=== PATIENT | female | born 1960 | race Caucasian/White ===

== ENCOUNTER 2024-04-01 17:05 | Inpatient (IN) | payer MEDICARE, MEDICAID, SELFPAY ==
[2024-04-01] VITALS (48 sets, daily range): BP systolic 105–161; BP diastolic 60–105; PULSE 78–145; RESP 14–55; TEMP 36.5; O2SAT 91–100
--- NOTE | ~2024-04-01 | CT_ITS ---
EXAMINATION: CTA chest PE protocol DATE: 04/01/2024 19:20 INDICATION: cp, sob, tachycardia, hypoxia TECHNIQUE: Computed tomography angiography (CTA) of the chest was performed with 100 mL Omnipaque-350 intravenous contrast timed to evaluate the pulmonary arteries. Coronal maximum intensity projection 3D-reconstructions were created by the technologist. The dose-length product (DLP) was 1119.04 mGy-cm . Automated exposure control and iterative reconstruction technique were employed. COMPARISON: None. FINDINGS: Lung parenchyma and airways: Bilateral dependent atelectasis, otherwise clear. Patent airways. Pleura: Unremarkable. Thoracic inlet, axillae and chest wall: Unremarkable. Thoracic aorta: No significant dilation. No dissection. Mild atherosclerotic calcifications. Mediastinum: Dilated central pulmonary arteries as can be seen with pulmonary arterial hypertension. Heart and pericardium: Cardiomegaly. Coronary artery calcifications: Moderate. Upper abdomen: No significant finding. Bones: Cholelithiasis, without inflammatory changes. Severe left kidney atrophy.. Pulmonary arteries: Study quality: Adequate. No pulmonary emboli detected. IMPRESSION: No CT evidence of acute pulmonary embolus. No acute process detected in the chest. Reviewed, dictated and finalized at location K. H EXPERT
--- NOTE | ~2024-04-01 | XR_ITS ---
Portable chest x-ray Comparison: 04/10/2024 Clinical History: Hypoxia Findings: Probable mild central pulmonary venous congestive change present. Questionable developing hazy opacity right lung base. Cardiomediastinal silhouette is stable. Bones and soft tissues are unr emarkable. Impression: Central congestive change and questionable focal developing hazy right basilar airspace disease. Stable cardiomegaly. Reviewed, dictated and finalized at location . R AND FIRE TECHNICIAN Impression: Central congestive change and questionable focal developing hazy right basilar airspace disease. Stable cardiomegaly.
--- NOTE | ~2024-04-01 | XR_ITS ---
CHEST RADIOGRAPH CLINICAL HISTORY: ?CHF . COMPARISON: Reference is made to a CTA of the chest dated 04/01/2024 (3 days earlier) TECHNIQUE: Single portable view of the chest. FINDINGS The cardiomediastinal silhouette is unremarkable. Increased interstitial markings are identified bilaterally, findings suggesting mild pulmonary vascul ar congestion. The lungs are otherwise clear. IMPRESSION: Mild pulmonary vascular congestion, without focal infiltrate or effusion. Reviewed, dictated and finalized at location A. PROFESSIONAL
--- NOTE | ~2024-04-01 | XR_ITS ---
EXAMINATION: XR chest 1V portable DATE: 04/10/2024 08:48 INDICATION: Congestive heart failure TECHNIQUE: frontal view of the chest was obtained. COMPARISON: Chest radiograph dated 04/09/24 FINDINGS: Cardiomegaly with diffuse increased interstitial pattern with peripheral Lucy B-lines consistent wi th mild pulmonary edema. Airspace opacities in the left lower lung zone likely related to atelectasis although differential includes pneumonia. No pleural effusion or pneumothorax. IMPRESSION: 1. Likely congestive heart failure with cardiomegaly and mild pulmonary edema. 2. Atelectasis versus less likely pneumonia in the left lower lung zone. Reviewed, dictated and finalized at location B. PRESIDENT OF MARKETING
--- NOTE | ~2024-04-01 | US_ITS ---
EXAMINATION: US venous doppler LE DATE: 04/01/2024 19:41 INDICATION: le pain, swelling . TECHNIQUE: Grayscale images without and with compression and Doppler images of the bilateral lower ex tremity veins were obtained. COMPARISON: None FINDINGS: The right common femoral vein, profunda (deep) femoral vein, femoral vein, popliteal vein, peroneal v ein, posterior tibial veins, gastrocnemius vein, and greater saphenous vein are patent. The left common femoral vein, profunda (deep) femoral vein, femoral vein, popliteal vein, peroneal v ein, posterior tibial veins, gastrocnemius vein, and greater saphenous vein are patent. IMPRESSION: Patent bilateral lower extremity veins. No evidence of deep venous thrombosis. Reviewed, dictated and finalized at location K. MING POOL ATTENDANT
--- NOTE | ~2024-04-01 | XR_ITS ---
CHEST RADIOGRAPH CLINICAL HISTORY: Hypoxia . COMPARISON: 04/06/2024 TECHNIQUE: Single portable view of the chest. FINDINGS The cardiomediastinal silhouette is enlarged, unchanged. Increased interstitial markings are identified bilaterally, findings suggesting moderate pulmonary va scular congestion. Air bronchograms are present within the right mid to lower lung field suggesting an early infiltrate. The remainder of the lungs are clear. IMPRESSION: Moderate pulmonary vascular congestion with possible early infiltrate in the right mid to lower lung field. Reviewed, dictated and finalized at location A. CE DISPATCHER IMPRESSION: Moderate pulmonary vascular congestion with possible early infiltrate in the ri ght mid to lower lung field.
--- NOTE | ~2024-04-01 | XR_ITS ---
EXAMINATION: XR chest 1V portable DATE: 04/06/2024 11:11 INDICATION: Hypoxia TECHNIQUE: frontal view of the chest was obtained. COMPARISON: Chest radiograph dated 04/04/2024 FINDINGS: Cardiomegaly. Pulmonary vascular congestion and mild increased interstitial pattern in the bilateral lower lung zones consistent with mild pulmonary edema. No pleural effusion or pneumothorax. IMPRESSION: 1. Likely congestive heart failure with cardiomegaly, pulmonary vascular congestion and mild pulmonar y edema in the lower lung zones. Reviewed, dictated and finalized at location A. NICAL PRODUCER IMPRESSION: 1. Likely congestive heart failure with cardiomegaly, pulmonary vascular conges tion and mild pulmonary edema in the lower lung zones.
--- NOTE | ~2024-04-01 | US_ITS ---
EXAMINATION: US renal BI DATE: 04/05/2024 14:55 INDICATION: Acute kidney injury on chronic kidney disease. TECHNIQUE: Multiple ultrasound grayscale images of the kidneys were obtained. COMPARISON: Chest CT 04/01/2024 FINDINGS: The right kidney measures 10.8 x 6.0 x 5.7 cm. The left kidney is severely atrophic and not well visu alized. The right kidney demonstrates normal parenchymal echogenicity. There is no hydronephrosis. Th e bladder is not well distended. IMPRESSION: 1. Normal right kidney. 2. Severe atrophy of left kidney. Reviewed, dictated and finalized at location A. GER WIND
--- NOTE | 2024-04-01 17:18 | ECG_ITS ---
Test Date: 2024-04-01 17:26:43 Measurements Intervals [place] Rate: 117 P: 0 MD: 0 QRS: -55 QRSD: 158 T: 105 QT: 393 QTc: 550 Interpretive Statements ATRIAL FIBRILLATION WITH RAPID VENTRICULAR RESPONSE LEFT AXIS DEVIATION LEFT BUNDLE BRANCH BLOCK BASELINE ARTIFACT- I, II, III, AVR, AVL, AVF, V2 ABNORMAL ECG No previous ECG available for comparison Electronically Signed On 04-01-2024 19:05:21 [employer] by Kristofer Campa D.O.
--- NOTE | 2024-04-01 17:25 | ED_ITS ---
HPI - SOB/Dyspnea General Chief Complaint: Shortness of Breath/Dyspnea <Sarita Valverde PA-C - Last Filed: 04/02/24 01:48> Stated Complaint: CP <CHRISTINE العلي Last Filed: 04/02/24 01:48> Time Seen by Provider: 04/01/24 17:11 <CHRISTINE العلي Last Filed: 04/02/24 01:48> Source: patient <CHRISTINE العلي Last Filed: 04/02/24 01:48> Mode of arrival: EMS <CHRISTINE العلي Last Filed: 04/02/24 01:48> Limitations: no limitations <CHRISTINE العلي Last Filed: 04/02/24 01:48> History of Present Illness HPI Narrative: This is a 64-year-old female that presents to the emergency department for hypoxia. She was evaluated at urgent care she has been having pain down her right leg. She is to be hypoxic after walking into the facility. Placed on 4 L nasal cannula. She does not usually wear oxygen. Patient has history of coronary artery disease, diabetes, chronic kidney disease, CHF. Also noted to be in AFib with RVR which would be new for her. Reports she was having some chest discomfort earlier today. No currnet chest pain. Reports a mild cough. Reports mild swelling in the lower extremities. Denies fevers. <Sarita Valverde PA-C - Last Filed: 04/02/24 01:48> Related Data Home Medications: Home Medications ?Medication ?Instructions ?Recorded ?Confirmed ?Last Taken ?Type albuterol sulfate 90 mcg/actuation 2 puff inhalation PRN 04/02/24 04/02/24 04/01/24 08:00 History aerosol inhaler 2 puff allopurinol 100 mg tablet See Rx Instructions PO .COMPLEX 04/02/24 04/02/24 04/01/24 08:00 History 300 mg atorvastatin 80 mg tablet 80 mg PO DAILY 04/02/24 04/02/24 04/01/24 08:00 History 80 mg buspirone 5 mg tablet 5 mg PO BID 04/02/24 04/02/24 04/01/24 08:00 History 5 mg clopidogrel 75 mg tablet 75 mg PO DAILY 04/02/24 04/02/24 04/01/24 08:00 History 75 mg empagliflozin 10 mg tablet 10 mg PO DAILY 04/02/24 04/02/24 04/01/24 08:00 History (Jardiance) 10 mg eplerenone 25 mg tablet 25 mg PO DAILY 04/02/24 04/02/24 04/01/24 08:00 History 25 mg escitalopram oxalate 20 mg tablet 20 mg PO DAILY 04/02/24 04/02/24 04/01/24 08:00 History 20 mg ezetimibe 10 mg tablet 10 mg PO DAILY 04/02/24 04/02/24 04/01/24 08:00 History 10 mg insulin lispro 100 unit/mL 1 sliding scale dose subcut ACHS 04/02/24 04/02/24 04/01/24 00:00 History subcutaneous pen (Humalog KwikPen 10 u (U-100) Insulin) isosorbide mononitrate 120 mg 120 mg PO DAILY 04/02/24 04/02/24 04/01/24 08:00 History tablet,extended release 24 hr 120 mg levothyroxine 100 mcg tablet 100 mcg PO DAILY 04/02/24 04/02/24 04/02/24 08:00 History 100 mcg metoprolol succinate 25 mg 25 mg PO DAILY 04/02/24 04/02/24 04/01/24 08:00 History tablet,extended release 24 hr 25 mg sacubitril 97 mg-valsartan 103 mg 1 tablet PO BID 04/02/24 04/02/24 04/01/24 08:00 History tablet (Entresto) 1 tablet semaglutide 0.25 mg or 0.5 mg (2 0.25 mg subcut WEEKLY 04/02/24 04/02/24 03/30/24 08:00 History mg/3 mL) subcutaneous pen injector 0.25 mg (Ozempic) torsemide 10 mg tablet See Rx Instructions PO .COMPLEX 04/02/24 04/02/24 04/01/24 08:00 History 40 <Sarita Valverde PA-C - Last Filed: 04/02/24 01:48> Allergies/Adverse Reactions: Allergies Allergy/AdvReac Type Severity Reaction Status Date / Time Penicillins Allergy Severe Hives Verified 04/01/24 17:28 <Sarita Valverde PA-C - Last Filed: 04/02/24 01:48> Review of Systems 2 Review of Systems: CONSTITUTIONAL: Denies fever CARDIOVASCULAR: Reports chest pain, and edema. RESPIRATORY: Reports cough and dyspnea. <Sarita Valverde PA-C - Last Filed: 04/02/24 01:48> All systems reviewed & are unremarkable except as noted in HPI and below < Sarita Valverde PA-C - Last Filed: 04/02/24 01:48> [facility] Past Medical History Medical History: Medical History (Updated 04/02/24 @ 15:27 by Carolyne Gage, ISABEL) History of diabetes mellitus History of chronic kidney disease History of CHF (congestive heart failure) History of coronary artery disease <Sarita Valverde PA-C - Last Filed: 04/02/24 01:48> Family History Family History: Family History (Updated 04/02/24 @ 14:47 by Sarita Henriquez RN) Mother Uterus cancer Alzheimer dementia S/P CABG x 3 Father Lung cancer Sibling Transplanted kidney Myocardial infarct Cerebrovascular accident Brittle diabetes Diabetes mellitus <Sarita Valverde PA-C - Last Filed: 04/02/24 01:48> Social History Social History: Social History (Updated 04/01/24 @ 17:31 by Sarita Valverde PA-C) Smoking status: Never smoker Alcohol intake: never Substance use: never Substance use type: does not use Do You Feel Safe in your Home?: Yes Lack of Transportation: No Lack of Food: Never True Current Housing: I Do Not Have Housing Concerned About Future Housing: No Difficulty Paying Gas/Electric Bills: No Difficulty Paying for Meds: No Currently Unemployed: No Education: Associate Degree Difficulty w/ Childcare or Family Care: No Spiritual care concerns: No <Sarita Valverde PA-C - Last Filed: 04/02/24 01:48> Exam 2 Narrative: GENERAL: Well-appearing, obese, and in no acute distress. HEAD: Normocephalic, atraumatic. EYES: EOMI. ENT: Nares clear, no rhinorrhea or epistaxis. Mucous membranes moist. Oropharynx without tonsillar hypertrophy exudate or other lesions. NECK: Supple. No adenopathy or masses. CHEST: Clear to auscultation. No respiratory distress. No wheezes rales or rhonchi HEART: Irregularly irregular. No murmur heard. Normal peripheral pulses. EXTREMITIES: Normal range of motion. Mild edema to the bilateral lower extremities SKIN: Warm, dry, no rash. NEURO: No focal deficits. Alert and oriented x3. PSYCH: Normal mood and affect <Sarita Valverde PA-C - Last Filed: 04/02/24 01:48> Course Course Emergency Course: patient updated on her workup and recommendation for admission <Sarita Valverde PA-C - Last Filed: 04/02/24 01:48> LABORATORY CHIEF/PA Physician Supervision For this patient encounter, I reviewed the LABORATORY CHIEF or PA documentation, treatment plan, and medical decision making; and I had [id number] time with this patient. <Vince Whitaker MD - Last Filed: 04/02/24 23:56> Consultations Consultation #1: spoke with hospitalist about patient and workup who accepts admission < Sarita Valverde PA-C - Last Filed: 04/02/24 01:48> Date: 04/01/24 <Sarita Valverde PA-C - Last Filed: 04/02/24 01:48> Vital Signs Vital signs: Vital Signs Temperature 97.7 F 04/01/24 17:01 Pulse Rate 126 H 04/01/24 17:01 Respiratory Rate 24 H 04/01/24 17:01 Blood Pressure 130/86 04/01/24 17:01 Pulse Oximetry 93 04/01/24 17:01 Oxygen Delivery Nasal Cannula 04/01/24 17:01 Oxygen Flow Rate 4 04/01/24 17:01 Temperature 98.3 F 04/02/24 23:45 Pulse Rate 88 04/02/24 23:45 Respiratory Rate 20 04/02/24 23:45 Blood Pressure 127/45 L 04/02/24 23:45 Pulse Oximetry 97 04/02/24 23:45 Oxygen Delivery Nasal Cannula 04/02/24 20:00 Oxygen Flow Rate 2 04/02/24 20:00 <Sarita Valverde PA-C - Last Filed: 04/02/24 01:48> Vital Signs Temperature 97.7 F 04/01/24 17:01 Pulse Rate 126 H 04/01/24 17:01 Respiratory Rate 24 H 04/01/24 17:01 Blood Pressure 130/86 04/01/24 17:01 Pulse Oximetry 93 04/01/24 17:01 Oxygen Delivery Nasal Cannula 04/01/24 17:01 Oxygen Flow Rate 4 04/01/24 17:01 Temperature 98.3 F 04/02/24 23:45 Pulse Rate 88 04/02/24 23:45 Respiratory Rate 20 04/02/24 23:45 Blood Pressure 127/45 L 04/02/24 23:45 Pulse Oximetry 97 04/02/24 23:45 Oxygen Delivery Nasal Cannula 04/02/24 20:00 Oxygen Flow Rate 2 04/02/24 20:00 <Vince Whitaker MD - Last Filed: 04/02/24 23:56> MDM - SOB/Dyspnea MDM Narrative Medical decision making narrative: Patient presents to the emergency department from urgent care for respiratory failure with hypoxia, he was a atrial fibrillation with RVR. Patient stable on 4 L nasal cannula. Rates initially in the 120s showing AFib. Given a dose of metoprolol IV. She did convert to sinus rhythm. Cbc without leukocytosis. Reporting some chest discomfort earlier in the day. No active chest pain at this time. Her baseline and 3 hour troponin are negative. Influenza, RSV and COVID screens are negative. CT of the chest obtained for further evaluation. No evidence for PE. Patient also reporting some leg discomfort. Bilateral venous Doppler without evidence of DVT. patient updated on her workup and recommendation for admission. spoke with hospitalist about patient and workup who accepts admission <Sarita Valverde PA-C - Last Filed: 04/02/24 01:48> Differential Diagnosis Differential diagnosis: Likely congestive heart failure, community acquired pneumonia, pulmonary embolism and other (afib with RVR) <Sarita Valverde PA-C - Last Filed: 04/02/24 01:48> Lab Data Attestation: I reviewed the patient's lab results. <Sarita Valverde PA-C - Last Filed: 04/02/24 01:48> Result diagrams: 04/02/24 19:36 04/02/24 05:46 <Sarita Valverde PA-C - Last Filed: 04/02/24 01:48> Labs: Lab Results 04/01/24 04/01/24 04/01/24 Range/Units 17:32 18:20 21:42 WBC 8.8 (4.5-10.0) K/mm3 RBC 3.58 L (4.2-5.4) M/mm3 Hgb 10.8 L (12.0-15.0) g/dL Hct 35.3 L (37.0-47.0) % MCV 98.6 (80-100) fl MCH 30.2 (26-34) pg MCHC 30.6 L (32-36) g/dl RDW 14.5 (11.5-14.5) % Plt Count 233 (150-375) k/mm3 MPV 9.6 (7.4-10.4) fl Immature Gran % (Auto) 0.5 (0-0.5) % Neut % (Auto) 87.1 H (45.5-73.1) % Lymph % (Auto) 5.6 L (18.3-44.2) % Blaine % (Auto) 5.3 (2.6-8.5) % Eos % (Auto) 1.0 (0-4.4) % Baso % (Auto) 0.5 (0.2-1.2) % Lymph # (Auto) 0.49 L (0.9-3.2) K/mm3 Blaine # (Auto) 0.5 (0.1-0.6) K/mm3 Eos # (Auto) 0.1 (0-0.3) K/mm3 Baso # (Auto) 0.0 (0.0-0.1) K/mm3 Abs Immat Gran (auto) 0.04 H (0.00-0.031) K/mm3 Absolute Neuts (auto) 7.7 H (1.3-6.7) K/mm3 Absolute Nucleated RBC 0.000 (0.0-0.012) K/mm3 Nucleated RBC % 0.0 (0.0-0.2) % PT 13.6 (11.1-14.7) Seconds INR 1.0 APTT 30.2 (22.3-36.8) Seconds Sodium 142 (137-145) mmol/L Potassium 4.0 (3.4-5.0) mmol/L Chloride 104 (98-107) mmol/L Carbon Dioxide 27 (22-30) mmol/L Anion Gap 11 (4-12) mmol/L BUN 46 H (7-17) mg/dL Creatinine 1.55 H (0.7-1.0) mg/dL Estim Creat Clear Calc 43 ml/min Estimated GFR 33 L (59 - ) Glucose 62 L (65-110) mg/dL POC Capillary Glucose 52 L* (65-105) mg/dl Calcium 9.6 (8.4-10.2) mg/dL Total Bilirubin 0.6 (0.2-1.3) mg/dL AST 19 (14-36) U/L ALT 13 (6-35) U/L Alkaline Phosphatase 95 (38-126) U/L Troponin I 0.022 0.032 D (0.000-0.034) ng/mL NT-Pro-B Natriuret Pep 2450 H (19.9-100) pg/mL Total Protein 7.0 (6.3-8.2) g/dL Albumin 3.6 (3.5-5.1) g/dL Influenza A (RT-PCR) Negative (Negative) Influenza B (RT-PCR) Negative (Negative) RSV (RT-PCR) Negative (Negative) SARS-CoV-2 RNA (RT-PCR) Negative (Negative) 04/01/24 04/02/24 04/02/24 Range/Units 22:06 05:46 06:09 WBC 6.2 (4.5-10.0) K/mm3 RBC 3.31 L (4.2-5.4) M/mm3 Hgb 9.8 L (12.0-15.0) g/dL Hct 32.7 L (37.0-47.0) % MCV 98.8 (80-100) fl MCH 29.6 (26-34) pg MCHC 30.0 L (32-36) g/dl RDW 14.6 H (11.5-14.5) % Plt Count 233 (150-375) k/mm3 MPV 9.8 (7.4-10.4) fl Immature Gran % (Auto) 0.3 (0-0.5) % Neut % (Auto) 74.9 H (45.5-73.1) % Lymph % (Auto) 13.9 L (18.3-44.2) % Blaine % (Auto) 7.4 (2.6-8.5) % Eos % (Auto) 2.9 (0-4.4) % Baso % (Auto) 0.6 (0.2-1.2) % Lymph # (Auto) 0.86 L (0.9-3.2) K/mm3 Blaine # (Auto) 0.5 (0.1-0.6) K/mm3 Eos # (Auto) 0.2 (0-0.3) K/mm3 Baso # (Auto) 0.0 (0.0-0.1) K/mm3 Abs Immat Gran (auto) 0.02 (0.00-0.031) K/mm3 Absolute Neuts (auto) 4.6 (1.3-6.7) K/mm3 Absolute Nucleated RBC 0.000 (0.0-0.012) K/mm3 Nucleated RBC % 0.0 (0.0-0.2) % PT 13.7 (11.1-14.7) Seconds INR 1.0 APTT 30.8 (22.3-36.8) Seconds Sodium 142 (137-145) mmol/L Potassium 4.1 (3.4-5.0) mmol/L Chloride 106 (98-107) mmol/L Carbon Dioxide 30 (22-30) mmol/L Anion Gap 6 (4-12) mmol/L BUN 45 H (7-17) mg/dL Creatinine 1.59 H (0.7-1.0) mg/dL Estim Creat Clear Calc 42 ml/min Estimated GFR 32 L (59 - ) Glucose 95 (65-110) mg/dL POC Capillary Glucose 116 H (65-105) mg/dl Calcium 9.2 (8.4-10.2) mg/dL Total Bilirubin 0.6 (0.2-1.3) mg/dL AST 20 (14-36) U/L ALT 10 (6-35) U/L Alkaline Phosphatase 86 (38-126) U/L Troponin I (0.000-0.034) ng/mL NT-Pro-B Natriuret Pep (19.9-100) pg/mL Total Protein 7.0 (6.3-8.2) g/dL Albumin 3.3 L (3.5-5.1) g/dL Influenza A (RT-PCR) (Negative) Influenza B (RT-PCR) (Negative) RSV (RT-PCR) (Negative) SARS-CoV-2 RNA (RT-PCR) (Negative) <Sarita Valverde PA-C - Last Filed: 04/02/24 01:48> Lab Results 04/01/24 04/01/24 04/01/24 Range/Units 17:32 18:20 21:42 WBC 8.8 (4.5-10.0) K/mm3 RBC 3.58 L (4.2-5.4) M/mm3 Hgb 10.8 L (12.0-15.0) g/dL Hct 35.3 L (37.0-47.0) % MCV 98.6 (80-100) fl MCH 30.2 (26-34) pg MCHC 30.6 L (32-36) g/dl RDW 14.5 (11.5-14.5) % Plt Count 233 (150-375) k/mm3 MPV 9.6 (7.4-10.4) fl Immature Gran % (Auto) 0.5 (0-0.5) % Neut % (Auto) 87.1 H (45.5-73.1) % Lymph % (Auto) 5.6 L (18.3-44.2) % Blaine % (Auto) 5.3 (2.6-8.5) % Eos % (Auto) 1.0 (0-4.4) % Baso % (Auto) 0.5 (0.2-1.2) % Lymph # (Auto) 0.49 L (0.9-3.2) K/mm3 Blaine # (Auto) 0.5 (0.1-0.6) K/mm3 Eos # (Auto) 0.1 (0-0.3) K/mm3 Baso # (Auto) 0.0 (0.0-0.1) K/mm3 Abs Immat Gran (auto) 0.04 H (0.00-0.031) K/mm3 Absolute Neuts (auto) 7.7 H (1.3-6.7) K/mm3 Absolute Nucleated RBC 0.000 (0.0-0.012) K/mm3 Nucleated RBC % 0.0 (0.0-0.2) % PT 13.6 (11.1-14.7) Seconds INR 1.0 APTT 30.2 (22.3-36.8) Seconds Sodium 142 (137-145) mmol/L Potassium 4.0 (3.4-5.0) mmol/L Chloride 104 (98-107) mmol/L Carbon Dioxide 27 (22-30) mmol/L Anion Gap 11 (4-12) mmol/L BUN 46 H (7-17) mg/dL Creatinine 1.55 H (0.7-1.0) mg/dL Estim Creat Clear Calc 43 ml/min Estimated GFR 33 L (59 - ) Glucose 62 L (65-110) mg/dL POC Capillary Glucose 52 L* (65-105) mg/dl Calcium 9.6 (8.4-10.2) mg/dL Total Bilirubin 0.6 (0.2-1.3) mg/dL AST 19 (14-36) U/L ALT 13 (6-35) U/L Alkaline Phosphatase 95 (38-126) U/L Troponin I 0.022 0.032 D (0.000-0.034) ng/mL NT-Pro-B Natriuret Pep 2450 H (19.9-100) pg/mL Total Protein 7.0 (6.3-8.2) g/dL Albumin 3.6 (3.5-5.1) g/dL Influenza A (RT-PCR) Negative (Negative) Influenza B (RT-PCR) Negative (Negative) RSV (RT-PCR) Negative (Negative) SARS-CoV-2 RNA (RT-PCR) Negative (Negative) 04/01/24 04/02/24 04/02/24 Range/Units 22:06 05:46 06:09 WBC 6.2 (4.5-10.0) K/mm3 RBC 3.31 L (4.2-5.4) M/mm3 Hgb 9.8 L (12.0-15.0) g/dL Hct 32.7 L (37.0-47.0) % MCV 98.8 (80-100) fl MCH 29.6 (26-34) pg MCHC 30.0 L (32-36) g/dl RDW 14.6 H (11.5-14.5) % Plt Count 233 (150-375) k/mm3 MPV 9.8 (7.4-10.4) fl Immature Gran % (Auto) 0.3 (0-0.5) % Neut % (Auto) 74.9 H (45.5-73.1) % Lymph % (Auto) 13.9 L (18.3-44.2) % Blaine % (Auto) 7.4 (2.6-8.5) % Eos % (Auto) 2.9 (0-4.4) % Baso % (Auto) 0.6 (0.2-1.2) % Lymph # (Auto) 0.86 L (0.9-3.2) K/mm3 Blaine # (Auto) 0.5 (0.1-0.6) K/mm3 Eos # (Auto) 0.2 (0-0.3) K/mm3 Baso # (Auto) 0.0 (0.0-0.1) K/mm3 Abs Immat Gran (auto) 0.02 (0.00-0.031) K/mm3 Absolute Neuts (auto) 4.6 (1.3-6.7) K/mm3 Absolute Nucleated RBC 0.000 (0.0-0.012) K/mm3 Nucleated RBC % 0.0 (0.0-0.2) % PT 13.7 (11.1-14.7) Seconds INR 1.0 APTT 30.8 (22.3-36.8) Seconds Sodium 142 (137-145) mmol/L Potassium 4.1 (3.4-5.0) mmol/L Chloride 106 (98-107) mmol/L Carbon Dioxide 30 (22-30) mmol/L Anion Gap 6 (4-12) mmol/L BUN 45 H (7-17) mg/dL Creatinine 1.59 H (0.7-1.0) mg/dL Estim Creat Clear Calc 42 ml/min Estimated GFR 32 L (59 - ) Glucose 95 (65-110) mg/dL POC Capillary Glucose 116 H (65-105) mg/dl Calcium 9.2 (8.4-10.2) mg/dL Total Bilirubin 0.6 (0.2-1.3) mg/dL AST 20 (14-36) U/L ALT 10 (6-35) U/L Alkaline Phosphatase 86 (38-126) U/L Troponin I (0.000-0.034) ng/mL NT-Pro-B Natriuret Pep (19.9-100) pg/mL Total Protein 7.0 (6.3-8.2) g/dL Albumin 3.3 L (3.5-5.1) g/dL Influenza A (RT-PCR) (Negative) Influenza B (RT-PCR) (Negative) RSV (RT-PCR) (Negative) SARS-CoV-2 RNA (RT-PCR) (Negative) <Vince Whitaker MD - Last Filed: 04/02/24 23:56> Imaging Data Radiologist's impression: ITS Impressions Chest CTA 04/01/24 19:46 IMPRESSION: No CT evidence of acute pulmonary embolus. No acute process detected in the chest. Venous Doppler Study 04/01/24 19:59 IMPRESSION: Patent bilateral lower extremity veins. No evidence of deep venous thrombosis. <Sarita Valverde PA-C - Last Filed: 04/02/24 01:48> ECG Data EKG #1: ECG completion date: 04/01/24 <Sarita Valverde PA-C - Last Filed: 04/02/24 01:48> EKG Interpretation: atrial fibrillation (with RVR) and LBBB <Sarita Valverde PA-C - Last Filed: 04/02/24 01:48> EKG #2: ECG completion date: 04/01/24 <Sarita Valverde PA-C - Last Filed: 04/02/24 01:48> EKG Interpretation: normal rate, sinus rhythm and LBBB <Sarita Valverde PA-C - Last Filed: 04/02/24 01:48> Critical Care Time Critical Care Time Critical Care Time: Yes <Sarita Valverde PA-C - Last Filed: 04/02/24 01:48> Total Critical Care Time: 35 <CHRISTINE العلي Last Filed: 04/02/24 01:48> Discharge Plan Discharge Clinical Impression: Acute hypoxic respiratory failure, Atrial fibrillation with RVR <Sarita Valverde PA-C - Last Filed: 04/02/24 01:48> Patient Disposition: Still a Patient <Sarita Valverde PA-C - Last Filed: 04/02/24 01:48> Condition: Improved <CHRISTINE العلي Last Filed: 04/02/24 01:48>
[2024-04-01 17:40] LABS: Basophils Percent Auto 0.5 % (0.2-1.2); Eosinophils Absolute Auto 0.1 K/mm3 (0-0.3); Hematocrit 35.3 % (37.0-47.0); Hemoglobin 10.8 g/dL (12.0-15.0); Immature Granulocyte Absolute 0.04 K/mm3 (0.00-0.031); Immature Granulocyte Percent A 0.5 % (0-0.5); Lymphocytes Absolute Auto 0.49 K/mm3 (0.9-3.2); Lymphocytes Percent Auto 5.6 % (18.3-44.2); Mean Corpuscular HGB Conc 30.6 g/dl (32-36); Mean Corpuscular Hemoglobin 30.2 pg (26-34); Mean Corpuscular Volume 98.6 fl (80-100); Mean Platelet Volume 9.6 fl (7.4-10.4); Monocytes Absolute Auto 0.5 K/mm3 (0.1-0.6); Monocytes Percent Auto 5.3 % (2.6-8.5); Neutrophils Absolute Auto 7.7 K/mm3 (1.3-6.7); Neutrophils Percent Auto 87.1 % (45.5-73.1); Platelet Count Result 233 k/mm3 (150-375); Red Blood Count 3.58 M/mm3 (4.2-5.4); Red Cell Distribution Width 14.5 % (11.5-14.5); White Blood Count 8.8 K/mm3 (4.5-10.0)
[2024-04-01 17:56] LABS: Alanine Aminotransferase 13 U/L (6-35); Albumin Level 3.6 g/dL (3.5-5.1); Alkaline Phosphatase 95 U/L (38-126); Anion Gap 11 mmol/L (4-12); Aspartate Amino Transferase 19 U/L (14-36); Bilirubin,Total 0.6 mg/dL (0.2-1.3); Blood Urea Nitrogen 46 mg/dL (7-17); Calcium 9.6 mg/dL (8.4-10.2); Carbon Dioxide 27 mmol/L (22-30); Chloride 104 mmol/L (98-107); Estimated CRCL calculation 43 ml/min; Estimated Glomerular Filt Rate 33; Glucose 62 mg/dL (65-110); Sodium 142 mmol/L (137-145)
[2024-04-01 18:05] LABS: NT Pro B Type Natriuretic Pept 2450 pg/mL (19.9-100)
[2024-04-01 18:08] LABS: Troponin I 0.022 ng/mL (0.000-0.034)
[2024-04-01 18:10] LABS: Prothrombin Time 13.6 Seconds (11.1-14.7)
[2024-04-01 18:11] LABS: Partial Thromboplastin Time 30.2 Seconds (22.3-36.8)
[2024-04-01 18:23] LABS: Influenza A QL RT-PCR Negative (Negative); Influenza B QL RT-PCR Negative (Negative); RSV RNA, RT-PCR Negative (Negative); SARS-CoV-2 RNA PCR Negative (Negative)
[2024-04-01 18:24] LABS: Glucose Point of Care 52 mg/dl (65-105)
[2024-04-01] MEDS: METOPROLOL TARTRATE INJ 5 MG/5 ML VIAL IV PUSH (18:27)
--- NOTE | 2024-04-01 18:42 | PC.NURSE ---
Pt hypoglycemic, given sandwich and juice PO. Tolerated well.
--- OUTSIDE RECORDS SUMMARY | 2024-04-01 18:45 | XMS_ITS | Clinical Summary ---
Author Organization [facility] Address [address] [place] [address] [place] [address] Care Team Providers Care Janitorial Manager Name Role Phone Himanshu Cantu MD Primary Care Provider + [phone] Source Comments [facility],non[facility] Affiliates and Associated Physician Practices is amultiple site organization consisting of ambulatory clinics and hospital sitesin [place], [place], [place] and [place]. This disclosure is being madepursuant to the Care Everywhere program and may not contain all information available regarding this patient. Last updated 17.[facility] Allergies Active Allergy Reactions Criticality Noted Date Comments Penicillins Urticaria 02/20/2008 Medications * Be aware that medications may not be up to date on this document. Alwaysverify current medications with the patient. Medication Sig Dispensed Refills Start Date End Date Status CARDIZEM CD 360 MG CP24 Take 360 mg by mouth daily. Active COREG 25 MG TABS Take 25 mg by mouth 2 times daily with breakfast and dinner. Active CRESTOR 20 MG TABS Take 20 mg by mouth daily. Active INSPRA 25 MG TABS Take 25 mg by mouth daily. Active insulin glargine (LANTUS SOLOSTAR) injectionIndication s:Diabetes mellitus type II, uncontrolled Inject 0.2 mL subcutaneously at bedtime. 5 11 02/20/2008 Active insulin lispro (HUMALOG KWIKPEN) injectionIndication s:Diabetes mellitus type II, uncontrolled Inject 0.2 mL subcutaneously 3 times daily before meals. 5 pens 11 02/20/2008 Active glucose blood (ONETOUCH ULTRA TEST STRIPS) strip Use 1 Strip once. 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 Acute gouty arthritis 02/20/2008 Hypertension, malignant 02/20/2008 Hypertensive nephropathy 02/20/2008 Gout 11/09/2006 Overview (11/06/2014): Diabetes mellitus type II, uncontrolled 12/23/19 06 CHF (congestive heart failure) 08/24/2004 Immunizations Name Administration Dates Next Due INFLUENZA VACCINE 10/30/2010 Family History Medical History Relation Name Comments Cancer Other 1 Alzheimer's Disease Other 2 Diabetes Other 3 Relation Name Status Comments Other 1 Other 2 Other 3 Social History Tobacco Use Types Packs/Day Years Used Date Smoking Tobacco: Never Alcohol Use Standard Drinks/Week Comments No 0 (1 standard drink = 0.6 oz pur e alcohol) Sex and Gender Information Value Date Recorded Sex Assigned at Not on file Gender Identity Not on file Sexual Orientation Not on file Last Filed Vital Signs Vital Sign Reading Time Taken Comments Blood Pressure 167/91 10/20/2015 11:00 AM CDT Pulse 78 10/20/2015 8:40 AM CDT Temperature 37 C (98.6 F) 11/26/2008 3:50 PM CDT Respiratory Rate - - Oxygen Saturation - - Inhaled Oxygen Concentration - - Weight 122.5 kg (270 lb) 10/20/2015 11:00 AM CDT Height 160.7 cm (5' 3.25 ) 10/20/2015 11:00 AM C DT Body Mass Index 47.45 10/20/2015 11:00 AM CDT Plan of Treatment Health Maintenance Due Date Last Done Comments BONE DENSITY TESTING 1960 COLOGUARD (AGES 45-75) - COL ON CA SCREENING 1958 COLON MONITORING 1958 COLONOSCOPY - COLON CA SCREENING 1958 CT COLONOGRAPHY - COLON CA SCREENING 1960 Colorectal Cancer Screening 1958 FIT - COLON CA SCREENING 1958 FLEX SIG - COLON CA SCREENING 1958 PAP SMEAR 1958 HIV SCREENING 1973 HEPATITIS C SCREENING 02/20/1976 DTAP/TDAP/TD VACCINES (1 - Tdap) 1977 PNEUMOCOCCAL VACCINE 50+ (1 of 1 - PCV) 02/25/2008 ZOSTER VACCINE (1 of 2) 02/25/2008 MAMMOGRAM 06/28/2013 06/29/2011 Respiratory Syncytial Virus (RSV) Vaccine Pt: or over 60 yrs (1 - Risk 60-74 years 1-dose series) 2018 COVID-19 VACCINE (1 - 2023-2 5 season) 2023 INFLUENZA VACCINE (#1) 2023 10/30/2010 DEPRESSION SCREENING 02/07/2024 HEPATITIS B VACCINE Aged Out No longe r eligible based on patient's age to complete this topic HIB VACCINE Aged Out No longer eligi ble based on patient's age to complete this topic HPV VACCINE Aged Out No longer eligi ble based on patient's age to complete this topic MENINGOCOCCAL (Group B) VACCINE Aged Out No longer eligible based on patient's age to complete this topic MENINGOCOCCAL VACCINE Aged Out No david corby eligible based on patient's age to complete this topic Procedures Procedure Name Priority Date/Time Associated Diagnosis Comments MAMMOGRAPHY ORDER Routine 06/29/2011 from Last 3 Months or Most Recently Relevant to Health Maintenance Results * MAMMOGRAPHY ORDER (06/29/2011) Anatomical Region Laterality Modality Other Josesito Mccord DO MAMMO ORDERABLES from Last 3 Months or Most Recently Relevant to Health Maintenance Care Teams Janitorial Manager Relationship Specialty Start Date End Date Himanshu Cantu MD PCP - General Family Medicine 10/20/15
--- OUTSIDE RECORDS SUMMARY | 2024-04-01 18:45 | XMS_ITS | Encounter Summary ---
Author Organization [facility] Address [address] [place] [address] Care Team Providers Care Toll Service Observer Name Role Phone Himanshu Cantu MD Primary Care Provider Brandin Mclain MD Unavailable Tyson Porras MD Unavailable [phone] Gadiel Adhikari MD Unavailable [phone] Abner Arauz NP Unavailable [phone] Yohannes Andersen MD Unavailable [phone] Suzanna Amaro MD Unavailable Maegan Castillo MD Unavailable Aline Guzman RN Unavailable [phone] Reason for Visit * Reason Onset Date Comments Scheduling Appointments 06/26/2020 joshua lizarraga dexa Encounter Details Date Type Department Care Team (Late st Contact Info) Description 06/26/2020 Telephone [facility] [address] [place] [id number] Nelli Myers RT Scheduling Appointments (confirmed dexa) Social History Tobacco Use Types Packs/Day Years Used Date Smoking Tobacco: Never Smokeless Tobacco: Never Alcohol Use Standard Drinks/Week Comments No 0 (1 standard drink = 0.6 oz pur e alcohol) PHQ-2 Answer Date Recorded PHQ-2 Total Score (If total score is 3 or more points, staff should administer the PHQ-9) 0 06/11/2020 Comments No Sex and Gender Information Value Date Recorded Sex Assigned at Not on file Legal 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 Gender Identity Not on file Sexual Orientation Not on file documented as of this encounter Plan of Treatment Not on file documented as of this encounter Visit Diagnoses Not on filedocumented in this encounter Additional Health Concerns Infection Onset Date Last Indicated Resolved Time COVID: Suspected 01/25/2024 01/25/2024 01/25/2024 4:18 PM FIRE CONTROL TECHNICIAN COVID: Suspected 02/22/2024 02/22/2024 02/22/2024 10:28 PM FIRE CONTROL TECHNICIAN documented as of this encounter Care Teams Toll Service Observer Relationship Specialty Start Date End Date Himanshu Cantu MD PCP - General 05/06/16 Brandin Mclain MD Consulting Physician Cardiology 09/07/17 Tyson Porras MD [address] [place] [address] [address] [address] Surgeon Orthopedic Surgery 09/07/17 Gadiel Adhikari MD [address] [place] [address] [address] [place] [address] Consulting Physician Endocrinology 09/07/17 11/19/23 [place] [address] [address] [address] Nurse Practitioner Internal Medicine 09/07/17 [place] [address] [address] [address] Consulting Physician Nephrology 09/07/17 Suzanna Amaro MD [address] [place] [address] Fellow Rheumatology 11/21/19 05/16/22 Maegan Castillo MD [address] [place] [address] Fellow Internal Medicine 05/17/22 Aline Guzman RN [address] [place] [address] [address] [place] [address] Acute Care Registered Nurse 02/27/24 documented as of this encounter
--- OUTSIDE RECORDS SUMMARY | 2024-04-01 18:45 | XMS_ITS | Encounter Summary ---
Author Organization [facility] Address [address] [place] [address] Care Team Providers Care Roll Threader Operator Name Role Phone Himanshu Cantu MD Primary Care Provider Brandin Mclain MD Unavailable Tyson Porras MD Unavailable Abner Arauz NP Unavailable Yohannes Andersen MD Unavailable [phone] Maegan Castillo MD Unavailable [phone] Aline Guzman RN Unavailable Reason for Visit * Auth/Cert (Routine) Specialty Diagnoses / Procedures Referred By Contac t Referred To Contact Diagnoses Personal history of colonic polyps Personal history of colonic polyps [Z86.010] Procedures AL COLONOSCOPY FLX DX W/COLLJ SPEC WHEN PFRMD COLONOSCOPY Referral ID Status Reason Start Date Expiration Date Visits Re quested Visits Authorized [id number] 1 1 Encounter Details Date Type Department Care Team (Late st Contact Info) Description 03/04/2024 Hospital Encounter [facility] [address] [place] [address] Simone Marin MD [address] [place] [address] [address] [place] [address] [id number] Social History Tobacco Use Types Packs/Day Years Used Date Smoking Tobacco: Never Smokeless Tobacco: Never Alcohol Use Standard Drinks/Week Comments No 0 (1 standard drink = 0.6 oz pur e alcohol) [facility] Utilities Answer Date Recorded In the past 12 months has th e electric, gas, oil, or water company threatened to shut off services in your home? No 02/27/2024 AUDIT-C Answer Date Recorded Q1: How often do you have a drink containing alcohol? Never 02/06/2024 Q2: How many drinks containi ng alcohol do you have on a typical day when you are drinking? Patient does not drink Q3: How often do you have si x or more drinks on one occasion? Never 02/06/2024 Overall Financial Resource Strain (CARDIA) Answe r Date Recorded How hard is it for you to pa y for the very basics like food, housing, medical care, and heating? Not very hard 02/27/2024 PHQ-2 Answer Date Recorded PHQ-2 Total Score (If total score is 3 or more points, staff should administer the PHQ-9) 0 02/22/2024 Hunger Vital Sign Answer Date Recorded Within the past 12 months, y ou worried that your food would run out before you got the money to buy more. Never true 02/26/19 25 Within the past 12 months, t he food you bought just didn't last and you didn't have money to get more. Never true 02/27/2024 PRAPARE - Transportation Answer Date Re corded In the past 12 months, has l ack of transportation kept you from medical appointments or from getting medications? No 02/07 In the past 12 months, has l ack of transportation kept you from meetings, work, or from getting things needed for daily living? No 02/27/2024 Housing Stability Vital Sign Answer Bj e Recorded In the last 12 months, was t here a time when you were not able to pay the mortgage or rent on time? No 02/27/2024 Number of Times Moved in the Last Year Not on fi le 02/27/2024 At any time in the past 12 m [facility], were you homeless or living in a fci (including now)? No 02/27/2024 Personal Safety Answer Date Recorded Have you ever been in or are you currently in a harmful physical or emotional relationship or is someone making you feel afraid or unsafe? 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 Never 02/06/2024 7:10 AM Juli Angel RN Q2: How many drinks containing alcohol do you have on a typical day when you are drinking? Patient does not drink 02/06/2024 7:10 AM Juli Angel RN Q3: How often do you have six or more drinks on one occasion? Never 02/06/2024 7:10 AM Juli Angel RN documented as of this encounter Plan of Treatment Not on file documented as of this encounter Goals Goal Patient Goal Type Associated Problems Recent Progress Patient-Stated? Author REYES General Goal - Patient schedules and keeps appointments with all recommended providers ACO Care Management On track(2024 12:49 PM INDEPENDENT CONTRACTOR) Aline Bales RN Note: Problem: Potential for medical complications and readmission if follow-up appointments are not scheduled Interventions: - Ensure all follow-up appointments are scheduled, all prescribed medications have been received. - Address any barriers for keeping scheduled appointment. - Coordinate with patient/caregiver(s) to ensure patient is able to keep scheduled appointment. - Emphasize importance of keeping scheduled appointments. - Identify and discuss questions for next provider visit. - Follow up with patient after scheduled appointment(s) to review any new orders or changes made to medication regimen. REYES General Goal - Patient is knowledgeable about condition when worsening and how to respond ACO Care Management On track(2024 12:49 PM INDEPENDENT CONTRACTOR) Aline Bales RN Note: Problem: Knowledge deficit related to signs and symptoms of worsening condition Interventions: - Assess patient's level of understanding related to their condition(s), specific medications and self-management of their chronic conditions. - Send educational materials to patient related to their chronic condition, including signs and symptoms, self-management actions, and serious symptoms that require urgent medical intervention. - Assist patient/provider in developing an action plan for symptom management. - Review with patient weekly: s/s worsening condition, self-management actions to take, when to call CM or provider. documented as of this encounter Visit Diagnoses Diagnosis Personal history of colonic polyps- Primary documented in this encounter Admitting Diagnoses Diagnosis Personal history of colonic polyps documented in this encounter Care Teams Roll Threader Operator Relationship Specialty Start Date End Date Himanshu Cantu MD PCP - General 05/06/16 Brandin Mclain MD Consulting Physician Cardiology 09/07/17 Tyson Porras MD [address] [place] [address] [address] [address] Surgeon Orthopedic Surgery 09/07/17 [place] [address] [address] [address] Nurse Practitioner Internal Medicine 09/07/17 [place] [address] [address] [address] Consulting Physician Nephrology 09/07/17 [place] [address] [address] [address] Fellow Internal Medicine 05/17/22 Aline Guzman RN [address] [place] [address] [address] [place] [address] Assistant Warehouse Manager 02/27/24 documented as of this encounter
--- OUTSIDE RECORDS SUMMARY | 2024-04-01 18:45 | XMS_ITS | Referral Summary ---
Author Organization [facility] Address [address] [place] [address] Care Team Providers Care Sfdc Solution Architect Name Role Phone Himanshu Cantu MD Primary Care Provider Gretchen Mclain MD Unavailable Tyson Porras MD Unavailable [phone] Abner Arauz NP Unavailable Yohannes Andersen MD Unavailable [phone] Maegan Castillo MD Unavailable Aline Guzman RN Unavailable Encounters Date Type Department Care Team Description 04/01/2024 4:45 PM ORACLE BUSINESS INTELLIGENCE DEVELOPER Office Visit [facility] Medical Group Convenient Care at [address] [phone] Joseluis Rose NP Hypoxia (Primary Dx); Tachycardia; Chest pain, unspecified type; Shortness of breath 03/22/2024 Orders Only [facility] Trans[facility] Heart [address] [facility] 340 Mailstop [phone] [place], [place] [phone] Luda Ko RN Chronic systolic congestive heart failure (CMS/HCC) (HCC) (Primary Dx) 03/21/2024 1:00 PM ORACLE BUSINESS INTELLIGENCE DEVELOPER Lab [address] Chronic systolic congestive heart failure (CMS/HCC) (HCC) 03/06/2024 Orders Only [facility] [address] [facility] 3401 Mailstop [phone] [place] [address] Luda Ko RN CAD in inupiat artery (Primary Dx); 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) 03/06/2024 Orders Only [facility] [address] [facility] 34[address] Mailstop [phone] [place] [address] Luda Ko RN Chronic systolic congestive heart failure (CMS/HCC) (HCC) (Primary Dx) 03/06/2024 2:30 PM ORACLE BUSINESS INTELLIGENCE DEVELOPER Office Visit [facility] Medical Group Primary Care at [address] [phone] Oneyda Viveros NP 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 (CMS/HCC) ([facility]) (Primary Dx); Type 2 diabetes mellitus with stage 4 chronic kidney disease, with long-term current use of insulin ([facility]/HCC) ([facility]); Class 3 severe obesity due to excess calories with serious comorbidity and body mass index (BMI) of 50.0 to 59.9 in adult ([facility]); Essential hypertension; Mixed hyperlipidemia; Chronic systolic congestive heart failure (CMS/HCC) (HCC); Chronic kidney disease (CKD), stage IV (severe) (CMS/HCC) ([facility]); Anxiety state; Mucopurulent chronic bronchitis (HCC) 03/05/2024 Orders Only [facility] Medical Group Primary Care at [address] [address] Oneyda Viveros NP 03/05/2024 11:00 AM ORACLE BUSINESS INTELLIGENCE DEVELOPER Lab [facility] Advanced Medicine [facility] ([facility]) [address] [place] [phone] Coronary artery disease involving inupiat coronary artery of inupiat heart without angina pectoris; Shortness of breath 03/05/2024 10:15 AM ORACLE BUSINESS INTELLIGENCE DEVELOPER Office Visit [facility] Cardiology [address] [place] [address] [place] [phone] Coronary artery disease involving inupiat coronary artery of inupiat heart without angina pectoris (Primary Dx); Shortness of breath; Ischemic cardiomyopathy; 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) 03/04/2024 Hospital Encounter [facility] [address] [place] [address] Simone Marin MD 03/01/2024 Telephone [facility] Care Organization [address] [place] [id number] Josseline Maxwell MA Unsuccessful Phone Call 1 ([facility]) 02/22/2024 6:55 PM ORACLE BUSINESS INTELLIGENCE DEVELOPER - 02/26/2024 2:13 PM ORACLE BUSINESS INTELLIGENCE DEVELOPER Hospital Encounter [address] [phone] Gretchen Mclain MD Baumann, MD Alena Woods Marc Alan, MD Acute on chronic combined systolic and diastolic heart failure (CMS/HCC) (HCC) [I50.43] (Primary Dx); 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); CAD in inupiat artery Discharge Disposition: Discharge to home or self care 02/23/2024 1:15 PM ORACLE BUSINESS INTELLIGENCE DEVELOPER - 02/23/2024 3:40 PM ORACLE BUSINESS INTELLIGENCE DEVELOPER Surgery [facility] [address] [place] [phone] Davi Carvajal MD PCI LEXIE ATHERECTOMY WITH STENT(S) - MAJOR CORONARY [id number] - [id number] 02/22/2024 Telephone [facility] [address] [facility] 3401 Mailstop [phone] [place] [address] Luda Ko RN 02/22/2024 3:00 PM ORACLE BUSINESS INTELLIGENCE DEVELOPER Office Visit [facility] Medical Group Primary Care at [address] [phone] Himanshu Cantu MD Type 2 diabetes mellitus with stage 4 chronic kidney disease, with long-term current use of insulin (CMS/HCC) (HCC) (Primary Dx); Essential hypertension; Mixed hyperlipidemia 02/20/2024 Orders Only Nephrology Yohannes Andersen MD Chronic kidney disease (CKD) stage G3b/A1, moderately decreased glomerular filtration rate (GFR) between 30-44 mL/min/1.73 square meter and albuminuria creatinine ratio less than 30 mg/g (HCC) (Primary Dx) 02/20/2024 Orders Only Nephrology Yohannes Andersen MD Chronic kidney disease (CKD) stage G3b/A1, moderately decreased glomerular filtration rate (GFR) between 30-44 mL/min/1.73 square meter and albuminuria creatinine ratio less than 30 mg/g (HCC) (Primary Dx) 02/13/2024 9:35 AM ORACLE BUSINESS INTELLIGENCE DEVELOPER [address] Chronic systolic congestive heart failure (CMS/HCC) ([facility]); 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 ([facility]/HCC) ([facility]) 02/13/2024 9:[address] Type 2 diabetes mellitus with stage 4 chronic kidney disease, with long-term current use of insulin (CMS/HCC) ([facility]); Essential hypertension; Mixed hyperlipidemia; Vitamin D deficiency 02/09/2024 Telephone [facility] [address] [address] Mail[address] [phone] [place] [address] Luda Ko RN 02/06/2024 8:30 AM [facility] - 02/06/2024 9:55 AM [facility] Surgery [facility] [address] [place] [phone] Davi Carvajal MD LEFT HEART CATHETERIZATION WITH CORONARY ANGIOGRAPHY AND WITH OR WITHOUT LEFT VENTRICULOGRAM [id number] 02/06/2024 6:47 AM ORACLE BUSINESS INTELLIGENCE DEVELOPER - 02/06/2024 12:28 PM [facility] Hospital 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) Discharge Disposition: Discharge to home or self care 02/05/2024 9:00 AM ORACLE BUSINESS INTELLIGENCE DEVELOPER Office Visit [facility] Medical [facility] ENT Specialists - [address] [place] [phone] Stephanie Valiente, DO Other infective acute otitis externa of right ear 02/02/2024 Telephone [facility] Surgery [facility] [place] [address] [place] [address] Kevin Benitez CMA 02/02/2024 Telephone [facility] Trans[facility] Heart [address] [facility] [address] Mail[address] [phone] [place] [address] Luda Ko RN 02/01/2024 12:35 PM ORACLE BUSINESS INTELLIGENCE DEVELOPER Lab [address] 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 (CMS/HCC) (HCC); Chronic systolic congestive heart failure (CMS/HCC) (HCC) 01/25/2024 4:00 PM ORACLE BUSINESS INTELLIGENCE DEVELOPER Office Visit [facility] Medical Group [facility] Care at [address] [phone] Loyda Wetzel NP Cough, unspecified type (Primary Dx); Other infective acute otitis externa of right ear 01/22/2024 Telephone [facility] [address] [facility] [address] Mail[address] [phone] [place] [address] Luda Ko RN 01/17/2024 3:16 PM ORACLE BUSINESS INTELLIGENCE DEVELOPER - 01/17/2024 11:59 PM ORACLE BUSINESS INTELLIGENCE DEVELOPER Hospital Encounter [address] [address] 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 (CMS/HCC) (HCC); Chronic systolic congestive heart failure (CMS/HCC) (HCC); Chronic systolic heart failure (CMS/HCC) (HCC) Discharge Disposition: Discharge to home or self care 01/17/2024 3:15 PM ORACLE BUSINESS INTELLIGENCE DEVELOPER Lab [facility] Medical Group Outpatient Lab at [address] [phone] Hyperlipidemia (Primary Dx); Essential hypertension 01/17/2024 3:00 PM ORACLE BUSINESS INTELLIGENCE DEVELOPER Office Visit [facility] Medical Group Convenient Care at [address] [phone] Nandini Peterson NP Acute otitis externa of right ear, unspecified type (Primary Dx) 01/10/2024 Telephone [facility] [address] [facility] [address] [phone] [place] [address] Luda Ko RN 01/09/2024 9:30 AM ORACLE BUSINESS INTELLIGENCE DEVELOPER Office Visit [facility] Cardiology [address] [place] [address] [place] [address] Chronic systolic heart failure (CMS/HCC) (HCC) (Primary Dx); Ischemic cardiomyopathy; Mixed hyperlipidemia; Chronic systolic congestive heart failure (CMS/HCC) (HCC) from Last 3 Months Allergies Active Allergy Reactions Criticality Noted Date Comments Penicillins Hives High Reaction: Hives, , Reaction: Hives, Medications aspirin 81 mg tablet take 1 tablet (81MG) by oral route every day 0 01/19/20 10 Active ergocalciferol (VITAMIN D) 50,000 unit capsuleIndicat ions:Vitamin D deficiency Take 1 capsule (50,000 Units total) by mouth once a week 8 capsule 05/18/19 22 Active blood-glucose meter,continuo us (Dexcom G6 Bottle Feeder) miscIndication s:Type 2 diabetes mellitus with complication, with long-term current use of insulin ([facility]) For daily glucose monitoring 1 each 07/07/19 22 Active blood-glucose sensor (Dexcom G6 Sensor) deviceIndicati ons:Type 2 diabetes mellitus with complication, with long-term current use of insulin ([facility]) For daily glucose monitoring 3 each 3 07/07/19 22 Active blood-glucose transmitter (Dexcom G6 Transmitter) deviceIndicati ons:Type 2 diabetes mellitus with complication, with long-term current use of insulin ([facility]) For daily glucose monitoring 1 each 07/07/19 Active insulin glargine (LANTUS) 100 unit/mL (3 mL) pen for injectionIndic ations:Type 2 diabetes mellitus with complication, with long-term current use of insulin ([facility]) Inject 40 Units under the skin nightly 100 mL 3 07/09/19 22 Active nitroglycerin (NITROSTAT) 0.4 mg SL tabletIndicati ons:Chest pressure PLACE 1 TABLET UNDER THE TOUNGE EVERY 5 MINUTES NEEDED FOR CHEST PAIN 100 tablet 3 09/18/19 22 Active atorvastatin (LIPITOR) 80 mg tablet Take 1 tablet (80 mg total) by mouth daily 90 tablet 3 07/06/19 24 Active isosorbide mononitrate ER (IMDUR) 120 mg 24 hr tablet Take 1 tablet (120 mg total) by mouth daily 90 tablet 3 08/07/19 24 Active eplerenone (INSPRA) 25 mg tablet Take 1 tablet (25 mg total) by mouth daily 90 tablet 08/21/19 24 Active ezetimibe (Zetia) 10 mg tablet Take 1 tablet (10 mg total) by mouth daily 30 tablet 08/21/19 24 2024 Active escitalopram (LEXAPRO) 20 mg tabletIndicati ons:Other mixed anxiety disorders Take 1 tablet (20 mg total) by mouth every morning 90 tablet 3 09/28/19 24 2024 Active sacubitriL-denice sartan (ENTRESTO) 97-103 mg tablet Take 1 tablet by mouth 2 (two) times a day 180 tablet 3 11/21/19 24 Active HumaLOG 100 unit/mL pen for injectionIndic ations:Type 2 diabetes mellitus with complication, with long-term current use of insulin ([facility]) INJECT UNDER THE SKIN THREE TIMES DAILY BEFORE MEALS DIRECTED WITH AN AVERAGE DAILY DOSE OF 75 UNITS DX E11.65, Z79.4 SLIDING SCALE FOR BLOOD SUGAR GREATER THAN 180 21 mL 11 12/20/19 24 Active allopurinoL (ZYLOPRIM) 100 mg tabletIndicati ons:Idiopathic chronic gout of multiple sites with tophus Take 5 tablets (500 mg total) by mouth every morning 450 tablet 3 12/25/19 24 2024 Active torsemide (DEMADEX) 20 mg tablet TAKE 2 TABLETS(40 MG) BY MOUTH TWICE DAILY 360 tablet 3 01/02/20 24 Active pen needle, diabetic 31 gauge x 5/16 needle Use to inject 1-4 times daily as directed. 300 each 4 01/05/20 24 Active levoFLOXacin (LEVAQUIN) 500 mg tabletIndicati ons:Other infective acute otitis externa of right ear Take 500 mg po once 1 tablet 01/25/20 24 Active metoprolol XL (TOPROL-XL) 25 mg extended release tablet Take 1 tablet (25 mg total) by mouth daily 90 tablet 3 02/14/19 25 Active clopidogreL (PLAVIX) 75 mg tablet Take 1 tablet (75 mg total) by mouth daily 90 tablet 3 02/25/19 25 Active levothyroxine (SYNTHROID) 100 mcg tablet Take 1 tablet (100 mcg total) by mouth patent attorney before breakfast 30 tablet 02/26/19 25 Active albuterol HFA (PROVENTIL HFA,VENTOLIN HFA,PROAIR HFA) 90 mcg/actuation inhalerIndicat ions:Bronchosp asm Prevention,Chr onic Obstructive Pulmonary Disease Inhale 2 puffs every 6 (six) hours as needed for wheezing 1 each 3 03/05/19 25 2025 Active busPIRone (BUSPAR) 5 mg tabletIndicati ons:Generalize d Anxiety Disorder Take 1 tablet (5 mg total) by mouth 2 (two) times a day 60 tablet 3 03/06/19 25 Active semaglutide (OZEMPIC) 0.25 mg or 0.5 mg (2 mg/3 mL) pen injector injectionIndic ations:type 2 diabetes mellitus Inject .25mg subcutaneous one day a week 3 mL 03/06/19 25 Active empagliflozin (Jardiance) 10 mg tablet Take 1 tablet (10 mg total) by mouth daily 30 tablet 3 04/01/19 25 Active LORazepam (ATIVAN) 0.5 mg tablet Take 1 tablet (0.5 mg total) by mouth 3 (three) times a day as needed for anxiety 10 tablet 03/14/19 23 Discontinued(R eorder) Jardiance 10 mg tablet TAKE 1 TABLET(10 MG) BY MOUTH DAILY 30 tablet 3 08/24/19 24 2024 Discontinued(R eorder) semaglutide (OZEMPIC) 0.25 mg or 0.5 mg (2 mg/3 mL) pen injector injectionIndic ations:type 2 diabetes mellitus Inject 0.38 mL (0.2533 mg total) under the skin once a week 3 mL 03/06/19 25 2024 Discontinued Active Problems Problem Noted Date Diagnosed Date CAD in inupiat artery 02/22/2024 Coronary artery disease of n ative artery of inupiat heart with stable angina pectoris 01/10/2024 Trigger thumb of right hand 10/20/2023 Digital mucous cyst of finger of right hand 08/08 Personal history of colonic polyps 06/19/2023 Peripheral vascular disease, unspecified 023 Non-seasonal allergic rhinitis due to pollen 07/2022 Encounter for Medicare annual wellness exam 11/06 Assessment & Plan (11/16/2022 3:30 PM CDT): A(n) yearly Medicare Annual Wellness Visit has been performed today. Abigail Trivedi is not up to date on screening tests. She is in need of Breast cancer screening, Colon cancer screening, and Diabetic kidney disease screening. She is not up to date on needed preventative vaccinations; She is in need of Tdap/Td, Influenza, Zoster, and Covid-19 (booster). We discussed healthy lifestyle habits, educational material has been given. Medications reviewed, changes documented as per the medical record and discussed with patient along with risks vs benefits. Return in 3 months Assessment & Plan (11/20/2021 3:22 PM CDT): A(n) yearly Medicare Annual Wellness Visit has been performed today. Abigail Trivedi is not up to date on screening tests. She is in need of Breast cancer screening and Colon cancer screening. She is not up to date on needed preventative vaccinations; She is in need of Covid-19 (booster). EKG today did not explicitly show atrial fibrillation or flutter; wearables are not medical-grade for diagnostic purposes, but are accurate enough that they could necessitate further work up Will need to check for sleep/pulm doctor, I believe there will be a couple in [place] or [place]; will have to find their names BP is controlled, has been as well Get back into nephology soon Renal function remains poor, but actually slightly better than previous Sodium is slightly elevated Anemia, vitamin D are improved Cholesterol panel shows control Vitamin D deficiency 05/19/2021 Chronic kidney disease (CKD), stage IV (severe) ([facility]) 09/18/2020 Overview (09/18/2020): continuing follow up with rn call center Assessment & Plan (03/06/2024 12:22 PM ORACLE BUSINESS INTELLIGENCE DEVELOPER): 03/05 BNP 1,014. Continue diuretics. Continue following with nephro Assessment & Plan (09/02/2021 1:20 PM CDT): Condition stable - continue follow up with nephrology. Encounter for screening colonoscopy 08/03/2020 Overview (08/03/2020): Added automatically from request for surgery [id number] Rash and nonspecific skin eruption 06/14/2020 Assessment & Plan (06/14/2020 1:50 PM CDT): Dermatitis vs folliculitis. Will start Kenelog ointment x 2 weeks. Also, will have a short course of antibiotic given likelihood of infection given the etiology Inflammatory polyarthropathy or polyarthritis ([facility]) 08/22/2019 Diabetic nephropathy associa sammie with type 2 diabetes mellitus 10/23/2018 Chronic eczematous otitis externa of both ears 0 05/14/2018 Assessment & Plan (05/12/2022 2:07 PM CDT): Start Cetirizine 10 mg daily Prescription medications sent to Pharmacy today: Lotrisone cream to outer portion of the ear canal bilaterally Avoid ear cleaning techniques Avoid water to ears Consider Bactroban ointment if no improvement at follow up Assessment & Plan (05/14/2018 1:50 PM CDT): Lotrisone to right ear twice daily for 10 days starting any time to left ear in one week Acute pansinusitis 05/04/2018 Otitis externa 04/02/2018 Assessment & Plan (02/05/2024 9:29 AM ORACLE BUSINESS INTELLIGENCE DEVELOPER): Continue Ciprodex drops 7 drops into the Right ear twice daily Start Levaquin daily after heart cath tomorrow, with a meal for 14 days Avoid ear cleaning techniques Avoid water to ears How to Use Ear Drops discussed and Handout provided Call for hearing test if hearing not improved in the next 2-3 weeks Assessment & Plan (05/14/2018 1:50 PM CDT): Finish off ear drops to left ear only Avoid water to both ears always Avoid all ear cleaning techniques Finish oral antibiotics Assessment & Plan (05/05/2018 4:43 PM CDT): Ciprofloxacin ear drop 5 drops followed by dexamethasone 5 drops into each ear, let sit for 10 minutes each time Avoid water to both ears Start Levaquin daily Assessment & Plan (05/04/2018 10:57 AM CDT): Bilateral ear pain. Left worse than the right. Ear canals are swollen shut. Patient reports that she cannot hear out of her left ear. Pain was so severe last night she wanted to go to the emergency room. This is a recurrent problem she was on azithromycin and ear drops about a month ago it only improved slightly and last night it rapidly worsened. Patient is diabetic and blood sugars have been in the 150. She has been taking indomethacin for pain but gets little relief from that. Will send her to ENT now. Assessment & Plan (04/02/2018 1:27 PM ORACLE BUSINESS INTELLIGENCE DEVELOPER): Also starting in right side. She is complaining of left sided sore throat and left sided neck pain with enlarged lymph nodes. She has a hx of inner ear infections and I cannot visualize the TM. With the swelling I think this is a external otitis media, however, will treat with z-ashleigh as well for possible OM. ciprodex drops to both ears. She has f/u scheduled next week with Dr. Cantu. Ischemic cardiomyopathy 01/03/2018 DAMI (obstructive sleep apnea) 11/16/2017 Assessment & Plan (11/07/2023 1:37 PM CDT): The patient has been successfully treated with CPAP at 15 cm water pressure in the past. Her CPAP unit malfunctioned in late August. I will order a new CPAP unit for her with all new supplies through [facility] home care services and she will follow up here in 2 months. She does understand that she may need a new diagnostic sleep study. Assessment & Plan (12/22/2017 9:25 PM ORACLE BUSINESS INTELLIGENCE DEVELOPER): Continue CPAP Assessment & Plan (11/16/2017 11:28 AM CDT): Cpap at bedside. Polyarthralgia 10/12/2017 Chronic renal insufficiency, stage III (moderate ) 05/08/2017 Assessment & Plan (03/07/2022 3:58 PM ORACLE BUSINESS INTELLIGENCE DEVELOPER): Condition stable - continue follow up with nephrology. Assessment & Plan (06/14/2020 1:49 PM CDT): Renal function has worsened some; managed by Dr. Andersen. I do of course urge adequate hydration, but we don't want to kick into fluid overload. For now, review salt intake and cut back (2500 mg per day as a limit) Essential hypertension 05/08/2017 Assessment & Plan (03/06/2024 12:07 PM ORACLE BUSINESS INTELLIGENCE DEVELOPER): BP stable. Continue inspra, metoprolol XL, nitrostat, entresto, demadex Assessment & Plan (10/20/2020 4:22 PM CDT): BP is running low Blood pressure on the low side today. Discussed carvedilol dosing. We will her check blood pressure before dosing, and hold carvedilol dose blood pressure is below 100/60. Continue Entresto. Incomplete tear of left rotator cuff 04/06/2017 Adhesive capsulitis of left shoulder associated with type 2 diabetes mellitus 03/31/2017 Chronic systolic congestive heart failure (CMS/H CC) 06/21/2016 Assessment & Plan (03/06/2024 12:12 PM ORACLE BUSINESS INTELLIGENCE DEVELOPER): -Continue aspirin, plavix (patient was asked to continue both prior to her planned procedure) with management outpatient per cardiology -resume Jardiance -GDMT: continue metop XL 25 mg daily, imdur 120 mg daily, high dose entresto BID -Diuretics: torsemide 40 BID Assessment & Plan (01/28/2019 9:43 AM ORACLE BUSINESS INTELLIGENCE DEVELOPER): TTE overall unchanged - holding torsemide with WILLIAN and euvolemic on exam - increase entresto to mid dose - continue coreg at reduced dose Weight up 2 pounds ( difficulty with fluid assessment related to morbid obesity ) Hyperlipidemia 03/11/2016 Assessment & Plan (03/06/2024 12:08 PM ORACLE BUSINESS INTELLIGENCE DEVELOPER): 02/17 LDL 129. Continue atorvastatin Cardiomyopathy, nonischemic ([facility]) 03/11/2016 Assessment & Plan (02/10/2020 3:43 PM ORACLE BUSINESS INTELLIGENCE DEVELOPER): Complicated with CKD GFR was 22 in September/2019 stable Plan: Continue follow up with cardiology and nephrology Dyspnea on exertion 02/09/2016 Overview (05/12/2016): Shortness of breath on exertion History of cardiac catheterization 12/18/2015 Overview (05/12/2016): S/P cardiac catheterization Presence of stent in coronary artery 12/18/2015 Overview (05/12/2016): History of heart artery stent Atherosclerosis of inupiat co ronary artery of inupiat heart with stable angina pectoris ([facility]) 10/21/2015 Overview (05/12/2016): Coronary atherosclerosis Assessment & Plan (03/06/2024 12:03 PM ORACLE BUSINESS INTELLIGENCE DEVELOPER): -Continue aspirin, plavix (patient was asked to continue both prior to her planned procedure) with management outpatient per cardiology -resume Jardiance -GDMT: continue metop XL 25 mg daily, imdur 120 mg daily, high dose entresto BID -Diuretics: torsemide 40 BID Assessment & Plan (11/20/2021 3:26 PM CDT): Brittanie pickett tells her she is in a-fib (twice in the past month) Assessment & Plan (01/28/2019 9:44 AM ORACLE BUSINESS INTELLIGENCE DEVELOPER): Continue aspirin 81 mg daily , carvedilol 12.5 mg bid and atorvastatin 80 mg daily Myocardial infarction 03/17/2015 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 No thoughts of self harm. Continue lexapro Assessment & Plan (10/20/2020 4:22 PM CDT): Lexapro 5 mg daily. This is the recommended starting dose for someone with renal failure. We will have to repeat EKG at follow-up. If she notes any palpitations, we will stop the medication. Gout 06/22/2013 Overview (09/08/2016): Gout Overview: Assessment & Plan (12/22/2017 8:11 PM ORACLE BUSINESS INTELLIGENCE DEVELOPER): Continue allopurinol Assessment & Plan (11/16/2017 11:29 AM CDT): Allopurinol. Type 2 diabetes mellitus wit h stage 4 chronic kidney disease, with long-term current use of insulin ([facility]) 06/22/2013 Overview (05/13/2016): DMII WO CMP NT ST UNCNTR Assessment & Plan (03/06/2024 12:10 PM ORACLE BUSINESS INTELLIGENCE DEVELOPER): Continue lispro, humalog, jardiance, lantus. Last A1c 7.6 02/2024. Assessment & Plan (12/04/2023 8:57 PM CDT): Prednisone x 5 days Maintain strict compliance with diuretic Doxy course sent as well Continue current regimen otherwise A1c today 7.7% I'd like to move the sliding scale up to total 80 units per day. Continue Lantus at 40 units Assessment & Plan (03/07/2022 3:57 PM ORACLE BUSINESS INTELLIGENCE DEVELOPER): Diagnosed 2010, and has been on insulin shortly after diagnosis. Control : in good control A1c 6.9% on 03/07/22 A1c 6.7% on 09/02/21 A1c 6.9% on 02/15/21 A1c 7.3% on 09/01/20 A1c 6.7% on 02/10/20 Kidney: CKD with GFR 20 on 05/26/21 Neuropathy : mild to mod symptoms. Plan: Continue diet plan. Continue lantus 18 Units/day Use Humalog insulin with meals between 20-22 Units based on carb intake. Monitor sugars 4 x per day use Dexcom. Patient encouraged to watch diet . Hypoglycemia symptoms and treatment reviewed with patient. Call if having low sugars. Ophthalmology exam on regular basis. Assessment & Plan (09/02/2021 1:21 PM CDT): Diagnosed 2010, and has been on insulin shortly after diagnosis. Control : in tight control, CGM data showed mild hypoglycemia early am. A1c 6.7% on 09/02/21 A1c 6.9% on 02/15/21 A1c 7.3% on 09/01/20 A1c 6.7% on 02/10/20 Kidney: CKD with GFR 20 on 05/26/21 Neuropathy : mild to mod symptoms. Plan: Continue diet plan. Decrease lantus 15 Units/day Use Humalog insulin with meals between 20-22 Units based on carb intake. Monitor sugars 4 x per day use Dexcom. Patient encouraged to watch diet . Hypoglycemia symptoms and treatment reviewed with patient. Call if having low sugars. Ophthalmology exam on regular basis. Assessment & Plan (03/04/2021 1:50 PM ORACLE BUSINESS INTELLIGENCE DEVELOPER): Diagnosed 2010, and has been on insulin shortly after diagnosis. Control : in good control- CGM data showed mild hypoglycemia early am. A1c 6.9% on 02/15/21 A1c 7.3% on 09/01/20 A1c 6.7% on 02/10/20 Kidney: CKD with GFR 23 on 02/15/21 Neuropathy : mild to mod symptoms. Plan: Continue diet plan. Decrease lantus 18 Units/day Use Humalog insulin with meals between 20-22 Units based on carb intake. Monitor sugars 4 x per day use Dexcom. Patient encouraged to watch diet . Hypoglycemia symptoms and treatment reviewed with patient. Call if having low sugars. Ophthalmology exam on regular basis. Assessment & Plan (09/01/2020 3:27 PM CDT): Diagnosed 2010, and has been on insulin shortly after diagnosis. Control : not at target- high sugars when on steroids. A1c 7.3% on 09/01/20 A1c 6.7% on 02/10/20 A1c 10.5% on 01/22/19. A1c 8.9 on 09/13/18 Kidney: CKD with GFR 26 on 06/09/20 Neuropathy : mild to mod symptoms. Plan: Continue diet plan. continue lantus 20 Units/day Use Humalog insulin with meals between 20-22 Units based on carb intake. Monitor sugars 4 x per day and bring records. Patient encouraged to watch diet . Hypoglycemia symptoms and treatment reviewed with patient. Call if having low sugars. Ophthalmology exam on regular basis. Assessment & Plan (06/14/2020 1:52 PM CDT): Continuing to follow up with Dr. Adhikari She is reminded she needs to get her yearly eye-exams Assessment & Plan (02/10/2020 3:40 PM ORACLE BUSINESS INTELLIGENCE DEVELOPER): Comments: Diagnosed 2010, and has been on insulin shortly after diagnosis. Control : improved control A1c 6.7% on 02/10/20 A1c 10.5% on 01/22/19. A1c 8.9 on 09/13/18 A1c was 8.9% on 09/07/17 A1c was 12.1% on 08/30/16. Kidney: CKD with GFR 22 on 09/30/19 Neuropathy : mild to mod symptoms. Plan: Continue diet plan. Can decrease lantus to 20 Units if she starts to have am sugars below 90. Use Humalog insulin with meals between 15-20 Units based on carb intake. Monitor sugars 3-4 x per day and bring records. Patient encouraged to watch diet . Hypoglycemia symptoms and treatment reviewed with patient. Call if having low sugars. Ophthalmology exam on regular basis. Assessment & Plan (01/28/2019 9:29 AM ORACLE BUSINESS INTELLIGENCE DEVELOPER): Last hemglobin a1 c 10.5 Currently blood sugars are controlled in hospital : [id number] Patient should follow up with PCP to follow up on elevated Hemoglobin a1c Continue 25 units of SQ lispro with meals and SSi Assessment & Plan (12/22/2017 9:22 PM ORACLE BUSINESS INTELLIGENCE DEVELOPER): fingersticks Home regimen lantus 36 U daily and lispro 45 U TID qAC, will reduce while inpatient and add sliding scale. Assessment & Plan (11/16/2017 11:27 AM CDT): Uncontrolled 2/2 non-compliance. On Lantus and SSI. A1c was last 8.6 in 09/2017. Assessment & Plan (09/08/2016 12:39 PM CDT): Diabetes is not controlled. She is going to continue lantus 10u at bedtime. She checks blood sugars twice daily and has lispro to take for readings over 200. Will refer to endocrinology. Class 3 severe obesity due t o excess calories with serious comorbidity and body mass index (BMI) of 50.0 to 59.9 in adult 06/22/2013 Overview (05/13/2016): MORBID OBESITY Assessment & Plan (03/06/2024 12:12 PM ORACLE BUSINESS INTELLIGENCE DEVELOPER): Educated about heart healthy diet, high protein low carb, and exercise Assessment & Plan (05/18/2023 3:20 PM CDT): BMI Follow-up includes: nutrition counseling, exercise counseling, and education provided. Assessment & Plan (05/21/2022 12:12 PM CDT): BMI Follow-up includes: nutrition counseling and exercise counseling. Assessment & Plan (03/01/2022 3:04 PM ORACLE BUSINESS INTELLIGENCE DEVELOPER): Healthy, low carbohydrate lifestyle and exercise for 150min/week recommended Assessment & Plan (02/22/2022 4:03 PM ORACLE BUSINESS INTELLIGENCE DEVELOPER): Healthy, low carbohydrate lifestyle and exercise for 150min/week recommended Assessment & Plan (11/20/2021 3:25 PM CDT): BMI Follow-up includes: nutrition counseling, exercise counseling and education provided. Assessment & Plan (05/19/2021 1:05 PM CDT): BMI Follow-up includes: nutrition counseling, exercise counseling and education provided. Assessment & Plan (06/14/2020 1:51 PM CDT): BMI Follow-up includes: nutrition counseling, exercise counseling and education provided. Assessment & Plan (01/28/2019 9:29 AM ORACLE BUSINESS INTELLIGENCE DEVELOPER): Weight loss advised. Assessment & Plan (11/16/2017 11:32 AM CDT): Would greatly benefit from weight loss. Abnormal mammogram 03/15/2011 Overview (05/13/2016): Abnormal finding on mammography Diastolic dysfunction 09/30/2008 Resolved Problems Problem Noted Date Diagnosed Date Resolved Date Hypotension due to drugs 03/01/202010/2020 Assessment & Plan (03/01/2020 1:37 PM ORACLE BUSINESS INTELLIGENCE DEVELOPER): BP improved some upon recheck Stay hydrated (within urologist recommendations). The urinalysis was unremarkable for dehydration, but there may be a touch of low volume going Cutting Coreg to 1/2 tab twice daily, and holding dose if BP below 100/60 Continuing diuretic and Entresto for now WILLIAN (acute kidney injury) 01/28/2019 Assessment & Plan (01/28/2019 9:30 AM ORACLE BUSINESS INTELLIGENCE DEVELOPER): Admitted with WILLIAN with creatine bumped after LHC and taking extra diuretic after elevated LVEDP Admitted with creatine 2.59 - currently have been holding diuretics Improved creatine today of 1.63 suspect will resume diuretics today and continue to monitor as outpatient Chest pain 11/16/2017 04/02/2018 Assessment & Plan (12/22/2017 9:23 PM ORACLE BUSINESS INTELLIGENCE DEVELOPER): S/p LHC today showing moderate LAD disease with ISR of prior stent, iFR performed and was 0.90. - continue aspirin, clopidogrel - continue atorvastatin - continue imdur, NTG prn - continue carvedilol - consider up-titrating imdur or carvedilol Assessment & Plan (11/16/2017 11:23 AM CDT): Need to r/o MT vs ACS. H/o stenting x3 in 2016. Troponin negative x3. EKG as noted above. Cardiology has been consulted for which we appreciate their evaluation and recommendations. Telemetry monitoring. Prn nitro. Right shoulder pain 05/25/2017 04/02/19 19 Overview (05/25/2017): gout flare Bronchitis 01/03/2017 04/02/2018 Assessment & Plan (11/16/2017 11:25 AM CDT): Per pt rapid strep negative in ER last evening. On IV Levaquin. Assessment & Plan (01/03/2017 11:05 AM ORACLE BUSINESS INTELLIGENCE DEVELOPER): Discussed with patient that this is likely viral bronchitis and may last 5-6 weeks. I do not believe that she needs any further antibiotics at this time. She has been on to use the packs a Medrol Dosepak and Levaquin. I will go ahead and try a prednisone taper today. She has a follow-up with her rope twisting machine operator schedule January 13. She also has a history of congestive heart failure with an echo showing 20-30% function in August 2016. She has had a 4 lb weight gain since December 16. I recommended that she call her medical records manager and also discussed her symptoms. Her lung sounds were clear today I do not believe that she has an acute congestive heart failure exacerbation Need for immunization against influenza 12/06/2016 04/02/2018 Edema of foot 02/09/2016 09/08/2016 Overview (05/12/2016): Pedal edema Shortness of breath 09/05/2014 09/08/19 18 Edema 09/05/2014 04/02/2018 Diabetes mellitus 09/05/2014 02/10/2020 Palpitations 03/07/2014 04/02/2018 Hypertension 06/22/2013 11/15/2022 Overview (08/10/2017): BENIGN HYPERTENSION Assessment & Plan (05/21/2022 12:13 PM CDT): Continuing Entresto, torsemide Assessment & Plan (05/19/2021 1:05 PM CDT): Labs for next visit ordered. Blood pressure is controlled, encouraged in current efforts with exercise Needs to schedule eye exam this year. Continuing follow-up with strong nitric operator, so continuing Jardiance and insulin Continues follow-up with rn call center Assessment & Plan (03/04/2021 1:51 PM ORACLE BUSINESS INTELLIGENCE DEVELOPER): Controlled with medication - follow up with nephrology and PCP Assessment & Plan (12/22/2017 9:24 PM ORACLE BUSINESS INTELLIGENCE DEVELOPER): Continue carvedilol, entreso, imdur, HCTZ Patient also thinks she may be on eplerenone but not sure of dose and not on med list, will defer for now Assessment & Plan (11/16/2017 11:29 AM CDT): Stable. Not on any anti-hypertensive's. Pure hypercholesterolemia 06/22/2013 Overview (05/13/2016): PURE HYPERCHOLESTEROLEM CHF (congestive heart failure) ([facility]) 06/22/2013 04/02/2018 Overview (09/08/2016): CHF NOS Assessment & Plan (12/22/2017 9:25 PM ORACLE BUSINESS INTELLIGENCE DEVELOPER): Continue entresto, carvedilol Continue torsemide, monitor renal function post cath Assessment & Plan (11/16/2017 11:31 AM CDT): On ASA, plavix, statin, BB and Imdur. Last echo 09/13/2017 reported LA is normal. Normal RV cavity size and function. LV cavity size is moderately dilated. Eccentric LV hypertrophy and mild LVD; EF=51% anteroapical akinesis. Normal Inferior vena cava. Normal aorta. No change from last study. Assessment & Plan (09/08/2016 12:38 PM CDT): She hasn't been on lasix for the last couple of days because of her renal function. She has a hand written order to repeat renal function panel today. She has gained about 4 pounds since discharge according to our scale. She has a scale at home and is aware to keep track of daily weights. Immunizations Immunization Administration Dates Next Due Influenza, Quadrivalent, Cassidy l Culture-based MDCK, Preservative Free, Antibiotic Free, Intramuscular 01/01/2019 Influenza, Quadrivalent, Spl it, Intramuscular 10/28/2017,11/07/2015,12/25/2014 Influenza, Quadrivalent, Spl it, Preservative Free, Intramuscular 02/07/2023,11/16/2021,11/12/2020,12/04,11/14/2015 Influenza, Split 01/18/2010 Influenza, Trivalent, High D ose, Split, Preservative Free, Intramuscular 02/23/2024 Influenza, Trivalent, Preser vative Free, Intramuscular 12/06/2016,09/28/2012,12/13/2011 Influenza, Unspecified 02/16/2023(Deferr ed: Patient Refused),02/06/2022(Deferred: Patient Refused),12/27/2019,10/28/2017, 017,10/30/2010 Franco (J&J) SARS-CoV-2 Vaccination 05/08/2020 Moderna SARS-CoV-2 Monovalen t Vaccination (12+ YRS) 01/14/2021 Pneumococcal Conjugate Pcv20 11/16/2021 Pneumococcal Polysaccharide PPV23 01/18/2010 Tdap 01/18/2006 Social History Tobacco Use Types Packs/Day Years Used Date Smoking Tobacco: Never Smokeless Tobacco: Never Tobacco Cessation:Counseling Given: Not Answered Alcohol Use Standard Drinks/Week Comments No 0 (1 standard drink = 0.6 oz pur e alcohol) [facility] Utilities Answer Date Recorded In the [...] any time in the past 12 m [facility], were you homeless or living in a residential (including now)? No 02/27/2024 Personal Safety Answer Date Recorded Have you ever been in or are you currently in a harmful physical or emotional relationship or is someone making you feel afraid or unsafe? Denies 02/22/2024 Comments No Sex and Gender Information Value Date Recorded Sex Assigned at Not on file Legal Sex Female 1:35 AM ORACLE BUSINESS INTELLIGENCE DEVELOPER Gender Identity Not on file Sexual Orientation Not on file Last Filed Vital Signs Vital Sign Reading Time Taken Comments Blood Pressure 135/69 04/01/2024 4:15 PM ORACLE BUSINESS INTELLIGENCE DEVELOPER Pulse 125 04/01/2024 4:56 PM ORACLE BUSINESS INTELLIGENCE DEVELOPER Temperature 36.4 C (97.5 F) 03/06/2024 2:18 PM ORACLE BUSINESS INTELLIGENCE DEVELOPER Respiratory Rate 26 04/01/2024 4:15 PM ORACLE BUSINESS INTELLIGENCE DEVELOPER Oxygen Saturation 96% 04/01/2024 4:5 6 PM ORACLE BUSINESS INTELLIGENCE DEVELOPER On 2 L of oxygen Inhaled Oxygen Concentration - - Weight 133.8 kg (295 lb) 04/01/2024 4:1 5 PM ORACLE BUSINESS INTELLIGENCE DEVELOPER Height 157.5 cm (5' 2 ) 04/01/2024 4:15 PM ORACLE BUSINESS INTELLIGENCE DEVELOPER Body Mass Index 53.96 04/01/2024 4:15 PM ORACLE BUSINESS INTELLIGENCE DEVELOPER Plan of Treatment Not on file Goals Goal Patient Goal Type Associated Problems Recent Progress Patient-Stated? Author REYES General Goal - Patient schedules and keeps appointments with all recommended providers [facility] Care Management On track(2024 12:49 PM ORACLE BUSINESS INTELLIGENCE DEVELOPER) Aline Bales RN Note: Problem: Potential for [...] [facility]CO Care Management On track(2024 12:49 PM ORACLE BUSINESS INTELLIGENCE DEVELOPER) Aline Bales RN Note: Problem: Knowledge deficit [...] take, when to call CM or provider. Medical Devices Implanted Type Area Medical Charge Entry Specialist Device Identifier Shelf Expiration Date Model / Serial / Lot Stent Stent Left: Arterial Medtronic PROMUS / / [employer] Stent Coronary De Rx Cocr Ors Msn 3.5x13mm [id number] - [id number] - [id number] Implanted:Qty : 1 on 02/23/2024 by Davi Carvajal MD at [facility] Stent Left: Anterior Descending Cornary Artery [employer] 07/15/2025 [id number] / [id number] / [id number] Procedures Procedure Name Priority Date/Time Associated Diagnosis Comments EGFR Routine 03/21/2024 1:02 PM ORACLE BUSINESS INTELLIGENCE DEVELOPER Chronic systolic congestive heart failure (CMS/HCC) (HCC) BASIC METABOLIC PANEL Routine 03/21/2024 1:02 PM ORACLE BUSINESS INTELLIGENCE DEVELOPER Chronic systolic congestive heart failure (CMS/HCC) (HCC) PRO B-TYPE NATRIURETIC PEPTIDE Routine 03/21/2024 1:02 PM ORACLE BUSINESS INTELLIGENCE DEVELOPER Chronic systolic congestive heart failure (CMS/HCC) (HCC) EGFR Routine 03/05/2024 11:01 AM ORACLE BUSINESS INTELLIGENCE DEVELOPER Coronary artery disease involving inupiat coronary artery of inupiat heart without angina pectoris Shortness of breath DIFFERENTIAL AUTO Routine 03/05/2024 11:01 AM ORACLE BUSINESS INTELLIGENCE DEVELOPER Coronary artery disease involving inupiat coronary artery of inupiat heart without angina pectoris Shortness of breath BASIC METABOLIC PANEL Routine 03/05/2024 11:01 AM ORACLE BUSINESS INTELLIGENCE DEVELOPER Coronary artery disease involving inupiat coronary artery of inupiat heart without angina pectoris Shortness of breath CBC WITH AUTO DIFFERENTIAL Routine 03/05/2024 11:01 AM ORACLE BUSINESS INTELLIGENCE DEVELOPER Coronary artery disease involving inupiat coronary artery of inupiat heart without angina pectoris Shortness of breath PRO B-TYPE NATRIURETIC PEPTIDE Routine 03/05/2024 11:01 AM ORACLE BUSINESS INTELLIGENCE DEVELOPER Coronary artery disease involving inupiat coronary artery of inupiat heart without angina pectoris Shortness of breath EGFR Routine 02/26/2024 11:48 AM ORACLE BUSINESS INTELLIGENCE DEVELOPER BASIC METABOLIC PANEL Routine 02/26/2024 11:48 AM ORACLE BUSINESS INTELLIGENCE DEVELOPER POCT GLUCOSE DEVICE Routine 02/26/2024 11:05 AM ORACLE BUSINESS INTELLIGENCE DEVELOPER POCT GLUCOSE DEVICE Routine 02/26/2024 7 :54 AM ORACLE BUSINESS INTELLIGENCE DEVELOPER POCT GLUCOSE DEVICE Routine 02/25/2024 8 :40 PM ORACLE BUSINESS INTELLIGENCE DEVELOPER EGFR Routine 02/25/2024 8:20 PM ORACLE BUSINESS INTELLIGENCE DEVELOPER DIFFERENTIAL AUTO Routine 02/25/2024 8:2 0 PM ORACLE BUSINESS INTELLIGENCE DEVELOPER BASIC METABOLIC PANEL Routine 02/25/2024 8:20 PM ORACLE BUSINESS INTELLIGENCE DEVELOPER CBC WITH AUTO DIFFERENTIAL Routine 02/25/2024 8:20 PM ORACLE BUSINESS INTELLIGENCE DEVELOPER POCT GLUCOSE DEVICE Routine 02/25/2024 4 :16 PM ORACLE BUSINESS INTELLIGENCE DEVELOPER POCT GLUCOSE DEVICE Routine 02/25/2024 12:00 PM ORACLE BUSINESS INTELLIGENCE DEVELOPER POCT GLUCOSE DEVICE Routine 02/25/2024 7 :44 AM ORACLE BUSINESS INTELLIGENCE DEVELOPER EGFR Routine 2024 8:57 PM ORACLE BUSINESS INTELLIGENCE DEVELOPER DIFFERENTIAL AUTO Routine 2024 8:5 7 PM ORACLE BUSINESS INTELLIGENCE DEVELOPER BASIC METABOLIC PANEL Routine 2024 8:57 PM ORACLE BUSINESS INTELLIGENCE DEVELOPER CBC WITH AUTO DIFFERENTIAL Routine 2024 8:57 PM ORACLE BUSINESS INTELLIGENCE DEVELOPER POCT GLUCOSE DEVICE Routine 2024 8 :50 PM ORACLE BUSINESS INTELLIGENCE DEVELOPER POCT GLUCOSE DEVICE Routine 2024 4 :23 PM ORACLE BUSINESS INTELLIGENCE DEVELOPER POCT GLUCOSE DEVICE Routine 2024 11:49 AM ORACLE BUSINESS INTELLIGENCE DEVELOPER POCT GLUCOSE DEVICE Routine 2024 8 :09 AM ORACLE BUSINESS INTELLIGENCE DEVELOPER EGFR Routine 02/23/2024 9:16 PM ORACLE BUSINESS INTELLIGENCE DEVELOPER BASIC METABOLIC PANEL Routine 02/23/2024 9:16 PM ORACLE BUSINESS INTELLIGENCE DEVELOPER POCT GLUCOSE DEVICE Routine 02/23/2024 8 :04 PM ORACLE BUSINESS INTELLIGENCE DEVELOPER DIFFERENTIAL AUTO Routine 02/23/2024 6:3 0 PM ORACLE BUSINESS INTELLIGENCE DEVELOPER CBC WITH AUTO DIFFERENTIAL Routine 02/23/2024 6:30 PM ORACLE BUSINESS INTELLIGENCE DEVELOPER POCT GLUCOSE DEVICE Routine 02/23/2024 4 :03 PM ORACLE BUSINESS INTELLIGENCE DEVELOPER ATHERECTOMY/LEXIE MAJOR CORONARY Routine 02/23/2024 3:20 PM ORACLE BUSINESS INTELLIGENCE DEVELOPER 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) POCT ACTIVATED CLOTTING TIME, LOW RANGE Routine 02/23/2024 3:15 PM ORACLE BUSINESS INTELLIGENCE DEVELOPER POCT ACTIVATED CLOTTING TIME, LOW RANGE Routine 02/23/2024 2:01 PM ORACLE BUSINESS INTELLIGENCE DEVELOPER POCT ACTIVATED CLOTTING TIME, LOW RANGE Routine 02/23/2024 1:43 PM ORACLE BUSINESS INTELLIGENCE DEVELOPER POCT GLUCOSE DEVICE Routine 02/23/2024 10:15 AM ORACLE BUSINESS INTELLIGENCE DEVELOPER POCT GLUCOSE DEVICE Routine 02/23/2024 8 :47 AM ORACLE BUSINESS INTELLIGENCE DEVELOPER TRANSTHORACIC ECHO (TTE) COMPLETE W DOPPLER/CF W CONTRAST Routine 02/23/2024 8:43 AM ORACLE BUSINESS INTELLIGENCE DEVELOPER TROPONIN I HIGH-SENSITIVITY STAT 02/22/2024 10:46 PM ORACLE BUSINESS INTELLIGENCE DEVELOPER XR CHEST 1 VIEW IP Routine 02/22/2024 9:35 PM ORACLE BUSINESS INTELLIGENCE DEVELOPER POCT GLUCOSE DEVICE Routine 02/22/2024 9 :11 PM ORACLE BUSINESS INTELLIGENCE DEVELOPER VITAMIN B12 STAT 02/22/2024 8:42 PM ORACLE BUSINESS INTELLIGENCE DEVELOPER EGFR STAT 02/22/2024 8:42 PM ORACLE BUSINESS INTELLIGENCE DEVELOPER T4, FREE STAT 02/22/2024 8:42 PM ORACLE BUSINESS INTELLIGENCE DEVELOPER DIFFERENTIAL AUTO STAT 02/22/2024 8:4 2 PM ORACLE BUSINESS INTELLIGENCE DEVELOPER THYROID FUNCTION CASCADE STAT 02/22/2024 8:42 PM ORACLE BUSINESS INTELLIGENCE DEVELOPER PHOSPHORUS STAT 02/22/2024 8:42 PM ORACLE BUSINESS INTELLIGENCE DEVELOPER MAGNESIUM STAT 02/22/2024 8:42 PM ORACLE BUSINESS INTELLIGENCE DEVELOPER PRO B-TYPE NATRIURETIC PEPTIDE STAT 02/22/2024 8:42 PM ORACLE BUSINESS INTELLIGENCE DEVELOPER TROPONIN I HIGH-SENSITIVITY STAT 02/22/2024 8:42 PM ORACLE BUSINESS INTELLIGENCE DEVELOPER TYPE AND SCREEN STAT 02/22/2024 8:42 PM ORACLE BUSINESS INTELLIGENCE DEVELOPER APTT STAT 02/22/2024 8:42 PM ORACLE BUSINESS INTELLIGENCE DEVELOPER PROTIME-INR STAT 02/22/2024 8:42 PM ORACLE BUSINESS INTELLIGENCE DEVELOPER COMPREHENSIVE METABOLIC PANEL STAT 02/22/2024 8:42 PM ORACLE BUSINESS INTELLIGENCE DEVELOPER CBC WITH AUTO DIFFERENTIAL STAT 02/22/2024 8:42 PM ORACLE BUSINESS INTELLIGENCE DEVELOPER RESPIRATORY PATHOGEN PANEL Routine 02/22/2024 8:42 PM ORACLE BUSINESS INTELLIGENCE DEVELOPER EGFR Routine 02/13/2024 9:23 AM ORACLE BUSINESS INTELLIGENCE DEVELOPER Type 2 diabetes mellitus with stage 4 chronic kidney disease, with long-term current use of insulin (HCC) Essential hypertension EGFR Routine 02/13/2024 9:23 AM ORACLE BUSINESS INTELLIGENCE DEVELOPER Chronic systolic congestive heart failure (CMS/HCC) (HCC) 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 (CMS/HCC) (HCC) DIFFERENTIAL AUTO Routine 02/13/2024 9:2 3 AM ORACLE BUSINESS INTELLIGENCE DEVELOPER Chronic systolic congestive heart failure (CMS/HCC) (HCC) 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 (CMS/HCC) (HCC) DIFFERENTIAL AUTO Routine 02/13/2024 9:2 3 AM ORACLE BUSINESS INTELLIGENCE DEVELOPER Type 2 diabetes mellitus with stage 4 chronic kidney disease, with long-term current use of insulin (HCC) Essential hypertension CBC WITH AUTO DIFFERENTIAL Routine 02/13/2024 9:23 AM ORACLE BUSINESS INTELLIGENCE DEVELOPER Chronic systolic congestive heart failure (CMS/HCC) (HCC) 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 (CMS/HCC) (HCC) BASIC METABOLIC PANEL Routine 02/13/2024 9:23 AM ORACLE BUSINESS INTELLIGENCE DEVELOPER Chronic systolic congestive heart failure (CMS/HCC) (HCC) 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 (CMS/HCC) (HCC) VITAMIN D 25 HYDROXY Routine 02/13/2024 9:23 AM ORACLE BUSINESS INTELLIGENCE DEVELOPER Vitamin D deficiency LIPID PANEL Routine 02/13/2024 9:23 AM ORACLE BUSINESS INTELLIGENCE DEVELOPER Type 2 diabetes mellitus with stage 4 chronic kidney disease, with long-term current use of insulin (CMS/HCC) (HCC) Mixed hyperlipidemia COMPREHENSIVE METABOLIC PANEL Routine 02/13/2024 9:23 AM ORACLE BUSINESS INTELLIGENCE DEVELOPER Type 2 diabetes mellitus with stage 4 chronic kidney disease, with long-term current use of insulin (CMS/HCC) (HCC) Essential hypertension CBC WITH AUTO DIFFERENTIAL Routine 02/13/2024 9:23 AM ORACLE BUSINESS INTELLIGENCE DEVELOPER Type 2 diabetes mellitus with stage 4 chronic kidney disease, with long-term current use of insulin (CMS/HCC) (HCC) Essential hypertension HEMOGLOBIN A1C Routine 02/13/2024 9:23 AM [employer]ACLE BUSINESS INTELLIGENCE DEVELOPER Type 2 diabetes mellitus with stage 4 chronic kidney disease, with long-term current use of insulin (CMS/HCC) (HCC) LEFT HEART CATHETERIZATION WITH CORONARY ANGIOGRAPHY AND WITH AND WITHOUT LEFT VENTRICULOGRAM Routine 02/06/2024 9:20 AM ORACLE BUSINESS INTELLIGENCE DEVELOPER 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 (CMS/HCC) (HCC) Chronic systolic congestive heart failure (CMS/HCC) (HCC) POCT ACTIVATED CLOTTING TIME, LOW RANGE Routine 02/06/2024 9:18 AM [employer]ACLE BUSINESS INTELLIGENCE DEVELOPER POCT GLUCOSE DEVICE Routine 02/06/2024 7 :40 AM [employer]ACLE BUSINESS INTELLIGENCE DEVELOPER ECG 12-LEAD Routine 02/06/2024 7:14 AM ORACLE BUSINESS INTELLIGENCE DEVELOPER EGFR STAT 02/06/2024 6:50 AM ORACLE BUSINESS INTELLIGENCE DEVELOPER BASIC METABOLIC PANEL STAT 02/06/2024 6:50 AM ORACLE BUSINESS INTELLIGENCE DEVELOPER EGFR Routine 02/01/2024 12:36 PM ORACLE BUSINESS INTELLIGENCE DEVELOPER 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 (CMS/HCC) (HCC) Chronic systolic congestive heart failure (CMS/HCC) (HCC) DIFFERENTIAL AUTO Routine 02/01/2024 12:36 PM ORACLE BUSINESS INTELLIGENCE DEVELOPER 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 (CMS/HCC) (HCC) Chronic systolic congestive heart failure (CMS/HCC) (HCC) BASIC METABOLIC PANEL Routine 02/01/2024 12:36 PM ORACLE BUSINESS INTELLIGENCE DEVELOPER 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 (CMS/HCC) (HCC) Chronic systolic congestive heart failure (CMS/HCC) (HCC) CBC WITH AUTO DIFFERENTIAL Routine 02/01/2024 12:36 PM ORACLE BUSINESS INTELLIGENCE DEVELOPER 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 (CMS/HCC) (HCC) Chronic systolic congestive heart failure (CMS/HCC) (HCC) POC INFLUENZA A/B, COVID-19 ANTIGEN Routine 01/25/2024 4:17 PM [employer]ACLE BUSINESS INTELLIGENCE DEVELOPER Cough, unspecified type EGFR Routine 01/17/2024 3:16 PM ORACLE BUSINESS INTELLIGENCE DEVELOPER 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 (CMS/HCC) (HCC) Chronic systolic congestive heart failure (CMS/HCC) (HCC) DIFFERENTIAL AUTO Routine 01/17/2024 3:1 6 PM [employer]ACLE BUSINESS INTELLIGENCE DEVELOPER 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 (CMS/HCC) (HCC) Chronic systolic congestive heart failure (CMS/HCC) (HCC) PRO B-TYPE NATRIURETIC PEPTIDE Routine 01/17/2024 3:16 PM [employer]ACLE BUSINESS INTELLIGENCE DEVELOPER Chronic systolic heart failure (CMS/HCC) (HCC) BASIC METABOLIC PANEL Routine 01/17/2024 3:16 PM ORACLE BUSINESS INTELLIGENCE DEVELOPER 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 (CMS/HCC) (HCC) Chronic systolic congestive heart failure (CMS/HCC) (HCC) CBC WITH AUTO DIFFERENTIAL Routine 01/17/2024 3:16 PM ORACLE BUSINESS INTELLIGENCE DEVELOPER 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 (CMS/HCC) (HCC) Chronic systolic congestive heart failure (CMS/HCC) (HCC) ALBUMIN CREATININE RATIO, URINE Routine 05/10/2023 11:04 AM CDT Type 2 diabetes mellitus with hyperlipidemia (HCC) HM DIABETES EYE EXAM Routine 09/15/2021 DEXA AXIAL SKELETON BONE DENSITY 1 OR MORE SITES Schedule Routine, Read Routine (OP Routine) 06/29/2020 9:15 AM CDT Screening for osteoporosis SCREENING MAMMOGRAM BILATERAL W WES Schedule Routine, Read Routine (OP Routine) 06/29/2020 9:05 AM CDT Encounter for screening mammogram for malignant neoplasm of breast PAP ONLY Routine 05/06/2020 2:54 PM CDT HEPATITIS PANEL, ACUTE Routine 12/06/2019 12:19 PM CDT Right wrist pain HM COLONOSCOPY Routine 03/03/2010 from Last 3 Months or Most Recently Relevant to Health Maintenance Results * (ABNORMAL) eGFR (03/21/2024 1:02 PM ORACLE BUSINESS INTELLIGENCE DEVELOPER) eGFR 34(L) >=60 mL/min/1. 73 m2 Comment: Interpretive Data Reference Interval Normal >/= 90 mL/min/1.73m2 Mildly decreased* 60 - 89 mL/min/1.73m2 Mildly to moderately decreased 45 - 59 mL/min/1.73m2 Moderately to severely decreased 30 - 44 mL/min/1.73m2 Severely decreased 15 - 29 mL/min/1.73m2 Kidney Failure < 15 mL/min/1.73m2 *Relative to young adult level Estimated glomerular filtration rate is determined by the 2020 CKD-EPI equation recommended by the National Kidney Foundation (A Unifying Approach to GFR Estimation: Recommendations of the NKF-ASK Task Force on Reassessing the Inclusion of Race in Diagnosing Kidney Disease, JASN 2020). The CKD-EPI equation should not be used for patients with unstable renal function and has not been validated in children and those over 70. Current interpretive data was last reviewed 2020. Blood 03/21/2024 1:02 PM ORACLE BUSINESS INTELLIGENCE DEVELOPER 03/21/2024 3:50 PM ORACLE BUSINESS INTELLIGENCE DEVELOPER us Aiyana Baldwin NP LAB BLOOD ORDERABLES Final Result [facility] [employer] [facility] Department [place] [address] * (ABNORMAL) Pro B-type natriuretic peptide (03/21/2024 1:02 PM ORACLE BUSINESS INTELLIGENCE DEVELOPER) NT-proBNP 2,244(H) <=300 pg/mL Comment: Interpretive Comments: A. Dyspnea in Acute Care Setting All Ages: < 300 pg/ml, acute heart failure unlikely. < 50 yrs: 300 - 450 pg/ml, further investigation warranted. > 450 pg/ml, acute heart failure likely. 50 - 74 yrs: 300 - 900 pg/ml, further investigation warranted. > 900 pg/ml, acute heart failure likely . > or = 75 yrs: 450 - 1800 pg/ml, further investigation warranted. > 1800 pg/ml, acute heart failure likely. B. Non-acute Setting < 75 yrs < 125 pg/ml, rules out heart failure. > or = 125 pg/ml, further investigation warranted. > or = 75 yrs < 450 pg/ml, rules out heart failure. > or = 450 pg/ml, further investigation warranted. - Knowledge of each individual patient's NT-proBNP range may be more useful than using similar cut-points for every patient. Please note that marked elevations in NT-proBNP levels may be observed in state other than Left Ventricular Congestive Failure, including: acute coronary syndromes, right heart strain/failure (including pulmonary embolism and cor pulmonale), critical illness, renal failure, as well as advanced age. - References: 1. Hailee PINO et.al. Eur Heart J. 2006:27:330-337. 2. Etelvina RW, Flaherty AM. J. AM Vinicio Cardiol: Cardiovasc Imag. 2009;2: 216- 225. Interpretive Data Last Revised Date: 2017. Blood 03/21/2024 1:02 PM ORACLE BUSINESS INTELLIGENCE DEVELOPER 03/21/2024 3:50 PM ORACLE BUSINESS INTELLIGENCE DEVELOPER Aiyana Baldwin NP LAB BLOOD ORDERABLES Final Result [facility] Department [place] [address] * (ABNORMAL) Basic metabolic panel (03/21/2024 1:02 PM ORACLE BUSINESS INTELLIGENCE DEVELOPER) Sodium 144 135 - 145 mmol/L Potassium, pl 3.8 3.3 - 4.9 mmol/L [facility] ([place]) Chloride 101 97 - 110 mmol/L [facility] ([place]) CO2 29 22 - 32 mmol/L [facility] ([place]) Anion gap 14 2 - 15 mmol/L [facility] BUN 33(H) 6 - 25 mg/dL [facility] Creatinine 1.64(H) 0.60 - 1.10 mg/dL [facility] ([place]) Glucose 131 70 - 199 mg/dL [facility] ([place]) Comment: Interpretive Data Fasting glucose >/= 126 mg/dl is diagnostic for diabetes. Fasting is defined as no caloric intake for at least 8 hours. Fasting glucose between 100 mg/dl to 125 mg/dl is diagnostic of prediabetes. In a patient with classic symptoms of hyperglycemia or hyperglycemic crisis, a random glucose >/= 200 mg/dl is diagnostic for diabetes. In the absence of unequivocal hyperglycemia, results should be confirmed by repeat testing. The classification and Diagnosis of Diabetes Diabetes Care 202; 46: S19-S40. Current interpretive data was last revised 2022. Calcium 10.2 8.5 - 10.3 mg/dL [facility] ([place]) Blood 03/21/2024 1:02 PM ORACLE BUSINESS INTELLIGENCE DEVELOPER 03/21/2024 3:50 PM ORACLE BUSINESS INTELLIGENCE DEVELOPER Aiyana Baldwin NP LAB BLOOD ORDERABLES Final Result [facility] ([place]) 1 [facility] Department [place] [address] * (ABNORMAL) eGFR (03/05/2024 11:01 AM ORACLE BUSINESS INTELLIGENCE DEVELOPER) eGFR 29(L) >=60 mL/min/1. 73 m2 Comment: Interpretive Data Reference Interval Normal >/= 90 mL/min/1.73m2 Mildly decreased* 60 - 89 mL/min/1.73m2 Mildly to moderately decreased 45 - 59 mL/min/1.73m2 Moderately to severely decreased 30 - 44 mL/min/1.73m2 Severely decreased 15 - 29 mL/min/1.73m2 Kidney Failure < 15 mL/min/1.73m2 *Relative to young adult level Estimated glomerular filtration rate is determined by the 2020 CKD-EPI equation recommended by the National Kidney Foundation (A Unifying Approach to GFR Estimation: Recommendations of the NKF-ASK Task Force on Reassessing the Inclusion of Race in Diagnosing Kidney Disease, JASN 2020). The CKD-EPI equation should not be used for patients with unstable renal function and has not been validated in children and those over 70. Current interpretive data was last reviewed 2020. Blood 03/05/2024 11:0 1 AM ORACLE BUSINESS INTELLIGENCE DEVELOPER 03/05/2024 11:52 AM ORACLE BUSINESS INTELLIGENCE DEVELOPER Aiyana Baldwin CORONER TECHNICIAN LAB BLOOD ORDERABLES Final Result [facility] Department [place] [address] * (ABNORMAL) Differential, auto (03/05/2024 11:01 AM ORACLE BUSINESS INTELLIGENCE DEVELOPER) Neutrophil abs 7.9(H) 1.5 - 6.5 K/cumm Imm gran abs 0.1 0.0 - 0.1 K/cumm [facility] Lymphocyte abs 1.1 0.8 - 3.3 K/cumm [facility] Monocyte abs 0.7 0.2 - 0.8 K/cumm [facility] Eosinophil abs 0.3 0.0 - 0.5 K/cumm [facility] Basophil abs 0.1 0.0 - 0.1 K/cumm [facility] Neutrophil pct 78.8 % [facility] Comment: Interpretive Data Percent cell count reference ranges are not reported, since discordance with absolute values may lead to misinterpretation of CBC data. Current Interpretive Data was last revised on 2017. Imm gran pct 0.5 % [facility] Comment: Interpretive Data Percent cell count reference ranges are not reported, since discordance with absolute values may lead to misinterpretation of CBC data. Current Interpretive Data was last revised on 2017. Lymphocyte pct 10.5 % [facility] Comment: Interpretive Data Percent cell count reference ranges are not reported, since discordance with absolute values may lead to misinterpretation of CBC data. Current Interpretive Data was last revised on 2017. Monocyte pct 6.5 % [facility] Comment: Interpretive Data Percent cell count reference ranges are not reported, since discordance with absolute values may lead to misinterpretation of CBC data. Current Interpretive Data was last revised on 2017. Eosinophil pct 3.2 % [facility] Comment: Interpretive Data Percent cell count reference ranges are not reported, since discordance with absolute values may lead to misinterpretation of CBC data. Current Interpretive Data was last revised on 2017. Basophil pct 0.5 % [facility] Comment: Interpretive Data Percent cell count reference ranges are not reported, since discordance with absolute values may lead to misinterpretation of CBC data. Current Interpretive Data was last revised on 2017. Blood 03/05/2024 11:0 1 AM [employer]ACLE BUSINESS INTELLIGENCE DEVELOPER 03/05/2024 11:46 AM ORACLE BUSINESS INTELLIGENCE DEVELOPER Aiyana Baldwin NP LAB BLOOD ORDERABLES Final Result [facility] Department [place] [address] * (ABNORMAL) Pro B-type natriuretic peptide (03/05/2024 11:01 AM ORACLE BUSINESS INTELLIGENCE DEVELOPER) NT-proBNP 1,014(H) <=300 pg/mL Comment: Interpretive Comments: A. Dyspnea in Acute Care Setting All Ages: < 300 pg/ml, acute heart failure unlikely. < 50 yrs: 300 - 450 pg/ml, further investigation warranted. > 450 pg/ml, acute heart failure likely. 50 - 74 yrs: 300 - 900 pg/ml, further investigation warranted. > 900 pg/ml, acute heart failure likely . > or = 75 yrs: 450 - 1800 pg/ml, further investigation warranted. > 1800 pg/ml, acute heart failure likely. B. Non-acute Setting < 75 yrs < 125 pg/ml, rules out heart failure. > or = 125 pg/ml, further investigation warranted. > or = 75 yrs < 450 pg/ml, rules out heart failure. > or = 450 pg/ml, further investigation warranted. - Knowledge of each individual patient's NT-proBNP range may be more useful than using similar cut-points for every patient. Please note that marked elevations in NT-proBNP levels may be observed in state other than Left Ventricular Congestive Failure, including: acute coronary syndromes, right heart strain/failure (including pulmonary embolism and cor pulmonale), critical illness, renal failure, as well as advanced age. - References: 1. Hailee PINO et.al. Eur Heart J. 2006:27:330-337. 2. Etelvina RW, Krystina HOLLOWAY. J. AM Vinicio Cardiol: Cardiovasc Imag. 2009;2: 216- 225. Interpretive Data Last Revised Date: 2017. Blood 03/05/2024 11:0 1 AM [employer]ACLE BUSINESS INTELLIGENCE DEVELOPER 03/05/2024 11:46 AM ORACLE BUSINESS INTELLIGENCE DEVELOPER Aiyana Baldwin NP LAB BLOOD ORDERABLES Final Result [facility] Department [place] [address] * (ABNORMAL) CBC with auto differential (03/05/2024 11:01 AM ORACLE BUSINESS INTELLIGENCE DEVELOPER) WBC 10.1(H) 3.8 - 9.9 K/cumm Hgb 11.1(L) 11.9 - 15.5 g/dL [facility] Hct 35.8 35.6 - 45.5 % [facility] Plt 272 150 - 400 K/cumm [facility] MPV 10.0 9.1 - 12.3 fL [facility] RBC 3.68(L) 3.90 - 5.20 M/cumm [facility] MCV 97.3(H) 81.3 - 96.4 fL [facility] MCH 30.2 27.1 - 33.3 pg [facility] MCHC 31.0(L) 32.3 - 35.7 g/dL [facility] RDW CV 15.1(H) 11.1 - 14.9 % [facility] RDW SD 53.5(H) 35.7 - 48.1 fL [facility] NRBC abs 0.00 0.00 - 0.01 K/cumm [facility] Blood 03/05/2024 11:0 1 AM [employer]ACLE BUSINESS INTELLIGENCE DEVELOPER 03/05/2024 11:46 AM ORACLE BUSINESS INTELLIGENCE DEVELOPER Aiyana Baldwin CORONER TECHNICIAN LAB BLOOD ORDERABLES Final Result [facility] Department [place] [address] * (ABNORMAL) Basic metabolic panel (03/05/2024 11:01 AM ORACLE BUSINESS INTELLIGENCE DEVELOPER) [facility] Sodium 145 135 - 145 mmol/L Potassium, pl 4.6 3.3 - 4.9 mmol/L [facility] Chloride 102 97 - 110 mmol/L [facility] CO2 31 22 - 32 mmol/L [facility] Anion gap 12 2 - 15 mmol/L [facility] BUN 38(H) 6 - 25 mg/dL [facility] Creatinine 1.90(H) 0.60 - 1.10 mg/dL [facility] Glucose 202(H) 70 - 199 mg/dL [facility] Comment: Interpretive Data Fasting glucose >/= 126 mg/dl is diagnostic for diabetes. Fasting is defined as no caloric intake for at least 8 hours. Fasting glucose between 100 mg/dl to 125 mg/dl is diagnostic of prediabetes. In a patient with classic symptoms of hyperglycemia or hyperglycemic crisis, a random glucose >/= 200 mg/dl is diagnostic for diabetes. In the absence of unequivocal hyperglycemia, results should be confirmed by repeat testing. The classification and Diagnosis of Diabetes Diabetes Care 2021; 46: S19-S40. Current interpretive data was last revised 2022. Calcium 8.9 8.5 - 10.3 mg/dL [facility] Blood 03/05/2024 11:0 1 AM ORACLE BUSINESS INTELLIGENCE DEVELOPER 03/05/2024 11:46 AM ORACLE BUSINESS INTELLIGENCE DEVELOPER Aiyana Baldwin CORONER TECHNICIAN LAB BLOOD ORDERABLES Final Result Performing Organization Address [facility]/ZIP Co de Phone Number [facility] Department [place] [address] * (ABNORMAL) eGFR (02/26/2024 11:48 AM ORACLE BUSINESS INTELLIGENCE DEVELOPER) [facility] eGFR 26(L) >=60 mL/min/1. 73 m2 Comment: Interpretive Data Reference Interval Normal >/= 90 mL/min/1.73m2 Mildly decreased* 60 - 89 mL/min/1.73m2 Mildly to moderately decreased 45 - 59 mL/min/1.73m2 Moderately to severely decreased 30 - 44 mL/min/1.73m2 Severely decreased 15 - 29 mL/min/1.73m2 Kidney Failure < 15 mL/min/1.73m2 *Relative to young adult level Estimated glomerular filtration rate is determined by the 2020 CKD-EPI equation recommended by the National Kidney Foundation (A Unifying Approach to GFR Estimation: Recommendations of the NKF-ASK Task Force on Reassessing the Inclusion of Race in Diagnosing Kidney Disease, JASN 2020). The CKD-EPI equation should not be used for patients with unstable renal function and has not been validated in children and those over 70. Current interpretive data was last reviewed 2020. Blood 02/26/2024 11:4 8 AM ORACLE BUSINESS INTELLIGENCE DEVELOPER 02/26/2024 12:22 PM ORACLE BUSINESS INTELLIGENCE DEVELOPER us Davi Carvajal MD LAB BLOOD ORDERABLES Final R esult [facility] Department [place] [address] * (ABNORMAL) Basic metabolic panel (02/26/2024 11:48 AM ORACLE BUSINESS INTELLIGENCE DEVELOPER) [facility] Sodium 143 135 - 145 mmol/L Potassium, pl 4.9 3.3 - 4.9 mmol/L [facility] Chloride 105 97 - 110 mmol/L [facility] CO2 31 22 - 32 mmol/L [facility] Anion gap 7 2 - 15 mmol/L [facility] BUN 55(H) 6 - 25 mg/dL [facility] Creatinine 2.07(H) 0.60 - 1.10 mg/dL [facility] Glucose 170 70 - 199 mg/dL [facility] Comment: Interpretive Data Fasting glucose >/= 126 mg/dl is diagnostic for diabetes. Fasting is defined as no caloric intake for at least 8 hours. Fasting glucose between 100 mg/dl to 125 mg/dl is diagnostic of prediabetes. In a patient with classic symptoms of hyperglycemia or hyperglycemic crisis, a random glucose >/= 200 mg/dl is diagnostic for diabetes. In the absence of unequivocal hyperglycemia, results should be confirmed by repeat testing. The classification and Diagnosis of Diabetes Diabetes Care 2021; 46: S19-S40. Current interpretive data was last revised 2022. Calcium 8.9 8.5 - 10.3 mg/dL [facility] Blood 02/26/2024 11:4 8 AM ORACLE BUSINESS INTELLIGENCE DEVELOPER 02/26/2024 12:22 PM ORACLE BUSINESS INTELLIGENCE DEVELOPER us Davi Carvajal MD LAB BLOOD ORDERABLES Final R esult Performing Organization Address City/[facility] Co de Phone Number [facility] [place] [place] [address] * POCT glucose (02/26/2024 11:05 AM ORACLE BUSINESS INTELLIGENCE DEVELOPER) Glucose, POC 185 70 - 199 mg/dL Blood 02/26/2024 11:0 5 AM ORACLE BUSINESS INTELLIGENCE DEVELOPER 02/26/2024 11:05 AM ORACLE BUSINESS INTELLIGENCE DEVELOPER us Amena William MD LAB POCT ORDERABLES - D EVICE Final Result Performing Organization Address [facility] Co de Phone Number [facility] [place] [place] [address] * POCT glucose (02/26/2024 7:54 AM ORACLE BUSINESS INTELLIGENCE DEVELOPER) Glucose, POC 180 70 - 199 mg/dL Blood 02/26/2024 7:54 AM ORACLE BUSINESS INTELLIGENCE DEVELOPER 02/26/2024 7:54 AM ORACLE BUSINESS INTELLIGENCE DEVELOPER us Amena William MD LAB POCT ORDERABLES - D EVICE Final Result Performing Organization Address [facility] Co de Phone Number [facility] Department [place] [place] [address] * POCT glucose (02/25/2024 8:40 PM ORACLE BUSINESS INTELLIGENCE DEVELOPER) Glucose, POC 175 70 - 199 mg/dL Blood 02/25/2024 8:40 PM ORACLE BUSINESS INTELLIGENCE DEVELOPER 02/25/2024 8:40 PM ORACLE BUSINESS INTELLIGENCE DEVELOPER us Amena William MD LAB POCT ORDERABLES - D EVICE Final Result Performing Organization Address City/[facility]/ZIP Co de Phone Number [facility] Department [place] [address] * (ABNORMAL) eGFR (02/25/2024 8:20 PM ORACLE BUSINESS INTELLIGENCE DEVELOPER) Pathologist [facility] eGFR 23(L) >=60 mL/min/1. 73 m2 Comment: Interpretive Data Reference Interval Normal >/= 90 mL/min/1.73m2 Mildly decreased* 60 - 89 mL/min/1.73m2 Mildly to moderately decreased 45 - 59 mL/min/1.73m2 Moderately to severely decreased 30 - 44 mL/min/1.73m2 Severely decreased 15 - 29 mL/min/1.73m2 Kidney Failure < 15 mL/min/1.73m2 *Relative to young adult level Estimated glomerular filtration rate is determined by the 2020 CKD-EPI equation recommended by the National Kidney Foundation (A Unifying Approach to GFR Estimation: Recommendations of the NKF-ASK Task Force on Reassessing the Inclusion of Race in Diagnosing Kidney Disease, JASN 2020). The CKD-EPI equation should not be used for patients with unstable renal function and has not been validated in children and those over 70. Current interpretive data was last reviewed 2020. Blood 02/25/2024 8:20 PM ORACLE BUSINESS INTELLIGENCE DEVELOPER 02/25/2024 9:01 PM ORACLE BUSINESS INTELLIGENCE DEVELOPER us Jovany Mishra MD LAB BLOOD ORDERABLES Final Result Performing Organization Address City/[facility]/ZIP Co de Phone Number [facility] Department [place] [address] * Differential, auto (02/25/2024 8:20 PM ORACLE BUSINESS INTELLIGENCE DEVELOPER) Neutrophil abs 6.5 1.5 - 6.5 K/cumm Imm gran abs 0.0 0.0 - 0.1 K/cumm [facility] Lymphocyte abs 1.0 0.8 - 3.3 K/cumm [facility] Monocyte abs 0.7 0.2 - 0.8 K/cumm [facility] Eosinophil abs 0.3 0.0 - 0.5 K/cumm [facility] Basophil abs 0.0 0.0 - 0.1 K/cumm [facility] Neutrophil pct 75.7 % [facility] Comment: Interpretive Data Percent cell count reference ranges are not reported, since discordance with absolute values may lead to misinterpretation of CBC data. Current Interpretive Data was last revised on 2017. Imm gran pct 0.4 % [facility] Comment: Interpretive Data Percent cell count reference ranges are not reported, since discordance with absolute values may lead to misinterpretation of CBC data. Current Interpretive Data was last revised on 2017. Lymphocyte pct 12.1 % [facility] Comment: Interpretive Data Percent cell count reference ranges are not reported, since discordance with absolute values may lead to misinterpretation of CBC data. Current Interpretive Data was last revised on 2017. Monocyte pct 8.0 % [facility] Comment: Interpretive Data Percent cell count reference ranges are not reported, since discordance with absolute values may lead to misinterpretation of CBC data. Current Interpretive Data was last revised on 2017. Eosinophil pct 3.4 % [facility] Comment: Interpretive Data Percent cell count reference ranges are not reported, since discordance with absolute values may lead to misinterpretation of CBC data. Current Interpretive Data was last revised on 2017. Basophil pct 0.4 % [facility] Comment: Interpretive Data Percent cell count reference ranges are not reported, since discordance with absolute values may lead to misinterpretation of CBC data. Current Interpretive Data was last revised on 2017. Blood 02/25/2024 8:20 PM [employer]ACLE BUSINESS INTELLIGENCE DEVELOPER 02/25/2024 9:00 PM [employer]ACLE BUSINESS INTELLIGENCE DEVELOPER Jovany Mishra MD LAB BLOOD ORDERABLES Final Result Performing Organization Address [facility]/ZIP Co de Phone Number [facility] [place] [address] * (ABNORMAL) CBC with auto differential (02/25/2024 8:20 PM ORACLE BUSINESS INTELLIGENCE DEVELOPER) [facility] WBC 8.5 3.8 - 9.9 K/cumm Hgb 9.7(L) 11.9 - 15.5 g/dL [facility] Hct 33.0(L) 35.6 - 45.5 % [facility] Plt 216 150 - 400 K/cumm [facility] MPV 9.8 9.1 - 12.3 fL [facility] RBC 3.25(L) 3.90 - 5.20 M/cumm [facility] MCV 101.5(H) 81.3 - 96.4 fL [facility] MCH 29.8 27.1 - 33.3 pg [facility] MCHC 29.4(L) 32.3 - 35.7 g/dL [facility] RDW CV 14.4 11.1 - 14.9 % [facility] RDW SD 54.0(H) 35.7 - 48.1 fL [facility] NRBC abs 0.00 0.00 - 0.01 K/cumm [facility] Blood 02/25/2024 8:20 PM ORACLE BUSINESS INTELLIGENCE DEVELOPER 02/25/2024 9:00 PM ORACLE BUSINESS INTELLIGENCE DEVELOPER Jovany Mishra MD LAB BLOOD ORDERABLES Final Result [facility] Department [place] [address] * (ABNORMAL) Basic metabolic panel (02/25/2024 8:20 PM ORACLE BUSINESS INTELLIGENCE DEVELOPER) [facility] Sodium 145 135 - 145 mmol/L Potassium, pl 4.4 3.3 - 4.9 mmol/L [facility] Chloride 105 97 - 110 mmol/L [facility] CO2 33(H) 22 - 32 mmol/L [facility] Anion gap 7 2 - 15 mmol/L [facility] BUN 53(H) 6 - 25 mg/dL [facility] Creatinine 2.32(H) 0.60 - 1.10 mg/dL [facility] Glucose 175 70 - 199 mg/dL [facility] Comment: Interpretive Data Fasting glucose >/= 126 mg/dl is diagnostic for diabetes. Fasting is defined as no caloric intake for at least 8 hours. Fasting glucose between 100 mg/dl to 125 mg/dl is diagnostic of prediabetes. In a patient with classic symptoms of hyperglycemia or hyperglycemic crisis, a random glucose >/= 200 mg/dl is diagnostic for diabetes. In the absence of unequivocal hyperglycemia, results should be confirmed by repeat testing. The classification and Diagnosis of Diabetes Diabetes Care 2021; 46: S19-S40. Current interpretive data was last revised 2022. Calcium 9.0 8.5 - 10.3 mg/dL [facility] Blood 02/25/2024 8:20 PM ORACLE BUSINESS INTELLIGENCE DEVELOPER 02/25/2024 9:01 PM ORACLE BUSINESS INTELLIGENCE DEVELOPER us Jovany Mishra MD LAB BLOOD ORDERABLES Final Result Performing Organization Address City/[facility]/ZIP Co de Phone Number [facility] Department [place] [place] [address] * POCT glucose (02/25/2024 4:16 PM ORACLE BUSINESS INTELLIGENCE DEVELOPER) Glucose, POC 159 70 - 199 mg/dL Blood 02/25/2024 4:16 PM ORACLE BUSINESS INTELLIGENCE DEVELOPER 02/25/2024 4:16 PM ORACLE BUSINESS INTELLIGENCE DEVELOPER us Amena William MD LAB POCT ORDERABLES - Manuela MEDINA Final Result Performing Organization Address City/[facility]/ZIP Co de Phone Number [facility] [place] [place] [address] * POCT glucose (02/25/2024 12:00 PM ORACLE BUSINESS INTELLIGENCE DEVELOPER) Glucose, POC 161 70 - 199 mg/dL Blood 02/25/2024 12:0 0 PM ORACLE BUSINESS INTELLIGENCE DEVELOPER 02/25/2024 12:00 PM ORACLE BUSINESS INTELLIGENCE DEVELOPER Amena William MD LAB POCT ORDERABLES - D EVICE Final Result Performing Organization Address [facility] Co de Phone Number [facility] [place] [address] * POCT glucose (02/25/2024 7:44 AM ORACLE BUSINESS INTELLIGENCE DEVELOPER) Glucose, POC 159 70 - 199 mg/dL Blood 02/25/2024 7:44 AM ORACLE BUSINESS INTELLIGENCE DEVELOPER 02/25/2024 7:44 AM ORACLE BUSINESS INTELLIGENCE DEVELOPER us Amena William MD LAB POCT ORDERABLES - D EVICE Final Result Performing Organization Address [facility] Phone Number [facility] Department [place] [address] * (ABNORMAL) eGFR (2024 8:57 PM ORACLE BUSINESS INTELLIGENCE DEVELOPER) eGFR 24(L) >=60 mL/min/1. 73 m2 Comment: Interpretive Data Reference Interval Normal >/= 90 mL/min/1.73m2 Mildly decreased* 60 - 89 mL/min/1.73m2 Mildly to moderately decreased 45 - 59 mL/min/1.73m2 Moderately to severely decreased 30 - 44 mL/min/1.73m2 Severely decreased 15 - 29 mL/min/1.73m2 Kidney Failure < 15 mL/min/1.73m2 *Relative to young adult level Estimated glomerular filtration rate is determined by the 2020 CKD-EPI equation recommended by the National Kidney Foundation (A Unifying Approach to GFR Estimation: Recommendations of the NKF-ASK Task Force on Reassessing the Inclusion of Race in Diagnosing Kidney Disease, JASN 2020). The CKD-EPI equation should not be used for patients with unstable renal function and has not been validated in children and those over 70. Current interpretive data was last reviewed 2020. Blood 2024 8:57 PM ORACLE BUSINESS INTELLIGENCE DEVELOPER 2024 9:32 PM ORACLE BUSINESS INTELLIGENCE DEVELOPER us Jovany Mishra MD LAB BLOOD ORDERABLES Final Result [facility] Department [place] [address] * Differential, auto (2024 8:57 PM ORACLE BUSINESS INTELLIGENCE DEVELOPER) Neutrophil abs 6.4 1.5 - 6.5 K/cumm Imm gran abs 0.0 0.0 - 0.1 K/cumm [facility] Lymphocyte abs 0.9 0.8 - 3.3 K/cumm [facility] Monocyte abs 0.6 0.2 - 0.8 K/cumm [facility] Eosinophil abs 0.2 0.0 - 0.5 K/cumm [facility] Basophil abs 0.0 0.0 - 0.1 K/cumm [facility] Neutrophil pct 78.3 % [facility] Comment: Interpretive Data Percent cell count reference ranges are not reported, since discordance with absolute values may lead to misinterpretation of CBC data. Current Interpretive Data was last revised on 2017. Imm gran pct 0.4 % [facility] Comment: Interpretive Data Percent cell count reference ranges are not reported, since discordance with absolute values may lead to misinterpretation of CBC data. Current Interpretive Data was last revised on 2017. Lymphocyte pct 11.1 % [facility] Comment: Interpretive Data Percent cell count reference ranges are not reported, since discordance with absolute values may lead to misinterpretation of CBC data. Current Interpretive Data was last revised on 2017. Monocyte pct 7.7 % [facility] Comment: Interpretive Data Percent cell count reference ranges are not reported, since discordance with absolute values may lead to misinterpretation of CBC data. Current Interpretive Data was last revised on 2017. Eosinophil pct 2.1 % [facility] Comment: Interpretive Data Percent cell count reference ranges are not reported, since discordance with absolute values may lead to misinterpretation of CBC data. Current Interpretive Data was last revised on 2017. Basophil pct 0.4 % [facility] Comment: Interpretive Data Percent cell count reference ranges are not reported, since discordance with absolute values may lead to misinterpretation of CBC data. Current Interpretive Data was last revised on 2017. Blood 2024 8:57 PM ORACLE BUSINESS INTELLIGENCE DEVELOPER 2024 9:32 PM ORACLE BUSINESS INTELLIGENCE DEVELOPER us Jovany Mishra MD LAB BLOOD ORDERABLES Final Result Performing Organization Address City/[facility]/ZIP Co de Phone Number [facility] Department [place] [address] * (ABNORMAL) CBC with auto differential (2024 8:57 PM ORACLE BUSINESS INTELLIGENCE DEVELOPER) WBC 8.1 3.8 - 9.9 K/cumm Hgb 9.7(L) 11.9 - 15.5 g/dL [facility] Hct 32.9(L) 35.6 - 45.5 % [facility] Plt 206 150 - 400 K/cumm [facility] MPV 9.8 9.1 - 12.3 fL [facility] RBC 3.20(L) 3.90 - 5.20 M/cumm [facility] MCV 102.8(H) 81.3 - 96.4 fL [facility] MCH 30.3 27.1 - 33.3 pg [facility] MCHC 29.5(L) 32.3 - 35.7 g/dL [facility] RDW CV 14.4 11.1 - 14.9 % [facility] RDW SD 54.2(H) 35.7 - 48.1 fL [facility] NRBC abs 0.00 0.00 - 0.01 K/cumm [facility] Blood 2024 8:57 PM ORACLE BUSINESS INTELLIGENCE DEVELOPER 2024 9:32 PM ORACLE BUSINESS INTELLIGENCE DEVELOPER us Jovany Mishra MD LAB BLOOD ORDERABLES Final Result [facility] Department [place] [address] * (ABNORMAL) Basic metabolic panel (2024 8:57 PM ORACLE BUSINESS INTELLIGENCE DEVELOPER) Sodium 147(H) 135 - 145 mmol/L Potassium, pl 4.2 3.3 - 4.9 mmol/L [facility] Chloride 104 97 - 110 mmol/L [facility] CO2 34(H) 22 - 32 mmol/L [facility] Anion gap 9 2 - 15 mmol/L [facility] BUN 47(H) 6 - 25 mg/dL [facility] Creatinine 2.21(H) 0.60 - 1.10 mg/dL [facility] Glucose 189 70 - 199 mg/dL [facility] Comment: Interpretive Data Fasting glucose >/= 126 mg/dl is diagnostic for diabetes. Fasting is defined as no caloric intake for at least 8 hours. Fasting glucose between 100 mg/dl to 125 mg/dl is diagnostic of prediabetes. In a patient with classic symptoms of hyperglycemia or hyperglycemic crisis, a random glucose >/= 200 mg/dl is diagnostic for diabetes. In the absence of unequivocal hyperglycemia, results should be confirmed by repeat testing. The classification and Diagnosis of Diabetes Diabetes Care 2021; 46: S19-S40. Current interpretive data was last revised 2022. Calcium 9.0 8.5 - 10.3 mg/dL [facility] Blood 2024 8:57 PM ORACLE BUSINESS INTELLIGENCE DEVELOPER 2024 9:32 PM ORACLE BUSINESS INTELLIGENCE DEVELOPER Jovany Mishra MD LAB BLOOD ORDERABLES Final Result [facility] Department [place] [address] * (ABNORMAL) POCT glucose (2024 8:50 PM ORACLE BUSINESS INTELLIGENCE DEVELOPER) Glucose, POC 240(H) 70 - 199 mg/dL Blood 2024 8:50 PM ORACLE BUSINESS INTELLIGENCE DEVELOPER 2024 8:50 PM ORACLE BUSINESS INTELLIGENCE DEVELOPER us Amena William MD LAB POCT ORDERABLES - D EVICE Final Result Performing Organization Address [facility] Co de Phone Number [facility] [place] [address] * POCT glucose (2024 4:23 PM ORACLE BUSINESS INTELLIGENCE DEVELOPER) Glucose, POC 155 70 - 199 mg/dL Blood 2024 4:23 PM ORACLE BUSINESS INTELLIGENCE DEVELOPER 2024 4:23 PM ORACLE BUSINESS INTELLIGENCE DEVELOPER us Amena William MD LAB POCT ORDERABLES - D EVICE Final Result Performing Organization Address [facility] de Phone Number [facility] Department [place] [address] * (ABNORMAL) POCT glucose (2024 11:49 AM ORACLE BUSINESS INTELLIGENCE DEVELOPER) Glucose, POC 267(H) 70 - 199 mg/dL Blood 2024 11:4 9 AM ORACLE BUSINESS INTELLIGENCE DEVELOPER 2024 11:49 AM ORACLE BUSINESS INTELLIGENCE DEVELOPER us Amena William MD LAB POCT ORDERABLES - D EVICE Final Result Performing Organization Address [facility] de Phone Number [facility] Department [place] [address] * POCT glucose (2024 8:09 AM ORACLE BUSINESS INTELLIGENCE DEVELOPER) Glucose, POC 146 70 - 199 mg/dL Blood 2024 8:09 AM ORACLE BUSINESS INTELLIGENCE DEVELOPER 2024 8:09 AM ORACLE BUSINESS INTELLIGENCE DEVELOPER us Amena William MD LAB POCT ORDERABLES - D EVICE Final Result Performing Organization Address [facility] Co de Phone Number [facility] [place] [address] * (ABNORMAL) eGFR (02/23/2024 9:16 PM ORACLE BUSINESS INTELLIGENCE DEVELOPER) Pathologist [facility] [place] eGFR 29(L) >=60 mL/min/1. 73 m2 Comment: Interpretive Data Reference Interval Normal >/= 90 mL/min/1.73m2 Mildly decreased* 60 - 89 mL/min/1.73m2 Mildly to moderately decreased 45 - 59 mL/min/1.73m2 Moderately to severely decreased 30 - 44 mL/min/1.73m2 Severely decreased 15 - 29 mL/min/1.73m2 Kidney Failure < 15 mL/min/1.73m2 *Relative to young adult level Estimated glomerular filtration rate is determined by the 2020 CKD-EPI equation recommended by the National Kidney Foundation (A Unifying Approach to GFR Estimation: Recommendations of the NKF-ASK Task Force on Reassessing the Inclusion of Race in Diagnosing Kidney Disease, JASN 2020). The CKD-EPI equation should not be used for patients with unstable renal function and has not been validated in children and those over 70. Current interpretive data was last reviewed 2020. Blood 02/23/2024 9:16 PM ORACLE BUSINESS INTELLIGENCE DEVELOPER 02/23/2024 10:01 PM ORACLE BUSINESS INTELLIGENCE DEVELOPER us Amena William MD LAB BLOOD ORDERABLES Fi nal Result [facility] Department [place] [address] * (ABNORMAL) Basic metabolic panel (02/23/2024 9:16 PM ORACLE BUSINESS INTELLIGENCE DEVELOPER) Pathologist [facility] [place] Sodium 148(H) 135 - 145 mmol/L Potassium, pl 4.3 3.3 - 4.9 mmol/L [facility] Chloride 107 97 - 110 mmol/L [facility] CO2 32 22 - 32 mmol/L [facility] Anion gap 9 2 - 15 mmol/L [facility] BUN 42(H) 6 - 25 mg/dL [facility] Creatinine 1.92(H) 0.60 - 1.10 mg/dL [facility] Glucose 265(H) 70 - 199 mg/dL [facility] Comment: Interpretive Data Fasting glucose >/= 126 mg/dl is diagnostic for diabetes. Fasting is defined as no caloric intake for at least 8 hours. Fasting glucose between 100 mg/dl to 125 mg/dl is diagnostic of prediabetes. In a patient with classic symptoms of hyperglycemia or hyperglycemic crisis, a random glucose >/= 200 mg/dl is diagnostic for diabetes. In the absence of unequivocal hyperglycemia, results should be confirmed by repeat testing. The classification and Diagnosis of Diabetes Diabetes Care 2021; 46: S19-S40. Current interpretive data was last revised 2022. Calcium 9.2 8.5 - 10.3 mg/dL [facility] Blood 02/23/2024 9:16 PM ORACLE BUSINESS INTELLIGENCE DEVELOPER 02/23/2024 10:01 PM ORACLE BUSINESS INTELLIGENCE DEVELOPER us Jovany Mishra MD LAB BLOOD ORDERABLES Final Result Performing Organization Address City/[facility]/ZIP Co de Phone Number [facility] Department [place] [address] * POCT glucose (02/23/2024 8:04 PM ORACLE BUSINESS INTELLIGENCE DEVELOPER) [facility] Glucose, POC 184 70 - 199 mg/dL Blood 02/23/2024 8:04 PM ORACLE BUSINESS INTELLIGENCE DEVELOPER 02/23/2024 8:04 PM ORACLE BUSINESS INTELLIGENCE DEVELOPER Amena William MD LAB POCT ORDERABLES - D EVICE Final Result Performing Organization Address City/[facility]/ZIP Co de Phone Number [facility] Department [place] [address] * (ABNORMAL) Differential, auto (02/23/2024 6:30 PM ORACLE BUSINESS INTELLIGENCE DEVELOPER) [facility] Neutrophil abs 7.1(H) 1.5 - 6.5 K/cumm Imm gran abs 0.0 0.0 - 0.1 K/cumm [facility] Lymphocyte abs 0.7(L) 0.8 - 3.3 K/cumm [facility] Monocyte abs 0.4 0.2 - 0.8 K/cumm [facility] Eosinophil abs 0.2 0.0 - 0.5 K/cumm [facility] Basophil abs 0.0 0.0 - 0.1 K/cumm [facility] Neutrophil pct 83.9 % [facility] Comment: Interpretive Data Percent cell count reference ranges are not reported, since discordance with absolute values may lead to misinterpretation of CBC data. Current Interpretive Data was last revised on 2017. Imm gran pct 0.5 % [facility] Comment: Interpretive Data Percent cell count reference ranges are not reported, since discordance with absolute values may lead to misinterpretation of CBC data. Current Interpretive Data was last revised on 2017. Lymphocyte pct 8.6 % [facility] Comment: Interpretive Data Percent cell count reference ranges are not reported, since discordance with absolute values may lead to misinterpretation of CBC data. Current Interpretive Data was last revised on 2017. Monocyte pct 4.7 % [facility] Comment: Interpretive Data Percent cell count reference ranges are not reported, since discordance with absolute values may lead to misinterpretation of CBC data. Current Interpretive Data was last revised on 2017. Eosinophil pct 1.8 % [facility] Comment: Interpretive Data Percent cell count reference ranges are not reported, since discordance with absolute values may lead to misinterpretation of CBC data. Current Interpretive Data was last revised on 2017. Basophil pct 0.5 % [facility] Comment: Interpretive Data Percent cell count reference ranges are not reported, since discordance with absolute values may lead to misinterpretation of CBC data. Current Interpretive Data was last revised on 2017. Blood 02/23/2024 6:30 PM ORACLE BUSINESS INTELLIGENCE DEVELOPER 02/23/2024 9:59 PM ORACLE BUSINESS INTELLIGENCE DEVELOPER us Jovany Mishra MD LAB BLOOD ORDERABLES Final Result [facility] Department [place] [address] * (ABNORMAL) CBC with auto differential (02/23/2024 6:30 PM ORACLE BUSINESS INTELLIGENCE DEVELOPER) [facility] WBC 8.5 3.8 - 9.9 K/cumm Hgb 11.3(L) 11.9 - 15.5 g/dL [facility] Hct 37.1 35.6 - 45.5 % [facility] Plt 225 150 - 400 K/cumm [facility] MPV 10.0 9.1 - 12.3 fL [facility] RBC 3.72(L) 3.90 - 5.20 M/cumm [facility] MCV 99.7(H) 81.3 - 96.4 fL [facility] MCH 30.4 27.1 - 33.3 pg [facility] MCHC 30.5(L) 32.3 - 35.7 g/dL [facility] RDW CV 14.6 11.1 - 14.9 % [facility] RDW SD 53.3(H) 35.7 - 48.1 fL [facility] NRBC abs 0.00 0.00 - 0.01 K/cumm [facility] Blood 02/23/2024 6:30 PM ORACLE BUSINESS INTELLIGENCE DEVELOPER 02/23/2024 9:59 PM ORACLE BUSINESS INTELLIGENCE DEVELOPER us Jovany Mishra MD LAB BLOOD ORDERABLES Final Result Performing Organization Address City/[facility]/ZIP Co de Phone Number [facility] Department [place] [place] [address] * POCT glucose (02/23/2024 4:03 PM ORACLE BUSINESS INTELLIGENCE DEVELOPER) [facility] Glucose, POC 160 70 - 199 mg/dL Blood 02/23/2024 4:03 PM ORACLE BUSINESS INTELLIGENCE DEVELOPER 02/23/2024 4:03 PM ORACLE BUSINESS INTELLIGENCE DEVELOPER us Amena William MD LAB POCT ORDERABLES - D ADAM Final Result Performing Organization Address 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 We would given additional Lasix bolus. She should remain in the hospital for IV diuresis and monitor renal function. I was present during the entire procedure and personally dictated or confirmed the above report. Davi Carvajal MD Narrative 02/23/2024 3:58 PM ORACLE BUSINESS INTELLIGENCE DEVELOPER Procedure: CORONARY ANGIOGRAM / PERCUTANEOUS CORONARY INTERVENTION Patient: Abigail Trivedi is a 63 y.o. female : 1960 MR number: [id number] Date of Service: 02/23/2024 Pigment Grinder: MD Danica Zhao Christian Andrew, MD Referring physician: Julissa Mclain MD INDICATION: CHF/Dyspnea NYHA Class 3 PATIENT CLINICAL PROFILE: Abigail Trivedi is a 63 y.o. female with a history of Coronary artery disease and ischemic cardiomyopathy with chronic kidney disease presents for staged PCI to her diagonal PROCEDURE: The risks, benefits and alternatives of the procedures and moderate sedation were explained to the patient and informed consent was obtained. The patient was brought to the tin can laborer and placed on the table Bilateral groins and the right radial artery were prepped and draped in the usual sterile fashion. The right radial artery site was infiltrated with 2% lidocaine. I provided direct face to face monitoring of intravenous conscious sedation which was administered using Fentanyl and Versed by an independently certified nurse for a total of 120 minutes. The vessel was accessed using Angiocath needle and a 5/6 F Terumo glidesheath was placed without difficulty into the vessel. IV vasodilators were administered and heparin was administered when the catheter was placed in the ascending aorta. Percutaneous coronary intervention performed on the Proximal LAD. This was an ACC/AHA Type C. Initial Lesion Length 12mm and final lesion Length 30mm. Initial ZION Flow 3 Final ZION Flow 3. Equipment used: 6 EBU 3.5, [place] IVUS Catheter, scion blue, fielder XT, airline pilot/first officer 200, Fielder FC, microcatheter, 0.9 mm laser atherectomy catheter, 3-0 by 20 NC emerge balloon, a 3.5 x 15 shockwave lithotripsy balloon, 3 0 x 15 agent drug coated balloon, 3 5 by 13 mm OSIRO LEXIE Left Ventricular Hemodynamics were measured using jose guadalupe catheter, no left ventriculogram was done. At the end of the procedure, arteriotomy was successfully closed and hemostasis achieved by a TR band placement. Patient was transferred to the holding area in stable condition. There were no apparent complications. RESULTS: Hemodynamics: Left ventricular end diastolic blood pressure was 40mmHG. There was no gradient on pull back across the aortic valve Percutaneous coronary intervention performed on the diagonal and proximal LAD Patient was brought to the cardiac catheterization suite and prepped and draped in a sterile fashion. Access was obtained in the right radial artery and a 5/6 Terumo glide sheath inserted without difficulty. A 6 [place] EBU 3.5 guiding catheter was taken up and sat nicely. Heparin was administered to obtain ACT of greater than 300 was maintained throughout the case. Initial angiographic views showed high-grade InStent restenosis with a proximal LAD lesion. We took a workhorse wire but were not able to cross the InStent restenosis lesion as it was hard and resistant. We then attempted a Fielder FC wire but were unsuccessful. We then took acaravel microcatheter down and using the Fielder FC wire were again unsuccessful. We then used a Fielder XT a and crossed into the diagonal branch off of the lesion. We could not rewire into the main branch. We then took a Wine Maker 200 wire and again we are able to get into the diagonal branch. Finally we made a different bend on the Fielder FC and crossed into the stented area with a true luminal course. Next we attempted to deliver our microcatheter but were unsuccessful. We then used a Trapper balloon to trap out the other microcatheter. We placed a corsair pro XS down and with torquing were able to cross and get this into the distal vessel. We then placed a wiggle wire down the distal diagonal. We then placed a 6 [place] GuideLiner coast up into the proximal LAD. At this point we took our 0.9 mm laser atherectomy catheter and performed laser atherectomy starting at 45/25 across the lesion. We then increase to 60 60 with a 50 50 mixture of dye and contrast and performed several passes. Next we took a 3 0 x 20 NC emerge balloon and performed balloon inflation into the LAD up to 18 atmospheres. We then dilated the proximal segment up to 16 atmospheres. We then took our IVUS catheter down that showed excellent stent expansion with minimal neointimal tissue in the area of restenosis. There was some significant edge restenosis with a fibrotic and calcified plaque at the proximal edge of the stent. At this point we felt it was necessary to perform shockwave lithotripsy. We then took a 3 5 shockwave and treated it with a total of a 90 pulses in this area. Repeat imaging showed an excellent luminal gain. Next we took a through Eau agent DCB and performed drug coated balloon treatment to the area of ISR distally up to 6 atmospheres for 2 minutes. We then took a 3 5 x 13 mm drug-eluting stent into the proximal portion and placed it overlapping the stent slightly. It was deployed at 14 atmospheres. We then repeated our imaging in the proximal segment which showed excellent stent apposition with no edge dissection with excellent luminal gain. The proximal portion of the LAD have some plaquing but no significant damage from the Guidezilla was shown nor was there any severe lesion. Final angiographic views showed excellent result with ZION 3 flow down all side branches no evidence of dissection or perforation. We then turned our attention the right radial artery whereby a TR band COMPLICATIONS: None DIAGNOSTIC us Davi Carvajal MD CV CARDIAC CATH PROCEDURES F inal Result * (ABNORMAL) POCT Activated clotting time, low range (02/23/2024 3:15 PM ORACLE BUSINESS INTELLIGENCE DEVELOPER) ACT 290(H) 123 - 168 sec POC Performer [id number] [facility] POC Device Number [id number] [facility] Blood 02/23/2024 3:15 PM ORACLE BUSINESS INTELLIGENCE DEVELOPER 02/23/2024 3:15 PM ORACLE BUSINESS INTELLIGENCE DEVELOPER us Amena William MD LAB POCT ORDERABLES - D EVICE Final Result [facility] [place] [address] * (ABNORMAL) POCT Activated clotting time, low range (02/23/2024 2:01 PM ORACLE BUSINESS INTELLIGENCE DEVELOPER) ACT 360(H) 123 - 168 sec POC Performer [id number] [facility] POC Device Number [id number] [facility] Blood 02/23/2024 2:01 PM ORACLE BUSINESS INTELLIGENCE DEVELOPER 02/23/2024 2:01 PM ORACLE BUSINESS INTELLIGENCE DEVELOPER us Amena William MD LAB POCT ORDERABLES - D EVICE Final Result Performing Organization Address [facility] [place] [address] * (ABNORMAL) POCT Activated clotting time, low range (02/23/2024 1:43 PM ORACLE BUSINESS INTELLIGENCE DEVELOPER) ACT 244(H) 123 - 168 sec POC Performer [id number] [facility] POC Device Number [id number] [facility] Blood 02/23/2024 1:43 PM ORACLE BUSINESS INTELLIGENCE DEVELOPER 02/23/2024 1:43 PM ORACLE BUSINESS INTELLIGENCE DEVELOPER us Amena William MD LAB POCT ORDERABLES - D EVICE Final Result Performing Organization Address [facility]/ZIP Co de Phone Number [facility] [place] [address] * POCT glucose (02/23/2024 10:15 AM ORACLE BUSINESS INTELLIGENCE DEVELOPER) Glucose, POC 138 70 - 199 mg/dL Blood 02/23/2024 10:1 5 AM ORACLE BUSINESS INTELLIGENCE DEVELOPER 02/23/2024 10:15 AM ORACLE BUSINESS INTELLIGENCE DEVELOPER us Amena William MD LAB POCT ORDERABLES - D EVICE Final Result Performing Organization Address [facility] Co de Phone Number TRACY [facility] Department [place] [address] * POCT glucose (02/23/2024 8:47 AM ORACLE BUSINESS INTELLIGENCE DEVELOPER) Glucose, POC 139 70 - 199 mg/dL Blood 02/23/2024 8:47 AM ORACLE BUSINESS INTELLIGENCE DEVELOPER 02/23/2024 8:47 AM ORACLE BUSINESS INTELLIGENCE DEVELOPER us Amena William MD LAB POCT ORDERABLES - D ADAM Final Result [facility] [place] [address] * TRANSTHORACIC ECHO (TTE) COMPLETE W DOPPLER/CF W CONTRAST (02/23/2024 8:43 AM ORACLE BUSINESS INTELLIGENCE DEVELOPER) Pathologist [facility] LV EF 35-40 % CONS SCIMAGE Anatomical Region Laterality Modality Ultrasound 02/23/2024 7:15 AM ORACLE BUSINESS INTELLIGENCE DEVELOPER Narrative 02/23/2024 1:35 PM ORACLE BUSINESS INTELLIGENCE DEVELOPER [facility] [place] [address] Transthoracic Echocardiographic Report Patient Name: ABIGAIL TRIVEDI A : 1960 (63y 11m) Gender: F Study Date: 02/23/2024 07:15:01 AM Ht(Inch): 62 Wt(Lb): 304.01 BSA: 2.46 Medical Office Assistant Instructor: Genna Saeed RDCS Location: [id number] Order Provider: GRETCHEN MCLAIN Heart Rate: 84 BMI: 55.6 BP: 162 / 67 Quality: The study images were of technically good quality. Ref Provider: GRETCHEN MCLAIN PROCEDURES: Echocardiographic Report: ([id number], [id number], [id number]) Transthoracic complete echo with strain imaging and contrast, 2D, spectral and tissue Doppler, color flow Doppler, M- mode. Contrast: 2.3 ml Optison Administered, (0.7 ml wasted). INDICATIONS: Heart Failure. MEASUREMENTS: 2D/MM Value Range Doppler Value Range LVIDd 2D 5.07 cm [ 3.80 - 5.20 ] AV Peak John 1.40 m/s [ 1.00 - 1.70 ] LVIDs 2D 3.25 cm [ 2.20 - 3.50 ] AV Peak PG 7.84 IVSd 2D 1.20 cm [ 0.60 - 0.90 ] AV Mean PG 4.65 mmHg LVPWd 2D 1.23 cm [ 0.60 - 0.90 ] AV VTI 32.96 cm LV Thickness Ratio 0.98 [ 1.50 - 3.00 ] LVOT Peak John 1.26 m/s [ 0.70 - 1.10 ] LV FS 2D 35.92 % [ 27.00 - 45.00 ] LVOT Peak PG 6.35 LV Mass 2D 247.34 g LVOT Mean PG 3.41 mmHg LV Mass Index 2D 100.54 g/m2 LVOT VTI 28.23 cm RWT 0.49 LVOT Diam 1.90 cm EDV 2D 122.12 JOSE VTI 2.43 cm2 ESV 2D 42.53 OJSE Vmax 2.55 cm2 EF Teich 2D 65 % LVOT/AV VTI 0.86 - Dimensionless index (DVI) LV EDV Index 63.00 ml/m2 MV E Peak John 96.52 cm/sec [ 0.60 - 1.30 ] EDV Mod 2C 135.00 ml [ 41.00 - 133.00 ] MV A Peak John 102.72 cm/sec [ 1.00 - 1.20 ] EDV Mod 4C 159.70 ml MV E/A 0.94 ratio [ 0.80 - 1.50 ] EDV Mod BP 154.97 ml [ 46.00 - 106.00 ] MV Decel Time 206.75 msec [ 104.00 - 258.00 ] ESV Mod 2C 69.29 ml Med E` Ojhn 4.979 cm/sec [ 1.000 - 1.500 ] ESV Mod 4C 101.99 ml Lat E` John 9.909 cm/sec [ 0.100 - 0.150 ] ESV Mod BP 85.54 ml [ 14.00 - 42.00 ] Average E/E` 12.97 EF Mod 2C 49 % RV S` 0.13 m/s EF Mod 4C 36 % PV Peak John 1.25 m/s [ 0.40 - 0.80 ] Estimated EF 35-40 % PV Peak PG 6.25 LV GLS -6.8 % PV Accel Time 97.05 msec [ 103.00 - 142.00 ] LA Dimension 2C 6.57 cm PV Accel Brooke 10.89 m/s LA Dimension 4C 6.80 cm LA Length 2C 6.57 cm LA Length 4C 6.80 cm LA Volume 2C 98.5 ml LA Volume 4C 96.3 ml LA Volume BP 102.28 ml LA Volume Index 41.58 ml/m2 RVDd 2D 3.43 cm [ 2.00 - 3.00 ] TAPSE 2.26 cm [ 1.71 - 5.00 ] RA Area 12.69 cm/m2 [ 10.00 - 18.00 ] RA Volume 32.50 ml RA Volume Index 13.21 ml/m2 AoR Diam 2D 3.12 cm [ 2.70 - 3.70 ] AoR Index 1 Asc Ao Diam 2D 3.29 cm Asc Ao Index 1.34 cm/m2 - FINDINGS: Left Ventricle: Normal left ventricular size. Mildly dilated left ventricle based on volume index. Concentric LV hypertrophy. The Ejection Fraction is estimated to be 35-40 %. Left ventricular diastolic parameters are consistent with moderate (Grade II) diastolic dysfunction. Resting Segmental Wall Motion Analysis: Total wall motion score is 1.76. There is akinesis of the apical cap. There is akinesis of the apical anterior to apical lateral to apical septal wall. There is hypokinesis of the mid anteroseptal to mid anterior to mid anterolateral to mid inferoseptal wall. There is hypokinesis of the apical inferior wall. The remaining left ventricular segments demonstrate normal wall motion. Right Ventricle: Normal right ventricular size. Normal right ventricular systolic function. Left Atrium: Mildly dilated left atrium. Right Atrium: The right atrium is normal in size. Mitral Valve: Mild mitral annular calcification. Aortic Valve: No aortic valve stenosis. The peak transaortic gradient is 7.84 mmHg. The mean transaortic gradient is 4.65 mmHg. Tricuspid Valve: There is trivial tricuspid regurgitation. Pulmonic Valve: No evidence of pulmonic regurgitation. Pericardium: No pericardial effusion. Aorta: The aortic root is normal in size. The aortic root is normal in size. The ascending aorta is normal in size. IVC: The inferior vena cava is of normal size. The IVC (inferior vena cava) was <2.1 cm and collapsibility >50%. The RA pressure is estimated to be 3 mmHg. CONCLUSIONS: 1. Normal left ventricular size. Mild concentric LV hypertrophy. The Ejection Fraction is estimated to be 35-40 %. Left ventricular diastolic parameters are consistent with moderate (Grade II) diastolic dysfunction. 2. Normal RV size and function. 3. Normal aorta, LA, RA and IVC. 4. No significant valvular abnormalities. 5. No pericardial effusion. 6. The findings are c/w stress cardiomyopathy vs. CAD; clinical correlation needed. ATTESTATION: I have reviewed and interpreted the pertinent images and measurements of this study. I attest to the conclusions in the final report that is provided above. DISCLAIMER: The study images and the final report will be retained in the patient chart by the Echo Laboratory for the legally required time period. This chart constitutes the legal record of any testing performed. Electronically Signed By: Kim Taylor MD 02/23/2024 10:15:19 AM ORACLE BUSINESS INTELLIGENCE DEVELOPER Electronically Signed By: Alonso Reardon MD 02/23/2024 1:34:00 PM ORACLE BUSINESS INTELLIGENCE DEVELOPER Wall Motion Analysis - Resting Procedure Note Alonso Reardon MD - 02/23/2024 [facility] Cardiac [place] [address] Transthoracic Echocardiographic Report Patient Name: ABIGAIL TRIVEDI A : 1960 (63y 11m) Gender: F Study Date: 02/23/2024 07:15:01 AM Ht(Inch): 62 Wt(Lb): 304.01 BSA: 2.46 Medical Office Assistant Instructor: Genna Saeed RUST Location: [id number] Order Provider:GRETCHEN MCLAIN Heart Rate: 84 BMI: 55.6 BP: 162 / 67 Quality: The study images were oftechnically good quality. Ref Provider: GRETCHEN MCLAIN PROCEDURES: Echocardiographic Report: ([id number], [id number]) Transthoracic completeecho with strain imaging and contrast, 2D, spectral and tissue Doppler, color flow Doppler,M- mode. Contrast: 2.3 ml Optison Administered, (0.7 ml wasted). INDICATIONS: Heart Failure. MEASUREMENTS: 2D/MM Value Range DopplerValue Range LVIDd 2D 5.07 cm [ 3.80 - 5.20 ] AV Peak Vel1.40 m/s [ 1.00 - 1.70 ] LVIDs 2D 3.25 cm [ 2.20 - 3.50 ] AV Peak PG7.84 IVSd 2D 1.20 cm [ 0.60 - 0.90 ] AV Mean PG4.65 mmHg LVPWd 2D 1.23 cm [ 0.60 - 0.90 ] AV VTI32.96 cm LV Thickness Ratio 0.98 [ 1.50 - 3.00 ] LVOT Peak Vel1.26 m/s [ 0.70 - 1.10 ] LV FS 2D 35.92 % [ 27.00 - 45.00 ] LVOT Peak PG6.35 LV Mass 2D 247.34 g LVOT Mean PG3.41 mmHg LV Mass Index 2D 100.54 g/m2 LVOT VTI28.23 cm RWT 0.49 LVOT Diam1.90 cm EDV 2D 122.12 JOSE VTI2.43 cm2 ESV 2D 42.53 JOSE Vmax2.55 cm2 EF Teich 2D 65 % LVOT/AV VTI0.86 - Dimensionless index (DVI) LV EDV Index 63.00 ml/m2 MV E Peak Vel96.52 cm/sec [ 0.60 - 1.30 ] EDV Mod 2C 135.00 ml [ 41.00 - 133.00 ] MV A Peak Mbs870.72 cm/sec [ 1.00 - 1.20 ] EDV Mod 4C 159.70 ml MV E/A0.94 ratio [ 0.80 - 1.50 ] EDV Mod BP 154.97 ml [ 46.00 - 106.00 ] MV Decel Osoj986.75 msec [ 104.00 - 258.00 ] ESV Mod 2C 69.29 ml Med E` Vel4.979 cm/sec [ 1.000 - 1.500 ] ESV Mod 4C 101.99 ml Lat E` Vel9.909 cm/sec [ 0.100 - 0.150 ] ESV Mod BP 85.54 ml [ 14.00 - 42.00 ] Average E/E`12.97 EF Mod 2C 49 % RV S`0.13 m/s EF Mod 4C 36 % PV Peak Vel1.25 m/s [ 0.40 - 0.80 ] Estimated EF 35-40 % PV Peak PG6.25 LV GLS -6.8 % PV Accel Time97.05 msec [ 103.00 - 142.00 ] LA Dimension 2C 6.57 cm PV Accel Slope10.89 m/s LA Dimension 4C6.80 cm LA Length 2C6.57 cm LA Length 4C6.80 cm LA Volume 2C98.5 ml LA Volume 4C96.3 ml LA Volume BP102.28 ml LA Volume Index41.58 ml/m2 RVDd 2D 3.43 cm [ 2.00 - 3.00 ] TAPSE 2.26 cm [ 1.71 - 5.00 ] RA Area 12.69 cm/m2 [ 10.00 - 18.00 ] RA Dovbpm02.50 ml RA Volume Index13.21 ml/m2 AoR Diam 2D 3.12 cm [ 2.70 - 3.70 ] AoR Index 1 Asc Ao Diam 2D3.29 cm Asc Ao Index1.34 cm/m2 - FINDINGS: Left Ventricle: Normal left ventricular size. Mildly dilated leftventricle based on volume index. Concentric LV hypertrophy. The Ejection Fraction isestimated to be 35-40 %. Left ventricular diastolic parameters are consistent with moderate(Grade II) diastolic dysfunction. Resting Segmental Wall Motion Analysis: Total wall motion score is 1.76.There is akinesis of the apical cap. There is akinesis of the apical anterior toapical lateral to apical septal wall. There is hypokinesis of the mid anteroseptal to midanterior to mid anterolateral to mid inferoseptal wall. There is hypokinesis of the apicalinferior wall. The remaining left ventricular segments demonstrate normal wall motion. Right Ventricle: Normal right ventricular size. Normal right ventricularsystolic function. Left Atrium: Mildly dilated left atrium. Right Atrium: The right atrium is normal in size. Mitral Valve: Mild mitral annular calcification. Aortic Valve: No aortic valve stenosis. The peak transaortic gradient is7.84 mmHg. The mean transaortic gradient is 4.65 mmHg. Tricuspid Valve: There is trivial tricuspid regurgitation. Pulmonic Valve: No evidence of pulmonic regurgitation. Pericardium: No pericardial effusion. Aorta: The aortic root is normal in size. The aortic root is normal insize. The ascending aorta is normal in size. IVC: The inferior vena cava is of normal size. The IVC (inferior venacava) was <2.1 cm and collapsibility >50%. The RA pressure is estimated to be 3 mmHg. CONCLUSIONS: 1. Normal left ventricular size. Mild concentric LV hypertrophy. TheEjection Fraction is estimated to be 35-40 %. Left ventricular diastolic parameters areconsistent with moderate (Grade II) diastolic dysfunction. 2. Normal RV size and function. 3. Normal aorta, LA, RA and IVC. 4. No significant valvular abnormalities. 5. No pericardial effusion. 6. The findings are c/w stress cardiomyopathy vs. CAD; clinicalcorrelation needed. ATTESTATION: I have reviewed and interpreted the pertinent images and measurements ofthis study. I attest to the conclusions in the final report that is provided above. DISCLAIMER: The study images and the final report will be retained in the patientchart by the Echo Laboratory for the legally required time period. This chart constitutesthe legal record of any testing performed. Electronically Signed By: Kim Taylor MD 02/23/2024 10:15:19 AM ORACLE BUSINESS INTELLIGENCE DEVELOPER Electronically Signed By: Alonso Reardon MD 02/23/2024 1:34:00 PM ORACLE BUSINESS INTELLIGENCE DEVELOPER Wall Motion Analysis - Resting us Gretchen Mclain MD CV ECHO PROCEDURES Final Res ult * (ABNORMAL) Troponin I high-sensitivity (02/22/2024 10:46 PM ORACLE BUSINESS INTELLIGENCE DEVELOPER) Trop I hs 25(H) <=17 ng/L Comment: Interpretive Data For further hscTnI resources including the diagnostic algorithm and an aid in interpretation, copy and paste this link: [email or web address] Current Interpretive Data last revised 2019. Blood 02/22/2024 10:4 6 PM ORACLE BUSINESS INTELLIGENCE DEVELOPER 02/22/2024 11:23 PM ORACLE BUSINESS INTELLIGENCE DEVELOPER us Amena William MD LAB BLOOD ORDERABLES Fi nal Result [facility] Department [place] [address] * X-ray chest 1 view (Portable) (02/22/2024 9:35 PM ORACLE BUSINESS INTELLIGENCE DEVELOPER) Anatomical Region Laterality Modality Body, Chest N/A Computed Radiogr aphy 02/23/2024 8:46 AM ORACLE BUSINESS INTELLIGENCE DEVELOPER Impressions 02/23/2024 9:29 AM ORACLE BUSINESS INTELLIGENCE DEVELOPER Comparison made to 11/20/2023. Clear lungs with no pulmonary edema or consolidation. No pneumothorax or pleural effusion. Unchanged cardiomegaly. Dictated by: Dany Gibson M.D. The radiology attending physician has personally reviewed this study, and had reviewed and/or edited this written report and agrees with it. Electronically signed by: Denita Jimenez M.D. Narrative 02/23/2024 9:29 AM ORACLE BUSINESS INTELLIGENCE DEVELOPER EXAMINATION: 1 view chest radiograph Procedure Note Barbara, Denita Steinbrecher, MD - 02/23/2024 EXAMINATION: 1 view chest radiograph IMPRESSION: Comparison made to 11/20/2023. Clear lungs with no pulmonary edema or consolidation. No pneumothorax or pleural effusion. Unchanged cardiomegaly. Dictated by: Dany Gibson M.D. The radiology attending physician has personally reviewed this study, and had reviewed and/or edited this written report and agrees with it. Electronically signed by: Denita Jimenez M.D. Gretchen Mclain MD IMG XR PROCEDURES Final Resu lt * POCT glucose (02/22/2024 9:11 PM ORACLE BUSINESS INTELLIGENCE DEVELOPER) Glucose, POC 144 70 - 199 mg/dL Blood 02/22/2024 9:11 PM ORACLE BUSINESS INTELLIGENCE DEVELOPER 02/22/2024 9:11 PM ORACLE BUSINESS INTELLIGENCE DEVELOPER Gretchen Mclain MD LAB POCT ORDERABLES - DEVICE Final Result Performing Organization Address [facility] Co de Phone Number [facility] [place] [address] * (ABNORMAL) Troponin I high-sensitivity (02/22/2024 8:42 PM ORACLE BUSINESS INTELLIGENCE DEVELOPER) Pathologist [facility] Trop I hs 21(H) <=17 ng/L Comment: Interpretive Data For further hscTnI resources including the diagnostic algorithm and an aid in interpretation, copy and paste this link: [email or web address] Current Interpretive Data last revised 2019. Blood 02/22/2024 8:42 PM ORACLE BUSINESS INTELLIGENCE DEVELOPER 02/22/2024 9:27 PM ORACLE BUSINESS INTELLIGENCE DEVELOPER Gretchen Mclain MD LAB BLOOD ORDERABLES Final R esult Performing Organization Address City/[facility]/ZIP Co de Phone Number TRACY [facility] Department [place] [address] * (ABNORMAL) eGFR (02/22/2024 8:42 PM ORACLE BUSINESS INTELLIGENCE DEVELOPER) Pathologist [facility] eGFR 28(L) >=60 mL/min/1. 73 m2 Comment: Interpretive Data Reference Interval Normal >/= 90 mL/min/1.73m2 Mildly decreased* 60 - 89 mL/min/1.73m2 Mildly to moderately decreased 45 - 59 mL/min/1.73m2 Moderately to severely decreased 30 - 44 mL/min/1.73m2 Severely decreased 15 - 29 mL/min/1.73m2 Kidney Failure < 15 mL/min/1.73m2 *Relative to young adult level Estimated glomerular filtration rate is determined by the 2020 CKD-EPI equation recommended by the National Kid[employer] (A Unifying Approach to GFR Estimation: Recommendations of the NKF-ASK Task Force on Reassessing the Inclusion of Race in Diagnosing Kidney Disease, JASN 2020). The CKD-EPI equation should not be used for patients with unstable renal function and has not been validated in children and those over 70. Current interpretive data was last reviewed 2020. Blood 02/22/2024 8:42 PM ORACLE BUSINESS INTELLIGENCE DEVELOPER 02/22/2024 9:23 PM ORACLE BUSINESS INTELLIGENCE DEVELOPER us Gretchen Mclain MD LAB BLOOD ORDERABLES Final R esult [facility] Department [place] [address] * Differential, auto (02/22/2024 8:42 PM ORACLE BUSINESS INTELLIGENCE DEVELOPER) Pathologist [facility] Neutrophil abs 6.5 1.5 - 6.5 K/cumm Imm gran abs 0.0 0.0 - 0.1 K/cumm [facility] Lymphocyte abs 1.2 0.8 - 3.3 K/cumm [facility] Monocyte abs 0.7 0.2 - 0.8 K/cumm [facility] Eosinophil abs 0.3 0.0 - 0.5 K/cumm [facility] Basophil abs 0.0 0.0 - 0.1 K/cumm [facility] Neutrophil pct 74.6 % [facility] Comment: Interpretive Data Percent cell count reference ranges are not reported, since discordance with absolute values may lead to misinterpretation of CBC data. Current Interpretive Data was last revised on 2017. Imm gran pct 0.5 % [facility] Comment: Interpretive Data Percent cell count reference ranges are not reported, since discordance with absolute values may lead to misinterpretation of CBC data. Current Interpretive Data was last revised on 2017. Lymphocyte pct 13.6 % [facility] Comment: Interpretive Data Percent cell count reference ranges are not reported, since discordance with absolute values may lead to misinterpretation of CBC data. Current Interpretive Data was last revised on 2017. Monocyte pct 7.6 % [facility] Comment: Interpretive Data Percent cell count reference ranges are not reported, since discordance with absolute values may lead to misinterpretation of CBC data. Current Interpretive Data was last revised on 2017. Eosinophil pct 3.2 % [facility] Comment: Interpretive Data Percent cell count reference ranges are not reported, since discordance with absolute values may lead to misinterpretation of CBC data. Current Interpretive Data was last revised on 2017. Basophil pct 0.5 % [facility] Comment: Interpretive Data Percent cell count reference ranges are not reported, since discordance with absolute values may lead to misinterpretation of CBC data. Current Interpretive Data was last revised on 2017. Blood 02/22/2024 8:42 PM ORACLE BUSINESS INTELLIGENCE DEVELOPER 02/22/2024 9:27 PM ORACLE BUSINESS INTELLIGENCE DEVELOPER us Gretchen Mclain MD LAB BLOOD ORDERABLES Final R esult [facility] Department [place] [address] * (ABNORMAL) Pro B-type natriuretic peptide (02/22/2024 8:42 PM ORACLE BUSINESS INTELLIGENCE DEVELOPER) NT-proBNP 926(H) <=300 pg/mL Comment: Interpretive Comments: A. Dyspnea in Acute Care Setting All Ages: < 300 pg/ml, acute heart failure unlikely. < 50 yrs: 300 - 450 pg/ml, further investigation warranted. > 450 pg/ml, acute heart failure likely. 50 - 74 yrs: 300 - 900 pg/ml, further investigation warranted. > 900 pg/ml, acute heart failure likely . > or = 75 yrs: 450 - 1800 pg/ml, further investigation warranted. > 1800 pg/ml, acute heart failure likely. B. Non-acute Setting < 75 yrs < 125 pg/ml, rules out heart failure. > or = 125 pg/ml, further investigation warranted. > or = 75 yrs < 450 pg/ml, rules out heart failure. > or = 450 pg/ml, further investigation warranted. - Knowledge of each individual patient's NT-proBNP range may be more useful than using similar cut-points for every patient. Please note that marked elevations in NT-proBNP levels may be observed in state other than Left Ventricular Congestive Failure, including: acute coronary syndromes, right heart strain/failure (including pulmonary embolism and cor pulmonale), critical illness, renal failure, as well as advanced age. - References: 1. Hailee PINO et.al. Eur Heart J. 2006:27:330-337. 2. Etelvina RW, Krystina HOLLOWAY. J. AM Vinicio Cardiol: Cardiovasc Imag. 2009;2: 216- 225. Interpretive Data Last Revised Date: 2017. Blood 02/22/2024 8:42 PM ORACLE BUSINESS INTELLIGENCE DEVELOPER 02/22/2024 9:23 PM ORACLE BUSINESS INTELLIGENCE DEVELOPER Gretchen Mclain MD LAB BLOOD ORDERABLES Final R esult [facility] Department [place] [address] * (ABNORMAL) Thyroid Function [place] (02/22/2024 8:42 PM ORACLE BUSINESS INTELLIGENCE DEVELOPER) TSH 7.20(H) 0.30 - 4.20 mcIUnit/mL Blood 02/22/2024 8:42 PM ORACLE BUSINESS INTELLIGENCE DEVELOPER 02/22/2024 9:23 PM ORACLE BUSINESS INTELLIGENCE DEVELOPER Gretchen Mclain MD LAB BLOOD ORDERABLES Final R esult [facility] Department [place] [address] * Respiratory pathogen panel Nasopharyngeal (02/22/2024 8:42 PM ORACLE BUSINESS INTELLIGENCE DEVELOPER) Pathologist [facility] [place] Influenza A RNA Not Detected Not Detected Influenza B RNA Not Detected Not Detected [facility] RSV RNA Not Detected Not Detected [facility] COVID-19 RNA Not Detected Not Detected [facility] Coronavirus 229E RNA Not Detected Not Detected [facility] Coronavirus HKU1 RNA Not Detected Not Detected [facility] Coronavirus NL63 RNA Not Detected Not Detected [facility] Coronavirus OC43 RNA Not Detected Not Detected [facility] Adenovirus DNA Not Detected Not Detected [facility] Metapneumovirus RNA Not Detected Not Detected [facility] Rhinovirus/Enterov irus RNA Not Detected Not Detected [facility] Parainfluenza 1 RNA Not Detected Not Detected [facility] Parainfluenza 2 RNA Not Detected Not Detected [facility] Parainfluenza 3 RNA Not Detected Not Detected [facility] Parainfluenza 4 RNA Not Detected Not Detected [facility] B. pertussis DNA Not Detected Not Detected [facility] B. parapertussis DNA Not Detected Not Detected [facility] C. pneumoniae DNA Not Detected Not Detected [facility] M. pneumoniae DNA Not Detected Not Detected [facility] Nasopharyngeal 02/22/2024 8: 42 PM ORACLE BUSINESS INTELLIGENCE DEVELOPER 02/22/2024 9:21 PM ORACLE BUSINESS INTELLIGENCE DEVELOPER Narrative [facility] - 02/22/2024 10:27 PM ORACLE BUSINESS INTELLIGENCE DEVELOPER Is the Patient experiencing symptoms consistent with COVID?->Yes Surveillance testing for transplant patient?->No Interpretive Data The [employer] FilmArray Respiratory Panel (RP2.1) assay is a multiplexed real-time PCR based nucleic acid test capable of simultaneous qualitative detection and identification of multiple respiratory viral and bacterial nucleic acids, including SARS Coronavirus 2 (the causative agent of COVID-19). The following bacteria, viruses and virus subtypes can be identified using the FilmArray RP2.1 assay: Bordetella pertussis, Bordetella parapertussis, Chlamydia pneumoniae, Mycoplasma pneumoniae, Adenovirus, SARS Coronavirus 2, seasonal coronaviruses (Coronavirus HKU1, Coronavirus NL63, Coronavirus 229E, and Coronavirus OC43), Influenza A, Influenza A subtype H1, Influenza A subtype H3, Influenza A subtype 2009 H1, Influenza B, Metapneumovirus, Parainfluenza 1, Parainfluenza 2, Parainfluenza 3, Parainfluenza 4, RSV, Rhinovirus/Enterovirus. Due to the genetic similarity between human Rhinovirus and Enterovirus, the FilmArray RP2.1 assay cannot reliably differentiate them. Coronavirus OC43 may cross-react with some isolates of Coronavirus HKU1. A dual positive result may be due to cross-reactivity or may indicate a co- infection. The detection and identification of specific viral and bacterial nucleic acids from individuals exhibiting signs and symptoms of a respiratory infection aids in the diagnosis of respiratory infection if used in conjunction with other clinical and epidemiological information. The results of this test should not be used as the sole basis for diagnosis, treatment, or other management decisions. Negative results in the setting of a respiratory illness may be due to infection with pathogens that are not detected by this test. Positive results do not rule out infection/co-infection with other organisms. The agent(s) detected by the FilmArray RP2.1 may not be the definite cause of disease. Additional testing (lab, imaging, etc.) may be necessary when evaluating a patient with possible respiratory tract infection. The FilmArray RP2.1 assay has FDA clearance for testing of CORONER TECHNICIAN swabs. The performance of additional specimen types has been assessed by the performing laboratory. The performance characteristics of this assay have been determined by [facility] Molecular Infectious Disease Laboratory. Current interpretive data was last revised on 21. us Gretchen Mclain MD LAB MICROBIOLOGY - GENERAL O RDERABLES Final Result [facility] Department [place] [address] * (ABNORMAL) CBC with auto differential (02/22/2024 8:42 PM ORACLE BUSINESS INTELLIGENCE DEVELOPER) [facility] Signature WBC 8.7 3.8 - 9.9 K/cumm Hgb 10.8(L) 11.9 - 15.5 g/dL [facility] Hct 35.5(L) 35.6 - 45.5 % [facility] Plt 224 150 - 400 K/cumm [facility] MPV 10.1 9.1 - 12.3 fL [facility] RBC 3.60(L) 3.90 - 5.20 M/cumm [facility] MCV 98.6(H) 81.3 - 96.4 fL [facility] MCH 30.0 27.1 - 33.3 pg [facility] MCHC 30.4(L) 32.3 - 35.7 g/dL [facility] RDW CV 14.7 11.1 - 14.9 % [facility] RDW SD 53.3(H) 35.7 - 48.1 fL [facility] NRBC abs 0.00 0.00 - 0.01 K/cumm [facility] Blood 02/22/2024 8:42 PM ORACLE BUSINESS INTELLIGENCE DEVELOPER 02/22/2024 9:27 PM ORACLE BUSINESS INTELLIGENCE DEVELOPER Gretchen Mclain MD LAB BLOOD ORDERABLES Final R esult [facility] [place] [address] * (ABNORMAL) aPTT (02/22/2024 8:42 PM ORACLE BUSINESS INTELLIGENCE DEVELOPER) aPTT 25(L) 28 - 38 sec Comment: Interpretive Data Heparin therapeutic range: 66.0 - 100.0 seconds. Range based on correlation with therapeutic heparin activity range of 0.3 - 0.7 Units/mL. Current interpretive data was last revised on 2022. Blood 02/22/2024 8:42 PM ORACLE BUSINESS INTELLIGENCE DEVELOPER 02/22/2024 9:23 PM ORACLE BUSINESS INTELLIGENCE DEVELOPER Gretchen Mclain MD LAB BLOOD ORDERABLES Final R esult [facility] [place] [address] * Protime-INR (02/22/2024 8:42 PM ORACLE BUSINESS INTELLIGENCE DEVELOPER) PT 10.4 9.7 - 13.0 sec INR 0.96 0.90 - 1.20 [facility] Comment: Interpretive data Oral anticoagulant therapeutic ranges: Venous thromboembolism prophylaxis or treatment: 2.0-3.0 CARDIOLOGY Standard range: 2.0-3.0 High-intensity range: 2.5-3.5 Refer to indication-specific guidelines for appropriate target ranges for prosthetic heart valve replacement. Current interpretive data was last revised on 2019. Blood 02/22/2024 8:42 PM ORACLE BUSINESS INTELLIGENCE DEVELOPER 02/22/2024 9:23 PM ORACLE BUSINESS INTELLIGENCE DEVELOPER Gretchen Mclain MD LAB BLOOD ORDERABLES Final R esult Performing Organization Address City/[facility]/ZIP Co de Phone Number [facility] [place] [address] * Type and screen (02/22/2024 8:42 PM ORACLE BUSINESS INTELLIGENCE DEVELOPER) Arpit, indirect Negative ABO Rh A Positive [facility] Blood 02/22/2024 8:42 PM ORACLE BUSINESS INTELLIGENCE DEVELOPER 02/22/2024 9:46 PM ORACLE BUSINESS INTELLIGENCE DEVELOPER Narrative [facility] - 02/22/2024 10:42 PM ORACLE BUSINESS INTELLIGENCE DEVELOPER Has the patient had Daratumumab or Isatuximab in the past 6 months?->Unknown Gretchen Mclain MD LAB BLOOD BANK TEST ORDERABL ES Final Result Performing Organization Address City/[facility]/ZIP Co de Phone Number [facility] [place] [address] * (ABNORMAL) T4, free (02/22/2024 8:42 PM ORACLE BUSINESS INTELLIGENCE DEVELOPER) Free T4 0.65(L) 0.90 - 1.70 ng/dL Blood 02/22/2024 8:42 PM ORACLE BUSINESS INTELLIGENCE DEVELOPER 02/22/2024 9:23 PM ORACLE BUSINESS INTELLIGENCE DEVELOPER Narrative [facility] - 02/22/2024 10:23 PM ORACLE BUSINESS INTELLIGENCE DEVELOPER This test was reflexed from a TSH result. us Gretchen Mclain MD LAB BLOOD ORDERABLES Edited Result - Final Performing Organization Address [facility] Co de Phone Number [facility] [place] [address] * Phosphorus (02/22/2024 8:42 PM ORACLE BUSINESS INTELLIGENCE DEVELOPER) Phosphorus, pl 4.3 2.3 - 4.5 mg/dL Blood 02/22/2024 8:42 PM ORACLE BUSINESS INTELLIGENCE DEVELOPER 02/22/2024 9:23 PM ORACLE BUSINESS INTELLIGENCE DEVELOPER us Gretchen Mclain MD LAB BLOOD ORDERABLES Final R esult Performing Organization Address [facility] Co de Phone Number [facility] Department [place] [address] * Magnesium (02/22/2024 8:42 PM ORACLE BUSINESS INTELLIGENCE DEVELOPER) Magnesium 2.2 1.4 - 2.5 mg/dL Blood 02/22/2024 8:42 PM ORACLE BUSINESS INTELLIGENCE DEVELOPER 02/22/2024 9:23 PM ORACLE BUSINESS INTELLIGENCE DEVELOPER us Gretchen Mclain MD LAB BLOOD ORDERABLES Final R esult Performing Organization Address [facility] Co de Phone Number [facility] [place] [address] * Vitamin B12 (02/22/2024 8:42 PM ORACLE BUSINESS INTELLIGENCE DEVELOPER) Vitamin B12 531 230 - 1,250 pg/mL Blood 02/22/2024 8:42 PM ORACLE BUSINESS INTELLIGENCE DEVELOPER 02/22/2024 9:23 PM ORACLE BUSINESS INTELLIGENCE DEVELOPER us Amena William MD LAB BLOOD ORDERABLES Fi nal Result [facility] [place] [address] * (ABNORMAL) Comprehensive metabolic panel (02/22/2024 8:42 PM ORACLE BUSINESS INTELLIGENCE DEVELOPER) Sodium 146(H) 135 - 145 mmol/L Potassium, pl 4.6 3.3 - 4.9 mmol/L [facility] Comment:Hemolyzed; Potassium value may be falsely elevated by as much as 0.3-0.5 mmol/L. Suggest redraw and reanalysis. Chloride 110 97 - 110 mmol/L [facility] CO2 27 22 - 32 mmol/L [facility] Anion gap 9 2 - 15 mmol/L [facility] BUN 47(H) 6 - 25 mg/dL [facility] Creatinine 1.98(H) 0.60 - 1.10 mg/dL [facility] Glucose 142 70 - 199 mg/dL [facility] Comment: Interpretive Data Fasting glucose >/= 126 mg/dl is diagnostic for diabetes. Fasting is defined as no caloric intake for at least 8 hours. Fasting glucose between 100 mg/dl to 125 mg/dl is diagnostic of prediabetes. In a patient with classic symptoms of hyperglycemia or hyperglycemic crisis, a random glucose >/= 200 mg/dl is diagnostic for diabetes. In the absence of unequivocal hyperglycemia, results should be confirmed by repeat testing. The classification and Diagnosis of Diabetes Diabetes Care 202; 46: S19-S40. Current interpretive data was last revised 2022. Calcium 9.0 8.5 - 10.3 mg/dL [facility] Bilirubin, total 0.2 0.1 - 1.2 mg/dL [facility] Protein, pl 7.0 6.5 - 8.5 g/dL [facility] Albumin 3.5 3.5 - 5.0 g/dL [facility] Alk phos 97 40 - 130 Units/L [facility] ALT 15 7 - 45 Units/L [facility] AST 24 10 - 45 Units/L [facility] Comment:Hemolyzed; result ma y be falsely elevated Blood 02/22/2024 8:42 PM ORACLE BUSINESS INTELLIGENCE DEVELOPER 02/22/2024 9:23 PM ORACLE BUSINESS INTELLIGENCE DEVELOPER us Gretchen Mclain MD LAB BLOOD ORDERABLES Final R esult [facility] Department [place] [address] * (ABNORMAL) eGFR (02/13/2024 9:23 AM ORACLE BUSINESS INTELLIGENCE DEVELOPER) eGFR 30(L) >=60 mL/min/1. 73 m2 Comment: Interpretive Data Reference Interval Normal >/= 90 mL/min/1.73m2 Mildly decreased* 60 - 89 mL/min/1.73m2 Mildly to moderately decreased 45 - 59 mL/min/1.73m2 Moderately to severely decreased 30 - 44 mL/min/1.73m2 Severely decreased 15 - 29 mL/min/1.73m2 Kidney Failure < 15 mL/min/1.73m2 *Relative to young adult level Estimated glomerular filtration rate is determined by the 2020 CKD-EPI equation recommended by the National Kidney Foundation (A Unifying Approach to GFR Estimation: Recommendations of the NKF-ASK Task Force on Reassessing the Inclusion of Race in Diagnosing Kidney Disease, JASN 2020). The CKD-EPI equation should not be used for patients with unstable renal function and has not been validated in children and those over 70. Current interpretive data was last reviewed 2020. Blood 02/13/2024 9:23 AM ORACLE BUSINESS INTELLIGENCE DEVELOPER 02/13/2024 10:32 AM ORACLE BUSINESS INTELLIGENCE DEVELOPER us Himanshu Cantu MD LAB BLOOD ORDERABLES Final Result [facility] ([place] 1 [facility] Department [place] [address] * (ABNORMAL) eGFR (02/13/2024 9:23 AM ORACLE BUSINESS INTELLIGENCE DEVELOPER) eGFR 35(L) >=60 mL/min/1. 73 m2 Comment: Interpretive Data Reference Interval Normal >/= 90 mL/min/1.73m2 Mildly decreased* 60 - 89 mL/min/1.73m2 Mildly to moderately decreased 45 - 59 mL/min/1.73m2 Moderately to severely decreased 30 - 44 mL/min/1.73m2 Severely decreased 15 - 29 mL/min/1.73m2 Kidney Failure < 15 mL/min/1.73m2 *Relative to young adult level Estimated glomerular filtration rate is determined by the 2020 CKD-EPI equation recommended by the National Kidney Foundation (A Unifying Approach to GFR Estimation: Recommendations of the NKF-ASK Task Force on Reassessing the Inclusion of Race in Diagnosing Kidney Disease, JASN 2020). The CKD-EPI equation should not be used for patients with unstable renal function and has not been validated in children and those over 70. Current interpretive data was last reviewed 2020. Blood 02/13/2024 9:23 AM ORACLE BUSINESS INTELLIGENCE DEVELOPER 02/13/2024 10:32 AM ORACLE BUSINESS INTELLIGENCE DEVELOPER Aiyana Baldwin NP LAB BLOOD ORDERABLES Final Result [facility] ([place]) 1 [facility] Department [place] [address] * Differential, auto (02/13/2024 9:23 AM ORACLE BUSINESS INTELLIGENCE DEVELOPER) Neutrophil abs 5.4 1.5 - 6.5 K/cumm Imm gran abs 0.0 0.0 - 0.1 K/cumm [facility] ([place]) Lymphocyte abs 1.3 0.8 - 3.3 K/cumm [facility] ([place]) Monocyte abs 0.5 0.2 - 0.8 K/cumm [facility] ([place]) Eosinophil abs 0.3 0.0 - 0.5 K/cumm [facility] ([place]) Basophil abs 0.0 0.0 - 0.1 K/cumm [facility] ([place]) Neutrophil pct 71.2 % [facility] ([place]) Comment: Interpretive Data Percent cell count reference ranges are not reported, since discordance with absolute values may lead to misinterpretation of CBC data. Current Interpretive Data was last revised on 2017. Imm gran pct 0.5 % [facility] ([place]) Comment: Interpretive Data Percent cell count reference ranges are not reported, since discordance with absolute values may lead to misinterpretation of CBC data. Current Interpretive Data was last revised on 2017. Lymphocyte pct 17.5 % [facility] ([place]) Comment: Interpretive Data Percent cell count reference ranges are not reported, since discordance with absolute values may lead to misinterpretation of CBC data. Current Interpretive Data was last revised on 2017. Monocyte pct 6.4 % [facility] ([place]) Comment: Interpretive Data Percent cell count reference ranges are not reported, since discordance with absolute values may lead to misinterpretation of CBC data. Current Interpretive Data was last revised on 2017. Eosinophil pct 3.9 % [facility] ([place]) Comment: Interpretive Data Percent cell count reference ranges are not reported, since discordance with absolute values may lead to misinterpretation of CBC data. Current Interpretive Data was last revised on 2017. Basophil pct 0.5 % [facility] ([place]) Comment: Interpretive Data Percent cell count reference ranges are not reported, since discordance with absolute values may lead to misinterpretation of CBC data. Current Interpretive Data was last revised on 2017. Blood 02/13/2024 9:23 AM ORACLE BUSINESS INTELLIGENCE DEVELOPER 02/13/2024 10:32 AM ORACLE BUSINESS INTELLIGENCE DEVELOPER Aiyana Baldwin NP LAB BLOOD ORDERABLES Final Result [facility] ([place]) 1 [facility] Department [place] [address] * Differential, auto (02/13/2024 9:23 AM ORACLE BUSINESS INTELLIGENCE DEVELOPER) Neutrophil abs 5.5 1.5 - 6.5 K/cumm Imm gran abs 0.0 0.0 - 0.1 K/cumm [facility] ([place]) Lymphocyte abs 1.4 0.8 - 3.3 K/cumm [facility] ([place]) Monocyte abs 0.5 0.2 - 0.8 K/cumm [facility] ([place]) Eosinophil abs 0.3 0.0 - 0.5 K/cumm [facility] ([place]) Basophil abs 0.1 0.0 - 0.1 K/cumm [facility] ([place]) Neutrophil pct 71.2 % [facility] ([place]) Comment: Interpretive Data Percent cell count reference ranges are not reported, since discordance with absolute values may lead to misinterpretation of CBC data. Current Interpretive Data was last revised on 2017. Imm gran pct 0.5 % [facility] ([place]) Comment: Interpretive Data Percent cell count reference ranges are not reported, since discordance with absolute values may lead to misinterpretation of CBC data. Current Interpretive Data was last revised on 2017. Lymphocyte pct 17.6 % [facility] ([place]) Comment: Interpretive Data Percent cell count reference ranges are not reported, since discordance with absolute values may lead to misinterpretation of CBC data. Current Interpretive Data was last revised on 2017. Monocyte pct 6.6 % [facility] ([place]) Comment: Interpretive Data Percent cell count reference ranges are not reported, since discordance with absolute values may lead to misinterpretation of CBC data. Current Interpretive Data was last revised on 2017. Eosinophil pct 3.5 % [facility] ([place]) Comment: Interpretive Data Percent cell count reference ranges are not reported, since discordance with absolute values may lead to misinterpretation of CBC data. Current Interpretive Data was last revised on 2017. Basophil pct 0.6 % [facility] ([place]) Comment: Interpretive Data Percent cell count reference ranges are not reported, since discordance with absolute values may lead to misinterpretation of CBC data. Current Interpretive Data was last revised on 2017. Blood 02/13/2024 9:23 AM ORACLE BUSINESS INTELLIGENCE DEVELOPER 02/13/2024 10:32 AM ORACLE BUSINESS INTELLIGENCE DEVELOPER us Himanshu Cantu MD LAB BLOOD ORDERABLES Final Result [facility] ([place]) 1 [facility] Department [place] [address] * (ABNORMAL) CBC with auto differential (02/13/2024 9:23 AM ORACLE BUSINESS INTELLIGENCE DEVELOPER) WBC 7.5 3.8 - 9.9 K/cumm Hgb 12.0 11.9 - 15.5 g/dL [facility] ([place]) Hct 38.8 35.6 - 45.5 % [facility] ([place]) Plt 255 150 - 400 K/cumm [facility] ([place]) MPV 10.2 9.1 - 12.3 fL [facility] ([place]) RBC 3.86(L) 3.90 - 5.20 M/cumm [facility] ([place]) MCV 100.5(H) 81.3 - 96.4 fL [facility] ([place]) MCH 31.1 27.1 - 33.3 pg [facility] ([place]) MCHC 30.9(L) 32.3 - 35.7 g/dL [facility] ([place]) RDW CV 14.6 11.1 - 14.9 % [facility] ([place]) RDW SD 54.0(H) 35.7 - 48.1 fL [facility] ([place]) NRBC abs 0.00 0.00 - 0.01 K/cumm [facility] ([place]) Blood 02/13/2024 9:23 AM ORACLE BUSINESS INTELLIGENCE DEVELOPER 02/13/2024 10:32 AM ORACLE BUSINESS INTELLIGENCE DEVELOPER Aiyana Baldwin CORONER TECHNICIAN LAB BLOOD ORDERABLES Final Result [facility] ([place]) 1 [facility] Department [place] [address] * (ABNORMAL) CBC with auto differential (02/13/2024 9:23 AM ORACLE BUSINESS INTELLIGENCE DEVELOPER) Pathologist [facility] [place] WBC 7.7 3.8 - 9.9 K/cumm Hgb 12.0 11.9 - 15.5 g/dL [facility] ([place]) Hct 39.8 35.6 - 45.5 % [facility] ([place]) Plt 253 150 - 400 K/cumm [facility] ([place]) MPV 9.9 9.1 - 12.3 fL [facility] ([place]) RBC 3.96 3.90 - 5.20 M/cumm [facility] ([place]) MCV 100.5(H) 81.3 - 96.4 fL [facility] ([place]) MCH 30.3 27.1 - 33.3 pg [facility] ([place]) MCHC 30.2(L) 32.3 - 35.7 g/dL [facility] ([place]) RDW CV 14.5 11.1 - 14.9 % [facility] ([place]) RDW SD 53.3(H) 35.7 - 48.1 fL [facility] ([place]) NRBC abs 0.00 0.00 - 0.01 K/cumm [facility] ([place]) Blood 02/13/2024 9:23 AM ORACLE BUSINESS INTELLIGENCE DEVELOPER 02/13/2024 10:32 AM ORACLE BUSINESS INTELLIGENCE DEVELOPER Himanshu Cantu MD LAB BLOOD ORDERABLES Final Result Performing Organization Address City/[facility]/ZIP Co de Phone Number [facility] ([place] 1 [facility] [place] [address] * (ABNORMAL) Vitamin D 25 hydroxy (02/13/2024 9:23 AM ORACLE BUSINESS INTELLIGENCE DEVELOPER) Vitamin D 25-OH 18(L) 30 - 80 ng/mL Blood 02/13/2024 9:23 AM ORACLE BUSINESS INTELLIGENCE DEVELOPER 02/13/2024 10:32 AM ORACLE BUSINESS INTELLIGENCE DEVELOPER Himanshu Cantu MD LAB BLOOD ORDERABLES Final Result [facility] ([place]) 1 [facility] [place] [address] * (ABNORMAL) Hemoglobin A1c (02/13/2024 9:23 AM ORACLE BUSINESS INTELLIGENCE DEVELOPER) Hgb A1C 7.6(H) 4.0 - 5.6 % Estimated Average Glucose 171 mg/dL [facility] ([place]) Comment: The ADA recommends reporting an estimated Average Glucose (eAG) with all Hemoglobin A1c results using the equation derived from a study of 507 normal and diabetic adults. Minority populations were underrepresented and children were not included. (Diabetes Care 31:4296-8038, 2008). The eAG is not equivalent to a fasting glucose. Blood 02/13/2024 9:23 AM ORACLE BUSINESS INTELLIGENCE DEVELOPER 02/13/2024 10:32 AM ORACLE BUSINESS INTELLIGENCE DEVELOPER Himanshu Cantu MD LAB BLOOD ORDERABLES Final Result [facility] ([place]) 1 [facility] Department [place] [address] * Lipid panel (02/13/2024 9:23 AM ORACLE BUSINESS INTELLIGENCE DEVELOPER) Cholesterol 141 30 - 199 mg/dL Comment: Interpretive Data Ages < or = 19 years Acceptable: <170 mg/dL Borderline high: 170-199 mg/dL High: >or= 200 mg/dL Ages > or = 20 years Desirable: <200 mg/dL Borderline high: 200-239 mg/dL High: >or= 240 mg/dL Literature References: 1. Expert Panel on Integrated Guidelines for Cardiovascular Health and Risk Reduction in Children and Adolescents. Pediatrics 2011;128:S213 2. NCEP Expert Panel. Circulation 2004;110:227 Current Interpretive Data was last revised on 2017. Triglycerides 118 <=149 mg/dL TRACY ANDERSON (JORGE) Comment: Interpretive Data Ages < or = 9 years Acceptable: <75 mg/dL Borderline high: 75-99 mg/dL High: >or= 100 mg/dL Ages 10 to 20 years Acceptable: <90 mg/dL Borderline high: 90-129 mg/dL High: >or= 130 mg/dL Ages > or = 20 years Desirable: <150 mg/dL Borderline high: 150-199 mg/dL High: 200-499 mg/dL Very high: >or= 499 mg/dL Literature References: 1. Expert Panel on Integrated Guidelines for Cardiovascular Health and Risk Reduction in Children and Adolescents. Pediatrics 2011;128:S213 2. NCEP Expert Panel. Circulation 2004;110:227 Current Interpretive Data was last revised on 2017. HDL 48 >=40 mg/dL TRACY HOLLOWAY H (JOR[place]) Comment: Interpretive Data Ages < or = 19 years Acceptable: >45 mg/dL Borderline low: 40-45 mg/dL Low: <40 mg/dL Ages > or = 20 years Desirable: >or= 60 mg/dL Low: <40 mg/dL Literature References: 1. Expert Panel on Integrated Guidelines for Cardiovascular Health and Risk Reduction in Children and Adolescents. Pediatrics 2011;128:S213 2. NCEP Expert Panel. Circulation 2004;110:227 Current Interpretive Data was last revised on 2017. LDL, calculated 72 <=129 mg/dL TRACY ANDERSON ([place]) Comment: Interpretive Data Ages < or = 19 years Acceptable: <110 mg/dL Borderline high: 110-129 mg/dL High: >or= 130 mg/dL Ages > or = 20 years Optimal: <100 mg/dL Near optimal: 100-129 mg/dL Borderline high: 130-159 mg/dL High: >160 mg/dL Calculated using the Husam LDL-C estimating equation. This equation was implemented on 2023. Prior to this date LDL-C was estimated using the Friedewald equation. Literature References: 1. Expert Panel on Integrated Guidelines for Cardiovascular Health and Risk Reduction in Children and Adolescents. Pediatrics 2011;128:S213 2. NCEP Expert Panel. Circulation 2004;110:227 3. Husam Whitmore et al. SHYAM Cardiol. 2019June 06;5(5):540-548. doi: 10.1001/[email or web address] Current Interpretive Data was last revised on 2023. Non-HDL Cholesterol 93 mg/dL TRACY ANDERSON ([place]) Comment: Interpretive Data Ages < or = 19 years Acceptable: <120 mg/dL Borderline high: 120-144 mg/dL High: >145 mg/dL Ages > or = 20 years When triglycerides are >200 mg/dL, Non-HDL cholesterol is a secondary target of therapy with treatment goals that are 30 mg/dL greater than the LDL cholesterol target. Literature References: 1. Expert Panel on Integrated Guidelines for Cardiovascular Health and Risk Reduction in Children and Adolescents. Pediatrics 2011;128:S213 2. NCEP Expert Panel. Circulation 2004;110:227 Current Interpretive Data was last revised on 2017. Chol/HDL ratio 3 KLARISSA ANDERSON ([place]GE) Blood 02/13/2024 9:23 AM ORACLE BUSINESS INTELLIGENCE DEVELOPER 02/13/2024 10:32 AM ORACLE BUSINESS INTELLIGENCE DEVELOPER us Himanshu Cantu MD LAB BLOOD ORDERABLES Final Result TRACY ANDERSON ([place]ORGE) 1 [facility] Department [place] [address] * (ABNORMAL) Comprehensive metabolic panel (02/13/2024 9:23 AM ORACLE BUSINESS INTELLIGENCE DEVELOPER) Sodium 145 135 - 145 mmol/L Potassium, pl 4.7 3.3 - 4.9 mmol/L [facility] ([facility]) Chloride 106 97 - 110 mmol/L [facility] ([place]) CO2 28 22 - 32 mmol/L [facility] ([place]) Anion gap 11 2 - 15 mmol/L [facility] ([place]) BUN 44(H) 6 - 25 mg/dL [facility] ([place]) Creatinine 1.85(H) 0.60 - 1.10 mg/dL [facility] ([place]) Glucose 140 70 - 199 mg/dL [facility] ([place]) Comment: Interpretive Data Fasting glucose >/= 126 mg/dl is diagnostic for diabetes. Fasting is defined as no caloric intake for at least 8 hours. Fasting glucose between 100 mg/dl to 125 mg/dl is diagnostic of prediabetes. In a patient with classic symptoms of hyperglycemia or hyperglycemic crisis, a random glucose >/= 200 mg/dl is diagnostic for diabetes. In the absence of unequivocal hyperglycemia, results should be confirmed by repeat testing. The classification and Diagnosis of Diabetes Diabetes Care 2021; 46: S19-S40. Current interpretive data was last revised 2022. Calcium 9.5 8.5 - 10.3 mg/dL [facility] ([place]) Bilirubin, total 0.3 0.1 - 1.2 mg/dL [facility] ([place]) Protein, pl 6.9 6.5 - 8.5 g/dL [facility] ([place]) Albumin 3.8 3.5 - 5.0 g/dL [facility] ([place]) Alk phos 104 40 - 130 Units/L [facility] ([place]) ALT 8 7 - 45 Units/L [facility] ([place]) AST 20 10 - 45 Units/L [facility] ([place]) Blood 02/13/2024 9:23 AM ORACLE BUSINESS INTELLIGENCE DEVELOPER 02/13/2024 10:32 AM ORACLE BUSINESS INTELLIGENCE DEVELOPER us Himanshu Cantu MD LAB BLOOD ORDERABLES Final Result TRACY ANDERSON ([place]) 1 [facility] Department [place] [address] * (ABNORMAL) Basic metabolic panel (02/13/2024 9:23 AM ORACLE BUSINESS INTELLIGENCE DEVELOPER) Sodium 141 135 - 145 mmol/L Potassium, pl 3.4 3.3 - 4.9 mmol/L [facility] ([place]) Chloride 101 97 - 110 mmol/L [facility] ([place]) CO2 24 22 - 32 mmol/L [facility] ([place]) Anion gap 16(H) 2 - 15 mmol/L [facility] ([place]) BUN 34(H) 6 - 25 mg/dL [facility] ([place]) Creatinine 1.62(H) 0.60 - 1.10 mg/dL [facility] ([place]) Glucose 162 70 - 199 mg/dL [facility] ([place]) Comment: Interpretive Data Fasting glucose >/= 126 mg/dl is diagnostic for diabetes. Fasting is defined as no caloric intake for at least 8 hours. Fasting glucose between 100 mg/dl to 125 mg/dl is diagnostic of prediabetes. In a patient with classic symptoms of hyperglycemia or hyperglycemic crisis, a random glucose >/= 200 mg/dl is diagnostic for diabetes. In the absence of unequivocal hyperglycemia, results should be confirmed by repeat testing. The classification and Diagnosis of Diabetes Diabetes Care 2021; 46: S19-S40. Current interpretive data was last revised 2022. Calcium 9.4 8.5 - 10.3 mg/dL [facility] ([place]) Blood 02/13/2024 9:23 AM ORACLE BUSINESS INTELLIGENCE DEVELOPER 02/13/2024 10:32 AM ORACLE BUSINESS INTELLIGENCE DEVELOPER us Aiyana Baldwin NP LAB BLOOD ORDERABLES Final Result TRACY ANDERSON ([place]OR[place]) 1 [facility] Department [place] [address] * LEFT HEART CATHETERIZATION WITH CORONARY ANGIOGRAPHY AND WITH AND WITHOUT LEFT VENTRICULOGRAM (02/06/2024 9:20 AM ORACLE BUSINESS INTELLIGENCE DEVELOPER) Anatomical Region Laterality Modality X-Ray Angiograph y Impressions 02/06/2024 10:26 AM ORACLE BUSINESS INTELLIGENCE DEVELOPER Severe InStent restenosis of a recanalized stents of the diagonal TR Band right radial artery THERAPEUTIC RECOMMENDATIONS: Continue aggressive medical therapy and risk factor modification TR band per protocol Patient has recanalized stents to her diagonal and is a very large vessel larger than the LAD. I would favor revascularization like with drug coated balloon. Given her chronic kidney disease we elected for her to return for staged PCI. I was present during the entire procedure and personally dictated or confirmed the above report. Davi Carvajal MD Narrative 02/06/2024 10:26 AM ORACLE BUSINESS INTELLIGENCE DEVELOPER Table formatting from the original result was not included. Procedure: CORONARY ANGIOGRAM / PERCUTANEOUS CORONARY INTERVENTION Patient: Abigail Trivedi is a 63 y.o. female : 1960 MR number: [id number] Date of Service: 02/06/2024 Pigment Grinder: Davi Carvajal MD Fellow: Carrol Brownlee MD Fellow: Abdon Quijano MD Referring physician: julissa Mclain MD INDICATION: Stable angina CCS class 3 PATIENT CLINICAL PROFILE: Abigail Trivedi is a 63 y.o. female with a history of Ischemic cardiomyopathy EF of 40% with prior PCI and known coronary artery disease presents for repeat heart catheterization given progressive chest pressure and tightness over the last 6 weeks along with dyspnea. PROCEDURE: The risks, benefits and alternatives of the procedures and moderate sedation were explained to the patient and informed consent was obtained. The patient was brought to the tin can laborer and placed on the table Bilateral groins and the right radial artery were prepped and draped in the usual sterile fashion. The right radial artery site was infiltrated with 2% lidocaine. I provided direct face to face monitoring of intravenous conscious sedation which was administered using Fentanyl and Versed by an independently certified nurse for a total of 30 minutes. The vessel was accessed using Angiocath needle and a 5/6 F Terumo glidesheath was placed without difficulty into the vessel. IV vasodilators were administered and heparin was administered when the catheter was placed in the ascending aorta. Left Coronary Artery Angiogram was performed using a 5 Fr xbLAD 3.0 Catheter. Right Coronary Artery Angiogram was performed using a 5 Fr Jose Guadalupe Catheter. Left Ventricular Hemodynamics were measured using jose guadalupe catheter, no left ventriculogram was done. At the end of the procedure, arteriotomy was successfully closed and hemostasis achieved by a TR band placement. Patient was transferred to the holding area in stable condition. There were no apparent complications. RESULTS: Hemodynamics: Left ventricular blood pressure was 149/30mmhg. There was no gradient on pull back across the aortic valve Coronary Arteriography: Left main coronary: Left main coronary is a large vessel supplies an LAD and circumflex. There is some mild plaquing the distal left main but no severe disease is present Left Anterior Decending: Left anterior descending artery is a large vessel. It then bifurcates into a very large diagonal that is actually a dual LAD system. The LAD itself is intra myocardial and gives off septal branches. It has diffuse disease throughout its portion. The stents that were previously 100% occluded have now recanalized and there are serial 80% lesions with normal flow into the diagonal branch. The diagonal branches quite large. Left Circumflex: Circumflex is a moderate-sized vessel that supplies several obtuse marginal vessels. There is diffuse disease throughout with small vessels but no severe stenoses are present. Right Coronary Artery: Right coronary artery is a very large dominant vessel supplies a large PLV and PDA branch. There is some mild plaquing at the PDA PLV bifurcation that is unchanged from prior. There are no other severe lesions present. COMPLICATIONS: None DIAGNOSTIC Aiyana Baldwin CORONER TECHNICIAN CV CARDIAC CATH PROCEDURES Final Result * (ABNORMAL) POCT Activated clotting time, low range (02/06/2024 9:18 AM ORACLE BUSINESS INTELLIGENCE DEVELOPER) ACT 211(H) 123 - 168 sec POC Performer [id number] [facility] POC Device Number [id number] [facility] Blood 02/06/2024 9:18 AM ORACLE BUSINESS INTELLIGENCE DEVELOPER 02/06/2024 9:18 AM ORACLE BUSINESS INTELLIGENCE DEVELOPER Davi Carvajal MD LAB POCT ORDERABLES - DEVICE Final Result [facility] Department [place] [address] * POCT glucose (02/06/2024 7:40 AM ORACLE BUSINESS INTELLIGENCE DEVELOPER) Pathologist [facility] [place] Glucose, POC 145 70 - 199 mg/dL Blood 02/06/2024 7:40 AM ORACLE BUSINESS INTELLIGENCE DEVELOPER 02/06/2024 7:40 AM ORACLE BUSINESS INTELLIGENCE DEVELOPER us Davi aCrvajal MD LAB POCT ORDERABLES - DEVICE Final Result Performing Organization Address [facility] de Phone Number [facility] Department [place] [address] * ECG 12 lead (02/06/2024 7:14 AM ORACLE BUSINESS INTELLIGENCE DEVELOPER) [facility] Ventricular Rate EKG/Min 66 BPM [facility] Atrial Rate 66 BPM [facility] DC-Interval (MSEC) 188 ms [facility] QRS-Interval (MSEC) 148 ms [facility] QT-Interval (MSEC) 470 ms [facility] QTc 492 ms [facility] P [place] 60 degrees [facility] R [place] 17 degrees [facility] T [place] 83 degrees [facility] Diagnosis Normal sinus rhythm Left bundle branch block Abnormal ECG When compared with ECG of 23-APR-2019 07:15, No significant change was found Confirmed by KANDACE GREY M.D ([id number]) on 02/13/2024 8:51:44 AM [facility] 02/06/2024 7:14 AM ORACLE BUSINESS INTELLIGENCE DEVELOPER 02/13/2024 8:51 AM ORACLE BUSINESS INTELLIGENCE DEVELOPER us Davi Carvajal MD ECG ORDERABLES Final Result Performing Organization Address [facility] Co de Phone Number [facility] * (ABNORMAL) eGFR (02/06/2024 6:50 AM ORACLE BUSINESS INTELLIGENCE DEVELOPER) Pathologist [facility] eGFR 27(L) >=60 mL/min/1. 73 m2 Comment: Interpretive Data Reference Interval Normal >/= 90 mL/min/1.73m2 Mildly decreased* 60 - 89 mL/min/1.73m2 Mildly to moderately decreased 45 - 59 mL/min/1.73m2 Moderately to severely decreased 30 - 44 mL/min/1.73m2 Severely decreased 15 - 29 mL/min/1.73m2 Kidney Failure < 15 mL/min/1.73m2 *Relative to young adult level Estimated glomerular filtration rate is determined by the 2020 CKD-EPI equation recommended by the National Kidney Foundation (A Unifying Approach to GFR Estimation: Recommendations of the NKF-ASK Task Force on Reassessing the Inclusion of Race in Diagnosing Kidney Disease, JASN 2020). The CKD-EPI equation should not be used for patients with unstable renal function and has not been validated in children and those over 70. Current interpretive data was last reviewed 2020. Blood 02/06/2024 6:50 AM ORACLE BUSINESS INTELLIGENCE DEVELOPER 02/06/2024 8:22 AM ORACLE BUSINESS INTELLIGENCE DEVELOPER Davi Carvajal MD LAB BLOOD ORDERABLES Final R esult [facility] Department [place] [address] * (ABNORMAL) Basic metabolic panel (02/06/2024 6:50 AM ORACLE BUSINESS INTELLIGENCE DEVELOPER) Sodium 148(H) 135 - 145 mmol/L Potassium, pl 4.1 3.3 - 4.9 mmol/L [facility] Chloride 106 97 - 110 mmol/L [facility] CO2 29 22 - 32 mmol/L [facility] Anion gap 13 2 - 15 mmol/L [facility] BUN 53(H) 6 - 25 mg/dL [facility] Creatinine 1.99(H) 0.60 - 1.10 mg/dL [facility] Glucose 153 70 - 199 mg/dL [facility] Comment: Interpretive Data Fasting glucose >/= 126 mg/dl is diagnostic for diabetes. Fasting is defined as no caloric intake for at least 8 hours. Fasting glucose between 100 mg/dl to 125 mg/dl is diagnostic of prediabetes. In a patient with classic symptoms of hyperglycemia or hyperglycemic crisis, a random glucose >/= 200 mg/dl is diagnostic for diabetes. In the absence of unequivocal hyperglycemia, results should be confirmed by repeat testing. The classification and Diagnosis of Diabetes Diabetes Care 202; 46: S19-S40. Current interpretive data was last revised 2022. Calcium 9.2 8.5 - 10.3 mg/dL [facility] MARCH Blood 02/06/2024 6:50 AM ORACLE BUSINESS INTELLIGENCE DEVELOPER 02/06/2024 8:13 AM ORACLE BUSINESS INTELLIGENCE DEVELOPER us Davi Carvajal MD LAB BLOOD ORDERABLES Final R esult TRACY RODRIGUEZ [facility] Department [place] [address] * (ABNORMAL) eGFR (02/01/2024 12:36 PM ORACLE BUSINESS INTELLIGENCE DEVELOPER) eGFR 25(L) >=60 mL/min/1. 73 m2 Comment: Interpretive Data Reference Interval Normal >/= 90 mL/min/1.73m2 Mildly decreased* 60 - 89 mL/min/1.73m2 Mildly to moderately decreased 45 - 59 mL/min/1.73m2 Moderately to severely decreased 30 - 44 mL/min/1.73m2 Severely decreased 15 - 29 mL/min/1.73m2 Kidney Failure < 15 mL/min/1.73m2 *Relative to young adult level Estimated glomerular filtration rate is determined by the 2020 CKD-EPI equation recommended by the National Kidney Foundation (A Unifying Approach to GFR Estimation: Recommendations of the NKF-ASK Task Force on Reassessing the Inclusion of Race in Diagnosing Kidney Disease, JASN 2020). The CKD-EPI equation should not be used for patients with unstable renal function and has not been validated in children and those over 70. Current interpretive data was last reviewed 2020. Blood 02/01/2024 12:3 6 PM ORACLE BUSINESS INTELLIGENCE DEVELOPER 02/01/2024 1:38 PM ORACLE BUSINESS INTELLIGENCE DEVELOPER us Gretchen Mclain MD LAB BLOOD ORDERABLES Final R esult [facility] ([place]) 1 [facility] Department [place] [address] * Differential, auto (02/01/2024 12:36 PM ORACLE BUSINESS INTELLIGENCE DEVELOPER) Neutrophil abs 6.3 1.5 - 6.5 K/cumm Imm gran abs 0.0 0.0 - 0.1 K/cumm [facility] ([place]) Lymphocyte abs 1.5 0.8 - 3.3 K/cumm [facility] ([place]) Monocyte abs 0.5 0.2 - 0.8 K/cumm [facility] ([place]) Eosinophil abs 0.3 0.0 - 0.5 K/cumm [facility] ([place]) Basophil abs 0.1 0.0 - 0.1 K/cumm [facility] ([place]) Neutrophil pct 72.3 % [facility] ([place]) Comment: Interpretive Data Percent cell count reference ranges are not reported, since discordance with absolute values may lead to misinterpretation of CBC data. Current Interpretive Data was last revised on 2017. Imm gran pct 0.5 % [facility] ([place]) Comment: Interpretive Data Percent cell count reference ranges are not reported, since discordance with absolute values may lead to misinterpretation of CBC data. Current Interpretive Data was last revised on 2017. Lymphocyte pct 17.2 % [facility] ([place]) Comment: Interpretive Data Percent cell count reference ranges are not reported, since discordance with absolute values may lead to misinterpretation of CBC data. Current Interpretive Data was last revised on 2017. Monocyte pct 6.2 % [facility] ([place]) Comment: Interpretive Data Percent cell count reference ranges are not reported, since discordance with absolute values may lead to misinterpretation of CBC data. Current Interpretive Data was last revised on 2017. Eosinophil pct 3.2 % [facility] ([place]) Comment: Interpretive Data Percent cell count reference ranges are not reported, since discordance with absolute values may lead to misinterpretation of CBC data. Current Interpretive Data was last revised on 2017. Basophil pct 0.6 % [facility] ([place]) Comment: Interpretive Data Percent cell count reference ranges are not reported, since discordance with absolute values may lead to misinterpretation of CBC data. Current Interpretive Data was last revised on 2017. Blood 02/01/2024 12:3 6 PM ORACLE BUSINESS INTELLIGENCE DEVELOPER 02/01/2024 1:38 PM ORACLE BUSINESS INTELLIGENCE DEVELOPER Gretchen Mclain MD LAB BLOOD ORDERABLES Final R esult [facility] ([place]) 1 [facility] [employer] [place] [address] * (ABNORMAL) CBC with auto differential (02/01/2024 12:36 PM ORACLE BUSINESS INTELLIGENCE DEVELOPER) WBC 8.8 3.8 - 9.9 K/cumm Hgb 11.5(L) 11.9 - 15.5 g/dL [facility] ([place]) Hct 38.0 35.6 - 45.5 % [facility] ([place]) Plt 231 150 - 400 K/cumm [facility] ([place]) MPV 10.0 9.1 - 12.3 fL [facility] ([place]) RBC 3.73(L) 3.90 - 5.20 M/cumm [facility] ([place]) MCV 101.9(H) 81.3 - 96.4 fL [facility] ([place]) MCH 30.8 27.1 - 33.3 pg [facility] ([place]) MCHC 30.3(L) 32.3 - 35.7 g/dL [facility] ([place]) RDW CV 14.7 11.1 - 14.9 % [facility] ([place]) RDW SD 55.5(H) 35.7 - 48.1 fL [facility] ([place]) NRBC abs 0.00 0.00 - 0.01 K/cumm [facility] ([place]) Blood 02/01/2024 12:3 6 PM ORACLE BUSINESS INTELLIGENCE DEVELOPER 02/01/2024 1:38 PM ORACLE BUSINESS INTELLIGENCE DEVELOPER Gretchen Mclain MD LAB BLOOD ORDERABLES Final R esult [facility] ([place]) [address] Department [place] [address] * (ABNORMAL) Basic metabolic panel (02/01/2024 12:36 PM ORACLE BUSINESS INTELLIGENCE DEVELOPER) Pathologist [facility] [place] Sodium 142 135 - 145 mmol/L Potassium, pl 5.2(H) 3.3 - 4.9 mmol/L [facility] ([place]) Chloride 104 97 - 110 mmol/L [facility] ([place] CO2 24 22 - 32 mmol/L [facility] ([place]) Anion gap 14 2 - 15 mmol/L [facility] ([place]) BUN 60(H) 6 - 25 mg/dL [facility] ([place]) Creatinine 2.18(H) 0.60 - 1.10 mg/dL [facility] ([place]) Glucose 143 70 - 199 mg/dL [facility] ([place]) Comment: Interpretive Data Fasting glucose >/= 126 mg/dl is diagnostic for diabetes. Fasting is defined as no caloric intake for at least 8 hours. Fasting glucose between 100 mg/dl to 125 mg/dl is diagnostic of prediabetes. In a patient with classic symptoms of hyperglycemia or hyperglycemic crisis, a random glucose >/= 200 mg/dl is diagnostic for diabetes. In the absence of unequivocal hyperglycemia, results should be confirmed by repeat testing. The classification and Diagnosis of Diabetes Diabetes Care 2021; 46: S19-S40. Current interpretive data was last revised 2022. Calcium 9.5 8.5 - 10.3 mg/dL [facility] ([place]) Blood 02/01/2024 12:3 6 PM ORACLE BUSINESS INTELLIGENCE DEVELOPER 02/01/2024 1:38 PM ORACLE BUSINESS INTELLIGENCE DEVELOPER us Gretchen Mclain MD LAB BLOOD ORDERABLES Final R esult TRACY ANDERSON ([place]) 1 [facility] Department [place] [address] * POC Influenza A/B, COVID-19 antigen (01/25/2024 4:17 PM ORACLE BUSINESS INTELLIGENCE DEVELOPER) Pathologist [facility] [place] Influenza A Ag, POC Negative Negative [facility] Influenza B Ag, POC Negative Negative [facility] COVID-19 Ag POC Presumptive Negative Presumptive Negative, Invalid [facility] Nasal 01/25/2024 4:17 PM ORACLE BUSINESS INTELLIGENCE DEVELOPER Loyda Wetzel CORONER TECHNICIAN POINT OF CARE TEST ORDERABL ES Final Result Performing Organization Address City/[facility]/ZIP Co de Phone Number [facility] ED[facility] * (ABNORMAL) eGFR (01/17/2024 3:16 PM ORACLE BUSINESS INTELLIGENCE DEVELOPER) eGFR 29(L) >=60 mL/min/1. 73 m2 Comment: Interpretive Data Reference Interval Normal >/= 90 mL/min/1.73m2 Mildly decreased* 60 - 89 mL/min/1.73m2 Mildly to moderately decreased 45 - 59 mL/min/1.73m2 Moderately to severely decreased 30 - 44 mL/min/1.73m2 Severely decreased 15 - 29 mL/min/1.73m2 Kidney Failure < 15 mL/min/1.73m2 *Relative to young adult level Estimated glomerular filtration rate is determined by the 2020 CKD-EPI equation recommended by the National Kidney Foundation (A Unifying Approach to GFR Estimation: Recommendations of the NKF-ASK Task Force on Reassessing the Inclusion of Race in Diagnosing Kidney Disease, JASN 2020). The CKD-EPI equation should not be used for patients with unstable renal function and has not been validated in children and those over 70. Current interpretive data was last reviewed 2020. Blood 01/17/2024 3:16 PM ORACLE BUSINESS INTELLIGENCE DEVELOPER 01/17/2024 9:06 PM ORACLE BUSINESS INTELLIGENCE DEVELOPER Aiyana Baldwin CORONER TECHNICIAN LAB BLOOD ORDERABLES Final Result TRACY REILLY [id number] [address] Department [place] [address] * Differential, auto (01/17/2024 3:16 PM ORACLE BUSINESS INTELLIGENCE DEVELOPER) Neutrophil abs 5.7 1.5 - 6.5 K/cumm Imm gran abs 0.0 0.0 - 0.1 K/cumm [facility] Lymphocyte abs 1.7 0.8 - 3.3 K/cumm [facility] Monocyte abs 0.7 0.2 - 0.8 K/cumm [facility] Eosinophil abs 0.3 0.0 - 0.5 K/cumm [facility] Basophil abs 0.1 0.0 - 0.1 K/cumm [facility] Neutrophil pct 67.4 % [facility] Comment: Interpretive Data Percent cell count reference ranges are not reported, since discordance with absolute values may lead to misinterpretation of CBC data. Current Interpretive Data was last revised on 2017. Imm gran pct 0.4 % [facility] Comment: Interpretive Data Percent cell count reference ranges are not reported, since discordance with absolute values may lead to misinterpretation of CBC data. Current Interpretive Data was last revised on 2017. Lymphocyte pct 20.1 % [facility] Comment: Interpretive Data Percent cell count reference ranges are not reported, since discordance with absolute values may lead to misinterpretation of CBC data. Current Interpretive Data was last revised on 2017. Monocyte pct 7.9 % [facility] Comment: Interpretive Data Percent cell count reference ranges are not reported, since discordance with absolute values may lead to misinterpretation of CBC data. Current Interpretive Data was last revised on 2017. Eosinophil pct 3.5 % [facility] Comment: Interpretive Data Percent cell count reference ranges are not reported, since discordance with absolute values may lead to misinterpretation of CBC data. Current Interpretive Data was last revised on 2017. Basophil pct 0.7 % [facility] Comment: Interpretive Data Percent cell count reference ranges are not reported, since discordance with absolute values may lead to misinterpretation of CBC data. Current Interpretive Data was last revised on 2017. Blood 01/17/2024 3:16 PM ORACLE BUSINESS INTELLIGENCE DEVELOPER 01/17/2024 8:50 PM ORACLE BUSINESS INTELLIGENCE DEVELOPER Aiyana Baldwin NP LAB BLOOD ORDERABLES Final Result [address] [address] Department [place] [address] * (ABNORMAL) Pro B-type natriuretic peptide (01/17/2024 3:16 PM ORACLE BUSINESS INTELLIGENCE DEVELOPER) NT-proBNP 811(H) <=300 pg/mL Comment: Interpretive Comments: A. Dyspnea in Acute Care Setting All Ages: < 300 pg/ml, acute heart failure unlikely. < 50 yrs: 300 - 450 pg/ml, further investigation warranted. > 450 pg/ml, acute heart failure likely. 50 - 74 yrs: 300 - 900 pg/ml, further investigation warranted. > 900 pg/ml, acute heart failure likely . > or = 75 yrs: 450 - 1800 pg/ml, further investigation warranted. > 1800 pg/ml, acute heart failure likely. B. Non-acute Setting < 75 yrs < 125 pg/ml, rules out heart failure. > or = 125 pg/ml, further investigation warranted. > or = 75 yrs < 450 pg/ml, rules out heart failure. > or = 450 pg/ml, further investigation warranted. - Knowledge of each individual patient's NT-proBNP range may be more useful than using similar cut-points for every patient. Please note that marked elevations in NT-proBNP levels may be observed in state other than Left Ventricular Congestive Failure, including: acute coronary syndromes, right heart strain/failure (including pulmonary embolism and cor pulmonale), critical illness, renal failure, as well as advanced age. - References: 1. Hailee PINO et.al. Eur Heart J. 2006:27:330-337. 2. Etelvina RW, Krystina AM. J. AM Vinicio Cardiol: Cardiovasc Imag. 2009;2: 216- 225. Interpretive Data Last Revised Date: 2017. Blood 01/17/2024 3:16 PM ORACLE BUSINESS INTELLIGENCE DEVELOPER 01/17/2024 8:50 PM ORACLE BUSINESS INTELLIGENCE DEVELOPER us Aiyana Baldwin NP LAB BLOOD ORDERABLES Final Result TRACY REILLY [id number] Department [place] [address] * (ABNORMAL) CBC with auto differential (01/17/2024 3:16 PM ORACLE BUSINESS INTELLIGENCE DEVELOPER) Pathologist [facility] WBC 8.5 3.8 - 9.9 K/cumm Hgb 12.0 11.9 - 15.5 g/dL [facility] CH Hct 40.9 35.6 - 45.5 % [facility] CH Plt 319 150 - 400 K/cumm [facility] CH MPV 9.9 9.1 - 12.3 fL [facility] RBC 4.04 3.90 - 5.20 M/cumm [facility] CH MCV 101.2(H) 81.3 - 96.4 fL [facility] MCH 29.7 27.1 - 33.3 pg [facility] MCHC 29.3(L) 32.3 - 35.7 g/dL [facility] CH RDW CV 14.8 11.1 - 14.9 % [facility] CH RDW SD 55.4(H) 35.7 - 48.1 fL [facility] NRBC abs 0.00 0.00 - 0.01 K/cumm [facility] Blood 01/17/2024 3:16 PM ORACLE BUSINESS INTELLIGENCE DEVELOPER 01/17/2024 8:50 PM ORACLE BUSINESS INTELLIGENCE DEVELOPER Aiyana Baldwin CORONER TECHNICIAN LAB BLOOD ORDERABLES Final Result [facility] [address] Department [place] [address] * (ABNORMAL) Basic metabolic panel (01/17/2024 3:16 PM ORACLE BUSINESS INTELLIGENCE DEVELOPER) Sodium 144 135 - 145 mmol/L Potassium, pl 5.1(H) 3.3 - 4.9 mmol/L [facility] Chloride 103 97 - 110 mmol/L [facility] CO2 27 22 - 32 mmol/L [facility] Anion gap 14 2 - 15 mmol/L [facility] BUN 48(H) 6 - 25 mg/dL [facility] Creatinine 1.90(H) 0.60 - 1.10 mg/dL [facility] Glucose 119 70 - 199 mg/dL [facility] Comment: Interpretive Data Fasting glucose >/= 126 mg/dl is diagnostic for diabetes. Fasting is defined as no caloric intake for at least 8 hours. Fasting glucose between 100 mg/dl to 125 mg/dl is diagnostic of prediabetes. In a patient with classic symptoms of hyperglycemia or hyperglycemic crisis, a random glucose >/= 200 mg/dl is diagnostic for diabetes. In the absence of unequivocal hyperglycemia, results should be confirmed by repeat testing. The classification and Diagnosis of Diabetes Diabetes Care 2021; 46: S19-S40. Current interpretive data was last revised 2022. Calcium 9.9 8.5 - 10.3 mg/dL [facility] Blood 01/17/2024 3:16 PM ORACLE BUSINESS INTELLIGENCE DEVELOPER 01/17/2024 8:50 PM ORACLE BUSINESS INTELLIGENCE DEVELOPER us Aiyana Baldwin NP LAB BLOOD ORDERABLES Final Result Performing Organization Address City/[facility]/ZIP Co de Phone Number [address] Department [place] [address] * (ABNORMAL) Albumin Creatinine Ratio, Urine (05/10/2023 11:04 AM CDT) Albumin Ur 43.0 mg/L Comment: Interpretive Data No reference range established. Current interpretive data was last revised 2018. Testing performed by: [address] [address] Creatinine Ur 53.3 mg/dL [facility] ANDERSON ([place]) Comment: Interpretive Data No reference range established. Current interpretive data was last revised 2018. Testing performed by: [address] [address] Albumin Creatinine Ratio, Ur 81(H) 1 - 29 mg/g [facility] ([place]) Comment:Testing performed by : [address] [address] Urine 05/10/2023 11:0 4 AM CDT 05/10/2023 6:37 PM CDT Himanshu Cantu MD LAB URINE ORDERABLES Final Result [facility] ([place]) 1 [facility] Department [place] [address] * DIABETES EYE EXAM (09/15/2021) us Historical Provider HEALTH MAINTENANCE Final Result * Dexa Axial Skeleton Bone Density 1 or 2 Site (06/29/2020 9:15 AM CDT) Anatomical Region Laterality Modality Body N/A Other 06/29/2020 9:43 AM CDT Narrative 06/29/2020 9:44 AM CDT EXAM DESCRIPTION: DEXA AXIAL SKELETON BONE DENSITY 1 OR MORE SITES REASON FOR STUDY: 60 year old postmenopausal white female with given history of screening. Medical Charge Entry Specialist/Model: [employer] (S/N [id number]) CLINICAL INFORMATION: Current height: 62 inches Maximum height: 62 inches Weight: 262 pounds Risk factors: None. Has taken vitamin-D does not perform regular weight-bearing exercise. Regularly consumes dairy products. Drinks caffeinated beverages. COMPARISON: None available. FINDINGS: AP LUMBAR SPINE L1-L4: Total BMD is 0.999 g/cm2 T-score is -0.4 LEFT HIP: Total BMD is 0.976 g/cm2 T-score is 0.3 Femoral neck BMD is 0.796 g/cm2 T-score is -0.5 IMPRESSION: Normal bone mineral density. REFERENCE: Bone mineral density: Normal (T-score above or = -1.0) Low bone mass (T-score between -1.0 and -2.5) replaces the previously used term osteopenia Osteoporosis (T-score = or below -2.5) Medical evaluation for secondary causes of low bone mineral density may be appropriate. FRAX is a World Health Organization validated fracture risk assessment tool that calculates a person's 10 year probability of a major osteoporosis related fracture and hip fracture. According to the National Osteoporosis Foundation guidelines, postmenopausal women and men age 50 or older with low bone mass and a 10 year probability of a major osteoporosis related fracture = or greater than 20% or a 10 year probability of a hip fracture = or greater than 3% should be considered for treatment. For further information, including treatment recommendations, please refer to the 2013 ISCD Official Positions (http://www.iscd.org) and the NOF's Clinician's Guide to Prevention and Treatment of Osteoporosis (http://www.nof.org/professionals/clinical-guidelines) THIS IS AN ELECTRONICALLY VERIFIED FINAL REPORT 06/29/2020 9:44 AM - Electronically signed by John Feldman M.D. RB: CRISTY Report ID: [id number] Reading Location: [id number] Procedure Note John Feldman MD - 06/29/2020 EXAM DESCRIPTION: DEXA AXIAL SKELETON BONE DENSITY 1 OR MORE SITES REASON FOR STUDY: 60 year old postmenopausal white female with given history of screening. Medical Charge Entry Specialist/Model: [employer] (S/N [id number]) CLINICAL INFORMATION: Current height: 62 inches Maximum height: 62 inches Weight: 262 pounds Risk factors: None. Has taken vitamin-D does not perform regular weight-bearing exercise. Regularly consumes dairy products. Drinks caffeinated beverages. COMPARISON: None available. FINDINGS: AP LUMBAR SPINE L1-L4: Total BMD is 0.999 g/cm2 T-score is -0.4 LEFT HIP: Total BMD is 0.976 g/cm2 T-score is 0.3 Femoral neck BMD is 0.796 g/cm2 T-score is -0.5 IMPRESSION: Normal bone mineral density. REFERENCE: Bone mineral density: Normal (T-score above or = -1.0) Low bone mass (T-score between -1.0 and -2.5) replaces thepreviously used term osteopenia Osteoporosis (T-score = or below -2.5) Medical evaluation for secondary causes of low bone mineral density may be appropriate. FRAX is a World Health Organization validated fracture risk assessmenttool that calculates a person's 10 year probability of a major osteoporosisrelated fracture and hip fracture. According to the National OsteoporosisFoundation guidelines, postmenopausal women and men age 50 or older with low bonemass and a 10 year probability of a major osteoporosis related fracture = or greater than 20% or a 10 year probability of a hip fracture = or greaterthan 3% should be considered for treatment. For further information, including treatment recommendations, please referto the 2013 ISCD Official Positions (http://www.iscd.org) and the NOF's Clinician's Guide to Prevention and Treatment of Osteoporosis (http://www.nof.org/professionals/clinical-guidelines) THIS IS AN ELECTRONICALLY VERIFIED FINAL REPORT 06/29/2020 9:44 AM - Electronically signed by John Feldman M.D. RB: CRISTY Report ID: [id number] Reading Location: [place] [address] Inga Woodard CORONER TECHNICIAN IMG DXA PROCEDURES Final Result * Screening Mammogram Bilateral W Wes (06/29/2020 9:05 AM CDT) Anatomical Region Laterality Modality Breast Bilateral Mammography 06/29/2020 11:3 2 AM CDT Impressions 06/29/2020 11:32 AM CDT There is no mammographic evidence of malignancy. A 1 year screening mammogram is recommended. BI-RADS: 1 - Negative. The patient will be entered into a reminder system with a target due date of 1 year for her next mammogram. Electronically signed by: Paige Wiley MD Narrative 06/29/2020 11:32 AM CDT EXAMINATION: SCREENING MAMMOGRAM BILATERAL W WES ORDERING HEALTHCARE PROVIDER: INGA WOODARD HISTORY: Routine screening mammography. COMPARISON: 02/04/2019 and 07/02/2015 TECHNIQUE: CC and MLO views of the bilateral breasts were obtained with digital technique using breast tomosynthesis with C view. Computer aided detection was utilized. FINDINGS: DENSITY: The tissue of the bilateral breasts is almost entirely fatty. BREASTS: There are no suspicious masses, suspicious calcifications, or other suspicious findings in either breast. There has been no suspicious interval change. Inga Woodard NP IMG MAMMO PROCEDURES Dana l Result * Pap Only (05/06/2020 2:54 PM CDT) CLINICAL INFORMATION: [facility] Comment:Information not prov ided LMP [facility] Comment:PM Previous Pap [facility] Comment:INFORMATION NOT PROV IDED Prev. Bx [facility] Comment:INFORMATION NOT PROV IDED SOURCE: [facility] Comment:Cervix, Endocervix Pap, specimen adequacy [facility] Comment: Satisfactory for evaluation. Endocervical/transformation zone component absent. HPV [facility]p [facility] Comment:Negative for intraep ithelial lesion or malignancy. Sales Agent Insurance [facility] Comment: SCOTT MCFARLANE(ASCP) CT screening location: [place] [address] [address] [address] [facility] Comment: EXPLANATORY NOTE: The Pap is a screening test for cervical cancer. It is not a diagnostic test and is subject to false negative and false positive results. It is most reliable when a satisfactory sample, regularly obtained, is submitted with relevant clinical findings and history, and when the Pap result is evaluated along with historic and current clinical information. 05/06/2020 2:54 PM CDT 05/07/2020 12:27 AM CDT Inga Woodard NP LAB CYTOLOGY ORDERABLES F inal Result Performing Organization Address [facility] de Phone Number [place] [address] [address] [place]UN[place] Naqvi [id number] * Hepatitis panel, acute (12/06/2019 12:19 PM CDT) Hep A IgM Nonreactive Nonreactive [facility] Comment: Interpretive Data: If Hep A IgM Ab is reported as Equivocal, a new sample should be drawn in two weeks for testing. Current interpretive data was last revised on 19. Hep B core IgM Nonreactive Nonreactive [facility] Comment: Interpretive Data If HepB Core IgM Ab is reported as Equivocal, a new sample should be drawn in two weeks for testing. Current interpretive data was last revised on 19. Hep C Ab Nonreactive Nonreactive [facility] Comment:Antibodies to HCV no t detected. Does NOT exclude the possibility of recent exposure to HCV. HepBsAg Nonreactive Nonreactive [facility] Blood specimen (specimen) 12/06/2019 12:19 PM CDT 12/06/2019 6:48 PM CDT Suzanna Amaro MD LAB MICROBIOLOGY - GENERAL ORDER KHUSHBOO Final Result Performing Organization Address [facility] Co de Phone Number [facility]ER [facility] Department [place] [address] * COLONOSCOPY (03/03/2010) Colonoscopy Normal us Historical Provider MD HEALTH MAINTENANCE Final Result from Last 3 Months or Most Recently Relevant to Health Maintenance Insurance MEDICARE SOLUTIONS [employer]AR MED[employer] IDPA Advance Directives For more information, please contact: [phone] Documents on File Type Date Recorded Patient Historiography Professor Expl anation ADVANCE DIRECTIVE 02/28/2017 7:55 PM ADVANCE DIRECTIVE 02/28/2017 Advance Di rective Checklist ADVANCE DIRECTIVE 01/24/2017 10:04 AM ADVANCE DIRECTIVE 10/26/2016 Advance Di rective Checklist * Full Code (Latest Code Status on File) Date Activated Date Inactivated Comments 02/22/2024 7:02 PM 02/26/2024 6:18 PM * Full Code Date Activated Date Inactivated Comments 02/06/2024 9:46 AM 02/06/2024 4:28 PM * Full Code Date Activated Date Inactivated Comments 04/23/2019 10:16 AM 04/23/2019 4:39 PM * Full Code Date Activated Date Inactivated Comments 01/25/2019 10:55 PM 01/28/2019 5:15 PM * Full Code Date Activated Date Inactivated Comments 01/14/2019 3:11 PM 01/14/2019 9:09 PM Care Teams Sfdc Solution Architect Relationship Specialty Start Date End Date Himanshu Cantu MD PCP - General 05/06/16 Gretchen Mclain MD Consulting Physician Cardiology 09/07/17 Tyson Porras MD [address] [place] [address] DR MICHELLE Lorenzo [address] [address] Surgeon Orthopedic Surgery 09/07/17 Abner Arauz, CORONER TECHNICIAN [address] [address] [place] [id number] Nurse Practitioner Internal Medicine 09/07/17 [place] [address] [address] [address] Consulting Physician Nephrology 09/07/17 [place] [address] [address] [address] Fellow Internal Medicine 05/17/22 Aline Guzman, RN [address] [place] [address] [address] [place] [address] Communications Agent 02/27/24
--- OUTSIDE RECORDS SUMMARY | 2024-04-01 18:45 | XMS_ITS | Encounter Summary ---
Author Organization [facility] Healthcare Address [address] [place] [address] Care Team Providers Care Occupational Health Specialist Name Role Phone Himanshu Cantu MD Primary Care Provider Brandin Mclain MD Unavailable Tyson Porras MD Unavailable Abner Arauz NP Unavailable [phone] Yohannes Andersen MD Unavailable [phone] Maegan Castillo MD Unavailable Aline Guzman RN Unavailable Reason for Visit * Reason Comments Leg Pain Patient here for c/o leg pain that started last , stated it radiates up to her thigh. Patient said she is having slight calf pain in right calf. States she had chest pain radiating to shoulder this morning. Encounter Details Date Type Department Care Team (Late st Contact Info) Description 04/01/2024 4:45 PM SUPERVISOR SLATE SPLITTING Office Visit [facility] at [address] [address] Joseluis Rose NP [address] [place] [id number] Hypoxia (Primary Dx); Tachycardia; Chest pain, unspecified type; Shortness of breath Social History Tobacco Use Types Packs/Day Years Used Date Smoking Tobacco: Never Smokeless Tobacco: Never Alcohol Use Standard Drinks/Week Comments No 0 (1 standard drink = 0.6 oz pur e alcohol) [facility] Utilities Answer Date Recorded In the past [...] any time in the past 12 [facility], were you homeless or living in a intermediate (including now)? No 02/27/2024 Personal Safety Answer Date Recorded Have you ever been in or are you currently in a harmful physical or emotional relationship or is someone making you feel afraid or unsafe? Denies 02/22/2024 Comments No Sex and Gender Information Value Date Recorded Sex Assigned at Not on file Legal Sex Female 1:35 AM SUPERVISOR SLATE SPLITTING Gender Identity Not on file Sexual Orientation Not on file documented as of this encounter Last Filed Vital Signs Vital Sign Reading Time Taken Comments Blood Pressure 135/69 04/01/2024 4:15 PM SUPERVISOR SLATE SPLITTING Pulse 125 04/01/2024 4:56 PM SUPERVISOR SLATE SPLITTING Temperature - - Respiratory Rate 26 04/01/2024 4:15 PM SUPERVISOR SLATE SPLITTING Oxygen Saturation 96% 04/01/2024 4:5 6 PM SUPERVISOR SLATE SPLITTING On 2 L of oxygen Inhaled Oxygen Concentration - - Weight 133.8 kg (295 lb) 04/01/2024 4:1 5 PM SUPERVISOR SLATE SPLITTING Height 157.5 cm (5' 2 ) 04/01/2024 4:15 PM SUPERVISOR SLATE SPLITTING Body Mass Index 53.96 04/01/2024 4:15 PM SUPERVISOR SLATE SPLITTING documented in this encounter Plan of Treatment Not on file documented as of this encounter Goals Goal Patient Goal Type Associated Problems Recent Progress Patient-Stated? Author REYES General Goal - Patient schedules and keeps appointments with all recommended providers ACO Care Management On track(2024 12:49 PM SUPERVISOR SLATE SPLITTING) Aline Bales RN Note: Problem: Potential for [...] ACO Care Management On track(2024 12:49 PM SUPERVISOR SLATE SPLITTING) Aline Bales RN Note: Problem: Knowledge deficit [...] as of this encounter Visit Diagnoses Diagnosis Hypoxia- Primary Hypoxemia Tachycardia Unspecified tachycardia Chest pain, unspecified type Shortness of breath documented in this encounter Care Teams Occupational Health Specialist Relationship Specialty Start Date End Date Himanshu Cantu MD PCP - General 05/06/16 Brandin Mclain MD Consulting Physician Cardiology 09/07/17 Tyson Porras MD [address] [place] [address] [address]ART[address] [address] Surgeon Orthopedic Surgery 09/07/17 [place] [address] [address] [address] Nurse Practitioner Internal Medicine 09/07/17 [place] [address] [address] [address] Consulting Physician Nephrology 09/07/17 [place] [address] [address] [address] Fellow Internal Medicine 05/17/22 Aline Guzman RN [address] [place] [address] [address] [place] [address] Manager Diversity 02/27/24 documented as of this encounter
--- OUTSIDE RECORDS SUMMARY | 2024-04-01 18:45 | XMS_ITS | Patient Health Summary ---
Author Organization [facility] Address [facility] [place] [address] Care Team Providers Care Client Experience Manager Name Role Phone Himanshu Cantu MD Primary Care Provider + [phone] Note from [facility],non-owned Affiliates and Associated Physician Practices is amultiple site organization consisting of ambulatory clinics and hospital sitesin [place], [place], [place] and [place]. This disclosure is being madepursuant to the Care Everywhere program and may not contain all information available regarding this patient. Last updated 17.[facility] Allergies * Penicillins(Urticaria) Medications * Be aware that medications may not be up to date on this document. Alwaysverify current medications with the patient. * CARDIZEM CD 360 MG CP24 Take 360 mg by mouth daily. * COREG 25 MG TABS Take 25 mg by mouth 2 times daily with breakfast and dinner. * CRESTOR 20 MG TABS Take 20 mg by mouth daily. * INSPRA 25 MG TABS Take 25 mg by mouth daily. * insulin glargine (LANTUS SOLOSTAR) injection(Started 02/20/2008) Inject 0.2 mL subcutaneously at bedtime. 11 refills left * insulin lispro (HUMALOG KWIKPEN) injection(Started 02/20/2008) Inject 0.2 mL subcutaneously 3 times daily before meals. 11 refills left * glucose blood (ONETOUCH ULTRA TEST STRIPS) strip(Started 07/24/2008) Use 1 Strip once. 12 refills left * allopurinol (ZYLOPRIM) 300 MG tablet(Started 11/26/2008) Take 1 Tab by mouth daily. 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 Acute gouty arthritis 02/20/2008 Hypertension, malignant 02/20/2008 Hypertensive nephropathy 02/20/2008 Gout 11/09/2006 Diabetes mellitus type II, uncontrolled 12/23/19 06 CHF (congestive heart failure) 08/24/2004 Immunizations * INFLUENZA VACCINE(Given 10/30/2010) Social History Tobacco Use Types Packs/Day Years [...] Mass Index 47.45 10/20/2015 11:00 AM CDT Procedures * IMAGING/RADIOLOGY/XRAY RESULTS ORDER(Performed 06/12/2014) * MAMMOGRAPHY ORDER(Performed 06/29/2011) * MICROALB/CREAT RATIO URINE RANDOM PANEL(Performed 11/26/2008) Performed for 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), DiabetesMellitus Type II, Uncontrolled, Acute Serous Otitis Media * VITAMIN D 25-HYDROXY(Performed 11/26/2008) Performed for 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), DiabetesMellitus Type II, Uncontrolled, Acute Serous Otitis Media * LIPID PROFILE W TCHOL/HDL(Performed 11/26/2008) Performed for 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), DiabetesMellitus Type II, Uncontrolled, Acute Serous Otitis Media * C-PEPTIDE(Performed 11/26/2008) Performed for 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), DiabetesMellitus Type II, Uncontrolled, Acute Serous Otitis Media * GENERAL HEALTH PANEL(Performed 11/26/2008) Performed for 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), DiabetesMellitus Type II, Uncontrolled, Acute Serous Otitis Media * HEMOGLOBIN A1C(Performed 11/26/2008) Performed for 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), DiabetesMellitus Type II, Uncontrolled, Acute Serous Otitis Media * MICROALB/CREAT RATIO URINE RANDOM PANEL(Performed 08/14/2008) Performed for Necrobiosis Lipoidica Diabeticorum Due To Secondary Diabetes Mellitus (Hcc), DiabetesMellitus Type II, Uncontrolled * LIPID PROFILE W TCHOL/HDL(Performed 08/14/2008) Performed for Necrobiosis Lipoidica Diabeticorum Due To Secondary Diabetes Mellitus (Hcc), DiabetesMellitus Type II, Uncontrolled * GENERAL HEALTH PANEL(Performed 08/14/2008) Performed for Necrobiosis Lipoidica Diabeticorum Due To Secondary Diabetes Mellitus (Hcc), DiabetesMellitus Type II, Uncontrolled * HEMOGLOBIN A1C(Performed 08/14/2008) Performed for Necrobiosis Lipoidica Diabeticorum Due To Secondary Diabetes Mellitus (Hcc), DiabetesMellitus Type II, Uncontrolled * MICROALB/CREAT RATIO URINE RANDOM PANEL(Performed 02/05/2008) * C-PEPTIDE(Performed 01/23/2008) * URIC ACID BLOOD(Performed 01/23/2008) * HEMOGLOBIN A1C(Performed 01/23/2008) * TSH(Performed 01/23/2008) * LIPID PROFILE W TCHOL/HDL(Performed 01/23/2008) * COMPREHENSIVE METABOLIC PANEL(Performed 01/23/2008) * CBC W AUTO DIFFERENTIAL(Performed 01/23/2008) Results * IMAGING/RADIOLOGY/XRAY RESULTS ORDER (06/12/2014) Anatomical Region Laterality Modality Other Josesito Mccord DO IMAGING * MAMMOGRAPHY ORDER (06/29/2011) Anatomical Region Laterality Modality Other Josesito Mccord DO MAMMO ORDERABLES * (ABNORMAL) LIPID PROFILE W TCHOL/HDL (PO REF LAB) (11/26/2008 3:58 PM CDT) Only the most recent of3 resultswithin the time period is included. Cholesterol 237(H) 100 - 199 mg/dL [facility] ACCOUNT BILL Triglycerides 222(H) 0 - 149 mg/dL [facility] ACCOUNT BILL HDL Cholesterol 45 >39 mg/dL [facility] ACCOUNT BILL Comment: According to ATP-III Guidelines, HDL-C >59 mg/dL is considered a negative risk factor for CHD. VLDL Calculated 44(H) 5 - 40 mg/dL [facility] ACCOUNT BILL LDL Calculated 148(H) 0 - 99 mg/dL [facility] ACCOUNT BILL Cholesterol/HDL Ratio 5.3(H) 0.0 - 4.4 ratio units [facility] ACCOUNT BILL BLOOD SPECIMEN / Unknown 11/26/2008 3:58 PM CDT 11/26/2008 9:11 PM CDT Narrative Resulting Agency [facility] [address] [facility] [phone] Josesito Mccord DO LAB - CHEMISTRY [facility] ACCOUNT BILL * (ABNORMAL) MICROALB/CREAT RATIO URINE RANDOM PANEL (11/26/2008 3:58 PM CDT) Only the most recent of3 resultswithin the time period is included. Creatinine 24 Hour Urine 46.6 15.0 - 278.0 mg/dL [facility] ACCOUNT BILL Microalbumin Urine 147.6(H) 0.0 - 17.0 ug/mL [facility] ACCOUNT BILL Microalbumin/Crea tinine Ratio 316.7(H) 0.0 - 30.0 mg/g creat [facility] ACCOUNT BILL URINE / Unknown 11/26/2008 3 :58 PM CDT 11/26/2008 9:11 PM CDT Narrative Resulting Agency Comment [facility] [address] [facility] [phone] Josesito Mccord DO LAB - URINE CHEMISTR Y ORDERABLES Performing Organization Address [facility]/ZIP Co de Phone Number [facility] ACCOUNT BILL * (ABNORMAL) C-PEPTIDE (11/26/2008 3:58 PM CDT) Only the most recent of2 resultswithin the time period is included. C-Peptide 13.2(H) 1.1 - 5.0 ng/mL [facility] ACCOUNT BILL BLOOD SPECIMEN / Unknown 11/26/2008 3:58 PM CDT 11/26/2008 9:11 PM CDT Narrative Resulting Agency Comment [place] [id number] [facility] [phone] Josesito Mccord DO LAB - CHEMISTRY ORDE RABJULIUS Performing Organization Address [facility] Co de Phone Number [facility] ACCOUNT BILL * (ABNORMAL) VITAMIN D 25-HYDROXY (11/26/2008 3:58 PM CDT) Vitamin D, 25 Hydroxy 17.0(L) 32.0 - 100.0 ng/mL [facility] ACCOUNT BILL Comment: Recent studies consider the lower limit of 32.0 ng/mL to be a threshold for optimal health. Sigifredo GAINES. J Nutr. 2004;135(2):317-22. BLOOD SPECIMEN / Unknown 11/26/2008 3:58 PM CDT 11/26/2008 9:11 PM CDT Narrative Resulting Agency Comment [facility] [address] [facility] [phone] Josesito Mccord DO LAB - CHEMISTRY ORDE RABJULIUS Performing Organization Address [facility]/ZIP Co de Phone Number [facility] ACCOUNT BILL * (ABNORMAL) GENERAL HEALTH PANEL (11/26/2008 3:57 PM CDT) Only the most recent of2 resultswithin the time period is included. Glucose 180(H) 65 - 99 mg/dL [facility] ACCOUNT BILL BUN 16 5 - 26 mg/dL [facility] ACCOUNT BILL Creatinine 1.10(H) 0.57 - 1.00 mg/dL [facility] ACCOUNT BILL eGFR by MDRD 53(L) >59 mL/min/1. 73 [facility] ACCOUNT BILL eGFR by MDRD >59 >59 mL/min/1. 73 [facility] ACCOUNT BILL Comment: Note: Persistent reduction for 3 months or more in an eGFR <60 mL/min/1.73 m2 defines CKD. Patients with eGFR values >/=60 mL/min/1.73 m2 may also have CKD if evidence of persistent proteinuria is present. Additional information may be found at [email or web address]. BUN/Creatinine Ratio 15 8 - 27 [facility] ACCOUNT BILL Sodium 143 135 - 145 mmol/L [facility] ACCOUNT BILL Potassium 3.8 3.5 - 5.2 mmol/L [facility] ACCOUNT BILL Chloride 100 97 - 108 mmol/L [facility] ACCOUNT BILL CO2 30 20 - 32 mmol/L [facility] ACCOUNT BILL Calcium 9.8 8.5 - 10.6 mg/dL [facility] ACCOUNT BILL Protein Total 6.9 6.0 - 8.5 g/dL [facility] ACCOUNT BILL Albumin 4.1 3.5 - 5.5 g/dL [facility] ACCOUNT BILL Globulin Total 2.8 1.5 - 4.5 g/dL [facility] ACCOUNT BILL Albumin/Globulin Ratio 1.5 1.1 - 2.5 [facility] ACCOUNT BILL Bilirubin Total 0.3 0.1 - 1.2 mg/dL [facility] ACCOUNT BILL Alkaline Phosphatase 89 25 - 150 IU/L [facility] ACCOUNT BILL AST 13 0 - 40 IU/L [facility] ACCOUNT BILL ALT 13 0 - 40 IU/L [facility] ACCOUNT BILL TSH 2.800 0.450 - 4.500 uIU/mL [facility] ACCOUNT BILL WBC 9.1 4.0 - 10.5 x10E3/uL [facility] ACCOUNT BILL RBC 4.69 3.80 - 5.10 x10E6/uL [facility] ACCOUNT BILL Hemoglobin 14.7 11.5 - 15.0 g/dL [facility] ACCOUNT BILL Hematocrit 43.8 34.0 - 44.0 % [facility] ACCOUNT BILL MCV 93 80 - 98 fL [facility] ACCOUNT BILL MCH 31.4 27.0 - 34.0 pg [facility] ACCOUNT BILL MCHC 33.6 32.0 - 36.0 g/dL [facility] ACCOUNT BILL RDW 14.3 11.7 - 15.0 % [facility] ACCOUNT BILL Platelet Count 274 140 - 415 x10E3/uL [facility] ACCOUNT BILL Granulocytes % 70 40 - 74 % [facility] ACCOUNT B[facility] Lymphocytes % 22 14 - 46 % [facility] ACCOUNT BILL Monocytes % 5 4 - 13 % [facility] ACCOUNT BILL Eosinophils % 2 0 - 7 % [facility] ACCOUNT BILL Basophils % 1 0 - 3 % [facility] ACCOUNT BILL Granulocytes Absolute 6.4 1.8 - 7.8 x10E3/uL [facility] ACCOUNT BILL Lymphocytes Absolute 2.0 0.7 - 4.5 x10E3/uL [facility] ACCOUNT BILL Monocytes Absolute 0.5 0.1 - 1.0 x10E3/uL [facility] ACCOUNT BILL Eosinophils Absolute 0.2 0.0 - 0.4 x10E3/uL [facility] ACCOUNT BILL Basophils Absolute 0.1 0.0 - 0.2 x10E3/uL [facility] ACCOUNT BILL Comment Hematology NOT AVAIL. [facility] ACCOUNT BILL BLOOD SPECIMEN / Unknown 11/26/2008 3:57 PM CDT 11/26/2008 9:03 PM CDT Narrative [facility] ACCOUNT BILL - 11/27/2008 6:11 AM CDT Additional Result Information HEMATOLOGY COMMENTS: BLOOD,URINE ([facility]): RESULT NOT AVAILABLE Resulting Agency Comment [facility] [address] [phone] Josesito Mccord DO LAB - CHEMISTRY SELENA HDEZ [facility] ACCOUNT BILL * (ABNORMAL) HEMOGLOBIN A1C (11/26/2008 3:57 PM CDT) Only the most recent of3 resultswithin the time period is included. Hemoglobin A1c 8.1(H) <7.0 % [facility] ACCOUNT BILL Comment: Diabetic Adult <7.0 Healthy Adult 4.8 - 5.9 (DCCT/NGSP) [place] [employer] Association's Summary of Glycemic Recommendations for Adults with Diabetes: Hemoglobin A1c <7.0%. More stringent glycemic goals (A1c <6.0%) may further reduce complications at the cost of increased risk of hypoglycemia. BLOOD SPECIMEN / Unknown 11/26/2008 3:57 PM CDT 11/26/2008 9:03 PM CDT Narrative Resulting Agency Comment [facility] [address] [phone] Josesito Mccord DO LAB - CHEMISTRY ORDJarret BANGJULIUS Performing Organization Address [facility] Co de Phone Number [facility] ACCOUNT BILL * URIC ACID BLOOD (01/23/2008 10:23 AM ELECTRONIC ENGINEERING TECHNICIAN) Uric Acid 6.5 2.4 - 8.2 mg/dL [facility] ACCOUNT BILL 01/23/2008 10:2 3 AM ELECTRONIC ENGINEERING TECHNICIAN 01/23/2008 5:59 PM ELECTRONIC ENGINEERING TECHNICIAN Narrative Resulting Agency Comment [facility] [address] [phone] Josesito Mccord DO LAB - CHEMISTRY ORDE LEMUEL Performing Organization Address [facility] de Phone Number [facility] ACCOUNT BILL * CBC W AUTO DIFFERENTIAL (01/23/2008 10:23 AM ELECTRONIC ENGINEERING TECHNICIAN) WBC 8.4 4.0 - 10.5 x10E3/uL [facility] ACCOUNT BILL RBC 4.58 3.80 - 5.10 x10E6/uL [facility] ACCOUNT BILL Hemoglobin 14.2 11.5 - 15.0 g/dL [facility] ACCOUNT BILL Hematocrit 41.7 34.0 - 44.0 % [facility] ACCOUNT BILL MCV 91 80 - 98 fL [facility] ACCOUNT BILL MCH 30.9 27.0 - 34.0 pg [facility] ACCOUNT BILL MCHC 33.9 32.0 - 36.0 g/dL [facility] ACCOUNT BILL RDW 13.2 11.7 - 15.0 % [facility] ACCOUNT BILL Platelet Count 294 140 - 415 x10E3/uL [facility] ACCOUNT BILL Granulocytes % 70 40 - 74 % [facility] ACCOUNT B[facility] Lymphocytes % 23 14 - 46 % [facility] ACCOUNT BILL Monocytes % 5 4 - 13 % [facility] ACCOUNT BILL Eosinophils % 2 0 - 7 % [facility] ACCOUNT BILL Basophils % 0 0 - 3 % [facility] ACCOUNT BILL Granulocytes Absolute 5.9 1.8 - 7.8 x10E3/uL [facility] ACCOUNT BILL Lymphocytes Absolute 1.9 0.7 - 4.5 x10E3/uL [facility] ACCOUNT BILL Monocytes Absolute 0.4 0.1 - 1.0 x10E3/uL [facility] ACCOUNT BILL Eosinophils Absolute 0.2 0.0 - 0.4 x10E3/uL [facility] ACCOUNT BILL Basophils Absolute 0.0 0.0 - 0.2 x10E3/uL [facility] ACCOUNT BILL Comment Hematology NOT AVAIL. [facility] ACCOUNT BILL 01/23/2008 10:2 3 AM ELECTRONIC ENGINEERING TECHNICIAN 01/23/2008 5:59 PM ELECTRONIC ENGINEERING TECHNICIAN Narrative [facility] ACCOUNT BILL - 01/24/2008 8:21 AM ELECTRONIC ENGINEERING TECHNICIAN Additional Result Information HEMATOLOGY COMMENTS: BLOOD,URINE ([facility]): RESULT NOT AVAILABLE Resulting Agency Comment [facility] [address] [phone] Josesito Mccord DO LAB - HEMATOLOGY ORD ERABLES [facility] ACCOUNT BILL * (ABNORMAL) COMPREHENSIVE METABOLIC PANEL (01/23/2008 10:23 AM ELECTRONIC ENGINEERING TECHNICIAN) Glucose 156(H) 65 - 99 mg/dL [facility] ACCOUNT BILL BUN 28(H) 5 - 26 mg/dL [facility] ACCOUNT BILL Creatinine 1.20(H) 0.57 - 1.00 mg/dL [facility] ACCOUNT BILL eGFR by MDRD 48(L) >59 mL/min/1.7 3 [facility] ACCOUNT BILL eGFR by MDRD 58(L) >59 mL/min/1.7 3 [facility] ACCOUNT BILL Comment: Note: Persistent reduction for 3 months or more in an eGFR <60 mL/min/1.73 m2 defines CKD. Patients with eGFR values >/=60 mL/min/1.73 m2 may also have CKD if evidence of persistent proteinuria is present. Additional information may be found at [email or web address]. BUN/Creatinine Ratio 23 8 - 27 [facility] ACCOUNT BILL Sodium 143 135 - 145 mmol/L [facility] ACCOUNT BILL Potassium 4.0 3.5 - 5.2 mmol/L [facility] ACCOUNT BILL Chloride 100 97 - 108 mmol/L [facility] ACCOUNT BILL CO2 29 20 - 32 mmol/L [facility] ACCOUNT BILL Calcium 9.7 8.5 - 10.6 mg/dL [facility] ACCOUNT BILL Protein Total 7.0 6.0 - 8.5 g/dL [facility] ACCOUNT BILL Albumin 3.9 3.5 - 5.5 g/dL [facility] ACCOUNT BILL Globulin Total 3.1 1.5 - 4.5 g/dL [facility] ACCOUNT BILL Albumin/Globulin Ratio 1.3 1.1 - 2.5 [facility] ACCOUNT BILL Bilirubin Total 0.4 0.1 - 1.2 mg/dL [facility] ACCOUNT BILL Alkaline Phosphatase 87 25 - 150 IU/L [facility] ACCOUNT BILL AST 17 0 - 40 IU/L [facility] ACCOUNT BILL ALT 20 0 - 40 IU/L [facility] ACCOUNT BILL 01/23/2008 10:2 3 AM ELECTRONIC ENGINEERING TECHNICIAN 01/23/2008 5:59 PM ELECTRONIC ENGINEERING TECHNICIAN Narrative Resulting Agency Comment [facility] [address] [phone] Josesito Mccord DO LAB - CHEMISTRY SELENA HDEZ Performing Organization Address [place]/[facility] de Phone Number [facility] ACCOUNT BILL * TSH (01/23/2008 10:23 AM ELECTRONIC ENGINEERING TECHNICIAN) TSH 2.779 0.450 - 4.500 uIU/mL [facility] ACCOUNT BILL 01/23/2008 10:2 3 AM ELECTRONIC ENGINEERING TECHNICIAN 01/23/2008 5:59 PM ELECTRONIC ENGINEERING TECHNICIAN Narrative Resulting Agency Comment [facility] [address] [phone] Josesito Mccord DO LAB - CHEMISTRY SELENA HDEZ [facility] ACCOUNT BILL Care Teams Client Experience Manager Relationship Specialty Start Date End Date Himanshu Cantu MD PCP - General Family Medicine 10/20/15"
--- OUTSIDE RECORDS SUMMARY | 2024-04-01 18:45 | XMS_ITS | Clinical Summary ---
Author Organization [facility] Address [address] [place] [address] Care Team Providers Care Range Ecologist Name Role Phone Himanshu Cantu MD Primary Care Provider [phone] Gretchen Mclain MD Unavailable [phone] Tyson Porras MD Unavailable Abner Arauz NP Unavailable Yohannes Andersen MD Unavailable [phone] Maegan Castillo MD Unavailable Aline Guzman RN Unavailable [phone] Allergies Active Allergy Reactions Criticality Noted Date [...] 22 Active blood-glucose meter,continuo us (Dexcom G6 Svp Chief Marketing Officer) miscIndication s:Type 2 diabetes mellitus with complication, with long-term current use of insulin ([facility]) For daily glucose monitoring 1 each 07/07/19 Active blood-glucose sensor (Dexcom G6 Sensor) deviceIndicati ons:Type 2 diabetes mellitus with complication, with long-term current use of insulin ([facility]) For daily glucose monitoring 3 each 3 07/07/19 Active blood-glucose transmitter (Dexcom G6 Transmitter) deviceIndicati ons:Type 2 diabetes mellitus with complication, with long-term current use of insulin ([facility]) For daily glucose monitoring 1 each 3 07/07/19 Active insulin glargine (LANTUS) 100 unit/mL (3 mL) pen for injectionIndic ations:Type 2 diabetes mellitus with complication, with long-term current use of insulin ([facility]) Inject 40 Units under the skin [...] total) by mouth daily 90 tablet 3 08/21/19 24 Active ezetimibe (Zetia) 10 mg tablet Take 1 tablet (10 mg total) by mouth daily 30 tablet 11 08/21/19 24 2024 Active escitalopram (LEXAPRO) 20 [...] complication, with long-term current use of insulin ([facility]) INJECT UNDER THE SKIN THREE TIMES [...] Active pen needle, diabetic 31 gauge x 516 needle Use to inject 1-4 times daily [...] 1 tablet (100 mcg total) by mouth web production assistant before breakfast 30 tablet 02/26/19 25 Active [...] Problem Noted Date Diagnosed Date CAD in [place] artery 02/22/2024 Coronary artery disease of n ative artery of [place] heart with stable angina pectoris 01/10/2024 Trigger [...] believe there will be a couple in [place] or [place]; will have to find their names BP is controlled, has been as well Get back into nephology soon Renal function remains poor, but actually slightly better than previous Sodium is slightly elevated Anemia, vitamin D are improved Cholesterol panel shows control Vitamin D deficiency 05/19/2021 Chronic kidney disease (CKD), stage IV (severe) ([facility]) 09/18/2020 Overview (09/18/2020): continuing follow up with day haul or farm charter bus driver Assessment & Plan (03/06/2024 12:22 PM ROUTING EQUIPMENT TENDER): 03/05 BNP 1,014. Continue diuretics. Continue following with nephro Assessment & Plan (09/02/2021 1:20 PM CDT): Condition stable - continue follow up with nephrology. Encounter for screening colonoscopy 08/03/2020 Overview (08/03/2020): Added automatically from request for surgery [id number] Rash and nonspecific skin eruption 06/14/2020 Assessment & Plan (06/14/2020 1:50 PM CDT): Dermatitis vs folliculitis. Will start Kenelog ointment x 2 weeks. Also, will have a short course of antibiotic given likelihood of infection given the etiology Inflammatory polyarthropathy or polyarthritis ([facility]) 08/22/2019 Diabetic nephropathy associa sammie with [...] 04/02/2018 Assessment & Plan (02/05/2024 9:29 AM ROUTING EQUIPMENT TENDER): Continue Ciprodex drops 7 drops into the [...] now. Assessment & Plan (04/02/2018 1:27 PM ROUTING EQUIPMENT TENDER): Also starting in right side. She is [...] for her with all new supplies through [facility] home care services and she will follow up here in 2 months. She does understand that she may need a new diagnostic sleep study. Assessment & Plan (12/22/2017 9:25 PM ROUTING EQUIPMENT TENDER): Continue CPAP Assessment & Plan (11/16/2017 11:28 AM CDT): Cpap at bedside. Polyarthralgia 10/12/2017 Chronic renal insufficiency, stage III (moderate ) 05/08/2017 Assessment & Plan (03/07/2022 3:58 PM ROUTING EQUIPMENT TENDER): Condition stable - continue follow up with [...] 05/08/2017 Assessment & Plan (03/06/2024 12:07 PM ROUTING EQUIPMENT TENDER): BP stable. Continue inspra, metoprolol XL, nitrostat, [...] mellitus 03/31/2017 Chronic systolic congestive heart failure ([facility]) 06/21/2016 Assessment & Plan (03/06/2024 12:12 PM ROUTING EQUIPMENT TENDER): -Continue aspirin, plavix (patient was asked to continue both prior to her planned procedure) with management outpatient per cardiology -resume Jardiance -GDMT: continue metop XL 25 mg daily, imdur 120 mg daily, high dose entresto BID -Diuretics: torsemide 40 BID Assessment & Plan (01/28/2019 9:43 AM ROUTING EQUIPMENT TENDER): TTE overall unchanged - holding torsemide with WILLIAN and euvolemic on exam - increase entresto to mid dose - continue coreg at reduced dose Weight up 2 pounds ( difficulty with fluid assessment related to morbid obesity ) Hyperlipidemia 03/11/2016 Assessment & Plan (03/06/2024 12:08 PM ROUTING EQUIPMENT TENDER): 02/17 LDL 129. Continue atorvastatin Cardiomyopathy, nonischemic ([facility]) 03/11/2016 Assessment & Plan (02/10/2020 3:43 PM ROUTING EQUIPMENT TENDER): Complicated with CKD GFR was 22 in September/2019 stable Plan: Continue follow up with cardiology and nephrology Dyspnea on exertion 02/09/2016 Overview (05/12/2016): Shortness of breath on exertion History of cardiac catheterization 12/18/2015 Overview (05/12/2016): S/P cardiac catheterization Presence of stent in coronary artery 12/18/2015 Overview (05/12/2016): History of heart artery stent Atherosclerosis of [place] co ronary artery of [place] heart with stable angina pectoris ([facility]) 10/21/2015 Overview (05/12/2016): Coronary atherosclerosis Assessment & Plan (03/06/2024 12:03 PM ROUTING EQUIPMENT TENDER): -Continue aspirin, plavix (patient was asked to [...] month) Assessment & Plan (01/28/2019 9:44 AM ROUTING EQUIPMENT TENDER): Continue aspirin 81 mg daily , carvedilol 12.5 mg bid and atorvastatin 80 mg daily Myocardial infarction 03/17/2015 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 No thoughts of self harm. Continue lexapro Assessment & Plan (10/20/2020 4:22 PM CDT): Lexapro 5 mg daily. This is the recommended starting dose for someone with renal failure. We will have to repeat EKG at follow-up. If she notes any palpitations, we will stop the medication. Gout 06/22/2013 Overview (09/08/2016): Gout Overview: Assessment & Plan (12/22/2017 8:11 PM ROUTING EQUIPMENT TENDER): Continue allopurinol Assessment & Plan (11/16/2017 11:29 AM CDT): Allopurinol. Type 2 diabetes mellitus wit h stage 4 chronic kidney disease, with long-term current use of insulin ([facility]) 06/22/2013 Overview (05/13/2016): DMII WO CMP NT ST UNCNTR Assessment & Plan (03/06/2024 12:10 PM ROUTING EQUIPMENT TENDER): Continue lispro, humalog, jardiance, lantus. Last A1c 7.6 02/2024. Assessment & Plan (12/04/2023 8:57 PM CDT): Prednisone x 5 days Maintain strict compliance with diuretic Doxy course sent as well Continue current regimen otherwise A1c today 7.7% I'd like to move the sliding scale up to total 80 units per day. Continue Lantus at 40 units Assessment & Plan (03/07/2022 3:57 PM ROUTING EQUIPMENT TENDER): Diagnosed 2010, and has been on insulin [...] basis. Assessment & Plan (03/04/2021 1:50 PM ROUTING EQUIPMENT TENDER): Diagnosed 2010, and has been on insulin [...] eye-exams Assessment & Plan (02/10/2020 3:40 PM ROUTING EQUIPMENT TENDER): Comments: Diagnosed 2010, and has been on [...] basis. Assessment & Plan (01/28/2019 9:29 AM ROUTING EQUIPMENT TENDER): Last hemglobin a1 c 10.5 Currently blood sugars are controlled in hospital : [id number]--89 Patient should follow up with PCP to follow up on elevated Hemoglobin a1c Continue 25 units of SQ lispro with meals and SSi Assessment & Plan (12/22/2017 9:22 PM ROUTING EQUIPMENT TENDER): fingersticks Home regimen lantus 36 U daily [...] OBESITY Assessment & Plan (03/06/2024 12:12 PM ROUTING EQUIPMENT TENDER): Educated about heart healthy diet, high protein low carb, and exercise Assessment & Plan (05/18/2023 3:20 PM CDT): BMI Follow-up includes: nutrition counseling, exercise counseling, and education provided. Assessment & Plan (05/21/2022 12:12 PM CDT): BMI Follow-up includes: nutrition counseling and exercise counseling. Assessment & Plan (03/01/2022 3:04 PM ROUTING EQUIPMENT TENDER): Healthy, low carbohydrate lifestyle and exercise for 150min/week recommended Assessment & Plan (02/22/2022 4:03 PM ROUTING EQUIPMENT TENDER): Healthy, low carbohydrate lifestyle and exercise for [...] provided. Assessment & Plan (01/28/2019 9:29 AM ROUTING EQUIPMENT TENDER): Weight loss advised. Assessment & Plan (11/16/2017 11:32 AM CDT): Would greatly benefit from weight loss. Abnormal mammogram 03/15/2011 Overview (05/13/2016): Abnormal finding on mammography Diastolic dysfunction 09/30/2008 Resolved Problems Problem Noted Date Diagnosed Date Resolved Date Hypotension due to drugs 03/01/202010/2020 Assessment & Plan (03/01/2020 1:37 PM ROUTING EQUIPMENT TENDER): BP improved some upon recheck Stay hydrated (within urologist recommendations). The urinalysis was unremarkable for dehydration, but there may be a touch of low volume going Cutting Coreg to 1/2 tab twice daily, and holding dose if BP below 100/60 Continuing diuretic and Entresto for now WILLIAN (acute kidney injury) 01/28/2019 Assessment & Plan (01/28/2019 9:30 AM ROUTING EQUIPMENT TENDER): Admitted with WILLIAN with creatine bumped after LHC and taking extra diuretic after elevated LVEDP Admitted with creatine 2.59 - currently have been holding diuretics Improved creatine today of 1.63 suspect will resume diuretics today and continue to monitor as outpatient Chest pain 11/16/2017 04/02/2018 Assessment & Plan (12/22/2017 9:23 PM ROUTING EQUIPMENT TENDER): S/p LHC today showing moderate LAD disease with ISR of prior stent, iFR performed and was 0.90. - continue aspirin, clopidogrel - continue atorvastatin - continue imdur, NTG prn - continue carvedilol - consider up-titrating imdur or carvedilol Assessment & Plan (11/16/2017 11:23 AM CDT): Need to r/o CT vs ACS. H/o stenting x3 in 2016. [...] Levaquin. Assessment & Plan (01/03/2017 11:05 AM ROUTING EQUIPMENT TENDER): Discussed with patient that this is likely viral bronchitis and may last 5-6 weeks. I do not believe that she needs any further antibiotics at this time. She has been on to use the packs a Medrol Dosepak and Levaquin. I will go ahead and try a prednisone taper today. She has a follow-up with her clinical team lead schedule January 13. She also has a history of congestive heart failure with an echo showing 20-30% function in August 2016. She has had a 4 lb weight gain since December 16. I recommended that she call her script artist and also discussed her symptoms. Her lung [...] eye exam this year. Continuing follow-up with venetian blind mechanic, so continuing Jardiance and insulin Continues follow-up with day haul or farm charter bus driver Assessment & Plan (03/04/2021 1:51 PM ROUTING EQUIPMENT TENDER): Controlled with medication - follow up with nephrology and PCP Assessment & Plan (12/22/2017 9:24 PM ROUTING EQUIPMENT TENDER): Continue carvedilol, entreso, imdur, HCTZ Patient also thinks she may be on eplerenone but not sure of dose and not on med list, will defer for now Assessment & Plan (11/16/2017 11:29 AM CDT): Stable. Not on any anti-hypertensive's. Pure hypercholesterolemia 06/22/2013 Overview (05/13/2016): PURE HYPERCHOLESTEROLEM CHF (congestive heart failure) ([facility]) 06/22/2013 04/02/2018 Overview (09/08/2016): CHF NOS Assessment & Plan (12/22/2017 9:25 PM ROUTING EQUIPMENT TENDER): Continue entresto, carvedilol Continue torsemide, monitor renal [...] aware to keep track of daily weights. Encounters Date Type Department Care Team Description 04/01/2024 4:45 PM ROUTING EQUIPMENT TENDER Office Visit [facility] at [address] [phone] Joseluis Rose NP Hypoxia (Primary Dx); Tachycardia; Chest pain, unspecified type; Shortness of breath 03/22/2024 Orders Only [facility] Transplant Heart [address] [phone] [place] [address] Luda Ko RN Chronic systolic congestive heart failure (CMS/HCC) (HCC) (Primary Dx) 03/21/2024 1:00 PM ROUTING EQUIPMENT TENDER [address] Chronic systolic congestive heart failure (CMS/HCC) (HCC) 03/06/2024 2:30 PM ROUTING EQUIPMENT TENDER Office Visit [facility] Primary Care at [address] [phone] Oneyda Viveros NP Atherosclerosis of [place] coronary artery of [place] heart with stable angina pectoris (CMS/HCC) (HCC) (Primary Dx); Type 2 diabetes mellitus with stage 4 chronic kidney disease, with long-term current use of insulin ([facility]) (HCC); Class 3 severe obesity due to excess calories with serious comorbidity and body mass index (BMI) of 50.0 to 59.9 in adult ([facility]); Essential hypertension; Mixed hyperlipidemia; Chronic systolic congestive heart failure (CMS/HCC) (HCC); Chronic kidney disease (CKD), stage IV (severe) ([facility]) ([facility]); Anxiety state; Mucopurulent chronic bronchitis ([facility]) 03/06/2024 Orders Only [facility] Transplant Heart [address] [place] [address] [address] [place] [address] Luda Ko RN CAD in [place] artery (Primary Dx); Coronary artery disease of [place] artery of [place] heart with stable angina pectoris (HCC) 03/06/2024 Orders Only [facility] Transplant Heart [address] [place] [address] [address] [place] [address] Luda Ko RN Chronic systolic congestive heart failure ([facility]/HCC) ([facility]) (Primary Dx) 03/05/2024 11:00 AM ROUTING EQUIPMENT TENDER Lab [facility] [place] [phone] Coronary artery disease involving [place] coronary artery of [place] heart without angina pectoris; Shortness of breath 03/05/2024 10:15 AM ROUTING EQUIPMENT TENDER Office Visit [facility] Cardiology [address] [facility] 8th [place] [address] [place] [phone] Coronary artery disease involving [place] coronary artery of [place] heart without angina pectoris (Primary Dx); Shortness of breath; Ischemic cardiomyopathy; Coronary artery disease of [place] artery of [place] heart with stable angina pectoris (HCC) 03/05/2024 Orders Only [facility] Primary Care at [address] [phone] Oneyda Viveros NP 03/04/2024 Hospital Encounter [facility] Digestive [facility] [address] [place] [address] Simone Marin MD 03/01/2024 Telephone [facility] [address] [place] [address] Josseline Maxwell MA Unsuccessful Phone Call 1 ([facility]) 02/23/2024 1:15 PM ROUTING EQUIPMENT TENDER - 02/23/2024 3:40 PM ROUTING EQUIPMENT TENDER Surgery [facility] [address] [place] [phone] Davi Carvajal MD PCI LEXIE ATHERECTOMY WITH STENT(S) - MAJOR CORONARY [id number] - [id number] 02/22/2024 6:55 PM ROUTING EQUIPMENT TENDER - 02/26/2024 2:13 PM ROUTING EQUIPMENT TENDER Hospital Encounter [address] [phone] Gretchen Mclain MD Baumann, Natalie Marie, MD Sintek, Marc Alan, MD Acute on chronic combined systolic and diastolic heart failure (CMS/HCC) (HCC) [I50.43] (Primary Dx); Coronary artery disease of [place] artery of [place] heart with stable angina pectoris (HCC); CAD in [place] artery Discharge Disposition: Discharge to home or self care 02/22/2024 3:00 PM ROUTING EQUIPMENT TENDER Office Visit [facility] Primary Care at [address] [phone] Himanshu Cantu MD Type 2 diabetes mellitus with stage 4 chronic kidney disease, with long-term current use of insulin (CMS/HCC) (HCC) (Primary Dx); Essential hypertension; Mixed hyperlipidemia 02/22/2024 Telephone [facility] Transplant Heart [address] [facility] [address] [phone] [place] [address] Luda Ko RN 02/20/2024 Orders Only Nephrology Yohannes Andersen MD [...] mg/g (HCC) (Primary Dx) 02/13/2024 9:35 AM ROUTING EQUIPMENT TENDER [address] Chronic systolic congestive heart failure (CMS/HCC) (HCC); Atherosclerosis of [place] coronary artery of [place] heart with stable angina pectoris (CMS/HCC) (HCC) 02/13/2024 9:20 AM ROUTING EQUIPMENT TENDER [address] Type 2 diabetes mellitus with stage 4 chronic kidney disease, with long-term current use of insulin (CMS/HCC) (HCC); Essential hypertension; Mixed hyperlipidemia; Vitamin D deficiency 02/09/2024 Telephone [facility] Transplant Heart [address] [facility] [address] [phone] [place] [address] Luda Ko RN 02/06/2024 8:30 AM ROUTING EQUIPMENT TENDER - 02/06/2024 9:55 AM [facility] Surgery [facility] [address] [place] [phone] Davi Carvajal MD LEFT HEART CATHETERIZATION WITH CORONARY ANGIOGRAPHY AND WITH OR WITHOUT LEFT VENTRICULOGRAM [id number] 02/06/2024 6:47 AM ROUTING EQUIPMENT TENDER - 02/06/2024 12:28 PM [facility] Hospital [facility] [address] [place] [phone] Davi Carvajal MD Cardiomyopathy, nonischemic (CMS/HCC) (HCC) [I42.8] (Primary Dx); Atherosclerosis of [place] coronary artery of [place] heart with stable angina pectoris (CMS/HCC) (HCC); Chronic systolic congestive heart failure (CMS/HCC) (HCC); Coronary artery disease of [place] artery of [place] heart with stable angina pectoris (HCC) Discharge Disposition: Discharge to home or self care 02/05/2024 9:00 AM ROUTING EQUIPMENT TENDER Office Visit [facility] [address] [facility] [address] [place] [phone] Stephanie Valiente, DO Other infective acute otitis externa of right ear 02/02/2024 Telephone [facility] Surgery [address] [facility] 6th [place] [address] [place] [address] Kevin Benitez CMA 02/02/2024 Telephone [facility] Transplant Heart [address] [facility] [address] Mail[address] [phone] [place] [address] Luda Ko RN 02/01/2024 12:35 PM ROUTING EQUIPMENT TENDER Lab [address] Atherosclerosis of [place] coronary artery of [place] heart with stable angina pectoris (CMS/HCC) (HCC); Chronic systolic congestive heart failure (CMS/HCC) (HCC) 01/25/2024 4:00 PM ROUTING EQUIPMENT TENDER Office Visit [facility] Con[facility]ient Care at [address] [phone] Loyda Wetzel NP Cough, unspecified type (Primary Dx); Other infective acute otitis externa of right ear 01/22/2024 Telephone [facility] Transplant Heart [address] [facility] [address] Mail[address] [phone] [place] [address] Luda Ko RN 01/17/2024 3:16 PM ROUTING EQUIPMENT TENDER - 01/17/2024 11:59 PM ROUTING EQUIPMENT TENDER Hospital [facility] [address] [place] [address] Atherosclerosis of [place] coronary artery of [place] heart with stable angina pectoris (CMS/HCC) (HCC); Chronic systolic congestive heart failure (CMS/HCC) (HCC); Chronic systolic heart failure (CMS/HCC) (HCC) Discharge Disposition: Discharge to home or self care 01/17/2024 3:15 PM ROUTING EQUIPMENT TENDER Lab [facility] Outpatient Lab at [address] [phone] Hyperlipidemia (Primary Dx); Essential hypertension 01/17/2024 3:00 PM ROUTING EQUIPMENT TENDER Office Visit [facility]ient Care at [address] [phone] Nandini Peterson, BHAVESH Acute otitis externa of right ear, unspecified type (Primary Dx) 01/10/2024 Telephone [facility] Transplant Heart [address] [facility] [address] Mail[address] [phone] [place] [address] Luda Ko RN 01/09/2024 9:30 AM ROUTING EQUIPMENT TENDER Office Visit [facility] Cardiology [address] [facility] 8th [place] [address] [place] [address] Chronic systolic heart failure (CMS/HCC) (HCC) (Primary Dx); Ischemic cardiomyopathy; Mixed hyperlipidemia; Chronic systolic congestive heart failure (CMS/HCC) (HCC) from Last 3 Months Immunizations Immunization Administration Dates Next Due Influenza, [...] 11/16/2021 Pneumococcal Polysaccharide PPV23 01/18/2010 Tdap 01/18/2006 Surgical History Surgery Date Site/Laterality Comments OTHER SURGICAL HISTORY 02/06/2009 - 02/05/2010 congestive heart failure: cardiac cath - negative OTHER SURGICAL HISTORY 02/06/2009 - 02/05/2010 congestive heart failure: stress echo - negative CARDIAC CATHETERIZATION CORONARY STENT PLACEMENT 3 stents IR CATHETER RIGHT HEART OR MAIN PULMONARY ARTERY 04/23/2019 Right TUBAL LIGATION 02/06/1983 - 02/06/1984 COLONOSCOPY UPPER GASTROINTESTINAL ENDOSCOPY FINGER SURGERY 09/11/2023 Right Excision RIGHT middle finger mucous cyst Medical History Medical History Date Comments Hx Other Medical contraception Type 2 diabetes mellitus (HCC) 06/22/2013 D MII WO CMP NT ST UNCNTR Gout CHF (congestive heart failure) (CMS/HCC) (HCC) Coronary artery disease Hyperlipidemia Hypertension Chronic kidney disease Sleep apnea Family History Medical History Relation Name Comments Coronary artery disease Brother 1 Kris nary artery disease, premature; Diabetes type II Brother 2 Diabetes -T ype 2; Hypertension Brother 3 Hypertension; Kidney disease Brother 4 Renal disease ; Stroke Brother 5 Stroke; Heart attack Brother 6 Family history of heart attack - 2 brothers. 1 from heart attack 05/2013 (Added by TW Conv) Lung cancer Father Coronary artery disease Mother Kris nary artery disease, premature; Diabetes type II Mother Diabetes -T ype 2; Hypertension Mother Hypertension; Lung cancer Mother Cancer -lung; Ovarian cancer Mother Cancer -ovari an; Anesthesia problems Neg Hx Relation Name Status Comments Brother 1 Brother 2 Brother 3 Brother 4 Brother 5 Brother 6 Father Mother Social History Tobacco Use Types Packs/Day Years Used Date Smoking Tobacco: Never Smokeless Tobacco: Never Tobacco Cessation:Counseling Given: Not Answered Alcohol Use Standard Drinks/Week Comments No 0 (1 standard drink = 0.6 oz pur e alcohol) [facility] Utilities Answer Date Recorded In the past 12 months has [employer], oil, or water [employer] threatened to shut off services in your [...] any time in the past 12 m [facility], were you homeless or living in a long-term (including now)? No 02/27/2024 Personal Safety Answer Date Recorded Have you ever been in or are you currently in a harmful physical or emotional relationship or is someone making you feel afraid or unsafe? Denies 02/22/2024 Comments No Sex and Gender Information Value Date Recorded Sex Assigned at Not on file Legal Sex Female 1:35 AM ROUTING EQUIPMENT TENDER Gender Identity Not on file Sexual Orientation Not on file Obstetrics History Para Term AB IAB SAB Ectopic Multiple Livin g Live Births 2 2 2 2 2 Date Outcome GA Total Labor Labor/2nd/3rd Weight Sex Type Anes PTL Vanessa A1 A5 Name Clin 1979 Term 3.374 kg (7 lb 7 oz) F Vag-S pont Living 1983 Term 4.479 kg (9 lb 14 oz) F Vag-S pont None Living Last Filed Vital Signs Vital Sign Reading Time Taken Comments Blood Pressure 135/69 04/01/2024 4:15 PM ROUTING EQUIPMENT TENDER Pulse 125 04/01/2024 4:56 PM ROUTING EQUIPMENT TENDER Temperature 36.4 C (97.5 F) 03/06/2024 2:18 PM ROUTING EQUIPMENT TENDER Respiratory Rate 26 04/01/2024 4:15 PM ROUTING EQUIPMENT TENDER Oxygen Saturation 96% 04/01/2024 4:5 6 PM ROUTING EQUIPMENT TENDER On 2 L of oxygen Inhaled Oxygen Concentration - - Weight 133.8 kg (295 lb) 04/01/2024 4:1 5 PM ROUTING EQUIPMENT TENDER Height 157.5 cm (5' 2 ) 04/01/2024 4:15 PM ROUTING EQUIPMENT TENDER Body Mass Index 53.96 04/01/2024 4:15 PM ROUTING EQUIPMENT TENDER Plan of Treatment Health Maintenance Due Date Last Done Comments DTaP/Tdap/Td Vaccine (2 - Td or Tdap) 01/19/2016 01/18/2006 Breast Cancer Screening-Mammogram 06/29/2021 06/29/2020, 02/04/2019, 07/02/2015 Osteoporosis Screening-Bone Density Scan 06/29/2022 06/29/2020 Foot Exam 03/07/2023 03/07/2022, 08/07, 03/04/2021, Additional history exists Dilated Eye Exam 09/16/2023 09/15/2021, 11/2021, 04/11/2019, Additional history exists Covid-19 Vaccine ( season) 2023 01/14/2021, 05/08/2020 Well Visit 65+ 11/17/2023 11/16/2022, 11/06, 05/06/2020 Albumin Creatinine Ratio, Urine 05/09/2024 05/10/2023, 11/18/2022, 10/23/2018, Additional history exists Zoster Vaccine (1 of 2) 05/17/2024 Post poned from 02/25/2008 (Insurance / Financial) Hemoglobin A1C 08/12/2024 02/13/2024, 11/06, 08/11/2023, Additional history exists Colon Cancer Screening-Colonoscopy 02/05/2025 03/03/2010, 03/03/2010 Postponed from 03/03/2020 (Patient declined, but will receive in the future) Lipid Panel 02/12/2025 02/13/2024, 04/0 04/2023, 11/14/2022, Additional history exists Depression Screening 02/21/2025 02/22/2024, 11/20/2023, 08/17/2023, Additional history exists Fall Risk Assessment 02/25/2025 02/26/2024, 02/22/2024, 02/16/2023, Additional history exists eGFR 03/21/2025 03/21/2024, 02/07, 02/26/2024, Additional history exists Colon Cancer Screening-CT Colonography Discontinued 03/03/2010, 03/03/2010 Colon Cancer Screening-DNA Stool Discontinued 03/03/2010, 03/03/2010 Colon Cancer Screening-FIT Discontinued 03/03/2010, Colon Cancer Screening-Sigmoidoscopy Discontinued 03/03/2010, 03/03/2010 Hepatitis C Screening Completed 12/06/2019 , 10/23/2018, 10/23/2018 Cervical Cancer Screening Discontinued 05/06/2020, Pneumococcal vaccine 65+ Completed 11/16/2021, 01/06 Hepatitis B Screening Completed 08/11/2023 Influenza Vaccine Completed 02/23/2024, , 11/16/2021, Additional history exists Goals Goal Patient Goal Type Associated Problems Recent Progress Patient-Stated? Author REYES General Goal - Patient schedules and keeps appointments with all recommended providers [facility] Care Management On track(2024 12:49 PM ROUTING EQUIPMENT TENDER) Aline Bales RN Note: Problem: Potential for [...] [facility]CO Care Management On track(2024 12:49 PM ROUTING EQUIPMENT TENDER) Aline Bales RN Note: Problem: Knowledge deficit [...] or provider. Medical Devices Implanted Type Area Faculty Member Device Identifier Shelf Expiration Date Model / Serial / Lot Stent Stent Left: Arterial Desk [employer] / / [employer] Stent Coronary De Rx Cocr Ors Msn 3.5x13mm [id number] - [id number] - [id number] Implanted:Qty : 1 on 02/23/2024 by Davi Carvajal MD at [facility] Stent Left: Anterior Descending Cornary Artery [employer] 07/15/2025 [id number] / [id number] / [id number] Procedures Procedure Name Priority Date/Time Associated Diagnosis Comments EGFR Routine 03/21/2024 1:02 PM ROUTING EQUIPMENT TENDER Chronic systolic congestive heart failure (CMS/HCC) (HCC) BASIC METABOLIC PANEL Routine 03/21/2024 1:02 PM ROUTING EQUIPMENT TENDER Chronic systolic congestive heart failure (CMS/HCC) (HCC) PRO B-TYPE NATRIURETIC PEPTIDE Routine 03/21/2024 1:02 PM ROUTING EQUIPMENT TENDER Chronic systolic congestive heart failure (CMS/HCC) (HCC) EGFR Routine 03/05/2024 11:01 AM ROUTING EQUIPMENT TENDER Coronary artery disease involving [place] coronary artery of [place] heart without angina pectoris Shortness of breath DIFFERENTIAL AUTO Routine 03/05/2024 11:01 AM ROUTING EQUIPMENT TENDER Coronary artery disease involving [place] coronary artery of [place] heart without angina pectoris Shortness of breath BASIC METABOLIC PANEL Routine 03/05/2024 11:01 AM ROUTING EQUIPMENT TENDER Coronary artery disease involving [place] coronary artery of [place] heart without angina pectoris Shortness of breath CBC WITH AUTO DIFFERENTIAL Routine 03/05/2024 11:01 AM ROUTING EQUIPMENT TENDER Coronary artery disease involving [place] coronary artery of [place] heart without angina pectoris Shortness of breath PRO B-TYPE NATRIURETIC PEPTIDE Routine 03/05/2024 11:01 AM ROUTING EQUIPMENT TENDER Coronary artery disease involving [place] coronary artery of [place] heart without angina pectoris Shortness of breath EGFR Routine 02/26/2024 11:48 AM ROUTING EQUIPMENT TENDER BASIC METABOLIC PANEL Routine 02/26/2024 11:48 AM ROUTING EQUIPMENT TENDER POCT GLUCOSE DEVICE Routine 02/26/2024 11:05 AM ROUTING EQUIPMENT TENDER POCT GLUCOSE DEVICE Routine 02/26/2024 7 :54 AM ROUTING EQUIPMENT TENDER POCT GLUCOSE DEVICE Routine 02/25/2024 8 :40 PM ROUTING EQUIPMENT TENDER EGFR Routine 02/25/2024 8:20 PM ROUTING EQUIPMENT TENDER DIFFERENTIAL AUTO Routine 02/25/2024 8:2 0 PM ROUTING EQUIPMENT TENDER BASIC METABOLIC PANEL Routine 02/25/2024 8:20 PM ROUTING EQUIPMENT TENDER CBC WITH AUTO DIFFERENTIAL Routine 02/25/2024 8:20 PM ROUTING EQUIPMENT TENDER POCT GLUCOSE DEVICE Routine 02/25/2024 4 :16 PM ROUTING EQUIPMENT TENDER POCT GLUCOSE DEVICE Routine 02/25/2024 12:00 PM ROUTING EQUIPMENT TENDER POCT GLUCOSE DEVICE Routine 02/25/2024 7 :44 AM ROUTING EQUIPMENT TENDER EGFR Routine 2024 8:57 PM ROUTING EQUIPMENT TENDER DIFFERENTIAL AUTO Routine 2024 8:5 7 PM ROUTING EQUIPMENT TENDER BASIC METABOLIC PANEL Routine 2024 8:57 PM ROUTING EQUIPMENT TENDER CBC WITH AUTO DIFFERENTIAL Routine 2024 8:57 PM ROUTING EQUIPMENT TENDER POCT GLUCOSE DEVICE Routine 2024 8 :50 PM ROUTING EQUIPMENT TENDER POCT GLUCOSE DEVICE Routine 2024 4 :23 PM ROUTING EQUIPMENT TENDER POCT GLUCOSE DEVICE Routine 2024 11:49 AM ROUTING EQUIPMENT TENDER POCT GLUCOSE DEVICE Routine 2024 8 :09 AM ROUTING EQUIPMENT TENDER EGFR Routine 02/23/2024 9:16 PM ROUTING EQUIPMENT TENDER BASIC METABOLIC PANEL Routine 02/23/2024 9:16 PM ROUTING EQUIPMENT TENDER POCT GLUCOSE DEVICE Routine 02/23/2024 8 :04 PM ROUTING EQUIPMENT TENDER DIFFERENTIAL AUTO Routine 02/23/2024 6:3 0 PM ROUTING EQUIPMENT TENDER CBC WITH AUTO DIFFERENTIAL Routine 02/23/2024 6:30 PM ROUTING EQUIPMENT TENDER POCT GLUCOSE DEVICE Routine 02/23/2024 4 :03 PM ROUTING EQUIPMENT TENDER ATHERECTOMY/LEXIE MAJOR CORONARY Routine 02/23/2024 3:20 PM ROUTING EQUIPMENT TENDER Coronary artery disease of [place] artery of [place] heart with stable angina pectoris (HCC) POCT ACTIVATED CLOTTING TIME, LOW RANGE Routine 02/23/2024 3:15 PM ROUTING EQUIPMENT TENDER POCT ACTIVATED CLOTTING TIME, LOW RANGE Routine 02/23/2024 2:01 PM ROUTING EQUIPMENT TENDER POCT ACTIVATED CLOTTING TIME, LOW RANGE Routine 02/23/2024 1:43 PM ROUTING EQUIPMENT TENDER POCT GLUCOSE DEVICE Routine 02/23/2024 10:15 AM ROUTING EQUIPMENT TENDER POCT GLUCOSE DEVICE Routine 02/23/2024 8 :47 AM ROUTING EQUIPMENT TENDER TRANSTHORACIC ECHO (TTE) COMPLETE W DOPPLER/CF W CONTRAST Routine 02/23/2024 8:43 AM ROUTING EQUIPMENT TENDER TROPONIN I HIGH-SENSITIVITY STAT 02/22/2024 10:46 PM ROUTING EQUIPMENT TENDER XR CHEST 1 VIEW IP Routine 02/22/2024 9:35 PM ROUTING EQUIPMENT TENDER POCT GLUCOSE DEVICE Routine 02/22/2024 9 :11 PM ROUTING EQUIPMENT TENDER VITAMIN B12 STAT 02/22/2024 8:42 PM ROUTING EQUIPMENT TENDER EGFR STAT 02/22/2024 8:42 PM ROUTING EQUIPMENT TENDER T4, FREE STAT 02/22/2024 8:42 PM ROUTING EQUIPMENT TENDER DIFFERENTIAL AUTO STAT 02/22/2024 8:4 2 PM ROUTING EQUIPMENT TENDER THYROID FUNCTION CASCADE STAT 02/22/2024 8:42 PM ROUTING EQUIPMENT TENDER PHOSPHORUS STAT 02/22/2024 8:42 PM ROUTING EQUIPMENT TENDER MAGNESIUM STAT 02/22/2024 8:42 PM ROUTING EQUIPMENT TENDER PRO B-TYPE NATRIURETIC PEPTIDE STAT 02/22/2024 8:42 PM ROUTING EQUIPMENT TENDER TROPONIN I HIGH-SENSITIVITY STAT 02/22/2024 8:42 PM ROUTING EQUIPMENT TENDER TYPE AND SCREEN STAT 02/22/2024 8:42 PM ROUTING EQUIPMENT TENDER APTT STAT 02/22/2024 8:42 PM ROUTING EQUIPMENT TENDER PROTIME-INR STAT 02/22/2024 8:42 PM ROUTING EQUIPMENT TENDER COMPREHENSIVE METABOLIC PANEL STAT 02/22/2024 8:42 PM ROUTING EQUIPMENT TENDER CBC WITH AUTO DIFFERENTIAL STAT 02/22/2024 8:42 PM ROUTING EQUIPMENT TENDER RESPIRATORY PATHOGEN PANEL Routine 02/22/2024 8:42 PM ROUTING EQUIPMENT TENDER EGFR Routine 02/13/2024 9:23 AM ROUTING EQUIPMENT TENDER Type 2 diabetes mellitus with stage 4 chronic kidney disease, with long-term current use of insulin (HCC) Essential hypertension EGFR Routine 02/13/2024 9:23 AM ROUTING EQUIPMENT TENDER Chronic systolic congestive heart failure (CMS/HCC) (HCC) Atherosclerosis of [place] coronary artery of [place] heart with stable angina pectoris (CMS/HCC) (HCC) DIFFERENTIAL AUTO Routine 02/13/2024 9:2 3 AM ROUTING EQUIPMENT TENDER Chronic systolic congestive heart failure (CMS/HCC) (HCC) Atherosclerosis of [place] coronary artery of [place] heart with stable angina pectoris (CMS/HCC) (HCC) DIFFERENTIAL AUTO Routine 02/13/2024 9:2 3 AM ROUTING EQUIPMENT TENDER Type 2 diabetes mellitus with stage 4 chronic kidney disease, with long-term current use of insulin (HCC) Essential hypertension CBC WITH AUTO DIFFERENTIAL Routine 02/13/2024 9:23 AM ROUTING EQUIPMENT TENDER Chronic systolic congestive heart failure (CMS/HCC) (HCC) Atherosclerosis of [place] coronary artery of [place] heart with stable angina pectoris (CMS/HCC) (HCC) BASIC METABOLIC PANEL Routine 02/13/2024 9:23 AM ROUTING EQUIPMENT TENDER Chronic systolic congestive heart failure (CMS/HCC) (HCC) Atherosclerosis of [place] coronary artery of [place] heart with stable angina pectoris (CMS/HCC) (HCC) VITAMIN D 25 HYDROXY Routine 02/13/2024 9:23 AM ROUTING EQUIPMENT TENDER Vitamin D deficiency LIPID PANEL Routine 02/13/2024 9:23 AM ROUTING EQUIPMENT TENDER Type 2 diabetes mellitus with stage 4 chronic kidney disease, with long-term current use of insulin (CMS/HCC) (HCC) Mixed hyperlipidemia COMPREHENSIVE METABOLIC PANEL Routine 02/13/2024 9:23 AM ROUTING EQUIPMENT TENDER Type 2 diabetes mellitus with stage 4 chronic kidney disease, with long-term current use of insulin (CMS/HCC) (HCC) Essential hypertension CBC WITH AUTO DIFFERENTIAL Routine 02/13/2024 9:23 AM ROUTING EQUIPMENT TENDER Type 2 diabetes mellitus with stage 4 chronic kidney disease, with long-term current use of insulin (CMS/HCC) (HCC) Essential hypertension HEMOGLOBIN A1C Routine 02/13/2024 9:23 AM ROUTING EQUIPMENT TENDER Type 2 diabetes mellitus with stage 4 chronic kidney disease, with long-term current use of insulin (CMS/HCC) (HCC) LEFT HEART CATHETERIZATION WITH CORONARY ANGIOGRAPHY AND WITH AND WITHOUT LEFT VENTRICULOGRAM Routine 02/06/2024 9:20 AM ROUTING EQUIPMENT TENDER Atherosclerosis of [place] coronary artery of [place] heart with stable angina pectoris (CMS/HCC) (HCC) Chronic systolic congestive heart failure (CMS/HCC) (HCC) POCT ACTIVATED CLOTTING TIME, LOW RANGE Routine 02/06/2024 9:18 AM ROUTING EQUIPMENT TENDER POCT GLUCOSE DEVICE Routine 02/06/2024 7 :40 AM ROUTING EQUIPMENT TENDER ECG 12-LEAD Routine 02/06/2024 7:14 AM ROUTING EQUIPMENT TENDER EGFR STAT 02/06/2024 6:50 AM ROUTING EQUIPMENT TENDER BASIC METABOLIC PANEL STAT 02/06/2024 6:50 AM ROUTING EQUIPMENT TENDER EGFR Routine 02/01/2024 12:36 PM ROUTING EQUIPMENT TENDER Atherosclerosis of [place] coronary artery of [place] heart with stable angina pectoris (CMS/HCC) (HCC) Chronic systolic congestive heart failure (CMS/HCC) (HCC) DIFFERENTIAL AUTO Routine 02/01/2024 12:36 PM ROUTING EQUIPMENT TENDER Atherosclerosis of [place] coronary artery of [place] heart with stable angina pectoris (CMS/HCC) (HCC) Chronic systolic congestive heart failure (CMS/HCC) (HCC) BASIC METABOLIC PANEL Routine 02/01/2024 12:36 PM ROUTING EQUIPMENT TENDER Atherosclerosis of [place] coronary artery of [place] heart with stable angina pectoris (CMS/HCC) (HCC) Chronic systolic congestive heart failure (CMS/HCC) (HCC) CBC WITH AUTO DIFFERENTIAL Routine 02/01/2024 12:36 PM ROUTING EQUIPMENT TENDER Atherosclerosis of [place] coronary artery of ug[place] heart with stable angina pectoris (CMS/HCC) (HCC) Chronic systolic congestive heart failure (CMS/HCC) (HCC) POC INFLUENZA A/B, COVID-19 ANTIGEN Routine 01/25/2024 4:17 PM ROUTING EQUIPMENT TENDER Cough, unspecified type EGFR Routine 01/17/2024 3:16 PM ROUTING EQUIPMENT TENDER Atherosclerosis of [place] coronary artery of [place] heart with stable angina pectoris (CMS/HCC) (HCC) Chronic systolic congestive heart failure (CMS/HCC) (HCC) DIFFERENTIAL AUTO Routine 01/17/2024 3:1 6 PM ROUTING EQUIPMENT TENDER Atherosclerosis of [place] coronary artery of [place] heart with stable angina pectoris (CMS/HCC) (HCC) Chronic systolic congestive heart failure (CMS/HCC) (HCC) PRO B-TYPE NATRIURETIC PEPTIDE Routine 01/17/2024 3:16 PM ROUTING EQUIPMENT TENDER Chronic systolic heart failure (CMS/HCC) (HCC) BASIC METABOLIC PANEL Routine 01/17/2024 3:16 PM ROUTING EQUIPMENT TENDER Atherosclerosis of [place] coronary artery of [place] heart with stable angina pectoris (CMS/HCC) (HCC) Chronic systolic congestive heart failure (CMS/HCC) (HCC) CBC WITH AUTO DIFFERENTIAL Routine 01/17/2024 3:16 PM ROUTING EQUIPMENT TENDER Atherosclerosis of [place] coronary artery of ug[place] heart with stable angina pectoris (CMS/HCC) (HCC) [...] Results * (ABNORMAL) eGFR (03/21/2024 1:02 PM ROUTING EQUIPMENT TENDER) eGFR 34(L) >=60 mL/min/1. 73 m2 Comment: [...] last reviewed 2020. Blood 03/21/2024 1:02 PM ROUTING EQUIPMENT TENDER 03/21/2024 3:50 PM ROUTING EQUIPMENT TENDER us Aiyana Baldwin NP LAB BLOOD ORDERABLES Final Result [facility] [facility] Department [place] [address] * (ABNORMAL) Pro B-type natriuretic peptide (03/21/2024 1:02 PM ROUTING EQUIPMENT TENDER) NT-proBNP 2,244(H) <=300 pg/mL Comment: Interpretive Comments: [...] Revised Date: 2017. Blood 03/21/2024 1:02 PM ROUTING EQUIPMENT TENDER 03/21/2024 3:50 PM ROUTING EQUIPMENT TENDER us Aiyana Baldwin NP LAB BLOOD ORDERABLES Final Result [facility] [place]) [facility] Department [place] [address] * (ABNORMAL) Basic metabolic panel (03/21/2024 1:02 PM ROUTING EQUIPMENT TENDER) Sodium 144 135 - 145 mmol/L Potassium, pl 3.8 3.3 - 4.9 mmol/L [facility] ([place]) Chloride 101 97 - 110 mmol/L [facility] ([place]) CO2 29 22 - 32 mmol/L [facility] ([place]) Anion gap 14 2 - 15 mmol/L [facility] ([place]) BUN 33(H) 6 - 25 mg/dL [facility] ([place]) Creatinine 1.64(H) 0.60 - 1.10 mg/dL [facility] ([place]) Glucose 131 70 - 199 mg/dL [facility] ([place]) Comment: Interpretive Data Fasting glucose [...] 2022. Calcium 10.2 8.5 - 10.3 mg/dL [facility] ([place]) Blood 03/21/2024 1:02 PM ROUTING EQUIPMENT TENDER 03/21/2024 3:50 PM ROUTING EQUIPMENT TENDER us Aiyana Baldwin NP LAB BLOOD ORDERABLES Final Result [facility] ([place]) 1 [facility] Department [place] [address] * (ABNORMAL) eGFR (03/05/2024 11:01 AM ROUTING EQUIPMENT TENDER) eGFR 29(L) >=60 mL/min/1. 73 m2 Comment: [...] reviewed 2020. Blood 03/05/2024 11:0 1 AM ROUTING EQUIPMENT TENDER 03/05/2024 11:52 AM ROUTING EQUIPMENT TENDER Aiyana Baldwin NP LAB BLOOD ORDERABLES Final Result [facility] One [facility] Department [place] [address] * (ABNORMAL) Differential, auto (03/05/2024 11:01 AM ROUTING EQUIPMENT TENDER) Neutrophil abs 7.9(H) 1.5 - 6.5 K/cumm Imm gran abs 0.1 0.0 - 0.1 K/cumm [facility] Lymphocyte abs 1.1 0.8 - 3.3 K/cumm [facility] Monocyte abs 0.7 0.2 - 0.8 K/cumm [facility] Eosinophil abs 0.3 0.0 - 0.5 K/cumm [facility] Basophil abs 0.1 0.0 - 0.1 K/cumm [facility] Neutrophil pct 78.8 % [facility] Comment: Interpretive Data Percent cell count reference ranges are not reported, since discordance with absolute values may lead to misinterpretation of CBC data. Current Interpretive Data was last revised on 2017. Imm gran pct 0.5 % [facility] Comment: Interpretive Data Percent cell count reference ranges are not reported, since discordance with absolute values may lead to misinterpretation of CBC data. Current Interpretive Data was last revised on 2017. Lymphocyte pct 10.5 % [facility] Comment: Interpretive Data Percent cell count reference ranges are not reported, since discordance with absolute values may lead to misinterpretation of CBC data. Current Interpretive Data was last revised on 2017. Monocyte pct 6.5 % [facility] Comment: Interpretive Data Percent cell count reference ranges are not reported, since discordance with absolute values may lead to misinterpretation of CBC data. Current Interpretive Data was last revised on 2017. Eosinophil pct 3.2 % [facility] Comment: Interpretive Data Percent cell count reference ranges are not reported, since discordance with absolute values may lead to misinterpretation of CBC data. Current Interpretive Data was last revised on 2017. Basophil pct 0.5 % [facility] Comment: Interpretive Data Percent cell count reference ranges are not reported, since discordance with absolute values may lead to misinterpretation of CBC data. Current Interpretive Data was last revised on 2017. Blood 03/05/2024 11:0 1 AM ROUTING EQUIPMENT TENDER 03/05/2024 11:46 AM ROUTING EQUIPMENT TENDER Aiyana Baldwin [employer] TECH[employer]IAN LAB BLOOD ORDERABLES Final Result [facility] One [facility] Department [place] [address] * (ABNORMAL) Pro B-type natriuretic peptide (03/05/2024 11:01 AM ROUTING EQUIPMENT TENDER) NT-proBNP 1,014(H) <=300 pg/mL Comment: Interpretive Comments: [...] Date: 2017. Blood 03/05/2024 11:0 1 AM ROUTING EQUIPMENT TENDER 03/05/2024 11:46 AM ROUTING EQUIPMENT TENDER Aiyana Baldwin NP LAB BLOOD ORDERABLES Final Result [facility] One [facility] Department [place] [address] * (ABNORMAL) CBC with auto differential (03/05/2024 11:01 AM ROUTING EQUIPMENT TENDER) WBC 10.1(H) 3.8 - 9.9 K/cumm Hgb 11.1(L) 11.9 - 15.5 g/dL [facility] Hct 35.8 35.6 - 45.5 % [facility] Plt 272 150 - 400 K/cumm [facility] MPV 10.0 9.1 - 12.3 fL [facility] RBC 3.68(L) 3.90 - 5.20 M/cumm [facility] MCV 97.3(H) 81.3 - 96.4 fL [facility] MCH 30.2 27.1 - 33.3 pg [facility] MCHC 31.0(L) 32.3 - 35.7 g/dL [facility] RDW CV 15.1(H) 11.1 - 14.9 % [facility] RDW SD 53.5(H) 35.7 - 48.1 fL [facility] NRBC abs 0.00 0.00 - 0.01 K/cumm [facility] Blood 03/05/2024 11:0 1 AM ROUTING EQUIPMENT TENDER 03/05/2024 11:46 AM ROUTING EQUIPMENT TENDER Aiyana Baldwin [employer] TECHNICIAN LAB BLOOD ORDERABLES Final Result [facility] One [facility] Department [place] [address] * (ABNORMAL) Basic metabolic panel (03/05/2024 11:01 AM ROUTING EQUIPMENT TENDER) Sodium 145 135 - 145 mmol/L Potassium, pl 4.6 3.3 - 4.9 mmol/L [facility] Chloride 102 97 - 110 mmol/L [facility] CO2 31 22 - 32 mmol/L [facility] Anion gap 12 2 - 15 mmol/L [facility] BUN 38(H) 6 - 25 mg/dL [facility] Creatinine 1.90(H) 0.60 - 1.10 mg/dL [facility] Glucose 202(H) 70 - 199 mg/dL [facility] Comment: Interpretive Data Fasting glucose >/= [...] 2022. Calcium 8.9 8.5 - 10.3 mg/dL [facility] Blood 03/05/2024 11:0 1 AM ROUTING EQUIPMENT TENDER 03/05/2024 11:46 AM ROUTING EQUIPMENT TENDER Aiyana Baldwin [employer] TECHNICIAN LAB BLOOD ORDERABLES Final Result Performing Organization Address [facility]/ZIP Co de Phone Number [facility] Department [place] [address] * (ABNORMAL) eGFR (02/26/2024 11:48 AM ROUTING EQUIPMENT TENDER) Pathologist [facility] eGFR 26(L) >=60 mL/min/1. 73 m2 Comment: [...] reviewed 2020. Blood 02/26/2024 11:4 8 AM ROUTING EQUIPMENT TENDER 02/26/2024 12:22 PM ROUTING EQUIPMENT TENDER us Davi Carvajal MD LAB BLOOD ORDERABLES Final R esult [facility] Department [place] [address] * (ABNORMAL) Basic metabolic panel (02/26/2024 11:48 AM ROUTING EQUIPMENT TENDER) Pathologist [facility] Sodium 143 135 - 145 mmol/L Potassium, pl 4.9 3.3 - 4.9 mmol/L [facility] Chloride 105 97 - 110 mmol/L [facility] CO2 31 22 - 32 mmol/L [facility] Anion gap 7 2 - 15 mmol/L [facility] BUN 55(H) 6 - 25 mg/dL [facility] Creatinine 2.07(H) 0.60 - 1.10 mg/dL [facility] Glucose 170 70 - 199 mg/dL [facility] Comment: Interpretive Data Fasting glucose >/= [...] 2022. Calcium 8.9 8.5 - 10.3 mg/dL [facility] Blood 02/26/2024 11:4 8 AM ROUTING EQUIPMENT TENDER 02/26/2024 12:22 PM ROUTING EQUIPMENT TENDER Davi Carvajal MD LAB BLOOD ORDERABLES Final R esult Performing Organization Address City/[facility]/ZIP Co de Phone Number [facility] [place] [address] * POCT glucose (02/26/2024 11:05 AM ROUTING EQUIPMENT TENDER) Glucose, POC 185 70 - 199 mg/dL Blood 02/26/2024 11:0 5 AM ROUTING EQUIPMENT TENDER 02/26/2024 11:05 AM ROUTING EQUIPMENT TENDER Amena William MD LAB POCT ORDERABLES - D EVICE Final Result [facility] [place] [address] * POCT glucose (02/26/2024 7:54 AM ROUTING EQUIPMENT TENDER) Glucose, POC 180 70 - 199 mg/dL Blood 02/26/2024 7:54 AM ROUTING EQUIPMENT TENDER 02/26/2024 7:54 AM ROUTING EQUIPMENT TENDER Amena William MD LAB POCT ORDERABLES - D EVICE Final Result [facility] [place] [address] * POCT glucose (02/25/2024 8:40 PM ROUTING EQUIPMENT TENDER) Glucose, POC 175 70 - 199 mg/dL Blood 02/25/2024 8:40 PM ROUTING EQUIPMENT TENDER 02/25/2024 8:40 PM ROUTING EQUIPMENT TENDER Amena William MD LAB POCT ORDERABLES - D EVICE Final Result Performing Organization Address [facility] Co de Phone Number [facility] [place] [address] * (ABNORMAL) eGFR (02/25/2024 8:20 PM ROUTING EQUIPMENT TENDER) eGFR 23(L) >=60 mL/min/1. 73 m2 Comment: [...] last reviewed 2020. Blood 02/25/2024 8:20 PM ROUTING EQUIPMENT TENDER 02/25/2024 9:01 PM ROUTING EQUIPMENT TENDER us Jovany Mishra MD LAB BLOOD ORDERABLES Final Result [facility] [facility] [place] [address] * Differential, auto (02/25/2024 8:20 PM ROUTING EQUIPMENT TENDER) Neutrophil abs 6.5 1.5 - 6.5 K/cumm Imm gran abs 0.0 0.0 - 0.1 K/cumm [facility] Lymphocyte abs 1.0 0.8 - 3.3 K/cumm [facility] Monocyte abs 0.7 0.2 - 0.8 K/cumm [facility] Eosinophil abs 0.3 0.0 - 0.5 K/cumm [facility] Basophil abs 0.0 0.0 - 0.1 K/cumm [facility] Neutrophil pct 75.7 % [facility] Comment: Interpretive Data Percent cell count reference ranges are not reported, since discordance with absolute values may lead to misinterpretation of CBC data. Current Interpretive Data was last revised on 2017. Imm gran pct 0.4 % [facility] Comment: Interpretive Data Percent cell count reference ranges are not reported, since discordance with absolute values may lead to misinterpretation of CBC data. Current Interpretive Data was last revised on 2017. Lymphocyte pct 12.1 % [facility] Comment: Interpretive Data Percent cell count reference ranges are not reported, since discordance with absolute values may lead to misinterpretation of CBC data. Current Interpretive Data was last revised on 2017. Monocyte pct 8.0 % [facility] Comment: Interpretive Data Percent cell count reference ranges are not reported, since discordance with absolute values may lead to misinterpretation of CBC data. Current Interpretive Data was last revised on 2017. Eosinophil pct 3.4 % [facility] Comment: Interpretive Data Percent cell count reference ranges are not reported, since discordance with absolute values may lead to misinterpretation of CBC data. Current Interpretive Data was last revised on 2017. Basophil pct 0.4 % [facility] Comment: Interpretive Data Percent cell count reference ranges are not reported, since discordance with absolute values may lead to misinterpretation of CBC data. Current Interpretive Data was last revised on 2017. Blood 02/25/2024 8:20 PM ROUTING EQUIPMENT TENDER 02/25/2024 9:00 PM ROUTING EQUIPMENT TENDER Jovany Mishra MD LAB BLOOD ORDERABLES Final Result Performing Organization Address [facility] Co de Phone Number [facility] Department [place] [address] * (ABNORMAL) CBC with auto differential (02/25/2024 8:20 PM ROUTING EQUIPMENT TENDER) [facility] WBC 8.5 3.8 - 9.9 K/cumm Hgb 9.7(L) 11.9 - 15.5 g/dL [facility] Hct 33.0(L) 35.6 - 45.5 % [facility] Plt 216 150 - 400 K/cumm [facility] MPV 9.8 9.1 - 12.3 fL [facility] RBC 3.25(L) 3.90 - 5.20 M/cumm [facility] MCV 101.5(H) 81.3 - 96.4 fL [facility] MCH 29.8 27.1 - 33.3 pg [facility] MCHC 29.4(L) 32.3 - 35.7 g/dL [facility] RDW CV 14.4 11.1 - 14.9 % [facility] RDW SD 54.0(H) 35.7 - 48.1 fL [facility] NRBC abs 0.00 0.00 - 0.01 K/cumm [facility] Blood 02/25/2024 8:20 PM ROUTING EQUIPMENT TENDER 02/25/2024 9:00 PM ROUTING EQUIPMENT TENDER Jovany Mishra MD LAB BLOOD ORDERABLES Final Result Performing Organization Address City/[facility]/ZIP Co de Phone Number [facility] Department [place] [address] * (ABNORMAL) Basic metabolic panel (02/25/2024 8:20 PM ROUTING EQUIPMENT TENDER) Sodium 145 135 - 145 mmol/L Potassium, pl 4.4 3.3 - 4.9 mmol/L [facility] Chloride 105 97 - 110 mmol/L [facility] CO2 33(H) 22 - 32 mmol/L [facility] Anion gap 7 2 - 15 mmol/L [facility] BUN 53(H) 6 - 25 mg/dL [facility] Creatinine 2.32(H) 0.60 - 1.10 mg/dL [facility] Glucose 175 70 - 199 mg/dL [facility] Comment: Interpretive Data Fasting glucose >/= [...] 2022. Calcium 9.0 8.5 - 10.3 mg/dL [facility] Blood 02/25/2024 8:20 PM ROUTING EQUIPMENT TENDER 02/25/2024 9:01 PM ROUTING EQUIPMENT TENDER us Jovany Mishra MD LAB BLOOD ORDERABLES Final Result Performing Organization Address [facility]/ZIP Co de Phone Number [facility] [place] [address] * POCT glucose (02/25/2024 4:16 PM ROUTING EQUIPMENT TENDER) Glucose, POC 159 70 - 199 mg/dL Blood 02/25/2024 4:16 PM ROUTING EQUIPMENT TENDER 02/25/2024 4:16 PM ROUTING EQUIPMENT TENDER us Amena William MD LAB POCT ORDERABLES - D EVICE Final Result Performing Organization Address [facility]/ZIP Co de Phone Number [facility] Department [place] [address] * POCT glucose (02/25/2024 12:00 PM ROUTING EQUIPMENT TENDER) Glucose, POC 161 70 - 199 mg/dL Blood 02/25/2024 12:0 0 PM ROUTING EQUIPMENT TENDER 02/25/2024 12:00 PM ROUTING EQUIPMENT TENDER us Amena William MD LAB POCT ORDERABLES - D EVICE Final Result Performing Organization Address City/State/[facility] Co de Phone Number [facility] [place] [address] * POCT glucose (02/25/2024 7:44 AM ROUTING EQUIPMENT TENDER) Glucose, POC 159 70 - 199 mg/dL Blood 02/25/2024 7:44 AM ROUTING EQUIPMENT TENDER 02/25/2024 7:44 AM ROUTING EQUIPMENT TENDER us Amena William MD LAB POCT ORDERABLES - D EVICE Final Result Performing Organization Address City/[facility] [place] [address] * (ABNORMAL) eGFR (2024 8:57 PM ROUTING EQUIPMENT TENDER) eGFR 24(L) >=60 mL/min/1. 73 m2 Comment: [...] last reviewed 2020. Blood 2024 8:57 PM ROUTING EQUIPMENT TENDER 2024 9:32 PM ROUTING EQUIPMENT TENDER us Jovany Mishra MD LAB BLOOD ORDERABLES Final Result [facility] Department [place] [address] * Differential, auto (2024 8:57 PM ROUTING EQUIPMENT TENDER) Neutrophil abs 6.4 1.5 - 6.5 K/cumm Imm gran abs 0.0 0.0 - 0.1 K/cumm [facility] Lymphocyte abs 0.9 0.8 - 3.3 K/cumm [facility] Monocyte abs 0.6 0.2 - 0.8 K/cumm [facility] Eosinophil abs 0.2 0.0 - 0.5 K/cumm [facility] Basophil abs 0.0 0.0 - 0.1 K/cumm [facility] Neutrophil pct 78.3 % [facility] Comment: Interpretive Data Percent cell count reference ranges are not reported, since discordance with absolute values may lead to misinterpretation of CBC data. Current Interpretive Data was last revised on 2017. Imm gran pct 0.4 % [facility] Comment: Interpretive Data Percent cell count reference ranges are not reported, since discordance with absolute values may lead to misinterpretation of CBC data. Current Interpretive Data was last revised on 2017. Lymphocyte pct 11.1 % [facility] Comment: Interpretive Data Percent cell count reference ranges are not reported, since discordance with absolute values may lead to misinterpretation of CBC data. Current Interpretive Data was last revised on 2017. Monocyte pct 7.7 % [facility] Comment: Interpretive Data Percent cell count reference ranges are not reported, since discordance with absolute values may lead to misinterpretation of CBC data. Current Interpretive Data was last revised on 2017. Eosinophil pct 2.1 % [facility] Comment: Interpretive Data Percent cell count reference ranges are not reported, since discordance with absolute values may lead to misinterpretation of CBC data. Current Interpretive Data was last revised on 2017. Basophil pct 0.4 % [facility] Comment: Interpretive Data Percent cell count reference ranges are not reported, since discordance with absolute values may lead to misinterpretation of CBC data. Current Interpretive Data was last revised on 2017. Blood 2024 8:57 PM ROUTING EQUIPMENT TENDER 2024 9:32 PM ROUTING EQUIPMENT TENDER Jovany Mishra MD LAB BLOOD ORDERABLES Final Result [facility] Department [place] [address] * (ABNORMAL) CBC with auto differential (2024 8:57 PM ROUTING EQUIPMENT TENDER) Pathologist [facility] WBC 8.1 3.8 - 9.9 K/cumm Hgb 9.7(L) 11.9 - 15.5 g/dL [facility] Hct 32.9(L) 35.6 - 45.5 % [facility] Plt 206 150 - 400 K/cumm [facility] MPV 9.8 9.1 - 12.3 fL [facility] RBC 3.20(L) 3.90 - 5.20 M/cumm [facility] MCV 102.8(H) 81.3 - 96.4 fL [facility] MCH 30.3 27.1 - 33.3 pg [facility] MCHC 29.5(L) 32.3 - 35.7 g/dL [facility] RDW CV 14.4 11.1 - 14.9 % [facility] RDW SD 54.2(H) 35.7 - 48.1 fL [facility] NRBC abs 0.00 0.00 - 0.01 K/cumm [facility] Blood 2024 8:57 PM ROUTING EQUIPMENT TENDER 2024 9:32 PM ROUTING EQUIPMENT TENDER us Jovany Mishra MD LAB BLOOD ORDERABLES Final Result [facility] Department [place] [address] * (ABNORMAL) Basic metabolic panel (2024 8:57 PM ROUTING EQUIPMENT TENDER) Sodium 147(H) 135 - 145 mmol/L Potassium, pl 4.2 3.3 - 4.9 mmol/L [facility] Chloride 104 97 - 110 mmol/L [facility] CO2 34(H) 22 - 32 mmol/L [facility] Anion gap 9 2 - 15 mmol/L [facility] BUN 47(H) 6 - 25 mg/dL [facility] Creatinine 2.21(H) 0.60 - 1.10 mg/dL [facility] Glucose 189 70 - 199 mg/dL [facility] Comment: Interpretive Data Fasting glucose >/= [...] 2022. Calcium 9.0 8.5 - 10.3 mg/dL [facility] Blood 2024 8:57 PM ROUTING EQUIPMENT TENDER 2024 9:32 PM ROUTING EQUIPMENT TENDER us Jovany Mishra MD LAB BLOOD ORDERABLES Final Result Performing Organization Address City/[facility]/ZIP Co de Phone Number [facility] Department [place] [address] * (ABNORMAL) POCT glucose (2024 8:50 PM ROUTING EQUIPMENT TENDER) Glucose, POC 240(H) 70 - 199 mg/dL Blood 2024 8:50 PM ROUTING EQUIPMENT TENDER 2024 8:50 PM ROUTING EQUIPMENT TENDER us Amena William MD LAB POCT ORDERABLES - D EVICE Final Result Performing Organization Address [facility] Co de Phone Number [facility] [place] [address] * POCT glucose (2024 4:23 PM ROUTING EQUIPMENT TENDER) Glucose, POC 155 70 - 199 mg/dL Blood 2024 4:23 PM ROUTING EQUIPMENT TENDER 2024 4:23 PM ROUTING EQUIPMENT TENDER us Amena William MD LAB POCT ORDERABLES - D EVICE Final Result Performing Organization Address [facility] de Phone Number [facility] [place] [address] * (ABNORMAL) POCT glucose (2024 11:49 AM ROUTING EQUIPMENT TENDER) Glucose, POC 267(H) 70 - 199 mg/dL Blood 2024 11:4 9 AM ROUTING EQUIPMENT TENDER 2024 11:49 AM ROUTING EQUIPMENT TENDER us Amena William MD LAB POCT ORDERABLES - D EVICE Final Result Performing Organization Address [facility] de Phone Number [facility] [place] [address] * POCT glucose (2024 8:09 AM ROUTING EQUIPMENT TENDER) Glucose, POC 146 70 - 199 mg/dL Blood 2024 8:09 AM ROUTING EQUIPMENT TENDER 2024 8:09 AM ROUTING EQUIPMENT TENDER us Amena William MD LAB POCT ORDERABLES - D EVICE Final Result Performing Organization Address [facility] Co de Phone Number [facility] [place] [address] * (ABNORMAL) eGFR (02/23/2024 9:16 PM ROUTING EQUIPMENT TENDER) eGFR 29(L) >=60 mL/min/1. 73 m2 Comment: [...] last reviewed 2020. Blood 02/23/2024 9:16 PM ROUTING EQUIPMENT TENDER 02/23/2024 10:01 PM ROUTING EQUIPMENT TENDER us Amena William MD LAB BLOOD ORDERABLES Fi nal Result Performing Organization Address [facility]/ZIP Co de Phone Number [facility] [place] [address] * (ABNORMAL) Basic metabolic panel (02/23/2024 9:16 PM ROUTING EQUIPMENT TENDER) Sodium 148(H) 135 - 145 mmol/L Potassium, pl 4.3 3.3 - 4.9 mmol/L [facility] Chloride 107 97 - 110 mmol/L [facility] CO2 32 22 - 32 mmol/L [facility] Anion gap 9 2 - 15 mmol/L [facility] BUN 42(H) 6 - 25 mg/dL [facility] Creatinine 1.92(H) 0.60 - 1.10 mg/dL [facility] Glucose 265(H) 70 - 199 mg/dL [facility] Comment: Interpretive Data Fasting glucose >/= [...] 2022. Calcium 9.2 8.5 - 10.3 mg/dL [facility] Blood 02/23/2024 9:16 PM ROUTING EQUIPMENT TENDER 02/23/2024 10:01 PM ROUTING EQUIPMENT TENDER us Jovany Mishra MD LAB BLOOD ORDERABLES Final Result Performing Organization Address City/[facility]/ZIP Co de Phone Number [facility] Department [place] [address] * POCT glucose (02/23/2024 8:04 PM ROUTING EQUIPMENT TENDER) Glucose, POC 184 70 - 199 mg/dL Blood 02/23/2024 8:04 PM ROUTING EQUIPMENT TENDER 02/23/2024 8:04 PM ROUTING EQUIPMENT TENDER us Amena William MD LAB POCT ORDERABLES - D MICAICE Final Result [facility] [place] [address] * (ABNORMAL) Differential, auto (02/23/2024 6:30 PM ROUTING EQUIPMENT TENDER) Neutrophil abs 7.1(H) 1.5 - 6.5 K/cumm Imm gran abs 0.0 0.0 - 0.1 K/cumm [facility] Lymphocyte abs 0.7(L) 0.8 - 3.3 K/cumm [facility] Monocyte abs 0.4 0.2 - 0.8 K/cumm [facility] Eosinophil abs 0.2 0.0 - 0.5 K/cumm [facility] Basophil abs 0.0 0.0 - 0.1 K/cumm [facility] Neutrophil pct 83.9 % [facility] Comment: Interpretive Data Percent cell count reference ranges are not reported, since discordance with absolute values may lead to misinterpretation of CBC data. Current Interpretive Data was last revised on 2017. Imm gran pct 0.5 % [facility] Comment: Interpretive Data Percent cell count reference ranges are not reported, since discordance with absolute values may lead to misinterpretation of CBC data. Current Interpretive Data was last revised on 2017. Lymphocyte pct 8.6 % [facility] Comment: Interpretive Data Percent cell count reference ranges are not reported, since discordance with absolute values may lead to misinterpretation of CBC data. Current Interpretive Data was last revised on 2017. Monocyte pct 4.7 % [facility] Comment: Interpretive Data Percent cell count reference ranges are not reported, since discordance with absolute values may lead to misinterpretation of CBC data. Current Interpretive Data was last revised on 2017. Eosinophil pct 1.8 % [facility] Comment: Interpretive Data Percent cell count reference ranges are not reported, since discordance with absolute values may lead to misinterpretation of CBC data. Current Interpretive Data was last revised on 2017. Basophil pct 0.5 % [facility] Comment: Interpretive Data Percent cell count reference ranges are not reported, since discordance with absolute values may lead to misinterpretation of CBC data. Current Interpretive Data was last revised on 2017. Blood 02/23/2024 6:30 PM ROUTING EQUIPMENT TENDER 02/23/2024 9:59 PM ROUTING EQUIPMENT TENDER Jovany Mishra MD LAB BLOOD ORDERABLES Final Result [facility] Department [place] [address] * (ABNORMAL) CBC with auto differential (02/23/2024 6:30 PM ROUTING EQUIPMENT TENDER) Pathologist [facility] WBC 8.5 3.8 - 9.9 K/cumm Hgb 11.3(L) 11.9 - 15.5 g/dL [facility] Hct 37.1 35.6 - 45.5 % [facility] Plt 225 150 - 400 K/cumm [facility] MPV 10.0 9.1 - 12.3 fL [facility] RBC 3.72(L) 3.90 - 5.20 M/cumm [facility] MCV 99.7(H) 81.3 - 96.4 fL [facility] MCH 30.4 27.1 - 33.3 pg [facility] MCHC 30.5(L) 32.3 - 35.7 g/dL [facility] RDW CV 14.6 11.1 - 14.9 % [facility] RDW SD 53.3(H) 35.7 - 48.1 fL [facility] NRBC abs 0.00 0.00 - 0.01 K/cumm [facility] Blood 02/23/2024 6:30 PM ROUTING EQUIPMENT TENDER 02/23/2024 9:59 PM ROUTING EQUIPMENT TENDER us Jovany Mishra MD LAB BLOOD ORDERABLES Final Result Performing Organization Address [facility] Co de Phone Number [facility] Department [place] [address] * POCT glucose (02/23/2024 4:03 PM ROUTING EQUIPMENT TENDER) Pathologist [facility] Glucose, POC 160 70 - 199 mg/dL Blood 02/23/2024 4:03 PM ROUTING EQUIPMENT TENDER 02/23/2024 4:03 PM ROUTING EQUIPMENT TENDER us Amena William MD LAB POCT ORDERABLES - D EVICE Final Result [facility] [place] [address] * ATHERECTOMY/LEXIE MAJOR CORONARY (02/23/2024 3:20 PM ROUTING EQUIPMENT TENDER) Anatomical Region Laterality Modality X-Ray Angiograph y Impressions 02/23/2024 3:58 PM ROUTING EQUIPMENT TENDER 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 female : 1960 MR number: [id number] Date of Service: 02/23/2024 Senior Office Assistant: MD Danica Zhao Christian Andrew, MD Referring [...] obtained. The patient was brought to the slabber and placed on the table Bilateral groins [...] Flow 3. Equipment used: 6 EBU 3.5, [place] IVUS Catheter, scion blue, fielder XT, pilot safety inspector 200, Fielder FC, microcatheter, 0.9 mm laser [...] glide sheath inserted without difficulty. A 6 Ethiopian EBU 3.5 guiding catheter was taken up [...] the main branch. We then took a Rough And Trueing Machine Operator 200 wire and again we are able [...] distal diagonal. We then placed a 6 Ethiopian GuideLiner coast up into the proximal LAD. [...] clotting time, low range (02/23/2024 3:15 PM ROUTING EQUIPMENT TENDER) ACT 290(H) 123 - 168 sec POC Performer [id number] [facility] POC Device Number [id number] [facility] Blood 02/23/2024 3:15 PM ROUTING EQUIPMENT TENDER 02/23/2024 3:15 PM ROUTING EQUIPMENT TENDER us Amena William MD LAB POCT ORDERABLES - D EVICE Final Result Performing Organization Address [facility] Co de Phone Number [facility] [place] [address] * (ABNORMAL) POCT Activated clotting time, low range (02/23/2024 2:01 PM ROUTING EQUIPMENT TENDER) ACT 360(H) 123 - 168 sec POC Performer [id number] [facility] POC Device Number [id number] [facility] Blood 02/23/2024 2:01 PM ROUTING EQUIPMENT TENDER 02/23/2024 2:01 PM ROUTING EQUIPMENT TENDER us Amena William MD LAB POCT ORDERABLES - D EVICE Final Result Performing Organization Address [facility] de Phone Number [facility] [place] [address] * (ABNORMAL) POCT Activated clotting time, low range (02/23/2024 1:43 PM ROUTING EQUIPMENT TENDER) ACT 244(H) 123 - 168 sec POC Performer [id number] [facility] POC Device Number [id number] [facility] Blood 02/23/2024 1:43 PM ROUTING EQUIPMENT TENDER 02/23/2024 1:43 PM ROUTING EQUIPMENT TENDER us Amena William MD LAB POCT ORDERABLES - D EVICE Final Result Performing Organization Address [facility] [place] [address] * POCT glucose (02/23/2024 10:15 AM ROUTING EQUIPMENT TENDER) Glucose, POC 138 70 - 199 mg/dL Blood 02/23/2024 10:1 5 AM ROUTING EQUIPMENT TENDER 02/23/2024 10:15 AM ROUTING EQUIPMENT TENDER Amena William MD LAB POCT ORDERABLES - D EVICE Final Result Performing Organization Address [facility] Co de Phone Number [facility] [address] * POCT glucose (02/23/2024 8:47 AM ROUTING EQUIPMENT TENDER) Glucose, POC 139 70 - 199 mg/dL Blood 02/23/2024 8:47 AM ROUTING EQUIPMENT TENDER 02/23/2024 8:47 AM ROUTING EQUIPMENT TENDER Amena William MD LAB POCT ORDERABLES - D EVICE Final Result Performing Organization Address [facility] de Phone Number [facility] [address] * TRANSTHORACIC ECHO (TTE) COMPLETE W DOPPLER/CF W CONTRAST (02/23/2024 8:43 AM ROUTING EQUIPMENT TENDER) Pathologist [facility] LV EF 35-40 % CONS SCIMAGE Anatomical Region Laterality Modality Ultrasound 02/23/2024 7:15 AM ROUTING EQUIPMENT TENDER Narrative 02/23/2024 1:35 PM ROUTING EQUIPMENT TENDER [facility] Cardiac [place] [address] Transthoracic Echocardiographic Report Patient Name: ABIGAIL TRIVEDI A : 1960 (63y 11m) Gender: F Study Date: 02/23/2024 07:15:01 AM Ht(Inch): 62 Wt(Lb): 304.01 BSA: 2.46 Seismology Teacher: Genna Saeed RDCS Location: [id number] Order Provider: GRETCHEN MCLAIN Heart Rate: 84 BMI: 55.6 BP: 162 / 67 Quality: The study images were of technically good quality. Ref Provider: GRETCHEN MCLAIN PROCEDURES: Echocardiographic Report: ([id number], [id number], [id number]) Transthoracic complete echo with strain imaging and [...] JOSE VTI 2.43 cm2 ESV 2D 42.53 JOSE Vmax 2.55 cm2 EF Teich 2D 65 [...] ESV Mod 2C 69.29 ml Med E` John 4.979 cm/sec [ 1.000 - 1.500 ] [...] LA Dimension 2C 6.57 cm PV Accel [place] 10.89 m/s LA Dimension 4C 6.80 cm [...] By: Kim Taylor MD 02/23/2024 10:15:19 AM ROUTING EQUIPMENT TENDER Electronically Signed By: Alonso Reardon MD 02/23/2024 1:34:00 PM ROUTING EQUIPMENT TENDER Wall Motion Analysis - Resting Procedure Note Alonso Reardon MD - 02/23/2024 [facility] Card[place] [address] Transthoracic Echocardiographic Report Patient Name: ABIGAIL TRIVEDI A : 1960 (63y 11m) Gender: F Study Date: 02/23/2024 07:15:01 AM Ht(Inch): 62 Wt(Lb): 304.01 BSA: 2.46 Seismology Teacher: Genna Saeed RDCS Location: [id number] Order Provider:GRETCHEN MCLAIN Heart Rate: 84 BMI: 55.6 BP: 162 / 67 Quality: The study images were oftechnically good quality. Ref Provider: GRETCHEN MCLAIN PROCEDURES: Echocardiographic Report: ([id number], [id number], [id number]) Transthoracic completeecho with strain imaging and contrast, [...] 41.00 - 133.00 ] MV A Peak Gwj275.72 cm/sec [ 1.00 - 1.20 ] EDV Mod 4C 159.70 ml MV E/A0.94 ratio [ 0.80 - 1.50 ] EDV Mod BP 154.97 ml [ 46.00 - 106.00 ] MV Decel Fquc298.75 msec [ 104.00 - 258.00 ] ESV [...] cm/m2 [ 10.00 - 18.00 ] RA Wswuyu45.50 ml RA Volume Index13.21 ml/m2 AoR Diam [...] By: Kim Taylor MD 02/23/2024 10:15:19 AM ROUTING EQUIPMENT TENDER Electronically Signed By: Alonso Reardon MD 02/23/2024 1:34:00 PM ROUTING EQUIPMENT TENDER [employer] - Resting us Gretchen Mclain MD CV ECHO PROCEDURES Final Res ult * (ABNORMAL) Troponin I high-sensitivity (02/22/2024 10:46 PM ROUTING EQUIPMENT TENDER) Trop I hs 25(H) <=17 ng/L Comment: Interpretive Data For further hscTnI resources including the diagnostic algorithm and an aid in interpretation, copy and paste this link: https://bjhlab.testcatalog.org/show/hsTrop-1 Current Interpretive Data last revised 2019. Blood 02/22/2024 10:4 6 PM ROUTING EQUIPMENT TENDER 02/22/2024 11:23 PM ROUTING EQUIPMENT TENDER us Amena William MD LAB BLOOD ORDERABLES Fi nal Result [facility] One [facility] [place] [address] * X-ray chest 1 view (Portable) (02/22/2024 9:35 PM ROUTING EQUIPMENT TENDER) Anatomical Region Laterality Modality Body, Chest N/A Computed Radiogr aphy 02/23/2024 8:46 AM ROUTING EQUIPMENT TENDER Impressions 02/23/2024 9:29 AM ROUTING EQUIPMENT TENDER Comparison made to 11/20/2023. Clear lungs with no pulmonary edema or consolidation. No pneumothorax or pleural effusion. Unchanged cardiomegaly. Dictated by: Dany Gibson M.D. The radiology attending physician has personally reviewed this study, and had reviewed and/or edited this written report and agrees with it. Electronically signed by: Denita Jimenez M.D. Narrative 02/23/2024 9:29 AM ROUTING EQUIPMENT TENDER EXAMINATION: 1 view chest radiograph Procedure Note Denita Jimenez MD - 02/23/2024 EXAMINATION: 1 view chest radiograph IMPRESSION: Comparison made to 11/20/2023. Clear lungs with no pulmonary edema or consolidation. No pneumothorax or pleural effusion. Unchanged cardiomegaly. Dictated by: Dany Gibson M.D. The radiology attending physician has personally reviewed this study, and had reviewed and/or edited this written report and agrees with it. Electronically signed by: Denita Jimenez M.D. us Gretchen Mclain MD IMG XR PROCEDURES Final Resu lt * POCT glucose (02/22/2024 9:11 PM ROUTING EQUIPMENT TENDER) Glucose, POC 144 70 - 199 mg/dL Blood 02/22/2024 9:11 PM ROUTING EQUIPMENT TENDER 02/22/2024 9:11 PM ROUTING EQUIPMENT TENDER us Gretchen Mclain MD LAB POCT ORDERABLES - DEVICE Final Result [facility] One [facility] Department [place] [address] * (ABNORMAL) Troponin I high-sensitivity (02/22/2024 8:42 PM ROUTING EQUIPMENT TENDER) Trop I hs 21(H) <=17 ng/L Comment: Interpretive Data For further hscTnI resources including the diagnostic algorithm and an aid in interpretation, copy and paste this link: https://bjhlab.testcatalog.org/show/hsTrop-1 Current Interpretive Data last revised 2019. Blood 02/22/2024 8:42 PM ROUTING EQUIPMENT TENDER 02/22/2024 9:27 PM ROUTING EQUIPMENT TENDER Gretchen Mclain MD LAB BLOOD ORDERABLES Final R esult [facility] [place] [address] * (ABNORMAL) eGFR (02/22/2024 8:42 PM ROUTING EQUIPMENT TENDER) Pathologist [facility] eGFR 28(L) >=60 mL/min/1. 73 m2 Comment: [...] last reviewed 2020. Blood 02/22/2024 8:42 PM ROUTING EQUIPMENT TENDER 02/22/2024 9:23 PM ROUTING EQUIPMENT TENDER Gretchen Mclain MD LAB BLOOD ORDERABLES Final R esult [facility] [place] [address] * Differential, auto (02/22/2024 8:42 PM ROUTING EQUIPMENT TENDER) Pathologist [facility] Neutrophil abs 6.5 1.5 - 6.5 K/cumm Imm gran abs 0.0 0.0 - 0.1 K/cumm [facility] Lymphocyte abs 1.2 0.8 - 3.3 K/cumm [facility] Monocyte abs 0.7 0.2 - 0.8 K/cumm [facility] Eosinophil abs 0.3 0.0 - 0.5 K/cumm [facility] Basophil abs 0.0 0.0 - 0.1 K/cumm [facility] Neutrophil pct 74.6 % [facility] Comment: Interpretive Data Percent cell count reference ranges are not reported, since discordance with absolute values may lead to misinterpretation of CBC data. Current Interpretive Data was last revised on 2017. Imm gran pct 0.5 % [facility] Comment: Interpretive Data Percent cell count reference ranges are not reported, since discordance with absolute values may lead to misinterpretation of CBC data. Current Interpretive Data was last revised on 2017. Lymphocyte pct 13.6 % [facility] Comment: Interpretive Data Percent cell count reference ranges are not reported, since discordance with absolute values may lead to misinterpretation of CBC data. Current Interpretive Data was last revised on 2017. Monocyte pct 7.6 % [facility] Comment: Interpretive Data Percent cell count reference ranges are not reported, since discordance with absolute values may lead to misinterpretation of CBC data. Current Interpretive Data was last revised on 2017. Eosinophil pct 3.2 % [facility] Comment: Interpretive Data Percent cell count reference ranges are not reported, since discordance with absolute values may lead to misinterpretation of CBC data. Current Interpretive Data was last revised on 2017. Basophil pct 0.5 % [facility] Comment: Interpretive Data Percent cell count reference ranges are not reported, since discordance with absolute values may lead to misinterpretation of CBC data. Current Interpretive Data was last revised on 2017. Blood 02/22/2024 8:42 PM ROUTING EQUIPMENT TENDER 02/22/2024 9:27 PM ROUTING EQUIPMENT TENDER us Gretchen Mclain MD LAB BLOOD ORDERABLES Final R esult [facility] One [facility] [place] [address] * (ABNORMAL) Pro B-type natriuretic peptide (02/22/2024 8:42 PM ROUTING EQUIPMENT TENDER) NT-proBNP 926(H) <=300 pg/mL Comment: Interpretive Comments: [...] as advanced age. - References: 1. Hailee JL et.al. Eur Heart J. 2006:27:330-337. 2. Etelvina RW, Krystina HOLLOWAY. J. AM Vinicio Cardiol: Cardiovasc Imag. 2009;2: 216- 225. Interpretive Data Last Revised Date: 2017. Blood 02/22/2024 8:42 PM ROUTING EQUIPMENT TENDER 02/22/2024 9:23 PM ROUTING EQUIPMENT TENDER us Gretchen Mclain MD LAB BLOOD ORDERABLES Final R esult [facility] One [facility] Department of Laboratories [place], [place] [id number] * (ABNORMAL) Thyroid Function [place] (02/22/2024 8:42 PM ROUTING EQUIPMENT TENDER) TSH 7.20(H) 0.30 - 4.20 mcIUnit/mL Blood 02/22/2024 8:42 PM ROUTING EQUIPMENT TENDER 02/22/2024 9:23 PM ROUTING EQUIPMENT TENDER Gretchen Mclain MD LAB BLOOD ORDERABLES Final R esult [facility] One [facility] Department [place] [address] * Respiratory pathogen panel Nasopharyngeal (02/22/2024 8:42 PM ROUTING EQUIPMENT TENDER) [facility] Influenza A RNA Not Detected Not Detected Influenza B RNA Not Detected Not Detected [facility] RSV RNA Not Detected Not Detected [facility] COVID-19 RNA Not Detected Not Detected [facility] Coronavirus 229E RNA Not Detected Not Detected [facility] Coronavirus HKU1 RNA Not Detected Not Detected [facility] Coronavirus NL63 RNA Not Detected Not Detected [facility] Coronavirus OC43 RNA Not Detected Not Detected [facility] Adenovirus DNA Not Detected Not Detected [facility] Metapneumovirus RNA Not Detected Not Detected [facility] Rhinovirus/Enterov irus RNA Not Detected Not Detected [facility] Parainfluenza 1 RNA Not Detected Not Detected [facility] Parainfluenza 2 RNA Not Detected Not Detected [facility] Parainfluenza 3 RNA Not Detected Not Detected [facility] Parainfluenza 4 RNA Not Detected Not Detected [facility] B. pertussis DNA Not Detected Not Detected [facility] B. parapertussis DNA Not Detected Not Detected [facility] C. pneumoniae DNA Not Detected Not Detected [facility] M. pneumoniae DNA Not Detected Not Detected [facility] Nasopharyngeal 02/22/2024 8: 42 PM ROUTING EQUIPMENT TENDER 02/22/2024 9:21 PM ROUTING EQUIPMENT TENDER Narrative [facility] - 02/22/2024 10:27 PM ROUTING EQUIPMENT TENDER Is the Patient experiencing symptoms consistent with COVID?->Yes Surveillance testing for transplant patient?->No Interpretive Data The jobandtalent FilmArray Respiratory Panel (RP2.1) assay is a [...] assay has FDA clearance for testing of DIPLOMA PHARMACY TECHNICIAN swabs. The performance of additional specimen types has been assessed by the performing laboratory. The performance characteristics of this assay have been determined by [facility] Molecular Infectious Disease Laboratory. Current interpretive data was last revised on 21. us Gretchen Mclain MD LAB MICROBIOLOGY - GENERAL O RDERABLES Final Result [facility] One [facility] Department [place] [address] * (ABNORMAL) CBC with auto differential (02/22/2024 8:42 PM ROUTING EQUIPMENT TENDER) Pathologist [facility] WBC 8.7 3.8 - 9.9 K/cumm Hgb 10.8(L) 11.9 - 15.5 g/dL [facility] Hct 35.5(L) 35.6 - 45.5 % [facility] Plt 224 150 - 400 K/cumm [facility] MPV 10.1 9.1 - 12.3 fL [facility] RBC 3.60(L) 3.90 - 5.20 M/cumm [facility] MCV 98.6(H) 81.3 - 96.4 fL [facility] MCH 30.0 27.1 - 33.3 pg [facility] MCHC 30.4(L) 32.3 - 35.7 g/dL [facility] RDW CV 14.7 11.1 - 14.9 % [facility] RDW SD 53.3(H) 35.7 - 48.1 fL [facility] NRBC abs 0.00 0.00 - 0.01 K/cumm [facility] Blood 02/22/2024 8:42 PM ROUTING EQUIPMENT TENDER 02/22/2024 9:27 PM ROUTING EQUIPMENT TENDER Gretchen Mclain MD LAB BLOOD ORDERABLES Final R esult [facility] One [facility] Department [place] [address] * (ABNORMAL) aPTT (02/22/2024 8:42 PM ROUTING EQUIPMENT TENDER) Pathologist [facility] aPTT 25(L) 28 - 38 sec Comment: Interpretive Data Heparin therapeutic range: 66.0 - 100.0 seconds. Range based on correlation with therapeutic heparin activity range of 0.3 - 0.7 Units/mL. Current interpretive data was last revised on 2022. Blood 02/22/2024 8:42 PM ROUTING EQUIPMENT TENDER 02/22/2024 9:23 PM ROUTING EQUIPMENT TENDER Gretchen Mclain MD LAB BLOOD ORDERABLES Final R esult Performing Organization Address [facility] Co de Phone Number [facility] [place] [address] * Protime-INR (02/22/2024 8:42 PM ROUTING EQUIPMENT TENDER) PT 10.4 9.7 - 13.0 sec INR 0.96 0.90 - 1.20 [facility] Comment: Interpretive data Oral anticoagulant therapeutic ranges: Venous thromboembolism prophylaxis or treatment: 2.0-3.0 CARDIOLOGY Standard range: 2.0-3.0 High-intensity range: 2.5-3.5 Refer to indication-specific guidelines for appropriate target ranges for prosthetic heart valve replacement. Current interpretive data was last revised on 2019. Blood 02/22/2024 8:42 PM ROUTING EQUIPMENT TENDER 02/22/2024 9:23 PM ROUTING EQUIPMENT TENDER Gretchen Mclain MD LAB BLOOD ORDERABLES Final R esult Performing Organization Address [facility] Co de Phone Number [facility] [place] [address] * Type and screen (02/22/2024 8:42 PM ROUTING EQUIPMENT TENDER) Arpit, indirect Negative ABO Rh A Positive [facility] Blood 02/22/2024 8:42 PM ROUTING EQUIPMENT TENDER 02/22/2024 9:46 PM ROUTING EQUIPMENT TENDER Narrative [facility] - 02/22/2024 10:42 PM ROUTING EQUIPMENT TENDER Has the patient had Daratumumab or Isatuximab in the past 6 months?->Unknown Gretchen Mclain MD LAB BLOOD BANK TEST ORDERABL ES Final Result Performing Organization Address [facility] Co de Phone Number [facility] [place] [address] * (ABNORMAL) T4, free (02/22/2024 8:42 PM ROUTING EQUIPMENT TENDER) Pathologist [facility] Free T4 0.65(L) 0.90 - 1.70 ng/dL Blood 02/22/2024 8:42 PM ROUTING EQUIPMENT TENDER 02/22/2024 9:23 PM ROUTING EQUIPMENT TENDER Narrative [facility] - 02/22/2024 10:23 PM ROUTING EQUIPMENT TENDER This test was reflexed from a TSH result. Gretchen Mclain MD LAB BLOOD ORDERABLES Edited Result - Final Performing Organization Address City/[facility] Co de Phone Number [facility] [place] [address] * Phosphorus (02/22/2024 8:42 PM ROUTING EQUIPMENT TENDER) [facility] Phosphorus, pl 4.3 2.3 - 4.5 mg/dL Blood 02/22/2024 8:42 PM ROUTING EQUIPMENT TENDER 02/22/2024 9:23 PM ROUTING EQUIPMENT TENDER Gretchen Mclain MD LAB BLOOD ORDERABLES Final R esult Performing Organization Address [facility] Co de Phone Number [facility] [place] [address] * Magnesium (02/22/2024 8:42 PM ROUTING EQUIPMENT TENDER) [facility] Magnesium 2.2 1.4 - 2.5 mg/dL Blood 02/22/2024 8:42 PM ROUTING EQUIPMENT TENDER 02/22/2024 9:23 PM ROUTING EQUIPMENT TENDER Gretchen Mclain MD LAB BLOOD ORDERABLES Final R esult Performing Organization Address [facility] Co de Phone Number [facility] [place] [address] * Vitamin B12 (02/22/2024 8:42 PM ROUTING EQUIPMENT TENDER) [facility] Vitamin B12 531 230 - 1,250 pg/mL Blood 02/22/2024 8:42 PM ROUTING EQUIPMENT TENDER 02/22/2024 9:23 PM ROUTING EQUIPMENT TENDER us Amena William MD LAB BLOOD ORDERABLES Fi nal Result [facility] One [facility] Department [place] [address] * (ABNORMAL) Comprehensive metabolic panel (02/22/2024 8:42 PM ROUTING EQUIPMENT TENDER) Pathologist [facility] Sodium 146(H) 135 - 145 mmol/L Potassium, pl 4.6 3.3 - 4.9 mmol/L [facility] Comment:Hemolyzed; Potassium value may be falsely elevated by as much as 0.3-0.5 mmol/L. Suggest redraw and reanalysis. Chloride 110 97 - 110 mmol/L [facility] CO2 27 22 - 32 mmol/L [facility] Anion gap 9 2 - 15 mmol/L [facility] BUN 47(H) 6 - 25 mg/dL [facility] Creatinine 1.98(H) 0.60 - 1.10 mg/dL [facility] Glucose 142 70 - 199 mg/dL [facility] Comment: Interpretive Data Fasting glucose >/= [...] 2022. Calcium 9.0 8.5 - 10.3 mg/dL [facility] Bilirubin, total 0.2 0.1 - 1.2 mg/dL [facility] Protein, pl 7.0 6.5 - 8.5 g/dL [facility] Albumin 3.5 3.5 - 5.0 g/dL [facility] Alk phos 97 40 - 130 Units/L [facility] ALT 15 7 - 45 Units/L [facility] AST 24 10 - 45 Units/L [facility] Comment:Hemolyzed; result ma y be falsely elevated Blood 02/22/2024 8:42 PM ROUTING EQUIPMENT TENDER 02/22/2024 9:23 PM ROUTING EQUIPMENT TENDER us Gretchen Mclain MD LAB BLOOD ORDERABLES Final R esult Performing Organization Address City/[facility]/ZIP Co de Phone Number [facility] [place] [address] * (ABNORMAL) eGFR (02/13/2024 9:23 AM ROUTING EQUIPMENT TENDER) eGFR 30(L) >=60 mL/min/1. 73 m2 Comment: [...] last reviewed 2020. Blood 02/13/2024 9:23 AM ROUTING EQUIPMENT TENDER 02/13/2024 10:32 AM ROUTING EQUIPMENT TENDER us Himanshu Cantu MD LAB BLOOD ORDERABLES Final Result [facility] ([place]) 1 [facility] Department [place] [address] * (ABNORMAL) eGFR (02/13/2024 9:23 AM ROUTING EQUIPMENT TENDER) eGFR 35(L) >=60 mL/min/1. 73 m2 Comment: [...] last reviewed 2020. Blood 02/13/2024 9:23 AM ROUTING EQUIPMENT TENDER 02/13/2024 10:32 AM ROUTING EQUIPMENT TENDER Aiyana Baldwin NP LAB BLOOD ORDERABLES Final Result [facility] ([place]) 1 [facility] Department [place] [address] * Differential, auto (02/13/2024 9:23 AM ROUTING EQUIPMENT TENDER) Pathologist [facility] Neutrophil abs 5.4 1.5 - 6.5 K/cumm [...] Neutrophil pct 71.2 % [facility] ([place]) Comment: Interpretive Data Percent cell count reference [...] revised on 2017. Basophil pct 0.5 % [facility] ([place]) Comment: Interpretive Data Percent cell count reference ranges are not reported, since discordance with absolute values may lead to misinterpretation of CBC data. Current Interpretive Data was last revised on 2017. Blood 02/13/2024 9:23 AM ROUTING EQUIPMENT TENDER 02/13/2024 10:32 AM ROUTING EQUIPMENT TENDER Aiyana Baldwin DIPLOMA PHARMACY TECHNICIAN LAB BLOOD ORDERABLES Final Result [facility] ([place]) 1 [facility] Department of Laboratories [place], [place] [id number] * Differential, auto (02/13/2024 9:23 AM ROUTING EQUIPMENT TENDER) Neutrophil abs 5.5 1.5 - 6.5 K/cumm [...] revised on 2017. Blood 02/13/2024 9:23 AM ROUTING EQUIPMENT TENDER 02/13/2024 10:32 AM ROUTING EQUIPMENT TENDER us Himanshu Cantu MD LAB BLOOD ORDERABLES Final Result [facility] ([place]) 1 [facility] [place] [address] * (ABNORMAL) CBC with auto differential (02/13/2024 9:23 AM ROUTING EQUIPMENT TENDER) [facility] WBC 7.5 3.8 - 9.9 K/cumm Hgb [...] RDW SD 54.0(H) 35.7 - 48.1 fL [facility] ([place]) NRBC abs 0.00 0.00 - 0.01 K/cumm [facility] ([place]) Blood 02/13/2024 9:23 AM ROUTING EQUIPMENT TENDER 02/13/2024 10:32 AM ROUTING EQUIPMENT TENDER Aiyana Baldwin NP LAB BLOOD ORDERABLES Final Result [facility] ([place]) 1 [facility] Department [place] [address] * (ABNORMAL) CBC with auto differential (02/13/2024 9:23 AM ROUTING EQUIPMENT TENDER) [facility] WBC 7.7 3.8 - 9.9 K/cumm Hgb 12.0 11.9 - 15.5 g/dL [facility] ([place]) Hct 39.8 35.6 - 45.5 % [facility] ([place]) Plt 253 150 - 400 K/cumm [facility] ([place]) MPV 9.9 9.1 - 12.3 fL [facility] ([place]) RBC 3.96 3.90 - 5.20 M/cumm [facility] ([place]) MCV 100.5(H) 81.3 - 96.4 fL [facility] ([place]) MCH 30.3 27.1 - 33.3 pg [facility] ([place]) MCHC 30.2(L) 32.3 - 35.7 g/dL [facility] ([place]) RDW CV 14.5 11.1 - 14.9 % [facility] ([place]) RDW SD 53.3(H) 35.7 - 48.1 fL [facility] ([place]) NRBC abs 0.00 0.00 - 0.01 K/cumm [facility] ([place]) Blood 02/13/2024 9:23 AM ROUTING EQUIPMENT TENDER 02/13/2024 10:32 AM ROUTING EQUIPMENT TENDER Himanshu Cantu MD LAB BLOOD ORDERABLES Final Result [facility] ([place]) 1 [facility] [place] [address] * (ABNORMAL) Vitamin D 25 hydroxy (02/13/2024 9:23 AM ROUTING EQUIPMENT TENDER) Vitamin D 25-OH 18(L) 30 - 80 ng/mL Blood 02/13/2024 9:23 AM ROUTING EQUIPMENT TENDER 02/13/2024 10:32 AM ROUTING EQUIPMENT TENDER Himanshu Cantu MD LAB BLOOD ORDERABLES Final Result [facility] ([place]) 1 [facility] [place] [address] * (ABNORMAL) Hemoglobin A1c (02/13/2024 9:23 AM ROUTING EQUIPMENT TENDER) Hgb A1C 7.6(H) 4.0 - 5.6 % Estimated Average Glucose 171 mg/dL [facility] ([place]) Comment: The ADA recommends reporting an estimated Average Glucose (eAG) with all Hemoglobin A1c results using the equation derived from a study of 507 normal and diabetic adults. Minority populations were underrepresented and children were not included. (Diabetes Care 31:9169-9517, 2008). The eAG is not equivalent to a fasting glucose. Blood 02/13/2024 9:23 AM ROUTING EQUIPMENT TENDER 02/13/2024 10:32 AM ROUTING EQUIPMENT TENDER us Himanshu Cantu MD LAB BLOOD ORDERABLES Final Result [facility] ([place]) 1 [facility] Department [place] [address] * Lipid panel (02/13/2024 9:23 AM ROUTING EQUIPMENT TENDER) Cholesterol 141 30 - 199 mg/dL Comment: [...] on 2017. HDL 48 >=40 mg/dL [facility] ([place]) Comment: Interpretive Data Ages < or [...] last revised on 2017. Chol/HDL ratio 3 [facility] ([place]) Blood 02/13/2024 9:23 AM ROUTING EQUIPMENT TENDER 02/13/2024 10:32 AM ROUTING EQUIPMENT TENDER us Himanshu Cantu MD LAB BLOOD ORDERABLES Final Result [facility] ([place]) 1 [facility] Department [place] [address] * (ABNORMAL) Comprehensive metabolic panel (02/13/2024 9:23 AM ROUTING EQUIPMENT TENDER) Sodium 145 135 - 145 mmol/L Potassium, [...] [facility] ([place]) Blood 02/13/2024 9:23 AM ROUTING EQUIPMENT TENDER 02/13/2024 10:32 AM ROUTING EQUIPMENT TENDER us Himanshu Cantu MD LAB BLOOD ORDERABLES Final Result [facility] ([place]) 1 [facility] Department [place] [address] * (ABNORMAL) Basic metabolic panel (02/13/2024 9:23 AM ROUTING EQUIPMENT TENDER) Sodium 141 135 - 145 mmol/L Potassium, [...] [facility] ([place]) Blood 02/13/2024 9:23 AM ROUTING EQUIPMENT TENDER 02/13/2024 10:32 AM ROUTING EQUIPMENT TENDER us Aiyana JarretAshkan Baldwin DIPLOMA PHARMACY TECHNICIAN LAB BLOOD ORDERABLES Final Result [facility] [place] 1 [facility] Department of Laboratories [place], [place] [id number] * LEFT HEART CATHETERIZATION WITH CORONARY ANGIOGRAPHY AND WITH AND WITHOUT LEFT VENTRICULOGRAM (02/06/2024 9:20 AM ROUTING EQUIPMENT TENDER) Anatomical Region Laterality Modality X-Ray Angiograph y Impressions 02/06/2024 10:26 AM ROUTING EQUIPMENT TENDER 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 Procedure: CORONARY ANGIOGRAM / PERCUTANEOUS CORONARY INTERVENTION Patient: Abigail Trivedi is a 63 y.o. female : 1960 MR number: [id number] Date of Service: 02/06/2024 Senior Office Assistant: Davi Carvajal MD Fellow: Carrol Brownlee MD [...] obtained. The patient was brought to the slabber and placed on the table Bilateral groins [...] lesions present. COMPLICATIONS: None DIAGNOSTIC Aiyana Baldwin NP CV CARDIAC CATH PROCEDURES Final Result * (ABNORMAL) POCT Activated clotting time, low range (02/06/2024 9:18 AM ROUTING EQUIPMENT TENDER) ACT 211(H) 123 - 168 sec POC Performer [id number] [facility] POC Device Number [id number] [facility] Blood 02/06/2024 9:18 AM ROUTING EQUIPMENT TENDER 02/06/2024 9:18 AM ROUTING EQUIPMENT TENDER Davi Carvajal MD LAB POCT ORDERABLES - DEVICE Final Result Performing Organization Address [facility] Co de Phone Number [facility] [place] [address] * POCT glucose (02/06/2024 7:40 AM ROUTING EQUIPMENT TENDER) Glucose, POC 145 70 - 199 mg/dL Blood 02/06/2024 7:40 AM ROUTING EQUIPMENT TENDER 02/06/2024 7:40 AM ROUTING EQUIPMENT TENDER Davi Carvajal MD LAB POCT ORDERABLES - DEVICE Final Result Performing Organization Address [facility] Phone Number [facility] [place] [address] * ECG 12 lead (02/06/2024 7:14 AM ROUTING EQUIPMENT TENDER) Ventricular Rate EKG/Min 66 BPM [facility] Atrial Rate 66 BPM [facility] [place]-Interval (MSEC) 188 ms [facility] QRS-Interval (MSEC) 148 ms [facility] QT-Interval (MSEC) 470 ms [facility] QTc 492 ms [facility] P [place] 60 degrees [facility] R [place] 17 degrees [facility] T [place] 83 degrees [facility] Diagnosis Normal sinus rhythm Left bundle branch block Abnormal ECG When compared with ECG of 23-APR-2019 07:15, No significant change was found Confirmed by KANDACE GREY M.D ([id number]) on 02/13/2024 8:51:44 AM [facility] 02/06/2024 7:14 AM ROUTING EQUIPMENT TENDER 02/13/2024 8:51 AM ROUTING EQUIPMENT TENDER Davi Carvajal MD ECG ORDERABLES Final Result Performing Organization Address [facility] Phone Number [facility] * (ABNORMAL) eGFR (02/06/2024 6:50 AM ROUTING EQUIPMENT TENDER) Pathologist [facility] eGFR 27(L) >=60 mL/min/1. 73 m2 Comment: [...] last reviewed 2020. Blood 02/06/2024 6:50 AM ROUTING EQUIPMENT TENDER 02/06/2024 8:22 AM ROUTING EQUIPMENT TENDER Davi Carvajal MD LAB BLOOD ORDERABLES Final R esult [facility] One [facility] Department [place] [address] * (ABNORMAL) Basic metabolic panel (02/06/2024 6:50 AM ROUTING EQUIPMENT TENDER) [facility] Sodium 148(H) 135 - 145 mmol/L Potassium, pl 4.1 3.3 - 4.9 mmol/L [facility] Chloride 106 97 - 110 mmol/L [facility] CO2 29 22 - 32 mmol/L [facility] Anion gap 13 2 - 15 mmol/L [facility] BUN 53(H) 6 - 25 mg/dL [facility] Creatinine 1.99(H) 0.60 - 1.10 mg/dL [facility] Glucose 153 70 - 199 mg/dL [facility] Comment: Interpretive Data Fasting glucose >/= [...] 2022. Calcium 9.2 8.5 - 10.3 mg/dL [facility] Blood 02/06/2024 6:50 AM ROUTING EQUIPMENT TENDER 02/06/2024 8:13 AM ROUTING EQUIPMENT TENDER Davi Carvajal MD LAB BLOOD ORDERABLES Final R esult [facility] One [facility] [place] [address] * (ABNORMAL) eGFR (02/01/2024 12:36 PM ROUTING EQUIPMENT TENDER) eGFR 25(L) >=60 mL/min/1. 73 m2 Comment: [...] reviewed 2020. Blood 02/01/2024 12:3 6 PM ROUTING EQUIPMENT TENDER 02/01/2024 1:38 PM ROUTING EQUIPMENT TENDER us Gretchen Mclain MD LAB BLOOD ORDERABLES Final R esult [facility] ([place]) 1 [facility] Department [place] [address] * Differential, auto (02/01/2024 12:36 PM ROUTING EQUIPMENT TENDER) Neutrophil abs 6.3 1.5 - 6.5 K/cumm Imm gran abs 0.0 0.0 - 0.1 K/cumm [facility] ([place]) Lymphocyte abs 1.5 0.8 - 3.3 K/cumm [facility] ([place]) Monocyte abs 0.5 0.2 - 0.8 K/cumm [facility] ([place]) Eosinophil abs 0.3 0.0 - 0.5 K/cumm [facility] ([place]) Basophil abs 0.1 0.0 - 0.1 K/cumm [facility] ([place]) Neutrophil pct 72.3 % [facility] ([place]) Comment: Interpretive [...] on 2017. Blood 02/01/2024 12:3 6 PM ROUTING EQUIPMENT TENDER 02/01/2024 1:38 PM ROUTING EQUIPMENT TENDER us Gretchen Mclain MD LAB BLOOD ORDERABLES Final R esult [facility] ([place]) 1 [facility] Department [place] [address] * (ABNORMAL) CBC with auto differential (02/01/2024 12:36 PM ROUTING EQUIPMENT TENDER) WBC 8.8 3.8 - 9.9 K/cumm Hgb [...] [facility] ([place]) Blood 02/01/2024 12:3 6 PM ROUTING EQUIPMENT TENDER 02/01/2024 1:38 PM ROUTING EQUIPMENT TENDER Gretchen Mclain MD LAB BLOOD ORDERABLES Final R esult [facility] ([place]) 1 [facility] [employer] [place] [address] * (ABNORMAL) Basic metabolic panel (02/01/2024 12:36 PM ROUTING EQUIPMENT TENDER) Sodium 142 135 - 145 mmol/L Potassium, pl 5.2(H) 3.3 - 4.9 mmol/L [facility] ([place]) Chloride 104 97 - 110 mmol/L [facility] ([place]) CO2 24 22 - 32 mmol/L [facility] ([place]) Anion gap 14 2 - 15 mmol/L [facility] ([place]) BUN 60(H) 6 - 25 mg/dL [facility] ([place]) Creatinine 2.18(H) 0.60 - 1.10 mg/dL [facility] ([place]) Glucose 143 70 - 199 mg/dL [facility] ([place]) [...] - 10.3 mg/dL [facility] ([place]) Blood 02/01/2024 12:3 6 PM ROUTING EQUIPMENT TENDER 02/01/2024 1:38 PM ROUTING EQUIPMENT TENDER us Gretchen Mclain MD LAB BLOOD ORDERABLES Final R esult [facility] ([place]) 1 [facility] Department [place] [address] * POC Influenza A/B, COVID-19 antigen (01/25/2024 4:17 PM ROUTING EQUIPMENT TENDER) Influenza A Ag, POC Negative Negative [facility] Influenza B Ag, POC Negative Negative [facility] COVID-19 Ag POC Presumptive Negative Presumptive Negative, Invalid [facility] Nasal 01/25/2024 4:17 PM ROUTING EQUIPMENT TENDER Loyda Wetzel [employer]LOMA PHARMACY TECHNICIAN POINT OF CARE TEST ORDERABL ES Final Result Performing Organization Address [facility]/ZIP Co de Phone Number [facility] [address] [place] [address] * (ABNORMAL) eGFR (01/17/2024 3:16 PM ROUTING EQUIPMENT TENDER) eGFR 29(L) >=60 mL/min/1. 73 m2 Comment: [...] last reviewed 2020. Blood 01/17/2024 3:16 PM ROUTING EQUIPMENT TENDER 01/17/2024 9:06 PM ROUTING EQUIPMENT TENDER Aiyana Baldwin DIPLOMA PHARMACY TECHNICIAN LAB BLOOD ORDERABLES Final Result [facility] [address] [address] Department [place] [address] * Differential, auto (01/17/2024 3:16 PM ROUTING EQUIPMENT TENDER) Neutrophil abs 5.7 1.5 - 6.5 K/cumm Imm gran abs 0.0 0.0 - 0.1 K/cumm [facility] Lymphocyte abs 1.7 0.8 - 3.3 K/cumm [facility] Monocyte abs 0.7 0.2 - 0.8 K/cumm [facility] Eosinophil abs 0.3 0.0 - 0.5 K/cumm [facility] Basophil abs 0.1 0.0 - 0.1 K/cumm [facility] Neutrophil pct 67.4 % [facility] Comment: Interpretive Data Percent cell count reference ranges are not reported, since discordance with absolute values may lead to misinterpretation of CBC data. Current Interpretive Data was last revised on 2017. Imm gran pct 0.4 % [facility] Comment: Interpretive Data Percent cell count reference ranges are not reported, since discordance with absolute values may lead to misinterpretation of CBC data. Current Interpretive Data was last revised on 2017. Lymphocyte pct 20.1 % [facility] Comment: Interpretive Data Percent cell count reference ranges are not reported, since discordance with absolute values may lead to misinterpretation of CBC data. Current Interpretive Data was last revised on 2017. Monocyte pct 7.9 % [facility] Comment: Interpretive Data Percent cell count reference ranges are not reported, since discordance with absolute values may lead to misinterpretation of CBC data. Current Interpretive Data was last revised on 2017. Eosinophil pct 3.5 % [facility] Comment: Interpretive Data Percent cell count reference ranges are not reported, since discordance with absolute values may lead to misinterpretation of CBC data. Current Interpretive Data was last revised on 2017. Basophil pct 0.7 % [facility] Comment: Interpretive Data Percent cell count reference ranges are not reported, since discordance with absolute values may lead to misinterpretation of CBC data. Current Interpretive Data was last revised on 2017. Blood 01/17/2024 3:16 PM ROUTING EQUIPMENT TENDER 01/17/2024 8:50 PM ROUTING EQUIPMENT TENDER Aiyana E. Denny DIPLOMA PHARMACY TECHNICIAN LAB BLOOD ORDERABLES Final Result Performing Organization Address [facility] de Phone Number [facility] [address] [address] [place] [place] [address] * (ABNORMAL) Pro B-type natriuretic peptide (01/17/2024 3:16 PM ROUTING EQUIPMENT TENDER) NT-proBNP 811(H) <=300 pg/mL Comment: Interpretive Comments: [...] Revised Date: 2017. Blood 01/17/2024 3:16 PM ROUTING EQUIPMENT TENDER 01/17/2024 8:50 PM ROUTING EQUIPMENT TENDER Aiyana Baldwin NP LAB BLOOD ORDERABLES Final Result Performing Organization Address [facility] de Phone Number [facility] [address] [address] [place] [address] * (ABNORMAL) CBC with auto differential (01/17/2024 3:16 PM ROUTING EQUIPMENT TENDER) Pathologist [facility] WBC 8.5 3.8 - 9.9 K/cumm Hgb 12.0 11.9 - 15.5 g/dL [facility] Hct 40.9 35.6 - 45.5 % [facility] Plt 319 150 - 400 K/cumm [facility] MPV 9.9 9.1 - 12.3 fL [facility] RBC 4.04 3.90 - 5.20 M/cumm [facility] MCV 101.2(H) 81.3 - 96.4 fL [facility] MCH 29.7 27.1 - 33.3 pg [facility] MCHC 29.3(L) 32.3 - 35.7 g/dL [facility] RDW CV 14.8 11.1 - 14.9 % [facility] RDW SD 55.4(H) 35.7 - 48.1 fL [facility] NRBC abs 0.00 0.00 - 0.01 K/cumm [facility] Blood 01/17/2024 3:16 PM ROUTING EQUIPMENT TENDER 01/17/2024 8:50 PM ROUTING EQUIPMENT TENDER Aiyana Baldwin DIPLOMA PHARMACY TECHNICIAN LAB BLOOD ORDERABLES Final Result [facility] [address] Department [place] [address] * (ABNORMAL) Basic metabolic panel (01/17/2024 3:16 PM ROUTING EQUIPMENT TENDER) Pathologist [facility] Sodium 144 135 - 145 mmol/L Potassium, pl 5.1(H) 3.3 - 4.9 mmol/L [facility] Chloride 103 97 - 110 mmol/L [facility] CO2 27 22 - 32 mmol/L [facility] Anion gap 14 2 - 15 mmol/L [facility] BUN 48(H) 6 - 25 mg/dL [facility] Creatinine 1.90(H) 0.60 - 1.10 mg/dL [facility] Glucose 119 70 - 199 mg/dL [facility] Comment: Interpretive Data Fasting glucose >/= 126 [...] 2022. Calcium 9.9 8.5 - 10.3 mg/dL [facility] Blood 01/17/2024 3:16 PM ROUTING EQUIPMENT TENDER 01/17/2024 8:50 PM ROUTING EQUIPMENT TENDER us Aiyana Baldwin NP LAB BLOOD ORDERABLES Final Result Performing Organization Address [facility] de Phone Number [address] [place] [address] * (ABNORMAL) Albumin Creatinine Ratio, Urine (05/10/2023 11:04 AM CDT) Albumin Ur 43.0 mg/L Comment: Interpretive Data No reference range established. Current interpretive data was last revised 2018. Testing performed by: [address] [address] Creatinine Ur 53.3 mg/dL [facility] ([place]) Comment: Interpretive Data No reference range established. Current interpretive data was last revised 2018. Testing performed by: [address] [address] Albumin Creatinine Ratio, Ur 81(H) 1 - 29 mg/g [facility] ([facility] Comment:Testing performed by : [address] [address] Urine 05/10/2023 11:0 4 AM CDT 05/10/2023 6:37 PM CDT us Himanshu Cantu MD LAB URINE ORDERABLES Final Result Performing Organization Address [facility] Co de Phone Number [facility] ([place] 1 [facility] Department [place] [address] * DIABETES EYE EXAM (09/15/2021) us Historical [...] white female with given history of screening. Faculty Member/Model: Kids Note (S/N [id number]) CLINICAL INFORMATION: Current height: 62 inches Maximum [...] John Feldman M.D. RB: CRISTY Report ID: [id number] Reading Location: [place] [address] Procedure Note John Feldman MD - 06/29/2020 EXAM DESCRIPTION: DEXA AXIAL SKELETON BONE DENSITY 1 OR MORE SITES REASON FOR STUDY: 60 year old postmenopausal white female with given history of screening. Faculty Member/Model: Timbre SL (S/N [id number]) CLINICAL INFORMATION: Current height: 62 inches Maximum [...] John Feldman M.D. RB: CRISTY Report ID: [id number] Reading Location: [id number] us Inga Woodard DIPLOMA PHARMACY TECHNICIAN IMG DXA PROCEDURES Final Result * [...] There has been no suspicious interval change. us Inga Woodard NP IMG MAMMO PROCEDURES Dana l Result * Pap Only (05/06/2020 2:54 PM CDT) CLINICAL INFORMATION: [facility] Comment:Information not prov ided LMP [facility] Comment:PM Previous Pap [facility] Comment:INFORMATION NOT PROV IDED Prev. Bx [facility] Comment:INFORMATION NOT PROV IDED SOURCE: [facility] Comment:Cervix, Endocervix Pap, specimen adequacy [facility] Comment: Satisfactory for evaluation. Endocervical/transformation zone component absent. HPV interp [facility] Comment:Negative for intraep ithelial lesion or malignancy. Volunteer Specialist [facility] Meera Means Comment: KMY, CT(ASCP) CT screening location: [place] [address] Administration J[place] [address] Comment [facility]car CastilloGisselleMarshall blum Miguelangel Comment: EXPLANATORY NOTE: The Pap is a [...] 2:54 PM CDT 05/07/2020 12:27 AM CDT us Inga Woodard DIPLOMA PHARMACY TECHNICIAN LAB CYTOLOGY ORDERABLES F inal Result [facility] [place] [address] [address] [place] Naqvi [id number] * Hepatitis panel, acute (12/06/2019 12:19 PM CDT) Hep A IgM Nonreactive Nonreactive [facility] Comment: Interpretive Data: If Hep A IgM Ab is reported as Equivocal, a new sample should be drawn in two weeks for testing. Current interpretive data was last revised on 19. Hep B core IgM Nonreactive Nonreactive [facility] Comment: Interpretive Data If HepB Core IgM Ab is reported as Equivocal, a new sample should be drawn in two weeks for testing. Current interpretive data was last revised on 19. Hep C Ab Nonreactive Nonreactive [facility] Comment:Antibodies to HCV no t detected. Does NOT exclude the possibility of recent exposure to HCV. HepBsAg Nonreactive Nonreactive [facility] Blood specimen (specimen) 12/06/2019 12:19 PM CDT 12/06/2019 6:48 PM CDT Suzanna Amaro MD LAB MICROBIOLOGY - GENERAL ORDER KHUSHBOO Final Result [facility] [place] [address] * COLONOSCOPY (03/03/2010) Colonoscopy Normal Historical Provider HEALTH MAINTENANCE Final Result from Last 3 Months or Most Recently Relevant to Health Maintenance Insurance MEDICARE SOLUTIONS [place] MED[employer]ARE SOLUTIONS IDPA Advance Directives For more information, please contact: [phone] Documents on File Type Date Recorded Patient Safety Companion Expl anation ADVANCE DIRECTIVE 02/28/2017 7:55 PM [...] 3:11 PM 01/14/2019 9:09 PM Care Teams Range Ecologist Relationship Specialty Start Date End Date Himanshu Cantu MD PCP - General 05/06/16 Gretchen Mclain MD Consulting Physician Cardiology 09/07/17 Tyson Porras MD [address] [place] [address] [address] MART[address]Z [address] [address] Surgeon Orthopedic Surgery 09/07/17 [place] [address] [address] [address] Nurse Practitioner Internal Medicine 09/07/17 [place] [address] [address] [address] Consulting Physician Nephrology 09/07/17 [place] [address] [address] [id number] Fellow Internal Medicine 05/17/22 Aline Guzman, RN [address] [place] [address] [address] [place] [address] Design Center Consultant 02/27/24
--- OUTSIDE RECORDS SUMMARY | 2024-04-01 18:45 | XMS_ITS | Referral Summary ---
Author Organization [facility] Address [facility] [place] [address] Care Team Providers Care Baked Goods Stock Clerk Name Role Phone Himanshu Cantu MD Primary Care Provider + [phone] Source Comments [facility] Affiliates and Associated Physician Practices is amultiple site organization consisting of ambulatory clinics and hospital sitesin [place], [place], [place] and [place]. This disclosure is being madepursuant to the Care Everywhere program and may not contain all information available regarding this patient. Last updated 17.[facility] Allergies Active Allergy Reactions Criticality Noted Date [...] Administration Dates Next Due INFLUENZA VACCINE 10/30/2010 Social History Tobacco Use Types Packs/Day Years [...] 10/20/2015 11:00 AM CDT Plan of Treatment Not on file Procedures Procedure Name Priority Date/Time Associated Diagnosis Comments MAMMOGRAPHY ORDER Routine 06/29/2011 from Last 3 Months or Most Recently Relevant to Health Maintenance Results * MAMMOGRAPHY ORDER (06/29/2011) Anatomical Region Laterality Modality Other Josesito Farfan Mccord DO MAMMO ORDERABLES from Last 3 Months or Most Recently Relevant to Health Maintenance Administered Medications Care Teams Baked Goods Stock Clerk Relationship Specialty Start Date End Date Himanshu Cantu MD PCP - General Family Medicine 10/20/15
--- OUTSIDE RECORDS SUMMARY | 2024-04-01 18:45 | XMS_ITS | Patient Health Record ---
Author Organization [facility] Address [address] [place] [address] [address] [place], [place] [id number] Care Team Providers Care Maritime Pilot Name Role Phone Brooke Cantu Primary Care Provider Yohannes Vee Unavailable [phone] Allergies No Known Allergies Reason For Referral No Information Medications Medication SIG (Take, Route, Frequency, Duration) Notes Start Date End Date Status Lexapro 10 MG 1 tablet Orally Once a day Active Allopurinol 100 MG 5 tabs Orally Once a day Active Entresto 49-51 MG 1 tablet Orally Twice a day Active Atorvastatin Calcium 80 MG 1 tablet Orally Once a day Active Veltassa 16.8 GM 1 packet dissolved in water. Take other medications at least 3 hours before or 3 hours after this medication Orally Once a day 12/11/2020 Active Aspirin Adult Low Strength 81 MG 1 tablet Orally Once a day Active Torsemide 20 MG 3 tablet Orally Once a day 80 mg one qd Active Eplerenone 25 MG 1 tablet Orally Once a day Active Lisinopril 5 MG 1 tablet Orally Once a day Not-Taking traMADol HCl 50 MG 1 tablet Orally every 8 hrs Not-Taking Isosorbide Mononitrate ER 30 MG 1 tablet Orally Once a day Active lispro( insulin) 45 units tid Active Isosorbide Dinitrate 30 MG 1 tablet Orally four times a day Not-Taking Clopidogrel Bisulfate 75 MG 1 tablet Orally Once a day Active Uloric 40 MG 1 tablet Orally Once a day Not-Taking Jardiance 10 MG TAKE 1 TABLET BY MOUTH EVERY DAY for 30 Active Carvedilol 12.5 MG 1 tablet Orally twice a day Active predniSONE 5 MG 1 tablet Orally Once a day for 30 day(s) Not-Taking Nitroglycerin 0.4 MG as directed Sublingual Once a day prn Active Lantus 100 UNIT/ML as directed Subcutaneous every day 36 units qd Active Furosemide 80 MG 1 tablet Orally Twice a day Not-Taking Social History Tobacco Use: Social History Observation Description Date Details (start date - stop date) Never Smoker NA - NA Smoking Question Answer Notes Are you a: never smoker Problems Problem Type SNOMED Code ICD Code Onset Dates Problem Status W/U Status Risk Notes Problem [id number] CKD (chronic kidney disease) stage 3, GFR 30-59 ml/min (N18.3) Active confirmed Problem Peripheral vascular disease (978628785) PVD (peripheral vascular disease) (I73.9) Active confirmed Problem Hyperosmolarity due to secondary diabetes mellitus (290456084344441) DM hyperosmolarity type II (E11.00) Active confirmed Problem 91252107 Essential (primary) hypertension (I10) Active confirmed Problem Cardiomyopathy (92750174) Cardiomyopathy, unspecified type (I42.9) Active confirmed Plan Of Treatment Pending Test Test Name Order Date Renal Panel (10) 03/19/2019 Renal Panel (10) 07/09/2019 Renal Panel (10) 10/15/2019 Renal Panel (10) 04/14/2020 Renal Panel (10) 10/13/2020 Renal Panel (10) 12/15/2020 Renal Panel (10) 04/16/2021 Hemoglobin A1C 03/19/2019 Magnesium 04/16/2021 Magnesium 12/15/2020 Magnesium 10/13/2020 Magnesium 04/14/2020 Magnesium 10/15/2019 Magnesium 07/09/2019 Magnesium 03/19/2019 Magnesium 06/05/2018 Magnesium 09/18/2018 Magnesium 09/09/2016 Magnesium 08/16/2017 Magnesium 01/12/2018 Renal Panel 06/05/2018 Renal Panel 09/09/2016 Renal Panel 01/12/2018 Renal Panel 08/16/2017 Renal Panel 09/18/2018 HEMOGLOBIN A1C 10/15/2019 arterial doppler lower extremities 01/12 HEMOGLOBIN A1C 06/05/2018 Future Test Test Name Order Date Magnesium 08/16/2021 Renal Panel 08/16/2021 HEMOGLOBIN A1C 08/16/2021 Insurance Providers Payer Name Payer Address Payer Phone Subscriber Number Group Number Insured Name Patient Relationship to Insured Coverage Start Date Coverage End Date [facility] Medicare [employer] PPO [address] [address] [place] [address] [id number] Abigail Monreal Self - patient is the insured [facility] Department of Public Aid [address] [address] [place] [address] [id number] Abigail Monreal Self - patient is the insured Medical (General) History Medical History History ICD Code DM has been for 20 yeasrs, no retinopath y HTN CAD: EF 20 to 30% previous s tent placed. last cardiac cath 03/2016 did not revela any new lesions CKD: only has one kidney baseline 1.99 OA GOUT DAMI Surgical History Surgery Date(Month/Year) tubal ligation
--- NOTE | 2024-04-01 21:15 | ECG_ITS ---
Test Date: 2024-04-01 21:21:32 Measurements Intervals [place] Rate: 88 P: 68 NE: 223 QRS: -21 QRSD: 159 T: 103 QT: 446 QTc: 542 Interpretive Statements SINUS RHYTHM WITH FIRST DEGREE AV BLOCK LEFT BUNDLE BRANCH BLOCK BASELINE ARTIFACT- II, III, AVR, AVL, AVF ABNORMAL ECG Compared to ECG 04/01/2024 17:26:43 Atrial fibrillation no longer present Electronically Signed On 04-02-2024 06:41:57 OLERICULTURIST by Kristofer Campa D.O.
[2024-04-01 22:09] LABS: Glucose Point of Care 116 mg/dl (65-105)
[2024-04-01 22:12] LABS: Troponin I 0.032 ng/mL (0.000-0.034)
[2024-04-01] MEDS: ACETAMINOPHEN 500 MG TABLET 1000 MG PO (22:30)
--- NOTE | 2024-04-01 23:30 | P.HP_ITS ---
H&P: HPI History of Present Illness Date/Time: 04/02/24 00:26 Chief Complaint: 1. Palpitations 2. Shortness of breath Narrative: Abigail Monreal is a 64yo F with a mhx signficant for CAD s/p PCI, CHFrEF, dyslipidemia, obesity, DAMI, Hypertension, DM2 She was advised to pursue an ED visit by her PCP to whose office she presented earlier today with complaints of palpitations and concerns of swollen feet. Her symptoms of palpitations occur at rest and on exertion; with no known modifying factors, it came to be associated with dyspnea on miminal exertion. She denies associated cough, fevers, hemoptysis, dizziness, nausea, vomiting, chest pain or LOC. She does not smoke/chew tobacco, drink alcohol or consume recreational/illicit drugs; her family Hx is not contributory to the PC Work-up findings: ECG: A-fib w/RVR, HR 117 Converted to SR with 1AVB post IV Metoprolol in the ED Chest CTA: No CT evidence of acute pulmonary embolus. No acute process detected in the chest. US Venous doppler: Patent bilateral lower extremity veins. No evidence of deep venous thrombosis WBC 8.8 Hb 10.8 PLT 233 Na 142 K4 Cl 104 CO2 27 BUN 46 Cr 1.5 GFR 33 Troponin 0.022 >> 0.032 BNP 2450 Influenza A/B, RSV, COVID-19: None detected Abigail Monreal will be admitted, evaluated and managed for new onset A-fib with hypoxia Review of Systems Review of Systems: All systems reviewed & are unremarkable except as noted in HPI and below PMFSH Past Medical History Medical History (Updated 04/01/24 @ 22:23 by Sarita Valverde PA-C) History of diabetes mellitus History of chronic kidney disease History of CHF (congestive heart failure) History of coronary artery disease Social History Social History (Updated 04/01/24 @ 17:31 by Sarita Valverde PA-C) Smoking status: Never smoker Meds Home Medications and Allergies Allergies Allergy/AdvReac Type Severity Reaction Status Date / Time Penicillins Allergy Severe Hives Verified 04/01/24 17:28 Vital Signs Vital Signs - 24 hr 04/01/24 17:01 04/01/24 17:09 04/01/24 17:10 Temperature 97.7 F Pulse Rate 126 H 126 H 117 H Respiratory Rate 24 H 21 H 22 H Blood Pressure 130/86 130/86 Pulse Oximetry 93 94 94 Oxygen Delivery Nasal Cannula Oxygen Flow Rate 4 04/01/24 17:15 04/01/24 17:16 04/01/24 17:30 Temperature Pulse Rate 125 H 129 H 127 H Respiratory Rate 27 H 24 H 21 H Blood Pressure 132/78 Pulse Oximetry 98 98 91 Oxygen Delivery Oxygen Flow Rate 04/01/24 17:31 04/01/24 17:45 04/01/24 17:46 Temperature Pulse Rate 128 H 122 H 113 H Respiratory Rate 32 H 24 H 24 H Blood Pressure 126/81 122/99 H Pulse Oximetry 98 96 97 Oxygen Delivery Oxygen Flow Rate 04/01/24 18:00 04/01/24 18:01 04/01/24 18:15 Temperature Pulse Rate 120 H 119 H 145 H Respiratory Rate 23 H 30 H 22 H Blood Pressure 124/90 Pulse Oximetry 97 98 Oxygen Delivery Oxygen Flow Rate 04/01/24 18:27 04/01/24 18:30 04/01/24 18:33 Temperature Pulse Rate 136 H 104 H 103 H Respiratory Rate 23 H 24 H Blood Pressure Pulse Oximetry 93 92 Oxygen Delivery Oxygen Flow Rate 04/01/24 18:34 04/01/24 18:38 04/01/24 18:41 Temperature Pulse Rate 111 H 103 H Respiratory Rate 55 H Blood Pressure Pulse Oximetry 91 94 Oxygen Delivery Nasal Cannula Oxygen Flow Rate 4 04/01/24 18:45 04/01/24 18:46 04/01/24 19:00 Temperature Pulse Rate 101 H 103 H 114 H Respiratory Rate 21 H 26 H 23 H Blood Pressure 134/82 Pulse Oximetry 99 94 98 Oxygen Delivery Oxygen Flow Rate 04/01/24 19:01 04/01/24 19:34 04/01/24 19:45 Temperature Pulse Rate 102 H Respiratory Rate 24 H Blood Pressure 151/66 H Pulse Oximetry 97 98 98 Oxygen Delivery Oxygen Flow Rate 04/01/24 20:00 04/01/24 20:01 04/01/24 20:15 Temperature Pulse Rate Respiratory Rate Blood Pressure 105/80 Pulse Oximetry 99 99 97 Oxygen Delivery Oxygen Flow Rate 04/01/24 20:30 04/01/24 20:31 04/01/24 21:00 Temperature Pulse Rate 83 Respiratory Rate 25 H 24 H 19 Blood Pressure 108/77 132/90 Pulse Oximetry 100 99 97 Oxygen Delivery Oxygen Flow Rate 04/01/24 21:01 04/01/24 21:15 04/01/24 21:30 Temperature Pulse Rate 83 91 81 Respiratory Rate 20 16 20 Blood Pressure Pulse Oximetry 98 98 99 Oxygen Delivery Oxygen Flow Rate 04/01/24 21:31 04/01/24 21:45 04/01/24 22:00 Temperature Pulse Rate 84 82 86 Respiratory Rate 21 H 22 H 15 Blood Pressure 128/105 H Pulse Oximetry 99 98 99 Oxygen Delivery Oxygen Flow Rate 04/01/24 22:01 04/01/24 22:15 04/01/24 22:30 Temperature Pulse Rate 78 82 89 Respiratory Rate 17 19 18 Blood Pressure 145/74 H Pulse Oximetry 99 99 Oxygen Delivery Oxygen Flow Rate 04/01/24 22:31 04/01/24 22:45 04/01/24 23:00 Temperature Pulse Rate 90 88 91 Respiratory Rate 17 18 19 Blood Pressure 148/85 H Pulse Oximetry 98 Oxygen Delivery Oxygen Flow Rate 04/01/24 23:01 Temperature Pulse Rate 90 Respiratory Rate 18 Blood Pressure 161/78 H Pulse Oximetry 97 Oxygen Delivery Oxygen Flow Rate Exam Const: General: comfortable HENMT: Ears: TM's normal bilaterally Eyes: General: appearance normal, both eyes and all related structures Pupils: Equal, round and reactive pupils present Neck: Neck: supple Resp: Effort & Inspection: normal respiratory effort Cardio: Rate: regular rate Rhythm: abnormal rhythm GI: Auscultation: normal bowel sounds Skin: General skin exam: normal color Neuro: General: gait normal Speech: normal speech Motor exam (neuro): 5/5 motor strength present throughout and Normal motor muscle tone present throughout Extrem: General: normal to inspection Psych: Mental Status: mental status grossly normal Affect: normal affect H&P: Results Labs Labs: Short CBC 04/01/24 Range/Units 17:32 WBC 8.8 (4.5-10.0) K/mm3 Hgb 10.8 L (12.0-15.0) g/dL Hct 35.3 L (37.0-47.0) % Plt Count 233 (150-375) k/mm3 BMP 04/01/24 17:32 Sodium 142 Potassium 4.0 Chloride 104 Carbon Dioxide 27 BUN 46 H Creatinine 1.55 H Glucose 62 L Calcium 9.6 Cardiac Enzymes 04/01/24 04/01/24 Range/Units 17:32 21:42 Troponin I 0.022 0.032 D (0.000-0.034) ng/mL Liver Function 04/01/24 Range/Units 17:32 Total Bilirubin 0.6 (0.2-1.3) mg/dL AST 19 (14-36) U/L ALT 13 (6-35) U/L Alkaline Phosphatase 95 (38-126) U/L Albumin 3.6 (3.5-5.1) g/dL Assessment and Plan Assessment and plan (1) Atrial fibrillation with RVR: Code(s): I48.91 - Unspecified atrial fibrillation Status: Acute (2) Acute hypoxic respiratory failure: Code(s): J96.01 - Acute respiratory failure with hypoxia Status: Acute Plan Acute and principal conditions. 1. Paroxysmal A-fib, new onset. CHADS-VASc 5 2. Acute hypoxic respiratory failure. Probably 2/2 [facility] Rx: A. Metoprolol Tartrate BID B. Heparin gtt C. Telemetry monitoring; ECHO D. Cardiology consult E. Supplemental oxygen with wean as tolerated Chronic and stable conditions 1. Obesity, BMI 54 2. IDDM2. 3. CKD 4. CHFrEF 5. CAD s/p PCI 6. DAMI Miscellaneous care. 1. Code status. Full 2. VTE prophylaxis. SCDs; Heparin gtt 3. Nutrition. Carb-controlled; heart healthy Hospitalist [facility] Advance Care Plan I have confirmed that the patient's Advanced Care Plan is present, code status is documented, or surrogate decision maker is listed in patient medical record.: Yes Medication Reconciliation I have utilized all available resources to obtain, update and review the patients current medications (includes all prescriptions, OTC, herbals, cannabis, and nutritional supplements).: Yes The patient is not eligible for med reconciliation; the patient is in a emergent medical situation where delaying treatment would jeopardize the patients health.: Yes
[2024-04-02] VITALS (71 sets, daily range): BP systolic 106–158; BP diastolic 45–95; PULSE 68–96; RESP 16–25; TEMP 36.8–37.2; O2SAT 91–100; BMI 53.1
--- NOTE | 2024-04-02 | ECHO_ITS ---
Patient Info Name: Abigail Monreal Age: 64 years : 1960 Gender: Female Ht: 62 in Wt: 296 lbs BSA: 2.51 m2 HR: 76 bpm BP: 149 / 69 mmHg Heart Rhythm: Sinus Rhythm Technical Quality: Poor Exam Date: 04/02/2024 4:05 PM Exam Location: Echo Lab Patient Status: Inpatient Admit Date: 04/02/2024 Staff Ordering Physician: Aashish Carrillo MD Pupil Personnel Worker: Erin Ferreira RDCS Attending Provider: Aashish Carrillo MD Referring Physician: Lorena BALDERAS; Exam Type: CA echo dop bubble study w con Study Info Indications - NSTEMI Complete two-dimentional, color flow and Doppler transthoracic echocardiogram is performed with agitated saline and with contrast to opacify the left ventricle and to improve the delineation of the left ventricle endocardial borders. Contrast/Agitated Saline Contrast/Ag. Saline: Agitated Saline Amount: 20.00 ml Existing IV Access: Yes Contrast/Ag. Saline: Definity Amount: 2.00 ml Existing IV Access: Yes Reason for Poor Study: patient body habitus Summary 1. Very difficult echocardiogram even with definity contrast image quality was quite poor. 2. Impression of mildly depressed left ventricular systolic function. 3. Inability to accurately quantify ejection fraction because of poor image quality. 4. No obvious valvular dysfunction. 5. Normal sinus rhythm, exam was ordered because of atrial fib. 6. No intracardiac shunt seen with agitated saline contrast, image quality however was very poor. Left Ventricle Left ventricular chamber dimension is mildly enlarged. Right Ventricle Right ventricular chamber dimension is not well visualized. Left Atria Left atrial chamber dimension is mildly enlarged. Right Atria Right atrial chamber dimension is not well visualized. Aortic Valve The aortic valve is not well visualized. Pulmonic Valve The pulmonic valve is not well visualized. Mitral Valve The mitral valve has normal leaflets. Tricuspid Valve The tricuspid valve leaflets are not well visualized. Pericardium/Pleural The pericardium appears normal. Aorta The aortic root size at the sinus of Valsalva is not well visualized. Left Ventricular Outflow Tract Name Value Normal LVOT 2D LVOT Diameter 1.9 cm LVOT Doppler LVOT Peak Velocity 110 cm/s LVOT Peak Gradient 4 mmHg LVOT Mean Gradient 3 mmHg LVOT VTI 25 cm LVOT VTI/AV VTI Ratio 0.7 LVOT Stroke Volume 68 ml LVOT CO 12.7 l/min LVOT CI 5.0 l/min/m2 Pulmonic Valve Name Value Normal RVOT Doppler RVOT Peak Gradient 5 mmHg PV Doppler PV Peak Velocity 127 cm/s PV Peak Gradient 6 mmHg Mitral Valve Name Value Normal MV Doppler MV Decel Liberty 370 cm/s2 MV PHT 36 ms MV Area (PHT) 6.0 cm2 4.0-5.0 MV Diastolic Function MV E Peak Velocity 46 cm/s MV A Peak Velocity 77 cm/s MV E/A 0.6 MV Decel Time 126 ms MV Annular TDI MV Septal e' Velocity 3.6 cm/s >=8.0 MV E/e' (Septal) 12.8 <=8.0 MV Lateral e' Velocity 7.5 cm/s >=10.0 MV E/e' (Lateral) 6.2 <=8.0 MV e' Average 5.58 MV E/e' (Average) 9.5 Tricuspid Valve Name Value Normal Estimated PAP/RSVP RA Pressure 10 mmHg <=5 TV Annular TDI TV Lateral Sultana s' Velocity 12.5 cm/s 9.5-18.7 Aorta Name Value Normal Ascending Aorta Ao Root Diameter (MM) 2.1 cm Ao Root Diam Index (MM) 0.8 cm/m2 Ao Sinotub [place]unction Diameter 2.6 cm 2.3-2.9 Aortic Valve Name Value Normal AV Doppler AV Peak Velocity 165 cm/s AV Peak Gradient 10 mmHg AV Mean Gradient 5 mmHg AV VTI 38 cm AV Area (Cont Eq VTI) 1.8 cm2 >=3.0 AV Area (Cont Eq John) 1.8 cm2 AV V1/V2 Ratio 0.66 AV Regurgitation 2D LVOT Area 2.7 cm2 Ventricles Name Value Normal LV Dimensions 2D/MM IVS Diastolic Thickness (2D) 1.2 cm 0.6-1.0 LVID Diastole (2D) 5.7 cm 3.8-5.2 LVIW Diastolic Thickness (2D) 2.0 cm 0.6-0.9 LVID Systole (2D) 4.1 cm 2.2-3.5 LVOT Diameter 1.9 cm LV Mass (2D Cubed) 423.20 g 67.00-162.00 LV Mass Index (2D Cubed) 168 g/m2 43-95 Relative Wall Thickness (2D) 0.72 LV Fractional Shortening/Ejection Fraction 2D/MM LV Fractional Shortening (2D) 32 % 27-45 LV EF (2D Teicholz) 60 % 54-74 LV Diastolic Volume (4C MOD) 164 ml LV EF (4C MOD) 29 % LV Diastolic Volume (2C MOD) 119 ml LV EF (2C MOD) 25 % LV Diastolic Volume (BP MOD) 152 ml 46-106 LV Diastolic Volume Index (BP MOD) 60 ml/m2 29-61 LV Systolic Volume (BP MOD) 111 ml 14-42 LV Systolic Volume Index (BP MOD) 44 ml/m2 8-24 LV EF (BP MOD) 27 % 54-74 LV Diastolic Length (4C) 9.3 cm LV Systolic Length (4C) 8.4 cm LV Stroke Volume (4C MOD) 48 ml Atria Name Value Normal LA Dimensions LA Dimension (MM) 3.3 cm 2.7-3.8 Report Signatures Amended by Alonso Barroso on 04/08/2024 06:58 Amended by Alonso Barroso on 04/08/2024 06:55
[2024-04-02] MEDS: METOPROLOL TARTRATE 12.5 MG TABLET PO ×3 (01:14→21:17)
[2024-04-02] MEDS: FUROSEMIDE INJ 40 MG/4 ML VIAL 20 MG IV PUSH ×3 (01:15→18:43)
[2024-04-02 06:04] LABS: Basophils Percent Auto 0.6 % (0.2-1.2); Eosinophils Absolute Auto 0.2 K/mm3 (0-0.3); Eosinophils Percent Auto 2.9 % (0-4.4); Hematocrit 32.7 % (37.0-47.0); Hemoglobin 9.8 g/dL (12.0-15.0); Immature Granulocyte Absolute 0.02 K/mm3 (0.00-0.031); Immature Granulocyte Percent A 0.3 % (0-0.5); Lymphocytes Absolute Auto 0.86 K/mm3 (0.9-3.2); Lymphocytes Percent Auto 13.9 % (18.3-44.2); Mean Corpuscular Hemoglobin 29.6 pg (26-34); Mean Corpuscular Volume 98.8 fl (80-100); Mean Platelet Volume 9.8 fl (7.4-10.4); Monocytes Absolute Auto 0.5 K/mm3 (0.1-0.6); Monocytes Percent Auto 7.4 % (2.6-8.5); Neutrophils Absolute Auto 4.6 K/mm3 (1.3-6.7); Neutrophils Percent Auto 74.9 % (45.5-73.1); Platelet Count Result 233 k/mm3 (150-375); Red Blood Count 3.31 M/mm3 (4.2-5.4); Red Cell Distribution Width 14.6 % (11.5-14.5); White Blood Count 6.2 K/mm3 (4.5-10.0)
[2024-04-02 06:13] LABS: Potassium 4.1 mmol/L (3.4-5.0)
[2024-04-02 06:16] LABS: Alanine Aminotransferase 10 U/L (6-35); Albumin Level 3.3 g/dL (3.5-5.1); Alkaline Phosphatase 86 U/L (38-126); Anion Gap 6 mmol/L (4-12); Aspartate Amino Transferase 20 U/L (14-36); Bilirubin,Total 0.6 mg/dL (0.2-1.3); Blood Urea Nitrogen 45 mg/dL (7-17); Calcium 9.2 mg/dL (8.4-10.2); Carbon Dioxide 30 mmol/L (22-30); Chloride 106 mmol/L (98-107); Estimated CRCL calculation 42 ml/min; Estimated Glomerular Filt Rate 32; Glucose 95 mg/dL (65-110); Sodium 142 mmol/L (137-145)
[2024-04-02 06:25] LABS: Prothrombin Time 13.7 Seconds (11.1-14.7)
[2024-04-02 06:26] LABS: Partial Thromboplastin Time 30.8 Seconds (22.3-36.8)
[2024-04-02] MEDS: HEPARIN SOD/D5W 100 UNITS/ML 25,000 UNITS/250 ML BAG 15 UNITS IV CONT (06:42)
--- NOTE | 2024-04-02 09:13 | P.PNIM_ITS ---
Progress Note: A&P Assessment and Plan (1) Atrial fibrillation with RVR: Code(s): I48.91 - Unspecified atrial fibrillation Status: Acute Assessment and Plan: New onset Cardiology consulted pending recommendations Heparin drip per protocol Echo pending Daily labs (2) Acute hypoxic respiratory failure: Code(s): J96.01 - Acute respiratory failure with hypoxia Status: Acute Assessment and Plan: CTA negative for PE Lasix x1 Metoprolol b.i.d. (3) CHF (congestive heart failure): Code(s): I50.9 - Heart failure, unspecified Status: Acute Assessment and Plan: IV Lasix b.i.d. Monitor kidney and respiratory function Continue cardiac medications (4) WILLIAN (acute kidney injury): Code(s): N17.9 - Acute kidney failure, unspecified Status: Acute Assessment and Plan: Creatinine unknown, no kidney disease listed Due to diuresis will hold off on IV fluids Daily BMP Avoid nephrotoxic medications (5) Hypothyroidism: Code(s): E03.9 - Hypothyroidism, unspecified Status: Acute Assessment and Plan: Continue home Synthroid (6) Diabetes: Code(s): E11.9 - Type 2 diabetes mellitus without complications Status: Acute Assessment and Plan: Diabetic diet SSI and Lantus Patient states that she recently started on Ozempic and her A1c is about 7 now Started on gabapentin for neuropathy Plan Miscellaneous care. 1. Code status. Full 2. VTE prophylaxis. SCDs; Heparin gtt 3. Nutrition. Carb-controlled; heart healthy Time Spent With Patient Time with patient: Greater than 35 minutes Subjective Date/time seen: 04/02/24 09:13 Interval history: 64yo F with a mhx signficant for CAD s/p PCI, CHFrEF, dyslipidemia, obesity, DAMI, Hypertension, DM2 found to have AFib with RVR and acute respiratory failure. Patient complains of chronic numbness and tingling in her right lower extremity, gabapentin started. Review of Systems Review of Systems: All systems reviewed & are unremarkable except as noted in HPI and below Exam Narrative: General: well appearing, appears stated age. Obese HEENT: normocephalic, atraumatic. Mucous membranes moist. EOMI, PERRLA, bilateral sclera anicteric, no conjunctival injection. Neck supple without JVD, lymphadenopathy, or bruit. Respiratory: Diminished to ascultation bilaterally. No rales/rhonic/wheezes. Cardiovascular: Regular rate and rhythm, normal S1-S2 upon ascultation. No murmurs, rubs, or clicks. PMI is nondisplaced, capillary refill less than 3 second. Abdomen: Soft, round, no pulsatile masses, nondistended and nontender. No rebound, no guarding. No CVA tenderness, no hepatosplenomegaly. Bowel sounds present to all four quadrants. No high pitch or tinkling sounds, resonant to percussion. Extremities: No cyanosis, clubbing, or edema present. Pulses are palpable 2/2. Active ROM to all four extremities. Neuro: Alert and orientated x 4. PERRLA. Cranial nerves 2-12 intact without focal deficit. Skin: Warm, dry, and intact, without rash, erythema, or lesion. Psych: pleasant, cooperative, normal speech, normal affect, no hallucinations, no dysarthia Objective Data Vital Signs Vital Signs: Vital Signs - 24 hr 04/01/24 17:01 04/01/24 17:09 04/01/24 17:10 Temperature 97.7 F Pulse Rate 126 H 126 H 117 H Respiratory Rate 24 H 21 H 22 H Blood Pressure 130/86 130/86 Pulse Oximetry 93 94 94 Oxygen Delivery Nasal Cannula Oxygen Flow Rate 4 04/01/24 17:15 04/01/24 17:16 04/01/24 17:30 Temperature Pulse Rate 125 H 129 H 127 H Respiratory Rate 27 H 24 H 21 H Blood Pressure 132/78 Pulse Oximetry 98 98 91 Oxygen Delivery Oxygen Flow Rate 04/01/24 17:31 04/01/24 17:45 04/01/24 17:46 Temperature Pulse Rate 128 H 122 H 113 H Respiratory Rate 32 H 24 H 24 H Blood Pressure 126/81 122/99 H Pulse Oximetry 98 96 97 Oxygen Delivery Oxygen Flow Rate 04/01/24 18:00 04/01/24 18:01 04/01/24 18:15 Temperature Pulse Rate 120 H 119 H 145 H Respiratory Rate 23 H 30 H 22 H Blood Pressure 124/90 Pulse Oximetry 97 98 Oxygen Delivery Oxygen Flow Rate 04/01/24 18:27 04/01/24 18:30 04/01/24 18:33 Temperature Pulse Rate 136 H 104 H 103 H Respiratory Rate 23 H 24 H Blood Pressure Pulse Oximetry 93 92 Oxygen Delivery Oxygen Flow Rate 04/01/24 18:34 04/01/24 18:38 04/01/24 18:41 Temperature Pulse Rate 111 H 103 H Respiratory Rate 55 H Blood Pressure Pulse Oximetry 91 94 Oxygen Delivery Nasal Cannula Oxygen Flow Rate 4 04/01/24 18:45 04/01/24 18:46 04/01/24 19:00 Temperature Pulse Rate 101 H 103 H 114 H Respiratory Rate 21 H 26 H 23 H Blood Pressure 134/82 Pulse Oximetry 99 94 98 Oxygen Delivery Oxygen Flow Rate 04/01/24 19:01 04/01/24 19:34 04/01/24 19:45 Temperature Pulse Rate 102 H Respiratory Rate 24 H Blood Pressure 151/66 H Pulse Oximetry 97 98 98 Oxygen Delivery Oxygen Flow Rate 04/01/24 20:00 04/01/24 20:01 04/01/24 20:15 Temperature Pulse Rate Respiratory Rate Blood Pressure 105/80 Pulse Oximetry 99 99 97 Oxygen Delivery Oxygen Flow Rate 04/01/24 20:30 04/01/24 20:31 04/01/24 21:00 Temperature Pulse Rate 83 Respiratory Rate 25 H 24 H 19 Blood Pressure 108/77 132/90 Pulse Oximetry 100 99 97 Oxygen Delivery Oxygen Flow Rate 04/01/24 21:01 04/01/24 21:15 04/01/24 21:30 Temperature Pulse Rate 83 91 81 Respiratory Rate 20 16 20 Blood Pressure Pulse Oximetry 98 98 99 Oxygen Delivery Oxygen Flow Rate 04/01/24 21:31 04/01/24 21:45 04/01/24 22:00 Temperature Pulse Rate 84 82 86 Respiratory Rate 21 H 22 H 15 Blood Pressure 128/105 H Pulse Oximetry 99 98 99 Oxygen Delivery Oxygen Flow Rate 04/01/24 22:01 04/01/24 22:15 04/01/24 22:30 Temperature Pulse Rate 78 82 89 Respiratory Rate 17 19 18 Blood Pressure 145/74 H Pulse Oximetry 99 99 Oxygen Delivery Oxygen Flow Rate 04/01/24 22:31 04/01/24 22:45 04/01/24 23:00 Temperature Pulse Rate 90 88 91 Respiratory Rate 17 18 19 Blood Pressure 148/85 H Pulse Oximetry 98 Oxygen Delivery Oxygen Flow Rate 04/01/24 23:01 04/01/24 23:02 04/01/24 23:15 Temperature Pulse Rate 90 91 87 Respiratory Rate 18 22 H 14 Blood Pressure 161/78 H Pulse Oximetry 97 99 Oxygen Delivery Oxygen Flow Rate 04/01/24 23:30 04/01/24 23:31 04/01/24 23:45 Temperature Pulse Rate 84 86 85 Respiratory Rate 17 14 19 Blood Pressure 137/60 Pulse Oximetry 98 99 Oxygen Delivery Oxygen Flow Rate 04/02/24 00:00 04/02/24 00:01 04/02/24 00:15 Temperature Pulse Rate 89 96 85 Respiratory Rate 23 H 24 H 18 Blood Pressure 154/65 H Pulse Oximetry 97 97 96 Oxygen Delivery Oxygen Flow Rate 04/02/24 00:30 04/02/24 00:31 04/02/24 00:45 Temperature Pulse Rate 81 87 82 Respiratory Rate 20 20 19 Blood Pressure 154/72 H Pulse Oximetry 96 93 94 Oxygen Delivery Oxygen Flow Rate 04/02/24 01:00 04/02/24 01:01 04/02/24 01:14 Temperature Pulse Rate 82 85 87 Respiratory Rate 20 19 Blood Pressure 157/61 H Pulse Oximetry 99 98 Oxygen Delivery Oxygen Flow Rate 04/02/24 01:16 04/02/24 01:30 04/02/24 01:31 Temperature Pulse Rate 85 84 84 Respiratory Rate 17 23 H 25 H Blood Pressure 158/62 H 154/76 H Pulse Oximetry 98 99 99 Oxygen Delivery Oxygen Flow Rate 04/02/24 01:45 04/02/24 02:00 04/02/24 02:01 Temperature Pulse Rate 83 75 78 Respiratory Rate 22 H 20 19 Blood Pressure 157/69 H Pulse Oximetry 99 Oxygen Delivery Oxygen Flow Rate 04/02/24 03:33 04/02/24 03:45 04/02/24 04:00 Temperature Pulse Rate 77 72 Respiratory Rate 19 16 17 Blood Pressure Pulse Oximetry 98 98 Oxygen Delivery Oxygen Flow Rate 04/02/24 04:08 04/02/24 04:15 04/02/24 04:30 Temperature Pulse Rate 81 82 73 Respiratory Rate 19 19 16 Blood Pressure 106/76 Pulse Oximetry Oxygen Delivery Oxygen Flow Rate 04/02/24 04:31 04/02/24 04:45 04/02/24 05:00 Temperature Pulse Rate 75 72 Respiratory Rate 20 20 Blood Pressure 130/91 H Pulse Oximetry 99 Oxygen Delivery Oxygen Flow Rate 04/02/24 05:01 04/02/24 05:15 04/02/24 05:31 Temperature Pulse Rate Respiratory Rate Blood Pressure 120/95 H 148/78 H Pulse Oximetry 99 100 Oxygen Delivery Oxygen Flow Rate 04/02/24 05:33 04/02/24 05:45 04/02/24 06:02 Temperature Pulse Rate Respiratory Rate Blood Pressure Pulse Oximetry 98 91 97 Oxygen Delivery Oxygen Flow Rate 04/02/24 06:15 04/02/24 06:30 04/02/24 06:45 Temperature Pulse Rate 72 81 77 Respiratory Rate 16 23 H 19 Blood Pressure Pulse Oximetry 100 97 Oxygen Delivery Oxygen Flow Rate 04/02/24 07:13 04/02/24 07:26 04/02/24 07:30 Temperature Pulse Rate 75 79 86 Respiratory Rate 21 H 24 H 19 Blood Pressure Pulse Oximetry 98 98 94 Oxygen Delivery Oxygen Flow Rate 04/02/24 07:45 Temperature Pulse Rate 79 Respiratory Rate 20 Blood Pressure Pulse Oximetry 97 Oxygen Delivery Oxygen Flow Rate Intake/Output Intake/Output: Intake & Output 03/30/24 03/31/24 04/01/24 04/02/24 23:59 23:59 23:59 23:59 Intake Total 0 Balance 0 Meds/Results Medications: Active Medications Generic Name Dose Route Start Last Admin Trade Name Freq PRN Reason Stop Dose Admin Albuterol/Ipratropium 3 ml 04/02/24 00:22 Ipratropium 0.5 Mg/Albuterol Sulfate 2.5 Mg Ampul.Neb 3 Ml INHALATION Q4HRT PRN shortness of breath/Wheezing Furosemide 20 mg 04/02/24 00:25 04/02/24 01:15 Furosemide Inj 40 Mg/4 Ml Vial IV PUSH 20 mg BID PILO Administration Heparin Sodium (Porcine) 6,500 units 04/02/24 05:40 Heparin Sodium 5,000 Units/Ml Vial IV PUSH PRN PRN aPTT less than 55 seconds Heparin Sodium (Porcine) 3,500 units 04/02/24 05:40 Heparin Sodium 5,000 Units/Ml Vial IV PUSH PRN PRN aPTT 55 - 70 seconds Heparin Sodium/Dextrose 25,000 units in 250 mls @ 15 mls/hr 04/02/24 05:40 04/02/24 06:42 Heparin Sodium/D5w 100 Units/Ml IV CONT 1,500 units/hr .[id number] PILO 15 mls/hr Administration Protocol 1,500 UNITS/HR Melatonin 5 mg 04/02/24 00:22 Melatonin 5 Mg Tablet PO HS PRN Insomnia Metoprolol Tartrate 12.5 mg 04/02/24 00:30 04/02/24 01:14 Metoprolol Tartrate 12.5 Mg Tablet PO 12.5 mg Q12HR PILO Administration Perflutren Lipid Microsphere 0 ml 04/02/24 05:54 Perflutren Lipid Microspheres 1.5 Ml Vial Diluted To 10 Ml Total Volume IV PUSH 04/05/24 05:54 ONCE PRN adequate visualization Protocol Prochlorperazine Edisylate 10 mg 04/02/24 00:22 Prochlorperazine Edisylate 10 Mg/2 Ml Vial IV PUSH Q6H PRN Nausea And Vomiting Radiology Results: ITS Impressions Chest CTA 04/01/24 19:46 IMPRESSION: No CT evidence of acute pulmonary embolus. No acute process detected in the chest. Venous Doppler Study 04/01/24 19:59 IMPRESSION: Patent bilateral lower extremity veins. No evidence of deep venous thrombosis. Labs Labs: Laboratory Results - last 24 hr 04/01/24 04/01/24 04/01/24 17:32 18:20 21:42 WBC 8.8 RBC 3.58 L Hgb 10.8 L Hct 35.3 L MCV 98.6 MCH 30.2 MCHC 30.6 L RDW 14.5 Plt Count 233 MPV 9.6 Immature Gran % (Auto) 0.5 Neut % (Auto) 87.1 H Lymph % (Auto) 5.6 L Menard % (Auto) 5.3 Eos % (Auto) 1.0 Baso % (Auto) 0.5 Lymph # (Auto) 0.49 L [place]ard # (Auto) 0.5 Eos # (Auto) 0.1 Baso # (Auto) 0.0 Abs Immat Gran (auto) 0.04 H Absolute Neuts (auto) 7.7 H Absolute Nucleated RBC 0.000 Nucleated RBC % 0.0 PT 13.6 INR 1.0 APTT 30.2 Sodium 142 Potassium 4.0 Chloride 104 Carbon Dioxide 27 Anion Gap 11 BUN 46 H Creatinine 1.55 H Estim Creat Clear Calc 43 Estimated GFR 33 L Glucose 62 L POC Capillary Glucose 52 L* Calcium 9.6 Total Bilirubin 0.6 AST 19 ALT 13 Alkaline Phosphatase 95 Troponin I 0.022 0.032 D NT-Pro-B Natriuret Pep 2450 H Total Protein 7.0 Albumin 3.6 Influenza A (RT-PCR) Negative Influenza B (RT-PCR) Negative RSV (RT-PCR) Negative SARS-CoV-2 RNA (RT-PCR) Negative 04/01/24 04/02/24 04/02/24 22:06 05:46 06:09 WBC 6.2 RBC 3.31 L Hgb 9.8 L Hct 32.7 L MCV 98.8 MCH 29.6 MCHC 30.0 L RDW 14.6 H Plt Count 233 MPV 9.8 Immature Gran % (Auto) 0.3 Neut % (Auto) 74.9 H Lymph % (Auto) 13.9 L [place]ard % (Auto) 7.4 Eos % (Auto) 2.9 Baso % (Auto) 0.6 Lymph # (Auto) 0.86 L [place]ard # (Auto) 0.5 Eos # (Auto) 0.2 Baso # (Auto) 0.0 Abs Immat Gran (auto) 0.02 Absolute Neuts (auto) 4.6 Absolute Nucleated RBC 0.000 Nucleated RBC % 0.0 PT 13.7 INR 1.0 APTT 30.8 Sodium 142 Potassium 4.1 Chloride 106 Carbon Dioxide 30 Anion Gap 6 BUN 45 H Creatinine 1.59 H Estim Creat Clear Calc 42 Estimated GFR 32 L Glucose 95 POC Capillary Glucose 116 H Calcium 9.2 Total Bilirubin 0.6 AST 20 ALT 10 Alkaline Phosphatase 86 Troponin I NT-Pro-B Natriuret Pep Total Protein 7.0 Albumin 3.3 L Influenza A (RT-PCR) Influenza B (RT-PCR) RSV (RT-PCR) SARS-CoV-2 RNA (RT-PCR) Quality VTE Prophylaxis VTE prophylaxis: mechanical ordered and pharmacologic ordered Hospitalist MIPS Advance Care Plan I have confirmed that the patient's Advanced Care Plan is present, code status is documented, or surrogate decision maker is listed in patient medical record.: Yes Medication Reconciliation I have utilized all available resources to obtain, update and review the patients current medications (includes all prescriptions, OTC, herbals, cannabis, and nutritional supplements).: Yes
[2024-04-02 09:30] LABS: Glucose Point of Care 100 mg/dl (65-105)
[2024-04-02 13:00] LABS: Glucose Point of Care 157 mg/dl (65-105)
[2024-04-02 13:06] LABS: Partial Thromboplastin Time 57.6 Seconds (22.3-36.8)
[2024-04-02] MEDS: HEPARIN SODIUM 5,000 UNITS/ML VIAL 3500 UNITS IV PUSH (13:15)
--- NOTE | 2024-04-02 14:32 | PC.NURSE ---
Patient arrived to room. Telemetry apllied. Patient alert and oriented x4.
[2024-04-02 15:21] LABS: Glucose Point of Care 151 mg/dl (65-105)
[2024-04-02] MEDS: PERFLUTREN LIPID MICROSPHERES 1.5 ML VIAL DILUTED TO 10 ML TOTAL VOLUME IV PUSH (16:50)
--- NOTE | 2024-04-02 17:20 | IVDEFINITY ---
Prior to administration of IV Definity the patient was educated on the risks and benefits of the imaging enhancing agent including potential adverse side effects. The patient verbalized understanding. Allergies were verified. No exclusion criteria were identified and at least one of the following inclusion criteria were met: 1) physician request, 2) patient technically difficult to image (per the [place] [employer] guidelines of two or more segments not discernable within the apical view), or 3) questionable left ventricular function. ?
[2024-04-02] MEDS: busPIRone HCL 5 MG TABLET PO (18:43)
[2024-04-02] MEDS: GABAPENTIN 300 MG CAPSULE PO (18:43)
[2024-04-02 19:44] LABS: Basophils Percent Auto 0.4 % (0.2-1.2); Eosinophils Absolute Auto 0.2 K/mm3 (0-0.3); Eosinophils Percent Auto 2.5 % (0-4.4); Hematocrit 39.2 % (37.0-47.0); Hemoglobin 11.8 g/dL (12.0-15.0); Immature Granulocyte Absolute 0.04 K/mm3 (0.00-0.031); Immature Granulocyte Percent A 0.4 % (0-0.5); Lymphocytes Absolute Auto 0.73 K/mm3 (0.9-3.2); Lymphocytes Percent Auto 8.1 % (18.3-44.2); Mean Corpuscular HGB Conc 30.1 g/dl (32-36); Mean Corpuscular Hemoglobin 30.3 pg (26-34); Mean Corpuscular Volume 100.5 fl (80-100); Mean Platelet Volume 9.7 fl (7.4-10.4); Monocytes Absolute Auto 0.5 K/mm3 (0.1-0.6); Monocytes Percent Auto 5.2 % (2.6-8.5); Neutrophils Absolute Auto 7.5 K/mm3 (1.3-6.7); Neutrophils Percent Auto 83.4 % (45.5-73.1); Platelet Count Result 247 k/mm3 (150-375); Red Cell Distribution Width 14.6 % (11.5-14.5)
[2024-04-02 20:10] LABS: Partial Thromboplastin Time 105.3 Seconds (22.3-36.8)
[2024-04-02 20:11] LABS: Glucose Point of Care 130 mg/dl (65-105)
[2024-04-02] MEDS: SACUBITRIL/VALSARTAN 97-103 MG TABLET 1 TAB PO (21:17)
[2024-04-03] VITALS (18 sets, daily range): BP systolic 95–140; BP diastolic 45–63; PULSE 70–87; RESP 20–23; TEMP 36.3–36.8; O2SAT 93–99
[2024-04-03] MEDS: HEPARIN SOD/D5W 100 UNITS/ML 25,000 UNITS/250 ML BAG 17 UNITS IV CONT (01:34)
[2024-04-03 02:39] LABS: Basophils Percent Auto 0.4 % (0.2-1.2); Eosinophils Absolute Auto 0.3 K/mm3 (0-0.3); Eosinophils Percent Auto 2.9 % (0-4.4); Hematocrit 35.6 % (37.0-47.0); Immature Granulocyte Absolute 0.03 K/mm3 (0.00-0.031); Immature Granulocyte Percent A 0.3 % (0-0.5); Lymphocytes Absolute Auto 0.88 K/mm3 (0.9-3.2); Lymphocytes Percent Auto 9.8 % (18.3-44.2); Mean Corpuscular HGB Conc 30.9 g/dl (32-36); Mean Corpuscular Hemoglobin 30.6 pg (26-34); Mean Corpuscular Volume 99.2 fl (80-100); Mean Platelet Volume 9.9 fl (7.4-10.4); Monocytes Absolute Auto 0.5 K/mm3 (0.1-0.6); Monocytes Percent Auto 5.1 % (2.6-8.5); Neutrophils Absolute Auto 7.3 K/mm3 (1.3-6.7); Neutrophils Percent Auto 81.5 % (45.5-73.1); Platelet Count Result 258 k/mm3 (150-375); Red Blood Count 3.59 M/mm3 (4.2-5.4); Red Cell Distribution Width 14.6 % (11.5-14.5)
[2024-04-03] MEDS: HYDROcodone/acetaminophen (*CRX) 7.5-325 MG TABLET 1 TAB PO (02:47)
[2024-04-03 02:50] LABS: Alanine Aminotransferase 13 U/L (6-35); Albumin Level 3.7 g/dL (3.5-5.1); Alkaline Phosphatase 105 U/L (38-126); Anion Gap 10 mmol/L (4-12); Aspartate Amino Transferase 19 U/L (14-36); Bilirubin,Total 0.5 mg/dL (0.2-1.3); Blood Urea Nitrogen 46 mg/dL (7-17); Calcium 9.7 mg/dL (8.4-10.2); Carbon Dioxide 28 mmol/L (22-30); Chloride 105 mmol/L (98-107); Estimated CRCL calculation 36 ml/min; Estimated Glomerular Filt Rate 27; Glucose 118 mg/dL (65-110); Potassium 4.2 mmol/L (3.4-5.0); Sodium 143 mmol/L (137-145)
[2024-04-03] MEDS: HEPARIN SODIUM 5,000 UNITS/ML VIAL 6500 UNITS IV PUSH (03:12)
[2024-04-03] MEDS: LEVOTHYROXINE SODIUM 100 MCG TABLET PO (06:00)
[2024-04-03 08:07] LABS: Glucose Point of Care 117 mg/dl (65-105)
--- NOTE | 2024-04-03 08:37 | P.PNIM_ITS ---
Progress Note: A&P Assessment and Plan (1) Atrial fibrillation with RVR: Code(s): I48.91 - Unspecified atrial fibrillation Status: Acute Assessment and Plan: New onset - corrected and stable - NS in 70/80's at this time. Cardiology consulted pending recommendations Heparin drip per protocol until Cardiology d/c's Echo noted difficulty reading due to image quality. trend labs - check mag and K daily (2) Acute hypoxic respiratory failure: Code(s): J96.01 - Acute respiratory failure with hypoxia Status: Acute Assessment and Plan: CTA negative for PE Lasix x1 given to offset overload. Oxygen as needed to maintain above 90% --> currently on O2 at 4 liters per nasal canula Hx of DAMI - uses CPAP at HS, does not tolerate this hospitals, (3) CHF (congestive heart failure): Code(s): I50.9 - Heart failure, unspecified Status: Acute Assessment and Plan: IV Lasix b.i.d. - check BNP Cardiology consulted ECHO - difficult to read due to image quality Monitor kidney and respiratory function Continue cardiac medications (4) WILLIAN (acute kidney injury): Code(s): N17.9 - Acute kidney failure, unspecified Status: Acute Assessment and Plan: Creatinine unknown, no kidney disease listed Due to diuresis will hold off on IV fluids Daily CMP - trend Avoid nephrotoxic medications (5) Hypothyroidism: Code(s): E03.9 - Hypothyroidism, unspecified Status: Acute Assessment and Plan: Continue home Synthroid (6) Diabetes: Code(s): E11.9 - Type 2 diabetes mellitus without complications Status: Acute Assessment and Plan: Diabetic diet SSI and Lantus Patient states that she recently started on Ozempic and her A1c is about 7 now Started on gabapentin for neuropathy Plan Miscellaneous care. 1. Code status. Full 2. VTE prophylaxis. SCDs; Heparin gtt 3. Nutrition. Carb-controlled; heart healthy Time Spent With Patient Time with patient: Greater than 35 minutes (40 minutes ) Subjective Date/time seen: 04/03/24 08:37 Interval history: 64yo F with a mhx signficant for CAD s/p PCI, CHFrEF, dyslipidemia, obesity, DAMI, Hypertension, DM2 found to have AFib with RVR and acute respiratory failure. Patient complains of chronic numbness and tingling in her right lower extremity, gabapentin started 04/02. Today patient denies any chest painor distress. States that she did not sleep well. Did not tolerate our CPAP. Is currently on O2 at 4 liters. Will attempt to wean back to Room air. Review of Systems Review of Systems: All systems reviewed & are unremarkable except as noted in HPI and below Exam Narrative: General: well appearing, appears stated age. Obese HEENT: normocephalic, atraumatic. Mucous membranes moist. EOMI, PERRLA, bilateral sclera anicteric, no conjunctival injection. Neck supple without JVD, lymphadenopathy, or bruit. Respiratory: Diminished to ascultation bilaterally. No rales/rhonic/wheezes. Cardiovascular: Regular rate and rhythm, normal S1-S2 upon ascultation. No murmurs, rubs, or clicks. PMI is nondisplaced, capillary refill less than 3 second. Abdomen: Soft, round, no pulsatile masses, nondistended and nontender. No rebound, no guarding. No CVA tenderness, no hepatosplenomegaly. Bowel sounds present to all four quadrants. No high pitch or tinkling sounds, resonant to percussion. Extremities: No cyanosis, clubbing, or edema present. Pulses are palpable 2/2. Active ROM to all four extremities. Neuro: Alert and orientated x 4. PERRLA. Cranial nerves 2-12 intact without focal deficit. Skin: Warm, dry, and intact, without rash, erythema, or lesion. Psych: pleasant, cooperative, normal speech, normal affect, no hallucinations, no dysarthia Const: General: comfortable HENMT: Ears: TM's normal bilaterally Eyes: General: appearance normal, both eyes and all related structures Pupils: Equal, round and reactive pupils present Neck: Neck: supple Resp: Effort & Inspection: normal respiratory effort Cardio: Rate: regular rate Rhythm: abnormal rhythm GI: Auscultation: normal bowel sounds Skin: General skin exam: normal color Neuro: General: gait normal Cranial nerves: Yes Equal, round and reactive pupils present Speech: normal speech Motor exam (neuro): 5/5 motor strength present throughout and Normal motor muscle tone present throughout Extrem: General: normal to inspection Psych: Mental Status: mental status grossly normal Affect: normal affect Objective Data Vital Signs Vital Signs: Vital Signs - 24 hr 04/02/24 08:45 04/02/24 09:00 04/02/24 09:01 Temperature Pulse Rate 86 82 80 Respiratory Rate 23 H 18 18 Blood Pressure 120/94 H Pulse Oximetry Oxygen Delivery Oxygen Flow Rate 04/02/24 09:15 04/02/24 09:30 04/02/24 09:31 Temperature Pulse Rate 86 88 87 Respiratory Rate 22 H 20 17 Blood Pressure 121/78 Pulse Oximetry Oxygen Delivery Oxygen Flow Rate 04/02/24 09:45 04/02/24 09:54 04/02/24 10:00 Temperature Pulse Rate 86 85 84 Respiratory Rate 19 20 Blood Pressure Pulse Oximetry 97 Oxygen Delivery Oxygen Flow Rate 04/02/24 10:01 04/02/24 10:15 04/02/24 10:30 Temperature Pulse Rate 85 83 81 Respiratory Rate 18 21 H 20 Blood Pressure 155/80 H Pulse Oximetry 94 95 Oxygen Delivery Oxygen Flow Rate 04/02/24 10:31 04/02/24 10:45 04/02/24 11:00 Temperature Pulse Rate 83 88 87 Respiratory Rate 21 H 16 17 Blood Pressure 146/71 H Pulse Oximetry 99 100 Oxygen Delivery Oxygen Flow Rate 04/02/24 11:01 04/02/24 11:15 04/02/24 13:14 Temperature Pulse Rate 85 76 Respiratory Rate 22 H 22 H 20 Blood Pressure 153/67 H 112/92 H Pulse Oximetry 99 95 97 Oxygen Delivery Oxygen Flow Rate 04/02/24 13:23 04/02/24 14:16 04/02/24 15:31 Temperature 98.3 F 98.4 F Pulse Rate 77 76 75 Respiratory Rate 22 H 22 H 22 H Blood Pressure 112/92 H 149/69 H 152/72 H Pulse Oximetry 97 99 96 Oxygen Delivery Oxygen Flow Rate 04/02/24 16:00 04/02/24 18:00 04/02/24 19:52 Temperature 98.9 F Pulse Rate 86 90 84 Respiratory Rate 20 Blood Pressure 154/83 H Pulse Oximetry 94 Oxygen Delivery Oxygen Flow Rate 04/02/24 20:00 04/02/24 20:00 04/02/24 21:17 Temperature Pulse Rate 81 90 Respiratory Rate Blood Pressure Pulse Oximetry 94 Oxygen Delivery Nasal Cannula Oxygen Flow Rate 2 04/02/24 22:00 04/02/24 23:45 04/03/24 00:00 Temperature 98.3 F Pulse Rate 89 88 Respiratory Rate 20 Blood Pressure 127/45 L Pulse Oximetry 97 95 Oxygen Delivery Nasal Cannula Oxygen Flow Rate 2 04/03/24 00:00 04/03/24 02:00 04/03/24 03:46 Temperature Pulse Rate 82 78 Respiratory Rate Blood Pressure Pulse Oximetry 99 Oxygen Delivery Nasal Cannula Oxygen Flow Rate 2 04/03/24 04:00 04/03/24 04:00 04/03/24 04:00 Temperature 97.8 F Pulse Rate 78 73 Respiratory Rate 20 Blood Pressure 122/63 Pulse Oximetry 99 96 Oxygen Delivery Nasal Cannula Oxygen Flow Rate 2 04/03/24 06:00 04/03/24 08:00 Temperature 97.4 F L Pulse Rate 79 75 Respiratory Rate 20 Blood Pressure 140/60 Pulse Oximetry 96 Oxygen Delivery Oxygen Flow Rate Intake/Output Intake/Output: Intake & Output 03/31/24 04/01/24 04/02/24 04/03/24 23:59 23:59 23:59 23:59 Intake Total 250.0 727.8 Output Total 1 1 Balance 249.0 726.8 Meds/Results Medications: Active Medications Generic Name Dose Route Start Last Admin Trade Name Freq PRN Reason Stop Dose Admin Hydrocodone Bitart/Acetaminophen 1 tab 04/03/24 02:27 04/03/24 02:47 Hydrocodone/Acetaminophen (*Crx) 7.5-325 Mg Tablet PO 1 tab Q6H PRN Administration Pain Rated 7-10 Albuterol/Ipratropium 3 ml 04/02/24 00:22 Ipratropium 0.5 Mg/Albuterol Sulfate 2.5 Mg Ampul.Neb 3 Ml INHALATION Q4HRT PRN shortness of breath/Wheezing Allopurinol 300 mg 04/03/24 09:00 Allopurinol 100 Mg Tablet PO QAM [facility] Allopurinol 200 mg 04/03/24 18:00 Allopurinol 100 Mg Tablet PO QPM [facility] Atorvastatin Calcium 80 mg 04/03/24 09:00 Atorvastatin 40 Mg Tablet PO DAILY [facility] Buspirone HCl 5 mg 04/02/24 17:00 04/02/24 18:43 Buspirone Hcl 5 Mg Tablet PO 5 mg BID P[facility]O Administration Ezetimibe 10 mg 04/03/24 09:00 Ezetimibe 10 Mg Tablet PO DAILY [facility] Empagliflozin 10 mg 04/03/24 09:00 Empagliflozin 10 Mg Tablet PO DAILY [facility] Escitalopram Oxalate 20 mg 04/03/24 09:00 Escitalopram Oxalate 10 Mg Tablet PO DAILY [facility] Furosemide 20 mg 04/02/24 00:25 04/02/24 18:43 Furosemide Inj 40 Mg/4 Ml Vial IV PUSH 20 mg BID PILO Administration Gabapentin 300 mg 04/02/24 13:00 04/02/24 19:09 Gabapentin 300 Mg Capsule PO Not Given TID [facility] Heparin Sodium (Porcine) 6,500 units 04/02/24 05:40 04/03/24 03:12 Heparin Sodium 5,000 Units/Ml Vial IV PUSH 6,500 units PRN PRN Administration aPTT less than 55 seconds Heparin Sodium (Porcine) 3,500 units 04/02/24 05:40 04/02/24 13:15 Heparin Sodium 5,000 Units/Ml Vial IV PUSH 3,500 units PRN PRN Administration aPTT 55 - 70 seconds Heparin Sodium/Dextrose 25,000 units in 250 mls @ 20 mls/hr 04/02/24 05:40 04/03/24 03:12 Heparin Sodium/D5w 100 Units/Ml IV CONT 2,000 units/hr .[id number] PILO 20 mls/hr Titration Protocol 2,000 UNITS/HR Isosorbide Mononitrate 120 mg 04/03/24 09:00 Isosorbide Mononitrate 60 Mg Tab.Er.24h PO DAILY [facility] Levothyroxine Sodium 100 mcg 04/03/24 06:30 04/03/24 06:00 Levothyroxine Sodium 100 Mcg Tablet PO 100 mcg DAILY@0630 PILO Administration Melatonin 5 mg 04/02/24 00:22 Melatonin 5 Mg Tablet PO HS PRN Insomnia Metoprolol Tartrate 12.5 mg 04/02/24 00:30 04/02/24 21:17 Metoprolol Tartrate 12.5 Mg Tablet PO 12.5 mg Q12HR PILO Administration Prochlorperazine Edisylate 10 mg 04/02/24 00:22 Prochlorperazine Edisylate 10 Mg/2 Ml Vial IV PUSH Q6H PRN Nausea And Vomiting Sacubitril/Valsartan 1 tab 04/02/24 21:00 04/02/24 21:17 Sacubitril/Valsartan 97-103 Mg Tablet PO 1 tab Q12HR PILO Administration Radiology Results: ITS Impressions Chest CTA 04/01/24 19:46 IMPRESSION: No CT evidence of acute pulmonary embolus. No acute process detected in the chest. Venous Doppler Study 04/01/24 19:59 IMPRESSION: Patent bilateral lower extremity veins. No evidence of deep venous thrombosis. Labs Labs: Laboratory Results - last 24 hr 04/02/24 04/02/24 04/02/24 09:28 12:46 12:57 WBC RBC Hgb Hct MCV MCH MCHC RDW Plt Count MPV Immature Gran % (Auto) Neut % (Auto) Lymph % (Auto) [place] % (Auto) Eos % (Auto) Baso % (Auto) Lymph # (Auto) [place] # (Auto) Eos # (Auto) Baso # (Auto) Abs Immat Gran (auto) Absolute Neuts (auto) Absolute Nucleated RBC Nucleated RBC % APTT 57.6 H Sodium Potassium Chloride Carbon Dioxide Anion Gap BUN Creatinine Estim Creat Clear Calc Estimated GFR Glucose POC Capillary Glucose 100 157 H Calcium Total Bilirubin AST ALT Alkaline Phosphatase Total Protein Albumin 04/02/24 04/02/24 04/02/24 15:15 19:36 20:07 WBC 9.0 RBC 3.90 L Hgb 11.8 L Hct 39.2 MCV 100.5 H MCH 30.3 MCHC 30.1 L RDW 14.6 H Plt Count 247 MPV 9.7 Immature Gran % (Auto) 0.4 Neut % (Auto) 83.4 H Lymph % (Auto) 8.1 L [place] % (Auto) 5.2 Eos % (Auto) 2.5 Baso % (Auto) 0.4 Lymph # (Auto) 0.73 L [place] # (Auto) 0.5 Eos # (Auto) 0.2 Baso # (Auto) 0.0 Abs Immat Gran (auto) 0.04 H Absolute Neuts (auto) 7.5 H Absolute Nucleated RBC 0.000 Nucleated RBC % 0.0 APTT 105.3 H Sodium Potassium Chloride Carbon Dioxide Anion Gap BUN Creatinine Estim Creat Clear Calc Estimated GFR Glucose POC Capillary Glucose 151 H 130 H Calcium Total Bilirubin AST ALT Alkaline Phosphatase Total Protein Albumin 04/03/24 04/03/24 02:28 08:02 WBC 9.0 RBC 3.59 L Hgb 11.0 L Hct 35.6 L MCV 99.2 MCH 30.6 MCHC 30.9 L RDW 14.6 H Plt Count 258 MPV 9.9 Immature Gran % (Auto) 0.3 Neut % (Auto) 81.5 H Lymph % (Auto) 9.8 L [place] % (Auto) 5.1 Eos % (Auto) 2.9 Baso % (Auto) 0.4 Lymph # (Auto) 0.88 L [place] # (Auto) 0.5 Eos # (Auto) 0.3 Baso # (Auto) 0.0 Abs Immat Gran (auto) 0.03 Absolute Neuts (auto) 7.3 H Absolute Nucleated RBC 0.000 Nucleated RBC % 0.0 APTT 53.0 H Sodium 143 Potassium 4.2 Chloride 105 Carbon Dioxide 28 Anion Gap 10 BUN 46 H Creatinine 1.84 H Estim Creat Clear Calc 36 Estimated GFR 27 L Glucose 118 H POC Capillary Glucose 117 H Calcium 9.7 Total Bilirubin 0.5 AST 19 ALT 13 Alkaline Phosphatase 105 Total Protein 7.0 Albumin 3.7 Quality VTE Prophylaxis VTE prophylaxis: mechanical ordered and pharmacologic ordered Hospitalist MIPS Advance Care Plan I have confirmed that the patient's Advanced Care Plan is present, code status is documented, or surrogate decision maker is listed in patient medical record.: Yes Medication Reconciliation I have utilized all available resources to obtain, update and review the patients current medications (includes all prescriptions, OTC, herbals, cannabis, and nutritional supplements).: Yes
[2024-04-03 09:41] LABS: Magnesium 2.2 mg/dL (1.6-2.3)
[2024-04-03 09:48] LABS: Partial Thromboplastin Time 165.9 Seconds (22.3-36.8)
[2024-04-03 09:50] LABS: NT Pro B Type Natriuretic Pept 3090 pg/mL (19.9-100)
[2024-04-03] MEDS: ATORVASTATIN 40 MG TABLET 80 MG PO (09:51)
[2024-04-03] MEDS: ESCITALOPRAM OXALATE 10 MG TABLET 20 MG PO (09:52)
[2024-04-03] MEDS: ISOSORBIDE MONONITRATE 60 MG TAB.ER.24H 120 MG PO (09:52)
[2024-04-03] MEDS: SACUBITRIL/VALSARTAN 97-103 MG TABLET 1 TAB PO ×2 (09:52→21:48)
[2024-04-03] MEDS: EMPAGLIFLOZIN 10 MG TABLET PO (09:52)
[2024-04-03] MEDS: busPIRone HCL 5 MG TABLET PO ×2 (09:52→17:06)
[2024-04-03] MEDS: EZETIMIBE 10 MG TABLET PO (09:52)
[2024-04-03] MEDS: FUROSEMIDE INJ 40 MG/4 ML VIAL 20 MG IV PUSH ×2 (09:52→17:06)
[2024-04-03] MEDS: METOPROLOL TARTRATE 12.5 MG TABLET PO ×2 (09:52→21:48)
--- NOTE | 2024-04-03 09:53 | P.CDI_ITS ---
<Statement entered by Peace Dominguez, FINANCE DIRECTOR - 04/03/24 10:20> Morbid obesity CDI Query Clarification Request Patient with a BMI of 52.7 please provide a diagnosis to accompany this finding: * Overweight * Obesity * Morbid Obesity * Other/Unknown
--- NOTE | 2024-04-03 09:53 | WPDCDIQUERY2 ---
CDI Query Clarification Request Patient with a BMI of 52.7 please provide a diagnosis to accompany this finding: Overweight Obesity Morbid Obesity Other/Unknown
[2024-04-03] MEDS: allopurinoL 100 MG TABLET 300 MG PO (09:58)
[2024-04-03] MEDS: GABAPENTIN 300 MG CAPSULE PO ×3 (09:59→17:06)
[2024-04-03] MEDS: ACETAMINOPHEN 325 MG TABLET 650 MG PO (11:54)
--- NOTE | 2024-04-03 11:59 | P.CONCA_ITS ---
Assessment and Plan Assessment and plan (1) Atrial fibrillation with RVR: Code(s): I48.91 - Unspecified atrial fibrillation Status: Acute Assessment and Plan: -AFib is new onset. She converted back to sinus rhythm with IV metoprolol. Her rates are now in the 70s -Continue metoprolol 12.5 mg p.o. b.i.d. -ChadsVasc score 6 (age 64=1, congestive heart failure=1, hypertension=1, DM=1, CAD=1, female sex=1). She was started on heparin drip. Stop heparin drip and start Eliquis 5 mg p.o. b.i.d. -Plan for AIDEN guided cardioversion as outpatient after 4 weeks of uninterrupted anticoagulation with Eliquis -Check TSH, free T3 and T4 -check and replace electrolytes as needed keeping potassium greater than 4 and magnesium greater than 2 (2) Acute on chronic systolic heart failure: Code(s): I50.23 - Acute on chronic systolic (congestive) heart failure Status: Acute Assessment and Plan: -NT proBNP elevated to 3090. TTE this hospitalization showed depressed LVEF of 40-45% -Continue guideline directed medical therapy with metoprolol, Entresto, empagliflozin, eplerenone -IV Lasix 20 mg b.i.d. -Check weight and in send outs daily -Monitor renal function daily (3) Acute hypoxic respiratory failure: Code(s): J96.01 - Acute respiratory failure with hypoxia Status: Acute Assessment and Plan: -Etiology of acute hypoxic respiratory failure could be multifactorial secondary to acute on chronic heart failure, obesity hypoventilation syndrome, obstructive sleep apnea -Supplemental oxygen (4) Acute kidney injury superimposed on chronic kidney disease: Code(s): N17.9 - Acute kidney failure, unspecified; N18.9 - Chronic kidney disease, unspecified Status: Acute Assessment and Plan: -Management per primary team (5) Diabetes: Code(s): E11.9 - Type 2 diabetes mellitus without complications Status: Acute Assessment and Plan: -Management per primary team (6) Coronary artery disease: Code(s): I25.10 - Atherosclerotic heart disease of [place] coronary artery without angina pectoris Status: Acute Assessment and Plan: -Recent PCI to unknown vessel in 02/2024 for exertional angina while on anti anginal meds. Obtain cath report from outside hospital -Patient has atypical chest on Monday which has since resolved. Exertional chest pain resolved after her recent PCI in 02/2024. Troponin negative. EKG sinus rhythm with left bundle branch block -Continue Plavix 75 mg daily for 1 year -Given she is going to be started on Eliquis, stop aspirin after 1 week -Continue statin, beta-marcin, Imdur -Follow-up with outpatient outpatient facility physical therapist as scheduled History of Present Illness History of Present Illness Consult date/time: 04/03/24 11:59 Reason For Visit: New onset atrial fibrillation with RVR, Acute resp Narrative: 64-year-old female with history of coronary artery disease s/p PCI in 02/2024 (unknown vessel), ischemic cardiomyopathy (per patient her last EF was 47% by echo in 02/2024), CKD (baseline creatinine 1.5), HTN, HLD, DM, obesity, DAMI presents with CC of lower extremity pain and swelling, palpitations. She reports pain in her legs since last . The pain started suddenly. She also noticed swelling in her legs. She has not had any recent weight gain. She reports chest tightness with radiation to the back that was worse with deep inspiration since Monday. This has since resolved. She reports having chest pain with exertion that was radiating to her shoulders over the last couple of months and she had PCI to an unknown vessel in 02/2024 for angina while on anti anginal meds. The exertional chest pain has now resolved. She reports off and on shortness of breath. She has off and on palpitations. She was noted to have a AFib with RVR for which she received IV metoprolol and converted back to sinus rhythm. Cardiology was consulted for further management. She denies any chest pain, shortness of breath, palpitations, dizziness, lightheadedness, leg pain, syncope, nausea, emesis, abdominal pain, headache, focal weakness at this time. Work up: H Troponin: negative x 2 NT pro-BNP: 3090 EKG: A fib with RVR, LBBB EKG: SR with LBBB TTE: difficult to interpret LVEF; appears mildly depressed, no significant valvular pathology CT chest: no PE LE venous doppler: no DVT Review of Systems 2 Review of Systems: A complete review of systems was performed and negative other than those mentioned in the [facility] Past Medical History Medical History (Updated 04/03/24 @ 16:33 by Kerrie Wilson MD) History of diabetes mellitus History of chronic kidney disease History of CHF (congestive heart failure) History of coronary artery disease Family History Family History (Updated 04/02/24 @ 14:47 by Sarita Henriquez, EVA) Mother Uterus cancer Alzheimer dementia S/P CABG x 3 Father Lung cancer Sibling Transplanted kidney Myocardial infarct Cerebrovascular accident Brittle diabetes Diabetes mellitus Social History Social History (Updated 04/01/24 @ 17:31 by Sarita Valverde PA-C) Smoking status: Never smoker Alcohol intake: never Substance use: never Substance use type: does not use Do You Feel Safe in your Home?: Yes Lack of Transportation: No Lack of Food: Never True Current Housing: I Do Not Have Housing Concerned About Future Housing: No Difficulty Paying Gas/Electric Bills: No Difficulty Paying for Meds: No Currently Unemployed: No Education: Associate Degree Difficulty w/ Childcare or Family Care: No Spiritual care concerns: No Meds Home Medications and Allergies Home Medications ?Medication ?Instructions ?Recorded ?Confirmed ?Type albuterol sulfate 90 mcg/actuation 2 puff inhalation PRN 04/02/24 04/02/24 History aerosol inhaler allopurinol 100 mg tablet See Rx Instructions PO .COMPLEX 04/02/24 04/02/24 History atorvastatin 80 mg tablet 80 mg PO DAILY 04/02/24 04/02/24 History buspirone 5 mg tablet 5 mg PO BID 04/02/24 04/02/24 History clopidogrel 75 mg tablet 75 mg PO DAILY 04/02/24 04/02/24 History empagliflozin 10 mg tablet 10 mg PO DAILY 04/02/24 04/02/24 History (Jardiance) eplerenone 25 mg tablet 25 mg PO DAILY 04/02/24 04/02/24 History escitalopram oxalate 20 mg tablet 20 mg PO DAILY 04/02/24 04/02/24 History ezetimibe 10 mg tablet 10 mg PO DAILY 04/02/24 04/02/24 History insulin lispro 100 unit/mL 1 sliding scale dose subcut ACHS 04/02/24 04/02/24 History subcutaneous pen (Humalog KwikPen (U-100) Insulin) isosorbide mononitrate 120 mg 120 mg PO DAILY 04/02/24 04/02/24 History tablet,extended release 24 hr levothyroxine 100 mcg tablet 100 mcg PO DAILY 04/02/24 04/02/24 History metoprolol succinate 25 mg 25 mg PO DAILY 04/02/24 04/02/24 History tablet,extended release 24 hr sacubitril 97 mg-valsartan 103 mg 1 tablet PO BID 04/02/24 04/02/24 History tablet (Entresto) semaglutide 0.25 mg or 0.5 mg (2 0.25 mg subcut WEEKLY 04/02/24 04/02/24 History mg/3 mL) subcutaneous pen injector (Ozempic) torsemide 10 mg tablet See Rx Instructions PO .COMPLEX 04/02/24 04/02/24 History Allergies Allergy/AdvReac Type Severity Reaction Status Date / Time Penicillins Allergy Severe Hives Verified 04/01/24 17:28 Vital Signs Vital Signs - 24 hr 04/02/24 13:14 04/02/24 13:23 04/02/24 14:16 Temperature 36.8 C Pulse Rate 76 77 76 Respiratory Rate 20 22 H 22 H Blood Pressure 112/92 H 112/92 H 149/69 H Pulse Oximetry 97 97 99 Oxygen Delivery Oxygen Flow Rate 04/02/24 15:31 04/02/24 16:00 04/02/24 18:00 Temperature 36.9 C Pulse Rate 75 86 90 Respiratory Rate 22 H Blood Pressure 152/72 H Pulse Oximetry 96 Oxygen Delivery Oxygen Flow Rate 04/02/24 19:52 04/02/24 20:00 04/02/24 20:00 Temperature 37.2 C Pulse Rate 84 81 Respiratory Rate 20 Blood Pressure 154/83 H Pulse Oximetry 94 94 Oxygen Delivery Nasal Cannula Oxygen Flow Rate 2 04/02/24 21:17 04/02/24 22:00 04/02/24 23:45 Temperature 36.8 C Pulse Rate 90 89 88 Respiratory Rate 20 Blood Pressure 127/45 L Pulse Oximetry 97 Oxygen Delivery Oxygen Flow Rate 04/03/24 00:00 04/03/24 00:00 04/03/24 02:00 Temperature Pulse Rate 82 78 Respiratory Rate Blood Pressure Pulse Oximetry 95 Oxygen Delivery Nasal Cannula Oxygen Flow Rate 2 04/03/24 03:46 04/03/24 04:00 04/03/24 04:00 Temperature 36.6 C Pulse Rate 78 Respiratory Rate 20 Blood Pressure 122/63 Pulse Oximetry 99 99 96 Oxygen Delivery Nasal Cannula Nasal Cannula Oxygen Flow Rate 2 2 04/03/24 04:00 04/03/24 06:00 04/03/24 08:00 Temperature 36.3 C L Pulse Rate 73 79 75 Respiratory Rate 20 Blood Pressure 140/60 Pulse Oximetry 96 Oxygen Delivery Oxygen Flow Rate 04/03/24 08:00 04/03/24 09:52 Temperature Pulse Rate 75 80 Respiratory Rate 20 Blood Pressure Pulse Oximetry 96 Oxygen Delivery Nasal Cannula Oxygen Flow Rate 3 Exam 2 Narrative: General: Alert oriented x3, no acute distress Neck: Supple, difficult to assess JVD as she has thick neck Chest: Bilaterally clear to auscultation, no rales or rhonchi Cardiac: S1, S2 +, regular rate, regular rhythm, no murmurs or rubs Extremities: Bilateral lower extremity edema 1+, no skin rash Neurologic: Alert and oriented x3, no focal neurological deficits Results Labs and Meds 04/03/24 02:28 04/03/24 02:28 Lab results: Cardiac Enzymes 04/03/24 Range/Units 02:28 AST 19 (14-36) U/L Coagulation 04/02/24 04/02/24 04/03/24 Range/Units 12:46 19:36 02:28 APTT 57.6 H 105.3 H 53.0 H (22.3-36.8) Seconds 04/03/24 Range/Units 09:22 APTT 165.9 H* (22.3-36.8) Seconds CBC 04/02/24 04/03/24 Range/Units 19:36 02:28 WBC 9.0 9.0 (4.5-10.0) K/mm3 RBC 3.90 L 3.59 L (4.2-5.4) M/mm3 Hgb 11.8 L 11.0 L (12.0-15.0) g/dL Hct 39.2 35.6 L (37.0-47.0) % Plt Count 247 258 (150-375) k/mm3 Lymph # (Auto) 0.73 L 0.88 L (0.9-3.2) K/mm3 [place] # (Auto) 0.5 0.5 (0.1-0.6) K/mm3 Eos # (Auto) 0.2 0.3 (0-0.3) K/mm3 Baso # (Auto) 0.0 0.0 (0.0-0.1) K/mm3 Comprehensive Metabolic Panel 04/03/24 Range/Units 02:28 Sodium 143 (137-145) mmol/L Potassium 4.2 (3.4-5.0) mmol/L Chloride 105 (98-107) mmol/L Carbon Dioxide 28 (22-30) mmol/L BUN 46 H (7-17) mg/dL Creatinine 1.84 H (0.7-1.0) mg/dL Glucose 118 H (65-110) mg/dL Calcium 9.7 (8.4-10.2) mg/dL AST 19 (14-36) U/L ALT 13 (6-35) U/L Alkaline Phosphatase 105 (38-126) U/L Total Protein 7.0 (6.3-8.2) g/dL Albumin 3.7 (3.5-5.1) g/dL Intake and Output 04/02/24 04/03/24 04/03/24 23:59 07:59 15:59 Intake Total 151.7 727.8 132.3 Output Total 1 1 Balance 150.7 726.8 132.3 Intake: IV 151.7 27.8 132.3 Heparin Sod/D5w 100 Units/ml 25 151.7 27.8 132.3 ,000 units In 250 ml @ 2,000 UNITS/HR 20 mls/hr IV CONT . [id number] [facility] Rx#:[id number] Oral 0 700 Output: Urine 0 1 Stool 1 Other: # Unmeasured Voids 1 1 Number of Bowel Movements Today 1 Patient Weight 04/03/24 23:59 Weight 130.7 kg
[2024-04-03 13:02] LABS: Glucose Point of Care 112 mg/dl (65-105)
--- NOTE | 2024-04-03 15:33 | PC.NURSE ---
Updated Dr. Wilson regarding pt's BP right arm 95/47 and left arm 102/47. Pt is to receive 20mg IVP Lasix at 1700. Order received to administer 1700 dose
[2024-04-03 16:56] LABS: Glucose Point of Care 118 mg/dl (65-105)
[2024-04-03] MEDS: allopurinoL 100 MG TABLET 200 MG PO (17:06)
[2024-04-03 17:08] LABS: Partial Thromboplastin Time 77.9 Seconds (22.3-36.8)
--- NOTE | 2024-04-03 20:02 | ADMGEN ---
This patient, Abigail Monreal, was admitted to 2 [facility] Room 240-. Patient/family oriented to hospital policies and general routines including ID bracelet, bed and alarms, visiting hours, pain management, procedures, bathroom and other care routines, personal items, smoking policy, room service/diet, and visiting hours. Information on how to activate the Rapid Response Team has been discussed. Patient/Family are encouraged to report perceived risks to care and to ask questions if they do not understand what they are told or what they should do.
[2024-04-03 21:33] LABS: Glucose Point of Care 167 mg/dl (65-105)
[2024-04-03] MEDS: APIXABAN 5 MG TABLET PO (21:49)
[2024-04-04] VITALS (13 sets, daily range): BP systolic 108–145; BP diastolic 59–76; PULSE 66–93; RESP 20–22; TEMP 36.6–36.9; O2SAT 92–98
[2024-04-04 02:27] LABS: Glucose Point of Care 125 mg/dl (65-105)
[2024-04-04 04:28] LABS: Glucose Point of Care 150 mg/dl (65-105)
[2024-04-04 04:47] LABS: Fractional Inspired Oxygen 28 %; HCO3 VBG 30.2 mEq/l (24.0-30.0); PO2 VBG 33.8 mmHg (35.0-45.0)
[2024-04-04 04:50] LABS: Device NASAL CANNULA
[2024-04-04 04:50] LABS: Basophils Percent Auto 0.4 % (0.2-1.2); Eosinophils Absolute Auto 0.1 K/mm3 (0-0.3); Hematocrit 35.7 % (37.0-47.0); Hemoglobin 10.3 g/dL (12.0-15.0); Immature Granulocyte Absolute 0.07 K/mm3 (0.00-0.031); Immature Granulocyte Percent A 0.8 % (0-0.5); Lymphocytes Percent Auto 6.5 % (18.3-44.2); Mean Corpuscular HGB Conc 28.9 g/dl (32-36); Mean Corpuscular Hemoglobin 29.8 pg (26-34); Mean Corpuscular Volume 103.2 fl (80-100); Mean Platelet Volume 9.5 fl (7.4-10.4); Monocytes Absolute Auto 0.4 K/mm3 (0.1-0.6); Monocytes Percent Auto 4.3 % (2.6-8.5); Neutrophils Absolute Auto 8.1 K/mm3 (1.3-6.7); Platelet Count Result 266 k/mm3 (150-375); Red Blood Count 3.46 M/mm3 (4.2-5.4); Red Cell Distribution Width 14.6 % (11.5-14.5); White Blood Count 9.3 K/mm3 (4.5-10.0)
[2024-04-04 04:54] LABS: PCO2 VBG 83.8 mmHg (42.0-48.0); pH VBG 7.174 (7.300-7.400)
[2024-04-04 05:06] LABS: Ammonia < 9 umol/L (9-30)
[2024-04-04 05:08] LABS: Alanine Aminotransferase 12 U/L (6-35); Albumin Level 3.6 g/dL (3.5-5.1); Alkaline Phosphatase 94 U/L (38-126); Anion Gap 9 mmol/L (4-12); Aspartate Amino Transferase 22 U/L (14-36); Bilirubin,Total 0.5 mg/dL (0.2-1.3); Blood Urea Nitrogen 53 mg/dL (7-17); Calcium 9.2 mg/dL (8.4-10.2); Carbon Dioxide 31 mmol/L (22-30); Chloride 102 mmol/L (98-107); Estimated CRCL calculation 20 ml/min; Estimated Glomerular Filt Rate 14; Glucose 154 mg/dL (65-110); Magnesium 2.4 mg/dL (1.6-2.3); Sodium 142 mmol/L (137-145)
[2024-04-04 05:14] LABS: NT Pro B Type Natriuretic Pept 3780 pg/mL (19.9-100)
[2024-04-04] MEDS: LEVOTHYROXINE SODIUM 100 MCG TABLET PO (06:07)
--- NOTE | 2024-04-04 06:54 | P.PNIM_ITS ---
Progress Note: A&P Assessment and Plan (1) Atrial fibrillation with RVR: Code(s): I48.91 - Unspecified atrial fibrillation Status: Acute Assessment and Plan: New onset - corrected and stable - NS in 70/80's at this time. Cardiology consulted pending recommendations Heparin drip per protocol d/c'd Echo noted difficulty reading due to image quality. trend labs - check mag and K daily (2) Acute hypoxic respiratory failure: Code(s): J96.01 - Acute respiratory failure with hypoxia Status: Acute Assessment and Plan: CTA negative for PE Lasix x1 given to offset overload. Oxygen as needed to maintain above 90% --> currently on O2 at 4 liters per nasal canula Hx of DAMI - uses CPAP at HS, does not tolerate this hospitals, -->am VBG - pH 7.141, PCo2 83 --> started on Bipap -->repeat ABG's pH around 7.26 and pCO2 exceeding 60 mmHg. -->transferred back to the [facility] Unit ([facility]U) for treatment with BiPAP in AVAPS mode. --> Pulmonolgy consulted (3) CHF (congestive heart failure): Code(s): I50.9 - Heart failure, unspecified Status: Acute Assessment and Plan: IV Lasix b.i.d. - check BNP Cardiology consulted ECHO - difficult to read due to image quality Monitor kidney and respiratory function Continue cardiac medications (4) WILLIAN (acute kidney injury): Code(s): N17.9 - Acute kidney failure, unspecified Status: Acute Assessment and Plan: Creatinine unknown, no kidney disease listed Due to diuresis will hold off on IV fluids Daily CMP - trend Avoid nephrotoxic medications (5) Hypothyroidism: Code(s): E03.9 - Hypothyroidism, unspecified Status: Acute Assessment and Plan: Continue home Synthroid (6) Diabetes: Code(s): E11.9 - Type 2 diabetes mellitus without complications Status: Acute Assessment and Plan: Diabetic diet SSI and Lantus Patient states that she recently started on Ozempic and her A1c is about 7 now Started on gabapentin for neuropathy Plan Miscellaneous care. 1. Code status. Full 2. VTE prophylaxis. SCDs; Heparin gtt 3. Nutrition. Carb-controlled; heart healthy Time Spent With Patient Time with patient: Greater than 35 minutes (65 minutes) Subjective Date/time seen: 04/04/24 06:54 Interval history: 64yo F with a mhx signficant for CAD s/p PCI, CHFrEF, dyslipidemia, obesity, DAMI, Hypertension, DM2 found to have AFib with RVR and acute respiratory failure. This early am, patient was found to be confused and more lethargic. VBG and labs ordered. Ph 7.141 pCO2 83. patient was placed on BiPap. Patient however would take it off. Repeat pH around 7.26 and pCO2 exceeding 60 mmHg. Pulmonology was consulted. She has improved cognitively. Patient was alert and complaining about her Bipap on reassessment. patient is waiting to be transferred back to the [facility]mediate [facility] Unit ([facility]U) for treatment with BiPAP in AVAPS mode. Review of Systems Review of Systems: All systems reviewed & are unremarkable except as noted in HPI and below Constitutional: Constitutional: Reports as per HPI and Reports no additional constitutional complaints Eyes: Eyes: Reports as per HPI and Reports no additional eye complaints ENT: Reports system reviewed and no additional complaints, except as documented Cardiovascular: Cardiovascular: Reports as per HPI and Reports no additional cardiovascular complaints Respiratory: Respiratory: Reports as per HPI and Reports no additional respiratory complaints Gastrointestinal: Gastrointestinal: Reports as per HPI and Reports no additional gastrointestinal complaints Genitourinary: Genitourinary: Reports no additional female genitourinary complaints Musculoskeletal: Musculoskeletal: Reports no additional musculoskeletal complaints Integumentary/Breasts: Skin/Breast: Reports system reviewed and no additional complaints, except as docu Neurologic: Reports system reviewed and no additional complaints, except as documented Exam Const: General: cooperative, no acute distress, alert and awake Nutritional Appearance: obese Orientation/consciousness: patient oriented x3 HENMT: Head: normal to inspection and normocephalic Ears: TM's normal bilaterally Eyes: General: appearance normal, both eyes and all related structures Pupils: Equal, round and reactive pupils present Neck: Neck: normal visual inspection, full ROM and supple Chest: Chest palpation & inspection: normal inspection of the chest Resp: Effort & Inspection: normal respiratory effort Auscultation: clear to auscultation bilaterally Cardio: Rate: regular rate Rhythm: abnormal rhythm Heart sounds: S1 normal heart sound present and S2 normal heart sound present GI: Inspection: normal to inspection and obesity Auscultation: normal bowel sounds Skin: General skin exam: normal color and no rashes or lesions noted Neuro: General: patient oriented x3 and gait normal Cranial nerves: Yes Equal, round and reactive pupils present Speech: normal speech Motor exam (neuro): 5/5 motor strength present throughout and Normal motor muscle tone present throughout Extrem: General: normal to inspection Psych: Mental Status: mental status grossly normal Affect: normal affect Objective Data Vital Signs Vital Signs: Vital Signs - 24 hr 04/03/24 08:00 04/03/24 08:00 04/03/24 08:00 Temperature 97.4 F L Pulse Rate 75 75 82 Respiratory Rate 20 20 Blood Pressure 140/60 Pulse Oximetry 96 96 Oxygen Delivery Nasal Cannula Oxygen Flow Rate 3 04/03/24 09:12 04/03/24 09:52 04/03/24 10:00 Temperature Pulse Rate 80 72 Respiratory Rate Blood Pressure Pulse Oximetry 93 Oxygen Delivery Nasal Cannula Oxygen Flow Rate 4 04/03/24 12:00 04/03/24 12:00 04/03/24 12:00 Temperature 98.2 F Pulse Rate 76 76 76 Respiratory Rate 20 20 Blood Pressure 126/57 L Pulse Oximetry 96 96 Oxygen Delivery Nasal Cannula Oxygen Flow Rate 3 04/03/24 14:00 04/03/24 15:22 04/03/24 15:32 Temperature 98.2 F Pulse Rate 70 73 Respiratory Rate 21 H Blood Pressure 95/47 L 102/46 L Pulse Oximetry 93 Oxygen Delivery Oxygen Flow Rate 04/03/24 16:00 04/03/24 16:00 04/03/24 19:48 Temperature 97.3 F L Pulse Rate 73 76 74 Respiratory Rate 21 H 20 Blood Pressure 121/45 L Pulse Oximetry 93 93 Oxygen Delivery Nasal Cannula Oxygen Flow Rate 2 04/03/24 20:00 04/03/24 20:00 04/03/24 21:48 Temperature Pulse Rate 74 87 Respiratory Rate Blood Pressure Pulse Oximetry 93 Oxygen Delivery Nasal Cannula Oxygen Flow Rate 2 04/04/24 00:00 04/04/24 04:00 04/04/24 05:18 Temperature 97.8 F Pulse Rate 69 83 93 Respiratory Rate 20 Blood Pressure 134/76 Pulse Oximetry 96 Oxygen Delivery Oxygen Flow Rate Intake/Output Intake/Output: Intake & Output 04/01/24 04/02/24 04/03/24 04/04/24 23:59 23:59 23:59 23:59 Intake Total 250.0 1190.0 240 Output Total 1 301 Balance 249.0 889.0 240 Meds/Results Medications: Active Medications Generic Name Dose Route Start Last Admin Trade Name Freq PRN Reason Stop Dose Admin Acetaminophen 650 mg 04/03/24 10:34 04/03/24 11:54 Acetaminophen 325 Mg Tablet PO 650 mg Q4H PRN Administration Headache Hydrocodone Bitart/Acetaminophen 1 tab 04/03/24 02:27 04/03/24 02:47 Hydrocodone/Acetaminophen (*Crx) 7.5-325 Mg Tablet PO 1 tab Q6H PRN Administration Pain Rated 7-10 Albuterol/Ipratropium 3 ml 04/02/24 00:22 Ipratropium 0.5 Mg/Albuterol Sulfate 2.5 Mg Ampul.Neb 3 Ml INHALATION Q4HRT PRN shortness of breath/Wheezing Allopurinol 300 mg 04/03/24 09:00 04/03/24 09:58 Allopurinol 100 Mg Tablet PO 300 mg QAM PILO Administration Allopurinol 200 mg 04/03/24 18:00 04/03/24 17:06 Allopurinol 100 Mg Tablet PO 200 mg QPM PILO Administration Apixaban 5 mg 04/03/24 21:00 04/03/24 21:49 Apixaban 5 Mg Tablet PO 5 mg Q12HR PILO Administration Atorvastatin Calcium 80 mg 04/03/24 09:00 04/03/24 09:51 Atorvastatin 40 Mg Tablet PO 80 mg DAILY PILO Administration Buspirone HCl 5 mg 04/02/24 17:00 04/03/24 17:06 Buspirone Hcl 5 Mg Tablet PO 5 mg BID PILO Administration Ezetimibe 10 mg 04/03/24 09:00 04/03/24 09:52 Ezetimibe 10 Mg Tablet PO 10 mg DAILY PILO Administration Empagliflozin 10 mg 04/03/24 09:00 04/03/24 09:52 Empagliflozin 10 Mg Tablet PO 10 mg DAILY PILO Administration Escitalopram Oxalate 20 mg 04/03/24 09:00 04/03/24 09:52 Escitalopram Oxalate 10 Mg Tablet PO 20 mg DAILY PILO Administration Furosemide 20 mg 04/02/24 00:25 04/03/24 17:06 Furosemide Inj 40 Mg/4 Ml Vial IV PUSH 20 mg BID PILO Administration Gabapentin 300 mg 04/02/24 13:00 04/03/24 17:06 Gabapentin 300 Mg Capsule PO 300 mg TID PILO Administration Isosorbide Mononitrate 120 mg 04/03/24 09:00 04/03/24 09:52 Isosorbide Mononitrate 60 Mg Tab.Er.24h PO 120 mg DAILY PILO Administration Levothyroxine Sodium 100 mcg 04/03/24 06:30 04/04/24 06:07 Levothyroxine Sodium 100 Mcg Tablet PO 100 mcg DAILY@0630 PILO Administration Melatonin 5 mg 04/02/24 00:22 Melatonin 5 Mg Tablet PO HS PRN Insomnia Metoprolol Tartrate 12.5 mg 04/02/24 00:30 04/03/24 21:48 Metoprolol Tartrate 12.5 Mg Tablet PO 12.5 mg Q12HR PILO Administration Prochlorperazine Edisylate 10 mg 04/02/24 00:22 Prochlorperazine Edisylate 10 Mg/2 Ml Vial IV PUSH Q6H PRN Nausea And Vomiting Sacubitril/Valsartan 1 tab 04/02/24 21:00 04/03/24 21:48 Sacubitril/Valsartan 97-103 Mg Tablet PO 1 tab Q12HR PILO Administration Radiology Results: ITS Impressions Chest CTA 04/01/24 19:46 IMPRESSION: No CT evidence of acute pulmonary embolus. No acute process detected in the chest. Venous Doppler Study 04/01/24 19:59 IMPRESSION: Patent bilateral lower extremity veins. No evidence of deep venous thrombosis. Labs Labs: Laboratory Results - last 24 hr 04/03/24 04/03/24 04/03/24 08:02 09:22 12:24 WBC RBC Hgb Hct MCV MCH MCHC RDW Plt Count MPV Immature Gran % (Auto) Neut % (Auto) Lymph % (Auto) [place] % (Auto) Eos % (Auto) Baso % (Auto) Lymph # (Auto) [place] # (Auto) Eos # (Auto) Baso # (Auto) Abs Immat Gran (auto) Absolute Neuts (auto) Absolute Nucleated RBC Nucleated RBC % APTT 165.9 H* VBG pH VBG pCO2 VBG pO2 VBG HCO3 O2 Delivery Device O2 Liters/Min FiO2 Sodium Potassium Chloride Carbon Dioxide Anion Gap BUN Creatinine Estim Creat Clear Calc Estimated GFR Glucose POC Capillary Glucose 117 H 112 H Calcium Magnesium 2.2 Total Bilirubin AST ALT Alkaline Phosphatase Ammonia NT-Pro-B Natriuret Pep 3090 H Total Protein Albumin 04/03/24 04/03/24 04/03/24 16:49 16:50 19:54 WBC RBC Hgb Hct MCV MCH MCHC RDW Plt Count MPV Immature Gran % (Auto) Neut % (Auto) Lymph % (Auto) [place] % (Auto) Eos % (Auto) Baso % (Auto) Lymph # (Auto) [place] # (Auto) Eos # (Auto) Baso # (Auto) Abs Immat Gran (auto) Absolute Neuts (auto) Absolute Nucleated RBC Nucleated RBC % APTT 77.9 H VBG pH VBG pCO2 VBG pO2 VBG HCO3 O2 Delivery Device O2 Liters/Min FiO2 Sodium Potassium Chloride Carbon Dioxide Anion Gap BUN Creatinine Estim Creat Clear Calc Estimated GFR Glucose POC Capillary Glucose 118 H 167 H Calcium Magnesium Total Bilirubin AST ALT Alkaline Phosphatase Ammonia NT-Pro-B Natriuret Pep Total Protein Albumin 04/04/24 04/04/24 04/04/24 02:20 04:11 04:41 WBC 9.3 RBC 3.46 L Hgb 10.3 L Hct 35.7 L MCV 103.2 H MCH 29.8 MCHC 28.9 L RDW 14.6 H Plt Count 266 MPV 9.5 Immature Gran % (Auto) 0.8 H Neut % (Auto) 87.0 H Lymph % (Auto) 6.5 L [place] % (Auto) 4.3 Eos % (Auto) 1.0 Baso % (Auto) 0.4 Lymph # (Auto) 0.60 L [place] # (Auto) 0.4 Eos # (Auto) 0.1 Baso # (Auto) 0.0 Abs Immat Gran (auto) 0.07 H Absolute Neuts (auto) 8.1 H Absolute Nucleated RBC 0.000 Nucleated RBC % 0.0 APTT VBG pH VBG pCO2 VBG pO2 VBG HCO3 O2 Delivery Device O2 Liters/Min FiO2 Sodium 142 Potassium 5.0 Chloride 102 Carbon Dioxide 31 H Anion Gap 9 BUN 53 H Creatinine 3.30 H Estim Creat Clear Calc 20 Estimated GFR 14 L Glucose 154 H POC Capillary Glucose 125 H 150 H Calcium 9.2 Magnesium 2.4 H Total Bilirubin 0.5 AST 22 ALT 12 Alkaline Phosphatase 94 Ammonia < 9 L NT-Pro-B Natriuret Pep 3780 H Total Protein 7.0 Albumin 3.6 04/04/24 04:43 WBC RBC Hgb Hct MCV MCH MCHC RDW Plt Count MPV Immature Gran % (Auto) Neut % (Auto) Lymph % (Auto) [place] % (Auto) Eos % (Auto) Baso % (Auto) Lymph # (Auto) [place] # (Auto) Eos # (Auto) Baso # (Auto) Abs Immat Gran (auto) Absolute Neuts (auto) Absolute Nucleated RBC Nucleated RBC % APTT VBG pH 7.174 L* VBG pCO2 83.8 H* VBG pO2 33.8 L VBG HCO3 30.2 H O2 Delivery Device Nasal cannula O2 Liters/Min 2.0 FiO2 28 Sodium Potassium Chloride Carbon Dioxide Anion Gap BUN Creatinine Estim Creat Clear Calc Estimated GFR Glucose POC Capillary Glucose Calcium Magnesium Total Bilirubin AST ALT Alkaline Phosphatase Ammonia NT-Pro-B Natriuret Pep Total Protein Albumin Quality VTE Prophylaxis VTE prophylaxis: mechanical ordered and pharmacologic ordered
[2024-04-04 08:13] LABS: Glucose Point of Care 132 mg/dl (65-105)
[2024-04-04 08:43] LABS: Alveolar/Arterial O2 Gradient 39.9 mmHg; Base Excess ABG -0.7 mEq/l (+/-2.0); Fractional Inspired Oxygen 24 %; HCO3 ABG 27.1 mEq/l (22.0-26.0); Oxygen Content ABG 13.3 %vol (16.0-22.0); Oxyhemoglobin 89.1 % THb (90.0-100.0); PO2 ABG 58.5 mmHg (80.0-100.0); PO2 FiO2 Ratio Arterial Blood 2.44 %; Total Hemoglobin 10.6 g/dL (12.0-18.0)
[2024-04-04 08:46] LABS: PCO2 ABG 61.1 mmHg (35.0-45.0); pH ABG 7.264 (7.350-7.450)
[2024-04-04] MEDS: EZETIMIBE 10 MG TABLET PO (08:46)
[2024-04-04] MEDS: ESCITALOPRAM OXALATE 10 MG TABLET 20 MG PO (08:46)
[2024-04-04] MEDS: SACUBITRIL/VALSARTAN 97-103 MG TABLET 1 TAB PO ×2 (08:46→20:14)
[2024-04-04] MEDS: FUROSEMIDE INJ 40 MG/4 ML VIAL 20 MG IV PUSH ×2 (08:46→16:59)
[2024-04-04 08:47] LABS: Device BIPAP; Expiratory Pressure 8 cmH2O; Inspiratory Pressure 16 cmH2O; Modified Allen's Test Pass; Oxygen Saturation ABG 85.8 % (95.0-100.0); Site Drawn LEFT RADIAL
[2024-04-04] MEDS: GABAPENTIN 300 MG CAPSULE PO ×3 (08:47→16:59)
[2024-04-04] MEDS: METOPROLOL TARTRATE 12.5 MG TABLET PO ×2 (08:47→20:14)
[2024-04-04] MEDS: ATORVASTATIN 40 MG TABLET 80 MG PO (08:47)
[2024-04-04] MEDS: allopurinoL 100 MG TABLET 300 MG PO (08:47)
[2024-04-04] MEDS: APIXABAN 5 MG TABLET PO ×2 (08:47→20:14)
[2024-04-04] MEDS: ISOSORBIDE MONONITRATE 60 MG TAB.ER.24H 120 MG PO (08:47)
[2024-04-04] MEDS: EMPAGLIFLOZIN 10 MG TABLET PO (08:47)
[2024-04-04] MEDS: busPIRone HCL 5 MG TABLET PO ×2 (08:47→16:59)
--- NOTE | 2024-04-04 09:05 | P.CONPL_ITS ---
Assessment and Plan Assessment and plan (1) Acute hypoxic respiratory failure: Code(s): J96.01 - Acute respiratory failure with hypoxia Status: Acute (2) Hypercapnic respiratory failure: Code(s): J96.92 - Respiratory failure, unspecified with hypercapnia Status: Acute Assessment and Plan: A 64-year-old female with morbid obesity and a history of sleep apnea, previously managed with CPAP therapy until a device malfunction approximately six weeks ago, presented with hypoxemia. She was diagnosed with atrial fibrillation with rapid ventricular response and has since received treatment, returning to normal sinus rhythm. Arterial blood gas analysis indicated acute respiratory acidosis, with a pH around 7.26 and pCO2 exceeding 60 mmHg. It is noteworthy that there was no elevation in chronic bicarbonate levels to suggest chronic hypercapnic respiratory failure. The acute respiratory acidosis is likely related to her congestive heart failure and atrial fibrillation. On physical examination, her lungs are clear with no wheezing. Due to persistent uncorrected hypercapnia, she will be transferred back to the [facility]mediate [facility] Unit ([facility]U) for treatment with BiPAP in AVAPS mode. Will continue to follow the patient along with you. (3) CHF (congestive heart failure): Code(s): I50.9 - Heart failure, unspecified Status: Acute (4) Acute on chronic systolic heart failure: Code(s): I50.23 - Acute on chronic systolic (congestive) heart failure Status: Acute (5) Coronary artery disease: Code(s): I25.10 - Atherosclerotic heart disease of [place] coronary artery without angina pectoris Status: Acute (6) Atrial fibrillation with RVR: Code(s): I48.91 - Unspecified atrial fibrillation Status: Acute (7) Diabetes: Code(s): E11.9 - Type 2 diabetes mellitus without complications Status: Acute (8) WILLIAN (acute kidney injury): Code(s): N17.9 - Acute kidney failure, unspecified Status: Acute History of Present Illness History of Present Illness Consult date: 04/04/24 Chief complaint: New onset atrial fibrillation with RVR, Acute resp Narrative: A 64-year-old female presented with lower leg pain and hypoxia. Initially assessed at a local urgent care center, she was transferred to the emergency room due to hypoxemia. She was diagnosed with atrial fibrillation and evaluated by the Cardiology Services, receiving treatment that restored her to normal sinus rhythm. A chest CT scan revealed no evidence of pulmonary embolism or acute parenchymal lung disease. Arterial blood gas analysis indicated acute respiratory acidosis, and she was placed on BiPAP support at 16/8 cm H2O along with supplemental oxygen. I was consulted to evaluate her for hypercapnic respiratory failure. Currently, she remains on BiPAP support and reports no respiratory symptoms such as shortness of breath, cough, fever, chills, hemoptysis, or wheezing. She is fully alert and reported sleeping well last night. The patient disclosed a history of sleep apnea diagnosed about eight years ago, for which she used a CPAP machine until it broke down six weeks ago. Since then, she has not used CPAP. While using the CPAP machine, she did not experience daytime somnolence or other symptoms of uncontrolled sleep-disordered breathing. She has no prior history of lung disease and is a never smoker. Her past medical history includes congestive heart failure, coronary artery disease, chronic kidney disease, and diabetes mellitus. Review of Systems 2 Review of Systems: Patient reports no significant weight changes. She has no history of orthopnea. No history of nasal allergies. No history of asthma. She has no nausea vomiting diarrhea constipation abdominal pain. She has no urinary issues. As stated she had some lower extremity pain but currently no pain. She has no history of lower extremity edema. [facility] Past Medical History Medical History (Updated 04/04/24 @ 09:15 by Siddhartha Chen MD) History of diabetes mellitus History of chronic kidney disease History of CHF (congestive heart failure) History of coronary artery disease Family History Family History (Updated 04/02/24 @ 14:47 by Sarita Henriquez RN) Mother Uterus cancer Alzheimer dementia S/P CABG x 3 Father Lung cancer Sibling Transplanted kidney Myocardial infarct Cerebrovascular accident Brittle diabetes Diabetes mellitus Social History Social History (Updated 04/01/24 @ 17:31 by Sarita Valverde PA-C) Smoking status: Never smoker Alcohol intake: never Substance use: never Substance use type: does not use Do You Feel Safe in your Home?: Yes Lack of Transportation: No Lack of Food: Never True Current Housing: I Do Not Have Housing Concerned About Future Housing: No Difficulty Paying Gas/Electric Bills: No Difficulty Paying for Meds: No Currently Unemployed: No Education: Associate Degree Difficulty w/ Childcare or Family Care: No Spiritual care concerns: No Meds Home Medications and Allergies Home Medications ?Medication ?Instructions ?Recorded ?Confirmed ?Type albuterol sulfate 90 mcg/actuation 2 puff inhalation PRN 04/02/24 04/02/24 History aerosol inhaler allopurinol 100 mg tablet See Rx Instructions PO .COMPLEX 04/02/24 04/02/24 History atorvastatin 80 mg tablet 80 mg PO DAILY 04/02/24 04/02/24 History buspirone 5 mg tablet 5 mg PO BID 04/02/24 04/02/24 History clopidogrel 75 mg tablet 75 mg PO DAILY 04/02/24 04/02/24 History empagliflozin 10 mg tablet 10 mg PO DAILY 04/02/24 04/02/24 History (Jardiance) eplerenone 25 mg tablet 25 mg PO DAILY 04/02/24 04/02/24 History escitalopram oxalate 20 mg tablet 20 mg PO DAILY 04/02/24 04/02/24 History ezetimibe 10 mg tablet 10 mg PO DAILY 04/02/24 04/02/24 History insulin lispro 100 unit/mL 1 sliding scale dose subcut ACHS 04/02/24 04/02/24 History subcutaneous pen (Humalog KwikPen (U-100) Insulin) isosorbide mononitrate 120 mg 120 mg PO DAILY 04/02/24 04/02/24 History tablet,extended release 24 hr levothyroxine 100 mcg tablet 100 mcg PO DAILY 04/02/24 04/02/24 History metoprolol succinate 25 mg 25 mg PO DAILY 04/02/24 04/02/24 History tablet,extended release 24 hr sacubitril 97 mg-valsartan 103 mg 1 tablet PO BID 04/02/24 04/02/24 History tablet (Entresto) semaglutide 0.25 mg or 0.5 mg (2 0.25 mg subcut WEEKLY 04/02/24 04/02/24 History mg/3 mL) subcutaneous pen injector (Ozempic) torsemide 10 mg tablet See Rx Instructions PO .COMPLEX 04/02/24 04/02/24 History Allergies Allergy/AdvReac Type Severity Reaction Status Date / Time Penicillins Allergy Severe Hives Verified 04/01/24 17:28 Vital Signs Vital Signs - 24 hr 04/03/24 09:12 04/03/24 09:52 04/03/24 10:00 Temperature Pulse Rate 80 72 Respiratory Rate Blood Pressure Pulse Oximetry 93 Oxygen Delivery Nasal Cannula Oxygen Flow Rate 4 04/03/24 12:00 04/03/24 12:00 04/03/24 12:00 Temperature 36.8 C Pulse Rate 76 76 76 Respiratory Rate 20 20 Blood Pressure 126/57 L Pulse Oximetry 96 96 Oxygen Delivery Nasal Cannula Oxygen Flow Rate 3 04/03/24 14:00 04/03/24 15:22 04/03/24 15:32 Temperature 36.8 C Pulse Rate 70 73 Respiratory Rate 21 H Blood Pressure 95/47 L 102/46 L Pulse Oximetry 93 Oxygen Delivery Oxygen Flow Rate 04/03/24 16:00 04/03/24 16:00 04/03/24 19:48 Temperature 36.3 C L Pulse Rate 73 76 74 Respiratory Rate 21 H 20 Blood Pressure 121/45 L Pulse Oximetry 93 93 Oxygen Delivery Nasal Cannula Oxygen Flow Rate 2 04/03/24 20:00 04/03/24 20:00 04/03/24 21:48 Temperature Pulse Rate 74 87 Respiratory Rate Blood Pressure Pulse Oximetry 93 Oxygen Delivery Nasal Cannula Oxygen Flow Rate 2 04/04/24 00:00 04/04/24 04:00 04/04/24 05:18 Temperature 36.6 C Pulse Rate 69 83 93 Respiratory Rate 20 Blood Pressure 134/76 Pulse Oximetry 96 Oxygen Delivery Oxygen Flow Rate 04/04/24 08:47 Temperature Pulse Rate 77 Respiratory Rate Blood Pressure Pulse Oximetry Oxygen Delivery Oxygen Flow Rate Exam 2 Narrative: GENERAL APPEARANCE: Well developed, well nourished, alert and cooperative, obese and appears to be in no acute distress while receiving a BiPAP support and supplemental oxygen SKIN: Inspection of the skin reveals no rashes, ulcerations or petechiae. HEENT: Sclerae anicteric and conjunctivae pink and moist. Extraocular movements were intact and pupils were equal, round, and reactive to light. The oral mucosa, hard and soft palate, tongue and posterior pharynx were normal. NECK: Supple. There was no thyroid enlargement, and no tenderness, or masses were felt. CHEST: Normal AP diameter and normal contour without any kyphoscoliosis. LUNGS: Auscultation of the lungs revealed normal breath sounds without any other adventitious sounds or rubs. CARDIAC: There was a regular rate and rhythm without any murmurs, gallops, rubs. ABDOMEN: Soft and nontender with normal bowel sounds. There was no organomegaly. LYMPH NODES: No lymphadenopathy was appreciated in the neck. EXTREMITIES: No cyanosis, clubbing or edema. NEUROLOGIC: Alert and oriented x 3. Normal affect. Results Laboratory Findings 04/04/24 04:41 04/04/24 04:41 ABG, PT/INR, D-dimer: ABG ABG pH 7.264 (7.350-7.450) L* 04/04/24 08:30 ABG pCO2 61.1 mmHg (35.0-45.0) H* 04/04/24 08:30 ABG pO2 58.5 mmHg (80.0-100.0) L 04/04/24 08:30 ABG O2 Saturation 85.8 % (95.0-100.0) L* 04/04/24 08:30 PT/INR, D-dimer PT 13.7 Seconds (11.1-14.7) 04/02/24 06:09 INR 1.0 04/02/24 06:09 Abnormal lab findings: Abnormal Labs 04/01/24 04/01/24 04/01/24 17:32 18:20 22:06 RBC 3.58 L Hgb 10.8 L Hct 35.3 L MCV MCHC 30.6 L RDW Immature Gran % (Auto) Neut % (Auto) 87.1 H Lymph % (Auto) 5.6 L Lymph # (Auto) 0.49 L Abs Immat Gran (auto) 0.04 H Absolute Neuts (auto) 7.7 H APTT ABG pH ABG pCO2 ABG pO2 ABG HCO3 ABG O2 Saturation ABG O2 Content VBG pH VBG pCO2 VBG pO2 VBG HCO3 Oxyhemoglobin Total Hemoglobin Carbon Dioxide BUN 46 H Creatinine 1.55 H Estimated GFR 33 L Glucose 62 L POC Capillary Glucose 52 L* 116 H Magnesium Ammonia NT-Pro-B Natriuret Pep 2450 H Albumin 04/02/24 04/02/24 04/02/24 05:46 12:46 12:57 RBC 3.31 L Hgb 9.8 L Hct 32.7 L MCV MCHC 30.0 L RDW 14.6 H Immature Gran % (Auto) Neut % (Auto) 74.9 H Lymph % (Auto) 13.9 L Lymph # (Auto) 0.86 L Abs Immat Gran (auto) Absolute Neuts (auto) APTT 57.6 H ABG pH ABG pCO2 ABG pO2 ABG HCO3 ABG O2 Saturation ABG O2 Content VBG pH VBG pCO2 VBG pO2 VBG HCO3 Oxyhemoglobin Total Hemoglobin Carbon Dioxide BUN 45 H Creatinine 1.59 H Estimated GFR 32 L Glucose POC Capillary Glucose 157 H Magnesium Ammonia NT-Pro-B Natriuret Pep Albumin 3.3 L 04/02/24 04/02/24 04/02/24 15:15 19:36 20:07 RBC 3.90 L Hgb 11.8 L Hct MCV 100.5 H MCHC 30.1 L RDW 14.6 H Immature Gran % (Auto) Neut % (Auto) 83.4 H Lymph % (Auto) 8.1 L Lymph # (Auto) 0.73 L Abs Immat Gran (auto) 0.04 H Absolute Neuts (auto) 7.5 H APTT 105.3 H ABG pH ABG pCO2 ABG pO2 ABG HCO3 ABG O2 Saturation ABG O2 Content VBG pH VBG pCO2 VBG pO2 VBG HCO3 Oxyhemoglobin Total Hemoglobin Carbon Dioxide BUN Creatinine Estimated GFR Glucose POC Capillary Glucose 151 H 130 H Magnesium Ammonia NT-Pro-B Natriuret Pep Albumin 04/03/24 04/03/24 04/03/24 02:28 08:02 09:22 RBC 3.59 L Hgb 11.0 L Hct 35.6 L MCV MCHC 30.9 L RDW 14.6 H Immature Gran % (Auto) Neut % (Auto) 81.5 H Lymph % (Auto) 9.8 L Lymph # (Auto) 0.88 L Abs Immat Gran (auto) Absolute Neuts (auto) 7.3 H APTT 53.0 H 165.9 H* ABG pH ABG pCO2 ABG pO2 ABG HCO3 ABG O2 Saturation ABG O2 Content VBG pH VBG pCO2 VBG pO2 VBG HCO3 Oxyhemoglobin Total Hemoglobin Carbon Dioxide BUN 46 H Creatinine 1.84 H Estimated GFR 27 L Glucose 118 H POC Capillary Glucose 117 H Magnesium Ammonia NT-Pro-B Natriuret Pep 3090 H Albumin 04/03/24 04/03/24 04/03/24 12:24 16:49 16:50 RBC Hgb Hct MCV MCHC RDW Immature Gran % (Auto) Neut % (Auto) Lymph % (Auto) Lymph # (Auto) Abs Immat Gran (auto) Absolute Neuts (auto) APTT 77.9 H ABG pH ABG pCO2 ABG pO2 ABG HCO3 ABG O2 Saturation ABG O2 Content VBG pH VBG pCO2 VBG pO2 VBG HCO3 Oxyhemoglobin Total Hemoglobin Carbon Dioxide BUN Creatinine Estimated GFR Glucose POC Capillary Glucose 112 H 118 H Magnesium Ammonia NT-Pro-B Natriuret Pep Albumin 04/03/24 04/04/24 04/04/24 19:54 02:20 04:11 RBC Hgb Hct MCV MCHC RDW Immature Gran % (Auto) Neut % (Auto) Lymph % (Auto) Lymph # (Auto) Abs Immat Gran (auto) Absolute Neuts (auto) APTT ABG pH ABG pCO2 ABG pO2 ABG HCO3 ABG O2 Saturation ABG O2 Content VBG pH VBG pCO2 VBG pO2 VBG HCO3 Oxyhemoglobin Total Hemoglobin Carbon Dioxide BUN Creatinine Estimated GFR Glucose POC Capillary Glucose 167 H 125 H 150 H Magnesium Ammonia NT-Pro-B Natriuret Pep Albumin 04/04/24 04/04/24 04/04/24 04:41 04:43 07:57 RBC 3.46 L Hgb 10.3 L Hct 35.7 L MCV 103.2 H MCHC 28.9 L RDW 14.6 H Immature Gran % (Auto) 0.8 H Neut % (Auto) 87.0 H Lymph % (Auto) 6.5 L Lymph # (Auto) 0.60 L Abs Immat Gran (auto) 0.07 H Absolute Neuts (auto) 8.1 H APTT ABG pH ABG pCO2 ABG pO2 ABG HCO3 ABG O2 Saturation ABG O2 Content VBG pH 7.174 L* VBG pCO2 83.8 H* VBG pO2 33.8 L VBG HCO3 30.2 H Oxyhemoglobin Total Hemoglobin Carbon Dioxide 31 H BUN 53 H Creatinine 3.30 H Estimated GFR 14 L Glucose 154 H POC Capillary Glucose 132 H Magnesium 2.4 H Ammonia < 9 L NT-Pro-B Natriuret Pep 3780 H Albumin 04/04/24 08:30 RBC Hgb Hct MCV MCHC RDW Immature Gran % (Auto) Neut % (Auto) Lymph % (Auto) Lymph # (Auto) Abs Immat Gran (auto) Absolute Neuts (auto) APTT ABG pH 7.264 L* ABG pCO2 61.1 H* ABG pO2 58.5 L ABG HCO3 27.1 H ABG O2 Saturation 85.8 L* ABG O2 Content 13.3 L VBG pH VBG pCO2 VBG pO2 VBG HCO3 Oxyhemoglobin 89.1 L Total Hemoglobin 10.6 L Carbon Dioxide BUN Creatinine Estimated GFR Glucose POC Capillary Glucose Magnesium Ammonia NT-Pro-B Natriuret Pep Albumin
[2024-04-04 12:05] LABS: Glucose Point of Care 153 mg/dl (65-105)
[2024-04-04 12:14] LABS: Alveolar/Arterial O2 Gradient 35.6 mmHg; Base Excess ABG 2.8 mEq/l (+/-2.0); Fractional Inspired Oxygen 24 %; HCO3 ABG 30.1 mEq/l (22.0-26.0); Oxygen Content ABG 13.1 %vol (16.0-22.0); Oxygen Saturation ABG 89.2 % (95.0-100.0); Oxyhemoglobin 91.9 % THb (90.0-100.0); PO2 ABG 62.5 mmHg (80.0-100.0); Total Hemoglobin 10.1 g/dL (12.0-18.0); pH ABG 7.308 (7.350-7.450)
[2024-04-04 12:15] LABS: Device BIPAP; Expiratory Pressure 6 cmH2O; Inspiratory Pressure 18 cmH2O; Modified Allen's Test Pass; PCO2 ABG 61.4 mmHg (35.0-45.0); Site Drawn LEFT RADIAL
[2024-04-04] MEDS: allopurinoL 100 MG TABLET 200 MG PO (17:00)
[2024-04-04 17:18] LABS: Glucose Point of Care 153 mg/dl (65-105)
[2024-04-04 17:47] LABS: Fractional Inspired Oxygen 24 %; HCO3 VBG 27.3 mEq/l (24.0-30.0); PCO2 VBG 59.2 mmHg (42.0-48.0); PO2 VBG 37.7 mmHg (35.0-45.0); pH VBG 7.281 (7.300-7.400)
[2024-04-04 17:48] LABS: Device NON-INVASIVE VENT; Non-Invasive Expiratory Pressure 8 CMH2O; Non-Invasive Inspiratory Pressure 20 CMH2O; Non-Invasive Vent Rate 20 /MIN
[2024-04-05] VITALS (17 sets, daily range): BP systolic 126–164; BP diastolic 54–70; PULSE 63–86; RESP 16–22; TEMP 35.9–36.6; O2SAT 92–100
[2024-04-05 00:36] LABS: Fractional Inspired Oxygen 24 %; HCO3 VBG 23.9 mEq/l (24.0-30.0); PCO2 VBG 49.4 mmHg (42.0-48.0); PO2 VBG 53.8 mmHg (35.0-45.0); pH VBG 7.302 (7.300-7.400)
[2024-04-05 00:37] LABS: Device NON-INVASIVE VENT
[2024-04-05 00:38] LABS: Non-Invasive Expiratory Pressure 8 CMH2O; Non-Invasive Inspiratory Pressure 20 CMH2O; Non-Invasive Vent Rate 22 /MIN
[2024-04-05 00:52] LABS: Glucose Point of Care 131 mg/dl (65-105)
[2024-04-05 05:19] LABS: Basophils Percent Auto 0.6 % (0.2-1.2); Eosinophils Absolute Auto 0.2 K/mm3 (0-0.3); Eosinophils Percent Auto 3.1 % (0-4.4); Hematocrit 30.7 % (37.0-47.0); Hemoglobin 9.2 g/dL (12.0-15.0); Immature Granulocyte Absolute 0.03 K/mm3 (0.00-0.031); Immature Granulocyte Percent A 0.4 % (0-0.5); Lymphocytes Absolute Auto 0.98 K/mm3 (0.9-3.2); Lymphocytes Percent Auto 13.9 % (18.3-44.2); Mean Corpuscular Hemoglobin 30.3 pg (26-34); Mean Platelet Volume 9.6 fl (7.4-10.4); Monocytes Absolute Auto 0.5 K/mm3 (0.1-0.6); Monocytes Percent Auto 6.4 % (2.6-8.5); Neutrophils Absolute Auto 5.4 K/mm3 (1.3-6.7); Neutrophils Percent Auto 75.6 % (45.5-73.1); Platelet Count Result 226 k/mm3 (150-375); Red Blood Count 3.04 M/mm3 (4.2-5.4); Red Cell Distribution Width 14.5 % (11.5-14.5); White Blood Count 7.1 K/mm3 (4.5-10.0)
[2024-04-05 05:47] LABS: Alanine Aminotransferase 9 U/L (6-35); Albumin Level 3.4 g/dL (3.5-5.1); Alkaline Phosphatase 81 U/L (38-126); Anion Gap 11 mmol/L (4-12); Aspartate Amino Transferase 16 U/L (14-36); Bilirubin,Total 0.5 mg/dL (0.2-1.3); Blood Urea Nitrogen 67 mg/dL (7-17); Calcium 8.9 mg/dL (8.4-10.2); Carbon Dioxide 27 mmol/L (22-30); Chloride 102 mmol/L (98-107); Estimated CRCL calculation 15 ml/min; Estimated Glomerular Filt Rate 10; Glucose 110 mg/dL (65-110); Potassium 4.7 mmol/L (3.4-5.0); Sodium 140 mmol/L (137-145)
[2024-04-05 06:25] LABS: Fractional Inspired Oxygen 24 %; HCO3 VBG 24.5 mEq/l (24.0-30.0); PCO2 VBG 42.2 mmHg (42.0-48.0); PO2 VBG 100.1 mmHg (35.0-45.0); pH VBG 7.381 (7.300-7.400)
--- NOTE | 2024-04-05 07:08 | P.PNIM_ITS ---
Progress Note: A&P Assessment and Plan (1) Atrial fibrillation with RVR: Code(s): I48.91 - Unspecified atrial fibrillation Status: Acute Assessment and Plan: New onset - corrected and stable - NS in 70/80's at this time. Cardiology consulted pending recommendations Heparin drip per protocol d/c'd Echo noted difficulty reading due to image quality. trend labs - check mag and K daily (2) Acute hypoxic respiratory failure: Code(s): J96.01 - Acute respiratory failure with hypoxia Status: Acute Assessment and Plan: #CTA negative for PE #Lasix x1 given to offset overload. continued 20 mg IV BID per Cardiology #Oxygen as needed to maintain above 90% --> currently on O2 at 4 liters per nasal canula Hx of DAMI - uses CPAP at , does not tolerate this hospitals, -->am VBG - pH 7.141, PCo2 83 --> started on Bipap -->repeat ABG's pH around 7.26 and pCO2 exceeding 60 mmHg. --> VBG this am pH-7.381, CO2 42.2, PO2 100.1, HCO3 24.5 -->continued with BiPAP in AVAPS mode. --> Pulmonolgy consulted - appreciate all recommendations * will need new CPAP machine since her one at home is broken (3) CHF (congestive heart failure): Code(s): I50.9 - Heart failure, unspecified Status: Acute Assessment and Plan: IV Lasix 20 b.i.d. - check BNP in AM -->Cardiology consulted #ECHO - difficult to read due to image quality -->Monitor kidney and respiratory function -->Continue cardiac medications (4) WILLIAN (acute kidney injury): Code(s): N17.9 - Acute kidney failure, unspecified Status: Acute Assessment and Plan: ##Creatinine unknown, no kidney disease listed --See's Dr raman for Chronic renal disease - reports its stage 3?? -->Due to diuresis held off on IV fluids -->Avoided nephrotoxic medications -BUN -->46, 53, 67 -creat --> 1.84, 3.30, 4.43 -->will restart low rate IV fluids, -->consult Nephrology for recommendation (5) Hypothyroidism: Code(s): E03.9 - Hypothyroidism, unspecified Status: Acute Assessment and Plan: Continue home Synthroid (6) Diabetes: Code(s): E11.9 - Type 2 diabetes mellitus without complications Status: Acute Assessment and Plan: Diabetic diet SSI and Lantus Patient states that she recently started on Ozempic and her A1c is about 7 now Started on gabapentin for neuropathy Plan Miscellaneous care. 1. Code status. Full 2. VTE prophylaxis. SCDs; Heparin gtt 3. Nutrition. Carb-controlled; heart healthy Time Spent With Patient Time with patient: Greater than 35 minutes (45 minutes) Subjective Date/time seen: 04/05/24 07:08 Interval history: 64yo F with a mhx signficant for CAD s/p PCI, CHFrEF, dyslipidemia, obesity, DAMI, Hypertension, DM2 found to have AFib with RVR and acute respiratory failure. 04/04/24- patient was found to be confused and more lethargic. VBG and labs ordered. Ph 7.141 pCO2 83. patient was placed on BiPap. Patient however would take it off. Repeat pH around 7.26 and pCO2 exceeding 60 mmHg. Pulmonology was consulted. She has improved cognitively. Patient was alert and complaining about her Bipap on reassessment. 04/05/24-Continues with BiPAP in AVAPS mode at night. ABG's/VBG's improved, renal function has declined. Consulted nephrology. patient does see Dr prieto for renal outpatient. Denies any distress today. Has been getting up today and ambulating to the rest room. Denies any palpitations today. Denies any active chest pain, shortness of breath or distress. Review of Systems Review of Systems: All systems reviewed & are unremarkable except as noted in HPI and below Constitutional: Constitutional: Reports as per HPI and Reports no additional constitutional complaints Eyes: Eyes: Reports as per HPI and Reports no additional eye complaints ENT: Reports system reviewed and no additional complaints, except as documented Cardiovascular: Cardiovascular: Reports as per HPI and Reports no additional cardiovascular complaints Respiratory: Respiratory: Reports as per HPI and Reports no additional respiratory complaints Gastrointestinal: Gastrointestinal: Reports as per HPI and Reports no additional gastrointestinal complaints Genitourinary: Genitourinary: Reports no additional female genitourinary complaints Musculoskeletal: Musculoskeletal: Reports no additional musculoskeletal complaints Integumentary/Breasts: Skin/Breast: Reports system reviewed and no additional complaints, except as docu Neurologic: Reports system reviewed and no additional complaints, except as documented Exam Narrative: General: well appearing, appears stated age. Obese HEENT: normocephalic, atraumatic. Mucous membranes moist. EOMI, PERRLA, bila teral sclera anicteric, no conjunctival injection. Neck supple without JVD, lymphadenopathy, or bruit. Respiratory: Diminished to ascultation bilaterally. No rales/rhonic/wheezes. Cardiovascular: Regular rate and rhythm, normal S1-S2 upon ascultation. No murmurs, rubs, or clicks. PMI is nondisplaced, capillary refill less than 3 second. Abdomen: Soft, round, no pulsatile masses, nondistended and nontender. No rebound, no guarding. No CVA tenderness, no hepatosplenomegaly. Bowel sounds present to all four quadrants. No high pitch or tinkling sounds, resonant to percussion. Extremities: No cyanosis, clubbing, or edema present. Pulses are palpable 2/2. Active ROM to all four extremities. Neuro: Alert and orientated x 4. PERRLA. Cranial nerves 2-12 intact without focal deficit. Skin: Warm, dry, and intact, without rash, erythema, or lesion. Psych: pleasant, cooperative, normal speech, normal affect, no hallucinations, no dysarthia Const: General: cooperative, comfortable, no acute distress, alert, awake and obese Nutritional Appearance: obese Orientation/consciousness: patient oriented x3 HENMT: Head: normal to inspection and normocephalic Ears: TM's normal bilaterally Eyes: General: appearance normal, both eyes and all related structures Pupils: Equal, round and reactive pupils present Neck: Neck: normal visual inspection, full ROM and supple Chest: Chest palpation & inspection: normal inspection of the chest Resp: Effort & Inspection: normal respiratory effort Auscultation: clear to auscultation bilaterally Cardio: Rate: regular rate Rhythm: abnormal rhythm Heart sounds: S1 normal heart sound present and S2 normal heart sound present GI: Inspection: normal to inspection and obesity Auscultation: normal bowel sounds Skin: General skin exam: normal color and no rashes or lesions noted Neuro: General: patient oriented x3 and gait normal Cranial nerves: Yes Equal, round and reactive pupils present Speech: normal speech Motor exam (neuro): 5/5 motor strength present throughout and Normal motor muscle tone present throughout Extrem: General: normal to inspection Psych: Mental Status: mental status grossly normal Affect: normal affect Objective Data Vital Signs Vital Signs: Vital Signs - 24 hr 04/04/24 08:00 04/04/24 08:00 04/04/24 08:45 Temperature Pulse Rate 78 Respiratory Rate 22 H Blood Pressure Pulse Oximetry 96 96 Oxygen Delivery BiPAP BiPAP 04/04/24 08:47 04/04/24 12:00 04/04/24 13:11 Temperature Pulse Rate 77 72 70 Respiratory Rate 21 H Blood Pressure Pulse Oximetry 98 Oxygen Delivery BiPAP 04/04/24 16:00 04/04/24 16:00 04/04/24 20:00 Temperature 98.2 F Pulse Rate 75 72 Respiratory Rate 20 Blood Pressure 108/59 L Pulse Oximetry 94 Oxygen Delivery Room Air 04/04/24 20:00 04/04/24 20:04 04/04/24 20:12 Temperature 98.4 F Pulse Rate 69 77 66 Respiratory Rate 20 20 Blood Pressure 145/62 H Pulse Oximetry 97 92 Oxygen Delivery BiPAP 04/04/24 20:14 04/05/24 00:00 04/05/24 00:28 Temperature Pulse Rate 66 68 63 Respiratory Rate 22 H Blood Pressure Pulse Oximetry 92 Oxygen Delivery BiPAP 04/05/24 03:09 04/05/24 04:00 04/05/24 04:42 Temperature 97.8 F Pulse Rate 86 78 72 Respiratory Rate 22 H 20 Blood Pressure 147/61 H Pulse Oximetry 94 100 Oxygen Delivery BiPAP Intake/Output Intake/Output: Intake & Output 04/02/24 04/03/24 04/04/24 04/05/24 23:59 23:59 23:59 23:59 Intake Total 250.0 1190.0 720 120 Output Total 1 301 0 Balance 249.0 889.0 720 120 Meds/Results Medications: Active Medications Generic Name Dose Route Start Last Admin Trade Name Freq PRN Reason Stop Dose Admin Acetaminophen 650 mg 04/03/24 10:34 04/03/24 11:54 Acetaminophen 325 Mg Tablet PO 650 mg Q4H PRN Administration Headache Hydrocodone Bitart/Acetaminophen 1 tab 04/03/24 02:27 04/03/24 02:47 Hydrocodone/Acetaminophen (*Crx) 7.5-325 Mg Tablet PO 1 tab Q6H PRN Administration Pain Rated 7-10 Albuterol/Ipratropium 3 ml 04/02/24 00:22 Ipratropium 0.5 Mg/Albuterol Sulfate 2.5 Mg Ampul.Neb 3 Ml INHALATION Q4HRT PRN shortness of breath/Wheezing Allopurinol 300 mg 04/03/24 09:00 04/04/24 08:47 Allopurinol 100 Mg Tablet PO 300 mg QAM PILO Administration Allopurinol 200 mg 04/03/24 18:00 04/04/24 17:00 Allopurinol 100 Mg Tablet PO 200 mg QPM PILO Administration Apixaban 5 mg 04/03/24 21:00 04/04/24 20:14 Apixaban 5 Mg Tablet PO 5 mg Q12HR PILO Administration Atorvastatin Calcium 80 mg 04/03/24 09:00 04/04/24 08:47 Atorvastatin 40 Mg Tablet PO 80 mg DAILY PILO Administration Buspirone HCl 5 mg 04/02/24 17:00 04/04/24 16:59 Buspirone Hcl 5 Mg Tablet PO 5 mg BID PILO Administration Ezetimibe 10 mg 04/03/24 09:00 04/04/24 08:46 Ezetimibe 10 Mg Tablet PO 10 mg DAILY PILO Administration Empagliflozin 10 mg 04/03/24 09:00 04/04/24 08:47 Empagliflozin 10 Mg Tablet PO 10 mg DAILY PILO Administration Escitalopram Oxalate 20 mg 04/03/24 09:00 04/04/24 08:46 Escitalopram Oxalate 10 Mg Tablet PO 20 mg DAILY PILO Administration Furosemide 20 mg 04/02/24 00:25 04/04/24 16:59 Furosemide Inj 40 Mg/4 Ml Vial IV PUSH 20 mg BID PILO Administration Gabapentin 300 mg 04/02/24 13:00 04/04/24 16:59 Gabapentin 300 Mg Capsule PO 300 mg TID PILO Administration Isosorbide Mononitrate 120 mg 04/03/24 09:00 04/04/24 08:47 Isosorbide Mononitrate 60 Mg Tab.Er.24h PO 120 mg DAILY PILO Administration Levothyroxine Sodium 100 mcg 04/03/24 06:30 04/04/24 06:07 Levothyroxine Sodium 100 Mcg Tablet PO 100 mcg DAILY@0630 PILO Administration Melatonin 5 mg 04/02/24 00:22 Melatonin 5 Mg Tablet PO HS PRN Insomnia Metoprolol Tartrate 12.5 mg 04/02/24 00:30 04/04/24 20:14 Metoprolol Tartrate 12.5 Mg Tablet PO 12.5 mg Q12HR PILO Administration Prochlorperazine Edisylate 10 mg 04/02/24 00:22 Prochlorperazine Edisylate 10 Mg/2 Ml Vial IV PUSH Q6H PRN Nausea And Vomiting Sacubitril/Valsartan 1 tab 04/02/24 21:00 04/04/24 20:14 Sacubitril/Valsartan 97-103 Mg Tablet PO 1 tab Q12HR PILO Administration Radiology Results: ITS Impressions Chest CTA 04/01/24 19:46 IMPRESSION: No CT evidence of acute pulmonary embolus. No acute process detected in the chest. Venous Doppler Study 04/01/24 19:59 IMPRESSION: Patent bilateral lower extremity veins. No evidence of deep venous thrombosis. Chest X-Ray 04/04/24 09:27 IMPRESSION: Mild pulmonary vascular congestion, without focal infiltrate or effusion. Labs Labs: Laboratory Results - last 24 hr 04/04/24 04/04/24 04/04/24 07:57 08:30 11:41 WBC RBC Hgb Hct MCV MCH MCHC RDW Plt Count MPV Immature Gran % (Auto) Neut % (Auto) Lymph % (Auto) Waldo % (Auto) Eos % (Auto) Baso % (Auto) Lymph # (Auto) Waldo # (Auto) Eos # (Auto) Baso # (Auto) Abs Immat Gran (auto) Absolute Neuts (auto) Absolute Nucleated RBC Nucleated RBC % Puncture Site Left radial ABG pH 7.264 L* ABG pCO2 61.1 H* ABG pO2 58.5 L ABG PO2/FiO2 Ratio 2.44 ABG HCO3 27.1 H ABG O2 Saturation 85.8 L* ABG O2 Content 13.3 L ABG Base Excess -0.7 VBG pH VBG pCO2 VBG pO2 VBG HCO3 A-a Gradient 39.9 Oxyhemoglobin 89.1 L Total Hemoglobin 10.6 L O2 Delivery Device Bipap O2 Liters/Min Not Reportable Vent Rate FiO2 24 Expiratory Pressure 8 Inspiratory Pressure 16 Sodium Potassium Chloride Carbon Dioxide Anion Gap BUN Creatinine Estim Creat Clear Calc Estimated GFR Glucose POC Capillary Glucose 132 H 153 H Calcium Total Bilirubin AST ALT Alkaline Phosphatase Total Protein Albumin 04/04/24 04/04/24 04/04/24 12:01 17:09 17:35 WBC RBC Hgb Hct MCV MCH MCHC RDW Plt Count MPV Immature Gran % (Auto) Neut % (Auto) Lymph % (Auto) Waldo % (Auto) Eos % (Auto) Baso % (Auto) Lymph # (Auto) Waldo # (Auto) Eos # (Auto) Baso # (Auto) Abs Immat Gran (auto) Absolute Neuts (auto) Absolute Nucleated RBC Nucleated RBC % Puncture Site Left radial ABG pH 7.308 L ABG pCO2 61.4 H* ABG pO2 62.5 L ABG PO2/FiO2 Ratio 2.60 ABG HCO3 30.1 H ABG O2 Saturation 89.2 L ABG O2 Content 13.1 L ABG Base Excess 2.8 VBG pH 7.281 L VBG pCO2 59.2 H VBG pO2 37.7 VBG HCO3 27.3 A-a Gradient 35.6 Oxyhemoglobin 91.9 Total Hemoglobin 10.1 L O2 Delivery Device Bipap Non-invasive vent O2 Liters/Min Not Reportable Not Reportable Vent Rate 20 FiO2 24 24 Expiratory Pressure 6 8 Inspiratory Pressure 18 20 Sodium Potassium Chloride Carbon Dioxide Anion Gap BUN Creatinine Estim Creat Clear Calc Estimated GFR Glucose POC Capillary Glucose 153 H Calcium Total Bilirubin AST ALT Alkaline Phosphatase Total Protein Albumin 04/04/24 04/05/24 04/05/24 20:18 00:32 04:36 WBC 7.1 RBC 3.04 L Hgb 9.2 L Hct 30.7 L MCV 101.0 H MCH 30.3 MCHC 30.0 L RDW 14.5 Plt Count 226 MPV 9.6 Immature Gran % (Auto) 0.4 Neut % (Auto) 75.6 H Lymph % (Auto) 13.9 L Waldo % (Auto) 6.4 Eos % (Auto) 3.1 Baso % (Auto) 0.6 Lymph # (Auto) 0.98 Waldo # (Auto) 0.5 Eos # (Auto) 0.2 Baso # (Auto) 0.0 Abs Immat Gran (auto) 0.03 Absolute Neuts (auto) 5.4 Absolute Nucleated RBC 0.000 Nucleated RBC % 0.0 Puncture Site ABG pH ABG pCO2 ABG pO2 ABG PO2/FiO2 Ratio ABG HCO3 ABG O2 Saturation ABG O2 Content ABG Base Excess VBG pH 7.302 VBG pCO2 49.4 H VBG pO2 53.8 H VBG HCO3 23.9 L A-a Gradient Oxyhemoglobin Total Hemoglobin O2 Delivery Device Non-invasive vent O2 Liters/Min Not Reportable Vent Rate 22 FiO2 24 Expiratory Pressure 8 Inspiratory Pressure 20 Sodium 140 Potassium 4.7 Chloride 102 Carbon Dioxide 27 Anion Gap 11 BUN 67 H D Creatinine 4.43 H Estim Creat Clear Calc 15 Estimated GFR 10 L Glucose 110 POC Capillary Glucose 131 H Calcium 8.9 Total Bilirubin 0.5 AST 16 ALT 9 Alkaline Phosphatase 81 Total Protein 7.0 Albumin 3.4 L 04/05/24 06:20 WBC RBC Hgb Hct MCV MCH MCHC RDW Plt Count MPV Immature Gran % (Auto) Neut % (Auto) Lymph % (Auto) Waldo % (Auto) Eos % (Auto) Baso % (Auto) Lymph # (Auto) Waldo # (Auto) Eos # (Auto) Baso # (Auto) Abs Immat Gran (auto) Absolute Neuts (auto) Absolute Nucleated RBC Nucleated RBC % Puncture Site ABG pH ABG pCO2 ABG pO2 ABG PO2/FiO2 Ratio ABG HCO3 ABG O2 Saturation ABG O2 Content ABG Base Excess VBG pH 7.381 VBG pCO2 42.2 VBG pO2 100.1 H VBG HCO3 24.5 A-a Gradient Oxyhemoglobin Total Hemoglobin O2 Delivery Device Bipap O2 Liters/Min Not Reportable Vent Rate FiO2 24 Expiratory Pressure Inspiratory Pressure Sodium Potassium Chloride Carbon Dioxide Anion Gap BUN Creatinine Estim Creat Clear Calc Estimated GFR Glucose POC Capillary Glucose Calcium Total Bilirubin AST ALT Alkaline Phosphatase Total Protein Albumin Quality VTE Prophylaxis VTE prophylaxis: mechanical ordered and pharmacologic ordered Hospitalist MIPS Advance Care Plan I have confirmed that the patient's Advanced Care Plan is present, code status is documented, or surrogate decision maker is listed in patient medical record.: Yes Medication Reconciliation I have utilized all available resources to obtain, update and review the patients current medications (includes all prescriptions, OTC, herbals, cannabis, and nutritional supplements).: Yes
[2024-04-05 08:04] LABS: Glucose Point of Care 87 mg/dl (65-105)
[2024-04-05] MEDS: METOPROLOL TARTRATE 12.5 MG TABLET PO ×2 (08:12→20:09)
[2024-04-05] MEDS: APIXABAN 5 MG TABLET PO ×2 (08:12→20:09)
[2024-04-05] MEDS: EZETIMIBE 10 MG TABLET PO (08:12)
[2024-04-05] MEDS: GABAPENTIN 300 MG CAPSULE PO ×3 (08:13→17:22)
[2024-04-05] MEDS: ESCITALOPRAM OXALATE 10 MG TABLET 20 MG PO (08:13)
[2024-04-05] MEDS: ISOSORBIDE MONONITRATE 60 MG TAB.ER.24H 120 MG PO (08:13)
[2024-04-05] MEDS: SACUBITRIL/VALSARTAN 97-103 MG TABLET 1 TAB PO (08:13)
[2024-04-05] MEDS: busPIRone HCL 5 MG TABLET PO ×2 (08:13→17:22)
[2024-04-05] MEDS: allopurinoL 100 MG TABLET 300 MG PO (08:13)
[2024-04-05] MEDS: EMPAGLIFLOZIN 10 MG TABLET PO (08:13)
[2024-04-05] MEDS: ATORVASTATIN 40 MG TABLET 80 MG PO (08:13)
[2024-04-05] MEDS: LEVOTHYROXINE SODIUM 100 MCG TABLET PO (08:14)
[2024-04-05] MEDS: FUROSEMIDE INJ 40 MG/4 ML VIAL 20 MG IV PUSH (08:17)
--- NOTE | 2024-04-05 09:26 | P.PNPL_ITS ---
Progress Note: A&P Assessment and Plan (1) Acute hypoxic respiratory failure: Code(s): J96.01 - Acute respiratory failure with hypoxia Status: Acute (2) Hypercapnic respiratory failure: Code(s): J96.92 - Respiratory failure, unspecified with hypercapnia Status: Acute Assessment and Plan: A 64-year-old female with morbid obesity and a history of sleep apnea, previously managed with CPAP therapy until a device malfunction approximately six weeks ago, presented with hypoxemia. She was diagnosed with atrial fibrillation with rapid ventricular response and has since received treatment, returning to normal sinus rhythm. Arterial blood gas analysis indicated acute respiratory acidosis, with a pH around 7.26 and pCO2 exceeding 60 mmHg. It is noteworthy that there was no elevation in chronic bicarbonate levels to suggest chronic hypercapnic respiratory failure. The acute respiratory acidosis is likely related to her congestive heart failure and atrial fibrillation. On physical examination, her lungs were clear with no wheezing. Adjustments were made to initial BiPAP settings and patient used BiPAP support last night. On today's exam she is fully awake with clear lungs. Laboratory testing showed significant correction of hypercapnia. Plan: Continue with BiPAP support at night and as needed during the day. Blood gases should be repeated before discharge. Additionally, explore options for replacing the malfunctioning CPAP machine prior to the patient's discharge. I will continue to monitor the patient alongside you. (3) CHF (congestive heart failure): Code(s): I50.9 - Heart failure, unspecified Status: Acute (4) Atrial fibrillation with RVR: Code(s): I48.91 - Unspecified atrial fibrillation Status: Acute (5) Acute on chronic systolic heart failure: Code(s): I50.23 - Acute on chronic systolic (congestive) heart failure Status: Acute Subjective Date/time seen: 04/05/24 09:26 Interval history: Patient has no new respiratory symptoms. She slept well on BiPAP support supplemental oxygen last night. Fully awake this a.m. about to get out of bed. Review of Systems Review of Systems: All systems reviewed & are unremarkable except as noted in HPI and below (HPI and below) Exam Narrative: GENERAL APPEARANCE: Well developed, well nourished, alert and cooperative, obese and appears to be in no acute distress while receiving a BiPAP support and supplemental oxygen SKIN: Inspection of the skin reveals no rashes, ulcerations or petechiae. HEENT: Sclerae anicteric and conjunctivae pink and moist. Extraocular movements were intact and pupils were equal, round, and reactive to light. The oral mucosa, hard and soft palate, tongue and posterior pharynx were normal. NECK: Supple. There was no thyroid enlargement, and no tenderness, or masses were felt. CHEST: Normal AP diameter and normal contour without any kyphoscoliosis. LUNGS: Auscultation of the lungs revealed normal breath sounds without any other adventitious sounds or rubs. CARDIAC: There was a regular rate and rhythm without any murmurs, gallops, rubs. ABDOMEN: Soft and nontender with normal bowel sounds. There was no organomegaly. LYMPH NODES: No lymphadenopathy was appreciated in the neck. EXTREMITIES: No cyanosis, clubbing or edema. NEUROLOGIC: Alert and oriented x 3. Normal affect. Objective Data Vital Signs Vital Signs: Vital Signs - 24 hr 04/04/24 12:00 04/04/24 13:11 04/04/24 16:00 Temperature Pulse Rate 72 70 75 Respiratory Rate 21 H Blood Pressure Pulse Oximetry 98 Oxygen Delivery BiPAP 04/04/24 16:00 04/04/24 20:00 04/04/24 20:00 Temperature 36.8 C Pulse Rate 72 69 Respiratory Rate 20 Blood Pressure 108/59 L Pulse Oximetry 94 Oxygen Delivery Room Air 04/04/24 20:04 04/04/24 20:12 04/04/24 20:14 Temperature 36.9 C Pulse Rate 77 66 66 Respiratory Rate 20 20 Blood Pressure 145/62 H Pulse Oximetry 97 92 Oxygen Delivery BiPAP 04/05/24 00:00 04/05/24 00:28 04/05/24 03:09 Temperature Pulse Rate 68 63 86 Respiratory Rate 22 H 22 H Blood Pressure Pulse Oximetry 92 94 Oxygen Delivery BiPAP BiPAP 04/05/24 04:00 04/05/24 04:42 04/05/24 08:00 Temperature 36.6 C Pulse Rate 78 72 75 Respiratory Rate 20 Blood Pressure 147/61 H Pulse Oximetry 100 Oxygen Delivery 04/05/24 08:00 04/05/24 08:12 Temperature 36.1 C L Pulse Rate 73 72 Respiratory Rate 20 Blood Pressure 142/62 H Pulse Oximetry 97 Oxygen Delivery Intake/Output Intake/Output: Intake & Output 02/25/25 02/26/25 02/27/25 02/28/25 23:59 23:59 23:59 23:59 Intake Total 250.0 1190.0 720 120 Output Total 1 301 0 Balance 249.0 889.0 720 120 Meds/Results Medications: Active Medications Generic Name Dose Route Start Last Admin Trade Name Freq PRN Reason Stop Dose Admin Acetaminophen 650 mg 04/03/24 10:34 04/03/24 11:54 Acetaminophen 325 Mg Tablet PO 650 mg Q4H PRN Administration Headache Hydrocodone Bitart/Acetaminophen 1 tab 04/03/24 02:27 04/03/24 02:47 Hydrocodone/Acetaminophen (*Crx) 7.5-325 Mg Tablet PO 1 tab Q6H PRN Administration Pain Rated 7-10 Albuterol/Ipratropium 3 ml 04/02/24 00:22 Ipratropium 0.5 Mg/Albuterol Sulfate 2.5 Mg Ampul.Neb 3 Ml INHALATION Q4HRT PRN shortness of breath/Wheezing Allopurinol 300 mg 04/03/24 09:00 04/05/24 08:13 Allopurinol 100 Mg Tablet PO 300 mg QAM PILO Administration Allopurinol 200 mg 04/03/24 18:00 04/04/24 17:00 Allopurinol 100 Mg Tablet PO 200 mg QPM PILO Administration Apixaban 5 mg 04/03/24 21:00 04/05/24 08:12 Apixaban 5 Mg Tablet PO 5 mg Q12HR PILO Administration Atorvastatin Calcium 80 mg 04/03/24 09:00 04/05/24 08:13 Atorvastatin 40 Mg Tablet PO 80 mg DAILY PILO Administration Buspirone HCl 5 mg 04/02/24 17:00 04/05/24 08:13 Buspirone Hcl 5 Mg Tablet PO 5 mg BID PILO Administration Ezetimibe 10 mg 04/03/24 09:00 04/05/24 08:12 Ezetimibe 10 Mg Tablet PO 10 mg DAILY PILO Administration Empagliflozin 10 mg 04/03/24 09:00 04/05/24 08:13 Empagliflozin 10 Mg Tablet PO 10 mg DAILY PILO Administration Escitalopram Oxalate 20 mg 04/03/24 09:00 04/05/24 08:13 Escitalopram Oxalate 10 Mg Tablet PO 20 mg DAILY PILO Administration Furosemide 20 mg 04/02/24 00:25 04/05/24 08:17 Furosemide Inj 40 Mg/4 Ml Vial IV PUSH 20 mg BID PILO Administration Gabapentin 300 mg 04/02/24 13:00 04/05/24 08:13 Gabapentin 300 Mg Capsule PO 300 mg TID PILO Administration Isosorbide Mononitrate 120 mg 04/03/24 09:00 04/05/24 08:13 Isosorbide Mononitrate 60 Mg Tab.Er.24h PO 120 mg DAILY PILO Administration Levothyroxine Sodium 100 mcg 04/03/24 06:30 04/05/24 08:14 Levothyroxine Sodium 100 Mcg Tablet PO 100 mcg DAILY@0630 PILO Administration Melatonin 5 mg 04/02/24 00:22 Melatonin 5 Mg Tablet PO HS PRN Insomnia Metoprolol Tartrate 12.5 mg 04/02/24 00:30 04/05/24 08:12 Metoprolol Tartrate 12.5 Mg Tablet PO 12.5 mg Q12HR PILO Administration Prochlorperazine Edisylate 10 mg 04/02/24 00:22 Prochlorperazine Edisylate 10 Mg/2 Ml Vial IV PUSH Q6H PRN Nausea And Vomiting Sacubitril/Valsartan 1 tab 04/02/24 21:00 04/05/24 08:13 Sacubitril/Valsartan 97-103 Mg Tablet PO 1 tab Q12HR PILO Administration Radiology Results: ITS Impressions Chest CTA 04/01/24 19:46 IMPRESSION: No CT evidence of acute pulmonary embolus. No acute process detected in the chest. Venous Doppler Study 04/01/24 19:59 IMPRESSION: Patent bilateral lower extremity veins. No evidence of deep venous thrombosis. Chest X-Ray 04/04/24 09:27 IMPRESSION: Mild pulmonary vascular congestion, without focal infiltrate or effusion. Labs Labs: Laboratory Results - last 24 hr 04/04/24 04/04/24 04/04/24 11:41 12:01 17:09 WBC RBC Hgb Hct MCV MCH MCHC RDW Plt Count MPV Immature Gran % (Auto) Neut % (Auto) Lymph % (Auto) [place] % (Auto) Eos % (Auto) Baso % (Auto) Lymph # (Auto) [place] # (Auto) Eos # (Auto) Baso # (Auto) Abs Immat Gran (auto) Absolute Neuts (auto) Absolute Nucleated RBC Nucleated RBC % Puncture Site Left radial ABG pH 7.308 L ABG pCO2 61.4 H* ABG pO2 62.5 L ABG PO2/FiO2 Ratio 2.60 ABG HCO3 30.1 H ABG O2 Saturation 89.2 L ABG O2 Content 13.1 L ABG Base Excess 2.8 VBG pH VBG pCO2 VBG pO2 VBG HCO3 A-a Gradient 35.6 Oxyhemoglobin 91.9 Total Hemoglobin 10.1 L O2 Delivery Device Bipap O2 Liters/Min Not Reportable Vent Rate FiO2 24 Expiratory Pressure 6 Inspiratory Pressure 18 Sodium Potassium Chloride Carbon Dioxide Anion Gap BUN Creatinine Estim Creat Clear Calc Estimated GFR Glucose POC Capillary Glucose 153 H 153 H Calcium Total Bilirubin AST ALT Alkaline Phosphatase Total Protein Albumin 04/04/24 04/04/24 04/05/24 17:35 20:18 00:32 WBC RBC Hgb Hct MCV MCH MCHC RDW Plt Count MPV Immature Gran % (Auto) Neut % (Auto) Lymph % (Auto) [place] % (Auto) Eos % (Auto) Baso % (Auto) Lymph # (Auto) [place] # (Auto) Eos # (Auto) Baso # (Auto) Abs Immat Gran (auto) Absolute Neuts (auto) Absolute Nucleated RBC Nucleated RBC % Puncture Site ABG pH ABG pCO2 ABG pO2 ABG PO2/FiO2 Ratio ABG HCO3 ABG O2 Saturation ABG O2 Content ABG Base Excess VBG pH 7.281 L 7.302 VBG pCO2 59.2 H 49.4 H VBG pO2 37.7 53.8 H VBG HCO3 27.3 23.9 L A-a Gradient Oxyhemoglobin Total Hemoglobin O2 Delivery Device Non-invasive vent Non-invasive vent O2 Liters/Min Not Reportable Not Reportable Vent Rate 20 22 FiO2 24 24 Expiratory Pressure 8 8 Inspiratory Pressure 20 20 Sodium Potassium Chloride Carbon Dioxide Anion Gap BUN Creatinine Estim Creat Clear Calc Estimated GFR Glucose POC Capillary Glucose 131 H Calcium Total Bilirubin AST ALT Alkaline Phosphatase Total Protein Albumin 04/05/24 04/05/24 04/05/24 04:36 06:20 07:56 WBC 7.1 RBC 3.04 L Hgb 9.2 L Hct 30.7 L MCV 101.0 H MCH 30.3 MCHC 30.0 L RDW 14.5 Plt Count 226 MPV 9.6 Immature Gran % (Auto) 0.4 Neut % (Auto) 75.6 H Lymph % (Auto) 13.9 L [place] % (Auto) 6.4 Eos % (Auto) 3.1 Baso % (Auto) 0.6 Lymph # (Auto) 0.98 [place] # (Auto) 0.5 Eos # (Auto) 0.2 Baso # (Auto) 0.0 Abs Immat Gran (auto) 0.03 Absolute Neuts (auto) 5.4 Absolute Nucleated RBC 0.000 Nucleated RBC % 0.0 Puncture Site ABG pH ABG pCO2 ABG pO2 ABG PO2/FiO2 Ratio ABG HCO3 ABG O2 Saturation ABG O2 Content ABG Base Excess VBG pH 7.381 VBG pCO2 42.2 VBG pO2 100.1 H VBG HCO3 24.5 A-a Gradient Oxyhemoglobin Total Hemoglobin O2 Delivery Device Bipap O2 Liters/Min Not Reportable Vent Rate FiO2 24 Expiratory Pressure Inspiratory Pressure Sodium 140 Potassium 4.7 Chloride 102 Carbon Dioxide 27 Anion Gap 11 BUN 67 H D Creatinine 4.43 H Estim Creat Clear Calc 15 Estimated GFR 10 L Glucose 110 POC Capillary Glucose 87 Calcium 8.9 Total Bilirubin 0.5 AST 16 ALT 9 Alkaline Phosphatase 81 Total Protein 7.0 Albumin 3.4 L
--- NOTE | 2024-04-05 10:27 | P.CONNP_ITS ---
Assessment and Plan Assessment and plan (1) WILLIAN (acute kidney injury): Code(s): N17.9 - Acute kidney failure, unspecified Status: Acute Assessment and Plan: * better than baseline on admission * decline noted from 04/02 - 04/03 * suspect multifactorial etiology: * contrast exposure (CTA chest on 04/01) * use of IV diuretics since admission * use of Entresto since admission * relative hypotension (?) -- 90s - 100s systolic BP for a few hours on 04/03... * other(?) * check urine studies, CPK, and renal ultrasound * hold lasix and Entresto for now * trial of IVFs * follow trend of repeat labs and UOP (2) Chronic kidney disease, stage IV (severe): Code(s): N18.4 - Chronic kidney disease, stage 4 (severe) Status: Chronic Assessment and Plan: * baseline creatinine runs ~ 1.8 - 2.3mg/dl for the last few years * however, was as low as 1.6mg/dl on outpatient labs on 03/21/24) * on admission, creatinine was 1.55mg/dl * presumably due to nephron mass (reported only 1 good kidney), diabetes, hypertension, vascular disease (CAD + hyperlipidemia) and known CHF with need for diuretic therapy * follows with Dr. Ortega for management of CKD (3) Acute hypoxic respiratory failure: Code(s): J96.01 - Acute respiratory failure with hypoxia Status: Acute Assessment and Plan: * hypoxia noted on presentation to ER * CTA chest negative for PE * CT of chest without evidence of fluid overload (on 04/01_ * however, initiated on IV lasix * although CXR (on 04/04) with mild pulmonary vascular congestion * continue supplemental oxygen as needed to maintain above 90% * possibly complicated by known history of DAMI * continued with BiPAP at night * Pulmonary following (4) Atrial fibrillation with RVR: Code(s): I48.91 - Unspecified atrial fibrillation Status: Acute Assessment and Plan: * new onset/finding in ER * in NSR at this time * continue rate control strategy * started on anticoagulation * Cardiology following (5) CHF (congestive heart failure): Code(s): I50.9 - Heart failure, unspecified Status: Acute Assessment and Plan: * known history * however, in spite of elevated BNP, seems compensated on admission * CT chest (04/01) without fluid overload on admission * however, recent CXR (04/04) with mild pulmonary vascular congestion * on IV lasix * IV Lasix 20 b.i.d. - check BNP in AM * recent Echo difficult to read due to image quality * Cardiology following (6) Diabetes: Code(s): E11.9 - Type 2 diabetes mellitus without complications Status: Chronic Assessment and Plan: * follow accu-cheks * glycemic control per hospitalist I will continue to follow the patient with you while she remains hospitalized and make further recommendations as deemed necessary. Thank you for allowing me to participate in the care of this patient. L History of Present Illness Reason for Consult Consult date: 04/05/24 Reason for consult: acute renal failure (on chronic kidney disease) Chief Complaint Chief complaint: New onset atrial fibrillation with RVR, Acute resp History of Present Illness Narrative: The patient is a 64-year-old female a past medical history as outlined below who presented to [facility] Emergency Room for further evaluation hypoxia. The patient was apparently seen at an urgent care center for complaints of palpitations and shortness of breath. It was noted on their assessment that she was quite hypoxic . Given the severity of her hypoxia, she was transported to the emergency room for further assessment. Prior to her visit to the urgent care center, patient also complained of increasing palpitations and worsening lower extremity edema. The palpitations were apparently present on rest as well as exertion and seem to be associated with mild shortness of breath as well she denied any other symptoms with regard to fevers, chills, cough, hemoptysis, dizziness, lightheadedness, nausea, vomiting, or chest. Workup and evaluation emergency room confirmed her hypoxia which did improve with administration of supplemental oxygen by nasal cannula. She was noted be tachycardic with heart rates in the 120 and EKG demonstrated atrial fibrillation with RVR. She was given a 1 time dose of IV metoprolol which converted her to normal sinus rhythm. Subsequent testing demonstrated a CBC without leukocytosis a chemistry consistent with her known history of chronic renal insufficiency Without any critical electrolyte abnormalities. Her troponins in the emergency room were negative and viral testing for influenza, RSV, and COVID were negative. She subsequent underwent a CTA of her chest which did not demonstrate evidence a pulmonary embolism or evidence of fluid overload, pulmonary vascular congestion, or pleural effusions. Bilateral venous Dopplers were also done which were without DVTs. However, given her hypoxia there was some concern for possible CHF. She is subsequently admitted hospital for further evaluation and therapy given her new onset atrial fibrillation and hypoxia. Since her admission to the hospital, she has been seen in consultation by both Cardiology as well as pulmonology. She has been initiated on IV diuretic therapy as well as anticoagulation regard to her suspected CHF and atrial fibrillation unfortunately, as noted by the trend of her labs since admission, her renal function/ creatinine has been slowly deteriorating. Renal consultation was requested due to her acute kidney injury/acute failure on top of her baseline chronic kidney disease. From my discussion with the patient, she is aware that she has chronic kidney disease and follows with Dr. Ortega for management of this issue. From review of the records that I was able to obtain, her baseline creatinine runs around 1.8-2.3 mg/dL for last for 5 years although it should be noted that on her last outpatient blood work, on March 21 of this year, her creatinine was 1.6 mg/dL. On admission, her creatinine was noted be 1.5 mg/dL but has deteriorated up to 4.43 mg/dL by labs done this morning. More concerning is the fact that she has been on IV diuretic therapy and has not made much urine as well. In spite of this fact, she has no critical electrolyte abnormalities and her volume status actually appears to be relatively stable this time. Currently, at the time my evaluation, she appears to be in no acute distress. Review of Systems 2 Review of Systems: As per HPI. [facility] Past Medical History Medical History (Updated 04/06/24 @ 08:30 by Tracy Bullock MD) History of diabetes mellitus History of chronic kidney disease History of CHF (congestive heart failure) History of coronary artery disease Family History Family History (Updated 04/02/24 @ 14:47 by Sarita Henriquez RN) Mother Uterus cancer Alzheimer dementia S/P CABG x 3 Father Lung cancer Sibling Transplanted kidney Myocardial infarct Cerebrovascular accident Brittle diabetes Diabetes mellitus Social History Social History (Updated 04/01/24 @ 17:31 by Sarita Valverde PA-C) Smoking status: Never smoker Alcohol intake: never Substance use: never Substance use type: does not use Do You Feel Safe in your Home?: Yes Lack of Transportation: No Lack of Food: Never True Current Housing: I Do Not Have Housing Concerned About Future Housing: No Difficulty Paying Gas/Electric Bills: No Difficulty Paying for Meds: No Currently Unemployed: No Education: Associate Degree Difficulty w/ Childcare or Family Care: No Spiritual care concerns: No Meds Home Medications and Allergies Home Medications ?Medication ?Instructions ?Recorded ?Confirmed ?Type albuterol sulfate 90 mcg/actuation 2 puff inhalation PRN 04/02/24 04/02/24 History aerosol inhaler allopurinol 100 mg tablet See Rx Instructions PO .COMPLEX 04/02/24 04/02/24 History atorvastatin 80 mg tablet 80 mg PO DAILY 04/02/24 04/02/24 History buspirone 5 mg tablet 5 mg PO BID 04/02/24 04/02/24 History clopidogrel 75 mg tablet 75 mg PO DAILY 04/02/24 04/02/24 History empagliflozin 10 mg tablet 10 mg PO DAILY 04/02/24 04/02/24 History (Jardiance) eplerenone 25 mg tablet 25 mg PO DAILY 04/02/24 04/02/24 History escitalopram oxalate 20 mg tablet 20 mg PO DAILY 04/02/24 04/02/24 History ezetimibe 10 mg tablet 10 mg PO DAILY 04/02/24 04/02/24 History insulin lispro 100 unit/mL 1 sliding scale dose subcut ACHS 04/02/24 04/02/24 History subcutaneous pen (Humalog KwikPen (U-100) Insulin) isosorbide mononitrate 120 mg 120 mg PO DAILY 04/02/24 04/02/24 History tablet,extended release 24 hr levothyroxine 100 mcg tablet 100 mcg PO DAILY 04/02/24 04/02/24 History metoprolol succinate 25 mg 25 mg PO DAILY 04/02/24 04/02/24 History tablet,extended release 24 hr sacubitril 97 mg-valsartan 103 mg 1 tablet PO BID 04/02/24 04/02/24 History tablet (Entresto) semaglutide 0.25 mg or 0.5 mg (2 0.25 mg subcut WEEKLY 04/02/24 04/02/24 History mg/3 mL) subcutaneous pen injector (Ozempic) torsemide 10 mg tablet See Rx Instructions PO .COMPLEX 04/02/24 04/02/24 History Allergies Allergy/AdvReac Type Severity Reaction Status Date / Time Penicillins Allergy Severe Hives Verified 04/01/24 17:28 Vital Signs Vital Signs Temp Pulse Resp BP Pulse Ox O2 Del Method O2 Flow Rate 04/05/24 09:39 97 Nasal Cannula 2 04/05/24 08:12 72 04/05/24 08:00 77 04/05/24 08:00 96.9 F L 73 20 142/62 H 97 04/05/24 08:00 75 04/05/24 04:42 97.8 F 72 20 147/61 H 100 04/05/24 04:00 78 04/05/24 03:09 86 22 H 94 BiPAP 04/05/24 00:28 63 22 H 92 BiPAP 04/05/24 00:00 68 04/04/24 20:14 66 04/04/24 20:12 98.4 F 66 20 145/62 H 92 04/04/24 20:04 77 20 97 BiPAP 04/04/24 20:00 69 04/04/24 20:00 Room Air 04/04/24 16:00 98.2 F 72 20 108/59 L 94 04/04/24 16:00 75 04/04/24 13:11 70 21 H 98 BiPAP Exam 2 Narrative: GENERAL APPEARANCE: well developed well nourished female in no acute distress HEENT: normocephalic, atraumatic, normal conjunctiva and sclera, nares patient NECK: no lymphadenopathy, thyromegaly, or JVD MOUTH: normal lips, teeth, and gums CARDIOVASCULAR: RRR, normal S1 and S2, no rub detected RESPIRATORY: decreased breath sounds at bases ABDOMEN: obese but soft, nontender, nondistended, positive bowel sounds present EXTREMITIES: no evidence of cyanosis, clubbing, trace edema NEUROLOGICAL: alert and oriented x 3; CN II - XII intact bilaterally; no focal deficits noted Results Lab Results 04/06/24 04:42 04/06/24 04:42 Lab results: Most recent lab results ABG pH 7.308 (7.350-7.450) L 04/04/24 12:01 ABG pCO2 61.4 mmHg (35.0-45.0) H* 04/04/24 12:01 ABG pO2 62.5 mmHg (80.0-100.0) L 04/04/24 12:01 ABG HCO3 30.1 mEq/l (22.0-26.0) H 04/04/24 12:01 ABG O2 Saturation 89.2 % (95.0-100.0) L 04/04/24 12:01 Calcium 8.9 mg/dL (8.4-10.2) 04/05/24 04:36 Magnesium 2.4 mg/dL (1.6-2.3) H 04/04/24 04:41
[2024-04-05 11:38] LABS: Glucose Point of Care 115 mg/dl (65-105)
[2024-04-05] MEDS: SODIUM CHLORIDE 0.9% IV 1,000 ML 75 ML IV CONT (12:43)
[2024-04-05 14:46] LABS: Add Urine Microscopic? YES; Appearance Urine Cloudy (Clear); Bacteria Urine 4+ /hpf; Bilirubin Urine Negative (Negative); Blood Urine Negative (Negative); Color Urine Yellow (Yellow); Glucose Urine UA 1+ mg/dL (Negative); Ketones Urine Negative (Negative); Leukocyte Esterase Ur 2+ LEU/UL (Negative); Nitrate Urine Negative (Negative); Protein Urine 1+ mg/dL (Negative); RBC Urine 0-2 /hpf (0-2); Specific Grav Ur 1.013 (1.001-1.035); Squamous Epithelial Cell Urine Many /hpf (Few); Urobilinogen Urine 0.2 mg/dL (<2.0); WBC Urine 21-50 /hpf (0-3)
[2024-04-05 15:19] LABS: Creatinine Urine 145.8 mg/dL; Sodium Urine Random 21 meq/L; Total Protein Urine Random 30 mg/dL; Ur Ttl Prot Creatinine Ratio 0.21 mg/mg (0-0.20); Urea Random Urine 374 MG/DL
[2024-04-05 15:40] LABS: Eosinophil Urine None Seen % (None Seen); Urine Eos QC 2nd Tech Confirmed
[2024-04-05 17:02] LABS: Glucose Point of Care 117 mg/dl (65-105)
[2024-04-05] MEDS: allopurinoL 100 MG TABLET 200 MG PO (17:22)
--- NOTE | 2024-04-05 17:27 | PC.NURSE ---
On 04/05/24, the student, Noy Harrington, provided care and [facility]. I have reviewed the student's documentation and agree with the findings.
[2024-04-05 22:47] LABS: Glucose Point of Care 153 mg/dl (65-105)
[2024-04-06] VITALS (15 sets, daily range): BP systolic 147–155; BP diastolic 51–64; PULSE 64–80; RESP 16–23; TEMP 36.3–36.9; O2SAT 92–100
[2024-04-06 05:34] LABS: Basophils Absolute Auto 0.1 K/mm3 (0.0-0.1); Basophils Percent Auto 0.6 % (0.2-1.2); Eosinophils Absolute Auto 0.4 K/mm3 (0-0.3); Eosinophils Percent Auto 4.5 % (0-4.4); Hematocrit 30.3 % (37.0-47.0); Hemoglobin 9.1 g/dL (12.0-15.0); Immature Granulocyte Absolute 0.04 K/mm3 (0.00-0.031); Immature Granulocyte Percent A 0.5 % (0-0.5); Lymphocytes Absolute Auto 1.06 K/mm3 (0.9-3.2); Lymphocytes Percent Auto 12.7 % (18.3-44.2); Mean Corpuscular Hemoglobin 29.8 pg (26-34); Mean Corpuscular Volume 99.3 fl (80-100); Mean Platelet Volume 9.6 fl (7.4-10.4); Monocytes Absolute Auto 0.6 K/mm3 (0.1-0.6); Monocytes Percent Auto 7.4 % (2.6-8.5); Neutrophils Absolute Auto 6.2 K/mm3 (1.3-6.7); Neutrophils Percent Auto 74.3 % (45.5-73.1); Platelet Count Result 240 k/mm3 (150-375); Red Blood Count 3.05 M/mm3 (4.2-5.4); Red Cell Distribution Width 14.3 % (11.5-14.5); White Blood Count 8.4 K/mm3 (4.5-10.0)
[2024-04-06 05:53] LABS: Alanine Aminotransferase 9 U/L (6-35); Albumin Level 3.2 g/dL (3.5-5.1); Alkaline Phosphatase 83 U/L (38-126); Anion Gap 7 mmol/L (4-12); Aspartate Amino Transferase 17 U/L (14-36); Bilirubin,Total 0.4 mg/dL (0.2-1.3); Blood Urea Nitrogen 68 mg/dL (7-17); Calcium 8.6 mg/dL (8.4-10.2); Carbon Dioxide 29 mmol/L (22-30); Chloride 105 mmol/L (98-107); Estimated CRCL calculation 19 ml/min; Estimated Glomerular Filt Rate 13; Glucose 103 mg/dL (65-110); Potassium 4.8 mmol/L (3.4-5.0); Sodium 141 mmol/L (137-145)
[2024-04-06] MEDS: SODIUM CHLORIDE 0.9% IV 1,000 ML 75 ML IV CONT (06:25)
[2024-04-06] MEDS: LEVOTHYROXINE SODIUM 100 MCG TABLET PO (06:25)
[2024-04-06 06:29] LABS: Hepatitis B Surface Antigen Negative (Negative)
[2024-04-06 06:46] LABS: Hepatitis B Surface Anti Res Negative
[2024-04-06 06:55] LABS: Creatine Kinase 53 U/L (30-135)
[2024-04-06 08:04] LABS: Glucose Point of Care 102 mg/dl (65-105)
[2024-04-06] MEDS: allopurinoL 100 MG TABLET 300 MG PO (09:42)
[2024-04-06] MEDS: APIXABAN 5 MG TABLET PO ×2 (09:42→21:33)
[2024-04-06] MEDS: METOPROLOL TARTRATE 12.5 MG TABLET PO ×2 (09:42→21:33)
[2024-04-06] MEDS: ESCITALOPRAM OXALATE 10 MG TABLET 20 MG PO (09:42)
[2024-04-06] MEDS: GABAPENTIN 300 MG CAPSULE PO ×2 (09:42→18:46)
[2024-04-06] MEDS: ATORVASTATIN 40 MG TABLET 80 MG PO (09:42)
[2024-04-06] MEDS: busPIRone HCL 5 MG TABLET PO ×2 (09:43→18:46)
[2024-04-06] MEDS: EMPAGLIFLOZIN 10 MG TABLET PO (09:43)
[2024-04-06] MEDS: EZETIMIBE 10 MG TABLET PO (09:43)
[2024-04-06] MEDS: ISOSORBIDE MONONITRATE 60 MG TAB.ER.24H 120 MG PO (09:48)
[2024-04-06] MEDS: ACETAMINOPHEN 325 MG TABLET 650 MG PO (09:54)
[2024-04-06 10:29] LABS: Alveolar/Arterial O2 Gradient 60.2 mmHg; Base Excess ABG -1.3 mEq/l (+/-2.0); Fractional Inspired Oxygen 32 %; HCO3 ABG 28.3 mEq/l (22.0-26.0); Oxygen Content ABG 13.4 %vol (16.0-22.0); Oxygen Saturation ABG 91.1 % (95.0-100.0); Oxyhemoglobin 92.1 % THb (90.0-100.0); PO2 ABG 76.5 mmHg (80.0-100.0); PO2 FiO2 Ratio Arterial Blood 2.39 %; Total Hemoglobin 10.3 g/dL (12.0-18.0)
[2024-04-06 10:38] LABS: Device NASAL CANNULA; Modified Allen's Test Pass; PCO2 ABG 78.2 mmHg (35.0-45.0); Site Drawn LEFT RADIAL; pH ABG 7.177 (7.350-7.450)
--- NOTE | 2024-04-06 10:43 | P.PNIM_ITS ---
Progress Note: A&P Assessment and Plan (1) Atrial fibrillation with RVR: Code(s): I48.91 - Unspecified atrial fibrillation Status: Acute Assessment and Plan: * continue eliquis and metoprolol * Cardiology following * Echo shown LVEF 40-45% (2) Acute hypoxic respiratory failure: Code(s): J96.01 - Acute respiratory failure with hypoxia Status: Acute Assessment and Plan: * CTA negative for PE * Pulmonology consulted * ABG today showing pH 7.177, pCO2 78.2, pO2 76.5, Bicarb 28.3. Patient was placed on continuous bipap with follow up ABG showing 7.254, PCO2 61.8, pO2 69.9, bicarb 26.2 * CXR showing congestive heart failure with cardiomegaly, pulmonary vascular c ongestion and mild pulmonary edema in the lower lung zones * Hx of DAMI wears Cpap at bedtime however her unit is not working at home. ??? considering her hypercapnia she would benefit from Bipap in AVAPS instead of Cpap. * TTE shown LVEF of 40-45% (3) CHF (congestive heart failure): Code(s): I50.9 - Heart failure, unspecified Status: Acute Assessment and Plan: * Echo shown LVEF of 40-45% per Cardiology notation * Continue Jardiance and Metoprolol * Entresto and Lasix on hold * CXR showing congestive heart failure with cardiomegaly, pulmonary vascular congestion and mild pulmonary edema in the lower lung zones (4) WILLIAN (acute kidney injury): Code(s): N17.9 - Acute kidney failure, unspecified Status: Acute Assessment and Plan: * Creatinine 3.46 today, EGF 13 * Lasix and Entresto on hold * Avoid nephrotoxic medication * Nephrology following * Baseline creatinine 1.80-2.30 * Continue to trend (5) Hypothyroidism: Code(s): E03.9 - Hypothyroidism, unspecified Status: Acute Assessment and Plan: * Continue synthroid (6) Diabetes: Code(s): E11.9 - Type 2 diabetes mellitus without complications Status: Chronic Assessment and Plan: * Blood sugars ranging 102-153 * Will obtain Hgb A1C * Accu checks AC/HS * High dose SSI ordered * hypoglycemic protocol in place * Diabetic diet ordered Plan Miscellaneous care. 1. Code status. Full 2. VTE prophylaxis. SCDs; Heparin gtt 3. Nutrition. Carb-controlled; heart healthy Time Spent With Patient Time with patient: Greater than 35 minutes Subjective Date/time seen: 04/06/24 10:43 Interval history: Interval history: This is a 64-year-old female with a significant past medical history of coronary artery disease status post PCI, congestive heart failure with reduced ejection fraction, dyslipidemia, obesity, DAMI, hypertension, type 2 diabetes mellitus who presented to the hospital with palpitations and shortness of breath. She was found to have new onset AFib RVR and heparin infusion was initiated however she was transition to Eliquis 5 mg p.o. b.i.d. and metoprolol 12.5 mg p.o. b.i.d. She also had Acute hypoxic and hypercapnic respiratory failure requiring Bipap/AVAPS. Workup in the hospital included a chest CTA which was negative for PE. Venous Doppler study which was negative for DVT. Chest x-ray showing mild pulmonary vascular congestion without focal infiltrate or effusion. Renal ultrasound showing normal right kidney, severe atrophy of the left kidney. Initial labs showed a normal white blood cell count of 8.8, hemoglobin 10.8, creatinine 1.55, EGFR 33, blood sugar 52 with a repeat of 116, troponin negative x2, proBNP 2450. Respiratory panel was negative for influenza a and B, RSV, COVID. EKG showed AFib with RVR with a rate of 117, QTC 550, left bundle branch block. Repeat EKG showed sinus rhythm with first-degree AV block with a left bundle branch block with a rate of 88, QTC 542. Echocardiogram obtained and showed depressed LV EF of 40-45%. Patient was initially placed in IMU due to hypercapnia on her ABG requiring continuous BiPAP and AVAPS mode. Pulmonology was also consulted and following. Subjective: ABG this morning showed a pH of 7.177, pCO2 78.2, PO2 76.5, bicarb 28.3. She was started on continuous BiPAP this morning. It is unknown if she wore BiPAP overnight. Discussed with bedside nurse to involve pulmonology. Labs and imaging reviewed. Review of Systems Review of Systems: All systems reviewed & are unremarkable except as noted in HPI and below Exam Narrative: General: In no acute distress, well nourished Head: atraumatic, no encephalopathy Eyes: EOMI, PERRLA, sclera clear ENT: moist mucous membranes, nasal passages clear Neck: supple, no JVD, no adenopathy, trachea midline Cardiac: Normal S1 and S2. No murmur, gallops or friction rubs, peripheral pulses intact. Respiratory: Diminished breath sounds, no adventitious lung sounds, currently on Bipap 20/8 with back up rate of 22 and 35% fio2 Gastrointestinal: soft, non-distended, non-tender, normoactive bowel sounds. : voiding without difficulty. Extremities: moves all extremities well, no edema Skin: clean, dry, intact. No wounds or lesions. Neuro:Alert to voice and then drifts back to sleep, cranial nerves intact, no neuro deficits. Psych:unable to assess due to mental status Objective Data Vital Signs Vital Signs: Vital Signs - 24 hr 04/05/24 11:52 04/05/24 12:00 04/05/24 13:32 Temperature 96.7 F L Pulse Rate 70 66 70 Respiratory Rate 16 Blood Pressure 126/54 L Pulse Oximetry 97 Oxygen Delivery Oxygen Flow Rate 04/05/24 13:49 04/05/24 14:56 04/05/24 17:10 Temperature 96.7 F L Pulse Rate 70 75 80 Respiratory Rate 16 Blood Pressure 126/54 L Pulse Oximetry 97 Oxygen Delivery Oxygen Flow Rate 04/05/24 20:00 04/05/24 20:00 04/05/24 20:09 Temperature Pulse Rate 80 80 Respiratory Rate Blood Pressure Pulse Oximetry 97 Oxygen Delivery Nasal Cannula Oxygen Flow Rate 2 04/05/24 20:21 04/06/24 00:00 04/06/24 04:00 Temperature 97.6 F Pulse Rate 82 74 79 Respiratory Rate 16 Blood Pressure 164/70 H Pulse Oximetry 97 Oxygen Delivery Oxygen Flow Rate 04/06/24 05:01 04/06/24 09:40 04/06/24 09:42 Temperature 97.9 F 98.4 F Pulse Rate 80 78 70 Respiratory Rate 20 16 Blood Pressure 155/51 H 147/61 H Pulse Oximetry 92 96 Oxygen Delivery Oxygen Flow Rate Intake/Output Intake/Output: Intake & Output 04/03/24 04/04/24 04/05/24 04/06/24 23:59 23:59 23:59 23:59 Intake Total 1190.0 970 500 1961 Output Total 301 0 500 Balance 889.0 538 991 4622 Meds/Results Medications: Active Medications Generic Name Dose Route Start Last Admin Trade Name Gilbertq PRN Reason Stop Dose Admin Acetaminophen 650 mg 04/03/24 10:34 04/06/24 09:54 Acetaminophen 325 Mg Tablet PO 650 mg Q4H PRN Administration Headache Hydrocodone Bitart/Acetaminophen 1 tab 04/03/24 02:27 04/03/24 02:47 Hydrocodone/Acetaminophen (*Crx) 7.5-325 Mg Tablet PO 1 tab Q6H PRN Administration Pain Rated 7-10 Albuterol/Ipratropium 3 ml 04/02/24 00:22 Ipratropium 0.5 Mg/Albuterol Sulfate 2.5 Mg Ampul.Neb 3 Ml INHALATION Q4HRT PRN shortness of breath/Wheezing Allopurinol 300 mg 04/03/24 09:00 04/06/24 09:42 Allopurinol 100 Mg Tablet PO 300 mg QAM PILO Administration Allopurinol 200 mg 04/03/24 18:00 04/05/24 17:22 Allopurinol 100 Mg Tablet PO 200 mg QPM PILO Administration Apixaban 5 mg 04/03/24 21:00 04/06/24 09:42 Apixaban 5 Mg Tablet PO 5 mg Q12HR PILO Administration Atorvastatin Calcium 80 mg 04/03/24 09:00 04/06/24 09:42 Atorvastatin 40 Mg Tablet PO 80 mg DAILY PILO Administration Buspirone HCl 5 mg 04/02/24 17:00 04/06/24 09:43 Buspirone Hcl 5 Mg Tablet PO 5 mg BID PILO Administration Ezetimibe 10 mg 04/03/24 09:00 04/06/24 09:43 Ezetimibe 10 Mg Tablet PO 10 mg DAILY PILO Administration Empagliflozin 10 mg 04/03/24 09:00 04/06/24 09:43 Empagliflozin 10 Mg Tablet PO 10 mg DAILY PILO Administration Escitalopram Oxalate 20 mg 04/03/24 09:00 04/06/24 09:42 Escitalopram Oxalate 10 Mg Tablet PO 20 mg DAILY PILO Administration Furosemide 20 mg 04/02/24 00:25 04/05/24 08:17 Furosemide Inj 40 Mg/4 Ml Vial IV PUSH 20 mg BID PILO Administration Gabapentin 300 mg 04/02/24 13:00 04/06/24 09:42 Gabapentin 300 Mg Capsule PO 300 mg TID PILO Administration Sodium Chloride 1,000 mls @ 75 mls/hr 04/05/24 10:55 04/06/24 06:25 Normal Saline Iv IV CONT 75 mls/hr .[id number] PILO Administration Isosorbide Mononitrate 120 mg 04/03/24 09:00 04/06/24 09:48 Isosorbide Mononitrate 60 Mg Tab.Er.24h PO 120 mg DAILY PILO Administration Levothyroxine Sodium 100 mcg 04/03/24 06:30 04/06/24 06:25 Levothyroxine Sodium 100 Mcg Tablet PO 100 mcg DAILY@0630 PILO Administration Melatonin 5 mg 04/02/24 00:22 Melatonin 5 Mg Tablet PO HS PRN Insomnia Metoprolol Tartrate 12.5 mg 04/02/24 00:30 04/06/24 09:42 Metoprolol Tartrate 12.5 Mg Tablet PO 12.5 mg Q12HR PILO Administration Prochlorperazine Edisylate 10 mg 04/02/24 00:22 Prochlorperazine Edisylate 10 Mg/2 Ml Vial IV PUSH Q6H PRN Nausea And Vomiting Sacubitril/Valsartan 1 tab 04/02/24 21:00 04/05/24 08:13 Sacubitril/Valsartan 97-103 Mg Tablet PO 1 tab Q12HR PILO Administration Radiology Results: ITS Impressions Chest CTA 04/01/24 19:46 IMPRESSION: No CT evidence of acute pulmonary embolus. No acute process detected in the chest. Venous Doppler Study 04/01/24 19:59 IMPRESSION: Patent bilateral lower extremity veins. No evidence of deep venous thrombosis. Chest X-Ray 04/04/24 09:27 IMPRESSION: Mild pulmonary vascular congestion, without focal infiltrate or effusion. Renal Ultrasound 04/05/24 14:58 IMPRESSION: 1. Normal right kidney. 2. Severe atrophy of left kidney. Labs Labs: Laboratory Results - last 24 hr 04/05/24 04/05/24 04/05/24 11:35 14:24 14:25 WBC RBC Hgb Hct MCV MCH MCHC RDW Plt Count MPV Immature Gran % (Auto) Neut % (Auto) Lymph % (Auto) [place] % (Auto) Eos % (Auto) Baso % (Auto) Lymph # (Auto) [place] # (Auto) Eos # (Auto) Baso # (Auto) Abs Immat Gran (auto) Absolute Neuts (auto) Absolute Nucleated RBC Nucleated RBC % Puncture Site ABG pH ABG pCO2 ABG pO2 ABG PO2/FiO2 Ratio ABG HCO3 ABG O2 Saturation ABG O2 Content ABG Base Excess A-a Gradient Oxyhemoglobin Total Hemoglobin O2 Delivery Device O2 Liters/Min FiO2 Sodium Potassium Chloride Carbon Dioxide Anion Gap BUN Creatinine Estim Creat Clear Calc Estimated GFR Glucose POC Capillary Glucose 115 H Calcium Total Bilirubin AST ALT Alkaline Phosphatase Total Creatine Kinase Total Protein Albumin Urine Color Yellow Urine Appearance Cloudy H Urine pH 5.0 Ur Specific [place] 1.013 Urine Protein 1+ H Urine Glucose (UA) 1+ H Urine Ketones Negative Ur Blood (Man) Negative Urine Nitrate Negative Urine Bilirubin Negative Urine Urobilinogen 0.2 Leukocyte Esterase Rfl 2+ H Urine RBC 0-2 Urine WBC 21-50 H Ur Squamous Epith Cells Many H Urine Bacteria 4+ H Urine Casts 3-5 Urine Eosinophils None seen U Random Total Protein 30 Ur Random Sodium Ur Random Urea Urine Creatinine Protein/Creat Ratio 2 Hep Bs Antigen Hep Bs Antibody 04/05/24 04/05/24 04/05/24 14:25 14:25 16:57 WBC RBC Hgb Hct MCV MCH MCHC RDW Plt Count MPV Immature Gran % (Auto) Neut % (Auto) Lymph % (Auto) [place] % (Auto) Eos % (Auto) Baso % (Auto) Lymph # (Auto) [place] # (Auto) Eos # (Auto) Baso # (Auto) Abs Immat Gran (auto) Absolute Neuts (auto) Absolute Nucleated RBC Nucleated RBC % Puncture Site ABG pH ABG pCO2 ABG pO2 ABG PO2/FiO2 Ratio ABG HCO3 ABG O2 Saturation ABG O2 Content ABG Base Excess A-a Gradient Oxyhemoglobin Total Hemoglobin O2 Delivery Device O2 Liters/Min FiO2 Sodium Potassium Chloride Carbon Dioxide Anion Gap BUN Creatinine Estim Creat Clear Calc Estimated GFR Glucose POC Capillary Glucose 117 H Calcium Total Bilirubin AST ALT Alkaline Phosphatase Total Creatine Kinase Total Protein Albumin Urine Color Urine Appearance Urine pH Ur Specific [place] Urine Protein Urine Glucose (UA) Urine Ketones Ur Blood (Man) Urine Nitrate Urine Bilirubin Urine Urobilinogen Leukocyte Esterase Rfl Urine RBC Urine WBC Ur Squamous Epith Cells Urine Bacteria Urine Casts Urine Eosinophils U Random Total Protein 30 Ur Random Sodium 21 Ur Random Urea 374 Urine Creatinine 145.8 Cancelled Protein/Creat Ratio 2 0.21 H Hep Bs Antigen Hep Bs Antibody 04/05/24 04/06/24 04/06/24 20:19 04:42 08:01 WBC 8.4 RBC 3.05 L Hgb 9.1 L Hct 30.3 L MCV 99.3 MCH 29.8 MCHC 30.0 L RDW 14.3 Plt Count 240 MPV 9.6 Immature Gran % (Auto) 0.5 Neut % (Auto) 74.3 H Lymph % (Auto) 12.7 L [place] % (Auto) 7.4 Eos % (Auto) 4.5 H Baso % (Auto) 0.6 Lymph # (Auto) 1.06 [place] # (Auto) 0.6 Eos # (Auto) 0.4 H Baso # (Auto) 0.1 Abs Immat Gran (auto) 0.04 H Absolute Neuts (auto) 6.2 Absolute Nucleated RBC 0.000 Nucleated RBC % 0.0 Puncture Site ABG pH ABG pCO2 ABG pO2 ABG PO2/FiO2 Ratio ABG HCO3 ABG O2 Saturation ABG O2 Content ABG Base Excess A-a Gradient Oxyhemoglobin Total Hemoglobin O2 Delivery Device O2 Liters/Min FiO2 Sodium 141 Potassium 4.8 Chloride 105 Carbon Dioxide 29 Anion Gap 7 BUN 68 H Creatinine 3.46 H Estim Creat Clear Calc 19 Estimated GFR 13 L Glucose 103 POC Capillary Glucose 153 H 102 Calcium 8.6 Total Bilirubin 0.4 AST 17 ALT 9 Alkaline Phosphatase 83 Total Creatine Kinase 53 Total Protein 6.0 L Albumin 3.2 L Urine Color Urine Appearance Urine pH Ur Specific [place] Urine Protein Urine Glucose (UA) Urine Ketones Ur Blood (Man) Urine Nitrate Urine Bilirubin Urine Urobilinogen Leukocyte Esterase Rfl Urine RBC Urine WBC Ur Squamous Epith Cells Urine Bacteria Urine Casts Urine Eosinophils U Random Total Protein Ur Random Sodium Ur Random Urea Urine Creatinine Protein/Creat Ratio 2 Hep Bs Antigen Negative Hep Bs Antibody Negative 04/06/24 10:26 WBC RBC Hgb Hct MCV MCH MCHC RDW Plt Count MPV Immature Gran % (Auto) Neut % (Auto) Lymph % (Auto) [place] % (Auto) Eos % (Auto) Baso % (Auto) Lymph # (Auto) [place] # (Auto) Eos # (Auto) Baso # (Auto) Abs Immat Gran (auto) Absolute Neuts (auto) Absolute Nucleated RBC Nucleated RBC % Puncture Site Left radial ABG pH 7.177 L* ABG pCO2 78.2 H* ABG pO2 76.5 L ABG PO2/FiO2 Ratio 2.39 ABG HCO3 28.3 H ABG O2 Saturation 91.1 L ABG O2 Content 13.4 L ABG Base Excess -1.3 A-a Gradient 60.2 Oxyhemoglobin 92.1 Total Hemoglobin 10.3 L O2 Delivery Device Nasal cannula O2 Liters/Min 3.0 FiO2 32 Sodium Potassium Chloride Carbon Dioxide Anion Gap BUN Creatinine Estim Creat Clear Calc Estimated GFR Glucose POC Capillary Glucose Calcium Total Bilirubin AST ALT Alkaline Phosphatase Total Creatine Kinase Total Protein Albumin Urine Color Urine Appearance Urine pH Ur Specific [place] Urine Protein Urine Glucose (UA) Urine Ketones Ur Blood (Man) Urine Nitrate Urine Bilirubin Urine Urobilinogen Leukocyte Esterase Rfl Urine RBC Urine WBC Ur Squamous Epith Cells Urine Bacteria Urine Casts Urine Eosinophils U Random Total Protein Ur Random Sodium Ur Random Urea Urine Creatinine Protein/Creat Ratio 2 Hep Bs Antigen Hep Bs Antibody Quality VTE Prophylaxis VTE prophylaxis: mechanical ordered and pharmacologic ordered
--- NOTE | 2024-04-06 10:45 | PC.NURSE ---
called respiratory to notify them that patient has repeat ABG with bipap timed from [id number]
--- NOTE | 2024-04-06 10:56 | P.PNNP_ITS ---
Progress Note: A&P Assessment and Plan (1) WILLIAN (acute kidney injury): Code(s): N17.9 - Acute kidney failure, unspecified Status: Acute Assessment and Plan: * better than baseline on admission * decline noted from 04/02 - 04/03 * Creatinine is a little bit better today. * CK is normal * suspect multifactorial etiology: * contrast exposure (CTA chest on 04/01) * use of IV diuretics since admission * use of Entresto since admission * relative hypotension (?) -- 90s - 100s systolic BP for a few hours on 04/03... 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 Ortega for management of CKD (3) Acute hypoxic respiratory failure: Code(s): J96.01 - Acute respiratory failure with hypoxia Status: Acute Assessment and Plan: * hypoxia noted on presentation to ER * CTA chest negative for PE * CT of chest without evidence of fluid overload (on 04/01_ * however, initiated on IV lasix * although CXR (on 04/04) with mild pulmonary vascular congestion * continue supplemental oxygen as needed to maintain above 90% * possibly complicated by known history of DAMI * continued with BiPAP at night * breathing is improved from last night * Pulmonary following (4) Atrial fibrillation with RVR: Code(s): I48.91 - Unspecified atrial fibrillation Status: Acute Assessment and Plan: * new onset/finding in ER * paroxysmal, as the patient is in NSR at this time * continue rate control strategy * started on anticoagulation * Cardiology following (5) CHF (congestive heart failure): Code(s): I50.9 - Heart failure, unspecified Status: Acute Assessment and Plan: * known history * however, in spite of elevated BNP, seems compensated on admission * CT chest (04/01) without fluid overload on admission * however, recent CXR (04/04) with mild pulmonary vascular congestion * on IV lasix * Lasix on hold * recent Echo difficult to read due to image quality * Cardiology following (6) Diabetes: Code(s): E11.9 - Type 2 diabetes mellitus without complications Status: Chronic Assessment and Plan: * follow accu-cheks * glycemic control per hospitalist Subjective Date/time seen: 04/06/24 10:56 Interval history: Marlen is feeling a little better today. She had a little shortness of breath overnight but feels fine now. Eating okay. Review of Systems Cardiovascular: Cardiovascular: Reports no additional cardiovascular complaints Respiratory: Respiratory: Reports no additional respiratory complaints Gastrointestinal: Gastrointestinal: Reports no additional gastrointestinal complaints Genitourinary: Genitourinary: Reports no additional female genitourinary complaints Exam Narrative: WDWN female with high BMI in NAD skin no rash head ncat lungs clear cor reg no rub abd BS+ nontender and soft ext no edema. Objective Data Vital Signs Vital Signs: Vital Signs - 24 hr 04/05/24 11:52 04/05/24 12:00 04/05/24 13:32 Temperature 96.7 F L Pulse Rate 70 66 70 Respiratory Rate 16 Blood Pressure 126/54 L Pulse Oximetry 97 Oxygen Delivery Oxygen Flow Rate 04/05/24 13:49 04/05/24 14:56 04/05/24 17:10 Temperature 96.7 F L Pulse Rate 70 75 80 Respiratory Rate 16 Blood Pressure 126/54 L Pulse Oximetry 97 Oxygen Delivery Oxygen Flow Rate 04/05/24 20:00 04/05/24 20:00 04/05/24 20:09 Temperature Pulse Rate 80 80 Respiratory Rate Blood Pressure Pulse Oximetry 97 Oxygen Delivery Nasal Cannula Oxygen Flow Rate 2 04/05/24 20:21 04/06/24 00:00 04/06/24 04:00 Temperature 97.6 F Pulse Rate 82 74 79 Respiratory Rate 16 Blood Pressure 164/70 H Pulse Oximetry 97 Oxygen Delivery Oxygen Flow Rate 04/06/24 05:01 04/06/24 09:40 04/06/24 09:42 Temperature 97.9 F 98.4 F Pulse Rate 80 78 70 Respiratory Rate 20 16 Blood Pressure 155/51 H 147/61 H Pulse Oximetry 92 96 Oxygen Delivery Oxygen Flow Rate 04/06/24 10:39 Temperature Pulse Rate 73 Respiratory Rate 22 H Blood Pressure Pulse Oximetry 92 Oxygen Delivery BiPAP Oxygen Flow Rate Intake/Output Intake/Output: Intake & Output 04/03/24 04/04/24 04/05/24 04/06/24 23:59 23:59 23:59 23:59 Intake Total 1190.0 904 621 3313 Output Total 301 0 500 Balance 889.0 650 285 9871 Meds/Results Medications: Active Medications Generic Name Dose Route Start Last Admin Trade Name Freq PRN Reason Stop Dose Admin Acetaminophen 650 mg 04/03/24 10:34 04/06/24 09:54 Acetaminophen 325 Mg Tablet PO 650 mg Q4H PRN Administration Headache Hydrocodone Bitart/Acetaminophen 1 tab 04/03/24 02:27 04/03/24 02:47 Hydrocodone/Acetaminophen (*Crx) 7.5-325 Mg Tablet PO 1 tab Q6H PRN Administration Pain Rated 7-10 Albuterol/Ipratropium 3 ml 04/02/24 00:22 Ipratropium 0.5 Mg/Albuterol Sulfate 2.5 Mg Ampul.Neb 3 Ml INHALATION Q4HRT PRN shortness of breath/Wheezing Allopurinol 300 mg 04/03/24 09:00 04/06/24 09:42 Allopurinol 100 Mg Tablet PO 300 mg QAM PILO Administration Allopurinol 200 mg 04/03/24 18:00 04/05/24 17:22 Allopurinol 100 Mg Tablet PO 200 mg QPM PILO Administration Apixaban 5 mg 04/03/24 21:00 04/06/24 09:42 Apixaban 5 Mg Tablet PO 5 mg Q12HR PILO Administration Atorvastatin Calcium 80 mg 04/03/24 09:00 04/06/24 09:42 Atorvastatin 40 Mg Tablet PO 80 mg DAILY PILO Administration Buspirone HCl 5 mg 04/02/24 17:00 04/06/24 09:43 Buspirone Hcl 5 Mg Tablet PO 5 mg BID PILO Administration Ezetimibe 10 mg 04/03/24 09:00 04/06/24 09:43 Ezetimibe 10 Mg Tablet PO 10 mg DAILY PILO Administration Empagliflozin 10 mg 04/03/24 09:00 04/06/24 09:43 Empagliflozin 10 Mg Tablet PO 10 mg DAILY PILO Administration Escitalopram Oxalate 20 mg 04/03/24 09:00 04/06/24 09:42 Escitalopram Oxalate 10 Mg Tablet PO 20 mg DAILY PILO Administration Furosemide 20 mg 04/02/24 00:25 04/05/24 08:17 Furosemide Inj 40 Mg/4 Ml Vial IV PUSH 20 mg BID PILO Administration Gabapentin 300 mg 04/02/24 13:00 04/06/24 09:42 Gabapentin 300 Mg Capsule PO 300 mg TID PILO Administration Isosorbide Mononitrate 120 mg 04/03/24 09:00 04/06/24 09:48 Isosorbide Mononitrate 60 Mg Tab.Er.24h PO 120 mg DAILY PILO Administration Levothyroxine Sodium 100 mcg 04/03/24 06:30 04/06/24 06:25 Levothyroxine Sodium 100 Mcg Tablet PO 100 mcg DAILY@0630 PILO Administration Melatonin 5 mg 04/02/24 00:22 Melatonin 5 Mg Tablet PO HS PRN Insomnia Metoprolol Tartrate 12.5 mg 04/02/24 00:30 04/06/24 09:42 Metoprolol Tartrate 12.5 Mg Tablet PO 12.5 mg Q12HR PILO Administration Prochlorperazine Edisylate 10 mg 04/02/24 00:22 Prochlorperazine Edisylate 10 Mg/2 Ml Vial IV PUSH Q6H PRN Nausea And Vomiting Sacubitril/Valsartan 1 tab 04/02/24 21:00 04/05/24 08:13 Sacubitril/Valsartan 97-103 Mg Tablet PO 1 tab Q12HR PILO Administration Radiology Results: ITS Impressions Chest CTA 04/01/24 19:46 IMPRESSION: No CT evidence of acute pulmonary embolus. No acute process detected in the chest. Venous Doppler Study 04/01/24 19:59 IMPRESSION: Patent bilateral lower extremity veins. No evidence of deep venous thrombosis. Chest X-Ray 04/04/24 09:27 IMPRESSION: Mild pulmonary vascular congestion, without focal infiltrate or effusion. Renal Ultrasound 04/05/24 14:58 IMPRESSION: 1. Normal right kidney. 2. Severe atrophy of left kidney. Labs Labs: Laboratory Results - last 24 hr 04/05/24 04/05/24 04/05/24 11:35 14:24 14:25 WBC RBC Hgb Hct MCV MCH MCHC RDW Plt Count MPV Immature Gran % (Auto) Neut % (Auto) Lymph % (Auto) [place] % (Auto) Eos % (Auto) Baso % (Auto) Lymph # (Auto) [place] # (Auto) Eos # (Auto) Baso # (Auto) Abs Immat Gran (auto) Absolute Neuts (auto) Absolute Nucleated RBC Nucleated RBC % Puncture Site ABG pH ABG pCO2 ABG pO2 ABG PO2/FiO2 Ratio ABG HCO3 ABG O2 Saturation ABG O2 Content ABG Base Excess A-a Gradient Oxyhemoglobin Total Hemoglobin O2 Delivery Device O2 Liters/Min FiO2 Sodium Potassium Chloride Carbon Dioxide Anion Gap BUN Creatinine Estim Creat Clear Calc Estimated GFR Glucose POC Capillary Glucose 115 H Calcium Total Bilirubin AST ALT Alkaline Phosphatase Total Creatine Kinase Total Protein Albumin Urine Color Yellow Urine Appearance Cloudy H Urine pH 5.0 Ur Specific [place] 1.013 Urine Protein 1+ H Urine Glucose (UA) 1+ H Urine Ketones Negative Ur Blood (Man) Negative Urine Nitrate Negative Urine Bilirubin Negative Urine Urobilinogen 0.2 Leukocyte Esterase Rfl 2+ H Urine RBC 0-2 Urine WBC 21-50 H Ur Squamous Epith Cells Many H Urine Bacteria 4+ H Urine Casts 3-5 Urine Eosinophils None seen U Random Total Protein 30 Ur Random Sodium Ur Random Urea Urine Creatinine Protein/Creat Ratio 2 Hep Bs Antigen Hep Bs Antibody 04/05/24 04/05/24 04/05/24 14:25 14:25 16:57 WBC RBC Hgb Hct MCV MCH MCHC RDW Plt Count MPV Immature Gran % (Auto) Neut % (Auto) Lymph % (Auto) [place] % (Auto) Eos % (Auto) Baso % (Auto) Lymph # (Auto) [place] # (Auto) Eos # (Auto) Baso # (Auto) Abs Immat Gran (auto) Absolute Neuts (auto) Absolute Nucleated RBC Nucleated RBC % Puncture Site ABG pH ABG pCO2 ABG pO2 ABG PO2/FiO2 Ratio ABG HCO3 ABG O2 Saturation ABG O2 Content ABG Base Excess A-a Gradient Oxyhemoglobin Total Hemoglobin O2 Delivery Device O2 Liters/Min FiO2 Sodium Potassium Chloride Carbon Dioxide Anion Gap BUN Creatinine Estim Creat Clear Calc Estimated GFR Glucose POC Capillary Glucose 117 H Calcium Total Bilirubin AST ALT Alkaline Phosphatase Total Creatine Kinase Total Protein Albumin Urine Color Urine Appearance Urine pH Ur Specific [place] Urine Protein Urine Glucose (UA) Urine Ketones Ur Blood (Man) Urine Nitrate Urine Bilirubin Urine Urobilinogen Leukocyte Esterase Rfl Urine RBC Urine WBC Ur Squamous Epith Cells Urine Bacteria Urine Casts Urine Eosinophils U Random Total Protein 30 Ur Random Sodium 21 Ur Random Urea 374 Urine Creatinine 145.8 Cancelled Protein/Creat Ratio 2 0.21 H Hep Bs Antigen Hep Bs Antibody 04/05/24 04/06/24 04/06/24 20:19 04:42 08:01 WBC 8.4 RBC 3.05 L Hgb 9.1 L Hct 30.3 L MCV 99.3 MCH 29.8 MCHC 30.0 L RDW 14.3 Plt Count 240 MPV 9.6 Immature Gran % (Auto) 0.5 Neut % (Auto) 74.3 H Lymph % (Auto) 12.7 L [place] % (Auto) 7.4 Eos % (Auto) 4.5 H Baso % (Auto) 0.6 Lymph # (Auto) 1.06 [place] # (Auto) 0.6 Eos # (Auto) 0.4 H Baso # (Auto) 0.1 Abs Immat Gran (auto) 0.04 H Absolute Neuts (auto) 6.2 Absolute Nucleated RBC 0.000 Nucleated RBC % 0.0 Puncture Site ABG pH ABG pCO2 ABG pO2 ABG PO2/FiO2 Ratio ABG HCO3 ABG O2 Saturation ABG O2 Content ABG Base Excess A-a Gradient Oxyhemoglobin Total Hemoglobin O2 Delivery Device O2 Liters/Min FiO2 Sodium 141 Potassium 4.8 Chloride 105 Carbon Dioxide 29 Anion Gap 7 BUN 68 H Creatinine 3.46 H Estim Creat Clear Calc 19 Estimated GFR 13 L Glucose 103 POC Capillary Glucose 153 H 102 Calcium 8.6 Total Bilirubin 0.4 AST 17 ALT 9 Alkaline Phosphatase 83 Total Creatine Kinase 53 Total Protein 6.0 L Albumin 3.2 L Urine Color Urine Appearance Urine pH Ur Specific [place] Urine Protein Urine Glucose (UA) Urine Ketones Ur Blood (Man) Urine Nitrate Urine Bilirubin Urine Urobilinogen Leukocyte Esterase Rfl Urine RBC Urine WBC Ur Squamous Epith Cells Urine Bacteria Urine Casts Urine Eosinophils U Random Total Protein Ur Random Sodium Ur Random Urea Urine Creatinine Protein/Creat Ratio 2 Hep Bs Antigen Negative Hep Bs Antibody Negative 04/06/24 10:26 WBC RBC Hgb Hct MCV MCH MCHC RDW Plt Count MPV Immature Gran % (Auto) Neut % (Auto) Lymph % (Auto) [place] % (Auto) Eos % (Auto) Baso % (Auto) Lymph # (Auto) [place] # (Auto) Eos # (Auto) Baso # (Auto) Abs Immat Gran (auto) Absolute Neuts (auto) Absolute Nucleated RBC Nucleated RBC % Puncture Site Left radial ABG pH 7.177 L* ABG pCO2 78.2 H* ABG pO2 76.5 L ABG PO2/FiO2 Ratio 2.39 ABG HCO3 28.3 H ABG O2 Saturation 91.1 L ABG O2 Content 13.4 L ABG Base Excess -1.3 A-a Gradient 60.2 Oxyhemoglobin 92.1 Total Hemoglobin 10.3 L O2 Delivery Device Nasal cannula O2 Liters/Min 3.0 FiO2 32 Sodium Potassium Chloride Carbon Dioxide Anion Gap BUN Creatinine Estim Creat Clear Calc Estimated GFR Glucose POC Capillary Glucose Calcium Total Bilirubin AST ALT Alkaline Phosphatase Total Creatine Kinase Total Protein Albumin Urine Color Urine Appearance Urine pH Ur Specific [place] Urine Protein Urine Glucose (UA) Urine Ketones Ur Blood (Man) Urine Nitrate Urine Bilirubin Urine Urobilinogen Leukocyte Esterase Rfl Urine RBC Urine WBC Ur Squamous Epith Cells Urine Bacteria Urine Casts Urine Eosinophils U Random Total Protein Ur Random Sodium Ur Random Urea Urine Creatinine Protein/Creat Ratio 2 Hep Bs Antigen Hep Bs Antibody
[2024-04-06 12:13] LABS: Glucose Point of Care 106 mg/dl (65-105)
[2024-04-06 12:39] LABS: Alveolar/Arterial O2 Gradient 107.8 mmHg; Base Excess ABG -1.7 mEq/l (+/-2.0); Fractional Inspired Oxygen 35 %; HCO3 ABG 26.2 mEq/l (22.0-26.0); Oxygen Content ABG 12.8 %vol (16.0-22.0); Oxygen Saturation ABG 90.7 % (95.0-100.0); Oxyhemoglobin 91.7 % THb (90.0-100.0); PO2 ABG 69.9 mmHg (80.0-100.0); Total Hemoglobin 9.9 g/dL (12.0-18.0)
[2024-04-06 12:43] LABS: pH ABG 7.245 (7.350-7.450)
[2024-04-06 12:44] LABS: PCO2 ABG 61.8 mmHg (35.0-45.0)
[2024-04-06 12:45] LABS: Device BIPAP; Modified Allen's Test Pass; Site Drawn RIGHT RADIAL
[2024-04-06 12:46] LABS: Expiratory Pressure 8 cmH2O; Inspiratory Pressure 20 cmH2O
--- NOTE | 2024-04-06 13:12 | PM.PNPUL ---
Progress Note: A&P Assessment and Plan (1) Hypercapnic respiratory failure: Code(s): J96.92 - Respiratory failure, unspecified with hypercapnia Status: Acute Assessment and Plan: A 64-year-old female with morbid obesity and a history of sleep apnea, previously managed with CPAP therapy until a device malfunction approximately six weeks ago, presented with hypoxemia. She was diagnosed with atrial fibrillation with rapid ventricular response and has since received treatment, returning to normal sinus rhythm. Arterial blood gas analysis indicated acute respiratory acidosis, with a pH around 7.26 and pCO2 exceeding 60 mmHg. It is noteworthy that there was no elevation in chronic bicarbonate levels to suggest chronic hypercapnic respiratory failure. The acute respiratory acidosis is likely related to her congestive heart failure and atrial fibrillation. On physical examination, her lungs were clear with no wheezing. Adjustments were made to initial BiPAP settings and patient used BiPAP support night, but not much Monday night. On today's exam she is fully awake with clear lungs. ABG today showed more hypercapnia. Plan: Change BiPAP to AVAPS and check ABG tomorrow morning. She can use this with all sleep including naps. While awake, O2 by nasal cannula at 2 L/min. Respiratory therapy department can arrange an AVAPS machine for home use. Her CPAP is from 2017, past end-of-life. She may plan to follow up in our pulmonary office after discharge. (2) Acute hypoxic respiratory failure: Code(s): J96.01 - Acute respiratory failure with hypoxia Status: Acute Assessment and Plan: See above. (3) Atrial fibrillation with RVR: Code(s): I48.91 - Unspecified atrial fibrillation Status: Acute Assessment and Plan: Now in NSR. Plans noted per dredge mate. (4) Acute on chronic systolic heart failure: Code(s): I50.23 - Acute on chronic systolic (congestive) heart failure Status: Acute Assessment and Plan: She is off Entresto and Lasix with elevated BUN and creatinine,68/3.46, rising since admission. CXR today shows pulmonary vascular redistribution, making me want to give her diuretic, but that is not a plan for today. She is off these medications until renal funciton recovers. She had elevated proBNP trending up; Apr 01= 2459, Apr [id number], Apr [id number]. Subjective Date/time seen: 04/06/24 13:12 Interval history: 04/06/24; pulmonary follow up visit: Abigail Monreal is 64 years old, never smoker, has acute hypercapnic hypoxemic respiratory failure associated with CHF and new atrial fib with RVR; she had a repeat ABG today which was worse compared to admission. She only wore BiPAP 20/8 & 35% a few hours last night. ABG 04/06; 35%; pH 7.177; pCO2 78, pO2 76, HCO3 28.3, saturation 95% ABG 04/06; BiPAP 20/8 & 35%; pH 7.24; pCO2 66, pO2 69, HCO3 26, sat 90.7% -increased A-a gradient She is alert, says that she does not feel too bad, is more short of breath and has had increased weight especially due to edema prior to admission. She was treated with CPAP or maybe BiPAP 21/12 since 2016, was seeing pulmonary doctors at [facility], no follow up for years. She has an appointment with Dr Prieto, a new sanitation associate at [facility], April 11 at 10:00 a.m., however says that if she ever needs admission, she plans to come to [place]. She decided that she wants to follow up here for sleep and pulmonary care. 64 year old woman without smoking history of lung disease was admitted 04/01/24 with shortness of breath and palpitations. Her CPAP broke 6 weeks prior to admission, has not been using it. She came in with swollen feet and increased dyspnea. Was in afib with RVR and CHF with acute on chronic renal failure. Reports 50 lb weight gain in the last year. PMH: CAD, PCI, CHFrEF, DAMI on PAP 2016, HTN, DM type 2, hyperlipidemia, CKD with acute worsening. DATA * 04/01/2024, CTA - No CT evidence of acute pulmonary embolus. No acute process detected in the chest. * 04/06/2024 CXR ; Likely congestive heart failure with cardiomegaly, pulmonary vascular congestion and mild pulmonary edema in the lower lung zones. * 04/02/24; renal USG; Normal right kidney. Severe atrophy of left kidney. * 04/01/2024; LE Venous Dopplers; Patent bilateral lower extremity veins. No evidence of deep venous thrombosis. * 04/02/24; echo; Very difficult echocardiogram even with Definity contrast image quality was quite poor. Impression of mildly depressed left ventricular systolic function. 3. Inability to accurately quantify ejection fraction because of poor image quality. 4. No obvious valvular dysfunction. 5. Normal sinus rhythm, exam was ordered because of atrial fib. * 04/06/24; BMP 141 105 68 (BUN was 46 @admission) 4.8 29 3.46 ( creat 1.55 @admission) Review of Systems Review of Systems: All systems reviewed & are unremarkable except as noted in HPI and below Exam Narrative: GEN: Alert, oriented, not in distress, wearing nasal cannula while sitting on the side of the bed. On 2 L, sat = 92 to 100%. While sitting up, she is breathing much more easily. She wears a small fullface mask, and getting the right fit will decrease the large air leak she had while using PAP supine. HEENT: pupils are equal, EOMI, symmetrical face; oral membranes moist, Mallampati II airway NECK: Trachea is midline CHEST: Equal air entry, symmetric excursion, clear breath sounds CV: Regular S1S2 no m/g/r Extremities : no clubbing, cyanosis, trace edema PSYCH: normal thought and speech, gait is not tested. Objective Data Vital Signs Vital Signs: Vital Signs - 24 hr 04/05/24 13:32 04/05/24 13:49 04/05/24 14:56 Temperature 35.9 C L 35.9 C L Pulse Rate 70 70 75 Respiratory Rate 16 16 Blood Pressure 126/54 L 126/54 L Pulse Oximetry 97 97 Oxygen Delivery Oxygen Flow Rate 04/05/24 17:10 04/05/24 20:00 04/05/24 20:00 Temperature Pulse Rate 80 80 Respiratory Rate Blood Pressure Pulse Oximetry 97 Oxygen Delivery Nasal Cannula Oxygen Flow Rate 2 04/05/24 20:09 04/05/24 20:21 04/06/24 00:00 Temperature 36.4 C Pulse Rate 80 82 74 Respiratory Rate 16 Blood Pressure 164/70 H Pulse Oximetry 97 Oxygen Delivery Oxygen Flow Rate 04/06/24 04:00 04/06/24 05:01 04/06/24 08:00 Temperature 36.6 C Pulse Rate 79 80 77 Respiratory Rate 20 Blood Pressure 155/51 H Pulse Oximetry 92 Oxygen Delivery Oxygen Flow Rate 04/06/24 09:40 04/06/24 09:40 04/06/24 09:42 Temperature 36.9 C Pulse Rate 78 70 Respiratory Rate 16 Blood Pressure 147/61 H Pulse Oximetry 96 95 Oxygen Delivery Nasal Cannula Oxygen Flow Rate 2 04/06/24 10:39 04/06/24 10:50 04/06/24 12:00 Temperature Pulse Rate 73 71 Respiratory Rate 22 H Blood Pressure Pulse Oximetry 92 Oxygen Delivery BiPAP BiPAP Oxygen Flow Rate 04/06/24 12:30 04/06/24 12:30 Temperature 36.3 C L Pulse Rate 66 Respiratory Rate 22 H Blood Pressure 148/64 H Pulse Oximetry 96 Oxygen Delivery BiPAP Oxygen Flow Rate Intake/Output Intake/Output: Intake & Output 04/03/24 04/04/24 04/05/24 04/06/24 23:59 23:59 23:59 23:59 Intake Total 1190.0 172 461 0428 Output Total 301 0 500 Balance 889.0 505 041 5354 Meds/Results Medications: Active Medications Generic Name Dose Route Start Last Admin Trade Name Freq PRN Reason Stop Dose Admin Acetaminophen 650 mg 04/03/24 10:34 04/06/24 09:54 Acetaminophen 325 Mg Tablet PO 650 mg Q4H PRN Administration Headache Hydrocodone Bitart/Acetaminophen 1 tab 04/03/24 02:27 04/03/24 02:47 Hydrocodone/Acetaminophen (*Crx) 7.5-325 Mg Tablet PO 1 tab Q6H PRN Administration Pain Rated 7-10 Albuterol/Ipratropium 3 ml 04/02/24 00:22 Ipratropium 0.5 Mg/Albuterol Sulfate 2.5 Mg Ampul.Neb 3 Ml INHALATION Q4HRT PRN shortness of breath/Wheezing Allopurinol 300 mg 04/03/24 09:00 04/06/24 09:42 Allopurinol 100 Mg Tablet PO 300 mg QAM PILO Administration Allopurinol 200 mg 04/03/24 18:00 04/05/24 17:22 Allopurinol 100 Mg Tablet PO 200 mg QPM PILO Administration Apixaban 5 mg 04/03/24 21:00 04/06/24 09:42 Apixaban 5 Mg Tablet PO 5 mg Q12HR PILO Administration Atorvastatin Calcium 80 mg 04/03/24 09:00 04/06/24 09:42 Atorvastatin 40 Mg Tablet PO 80 mg DAILY PILO Administration Buspirone HCl 5 mg 04/02/24 17:00 04/06/24 09:43 Buspirone Hcl 5 Mg Tablet PO 5 mg BID PILO Administration Ezetimibe 10 mg 04/03/24 09:00 04/06/24 09:43 Ezetimibe 10 Mg Tablet PO 10 mg DAILY PILO Administration Empagliflozin 10 mg 04/03/24 09:00 04/06/24 09:43 Empagliflozin 10 Mg Tablet PO 10 mg DAILY PILO Administration Escitalopram Oxalate 20 mg 04/03/24 09:00 04/06/24 09:42 Escitalopram Oxalate 10 Mg Tablet PO 20 mg DAILY PILO Administration Furosemide 20 mg 04/02/24 00:25 04/05/24 08:17 Furosemide Inj 40 Mg/4 Ml Vial IV PUSH 20 mg BID PILO Administration Gabapentin 300 mg 04/02/24 13:00 04/06/24 12:43 Gabapentin 300 Mg Capsule PO Not Given TID PILO Isosorbide Mononitrate 120 mg 04/03/24 09:00 04/06/24 09:48 Isosorbide Mononitrate 60 Mg Tab.Er.24h PO 120 mg DAILY PILO Administration Levothyroxine Sodium 100 mcg 04/03/24 06:30 04/06/24 06:25 Levothyroxine Sodium 100 Mcg Tablet PO 100 mcg DAILY@0630 PILO Administration Melatonin 5 mg 04/02/24 00:22 Melatonin 5 Mg Tablet PO HS PRN Insomnia Metoprolol Tartrate 12.5 mg 04/02/24 00:30 04/06/24 09:42 Metoprolol Tartrate 12.5 Mg Tablet PO 12.5 mg Q12HR PILO Administration Prochlorperazine Edisylate 10 mg 04/02/24 00:22 Prochlorperazine Edisylate 10 Mg/2 Ml Vial IV PUSH Q6H PRN Nausea And Vomiting Sacubitril/Valsartan 1 tab 04/02/24 21:00 04/05/24 08:13 Sacubitril/Valsartan 97-103 Mg Tablet PO 1 tab Q12HR PILO Administration Radiology Results: ITS Impressions Chest CTA 04/01/24 19:46 IMPRESSION: No CT evidence of acute pulmonary embolus. No acute process detected in the chest. Venous Doppler Study 04/01/24 19:59 IMPRESSION: Patent bilateral lower extremity veins. No evidence of deep venous thrombosis. Renal Ultrasound 04/05/24 14:58 IMPRESSION: 1. Normal right kidney. 2. Severe atrophy of left kidney. Chest X-Ray 04/06/24 12:47 IMPRESSION: 1. Likely congestive heart failure with cardiomegaly, pulmonary vascular congestion and mild pulmonary edema in the lower lung zones. Labs Labs: Laboratory Results - last 24 hr 04/05/24 04/05/24 04/05/24 14:24 14:25 14:25 WBC RBC Hgb Hct MCV MCH MCHC RDW Plt Count MPV Immature Gran % (Auto) Neut % (Auto) Lymph % (Auto) [place] % (Auto) Eos % (Auto) Baso % (Auto) Lymph # (Auto) [place] # (Auto) Eos # (Auto) Baso # (Auto) Abs Immat Gran (auto) Absolute Neuts (auto) Absolute Nucleated RBC Nucleated RBC % Puncture Site ABG pH ABG pCO2 ABG pO2 ABG PO2/FiO2 Ratio ABG HCO3 ABG O2 Saturation ABG O2 Content ABG Base Excess A-a Gradient Oxyhemoglobin Total Hemoglobin O2 Delivery Device O2 Liters/Min FiO2 Expiratory Pressure Inspiratory Pressure Sodium Potassium Chloride Carbon Dioxide Anion Gap BUN Creatinine Estim Creat Clear Calc Estimated GFR Glucose POC Capillary Glucose Calcium Total Bilirubin AST ALT Alkaline Phosphatase Total Creatine Kinase Total Protein Albumin Urine Color Yellow Urine Appearance Cloudy H Urine pH 5.0 Ur Specific [place] 1.013 Urine Protein 1+ H Urine Glucose (UA) 1+ H Urine Ketones Negative Ur Blood (Man) Negative Urine Nitrate Negative Urine Bilirubin Negative Urine Urobilinogen 0.2 Leukocyte Esterase Rfl 2+ H Urine RBC 0-2 Urine WBC 21-50 H Ur Squamous Epith Cells Many H Urine Bacteria 4+ H Urine Casts 3-5 Urine Eosinophils None seen U Random Total Protein 30 30 Ur Random Sodium 21 Ur Random Urea 374 Urine Creatinine 145.8 Protein/Creat Ratio 2 Hep Bs Antigen Hep Bs Antibody 04/05/24 04/05/24 04/05/24 14:25 16:57 20:19 WBC RBC Hgb Hct MCV MCH MCHC RDW Plt Count MPV Immature Gran % (Auto) Neut % (Auto) Lymph % (Auto) [place] % (Auto) Eos % (Auto) Baso % (Auto) Lymph # (Auto) [place] # (Auto) Eos # (Auto) Baso # (Auto) Abs Immat Gran (auto) Absolute Neuts (auto) Absolute Nucleated RBC Nucleated RBC % Puncture Site ABG pH ABG pCO2 ABG pO2 ABG PO2/FiO2 Ratio ABG HCO3 ABG O2 Saturation ABG O2 Content ABG Base Excess A-a Gradient Oxyhemoglobin Total Hemoglobin O2 Delivery Device O2 Liters/Min FiO2 Expiratory Pressure Inspiratory Pressure Sodium Potassium Chloride Carbon Dioxide Anion Gap BUN Creatinine Estim Creat Clear Calc Estimated GFR Glucose POC Capillary Glucose 117 H 153 H Calcium Total Bilirubin AST ALT Alkaline Phosphatase Total Creatine Kinase Total Protein Albumin Urine Color Urine Appearance Urine pH Ur Specific [place] Urine Protein Urine Glucose (UA) Urine Ketones Ur Blood (Man) Urine Nitrate Urine Bilirubin Urine Urobilinogen Leukocyte Esterase Rfl Urine RBC Urine WBC Ur Squamous Epith Cells Urine Bacteria Urine Casts Urine Eosinophils U Random Total Protein Ur Random Sodium Ur Random Urea Urine Creatinine Cancelled Protein/Creat Ratio 2 0.21 H Hep Bs Antigen Hep Bs Antibody 04/06/24 04/06/24 04/06/24 04:42 08:01 10:26 WBC 8.4 RBC 3.05 L Hgb 9.1 L Hct 30.3 L MCV 99.3 MCH 29.8 MCHC 30.0 L RDW 14.3 Plt Count 240 MPV 9.6 Immature Gran % (Auto) 0.5 Neut % (Auto) 74.3 H Lymph % (Auto) 12.7 L [place] % (Auto) 7.4 Eos % (Auto) 4.5 H Baso % (Auto) 0.6 Lymph # (Auto) 1.06 [place] # (Auto) 0.6 Eos # (Auto) 0.4 H Baso # (Auto) 0.1 Abs Immat Gran (auto) 0.04 H Absolute Neuts (auto) 6.2 Absolute Nucleated RBC 0.000 Nucleated RBC % 0.0 Puncture Site Left radial ABG pH 7.177 L* ABG pCO2 78.2 H* ABG pO2 76.5 L ABG PO2/FiO2 Ratio 2.39 ABG HCO3 28.3 H ABG O2 Saturation 91.1 L ABG O2 Content 13.4 L ABG Base Excess -1.3 A-a Gradient 60.2 Oxyhemoglobin 92.1 Total Hemoglobin 10.3 L O2 Delivery Device Nasal cannula O2 Liters/Min 3.0 FiO2 32 Expiratory Pressure Inspiratory Pressure Sodium 141 Potassium 4.8 Chloride 105 Carbon Dioxide 29 Anion Gap 7 BUN 68 H Creatinine 3.46 H Estim Creat Clear Calc 19 Estimated GFR 13 L Glucose 103 POC Capillary Glucose 102 Calcium 8.6 Total Bilirubin 0.4 AST 17 ALT 9 Alkaline Phosphatase 83 Total Creatine Kinase 53 Total Protein 6.0 L Albumin 3.2 L Urine Color Urine Appearance Urine pH Ur Specific [place] Urine Protein Urine Glucose (UA) Urine Ketones Ur Blood (Man) Urine Nitrate Urine Bilirubin Urine Urobilinogen Leukocyte Esterase Rfl Urine RBC Urine WBC Ur Squamous Epith Cells Urine Bacteria Urine Casts Urine Eosinophils U Random Total Protein Ur Random Sodium Ur Random Urea Urine Creatinine Protein/Creat Ratio 2 Hep Bs Antigen Negative Hep Bs Antibody Negative 04/06/24 04/06/24 12:00 12:26 WBC RBC Hgb Hct MCV MCH MCHC RDW Plt Count MPV Immature Gran % (Auto) Neut % (Auto) Lymph % (Auto) [place] % (Auto) Eos % (Auto) Baso % (Auto) Lymph # (Auto) [place] # (Auto) Eos # (Auto) Baso # (Auto) Abs Immat Gran (auto) Absolute Neuts (auto) Absolute Nucleated RBC Nucleated RBC % Puncture Site Right radial ABG pH 7.245 L* ABG pCO2 61.8 H* ABG pO2 69.9 L ABG PO2/FiO2 Ratio 2.00 ABG HCO3 26.2 H ABG O2 Saturation 90.7 L ABG O2 Content 12.8 L ABG Base Excess -1.7 A-a Gradient 107.8 Oxyhemoglobin 91.7 Total Hemoglobin 9.9 L O2 Delivery Device Bipap O2 Liters/Min Not Reportable FiO2 35 Expiratory Pressure 8 Inspiratory Pressure 20 Sodium Potassium Chloride Carbon Dioxide Anion Gap BUN Creatinine Estim Creat Clear Calc Estimated GFR Glucose POC Capillary Glucose 106 H Calcium Total Bilirubin AST ALT Alkaline Phosphatase Total Creatine Kinase Total Protein Albumin Urine Color Urine Appearance Urine pH Ur Specific [place] Urine Protein Urine Glucose (UA) Urine Ketones Ur Blood (Man) Urine Nitrate Urine Bilirubin Urine Urobilinogen Leukocyte Esterase Rfl Urine RBC Urine WBC Ur Squamous Epith Cells Urine Bacteria Urine Casts Urine Eosinophils U Random Total Protein Ur Random Sodium Ur Random Urea Urine Creatinine Protein/Creat Ratio 2 Hep Bs Antigen Hep Bs Antibody
[2024-04-06 16:51] LABS: Hemoglobin A1C 7.2 % (<5.7)
[2024-04-06 17:02] LABS: Glucose Point of Care 97 mg/dl (65-105)
[2024-04-06] MEDS: allopurinoL 100 MG TABLET 200 MG PO (18:46)
[2024-04-06 23:32] LABS: Glucose Point of Care 141 mg/dl (65-105)
[2024-04-07] VITALS (20 sets, daily range): BP systolic 110–163; BP diastolic 64–99; PULSE 68–85; RESP 14–24; TEMP 36.3–36.7; O2SAT 93–100
[2024-04-07 04:42] LABS: Base Excess ABG 1.3 mEq/l (+/-2.0); Fractional Inspired Oxygen 35 %; HCO3 ABG 29.6 mEq/l (22.0-26.0); Oxygen Content ABG 12.4 %vol (16.0-22.0); PO2 ABG 55.5 mmHg (80.0-100.0); PO2 FiO2 Ratio Arterial Blood 1.59 %; Total Hemoglobin 10.1 g/dL (12.0-18.0)
[2024-04-07 05:16] LABS: pH ABG 7.251 (7.350-7.450)
[2024-04-07 05:17] LABS: Oxygen Saturation ABG 82.9 % (95.0-100.0); PCO2 ABG 68.9 mmHg (35.0-45.0)
[2024-04-07 05:18] LABS: Device OTHER DEVICE; Modified Allen's Test Pass; Oxyhemoglobin 87.4 % THb (90.0-100.0); Site Drawn RIGHT RADIAL
[2024-04-07] MEDS: LEVOTHYROXINE SODIUM 100 MCG TABLET PO (05:39)
[2024-04-07 06:25] LABS: Basophils Percent Auto 0.5 % (0.2-1.2); Eosinophils Absolute Auto 0.3 K/mm3 (0-0.3); Eosinophils Percent Auto 3.9 % (0-4.4); Hematocrit 33.7 % (37.0-47.0); Immature Granulocyte Absolute 0.03 K/mm3 (0.00-0.031); Immature Granulocyte Percent A 0.4 % (0-0.5); Lymphocytes Absolute Auto 0.78 K/mm3 (0.9-3.2); Lymphocytes Percent Auto 10.2 % (18.3-44.2); Mean Corpuscular HGB Conc 29.7 g/dl (32-36); Mean Corpuscular Hemoglobin 30.1 pg (26-34); Mean Corpuscular Volume 101.5 fl (80-100); Mean Platelet Volume 9.7 fl (7.4-10.4); Monocytes Absolute Auto 0.5 K/mm3 (0.1-0.6); Monocytes Percent Auto 5.9 % (2.6-8.5); Neutrophils Percent Auto 79.1 % (45.5-73.1); Platelet Count Result 266 k/mm3 (150-375); Red Blood Count 3.32 M/mm3 (4.2-5.4); Red Cell Distribution Width 14.4 % (11.5-14.5); White Blood Count 7.6 K/mm3 (4.5-10.0)
[2024-04-07 06:46] LABS: Alanine Aminotransferase 11 U/L (6-35); Albumin Level 3.9 g/dL (3.5-5.1); Alkaline Phosphatase 94 U/L (38-126); Anion Gap 11 mmol/L (4-12); Aspartate Amino Transferase 18 U/L (14-36); Bilirubin,Total 0.5 mg/dL (0.2-1.3); Blood Urea Nitrogen 58 mg/dL (7-17); Calcium 9.3 mg/dL (8.4-10.2); Carbon Dioxide 29 mmol/L (22-30); Chloride 106 mmol/L (98-107); Estimated CRCL calculation 25 ml/min; Estimated Glomerular Filt Rate 18; Glucose 112 mg/dL (65-110); Potassium 4.6 mmol/L (3.4-5.0); Sodium 146 mmol/L (137-145)
--- NOTE | 2024-04-07 07:00 | P.PNIM_ITS ---
Progress Note: A&P Assessment and Plan (1) Atrial fibrillation with RVR: Code(s): I48.91 - Unspecified atrial fibrillation Status: Acute Assessment and Plan: * continue eliquis and metoprolol * Cardiology following * Echo shown LVEF 40-45% 3/2 * No change to current treatment plan (2) Acute hypoxic respiratory failure: Code(s): J96.01 - Acute respiratory failure with hypoxia Status: Acute Assessment and Plan: * CTA negative for PE * Pulmonology consulted * ABG today showing pH 7.177, pCO2 78.2, pO2 76.5, Bicarb 28.3. Patient was placed on continuous bipap with follow up ABG showing 7.254, PCO2 61.8, pO2 69.9, bicarb 26.2 * CXR showing congestive heart failure with cardiomegaly, pulmonary vascular congestion and mild pulmonary edema in the lower lung zones * Hx of DAMI wears Cpap at bedtime however her unit is not working at home. ??? considering her hypercapnia she would benefit from Bipap in AVAPS instead of Cpap. * TTE shown LVEF of 40-45% 3/2 * Blood gas today shown pH 7.251, pCO2 68.9, pO2 55.5, Bicarb 29.6 * She is still not corrected and will need to be placed back on Bipap, Nursing notified to call results to supervisor [employer] * She will likely need adjustments to her AVAPS mode, defer to pulmonology * She will need Bipap/AVAPS machine before discharging (3) CHF (congestive heart failure): Code(s): I50.9 - Heart failure, unspecified Status: Acute Assessment and Plan: * Echo shown LVEF of 40-45% per Cardiology notation * Continue Jardiance and Metoprolol * Entresto and Lasix on hold * CXR showing congestive heart failure with cardiomegaly, pulmonary vascular congestion and mild pulmonary edema in the lower lung zones 3/2 * Continue to hold Lasix and Entresto (4) WILLIAN (acute kidney injury): Code(s): N17.9 - Acute kidney failure, unspecified Status: Acute Assessment and Plan: * Creatinine 3.46 today, EGF 13 * Lasix and Entresto on hold * Avoid nephrotoxic medication * Nephrology following * Baseline creatinine 1.80-2.30 * Continue to trend 3/2 * Creatinine 2.61 * Continue to hold Lasix and Entresto * Avoid nephrotoxic medication * Nephrology following * Continue to trend (5) Hypothyroidism: Code(s): E03.9 - Hypothyroidism, unspecified Status: Acute Assessment and Plan: * Continue synthroid 3/2 * No change to current treatment plan (6) Diabetes: Code(s): E11.9 - Type 2 diabetes mellitus without complications Status: Chronic Assessment and Plan: * Blood sugars ranging 102-153 * Will obtain Hgb A1C * Accu checks AC/HS * High dose SSI ordered * hypoglycemic protocol in place * Diabetic diet ordered /2 * No change to current treatment plan Time Spent With Patient Time with patient: 25 - 35 minutes Subjective Date/time seen: 04/07/24 07:00 Interval history: Interval history: This is a 64-year-old female with a significant past medical history of coronary artery disease status post PCI, congestive heart failure with reduced ejection fraction, dyslipidemia, obesity, DAMI, hypertension, type 2 diabetes mellitus who presented to the hospital with palpitations and shortness of breath. She was found to have new onset AFib RVR and heparin infusion was i nitiated however she was transition to Eliquis 5 mg p.o. b.i.d. and metoprolol 12.5 mg p.o. b.i.d. She also had Acute hypoxic and hypercapnic respiratory failure requiring Bipap/AVAPS. Workup in the hospital included a chest CTA which was negative for PE. Venous Doppler study which was negative for DVT. Chest x-ray showing mild pulmonary vascular congestion without focal infiltrate or effusion. Renal ultrasound showing normal right kidney, severe atrophy of the left kidney. Initial labs showed a normal white blood cell count of 8.8, hemoglobin 10.8, creatinine 1.55, EGFR 33, blood sugar 52 with a repeat of 116, troponin negative x2, proBNP 2450. Respiratory panel was negative for influenza a and B, RSV, COVID. EKG showed AFib with RVR with a rate of 117, QTC 550, left bundle branch block. Repeat EKG showed sinus rhythm with first-degree AV block with a left bundle branch block with a rate of 88, QTC 542. Echocardiogram obtained and showed depressed LV EF of 40-45%. Patient was initially placed in IMU due to hypercapnia on her ABG requiring continuous BiPAP and AVAPS mode. Pulmonology was also consulted and following. Subjective: Patient denies any complaints today. She is currently sitting on the side of the bed with 2L NC. Discussed her most recent ABG and that she will likely require AVAPS/Bipap at home due to her hypercapnia. Labs reviewed. Review of Systems Review of Systems: All systems reviewed & are unremarkable except as noted in HPI and below Exam Narrative: General: In no acute distress, well nourished Cardiac: Normal S1 and S2. No murmur, gallops or friction rubs, peripheral pulses intact. Respiratory: Diminished, clear breath sounds, no adventitious lung sounds, currently on 2L NC. Uses AVAPS/Bipap at night and for napping Gastrointestinal: soft, non-distended, non-tender, normoactive bowel sounds. : voiding without difficulty. Neuro:Alert and oriented x3 Objective Data Vital Signs Vital Signs: Vital Signs - 24 hr 04/06/24 08:00 04/06/24 09:40 04/06/24 09:40 Temperature 98.4 F Pulse Rate 77 78 Respiratory Rate 16 Blood Pressure 147/61 H Pulse Oximetry 96 95 Oxygen Delivery Nasal Cannula Oxygen Flow Rate 2 04/06/24 09:42 04/06/24 10:39 04/06/24 10:50 Temperature Pulse Rate 70 73 Respiratory Rate 22 H Blood Pressure Pulse Oximetry 92 Oxygen Delivery BiPAP BiPAP Oxygen Flow Rate 04/06/24 12:00 04/06/24 12:30 04/06/24 12:30 Temperature 97.4 F L Pulse Rate 71 66 Respiratory Rate 22 H Blood Pressure 148/64 H Pulse Oximetry 96 Oxygen Delivery BiPAP Oxygen Flow Rate 04/06/24 14:14 04/06/24 16:00 04/06/24 20:00 Temperature Pulse Rate 64 66 70 Respiratory Rate 23 H Blood Pressure Pulse Oximetry 100 Oxygen Delivery BiPAP Oxygen Flow Rate 04/06/24 21:00 04/06/24 21:33 04/06/24 23:02 Temperature 97.6 F Pulse Rate 70 70 68 Respiratory Rate 16 23 H Blood Pressure 147/64 H Pulse Oximetry 92 95 Oxygen Delivery BiPAP Oxygen Flow Rate 04/07/24 00:00 04/07/24 02:25 04/07/24 04:00 Temperature Pulse Rate 75 70 73 Respiratory Rate 14 Blood Pressure Pulse Oximetry 96 Oxygen Delivery BiPAP Oxygen Flow Rate 04/07/24 04:42 Temperature 97.6 F Pulse Rate 72 Respiratory Rate 16 Blood Pressure 153/64 H Pulse Oximetry 100 Oxygen Delivery Oxygen Flow Rate Intake/Output Intake/Output: Intake & Output 04/04/24 04/05/24 04/06/24 04/07/24 23:59 23:59 23:59 23:59 Intake Total 231 157 8888 400 Output Total 0 500 Balance 212 822 5309 400 Meds/Results Medications: Active Medications Generic Name Dose Route Start Last Admin Trade Name Freq PRN Reason Stop Dose Admin Acetaminophen 650 mg 04/03/24 10:34 04/06/24 09:54 Acetaminophen 325 Mg Tablet PO 650 mg Q4H PRN Administration Headache Hydrocodone Bitart/Acetaminophen 1 tab 04/03/24 02:27 04/03/24 02:47 Hydrocodone/Acetaminophen (*Crx) 7.5-325 Mg Tablet PO 1 tab Q6H PRN Administration Pain Rated 7-10 Albuterol/Ipratropium 3 ml 04/02/24 00:22 Ipratropium 0.5 Mg/Albuterol Sulfate 2.5 Mg Ampul.Neb 3 Ml INHALATION Q4HRT PRN shortness of breath/Wheezing Allopurinol 300 mg 04/03/24 09:00 04/06/24 09:42 Allopurinol 100 Mg Tablet PO 300 mg QAM PILO Administration Allopurinol 200 mg 04/03/24 18:00 04/06/24 18:46 Allopurinol 100 Mg Tablet PO 200 mg QPM PILO Administration Apixaban 5 mg 04/03/24 21:00 04/06/24 21:33 Apixaban 5 Mg Tablet PO 5 mg Q12HR PILO Administration Atorvastatin Calcium 80 mg 04/03/24 09:00 04/06/24 09:42 Atorvastatin 40 Mg Tablet PO 80 mg DAILY PILO Administration Buspirone HCl 5 mg 04/02/24 17:00 04/06/24 18:46 Buspirone Hcl 5 Mg Tablet PO 5 mg BID PILO Administration Ezetimibe 10 mg 04/03/24 09:00 04/06/24 09:43 Ezetimibe 10 Mg Tablet PO 10 mg DAILY PILO Administration Empagliflozin 10 mg 04/03/24 09:00 04/06/24 09:43 Empagliflozin 10 Mg Tablet PO 10 mg DAILY [facility]O Administration Escitalopram Oxalate 20 mg 04/03/24 09:00 04/06/24 09:42 Escitalopram Oxalate 10 Mg Tablet PO 20 mg DAILY [facility] Administration Furosemide 40 mg 04/06/24 17:00 Furosemide Inj 40 Mg/4 Ml Vial IV PUSH BID PILO Gabapentin 300 mg 04/02/24 13:00 04/06/24 18:46 Gabapentin 300 Mg Capsule PO 300 mg TID P[facility]O Administration Insulin Aspart 4 - 8 units 04/06/24 17:00 04/06/24 18:45 Insulin Aspart (*Bkc) 100 Units/Ml SUB-Q Not Given TIDWM [facility] Protocol Insulin Aspart 2 - 4 units 04/06/24 21:00 04/06/24 23:25 Insulin Aspart (*Bkc) 100 Units/Ml SUB-Q Not Given HS [facility] Protocol Isosorbide Mononitrate 120 mg 04/03/24 09:00 04/06/24 09:48 Isosorbide Mononitrate 60 Mg Tab.Er.24h PO 120 mg DAILY PILO Administration Levothyroxine Sodium 100 mcg 04/03/24 06:30 04/07/24 05:39 Levothyroxine Sodium 100 Mcg Tablet PO 100 mcg DAILY@0630 [facility] Administration Melatonin 5 mg 04/02/24 00:22 Melatonin 5 Mg Tablet PO HS PRN Insomnia Metoprolol Tartrate 12.5 mg 04/02/24 00:30 04/06/24 21:33 Metoprolol Tartrate 12.5 Mg Tablet PO 12.5 mg Q12HR [facility] Administration Prochlorperazine Edisylate 10 mg 04/02/24 00:22 Prochlorperazine Edisylate 10 Mg/2 Ml Vial IV PUSH Q6H PRN Nausea And Vomiting Sacubitril/Valsartan 1 tab 04/02/24 21:00 04/05/24 08:13 Sacubitril/Valsartan 97-103 Mg Tablet PO 1 tab Q12HR PILO Administration Radiology Results: ITS Impressions Chest CTA 04/01/24 19:46 IMPRESSION: No CT evidence of acute pulmonary embolus. No acute process detected in the chest. Venous Doppler Study 04/01/24 19:59 IMPRESSION: Patent bilateral lower extremity veins. No evidence of deep venous thrombosis. Renal Ultrasound 04/05/24 14:58 IMPRESSION: 1. Normal right kidney. 2. Severe atrophy of left kidney. Chest X-Ray 04/06/24 12:47 IMPRESSION: 1. Likely congestive heart failure with cardiomegaly, pulmonary vascular congestion and mild pulmonary edema in the lower lung zones. Labs Labs: Laboratory Results - last 24 hr 04/06/24 04/06/24 04/06/24 04:41 08:01 10:26 Puncture Site Left radial ABG pH 7.177 L* ABG pCO2 78.2 H* ABG pO2 76.5 L ABG PO2/FiO2 Ratio 2.39 ABG HCO3 28.3 H ABG O2 Saturation 91.1 L ABG O2 Content 13.4 L ABG Base Excess -1.3 A-a Gradient 60.2 Oxyhemoglobin 92.1 Total Hemoglobin 10.3 L O2 Delivery Device Nasal cannula O2 Liters/Min 3.0 FiO2 32 Expiratory Pressure Inspiratory Pressure Sodium Potassium Chloride Carbon Dioxide Anion Gap BUN Creatinine Estim Creat Clear Calc Estimated GFR Glucose POC Capillary Glucose 102 Hemoglobin A1c 7.2 H Calcium Total Bilirubin AST ALT Alkaline Phosphatase Total Protein Albumin 04/06/24 04/06/24 04/06/24 12:00 12:26 16:48 Puncture Site Right radial ABG pH 7.245 L* ABG pCO2 61.8 H* ABG pO2 69.9 L ABG PO2/FiO2 Ratio 2.00 ABG HCO3 26.2 H ABG O2 Saturation 90.7 L ABG O2 Content 12.8 L ABG Base Excess -1.7 A-a Gradient 107.8 Oxyhemoglobin 91.7 Total Hemoglobin 9.9 L O2 Delivery Device Bipap O2 Liters/Min Not Reportable FiO2 35 Expiratory Pressure 8 Inspiratory Pressure 20 Sodium Potassium Chloride Carbon Dioxide Anion Gap BUN Creatinine Estim Creat Clear Calc Estimated GFR Glucose POC Capillary Glucose 106 H 97 Hemoglobin A1c Calcium Total Bilirubin AST ALT Alkaline Phosphatase Total Protein Albumin 04/06/24 04/07/24 04/07/24 21:37 04:16 05:27 Puncture Site Right radial ABG pH 7.251 L* ABG pCO2 68.9 H* ABG pO2 55.5 L ABG PO2/FiO2 Ratio 1.59 ABG HCO3 29.6 H ABG O2 Saturation 82.9 L* ABG O2 Content 12.4 L ABG Base Excess 1.3 A-a Gradient 114.0 Oxyhemoglobin 87.4 L* Total Hemoglobin 10.1 L O2 Delivery Device Other device O2 Liters/Min Not Reportable FiO2 35 Expiratory Pressure Inspiratory Pressure Sodium 146 H Potassium 4.6 Chloride 106 Carbon Dioxide 29 Anion Gap 11 BUN 58 H D Creatinine 2.61 H Estim Creat Clear Calc 25 Estimated GFR 18 L Glucose 112 H POC Capillary Glucose 141 H Hemoglobin A1c Calcium 9.3 Total Bilirubin 0.5 AST 18 ALT 11 Alkaline Phosphatase 94 Total Protein 7.0 Albumin 3.9 Quality VTE Prophylaxis VTE prophylaxis: mechanical ordered and pharmacologic ordered
[2024-04-07 07:50] LABS: Glucose Point of Care 113 mg/dl (65-105)
[2024-04-07] MEDS: GABAPENTIN 300 MG CAPSULE PO ×3 (08:10→17:00)
[2024-04-07] MEDS: ATORVASTATIN 40 MG TABLET 80 MG PO (08:10)
[2024-04-07] MEDS: busPIRone HCL 5 MG TABLET PO ×2 (08:11→17:00)
[2024-04-07] MEDS: APIXABAN 5 MG TABLET PO ×2 (08:11→20:45)
[2024-04-07] MEDS: EZETIMIBE 10 MG TABLET PO (08:11)
[2024-04-07] MEDS: METOPROLOL TARTRATE 12.5 MG TABLET PO ×2 (08:11→20:45)
[2024-04-07] MEDS: EMPAGLIFLOZIN 10 MG TABLET PO (08:11)
[2024-04-07] MEDS: ISOSORBIDE MONONITRATE 60 MG TAB.ER.24H 120 MG PO (08:11)
[2024-04-07] MEDS: ESCITALOPRAM OXALATE 10 MG TABLET 20 MG PO (08:11)
[2024-04-07] MEDS: allopurinoL 100 MG TABLET 300 MG PO (09:47)
--- NOTE | 2024-04-07 10:54 | P.PNNP_ITS ---
Progress Note: A&P Assessment and Plan (1) WILLIAN (acute kidney injury): Code(s): N17.9 - Acute kidney failure, unspecified Status: Acute Assessment and Plan: * better than baseline on admission * Creatinine is a little bit better today. * CK is normal * urine electrolytes / fractional excretion of urea are pre renal * suspect multifactorial etiology: * contrast exposure (CTA chest on 04/01) * use of IV diuretics since admission * use of Entresto since admission * relative hypotension (?) -- 90s - 100s systolic BP for a few hours on 04/03... * other(?) * Creat continues to improve. * check another creatinine tomorrow (2) Chronic kidney disease, stage IV (severe): Code(s): N18.4 - Chronic kidney disease, stage 4 (severe) Status: Chronic Assessment and Plan: * baseline creatinine runs ~ 1.8 - 2.3mg/dl for the last few years * however, was as low as 1.6mg/dl on outpatient labs on 03/21/24) * on admission, creatinine was 1.55mg/dl * presumably due to nephron mass (reported only 1 good kidney), diabetes, hypertension, vascular disease (CAD + hyperlipidemia) and known CHF with need for diuretic therapy * follows with Dr. Ortega for management of CKD (3) Acute hypoxic respiratory failure: Code(s): J96.01 - Acute respiratory failure with hypoxia Status: Acute Assessment and Plan: * hypoxia noted on presentation to ER * CTA chest negative for PE * CT of chest without evidence of fluid overload (on 04/01_ * however, initiated on IV lasix * although CXR (on 04/04) with mild pulmonary vascular congestion * continue supplemental oxygen as needed to maintain above 90% * possibly complicated by known history of DAMI * continued with BiPAP at night * breathing is improved gregorio with bipap when recumbant. * Pulmonary following (4) Atrial fibrillation with RVR: Code(s): I48.91 - Unspecified atrial fibrillation Status: Acute Assessment and Plan: * new onset/finding in ER * paroxysmal, as the patient is in NSR at this time * pulse 71 * on anticoagulation * Cardiology following (5) CHF (congestive heart failure): Code(s): I50.9 - Heart failure, unspecified Status: Acute Assessment and Plan: * known history * however, in spite of elevated BNP, seems compensated on admission * CT chest (04/01) without fluid overload on admission * however, recent CXR (04/04) with mild pulmonary vascular congestion * Lasix on hold * output not recorded. * recent Echo difficult to read due to image quality * Cardiology following (6) Diabetes: Code(s): E11.9 - Type 2 diabetes mellitus without complications Status: Chronic Assessment and Plan: * follow accu-cheks * glycemic control per hospitalist Subjective Date/time seen: 04/07/24 10:54 Interval history: pt feels okay. sitting up and eating breakfast. no sob. she had some sob last night improved with the bipap machine. eating okay Exam Narrative: WDWN female with high BMI in NAD skin no rash or sq nodules head ncat lungs clear bilaterally cor reg no rub abd BS+ nontender and soft ext no edema. Objective Data Vital Signs Vital Signs: Vital Signs - 24 hr 04/06/24 12:00 04/06/24 12:30 04/06/24 12:30 Temperature 97.4 F L Pulse Rate 71 66 Respiratory Rate 22 H Blood Pressure 148/64 H Pulse Oximetry 96 Oxygen Delivery BiPAP Oxygen Flow Rate 04/06/24 14:14 04/06/24 16:00 04/06/24 20:00 Temperature Pulse Rate 64 66 70 Respiratory Rate 23 H Blood Pressure Pulse Oximetry 100 Oxygen Delivery BiPAP Oxygen Flow Rate 04/06/24 21:00 04/06/24 21:33 04/06/24 23:02 Temperature 97.6 F Pulse Rate 70 70 68 Respiratory Rate 16 23 H Blood Pressure 147/64 H Pulse Oximetry 92 95 Oxygen Delivery BiPAP Oxygen Flow Rate 04/07/24 00:00 04/07/24 02:25 04/07/24 04:00 Temperature Pulse Rate 75 70 73 Respiratory Rate 14 Blood Pressure Pulse Oximetry 96 Oxygen Delivery BiPAP Oxygen Flow Rate 04/07/24 04:42 04/07/24 08:07 04/07/24 08:10 Temperature 97.6 F 97.4 F L Pulse Rate 72 73 Respiratory Rate 16 16 Blood Pressure 153/64 H 163/99 H Pulse Oximetry 100 97 93 Oxygen Delivery Room Air Oxygen Flow Rate 04/07/24 08:10 04/07/24 08:11 04/07/24 08:56 Temperature Pulse Rate 74 84 Respiratory Rate Blood Pressure Pulse Oximetry 99 Oxygen Delivery Nasal Cannula Oxygen Flow Rate 3 04/07/24 09:23 04/07/24 10:12 Temperature Pulse Rate Respiratory Rate Blood Pressure Pulse Oximetry 100 93 Oxygen Delivery Nasal Cannula Room Air Oxygen Flow Rate 2 Intake/Output Intake/Output: Intake & Output 04/04/24 04/05/24 04/06/24 04/07/24 23:59 23:59 23:59 23:59 Intake Total 562 443 2271 640 Output Total 0 500 Balance 889 339 7575 640 Meds/Results Medications: Active Medications Generic Name Dose Route Start Last Admin Trade Name Freq PRN Reason Stop Dose Admin Acetaminophen 650 mg 04/03/24 10:34 04/06/24 09:54 Acetaminophen 325 Mg Tablet PO 650 mg Q4H PRN Administration Headache Hydrocodone Bitart/Acetaminophen 1 tab 04/03/24 02:27 04/03/24 02:47 Hydrocodone/Acetaminophen (*Crx) 7.5-325 Mg Tablet PO 1 tab Q6H PRN Administration Pain Rated 7-10 Albuterol/Ipratropium 3 ml 04/02/24 00:22 Ipratropium 0.5 Mg/Albuterol Sulfate 2.5 Mg Ampul.Neb 3 Ml INHALATION Q4HRT PRN shortness of breath/Wheezing Allopurinol 300 mg 04/03/24 09:00 04/07/24 09:47 Allopurinol 100 Mg Tablet PO 300 mg QAM PILO Administration Allopurinol 200 mg 04/03/24 18:00 04/06/24 18:46 Allopurinol 100 Mg Tablet PO 200 mg QPM PILO Administration Apixaban 5 mg 04/03/24 21:00 04/07/24 08:11 Apixaban 5 Mg Tablet PO 5 mg Q12HR PILO Administration Atorvastatin Calcium 80 mg 04/03/24 09:00 04/07/24 08:10 Atorvastatin 40 Mg Tablet PO 80 mg DAILY PILO Administration Buspirone HCl 5 mg 04/02/24 17:00 04/07/24 08:11 Buspirone Hcl 5 Mg Tablet PO 5 mg BID PILO Administration Ezetimibe 10 mg 04/03/24 09:00 04/07/24 08:11 Ezetimibe 10 Mg Tablet PO 10 mg DAILY PILO Administration Empagliflozin 10 mg 04/03/24 09:00 04/07/24 08:11 Empagliflozin 10 Mg Tablet PO 10 mg DAILY [facility] Administration Escitalopram Oxalate 20 mg 04/03/24 09:00 04/07/24 08:11 Escitalopram Oxalate 10 Mg Tablet PO 20 mg DAILY [facility] Administration Furosemide 40 mg 04/06/24 17:00 Furosemide Inj 40 Mg/4 Ml Vial IV PUSH BID [facility] Gabapentin 300 mg 04/02/24 13:00 04/07/24 08:10 Gabapentin 300 Mg Capsule PO 300 mg TID [facility] Administration Insulin Aspart 4 - 8 units 04/06/24 17:00 04/07/24 09:47 Insulin Aspart (*Bkc) 100 Units/Ml SUB-Q Not Given TIDWM [facility] Protocol Insulin Aspart 2 - 4 units 04/06/24 21:00 04/06/24 23:25 Insulin Aspart (*Bkc) 100 Units/Ml SUB-Q Not Given HS [facility] Protocol Isosorbide Mononitrate 120 mg 04/03/24 09:00 04/07/24 08:11 Isosorbide Mononitrate 60 Mg Tab.Er.24h PO 120 mg DAILY [facility] Administration Levothyroxine Sodium 100 mcg 04/03/24 06:30 04/07/24 05:39 Levothyroxine Sodium 100 Mcg Tablet PO 100 mcg DAILY@0630 [facility] Administration Melatonin 5 mg 04/02/24 00:22 Melatonin 5 Mg Tablet PO HS PRN Insomnia Metoprolol Tartrate 12.5 mg 04/02/24 00:30 04/07/24 08:11 Metoprolol Tartrate 12.5 Mg Tablet PO 12.5 mg Q12HR [facility]ILO Administration Prochlorperazine Edisylate 10 mg 04/02/24 00:22 Prochlorperazine Edisylate 10 Mg/2 Ml Vial IV PUSH Q6H PRN Nausea And Vomiting Sacubitril/Valsartan 1 tab 04/02/24 21:00 04/05/24 08:13 Sacubitril/Valsartan 97-103 Mg Tablet PO 1 tab Q12HR PILO Administration Radiology Results: ITS Impressions Chest CTA 04/01/24 19:46 IMPRESSION: No CT evidence of acute pulmonary embolus. No acute process detected in the chest. Venous Doppler Study 04/01/24 19:59 IMPRESSION: Patent bilateral lower extremity veins. No evidence of deep venous thrombosis. Renal Ultrasound 04/05/24 14:58 IMPRESSION: 1. Normal right kidney. 2. Severe atrophy of left kidney. Chest X-Ray 04/06/24 12:47 IMPRESSION: 1. Likely congestive heart failure with cardiomegaly, pulmonary vascular congestion and mild pulmonary edema in the lower lung zones. Labs Labs: Laboratory Results - last 24 hr 04/06/24 04/06/24 04/06/24 04:41 12:00 12:26 WBC RBC Hgb Hct MCV MCH MCHC RDW Plt Count MPV Immature Gran % (Auto) Neut % (Auto) Lymph % (Auto) Mcintosh % (Auto) Eos % (Auto) Baso % (Auto) Lymph # (Auto) Mcintosh # (Auto) Eos # (Auto) Baso # (Auto) Abs Immat Gran (auto) Absolute Neuts (auto) Absolute Nucleated RBC Nucleated RBC % Puncture Site Right radial ABG pH 7.245 L* ABG pCO2 61.8 H* ABG pO2 69.9 L ABG PO2/FiO2 Ratio 2.00 ABG HCO3 26.2 H ABG O2 Saturation 90.7 L ABG O2 Content 12.8 L ABG Base Excess -1.7 A-a Gradient 107.8 Oxyhemoglobin 91.7 Total Hemoglobin 9.9 L O2 Delivery Device Bipap O2 Liters/Min Not Reportable FiO2 35 Expiratory Pressure 8 Inspiratory Pressure 20 Sodium Potassium Chloride Carbon Dioxide Anion Gap BUN Creatinine Estim Creat Clear Calc Estimated GFR Glucose POC Capillary Glucose 106 H Hemoglobin A1c 7.2 H Calcium Total Bilirubin AST ALT Alkaline Phosphatase Total Protein Albumin 04/06/24 04/06/24 04/07/24 16:48 21:37 04:16 WBC RBC Hgb Hct MCV MCH MCHC RDW Plt Count MPV Immature Gran % (Auto) Neut % (Auto) Lymph % (Auto) Mcintosh % (Auto) Eos % (Auto) Baso % (Auto) Lymph # (Auto) Mcintosh # (Auto) Eos # (Auto) Baso # (Auto) Abs Immat Gran (auto) Absolute Neuts (auto) Absolute Nucleated RBC Nucleated RBC % Puncture Site Right radial ABG pH 7.251 L* ABG pCO2 68.9 H* ABG pO2 55.5 L ABG PO2/FiO2 Ratio 1.59 ABG HCO3 29.6 H ABG O2 Saturation 82.9 L* ABG O2 Content 12.4 L ABG Base Excess 1.3 A-a Gradient 114.0 Oxyhemoglobin 87.4 L* Total Hemoglobin 10.1 L O2 Delivery Device Other device O2 Liters/Min Not Reportable FiO2 35 Expiratory Pressure Inspiratory Pressure Sodium Potassium Chloride Carbon Dioxide Anion Gap BUN Creatinine Estim Creat Clear Calc Estimated GFR Glucose POC Capillary Glucose 97 141 H Hemoglobin A1c Calcium Total Bilirubin AST ALT Alkaline Phosphatase Total Protein Albumin 04/07/24 04/07/24 05:27 07:42 WBC 7.6 RBC 3.32 L Hgb 10.0 L Hct 33.7 L MCV 101.5 H MCH 30.1 MCHC 29.7 L RDW 14.4 Plt Count 266 MPV 9.7 Immature Gran % (Auto) 0.4 Neut % (Auto) 79.1 H Lymph % (Auto) 10.2 L Mcintosh % (Auto) 5.9 Eos % (Auto) 3.9 Baso % (Auto) 0.5 Lymph # (Auto) 0.78 L Mcintosh # (Auto) 0.5 Eos # (Auto) 0.3 Baso # (Auto) 0.0 Abs Immat Gran (auto) 0.03 Absolute Neuts (auto) 6.0 Absolute Nucleated RBC 0.000 Nucleated RBC % 0.0 Puncture Site ABG pH ABG pCO2 ABG pO2 ABG PO2/FiO2 Ratio ABG HCO3 ABG O2 Saturation ABG O2 Content ABG Base Excess A-a Gradient Oxyhemoglobin Total Hemoglobin O2 Delivery Device O2 Liters/Min FiO2 Expiratory Pressure Inspiratory Pressure Sodium 146 H Potassium 4.6 Chloride 106 Carbon Dioxide 29 Anion Gap 11 BUN 58 H D Creatinine 2.61 H Estim Creat Clear Calc 25 Estimated GFR 18 L Glucose 112 H POC Capillary Glucose 113 H Hemoglobin A1c Calcium 9.3 Total Bilirubin 0.5 AST 18 ALT 11 Alkaline Phosphatase 94 Total Protein 7.0 Albumin 3.9
[2024-04-07 11:59] LABS: Glucose Point of Care 122 mg/dl (65-105)
--- NOTE | 2024-04-07 16:50 | P.PNPL_ITS ---
Progress Note: A&P Assessment and Plan (1) Hypercapnic respiratory failure: Code(s): J96.92 - Respiratory failure, unspecified with hypercapnia Status: Acute Assessment and Plan: A 64-year-old female with morbid obesity and a history of sleep apnea, previously managed with CPAP therapy until a device malfunction approximately six weeks ago, presented with hypoxemia. She was diagnosed with atrial fibrillation with rapid ventricular response and has since received treatment, returning to normal sinus rhythm. Arterial blood gas analysis indicated acute respiratory acidosis, with a pH around 7.26 and pCO2 exceeding 60 mmHg. It is noteworthy that there was no elevation in chronic bicarbonate levels to suggest chronic hypercapnic respiratory failure. The acute respiratory acidosis is likely related to her congestive heart failure and atrial fibrillation. On physical examination, her lungs were clear with no wheezing. Adjustments were made to initial BiPAP settings and patient used BiPAP support night, but not much Monday night. On today's exam she is fully awake with clear lungs. ABG today showed more hypercapnia. Plan: Change AVAPS settings to increase TV from 500 to 550, increase EPAP 9, continue other settings. Uuse with all sleep including naps. Repeat ABG in am. While awake, O2 by nasal cannula at 2 L/min. Respiratory therapy department can arrange an AVAPS machine for home use. Her CPAP is from 2017, past end-of-life. She can choose if she wants to follow up in our pulmonary office after discharge, or she can establish care with Dr Prieto @[facility], has new appt this Monday. Previously saw pulmonary group at [facility], not for several years. (2) Acute hypoxic respiratory failure: Code(s): J96.01 - Acute respiratory failure with hypoxia Status: Acute Assessment and Plan: Saturation is adequate on 2 L/min. ABG this am on 35% showed low pO2 55 and saturation 83%., likely not reliable. The remainder of her saturations have been in the 90s on 2 L. (3) Atrial fibrillation with RVR: Code(s): I48.91 - Unspecified atrial fibrillation Status: Acute Assessment and Plan: Now in NSR. Plans noted per lumber racker. (4) Acute on chronic systolic heart failure: Code(s): I50.23 - Acute on chronic systolic (congestive) heart failure Status: Acute Assessment and Plan: She is off Entresto and Lasix with elevated BUN and creatinine,68/3.46, rising since admission. CXR today shows pulmonary vascular redistribution, making me want to give her diuretic, but that is not a plan for today. She is off these medications, now BUN and creatinine are improved. She had elevated proBNP trending up; Mar 24= 2459, Apr 0399=[id number], Apr [id number]. Subjective Date/time seen: 04/07/24 16:50 Interval history: 04/07/24; The patient used AVAPS overnight, and again this afternoon for about 2.5 hours. She says that AVAPS is more comfortable than the BiPAP however she did not have dreams, nor was she really rested on waking. ABG today was not much improved, however her kidneys have started to function better. ABG after AVAPS overnight pH 7.25, pCO2 68, PO2 55, HCO3 29.6, saturation 82.9% on 35% 04/06/24; Abigail Monreal is 64 years old, never smoker, has acute hypercapnic hypoxemic respiratory failure associated with CHF and new atrial fib with RVR; she had a repeat ABG today which was worse compared to admission. She only wore BiPAP 20/8 & 35% a few hours last night. ABG 04/06; 35%; pH 7.177; pCO2 78, pO2 76, HCO3 28.3, saturation 95% ABG 04/06; BiPAP 20/8 & 35%; pH 7.24; pCO2 66, pO2 69, HCO3 26, sat 90.7% - increased A-a gradient She is alert, says that she does not feel too bad, is more short of breath and has had increased weight especially due to edema prior to admission. She was treated with CPAP or maybe BiPAP 21/12 since 2016, was seeing pulmonary doctors at [facility], no follow up for years. She has an appointment with Dr Prieto, a new animation artist at [facility], April 11 at 10:00 a.m., however says that if she ever needs admission, she plans to come to [place]. She decided that she wants to follow up here for sleep and pulmonary care. 64 year old woman without smoking history of lung disease was admitted 04/01/24 with shortness of breath and palpitations. Her CPAP broke 6 weeks prior to admission, has not been using it. She came in with swollen feet and increased dyspnea. Was in afib with RVR and CHF with acute on chronic renal failure. Reports 50 lb weight gain in the last year. PMH: CAD, PCI, CHFrEF, DAMI on PAP 2016, HTN, DM type 2, hyperlipidemia, CKD with acute worsening. DATA * 04/01/2024, CTA - No CT evidence of acute pulmonary embolus. No acute process detected in the chest. * 04/06/2024 CXR ; Likely congestive heart failure with cardiomegaly, pulmonary vascular congestion and mild pulmonary edema in the lower lung zones. * 04/02/24; renal USG; Normal right kidney. Severe atrophy of left kidney. * 04/01/2024; LE Venous Dopplers; Patent bilateral lower extremity veins. No evidence of deep venous thrombosis. * 04/02/24; echo; Very difficult echocardiogram even with Definity contrast image quality was quite poor. Impression of mildly depressed left ventricular systolic function. 3. Inability to accurately quantify ejection fraction because of poor image quality. 4. No obvious valvular dysfunction. 5. Normal sinus rhythm, exam was ordered because of atrial fib. * 04/06/24; BMP 141 105 68 (BUN was 46 @admission) 4.8 29 3.46 ( creat 1.55 @admission) Review of Systems Review of Systems: All systems reviewed & are unremarkable except as noted in HPI and below Exam Narrative: GEN: Alert, oriented, wearing nasal cannula while reclining in bed, ready to sit up and eat dinner. On 2 L, sat = 93-95%. HEENT: pupils are equal, EOMI, symmetrical face; oral membranes moist, Mallampati II airway NECK: Trachea is midline CHEST: Equal air entry, symmetric excursion, clear breath sounds CV: Regular S1S2 no m/g/r Extremities : no clubbing, cyanosis, or edema PSYCH: normal thought and speech, gait is not tested. Objective Data Vital Signs Vital Signs: Vital Signs - 24 hr 04/06/24 20:00 04/06/24 21:00 04/06/24 21:33 Temperature 36.4 C Pulse Rate 70 70 70 Respiratory Rate 16 Blood Pressure 147/64 H Pulse Oximetry 92 Oxygen Delivery Oxygen Flow Rate 04/06/24 23:02 04/07/24 00:00 04/07/24 02:25 Temperature Pulse Rate 68 75 70 Respiratory Rate 23 H 14 Blood Pressure Pulse Oximetry 95 96 Oxygen Delivery BiPAP BiPAP Oxygen Flow Rate 04/07/24 04:00 04/07/24 04:42 04/07/24 08:07 Temperature 36.4 C 36.3 C L Pulse Rate 73 72 73 Respiratory Rate 16 16 Blood Pressure 153/64 H 163/99 H Pulse Oximetry 100 97 Oxygen Delivery Oxygen Flow Rate 04/07/24 08:10 04/07/24 08:10 04/07/24 08:11 Temperature Pulse Rate 74 84 Respiratory Rate Blood Pressure Pulse Oximetry 93 Oxygen Delivery Room Air Oxygen Flow Rate 04/07/24 08:56 04/07/24 09:23 04/07/24 10:12 Temperature Pulse Rate Respiratory Rate Blood Pressure Pulse Oximetry 99 100 93 Oxygen Delivery Nasal Cannula Nasal Cannula Room Air Oxygen Flow Rate 3 2 04/07/24 12:00 04/07/24 13:01 04/07/24 15:52 Temperature Pulse Rate 74 71 68 Respiratory Rate 24 H 18 Blood Pressure Pulse Oximetry 100 94 Oxygen Delivery BiPAP BiPAP Oxygen Flow Rate 04/07/24 16:00 Temperature Pulse Rate 71 Respiratory Rate Blood Pressure Pulse Oximetry Oxygen Delivery Oxygen Flow Rate Intake/Output Intake/Output: Intake & Output 04/04/24 04/05/24 04/06/24 04/07/24 23:59 23:59 23:59 23:59 Intake Total 650 671 8042 880 Output Total 0 500 Balance 064 781 9942 880 Meds/Results Medications: Active Medications Generic Name Dose Route Start Last Admin Trade Name Freq PRN Reason Stop Dose Admin Acetaminophen 650 mg 04/03/24 10:34 04/06/24 09:54 Acetaminophen 325 Mg Tablet PO 650 mg Q4H PRN Administration Headache Hydrocodone Bitart/Acetaminophen 1 tab 04/03/24 02:27 04/03/24 02:47 Hydrocodone/Acetaminophen (*Crx) 7.5-325 Mg Tablet PO 1 tab Q6H PRN Administration Pain Rated 7-10 Albuterol/Ipratropium 3 ml 04/02/24 00:22 Ipratropium 0.5 Mg/Albuterol Sulfate 2.5 Mg Ampul.Neb 3 Ml INHALATION Q4HRT PRN shortness of breath/Wheezing Allopurinol 300 mg 04/03/24 09:00 04/07/24 09:47 Allopurinol 100 Mg Tablet PO 300 mg QAM PILO Administration Allopurinol 200 mg 04/03/24 18:00 04/06/24 18:46 Allopurinol 100 Mg Tablet PO 200 mg QPM PILO Administration Apixaban 5 mg 04/03/24 21:00 04/07/24 08:11 Apixaban 5 Mg Tablet PO 5 mg Q12HR PILO Administration Atorvastatin Calcium 80 mg 04/03/24 09:00 04/07/24 08:10 Atorvastatin 40 Mg Tablet PO 80 mg DAILY PILO Administration Buspirone HCl 5 mg 04/02/24 17:00 04/07/24 08:11 Buspirone Hcl 5 Mg Tablet PO 5 mg BID PILO Administration Ezetimibe 10 mg 04/03/24 09:00 04/07/24 08:11 Ezetimibe 10 Mg Tablet PO 10 mg DAILY PILO Administration Empagliflozin 10 mg 04/03/24 09:00 04/07/24 08:11 Empagliflozin 10 Mg Tablet PO 10 mg DAILY PILO Administration Escitalopram Oxalate 20 mg 04/03/24 09:00 04/07/24 08:11 Escitalopram Oxalate 10 Mg Tablet PO 20 mg DAILY PILO Administration Furosemide 40 mg 04/06/24 17:00 Furosemide Inj 40 Mg/4 Ml Vial IV PUSH BID PILO Gabapentin 300 mg 04/02/24 13:00 04/07/24 12:24 Gabapentin 300 Mg Capsule PO 300 mg TID PILO Administration Insulin Aspart 4 - 8 units 04/06/24 17:00 04/07/24 12:22 Insulin Aspart (*Bkc) 100 Units/Ml SUB-Q Not Given TIDWM [facility] Protocol Insulin Aspart 2 - 4 units 04/06/24 21:00 04/06/24 23:25 Insulin Aspart (*Bkc) 100 Units/Ml SUB-Q Not Given HS [facility] Protocol Isosorbide Mononitrate 120 mg 04/03/24 09:00 04/07/24 08:11 Isosorbide Mononitrate 60 Mg Tab.Er.24h PO 120 mg DAILY PILO Administration Levothyroxine Sodium 100 mcg 04/03/24 06:30 04/07/24 05:39 Levothyroxine Sodium 100 Mcg Tablet PO 100 mcg DAILY@0630 [facility] Administration Melatonin 5 mg 04/02/24 00:22 Melatonin 5 Mg Tablet PO HS PRN Insomnia Metoprolol Tartrate 12.5 mg 04/02/24 00:30 04/07/24 08:11 Metoprolol Tartrate 12.5 Mg Tablet PO 12.5 mg Q12HR PILO Administration Prochlorperazine Edisylate 10 mg 04/02/24 00:22 Prochlorperazine Edisylate 10 Mg/2 Ml Vial IV PUSH Q6H PRN Nausea And Vomiting Sacubitril/Valsartan 1 tab 04/02/24 21:00 04/05/24 08:13 Sacubitril/Valsartan 97-103 Mg Tablet PO 1 tab Q12HR PILO Administration Radiology Results: ITS Impressions Chest CTA 04/01/24 19:46 IMPRESSION: No CT evidence of acute pulmonary embolus. No acute process detected in the chest. Venous Doppler Study 04/01/24 19:59 IMPRESSION: Patent bilateral lower extremity veins. No evidence of deep venous thrombosis. Renal Ultrasound 04/05/24 14:58 IMPRESSION: 1. Normal right kidney. 2. Severe atrophy of left kidney. Chest X-Ray 04/06/24 12:47 IMPRESSION: 1. Likely congestive heart failure with cardiomegaly, pulmonary vascular congestion and mild pulmonary edema in the lower lung zones. Labs Labs: Laboratory Results - last 24 hr 04/06/24 04/06/24 04/06/24 04:41 16:48 21:37 WBC RBC Hgb Hct MCV MCH MCHC RDW Plt Count MPV Immature Gran % (Auto) Neut % (Auto) Lymph % (Auto) [place] % (Auto) Eos % (Auto) Baso % (Auto) Lymph # (Auto) [place] # (Auto) Eos # (Auto) Baso # (Auto) Abs Immat Gran (auto) Absolute Neuts (auto) Absolute Nucleated RBC Nucleated RBC % Puncture Site ABG pH ABG pCO2 ABG pO2 ABG PO2/FiO2 Ratio ABG HCO3 ABG O2 Saturation ABG O2 Content ABG Base Excess A-a Gradient Oxyhemoglobin Total Hemoglobin O2 Delivery Device O2 Liters/Min FiO2 Sodium Potassium Chloride Carbon Dioxide Anion Gap BUN Creatinine Estim Creat Clear Calc Estimated GFR Glucose POC Capillary Glucose 97 141 H Hemoglobin A1c 7.2 H Calcium Total Bilirubin AST ALT Alkaline Phosphatase Total Protein Albumin 04/07/24 04/07/24 04/07/24 04:16 05:27 07:42 WBC 7.6 RBC 3.32 L Hgb 10.0 L Hct 33.7 L MCV 101.5 H MCH 30.1 MCHC 29.7 L RDW 14.4 Plt Count 266 MPV 9.7 Immature Gran % (Auto) 0.4 Neut % (Auto) 79.1 H Lymph % (Auto) 10.2 L [place] % (Auto) 5.9 Eos % (Auto) 3.9 Baso % (Auto) 0.5 Lymph # (Auto) 0.78 L [place] # (Auto) 0.5 Eos # (Auto) 0.3 Baso # (Auto) 0.0 Abs Immat Gran (auto) 0.03 Absolute Neuts (auto) 6.0 Absolute Nucleated RBC 0.000 Nucleated RBC % 0.0 Puncture Site Right radial ABG pH 7.251 L* ABG pCO2 68.9 H* ABG pO2 55.5 L ABG PO2/FiO2 Ratio 1.59 ABG HCO3 29.6 H ABG O2 Saturation 82.9 L* ABG O2 Content 12.4 L ABG Base Excess 1.3 A-a Gradient 114.0 Oxyhemoglobin 87.4 L* Total Hemoglobin 10.1 L O2 Delivery Device Other device O2 Liters/Min Not Reportable FiO2 35 Sodium 146 H Potassium 4.6 Chloride 106 Carbon Dioxide 29 Anion Gap 11 BUN 58 H D Creatinine 2.61 H Estim Creat Clear Calc 25 Estimated GFR 18 L Glucose 112 H POC Capillary Glucose 113 H Hemoglobin A1c Calcium 9.3 Total Bilirubin 0.5 AST 18 ALT 11 Alkaline Phosphatase 94 Total Protein 7.0 Albumin 3.9 04/07/24 11:55 WBC RBC Hgb Hct MCV MCH MCHC RDW Plt Count MPV Immature Gran % (Auto) Neut % (Auto) Lymph % (Auto) [place] % (Auto) Eos % (Auto) Baso % (Auto) Lymph # (Auto) [place] # (Auto) Eos # (Auto) Baso # (Auto) Abs Immat Gran (auto) Absolute Neuts (auto) Absolute Nucleated RBC Nucleated RBC % Puncture Site ABG pH ABG pCO2 ABG pO2 ABG PO2/FiO2 Ratio ABG HCO3 ABG O2 Saturation ABG O2 Content ABG Base Excess A-a Gradient Oxyhemoglobin Total Hemoglobin O2 Delivery Device O2 Liters/Min FiO2 Sodium Potassium Chloride Carbon Dioxide Anion Gap BUN Creatinine Estim Creat Clear Calc Estimated GFR Glucose POC Capillary Glucose 122 H Hemoglobin A1c Calcium Total Bilirubin AST ALT Alkaline Phosphatase Total Protein Albumin
[2024-04-07] MEDS: allopurinoL 100 MG TABLET 200 MG PO (17:01)
[2024-04-07 17:19] LABS: Glucose Point of Care 123 mg/dl (65-105)
[2024-04-07] MEDS: INSULIN ASPART (*BKC) 100 UNITS/ML SUB-Q (20:46)
[2024-04-07 21:25] LABS: Glucose Point of Care 205 mg/dl (65-105)
[2024-04-08] VITALS (17 sets, daily range): BP systolic 137–168; BP diastolic 54–81; PULSE 70–84; RESP 16–24; TEMP 36.1–37.1; O2SAT 93–100
[2024-04-08 04:53] LABS: Basophils Percent Auto 0.4 % (0.2-1.2); Eosinophils Absolute Auto 0.3 K/mm3 (0-0.3); Eosinophils Percent Auto 3.5 % (0-4.4); Hematocrit 31.5 % (37.0-47.0); Hemoglobin 9.3 g/dL (12.0-15.0); Immature Granulocyte Absolute 0.03 K/mm3 (0.00-0.031); Immature Granulocyte Percent A 0.4 % (0-0.5); Lymphocytes Absolute Auto 0.99 K/mm3 (0.9-3.2); Lymphocytes Percent Auto 12.9 % (18.3-44.2); Mean Corpuscular HGB Conc 29.5 g/dl (32-36); Mean Corpuscular Hemoglobin 29.8 pg (26-34); Mean Platelet Volume 9.3 fl (7.4-10.4); Monocytes Absolute Auto 0.5 K/mm3 (0.1-0.6); Monocytes Percent Auto 6.8 % (2.6-8.5); Neutrophils Absolute Auto 5.8 K/mm3 (1.3-6.7); Platelet Count Result 213 k/mm3 (150-375); Red Blood Count 3.12 M/mm3 (4.2-5.4); Red Cell Distribution Width 14.5 % (11.5-14.5); White Blood Count 7.7 K/mm3 (4.5-10.0)
[2024-04-08 05:17] LABS: Alanine Aminotransferase 11 U/L (6-35); Albumin Level 3.4 g/dL (3.5-5.1); Alkaline Phosphatase 90 U/L (38-126); Anion Gap 8 mmol/L (4-12); Aspartate Amino Transferase 17 U/L (14-36); Bilirubin,Total 0.4 mg/dL (0.2-1.3); Blood Urea Nitrogen 51 mg/dL (7-17); Carbon Dioxide 29 mmol/L (22-30); Chloride 109 mmol/L (98-107); Estimated CRCL calculation 30 ml/min; Estimated Glomerular Filt Rate 22; Glucose 117 mg/dL (65-110); Phosphorus 4.7 mg/dL (2.5-4.5); Potassium 5.1 mmol/L (3.4-5.0); Sodium 146 mmol/L (137-145)
[2024-04-08 05:37] LABS: Alveolar/Arterial O2 Gradient 117.6 mmHg; Base Excess ABG -0.2 mEq/l (+/-2.0); Fractional Inspired Oxygen 35 %; HCO3 ABG 28.3 mEq/l (22.0-26.0); Oxygen Content ABG 12.9 %vol (16.0-22.0); PO2 ABG 53.8 mmHg (80.0-100.0); PO2 FiO2 Ratio Arterial Blood 1.54 %; Total Hemoglobin 10.9 g/dL (12.0-18.0)
[2024-04-08] MEDS: LEVOTHYROXINE SODIUM 100 MCG TABLET PO (05:46)
[2024-04-08 05:47] LABS: PCO2 ABG 67.2 mmHg (35.0-45.0); pH ABG 7.242 (7.350-7.450)
[2024-04-08 05:48] LABS: Modified Allen's Test Pass; Oxygen Saturation ABG 81.2 % (95.0-100.0); Oxyhemoglobin 84.3 % THb (90.0-100.0); Site Drawn LEFT RADIAL
[2024-04-08 05:49] LABS: Device OTHER DEVICE
[2024-04-08 05:51] LABS: Expiratory Pressure 8 cmH2O
--- NOTE | 2024-04-08 07:29 | P.PNIM_ITS ---
Progress Note: A&P Assessment and Plan (1) Atrial fibrillation with RVR: Code(s): I48.91 - Unspecified atrial fibrillation Status: Acute Assessment and Plan: * continue eliquis and metoprolol * Cardiology following * Echo shown LVEF 40-45% 3/ * No change to current treatment plan 04/08/24: * No change to current treatment plan (2) Acute hypoxic respiratory failure: Code(s): J96.01 - Acute respiratory failure with hypoxia Status: Acute Assessment and Plan: * CTA negative for PE * Pulmonology consulted * ABG today showing pH 7.177, pCO2 78.2, pO2 76.5, Bicarb 28.3. Patient was placed on continuous bipap with follow up ABG showing 7.254, PCO2 61.8, pO2 69.9, bicarb 26.2 * CXR showing congestive heart failure with cardiomegaly, pulmonary vascular congestion and mild pulmonary edema in the lower lung zones * Hx of DAMI wears Cpap at bedtime however her unit is not working at home. ??? considering her hypercapnia she would benefit from Bipap in AVAPS instead of Cpap. * TTE shown LVEF of 40-45% 3/ * Blood gas today shown pH 7.251, pCO2 68.9, pO2 55.5, Bicarb 29.6 * She is still not corrected and will need to be placed back on Bipap, Nursing notified to call results to battery tester * She will likely need adjustments to her AVAPS mode, defer to pulmonology * She will need Bipap/AVAPS machine before discharging 04/08/24: * Blood gas pH 7.308, pC02 58.6, p02 117.7, HC02 28.7, 02 13.4, oxyhemoglobin 97.7, and total hemoglobin 9.6. * Changes were made to BiPAP AVAPS to decrease the alveolar ventilation in order to correct hypercapnia. Currently the patient is on BiPAP AVAPS 500, EPAP 4, maximum pressure 30, FiO2 unchanged 35%. * Patient to wear 02@4 liters nasal cannula with not wearing the BIPAP. * Pulmonology following. (3) CHF (congestive heart failure): Code(s): I50.9 - Heart failure, unspecified Status: Acute Assessment and Plan: * Echo shown LVEF of 40-45% per Cardiology notation * Continue Jardiance and Metoprolol * Entresto and Lasix on hold * CXR showing congestive heart failure with cardiomegaly, pulmonary vascular congestion and mild pulmonary edema in the lower lung zones 04/07 * Continue to hold Lasix and Entresto 04/08/24: * Continue to hold Lasix and Entresto (4) WILLIAN (acute kidney injury): Code(s): N17.9 - Acute kidney failure, unspecified Status: Acute Assessment and Plan: * Creatinine 3.46 today, EGF 13 * Lasix and Entresto on hold * Avoid nephrotoxic medication * Nephrology following * Baseline creatinine 1.80-2.30 * Continue to trend 04/07 * Creatinine 2.61 * Continue to hold Lasix and Entresto * Avoid nephrotoxic medication * Nephrology following * Continue to trend 04/08/24: * Creatinine 2.19, improving. * Continue to hold Lasix and Entresto * Avoid nephrotoxic medication * Nephrology following * Continue to trend (5) Hypothyroidism: Code(s): E03.9 - Hypothyroidism, unspecified Status: Acute Assessment and Plan: * Continue synthroid 04/07 * No change to current treatment plan 04/08/24: * No change to current treatment plan (6) Diabetes: Code(s): E11.9 - Type 2 diabetes mellitus without complications Status: Chronic Assessment and Plan: * Blood sugars ranging 102-153 * Will obtain Hgb A1C * Accu checks AC/HS * High dose SSI ordered * hypoglycemic protocol in place * Diabetic diet ordered 04/07 * No change to current treatment plan 04/08/24: * Blood sugars ranging 121-171. * HgbA1C 7.2%. * Accu checks AC/HS * High dose SSI ordered * hypoglycemic protocol in place Subjective Date/time seen: 04/08/24 07:29 Interval history: Patient lying in bed. Patient stated that she wore her AVAP from 9:30 last night until around 6:30 this morning. Patient denies chest pain, palpitations, headache, dizziness, nausea, or vomiting. Patient states that her CPAP was broken for about 6 weeks at home. Review of Systems Review of Systems: All systems reviewed & are unremarkable except as noted in HPI and below Exam Const: General: comfortable and no acute distress Resp: Effort & Inspection: normal respiratory effort Auscultation: clear to auscultation bilaterally Cardio: Rate: regular rate Rhythm: regular rhythm Other: Telemetry- SR 78 GI: GI Palp: Yes Soft to palpation Auscultation: normal bowel sounds Neuro: Speech: normal speech Extrem: General: no pedal edema Psych: Mental Status: mental status grossly normal Affect: normal affect Objective Data Vital Signs Vital Signs: Vital Signs - 24 hr 04/07/24 08:07 04/07/24 08:10 04/07/24 08:10 Temperature 97.4 F L Pulse Rate 73 74 Respiratory Rate 16 Blood Pressure 163/99 H Pulse Oximetry 97 93 Oxygen Delivery Room Air Oxygen Flow Rate 04/07/24 08:11 04/07/24 08:56 04/07/24 09:23 Temperature Pulse Rate 84 Respiratory Rate Blood Pressure Pulse Oximetry 99 100 Oxygen Delivery Nasal Cannula Nasal Cannula Oxygen Flow Rate 3 2 04/07/24 10:12 04/07/24 12:00 04/07/24 13:01 Temperature Pulse Rate 74 71 Respiratory Rate 24 H Blood Pressure Pulse Oximetry 93 100 Oxygen Delivery Room Air BiPAP Oxygen Flow Rate 04/07/24 15:52 04/07/24 16:00 04/07/24 16:55 Temperature 98.1 F Pulse Rate 68 71 77 Respiratory Rate 18 18 Blood Pressure 144/68 H Pulse Oximetry 94 95 Oxygen Delivery BiPAP Oxygen Flow Rate 04/07/24 17:00 04/07/24 19:50 04/07/24 20:00 Temperature 97.9 F Pulse Rate 79 Respiratory Rate 20 Blood Pressure 110/87 Pulse Oximetry 95 99 99 Oxygen Delivery Room Air Room Air Oxygen Flow Rate 04/07/24 20:00 04/07/24 20:45 04/07/24 21:32 Temperature Pulse Rate 85 74 75 Respiratory Rate 15 Blood Pressure Pulse Oximetry 97 Oxygen Delivery BiPAP Oxygen Flow Rate 04/08/24 00:00 04/08/24 00:31 04/08/24 02:31 Temperature Pulse Rate 81 70 75 Respiratory Rate 18 16 Blood Pressure Pulse Oximetry 98 Oxygen Delivery BiPAP BiPAP Oxygen Flow Rate 04/08/24 03:55 04/08/24 04:00 Temperature 97.4 F L Pulse Rate 70 70 Respiratory Rate 17 Blood Pressure 137/66 Pulse Oximetry 100 Oxygen Delivery Oxygen Flow Rate Intake/Output Intake/Output: Intake & Output 04/05/24 04/06/24 04/07/2403/25 23:59 23:59 23:59 23:59 Intake Total 720 1440 880 Output Total 500 200 Balance 220 1440 880 -200 Meds/Results Medications: Active Medications Generic Name Dose Route Start Last Admin Trade Name Freq PRN Reason Stop Dose Admin Acetaminophen 650 mg 04/03/24 10:34 04/06/24 09:54 Acetaminophen 325 Mg Tablet PO 650 mg Q4H PRN Administration Headache Hydrocodone Bitart/Acetaminophen 1 tab 04/03/24 02:27 04/03/24 02:47 Hydrocodone/Acetaminophen (*Crx) 7.5-325 Mg Tablet PO 1 tab Q6H PRN Administration Pain Rated 7-10 Albuterol/Ipratropium 3 ml 04/02/24 00:22 Ipratropium 0.5 Mg/Albuterol Sulfate 2.5 Mg Ampul.Neb 3 Ml INHALATION Q4HRT PRN shortness of breath/Wheezing Allopurinol 300 mg 04/03/24 09:00 04/07/24 09:47 Allopurinol 100 Mg Tablet PO 300 mg QAM PILO Administration Allopurinol 200 mg 04/03/24 18:00 04/07/24 17:01 Allopurinol 100 Mg Tablet PO 200 mg QPM PILO Administration Apixaban 5 mg 04/03/24 21:00 04/07/24 20:45 Apixaban 5 Mg Tablet PO 5 mg Q12HR PILO Administration Atorvastatin Calcium 80 mg 04/03/24 09:00 04/07/24 08:10 Atorvastatin 40 Mg Tablet PO 80 mg DAILY PILO Administration Buspirone HCl 5 mg 04/02/24 17:00 04/07/24 17:00 Buspirone Hcl 5 Mg Tablet PO 5 mg BID PILO Administration Ezetimibe 10 mg 04/03/24 09:00 04/07/24 08:11 Ezetimibe 10 Mg Tablet PO 10 mg DAILY PILO Administration Empagliflozin 10 mg 04/03/24 09:00 04/07/24 08:11 Empagliflozin 10 Mg Tablet PO 10 mg DAILY PILO Administration Escitalopram Oxalate 20 mg 04/03/24 09:00 04/07/24 08:11 Escitalopram Oxalate 10 Mg Tablet PO 20 mg DAILY PILO Administration Furosemide 40 mg 04/06/24 17:00 Furosemide Inj 40 Mg/4 Ml Vial IV PUSH BID PILO Gabapentin 300 mg 04/02/24 13:00 04/07/24 17:00 Gabapentin 300 Mg Capsule PO 300 mg TID PILO Administration Insulin Aspart 4 - 8 units 04/06/24 17:00 04/07/24 17:29 Insulin Aspart (*Bkc) 100 Units/Ml SUB-Q Not Given TIDWM [facility] [place] Protocol Insulin Aspart 2 - 4 units 04/06/24 21:00 04/07/24 20:46 Insulin Aspart (*Bkc) 100 Units/Ml SUB-Q 2 units HS PILO Administration Protocol Isosorbide Mononitrate 120 mg 04/03/24 09:00 04/07/24 08:11 Isosorbide Mononitrate 60 Mg Tab.Er.24h PO 120 mg DAILY PILO Administration Levothyroxine Sodium 100 mcg 04/03/24 06:30 04/08/24 05:46 Levothyroxine Sodium 100 Mcg Tablet PO 100 mcg DAILY@0630 PILO Administration Melatonin 5 mg 04/02/24 00:22 Melatonin 5 Mg Tablet PO HS PRN Insomnia Metoprolol Tartrate 12.5 mg 04/02/24 00:30 04/07/24 20:45 Metoprolol Tartrate 12.5 Mg Tablet PO 12.5 mg Q12HR PILO Administration Prochlorperazine Edisylate 10 mg 04/02/24 00:22 Prochlorperazine Edisylate 10 Mg/2 Ml Vial IV PUSH Q6H PRN Nausea And Vomiting Sacubitril/Valsartan 1 tab 04/02/24 21:00 04/05/24 08:13 Sacubitril/Valsartan 97-103 Mg Tablet PO 1 tab Q12HR PILO Administration Radiology Results: ITS Impressions Chest CTA 04/01/24 19:46 IMPRESSION: No CT evidence of acute pulmonary embolus. No acute process detected in the chest. Venous Doppler Study 04/01/24 19:59 IMPRESSION: Patent bilateral lower extremity veins. No evidence of deep venous thrombosis. Renal Ultrasound 04/05/24 14:58 IMPRESSION: 1. Normal right kidney. 2. Severe atrophy of left kidney. Chest X-Ray 04/06/24 12:47 IMPRESSION: 1. Likely congestive heart failure with cardiomegaly, pulmonary vascular congestion and mild pulmonary edema in the lower lung zones. Labs Labs: Laboratory Results - last 24 hr 03/04/0204/07/24 04/07/24 07:42 11:55 17:01 WBC RBC Hgb Hct MCV MCH MCHC RDW Plt Count MPV Immature Gran % (Auto) Neut % (Auto) Lymph % (Auto) [place] % (Auto) Eos % (Auto) Baso % (Auto) Lymph # (Auto) [place] # (Auto) Eos # (Auto) Baso # (Auto) Abs Immat Gran (auto) Absolute Neuts (auto) Absolute Nucleated RBC Nucleated RBC % Puncture Site ABG pH ABG pCO2 ABG pO2 ABG PO2/FiO2 Ratio ABG HCO3 ABG O2 Saturation ABG O2 Content ABG Base Excess A-a Gradient Oxyhemoglobin Total Hemoglobin O2 Delivery Device O2 Liters/Min FiO2 Expiratory Pressure Inspiratory Pressure Sodium Potassium Chloride Carbon Dioxide Anion Gap BUN Creatinine Estim Creat Clear Calc Estimated GFR Glucose POC Capillary Glucose 113 H 122 H 123 H Calcium Phosphorus Total Bilirubin AST ALT Alkaline Phosphatase Total Protein Albumin 04/07/24 04/08/24 04/08/24 19:46 04:32 06:01 WBC 7.7 RBC 3.12 L Hgb 9.3 L Hct 31.5 L MCV 101.0 H MCH 29.8 MCHC 29.5 L RDW 14.5 Plt Count 213 MPV 9.3 Immature Gran % (Auto) 0.4 Neut % (Auto) 76.0 H Lymph % (Auto) 12.9 L [place] % (Auto) 6.8 Eos % (Auto) 3.5 Baso % (Auto) 0.4 Lymph # (Auto) 0.99 [place] # (Auto) 0.5 Eos # (Auto) 0.3 Baso # (Auto) 0.0 Abs Immat Gran (auto) 0.03 Absolute Neuts (auto) 5.8 Absolute Nucleated RBC 0.000 Nucleated RBC % 0.0 Puncture Site Left radial ABG pH 7.242 L* ABG pCO2 67.2 H* ABG pO2 53.8 L ABG PO2/FiO2 Ratio 1.54 ABG HCO3 28.3 H ABG O2 Saturation 81.2 L* ABG O2 Content 12.9 L ABG Base Excess -0.2 A-a Gradient 117.6 Oxyhemoglobin 84.3 L* Total Hemoglobin 10.9 L O2 Delivery Device Other device O2 Liters/Min Not Reportable FiO2 35 Expiratory Pressure 8 Inspiratory Pressure Not Reportable Sodium 146 H Potassium 5.1 H Chloride 109 H Carbon Dioxide 29 Anion Gap 8 BUN 51 H Creatinine 2.19 H Estim Creat Clear Calc 30 Estimated GFR 22 L Glucose 117 H POC Capillary Glucose 205 H Calcium 9.0 Phosphorus 4.7 H Total Bilirubin 0.4 AST 17 ALT 11 Alkaline Phosphatase 90 Total Protein 7.0 Albumin 3.4 L Quality VTE Prophylaxis VTE prophylaxis: pharmacologic ordered
[2024-04-08 08:03] LABS: Magnesium 2.7 mg/dL (1.6-2.3)
[2024-04-08 08:06] LABS: Glucose Point of Care 121 mg/dl (65-105)
--- NOTE | 2024-04-08 09:17 | P.PNPL_ITS ---
Progress Note: A&P Assessment and Plan (1) Acute hypoxic respiratory failure: Code(s): J96.01 - Acute respiratory failure with hypoxia Status: Acute (2) Hypercapnic respiratory failure: Code(s): J96.92 - Respiratory failure, unspecified with hypercapnia Status: Acute Assessment and Plan: A 64-year-old female with morbid obesity and a history of sleep apnea, previously managed with CPAP therapy until a device malfunction approximately six weeks ago, presented with hypoxemia. She was diagnosed with atrial fibrillation with rapid ventricular response and has since received treatment, returning to normal sinus rhythm. Arterial blood gas analysis indicated acute respiratory acidosis, with a pH around 7.26 and pCO2 exceeding 60 mmHg. It is noteworthy that there was no elevation in chronic bicarbonate levels to suggest chronic hypercapnic respiratory failure. The acute respiratory acidosis is likely related to her congestive heart failure and atrial fibrillation. On physical examination, her lungs were clear with no wheezing. Despite an initial improvement of acid-base disorder the patient developed worsening hypercapnia over the weekend and was switched to BiPAP AVAPS mode today's ABG still showing uncorrected respiratory acidosis with pH around 7.24. The patient is fully awake not complaining of any new respiratory symptoms. Physical exam she had no wheezing or any change in physical exam over the weekend. High air leak noted on BiPAP display. Plan: I changes were made to BiPAP AVAPS to decrease the alveolar ventilation in order to correct hypercapnia. Currently the patient is on BiPAP AVAPS 500, EPAP 4, maximum pressure 30, FiO2 unchanged 35%. ABGs as scheduled within the next 20 minutes. (3) CHF (congestive heart failure): Code(s): I50.9 - Heart failure, unspecified Status: Acute (4) Atrial fibrillation with RVR: Code(s): I48.91 - Unspecified atrial fibrillation Status: Acute (5) Acute on chronic systolic heart failure: Code(s): I50.23 - Acute on chronic systolic (congestive) heart failure Status: Acute Subjective Date/time seen: 04/08/24 09:17 Interval history: Patient expressed no new complaints. She remains on BiPAP support, switched to BiPAP AVAPS over the weekend for worsening hypercapnia. Today's ABGs still showed uncorrected respiratory acidosis. She has been on diuretic for possible congestive heart failure. She has no fever chills wheezing hemoptysis or lower extremity edema. Review of Systems Review of Systems: All systems reviewed & are unremarkable except as noted in HPI and below (HPI and below) Exam Narrative: GENERAL APPEARANCE: Well developed, well nourished, alert and cooperative, obese and appears to be in no acute distress while receiving a BiPAP support and supplemental oxygen SKIN: Inspection of the skin reveals no rashes, ulcerations or petechiae. HEENT: Sclerae anicteric and conjunctivae pink and moist. Extraocular movements were intact and pupils were equal, round, and reactive to light. The oral mucosa, hard and soft palate, tongue and posterior pharynx were normal. NECK: Supple. There was no thyroid enlargement, and no tenderness, or masses were felt. CHEST: Normal AP diameter and normal contour without any kyphoscoliosis. LUNGS: Auscultation of the lungs revealed normal breath sounds without any other adventitious sounds or rubs. CARDIAC: There was a regular rate and rhythm without any murmurs, gallops, rubs. ABDOMEN: Soft and nontender with normal bowel sounds. There was no organomegaly. LYMPH NODES: No lymphadenopathy was appreciated in the neck. EXTREMITIES: No cyanosis, clubbing or edema. NEUROLOGIC: Alert and oriented x 3. Normal affect. Objective Data Vital Signs Vital Signs: Vital Signs - 24 hr 04/07/24 09:23 04/07/24 10:12 04/07/24 12:00 Temperature Pulse Rate 74 Respiratory Rate Blood Pressure Pulse Oximetry 100 93 Oxygen Delivery Nasal Cannula Room Air Oxygen Flow Rate 2 04/07/24 13:01 04/07/24 15:52 04/07/24 16:00 Temperature Pulse Rate 71 68 71 Respiratory Rate 24 H 18 Blood Pressure Pulse Oximetry 100 94 Oxygen Delivery BiPAP BiPAP Oxygen Flow Rate 04/07/24 16:55 04/07/24 17:00 04/07/24 19:50 Temperature 36.7 C 36.6 C Pulse Rate 77 79 Respiratory Rate 18 20 Blood Pressure 144/68 H 110/87 Pulse Oximetry 95 95 99 Oxygen Delivery Room Air Oxygen Flow Rate 04/07/24 20:00 04/07/24 20:00 04/07/24 20:45 Temperature Pulse Rate 85 74 Respiratory Rate Blood Pressure Pulse Oximetry 99 Oxygen Delivery Room Air Oxygen Flow Rate 04/07/24 21:32 04/08/24 00:00 04/08/24 00:31 Temperature Pulse Rate 75 81 70 Respiratory Rate 15 18 Blood Pressure Pulse Oximetry 97 98 Oxygen Delivery BiPAP BiPAP Oxygen Flow Rate 04/08/24 02:31 04/08/24 03:55 04/08/24 04:00 Temperature 36.3 C L Pulse Rate 75 70 70 Respiratory Rate 16 17 Blood Pressure 137/66 Pulse Oximetry 100 Oxygen Delivery BiPAP Oxygen Flow Rate 04/08/24 07:46 Temperature Pulse Rate 77 Respiratory Rate 16 Blood Pressure Pulse Oximetry 100 Oxygen Delivery BiPAP Oxygen Flow Rate Intake/Output Intake/Output: Intake & Output 04/05/24 04/06/24 04/07/24 04/08/24 23:59 23:59 23:59 23:59 Intake Total 720 1440 880 Output Total 500 200 Balance 220 1440 880 -200 Meds/Results Medications: Active Medications Generic Name Dose Route Start Last Admin Trade Name Freq PRN Reason Stop Dose Admin Acetaminophen 650 mg 04/03/24 10:34 04/06/24 09:54 Acetaminophen 325 Mg Tablet PO 650 mg Q4H PRN Administration Headache Hydrocodone Bitart/Acetaminophen 1 tab 04/03/24 02:27 04/03/24 02:47 Hydrocodone/Acetaminophen (*Crx) 7.5-325 Mg Tablet PO 1 tab Q6H PRN Administration Pain Rated 7-10 Albuterol/Ipratropium 3 ml 04/02/24 00:22 Ipratropium 0.5 Mg/Albuterol Sulfate 2.5 Mg Ampul.Neb 3 Ml INHALATION Q4HRT PRN shortness of breath/Wheezing Allopurinol 300 mg 04/03/24 09:00 04/07/24 09:47 Allopurinol 100 Mg Tablet PO 300 mg QAM PILO Administration Allopurinol 200 mg 04/03/24 18:00 04/07/24 17:01 Allopurinol 100 Mg Tablet PO 200 mg QPM PILO Administration Apixaban 5 mg 04/03/24 21:00 04/07/24 20:45 Apixaban 5 Mg Tablet PO 5 mg Q12HR PILO Administration Atorvastatin Calcium 80 mg 04/03/24 09:00 04/07/24 08:10 Atorvastatin 40 Mg Tablet PO 80 mg DAILY PILO Administration Buspirone HCl 5 mg 04/02/24 17:00 04/07/24 17:00 Buspirone Hcl 5 Mg Tablet PO 5 mg BID PILO Administration Ezetimibe 10 mg 04/03/24 09:00 04/07/24 08:11 Ezetimibe 10 Mg Tablet PO 10 mg DAILY PILO Administration Empagliflozin 10 mg 04/03/24 09:00 04/07/24 08:11 Empagliflozin 10 Mg Tablet PO 10 mg DAILY PILO Administration Escitalopram Oxalate 20 mg 04/03/24 09:00 04/07/24 08:11 Escitalopram Oxalate 10 Mg Tablet PO 20 mg DAILY PILO Administration Furosemide 40 mg 04/06/24 17:00 Furosemide Inj 40 Mg/4 Ml Vial IV PUSH BID PILO Gabapentin 300 mg 04/02/24 13:00 04/07/24 17:00 Gabapentin 300 Mg Capsule PO 300 mg TID PILO Administration Insulin Aspart 4 - 8 units 04/06/24 17:00 04/07/24 17:29 Insulin Aspart (*Bkc) 100 Units/Ml SUB-Q Not Given TIDWM [facility] Protocol Insulin Aspart 2 - 4 units 04/06/24 21:00 04/07/24 20:46 Insulin Aspart (*Bkc) 100 Units/Ml SUB-Q 2 units HS PILO Administration Protocol Isosorbide Mononitrate 120 mg 04/03/24 09:00 04/07/24 08:11 Isosorbide Mononitrate 60 Mg Tab.Er.24h PO 120 mg DAILY PILO Administration Levothyroxine Sodium 100 mcg 04/03/24 06:30 04/08/24 05:46 Levothyroxine Sodium 100 Mcg Tablet PO 100 mcg DAILY@0630 [facility] Administration Melatonin 5 mg 04/02/24 00:22 Melatonin 5 Mg Tablet PO HS PRN Insomnia Metoprolol Tartrate 12.5 mg 04/02/24 00:30 04/07/24 20:45 Metoprolol Tartrate 12.5 Mg Tablet PO 12.5 mg Q12HR PILO Administration Prochlorperazine Edisylate 10 mg 04/02/24 00:22 Prochlorperazine Edisylate 10 Mg/2 Ml Vial IV PUSH Q6H PRN Nausea And Vomiting Sacubitril/Valsartan 1 tab 04/02/24 21:00 04/05/24 08:13 Sacubitril/Valsartan 97-103 Mg Tablet PO 1 tab Q12HR PILO Administration Radiology Results: ITS Impressions Chest CTA 04/01/24 19:46 IMPRESSION: No CT evidence of acute pulmonary embolus. No acute process detected in the chest. Venous Doppler Study 04/01/24 19:59 IMPRESSION: Patent bilateral lower extremity veins. No evidence of deep venous thrombosis. Renal Ultrasound 04/05/24 14:58 IMPRESSION: 1. Normal right kidney. 2. Severe atrophy of left kidney. Chest X-Ray 04/06/24 12:47 IMPRESSION: 1. Likely congestive heart failure with cardiomegaly, pulmonary vascular congestion and mild pulmonary edema in the lower lung zones. Labs Labs: Laboratory Results - last 24 hr 04/07/24 04/07/24 04/07/24 11:55 17:01 19:46 WBC RBC Hgb Hct MCV MCH MCHC RDW Plt Count MPV Immature Gran % (Auto) Neut % (Auto) Lymph % (Auto) [place] % (Auto) Eos % (Auto) Baso % (Auto) Lymph # (Auto) [place] # (Auto) Eos # (Auto) Baso # (Auto) Abs Immat Gran (auto) Absolute Neuts (auto) Absolute Nucleated RBC Nucleated RBC % Puncture Site ABG pH ABG pCO2 ABG pO2 ABG PO2/FiO2 Ratio ABG HCO3 ABG O2 Saturation ABG O2 Content ABG Base Excess A-a Gradient Oxyhemoglobin Total Hemoglobin O2 Delivery Device O2 Liters/Min FiO2 Expiratory Pressure Inspiratory Pressure Sodium Potassium Chloride Carbon Dioxide Anion Gap BUN Creatinine Estim Creat Clear Calc Estimated GFR Glucose POC Capillary Glucose 122 H 123 H 205 H Calcium Phosphorus Magnesium Total Bilirubin AST ALT Alkaline Phosphatase Total Protein Albumin 04/08/24 04/08/24 04/08/24 04:28 04:32 06:01 WBC 7.7 RBC 3.12 L Hgb 9.3 L Hct 31.5 L MCV 101.0 H MCH 29.8 MCHC 29.5 L RDW 14.5 Plt Count 213 MPV 9.3 Immature Gran % (Auto) 0.4 Neut % (Auto) 76.0 H Lymph % (Auto) 12.9 L [place] % (Auto) 6.8 Eos % (Auto) 3.5 Baso % (Auto) 0.4 Lymph # (Auto) 0.99 [place] # (Auto) 0.5 Eos # (Auto) 0.3 Baso # (Auto) 0.0 Abs Immat Gran (auto) 0.03 Absolute Neuts (auto) 5.8 Absolute Nucleated RBC 0.000 Nucleated RBC % 0.0 Puncture Site Left radial ABG pH 7.242 L* ABG pCO2 67.2 H* ABG pO2 53.8 L ABG PO2/FiO2 Ratio 1.54 ABG HCO3 28.3 H ABG O2 Saturation 81.2 L* ABG O2 Content 12.9 L ABG Base Excess -0.2 A-a Gradient 117.6 Oxyhemoglobin 84.3 L* Total Hemoglobin 10.9 L O2 Delivery Device Other device O2 Liters/Min Not Reportable FiO2 35 Expiratory Pressure 8 Inspiratory Pressure Not Reportable Sodium 146 H Potassium 5.1 H Chloride 109 H Carbon Dioxide 29 Anion Gap 8 BUN 51 H Creatinine 2.19 H Estim Creat Clear Calc 30 Estimated GFR 22 L Glucose 117 H POC Capillary Glucose Calcium 9.0 Phosphorus 4.7 H Magnesium 2.7 H Total Bilirubin 0.4 AST 17 ALT 11 Alkaline Phosphatase 90 Total Protein 7.0 Albumin 3.4 L 04/08/24 07:58 WBC RBC Hgb Hct MCV MCH MCHC RDW Plt Count MPV Immature Gran % (Auto) Neut % (Auto) Lymph % (Auto) [place] % (Auto) Eos % (Auto) Baso % (Auto) Lymph # (Auto) [place] # (Auto) Eos # (Auto) Baso # (Auto) Abs Immat Gran (auto) Absolute Neuts (auto) Absolute Nucleated RBC Nucleated RBC % Puncture Site ABG pH ABG pCO2 ABG pO2 ABG PO2/FiO2 Ratio ABG HCO3 ABG O2 Saturation ABG O2 Content ABG Base Excess A-a Gradient Oxyhemoglobin Total Hemoglobin O2 Delivery Device O2 Liters/Min FiO2 Expiratory Pressure Inspiratory Pressure Sodium Potassium Chloride Carbon Dioxide Anion Gap BUN Creatinine Estim Creat Clear Calc Estimated GFR Glucose POC Capillary Glucose 121 H Calcium Phosphorus Magnesium Total Bilirubin AST ALT Alkaline Phosphatase Total Protein Albumin
[2024-04-08] MEDS: APIXABAN 5 MG TABLET PO ×2 (09:20→20:21)
[2024-04-08] MEDS: busPIRone HCL 5 MG TABLET PO ×2 (09:20→17:19)
[2024-04-08] MEDS: ATORVASTATIN 40 MG TABLET 80 MG PO (09:20)
[2024-04-08] MEDS: allopurinoL 100 MG TABLET 300 MG PO (09:20)
[2024-04-08] MEDS: EZETIMIBE 10 MG TABLET PO (09:21)
[2024-04-08] MEDS: ISOSORBIDE MONONITRATE 60 MG TAB.ER.24H 120 MG PO (09:21)
[2024-04-08] MEDS: ESCITALOPRAM OXALATE 10 MG TABLET 20 MG PO (09:21)
[2024-04-08] MEDS: EMPAGLIFLOZIN 10 MG TABLET PO (09:21)
[2024-04-08] MEDS: GABAPENTIN 300 MG CAPSULE PO ×3 (09:21→17:19)
[2024-04-08] MEDS: METOPROLOL TARTRATE 12.5 MG TABLET PO ×2 (09:22→20:21)
[2024-04-08 11:49] LABS: Alveolar/Arterial O2 Gradient 63.7 mmHg; Base Excess ABG 1.7 mEq/l (+/-2.0); Carboxyhemoglobin 0.3 % THb (0-2.0); Fractional Inspired Oxygen 35 %; HCO3 ABG 28.7 mEq/l (22.0-26.0); Methemoglobin ABG 0.3 %THb (0-1.5); Oxygen Content ABG 13.4 %vol (16.0-22.0); Oxygen Saturation ABG 97.8 % (95.0-100.0); Oxyhemoglobin 97.7 % THb (90.0-100.0); PCO2 ABG 58.6 mmHg (35.0-45.0); PO2 ABG 117.7 mmHg (80.0-100.0); PO2 FiO2 Ratio Arterial Blood 3.36 %; Reduced Hemoglobin 1.7 %THb (0-5.0); Total Hemoglobin 9.6 g/dL (12.0-18.0); pH ABG 7.308 (7.350-7.450)
[2024-04-08 11:51] LABS: Device NON-INVASIVE VENT; Modified Allen's Test Pass; Site Drawn RIGHT RADIAL
[2024-04-08 11:52] LABS: Non-Invasive Vent Rate 20 /MIN
--- NOTE | 2024-04-08 12:05 | PM.PNNEP ---
Subjective Date/time seen: 04/08/24 12:05 Interval history: Follow-up for acute kidney injury/acute renal failure on chronic kidney disease. Chart reviewed since last seen -- Objective Data Vital Signs Vital Signs: Vital Signs Temp Pulse Resp BP Pulse Ox O2 Del Method O2 Flow Rate 04/08/24 12:00 78 04/08/24 10:42 78 24 H 98 BiPAP 04/08/24 09:22 74 04/08/24 09:21 77 04/08/24 09:21 93 Nasal Cannula 4 04/08/24 09:17 98.7 F 74 20 168/81 H 93 04/08/24 07:46 77 16 100 BiPAP 04/08/24 04:00 70 04/08/24 03:55 97.4 F L 70 17 137/66 100 04/08/24 02:31 75 16 BiPAP 04/08/24 00:31 70 18 98 BiPAP 04/08/24 00:00 81 04/07/24 21:32 75 15 97 BiPAP 04/07/24 20:45 74 04/07/24 20:00 85 04/07/24 20:00 99 Room Air 04/07/24 19:50 97.9 F 79 20 110/87 99 Intake/Output Intake/Output: Intake & Output 04/05/24 04/06/24 04/07/24 04/08/24 23:59 23:59 23:59 23:59 Intake Total 720 2135 634 7643 Output Total 500 200 Balance 220 8070 737 1827 Meds/Results Medications: Active Medications Generic Name Dose Route Start Last Admin Trade Name Freq PRN Reason Stop Dose Admin Acetaminophen 650 mg 04/03/24 10:34 04/06/24 09:54 Acetaminophen 325 Mg Tablet PO 650 mg Q4H PRN Administration Headache Hydrocodone Bitart/Acetaminophen 1 tab 04/03/24 02:27 04/03/24 02:47 Hydrocodone/Acetaminophen (*Crx) 7.5-325 Mg Tablet PO 1 tab Q6H PRN Administration Pain Rated 7-10 Albuterol/Ipratropium 3 ml 04/02/24 00:22 Ipratropium 0.5 Mg/Albuterol Sulfate 2.5 Mg Ampul.Neb 3 Ml INHALATION Q4HRT PRN shortness of breath/Wheezing Allopurinol 300 mg 04/03/24 09:00 04/08/24 09:20 Allopurinol 100 Mg Tablet PO 300 mg QAM PILO Administration Allopurinol 200 mg 04/03/24 18:00 04/08/24 17:19 Allopurinol 100 Mg Tablet PO 200 mg QPM PILO Administration Apixaban 5 mg 04/03/24 21:00 04/08/24 09:20 Apixaban 5 Mg Tablet PO 5 mg Q12HR PILO Administration Atorvastatin Calcium 80 mg 04/03/24 09:00 04/08/24 09:20 Atorvastatin 40 Mg Tablet PO 80 mg DAILY PILO Administration Buspirone HCl 5 mg 04/02/24 17:00 04/08/24 17:19 Buspirone Hcl 5 Mg Tablet PO 5 mg BID PILO Administration Ezetimibe 10 mg 04/03/24 09:00 04/08/24 09:21 Ezetimibe 10 Mg Tablet PO 10 mg DAILY PILO Administration Empagliflozin 10 mg 04/03/24 09:00 04/08/24 09:21 Empagliflozin 10 Mg Tablet PO 10 mg DAILY PILO Administration Escitalopram Oxalate 20 mg 04/03/24 09:00 04/08/24 09:21 Escitalopram Oxalate 10 Mg Tablet PO 20 mg DAILY PILO Administration Furosemide 40 mg 04/06/24 17:00 Furosemide Inj 40 Mg/4 Ml Vial IV PUSH BID [facility] Gabapentin 300 mg 04/02/24 13:00 04/08/24 17:19 Gabapentin 300 Mg Capsule PO 300 mg TID PILO Administration Insulin Aspart 4 - 8 units 04/06/24 17:00 04/08/24 17:20 Insulin Aspart (*Bkc) 100 Units/Ml SUB-Q Not Given TIDWM [facility] Protocol Insulin Aspart 2 - 4 units 04/06/24 21:00 04/07/24 20:46 Insulin Aspart (*Bkc) 100 Units/Ml SUB-Q 2 units HS PILO Administration Protocol Isosorbide Mononitrate 120 mg 04/03/24 09:00 04/08/24 09:21 Isosorbide Mononitrate 60 Mg Tab.Er.24h PO 120 mg DAILY PILO Administration Levothyroxine Sodium 100 mcg 04/03/24 06:30 04/08/24 05:46 Levothyroxine Sodium 100 Mcg Tablet PO 100 mcg DAILY@0630 [facility] Administration Melatonin 5 mg 04/02/24 00:22 Melatonin 5 Mg Tablet PO HS PRN Insomnia Metoprolol Tartrate 12.5 mg 04/02/24 00:30 04/08/24 09:22 Metoprolol Tartrate 12.5 Mg Tablet PO 12.5 mg Q12HR PILO Administration Prochlorperazine Edisylate 10 mg 04/02/24 00:22 Prochlorperazine Edisylate 10 Mg/2 Ml Vial IV PUSH Q6H PRN Nausea And Vomiting Sacubitril/Valsartan 1 tab 04/02/24 21:00 04/05/24 08:13 Sacubitril/Valsartan 97-103 Mg Tablet PO 1 tab Q12HR PILO Administration Radiology Results: ITS Impressions Chest CTA 04/01/24 19:46 IMPRESSION: No CT evidence of acute pulmonary embolus. No acute process detected in the chest. Venous Doppler Study 04/01/24 19:59 IMPRESSION: Patent bilateral lower extremity veins. No evidence of deep venous thrombosis. Renal Ultrasound 04/05/24 14:58 IMPRESSION: 1. Normal right kidney. 2. Severe atrophy of left kidney. Chest X-Ray 04/06/24 12:47 IMPRESSION: 1. Likely congestive heart failure with cardiomegaly, pulmonary vascular congestion and mild pulmonary edema in the lower lung zones. Labs Labs: Laboratory Tests 04/08/24 04:32 04/08/24 04:32 Calcium 9.0 Phosphorus 4.7 H Total Bilirubin 0.4 AST 17 ALT 11 Alkaline Phosphatase 90 Total Protein 7.0 Albumin 3.4 L
[2024-04-08 12:38] LABS: Glucose Point of Care 171 mg/dl (65-105)
[2024-04-08 13:49] LABS: Device BIPAP; Expiratory Pressure 8 cmH2O; Inspiratory Pressure 20 cmH2O
[2024-04-08 17:15] LABS: Glucose Point of Care 129 mg/dl (65-105)
[2024-04-08] MEDS: allopurinoL 100 MG TABLET 200 MG PO (17:19)
[2024-04-08 21:56] LABS: Glucose Point of Care 185 mg/dl (65-105)
[2024-04-09] VITALS (14 sets, daily range): BP systolic 128–158; BP diastolic 53–79; PULSE 68–88; RESP 18–24; TEMP 36.2–36.4; O2SAT 94–100
[2024-04-09 04:04] LABS: Hepatitis B Core Ab Total NON-REACTIVE (NON-REACTIVE)
[2024-04-09 06:11] LABS: Basophils Percent Auto 0.6 % (0.2-1.2); Eosinophils Absolute Auto 0.3 K/mm3 (0-0.3); Eosinophils Percent Auto 3.6 % (0-4.4); Hematocrit 29.8 % (37.0-47.0); Hemoglobin 8.7 g/dL (12.0-15.0); Immature Granulocyte Absolute 0.02 K/mm3 (0.00-0.031); Immature Granulocyte Percent A 0.3 % (0-0.5); Lymphocytes Absolute Auto 0.92 K/mm3 (0.9-3.2); Lymphocytes Percent Auto 13.1 % (18.3-44.2); Mean Corpuscular HGB Conc 29.2 g/dl (32-36); Mean Corpuscular Hemoglobin 30.1 pg (26-34); Mean Corpuscular Volume 103.1 fl (80-100); Mean Platelet Volume 9.8 fl (7.4-10.4); Monocytes Absolute Auto 0.5 K/mm3 (0.1-0.6); Monocytes Percent Auto 6.8 % (2.6-8.5); Neutrophils Absolute Auto 5.3 K/mm3 (1.3-6.7); Neutrophils Percent Auto 75.6 % (45.5-73.1); Platelet Count Result 221 k/mm3 (150-375); Red Blood Count 2.89 M/mm3 (4.2-5.4); Red Cell Distribution Width 14.4 % (11.5-14.5)
[2024-04-09 06:19] LABS: Alanine Aminotransferase 14 U/L (6-35); Albumin Level 3.3 g/dL (3.5-5.1); Alkaline Phosphatase 83 U/L (38-126); Anion Gap 5 mmol/L (4-12); Aspartate Amino Transferase 19 U/L (14-36); Bilirubin,Total 0.4 mg/dL (0.2-1.3); Blood Urea Nitrogen 48 mg/dL (7-17); Calcium 9.4 mg/dL (8.4-10.2); Carbon Dioxide 30 mmol/L (22-30); Chloride 110 mmol/L (98-107); Estimated CRCL calculation 36 ml/min; Estimated Glomerular Filt Rate 28; Glucose 130 mg/dL (65-110); Potassium 5.5 mmol/L (3.4-5.0); Sodium 145 mmol/L (137-145)
[2024-04-09] MEDS: LEVOTHYROXINE SODIUM 100 MCG TABLET PO (06:33)
[2024-04-09 06:55] LABS: Hypochromasia 1+; Platelet Estimate Adequate (Adequate); Schistocytes None Seen; Stomatocytes 1+
[2024-04-09 07:39] LABS: Glucose Point of Care 114 mg/dl (65-105)
[2024-04-09] MEDS: SODIUM ZIRCONIUM CYCLOSILICATE 10 GM POWD.PACK PO (07:42)
[2024-04-09] MEDS: busPIRone HCL 5 MG TABLET PO ×2 (08:28→17:15)
[2024-04-09] MEDS: ESCITALOPRAM OXALATE 10 MG TABLET 20 MG PO (08:28)
[2024-04-09] MEDS: allopurinoL 100 MG TABLET 300 MG PO (08:28)
[2024-04-09] MEDS: ATORVASTATIN 40 MG TABLET 80 MG PO (08:28)
[2024-04-09] MEDS: EMPAGLIFLOZIN 10 MG TABLET PO (08:28)
[2024-04-09] MEDS: GABAPENTIN 300 MG CAPSULE PO ×3 (08:28→17:15)
[2024-04-09] MEDS: APIXABAN 5 MG TABLET PO ×2 (08:28→20:29)
[2024-04-09] MEDS: EZETIMIBE 10 MG TABLET PO (08:29)
[2024-04-09] MEDS: ISOSORBIDE MONONITRATE 60 MG TAB.ER.24H 120 MG PO (08:29)
[2024-04-09] MEDS: METOPROLOL TARTRATE 12.5 MG TABLET PO ×2 (08:29→20:29)
--- NOTE | 2024-04-09 08:50 | PCNWS ---
Weekly nutritional screen. Patient is tolerating current 2gm NA diet with adequate intake 100% of meals. No weight loss reported. No nutritional recommendations at this time.
--- NOTE | 2024-04-09 08:51 | PM.PNPUL ---
Progress Note: A&P Assessment and Plan (1) Acute hypoxic respiratory failure: Code(s): J96.01 - Acute respiratory failure with hypoxia Status: Acute (2) Hypercapnic respiratory failure: Code(s): J96.92 - Respiratory failure, unspecified with hypercapnia Status: Acute Assessment and Plan: A 64-year-old female with morbid obesity and a history of sleep apnea, previously managed with CPAP therapy until a device malfunction approximately six weeks ago, presented with hypoxemia. She was diagnosed with atrial fibrillation with rapid ventricular response and has since received treatment, returning to normal sinus rhythm. Arterial blood gas analysis indicated acute respiratory acidosis, with a pH around 7.26 and pCO2 exceeding 60 mmHg. It is noteworthy that there was no elevation in chronic bicarbonate levels to suggest chronic hypercapnic respiratory failure. The acute respiratory acidosis is likely related to her congestive heart failure and atrial fibrillation. On physical examination, her lungs were clear with no wheezing. Despite an initial improvement of acid-base disorder the patient developed worsening hypercapnia over the weekend and was switched to BiPAP AVAPS mode. Following adjustments of her BiPAP AVAPS patient improved and on repeat arterial blood gases yesterday the pH was 7.30 while the pCO2 was lower than 60 mmHg. This a.m. the patient is fully awake and not complaining of any new respiratory symptoms except some epistaxis. Plan: Continue with BiPAP support at night and p.r.n. during the day. Efforts are underway to get approval through patient's health insurance for a home ventilator. Will continue to follow the patient along with you. (3) CHF (congestive heart failure): Code(s): I50.9 - Heart failure, unspecified Status: Acute (4) Atrial fibrillation with RVR: Code(s): I48.91 - Unspecified atrial fibrillation Status: Acute (5) Acute on chronic systolic heart failure: Code(s): I50.23 - Acute on chronic systolic (congestive) heart failure Status: Acute Subjective Date/time seen: 04/09/24 08:51 Interval history: Patient has no new respiratory symptoms. She used BiPAP support last night currently fully awake sitting on bed edge. Mild epistaxis this a.m. Review of Systems Review of Systems: All systems reviewed & are unremarkable except as noted in HPI and below (HPI and below) Exam Narrative: GENERAL APPEARANCE: Well developed, well nourished, alert and cooperative, obese and appears to be in no acute distress while receiving a BiPAP support and supplemental oxygen SKIN: Inspection of the skin reveals no rashes, ulcerations or petechiae. HEENT: Sclerae anicteric and conjunctivae pink and moist. Extraocular movements were intact and pupils were equal, round, and reactive to light. The oral mucosa, hard and soft palate, tongue and posterior pharynx were normal. NECK: Supple. There was no thyroid enlargement, and no tenderness, or masses were felt. CHEST: Normal AP diameter and normal contour without any kyphoscoliosis. LUNGS: Auscultation of the lungs revealed normal breath sounds without any other adventitious sounds or rubs. CARDIAC: There was a regular rate and rhythm without any murmurs, gallops, rubs. ABDOMEN: Soft and nontender with normal bowel sounds. There was no organomegaly. LYMPH NODES: No lymphadenopathy was appreciated in the neck. EXTREMITIES: No cyanosis, clubbing or edema. NEUROLOGIC: Alert and oriented x 3. Normal affect. Objective Data Vital Signs Vital Signs: Vital Signs - 24 hr 04/08/24 09:17 04/08/24 09:21 04/08/24 09:21 Temperature 37.1 C Pulse Rate 74 77 Respiratory Rate 20 Blood Pressure 168/81 H Pulse Oximetry 93 93 Oxygen Delivery Nasal Cannula Oxygen Flow Rate 4 04/08/24 09:22 04/08/24 10:42 04/08/24 12:00 Temperature Pulse Rate 74 78 78 Respiratory Rate 24 H Blood Pressure Pulse Oximetry 98 Oxygen Delivery BiPAP Oxygen Flow Rate 04/08/24 13:46 04/08/24 16:00 04/08/24 20:00 Temperature 36.8 C Pulse Rate 74 73 84 Respiratory Rate 20 Blood Pressure 139/63 Pulse Oximetry 96 Oxygen Delivery Oxygen Flow Rate 04/08/24 20:21 04/08/24 20:38 04/08/24 22:55 Temperature 36.1 C L Pulse Rate 84 80 74 Respiratory Rate 20 21 H Blood Pressure 144/54 H Pulse Oximetry 99 98 Oxygen Delivery Oxygen Flow Rate 04/09/24 00:00 04/09/24 01:59 04/09/24 04:00 Temperature Pulse Rate 80 77 72 Respiratory Rate 24 H Blood Pressure Pulse Oximetry 98 Oxygen Delivery Oxygen Flow Rate 04/09/24 05:07 04/09/24 08:26 04/09/24 08:29 Temperature 36.2 C L 36.3 C L Pulse Rate 75 76 79 Respiratory Rate 22 H 18 Blood Pressure 128/78 157/79 H Pulse Oximetry 100 97 Oxygen Delivery Oxygen Flow Rate Intake/Output Intake/Output: Intake & Output 04/06/24 04/07/24 04/08/24 04/09/24 23:59 23:59 23:59 23:59 Intake Total 9037 161 2005 120 Output Total 200 Balance 9984 023 0217 120 Meds/Results Medications: Active Medications Generic Name Dose Route Start Last Admin Trade Name Freq PRN Reason Stop Dose Admin Acetaminophen 650 mg 04/03/24 10:34 04/06/24 09:54 Acetaminophen 325 Mg Tablet PO 650 mg Q4H PRN Administration Headache Hydrocodone Bitart/Acetaminophen 1 tab 04/03/24 02:27 04/03/24 02:47 Hydrocodone/Acetaminophen (*Crx) 7.5-325 Mg Tablet PO 1 tab Q6H PRN Administration Pain Rated 7-10 Albuterol/Ipratropium 3 ml 04/02/24 00:22 Ipratropium 0.5 Mg/Albuterol Sulfate 2.5 Mg Ampul.Neb 3 Ml INHALATION Q4HRT PRN shortness of breath/Wheezing Allopurinol 300 mg 04/03/24 09:00 04/09/24 08:28 Allopurinol 100 Mg Tablet PO 300 mg QAM PILO Administration Allopurinol 200 mg 04/03/24 18:00 04/08/24 17:19 Allopurinol 100 Mg Tablet PO 200 mg QPM PILO Administration Apixaban 5 mg 04/03/24 21:00 04/09/24 08:28 Apixaban 5 Mg Tablet PO 5 mg Q12HR PILO Administration Atorvastatin Calcium 80 mg 04/03/24 09:00 04/09/24 08:28 Atorvastatin 40 Mg Tablet PO 80 mg DAILY PILO Administration Buspirone HCl 5 mg 04/02/24 17:00 04/09/24 08:28 Buspirone Hcl 5 Mg Tablet PO 5 mg BID PILO Administration Ezetimibe 10 mg 04/03/24 09:00 04/09/24 08:29 Ezetimibe 10 Mg Tablet PO 10 mg DAILY PILO Administration Empagliflozin 10 mg 04/03/24 09:00 04/09/24 08:28 Empagliflozin 10 Mg Tablet PO 10 mg DAILY [facility] Administration Escitalopram Oxalate 20 mg 04/03/24 09:00 04/09/24 08:28 Escitalopram Oxalate 10 Mg Tablet PO 20 mg DAILY [facility] Administration Furosemide 40 mg 04/06/24 17:00 Furosemide Inj 40 Mg/4 Ml Vial IV PUSH BID PILO Gabapentin 300 mg 04/02/24 13:00 04/09/24 08:28 Gabapentin 300 Mg Capsule PO 300 mg TID [facility] Administration Insulin Aspart 4 - 8 units 04/06/24 17:00 04/09/24 08:29 Insulin Aspart (*Bkc) 100 Units/Ml SUB-Q Not Given TIDWM [facility] Protocol Insulin Aspart 2 - 4 units 04/06/24 21:00 04/09/24 05:43 Insulin Aspart (*Bkc) 100 Units/Ml SUB-Q Not Given HS [facility] Protocol Isosorbide Mononitrate 120 mg 04/03/24 09:00 04/09/24 08:29 Isosorbide Mononitrate 60 Mg Tab.Er.24h PO 120 mg DAILY [facility] Administration Levothyroxine Sodium 100 mcg 04/03/24 06:30 04/09/24 06:33 Levothyroxine Sodium 100 Mcg Tablet PO 100 mcg DAILY@0630 [facility] Administration Melatonin 5 mg 04/02/24 00:22 Melatonin 5 Mg Tablet PO HS PRN Insomnia Metoprolol Tartrate 12.5 mg 04/02/24 00:30 04/09/24 08:29 Metoprolol Tartrate 12.5 Mg Tablet PO 12.5 mg Q12HR PILO Administration Prochlorperazine Edisylate 10 mg 04/02/24 00:22 Prochlorperazine Edisylate 10 Mg/2 Ml Vial IV PUSH Q6H PRN Nausea And Vomiting Sacubitril/Valsartan 1 tab 04/02/24 21:00 04/05/24 08:13 Sacubitril/Valsartan 97-103 Mg Tablet PO 1 tab Q12HR PILO Administration Radiology Results: ITS Impressions Chest CTA 04/01/24 19:46 IMPRESSION: No CT evidence of acute pulmonary embolus. No acute process detected in the chest. Venous Doppler Study 04/01/24 19:59 IMPRESSION: Patent bilateral lower extremity veins. No evidence of deep venous thrombosis. Renal Ultrasound 04/05/24 14:58 IMPRESSION: 1. Normal right kidney. 2. Severe atrophy of left kidney. Chest X-Ray 04/06/24 12:47 IMPRESSION: 1. Likely congestive heart failure with cardiomegaly, pulmonary vascular congestion and mild pulmonary edema in the lower lung zones. Labs Labs: Laboratory Results - last 24 hr 04/05/24 04/07/24 04/08/24 06:20 05:37 11:46 WBC RBC Hgb Hct MCV MCH MCHC RDW Plt Count MPV Immature Gran % (Auto) Neut % (Auto) Lymph % (Auto) [place] % (Auto) Eos % (Auto) Baso % (Auto) Lymph # (Auto) [place] # (Auto) Eos # (Auto) Baso # (Auto) Abs Immat Gran (auto) Absolute Neuts (auto) Absolute Nucleated RBC Band Neutrophils % Nucleated RBC % Platelet Estimate Hypochromasia Stomatocytes Schistocytes Puncture Site Right radial ABG pH 7.308 L ABG pCO2 58.6 H ABG pO2 117.7 H ABG PO2/FiO2 Ratio 3.36 ABG HCO3 28.7 H ABG O2 Saturation 97.8 ABG O2 Content 13.4 L ABG Base Excess 1.7 A-a Gradient 63.7 Oxyhemoglobin 97.7 Carboxyhemoglobin 0.3 Methemoglobin 0.3 Reduced Hemoglobin 1.7 Total Hemoglobin 9.6 L O2 Delivery Device Bipap Non-invasive vent O2 Liters/Min Not Reportable Vent Rate 20 FiO2 35 Expiratory Pressure 8 Not Reportable Inspiratory Pressure 20 Not Reportable Sodium Potassium Chloride Carbon Dioxide Anion Gap BUN Creatinine Estim Creat Clear Calc Estimated GFR Glucose POC Capillary Glucose Calcium Total Bilirubin AST ALT Alkaline Phosphatase Total Protein Albumin Hep B Core Total Ab Non-reactive 04/08/24 04/08/24 04/08/24 12:06 17:12 20:41 WBC RBC Hgb Hct MCV MCH MCHC RDW Plt Count MPV Immature Gran % (Auto) Neut % (Auto) Lymph % (Auto) [place] % (Auto) Eos % (Auto) Baso % (Auto) Lymph # (Auto) [place] # (Auto) Eos # (Auto) Baso # (Auto) Abs Immat Gran (auto) Absolute Neuts (auto) Absolute Nucleated RBC Band Neutrophils % Nucleated RBC % Platelet Estimate Hypochromasia Stomatocytes Schistocytes Puncture Site ABG pH ABG pCO2 ABG pO2 ABG PO2/FiO2 Ratio ABG HCO3 ABG O2 Saturation ABG O2 Content ABG Base Excess A-a Gradient Oxyhemoglobin Carboxyhemoglobin Methemoglobin Reduced Hemoglobin Total Hemoglobin O2 Delivery Device O2 Liters/Min Vent Rate FiO2 Expiratory Pressure Inspiratory Pressure Sodium Potassium Chloride Carbon Dioxide Anion Gap BUN Creatinine Estim Creat Clear Calc Estimated GFR Glucose POC Capillary Glucose 171 H 129 H 185 H Calcium Total Bilirubin AST ALT Alkaline Phosphatase Total Protein Albumin Hep B Core Total Ab 04/09/24 04/09/24 05:09 07:35 WBC 7.0 RBC 2.89 L Hgb 8.7 L Hct 29.8 L MCV 103.1 H MCH 30.1 MCHC 29.2 L RDW 14.4 Plt Count 221 MPV 9.8 Immature Gran % (Auto) 0.3 Neut % (Auto) 75.6 H Lymph % (Auto) 13.1 L [place] % (Auto) 6.8 Eos % (Auto) 3.6 Baso % (Auto) 0.6 Lymph # (Auto) 0.92 [place] # (Auto) 0.5 Eos # (Auto) 0.3 Baso # (Auto) 0.0 Abs Immat Gran (auto) 0.02 Absolute Neuts (auto) 5.3 Absolute Nucleated RBC 0.000 Band Neutrophils % Not Reportable Nucleated RBC % 0.0 Platelet Estimate Adequate Hypochromasia 1+ Stomatocytes 1+ Schistocytes None seen Puncture Site ABG pH ABG pCO2 ABG pO2 ABG PO2/FiO2 Ratio ABG HCO3 ABG O2 Saturation ABG O2 Content ABG Base Excess A-a Gradient Oxyhemoglobin Carboxyhemoglobin Methemoglobin Reduced Hemoglobin Total Hemoglobin O2 Delivery Device O2 Liters/Min Vent Rate FiO2 Expiratory Pressure Inspiratory Pressure Sodium 145 Potassium 5.5 H Chloride 110 H Carbon Dioxide 30 Anion Gap 5 BUN 48 H Creatinine 1.83 H Estim Creat Clear Calc 36 Estimated GFR 28 L Glucose 130 H POC Capillary Glucose 114 H Calcium 9.4 Total Bilirubin 0.4 AST 19 ALT 14 Alkaline Phosphatase 83 Total Protein 6.0 L Albumin 3.3 L Hep B Core Total Ab
--- NOTE | 2024-04-09 10:14 | P.PNIM_ITS ---
Progress Note: A&P Assessment and Plan (1) Atrial fibrillation with RVR: Code(s): I48.91 - Unspecified atrial fibrillation Status: Acute Assessment and Plan: * continue eliquis and metoprolol * Cardiology following * Echo shown LVEF 40-45% 3/ * No change to current treatment plan 04/08/24: * No change to current treatment plan 04/09/24: * No change to current treatment plan (2) Acute hypoxic respiratory failure: Code(s): J96.01 - Acute respiratory failure with hypoxia Status: Acute Assessment and Plan: * CTA negative for PE * Pulmonology consulted * ABG today showing pH 7.177, pCO2 78.2, pO2 76.5, Bicarb 28.3. Patient was placed on continuous bipap with follow up ABG showing 7.254, PCO2 61.8, pO2 69.9, bicarb 26.2 * CXR showing congestive heart failure with cardiomegaly, pulmonary vascular congestion and mild pulmonary edema in the lower lung zones * Hx of DAMI wears Cpap at bedtime however her unit is not working at home. ??? considering her hypercapnia she would benefit from Bipap in AVAPS instead of Cpap. 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 * Changes were made to BiPAP AVAPS to decrease the alveolar ventilation in order to correct hypercapnia. Currently the patient is on BiPAP AVAPS 500, EPAP 4, maximum pressure 30, FiO2 unchanged 35%. * Patient to wear 02@4 liters nasal cannula with not wearing the BIPAP. * Pulmonology following. 04/09/24: * Patient doing well. * Patient to wear 02@4 liters nasal cannula with not wearing the BIPAP. * Pulmonology following. * Efforts are underway to get approval through patient's health insurance for a home ventilator. (3) CHF (congestive heart failure): Code(s): I50.9 - Heart failure, unspecified Status: Acute Assessment and Plan: * Echo shown LVEF of 40-45% per Cardiology notation * Continue Jardiance and Metoprolol * Entresto and Lasix on hold * CXR showing congestive heart failure with cardiomegaly, pulmonary vascular congestion and mild pulmonary edema in the lower lung zones 04/07 * Continue to hold Lasix and Entresto 04/08/24: * Continue to hold Lasix and Entresto 04/09/24: * Continue to hold Lasix and Entresto (4) WILLIAN (acute kidney injury): Code(s): N17.9 - Acute kidney failure, unspecified Status: Acute Assessment and Plan: * Creatinine 3.46 today, EGF 13 * Lasix and Entresto on hold * Avoid nephrotoxic medication * Nephrology following * Baseline creatinine 1.80-2.30 * Continue to trend 04/07 * Creatinine 2.61 * Continue to hold Lasix and Entresto * Avoid nephrotoxic medication * Nephrology following * Continue to trend 04/08/24: * Creatinine 2.19, improving. * Continue to hold Lasix and Entresto * Avoid nephrotoxic medication * Nephrology following * Continue to trend 04/09/34: * Creatinine 1.77, improving. * Continue to hold Lasix and Entresto * Avoid nephrotoxic medication * Nephrology following * Continue to trend (5) Hypothyroidism: Code(s): E03.9 - Hypothyroidism, unspecified Status: Acute Assessment and Plan: * Continue synthroid 04/07 * No change to current treatment plan 04/08/24: * No change to current treatment plan 04/09/24: * No change to current treatment plan (6) Diabetes: Code(s): E11.9 - Type 2 diabetes mellitus without complications Status: Chronic Assessment and Plan: * Blood sugars ranging 102-153 * Will obtain Hgb A1C * Accu checks AC/HS * High dose SSI ordered * hypoglycemic protocol in place * Diabetic diet ordered 04/07 * No change to current treatment plan 04/08/24: * Blood sugars ranging 121-171. * HgbA1C 7.2%. * Accu checks AC/HS * High dose SSI ordered * hypoglycemic protocol in place 04/09/24 * Blood sugars ranging 114-126. * HgbA1C 7.2%. * Accu checks AC/HS * High dose SSI ordered * hypoglycemic protocol in place Subjective Date/time seen: 04/09/24 10:14 Interval history: Patient denies chest pain, palpitations, headache, dizziness, nausea, or vomiting. Patient reported feeling weak when she gets up and is agreeable to therapy. Review of Systems Review of Systems: All systems reviewed & are unremarkable except as noted in HPI and below Exam Const: General: comfortable and no acute distress Resp: Effort & Inspection: normal respiratory effort Auscultation: clear to auscultation bilaterally GI: GI Palp: Yes Soft to palpation Auscultation: normal bowel sounds Neuro: Speech: normal speech Extrem: General: no pedal edema Psych: Mental Status: mental status grossly normal Affect: normal affect Objective Data Vital Signs Vital Signs: Vital Signs - 24 hr 04/08/24 10:42 04/08/24 12:00 04/08/24 13:46 Temperature 98.2 F Pulse Rate 78 78 74 Respiratory Rate 24 H 20 Blood Pressure 139/63 Pulse Oximetry 98 96 Oxygen Delivery BiPAP 04/08/24 16:00 04/08/24 20:00 04/08/24 20:21 Temperature Pulse Rate 73 84 84 Respiratory Rate Blood Pressure Pulse Oximetry Oxygen Delivery 04/08/24 20:38 04/08/24 22:55 04/09/24 00:00 Temperature 97 F L Pulse Rate 80 74 80 Respiratory Rate 20 21 H Blood Pressure 144/54 H Pulse Oximetry 99 98 Oxygen Delivery 04/09/24 01:59 04/09/24 04:00 04/09/24 05:07 Temperature 97.2 F L Pulse Rate 77 72 75 Respiratory Rate 24 H 22 H Blood Pressure 128/78 Pulse Oximetry 98 100 Oxygen Delivery 04/09/24 08:26 04/09/24 08:29 Temperature 97.4 F L Pulse Rate 76 79 Respiratory Rate 18 Blood Pressure 157/79 H Pulse Oximetry 97 Oxygen Delivery Intake/Output Intake/Output: Intake & Output 04/06/24 04/07/24 04/08/24 04/09/24 23:59 23:59 23:59 23:59 Intake Total 4459 959 9576 360 Output Total 200 Balance 7751 909 5624 360 Meds/Results Medications: Active Medications Generic Name Dose Route Start Last Admin Trade Name Freq PRN Reason Stop Dose Admin Acetaminophen 650 mg 04/03/24 10:34 04/06/24 09:54 Acetaminophen 325 Mg Tablet PO 650 mg Q4H PRN Administration Headache Hydrocodone Bitart/Acetaminophen 1 tab 04/03/24 02:27 04/03/24 02:47 Hydrocodone/Acetaminophen (*Crx) 7.5-325 Mg Tablet PO 1 tab Q6H PRN Administration Pain Rated 7-10 Albuterol/Ipratropium 3 ml 04/02/24 00:22 Ipratropium 0.5 Mg/Albuterol Sulfate 2.5 Mg Ampul.Neb 3 Ml INHALATION Q4HRT PRN shortness of breath/Wheezing Allopurinol 300 mg 04/03/24 09:00 04/09/24 08:28 Allopurinol 100 Mg Tablet PO 300 mg QAM PILO Administration Allopurinol 200 mg 04/03/24 18:00 04/08/24 17:19 Allopurinol 100 Mg Tablet PO 200 mg QPM PILO Administration Apixaban 5 mg 04/03/24 21:00 04/09/24 08:28 Apixaban 5 Mg Tablet PO 5 mg Q12HR PILO Administration Atorvastatin Calcium 80 mg 04/03/24 09:00 04/09/24 08:28 Atorvastatin 40 Mg Tablet PO 80 mg DAILY PILO Administration Buspirone HCl 5 mg 04/02/24 17:00 04/09/24 08:28 Buspirone Hcl 5 Mg Tablet PO 5 mg BID PILO Administration Ezetimibe 10 mg 04/03/24 09:00 04/09/24 08:29 Ezetimibe 10 Mg Tablet PO 10 mg DAILY PILO Administration Empagliflozin 10 mg 04/03/24 09:00 04/09/24 08:28 Empagliflozin 10 Mg Tablet PO 10 mg DAILY PILO Administration Escitalopram Oxalate 20 mg 04/03/24 09:00 04/09/24 08:28 Escitalopram Oxalate 10 Mg Tablet PO 20 mg DAILY PILO Administration Furosemide 40 mg 04/06/24 17:00 Furosemide Inj 40 Mg/4 Ml Vial IV PUSH BID PILO Gabapentin 300 mg 04/02/24 13:00 04/09/24 08:28 Gabapentin 300 Mg Capsule PO 300 mg TID PILO Administration Insulin Aspart 4 - 8 units 04/06/24 17:00 04/09/24 08:29 Insulin Aspart (*Bkc) 100 Units/Ml SUB-Q Not Given TIDWM [facility] Protocol Insulin Aspart 2 - 4 units 04/06/24 21:00 04/09/24 05:43 Insulin Aspart (*Bkc) 100 Units/Ml SUB-Q Not Given HS [facility] Protocol Isosorbide Mononitrate 120 mg 04/03/24 09:00 04/09/24 08:29 Isosorbide Mononitrate 60 Mg Tab.Er.24h PO 120 mg DAILY PILO Administration Levothyroxine Sodium 100 mcg 04/03/24 06:30 04/09/24 06:33 Levothyroxine Sodium 100 Mcg Tablet PO 100 mcg DAILY@0630 PILO Administration Melatonin 5 mg 04/02/24 00:22 Melatonin 5 Mg Tablet PO HS PRN Insomnia Metoprolol Tartrate 12.5 mg 04/02/24 00:30 04/09/24 08:29 Metoprolol Tartrate 12.5 Mg Tablet PO 12.5 mg Q12HR PILO Administration Prochlorperazine Edisylate 10 mg 04/02/24 00:22 Prochlorperazine Edisylate 10 Mg/2 Ml Vial IV PUSH Q6H PRN Nausea And Vomiting Sacubitril/Valsartan 1 tab 04/02/24 21:00 04/05/24 08:13 Sacubitril/Valsartan 97-103 Mg Tablet PO 1 tab Q12HR PILO Administration Radiology Results: ITS Impressions Chest CTA 04/01/24 19:46 IMPRESSION: No CT evidence of acute pulmonary embolus. No acute process detected in the chest. Venous Doppler Study 04/01/24 19:59 IMPRESSION: Patent bilateral lower extremity veins. No evidence of deep venous thrombosis. Renal Ultrasound 04/05/24 14:58 IMPRESSION: 1. Normal right kidney. 2. Severe atrophy of left kidney. Chest X-Ray 04/06/24 12:47 IMPRESSION: 1. Likely congestive heart failure with cardiomegaly, pulmonary vascular congestion and mild pulmonary edema in the lower lung zones. Labs Labs: Laboratory Results - last 24 hr 04/05/24 04/07/24 04/08/24 06:20 05:37 11:46 WBC RBC Hgb Hct MCV MCH MCHC RDW Plt Count MPV Immature Gran % (Auto) Neut % (Auto) Lymph % (Auto) [place] % (Auto) Eos % (Auto) Baso % (Auto) Lymph # (Auto) [place] # (Auto) Eos # (Auto) Baso # (Auto) Abs Immat Gran (auto) Absolute Neuts (auto) Absolute Nucleated RBC Band Neutrophils % Nucleated RBC % Platelet Estimate Hypochromasia Stomatocytes Schistocytes Puncture Site Right radial ABG pH 7.308 L ABG pCO2 58.6 H ABG pO2 117.7 H ABG PO2/FiO2 Ratio 3.36 ABG HCO3 28.7 H ABG O2 Saturation 97.8 ABG O2 Content 13.4 L ABG Base Excess 1.7 A-a Gradient 63.7 Oxyhemoglobin 97.7 Carboxyhemoglobin 0.3 Methemoglobin 0.3 Reduced Hemoglobin 1.7 Total Hemoglobin 9.6 L O2 Delivery Device Bipap Non-invasive vent O2 Liters/Min Not Reportable Vent Rate 20 FiO2 35 Expiratory Pressure 8 Not Reportable Inspiratory Pressure 20 Not Reportable Sodium Potassium Chloride Carbon Dioxide Anion Gap BUN Creatinine Estim Creat Clear Calc Estimated GFR Glucose POC Capillary Glucose Calcium Total Bilirubin AST ALT Alkaline Phosphatase Total Protein Albumin Hep B Core Total Ab Non-reactive 04/08/24 04/08/24 04/08/24 12:06 17:12 20:41 WBC RBC Hgb Hct MCV MCH MCHC RDW Plt Count MPV Immature Gran % (Auto) Neut % (Auto) Lymph % (Auto) [place] % (Auto) Eos % (Auto) Baso % (Auto) Lymph # (Auto) [place] # (Auto) Eos # (Auto) Baso # (Auto) Abs Immat Gran (auto) Absolute Neuts (auto) Absolute Nucleated RBC Band Neutrophils % Nucleated RBC % Platelet Estimate Hypochromasia Stomatocytes Schistocytes Puncture Site ABG pH ABG pCO2 ABG pO2 ABG PO2/FiO2 Ratio ABG HCO3 ABG O2 Saturation ABG O2 Content ABG Base Excess A-a Gradient Oxyhemoglobin Carboxyhemoglobin Methemoglobin Reduced Hemoglobin Total Hemoglobin O2 Delivery Device O2 Liters/Min Vent Rate FiO2 Expiratory Pressure Inspiratory Pressure Sodium Potassium Chloride Carbon Dioxide Anion Gap BUN Creatinine Estim Creat Clear Calc Estimated GFR Glucose POC Capillary Glucose 171 H 129 H 185 H Calcium Total Bilirubin AST ALT Alkaline Phosphatase Total Protein Albumin Hep B Core Total Ab 04/09/24 04/09/24 05:09 07:35 WBC 7.0 RBC 2.89 L Hgb 8.7 L Hct 29.8 L MCV 103.1 H MCH 30.1 MCHC 29.2 L RDW 14.4 Plt Count 221 MPV 9.8 Immature Gran % (Auto) 0.3 Neut % (Auto) 75.6 H Lymph % (Auto) 13.1 L [place] % (Auto) 6.8 Eos % (Auto) 3.6 Baso % (Auto) 0.6 Lymph # (Auto) 0.92 [place] # (Auto) 0.5 Eos # (Auto) 0.3 Baso # (Auto) 0.0 Abs Immat Gran (auto) 0.02 Absolute Neuts (auto) 5.3 Absolute Nucleated RBC 0.000 Band Neutrophils % Not Reportable Nucleated RBC % 0.0 Platelet Estimate Adequate Hypochromasia 1+ Stomatocytes 1+ Schistocytes None seen Puncture Site ABG pH ABG pCO2 ABG pO2 ABG PO2/FiO2 Ratio ABG HCO3 ABG O2 Saturation ABG O2 Content ABG Base Excess A-a Gradient Oxyhemoglobin Carboxyhemoglobin Methemoglobin Reduced Hemoglobin Total Hemoglobin O2 Delivery Device O2 Liters/Min Vent Rate FiO2 Expiratory Pressure Inspiratory Pressure Sodium 145 Potassium 5.5 H Chloride 110 H Carbon Dioxide 30 Anion Gap 5 BUN 48 H Creatinine 1.83 H Estim Creat Clear Calc 36 Estimated GFR 28 L Glucose 130 H POC Capillary Glucose 114 H Calcium 9.4 Total Bilirubin 0.4 AST 19 ALT 14 Alkaline Phosphatase 83 Total Protein 6.0 L Albumin 3.3 L Hep B Core Total Ab Quality VTE Prophylaxis VTE prophylaxis: pharmacologic ordered
--- NOTE | 2024-04-09 11:15 | P.PNNP_ITS ---
Subjective Date/time seen: 04/09/24 11:15 Objective Data Vital Signs Vital Signs: Vital Signs Temp Pulse Resp BP Pulse Ox O2 Del Method O2 Flow Rate 04/09/24 08:29 79 04/09/24 08:28 76 04/09/24 08:28 79 18 97 Nasal Cannula 3 04/09/24 08:26 97.4 F L 76 18 157/79 H 97 04/09/24 05:07 97.2 F L 75 22 H 128/78 100 04/09/24 04:00 72 04/09/24 01:59 77 24 H 98 04/09/24 00:00 80 04/08/24 22:55 74 21 H 98 04/08/24 20:38 97 F L 80 20 144/54 H 99 04/08/24 20:21 84 04/08/24 20:00 84 Intake/Output Intake/Output: Intake & Output 04/06/24 04/07/24 04/08/24 04/09/24 23:59 23:59 23:59 23:59 Intake Total 3512 880 2272 600 Output Total 200 Balance 9400 558 9782 600 Meds/Results Medications: Active Medications Generic Name Dose Route Start Last Admin Trade Name Freq PRN Reason Stop Dose Admin Acetaminophen 650 mg 04/03/24 10:34 04/06/24 09:54 Acetaminophen 325 Mg Tablet PO 650 mg Q4H PRN Administration Headache Hydrocodone Bitart/Acetaminophen 1 tab 04/03/24 02:27 04/03/24 02:47 Hydrocodone/Acetaminophen (*Crx) 7.5-325 Mg Tablet PO 1 tab Q6H PRN Administration Pain Rated 7-10 Albuterol/Ipratropium 3 ml 04/02/24 00:22 Ipratropium 0.5 Mg/Albuterol Sulfate 2.5 Mg Ampul.Neb 3 Ml INHALATION Q4HRT PRN shortness of breath/Wheezing Allopurinol 300 mg 04/03/24 09:00 04/09/24 08:28 Allopurinol 100 Mg Tablet PO 300 mg QAM PILO Administration Allopurinol 200 mg 04/03/24 18:00 04/09/24 17:14 Allopurinol 100 Mg Tablet PO 200 mg QPM PILO Administration Apixaban 5 mg 04/03/24 21:00 04/09/24 08:28 Apixaban 5 Mg Tablet PO 5 mg Q12HR PILO Administration Atorvastatin Calcium 80 mg 04/03/24 09:00 04/09/24 08:28 Atorvastatin 40 Mg Tablet PO 80 mg DAILY PILO Administration Buspirone HCl 5 mg 04/02/24 17:00 04/09/24 17:15 Buspirone Hcl 5 Mg Tablet PO 5 mg BID PILO Administration Ezetimibe 10 mg 04/03/24 09:00 04/09/24 08:29 Ezetimibe 10 Mg Tablet PO 10 mg DAILY PILO Administration Empagliflozin 10 mg 04/03/24 09:00 04/09/24 08:28 Empagliflozin 10 Mg Tablet PO 10 mg DAILY PILO Administration Escitalopram Oxalate 20 mg 04/03/24 09:00 04/09/24 08:28 Escitalopram Oxalate 10 Mg Tablet PO 20 mg DAILY PILO Administration Furosemide 40 mg 04/06/24 17:00 Furosemide Inj 40 Mg/4 Ml Vial IV PUSH BID PILO Gabapentin 300 mg 04/02/24 13:00 04/09/24 17:15 Gabapentin 300 Mg Capsule PO 300 mg TID PILO Administration Insulin Aspart 4 - 8 units 04/06/24 17:00 04/09/24 17:15 Insulin Aspart (*Bkc) 100 Units/Ml SUB-Q Not Given TIDWM [facility] Protocol Insulin Aspart 2 - 4 units 04/06/24 21:00 04/09/24 05:43 Insulin Aspart (*Bkc) 100 Units/Ml SUB-Q Not Given HS [facility] Protocol Isosorbide Mononitrate 120 mg 04/03/24 09:00 04/09/24 08:29 Isosorbide Mononitrate 60 Mg Tab.Er.24h PO 120 mg DAILY PILO Administration Levothyroxine Sodium 100 mcg 04/03/24 06:30 04/09/24 06:33 Levothyroxine Sodium 100 Mcg Tablet PO 100 mcg DAILY@0630 [facility] Administration Melatonin 5 mg 04/02/24 00:22 Melatonin 5 Mg Tablet PO HS PRN Insomnia Metoprolol Tartrate 12.5 mg 04/02/24 00:30 04/09/24 08:29 Metoprolol Tartrate 12.5 Mg Tablet PO 12.5 mg Q12HR PILO Administration Prochlorperazine Edisylate 10 mg 04/02/24 00:22 Prochlorperazine Edisylate 10 Mg/2 Ml Vial IV PUSH Q6H PRN Nausea And Vomiting Sacubitril/Valsartan 1 tab 04/02/24 21:00 04/05/24 08:13 Sacubitril/Valsartan 97-103 Mg Tablet PO 1 tab Q12HR PILO Administration Radiology Results: ITS Impressions Chest CTA 04/01/24 19:46 IMPRESSION: No CT evidence of acute pulmonary embolus. No acute process detected in the chest. Venous Doppler Study 04/01/24 19:59 IMPRESSION: Patent bilateral lower extremity veins. No evidence of deep venous thrombosis. Renal Ultrasound 04/05/24 14:58 IMPRESSION: 1. Normal right kidney. 2. Severe atrophy of left kidney. Chest X-Ray 04/06/24 12:47 IMPRESSION: 1. Likely congestive heart failure with cardiomegaly, pulmonary vascular congestion and mild pulmonary edema in the lower lung zones. Labs Labs: Laboratory Tests 05:09 WBC 7.0 Hgb 8.7 L Hct 29.8 L Plt Count 221 Sodium 145 Potassium 5.5 H Chloride 110 H Carbon Dioxide 30 Anion Gap 5 BUN 48 H Creatinine 1.83 H Estim Creat Clear Calc 36 Estimated GFR 28 L Glucose 130 H Calcium 9.4 Total Bilirubin 0.4 AST 19 ALT 14 Alkaline Phosphatase 83 Total Protein 6.0 L Albumin 3.3 L
[2024-04-09 12:12] LABS: Anion Gap 5 mmol/L (4-12); Blood Urea Nitrogen 47 mg/dL (7-17); Calcium 9.6 mg/dL (8.4-10.2); Carbon Dioxide 30 mmol/L (22-30); Chloride 109 mmol/L (98-107); Estimated CRCL calculation 37 ml/min; Estimated Glomerular Filt Rate 29; Glucose 142 mg/dL (65-110); Potassium 5.2 mmol/L (3.4-5.0); Sodium 144 mmol/L (137-145)
[2024-04-09 12:37] LABS: Glucose Point of Care 126 mg/dl (65-105)
--- NOTE | 2024-04-09 15:25 | PCRCNOTE ---
Pt is currently being arranged with a home NIV AVAPS unit thru [employer]. We are awaiting approval from insurance. Luh, 04/09/24 she will trial her [employer] home unit with apnea link for monitoring and ABG in AM.
[2024-04-09 16:18] LABS: Glucose Point of Care 152 mg/dl (65-105)
[2024-04-09] MEDS: allopurinoL 100 MG TABLET 200 MG PO (17:14)
[2024-04-09 21:39] LABS: Glucose Point of Care 187 mg/dl (65-105)
[2024-04-10] VITALS (12 sets, daily range): BP systolic 158–174; BP diastolic 62–96; PULSE 73–86; RESP 18–20; TEMP 36.1–36.9; O2SAT 93–100
--- NOTE | 2024-04-10 03:21 | PCRCNOTE ---
Pt took BIPAP off for about 1 1/2 hour. BIPAP placed back on at 0310 04/10/24.
[2024-04-10 05:36] LABS: Alveolar/Arterial O2 Gradient 143.5 mmHg; Base Excess ABG 3.5 mEq/l (+/-2.0); Fractional Inspired Oxygen 36 %; HCO3 ABG 30.3 mEq/l (22.0-26.0); Oxygen Content ABG 9.6 %vol (16.0-22.0); PCO2 ABG 59.8 mmHg (35.0-45.0); PO2 FiO2 Ratio Arterial Blood 1.22 %; Total Hemoglobin 8.9 g/dL (12.0-18.0); pH ABG 7.323 (7.350-7.450)
[2024-04-10] MEDS: LEVOTHYROXINE SODIUM 100 MCG TABLET PO (06:09)
[2024-04-10] MEDS: HYDROcodone/acetaminophen (*CRX) 7.5-325 MG TABLET 1 TAB PO (06:13)
[2024-04-10 06:31] LABS: Alanine Aminotransferase 14 U/L (6-35); Albumin Level 3.5 g/dL (3.5-5.1); Alkaline Phosphatase 90 U/L (38-126); Anion Gap 8 mmol/L (4-12); Aspartate Amino Transferase 18 U/L (14-36); Bilirubin,Total 0.5 mg/dL (0.2-1.3); Blood Urea Nitrogen 45 mg/dL (7-17); Calcium 9.4 mg/dL (8.4-10.2); Carbon Dioxide 29 mmol/L (22-30); Chloride 108 mmol/L (98-107); Estimated CRCL calculation 42 ml/min; Estimated Glomerular Filt Rate 33; Glucose 117 mg/dL (65-110); Potassium 5.2 mmol/L (3.4-5.0); Sodium 145 mmol/L (137-145)
[2024-04-10 06:36] LABS: Device OTHER DEVICE; Modified Allen's Test Pass; Oxygen Saturation ABG 74.8 % (95.0-100.0); Oxyhemoglobin 76.3 % THb (90.0-100.0); PO2 ABG 43.8 mmHg (80.0-100.0); Site Drawn LEFT RADIAL
[2024-04-10 07:48] LABS: Glucose Point of Care 113 mg/dl (65-105)
[2024-04-10 08:02] LABS: Basophils Percent Auto 0.5 % (0.2-1.2); Eosinophils Absolute Auto 0.2 K/mm3 (0-0.3); Eosinophils Percent Auto 2.6 % (0-4.4); Hematocrit 28.5 % (37.0-47.0); Hemoglobin 8.6 g/dL (12.0-15.0); Immature Granulocyte Absolute 0.03 K/mm3 (0.00-0.031); Immature Granulocyte Percent A 0.3 % (0-0.5); Lymphocytes Absolute Auto 0.92 K/mm3 (0.9-3.2); Lymphocytes Percent Auto 10.6 % (18.3-44.2); Mean Corpuscular HGB Conc 30.2 g/dl (32-36); Mean Corpuscular Hemoglobin 30.4 pg (26-34); Mean Corpuscular Volume 100.7 fl (80-100); Mean Platelet Volume 10.1 fl (7.4-10.4); Monocytes Absolute Auto 0.6 K/mm3 (0.1-0.6); Monocytes Percent Auto 7.1 % (2.6-8.5); Neutrophils Absolute Auto 6.9 K/mm3 (1.3-6.7); Neutrophils Percent Auto 78.9 % (45.5-73.1); Platelet Count Result 219 k/mm3 (150-375); Red Blood Count 2.83 M/mm3 (4.2-5.4); Red Cell Distribution Width 14.5 % (11.5-14.5); White Blood Count 8.7 K/mm3 (4.5-10.0)
--- NOTE | 2024-04-10 09:11 | P.PNPL_ITS ---
Progress Note: A&P Assessment and Plan (1) Acute hypoxic respiratory failure: Code(s): J96.01 - Acute respiratory failure with hypoxia Status: Acute (2) Hypercapnic respiratory failure: Code(s): J96.92 - Respiratory failure, unspecified with hypercapnia Status: Acute Assessment and Plan: A 64-year-old female with morbid obesity and a history of sleep apnea, previously managed with CPAP therapy, presented with hypoxemia following a device malfunction approximately six weeks ago. She was diagnosed with atrial fibrillation with a rapid ventricular response and has been treated successfully, returning to normal sinus rhythm. Initial arterial blood gas analysis revealed respiratory acidosis, with a pH of approximately 7.26 and a pCO2 over 60 mmHg. The patient received BiPAP support followed by BiPAP AVAPS, leading to improvement in arterial blood gases, with recent pH levels above 7.3 and pCO2 below 60 mmHg. The patient was placed on a home ventilator unit and underwent an ApneaLink study last night. The ventilator settings include a tidal volume of 500 mL, pressure support range of 10-30 cm H2O, EPAP range of 4-18 cm H2O, and 4 L/min of oxygen bleed-in. The ApneaLink report indicated significant oxyhemoglobin desaturation, with saturation levels below 88% for more than 40% of sleep time. The saturation tracing showed a sudden drop, possibly due to the mask falling off. On physical examination, there has been no change; the patient has a few crackles at the lung bases but no wheezing. A chest CT initially showed prominent pulmonary arteries and cardiomegaly, suggesting pulmonary hypertension. An echocardiogram was of poor quality and could not assess right ventricular function. Today's chest x-ray again showed vascular congestion, cardiomegaly, and prominent pulmonary arteries, but no definitive evidence of infiltrates or pleural effusions. The patient is being treated for congestive heart failure, and cardiology services evaluated her upon hospital admission. It is likely that her nocturnal hypoxemia is partly due to pulmonary hypertension, necessitating supplemental oxygen at night in addition to the home ventilator. It is unclear whether pulmonary edema, as suggested by today's x-ray, is also contributing to her nocturnal hypoxemia, and adjustments to her cardiac medications may be needed. Plan: Repeat the ApneaLink study tonight using the home ventilator and supplemental oxygen at 4 liters/minute following a mask fitting. Will continue to follow the patient along with you. (3) CHF (congestive heart failure): Code(s): I50.9 - Heart failure, unspecified Status: Acute (4) Atrial fibrillation with RVR: Code(s): I48.91 - Unspecified atrial fibrillation Status: Acute (5) Acute on chronic systolic heart failure: Code(s): I50.23 - Acute on chronic systolic (congestive) heart failure Status: Acute Subjective Date/time seen: 04/10/24 09:11 Interval history: Patient has no new respiratory symptoms this a.m.. Used home ventilator while undergoing ApneaLink study last night. She had some problems with mask fitting and according to the patient with the mask came off. She has no change in shortness of breath this a.m.. Significant oxyhemoglobin desaturation noted on home ventilator and oxygen 4 liters/minute bled in. Review of Systems Review of Systems: All systems reviewed & are unremarkable except as noted in HPI and below (HPI and below) Exam Narrative: GENERAL APPEARANCE: Well developed, well nourished, alert and cooperative, obese and appears to be in no acute distress while receiving a BiPAP support and supplemental oxygen SKIN: Inspection of the skin reveals no rashes, ulcerations or petechiae. HEENT: Sclerae anicteric and conjunctivae pink and moist. Extraocular movements were intact and pupils were equal, round, and reactive to light. The oral mucosa, hard and soft palate, tongue and posterior pharynx were normal. NECK: Supple. There was no thyroid enlargement, and no tenderness, or masses were felt. CHEST: Normal AP diameter and normal contour without any kyphoscoliosis. LUNGS: Auscultation of the lungs revealed normal breath sounds without any other adventitious sounds or rubs. CARDIAC: There was a regular rate and rhythm without any murmurs, gallops, rubs. ABDOMEN: Soft and nontender with normal bowel sounds. There was no organomegaly. LYMPH NODES: No lymphadenopathy was appreciated in the neck. EXTREMITIES: No cyanosis, clubbing or edema. NEUROLOGIC: Alert and oriented x 3. Normal affect. Objective Data Vital Signs Vital Signs: Vital Signs - 24 hr 04/09/24 12:00 04/09/24 14:12 04/09/24 16:00 Temperature 36.4 C Pulse Rate 68 73 82 Respiratory Rate 18 Blood Pressure 153/71 H Pulse Oximetry 99 Oxygen Delivery Oxygen Flow Rate 04/09/24 20:00 04/09/24 20:00 04/09/24 20:29 Temperature Pulse Rate 77 88 Respiratory Rate Blood Pressure Pulse Oximetry 100 Oxygen Delivery Nasal Cannula Oxygen Flow Rate 3.5 04/09/24 20:49 04/10/24 00:00 04/10/24 04:00 Temperature 36.4 C L Pulse Rate 80 73 83 Respiratory Rate 18 Blood Pressure 158/53 H Pulse Oximetry 99 Oxygen Delivery Oxygen Flow Rate 04/10/24 05:56 Temperature 36.9 C Pulse Rate 78 Respiratory Rate 20 Blood Pressure 164/77 H Pulse Oximetry 93 Oxygen Delivery Oxygen Flow Rate Intake/Output Intake/Output: Intake & Output 04/07/24 04/08/24 04/09/24 04/10/24 23:59 23:59 23:59 23:59 Intake Total 880 1650 840 Output Total 200 0 0 Balance 880 1450 840 0 Meds/Results Medications: Active Medications Generic Name Dose Route Start Last Admin Trade Name Freq PRN Reason Stop Dose Admin Acetaminophen 650 mg 04/03/24 10:34 04/06/24 09:54 Acetaminophen 325 Mg Tablet PO 650 mg Q4H PRN Administration Headache Hydrocodone Bitart/Acetaminophen 1 tab 04/03/24 02:27 04/10/24 06:13 Hydrocodone/Acetaminophen (*Crx) 7.5-325 Mg Tablet PO 1 tab Q6H PRN Administration Pain Rated 7-10 Albuterol/Ipratropium 3 ml 04/02/24 00:22 Ipratropium 0.5 Mg/Albuterol Sulfate 2.5 Mg Ampul.Neb 3 Ml INHALATION Q4HRT PRN shortness of breath/Wheezing Allopurinol 300 mg 04/03/24 09:00 04/09/24 08:28 Allopurinol 100 Mg Tablet PO 300 mg QAM P[facility]O Administration Allopurinol 200 mg 04/03/24 18:00 04/09/24 17:14 Allopurinol 100 Mg Tablet PO 200 mg QPM [facility] Administration Apixaban 5 mg 04/03/24 21:00 04/09/24 20:29 Apixaban 5 Mg Tablet PO 5 mg Q12HR [facility] Administration Atorvastatin Calcium 80 mg 04/03/24 09:00 04/09/24 08:28 Atorvastatin 40 Mg Tablet PO 80 mg DAILY [facility] Administration Buspirone HCl 5 mg 04/02/24 17:00 04/09/24 17:15 Buspirone Hcl 5 Mg Tablet PO 5 mg BID [facility] Administration Ezetimibe 10 mg 04/03/24 09:00 04/09/24 08:29 Ezetimibe 10 Mg Tablet PO 10 mg DAILY [facility] Administration Empagliflozin 10 mg 04/03/24 09:00 04/09/24 08:28 Empagliflozin 10 Mg Tablet PO 10 mg DAILY [facility] Administration Escitalopram Oxalate 20 mg 04/03/24 09:00 04/09/24 08:28 Escitalopram Oxalate 10 Mg Tablet PO 20 mg DAILY [facility] Administration Furosemide 40 mg 04/10/24 09:00 Furosemide Inj 40 Mg/4 Ml Vial IV PUSH BID [facility] Gabapentin 300 mg 04/02/24 13:00 04/09/24 17:15 Gabapentin 300 Mg Capsule PO 300 mg TID [facility] Administration Insulin Aspart 4 - 8 units 04/06/24 17:00 04/10/24 07:50 Insulin Aspart (*Bkc) 100 Units/Ml SUB-Q Not Given TIDWM [facility] Protocol Insulin Aspart 2 - 4 units 04/06/24 21:00 04/09/24 22:51 Insulin Aspart (*Bkc) 100 Units/Ml SUB-Q Not Given HS [facility] Protocol Isosorbide Mononitrate 120 mg 04/03/24 09:00 04/09/24 08:29 Isosorbide Mononitrate 60 Mg Tab.Er.24h PO 120 mg DAILY [facility] Administration Levothyroxine Sodium 100 mcg 04/03/24 06:30 04/10/24 06:09 Levothyroxine Sodium 100 Mcg Tablet PO 100 mcg DAILY@0630 [facility] Administration Melatonin 5 mg 04/02/24 00:22 Melatonin 5 Mg Tablet PO HS PRN Insomnia Metoprolol Tartrate 12.5 mg 04/02/24 00:30 04/09/24 20:29 Metoprolol Tartrate 12.5 Mg Tablet PO 12.5 mg Q12HR [facility] Administration Prochlorperazine Edisylate 10 mg 04/02/24 00:22 Prochlorperazine Edisylate 10 Mg/2 Ml Vial IV PUSH Q6H PRN Nausea And Vomiting Sacubitril/Valsartan 1 tab 04/02/24 21:00 04/05/24 08:13 Sacubitril/Valsartan 97-103 Mg Tablet PO 1 tab Q12HR [facility] Administration Radiology Results: ITS Impressions Chest CTA 04/01/24 19:46 IMPRESSION: No CT evidence of acute pulmonary embolus. No acute process detected in the chest. Venous Doppler Study 04/01/24 19:59 IMPRESSION: Patent bilateral lower extremity veins. No evidence of deep venous thrombosis. Renal Ultrasound 04/05/24 14:58 IMPRESSION: 1. Normal right kidney. 2. Severe atrophy of left kidney. Chest X-Ray 04/10/24 08:48 IMPRESSION: 1. Likely congestive heart failure with cardiomegaly and mild pulmonary edema. 2. Atelectasis versus less likely pneumonia in the left lower lung zone. Labs Labs: Laboratory Results - last 24 hr 04/09/24 04/09/24 04/09/24 11:44 12:28 16:12 WBC RBC Hgb Hct MCV MCH MCHC RDW Plt Count MPV Immature Gran % (Auto) Neut % (Auto) Lymph % (Auto) [place] % (Auto) Eos % (Auto) Baso % (Auto) Lymph # (Auto) [place] # (Auto) Eos # (Auto) Baso # (Auto) Abs Immat Gran (auto) Absolute Neuts (auto) Absolute Nucleated RBC Nucleated RBC % Puncture Site ABG pH ABG pCO2 ABG pO2 ABG PO2/FiO2 Ratio ABG HCO3 ABG O2 Saturation ABG O2 Content ABG Base Excess A-a Gradient Oxyhemoglobin Total Hemoglobin O2 Delivery Device O2 Liters/Min FiO2 Sodium 144 Potassium 5.2 H Chloride 109 H Carbon Dioxide 30 Anion Gap 5 BUN 47 H Creatinine 1.77 H Estim Creat Clear Calc 37 Estimated GFR 29 L Glucose 142 H POC Capillary Glucose 126 H 152 H Calcium 9.6 Total Bilirubin AST ALT Alkaline Phosphatase Total Protein Albumin 04/09/24 04/10/24 04/10/24 19:39 05:32 06:06 WBC 8.7 RBC 2.83 L Hgb 8.6 L Hct 28.5 L MCV 100.7 H MCH 30.4 MCHC 30.2 L RDW 14.5 Plt Count 219 MPV 10.1 Immature Gran % (Auto) 0.3 Neut % (Auto) 78.9 H Lymph % (Auto) 10.6 L [place] % (Auto) 7.1 Eos % (Auto) 2.6 Baso % (Auto) 0.5 Lymph # (Auto) 0.92 [place] # (Auto) 0.6 Eos # (Auto) 0.2 Baso # (Auto) 0.0 Abs Immat Gran (auto) 0.03 Absolute Neuts (auto) 6.9 H Absolute Nucleated RBC 0.000 Nucleated RBC % 0.0 Puncture Site Left radial ABG pH 7.323 L ABG pCO2 59.8 H ABG pO2 43.8 L* ABG PO2/FiO2 Ratio 1.22 ABG HCO3 30.3 H ABG O2 Saturation 74.8 L* ABG O2 Content 9.6 L ABG Base Excess 3.5 A-a Gradient 143.5 Oxyhemoglobin 76.3 L* Total Hemoglobin 8.9 L O2 Delivery Device Other device O2 Liters/Min 4.0 FiO2 36 Sodium 145 Potassium 5.2 H Chloride 108 H Carbon Dioxide 29 Anion Gap 8 BUN 45 H Creatinine 1.56 H Estim Creat Clear Calc 42 Estimated GFR 33 L Glucose 117 H POC Capillary Glucose 187 H Calcium 9.4 Total Bilirubin 0.5 AST 18 ALT 14 Alkaline Phosphatase 90 Total Protein 6.0 L Albumin 3.5 04/10/24 07:45 WBC RBC Hgb Hct MCV MCH MCHC RDW Plt Count MPV Immature Gran % (Auto) Neut % (Auto) Lymph % (Auto) [place] % (Auto) Eos % (Auto) Baso % (Auto) Lymph # (Auto) [place] # (Auto) Eos # (Auto) Baso # (Auto) Abs Immat Gran (auto) Absolute Neuts (auto) Absolute Nucleated RBC Nucleated RBC % Puncture Site ABG pH ABG pCO2 ABG pO2 ABG PO2/FiO2 Ratio ABG HCO3 ABG O2 Saturation ABG O2 Content ABG Base Excess A-a Gradient Oxyhemoglobin Total Hemoglobin O2 Delivery Device O2 Liters/Min FiO2 Sodium Potassium Chloride Carbon Dioxide Anion Gap BUN Creatinine Estim Creat Clear Calc Estimated GFR Glucose POC Capillary Glucose 113 H Calcium Total Bilirubin AST ALT Alkaline Phosphatase Total Protein Albumin
[2024-04-10] MEDS: allopurinoL 100 MG TABLET 300 MG PO (09:49)
[2024-04-10] MEDS: ATORVASTATIN 40 MG TABLET 80 MG PO (09:49)
[2024-04-10] MEDS: ISOSORBIDE MONONITRATE 60 MG TAB.ER.24H 120 MG PO (09:50)
[2024-04-10] MEDS: METOPROLOL TARTRATE 12.5 MG TABLET PO ×2 (09:50→20:42)
[2024-04-10] MEDS: EMPAGLIFLOZIN 10 MG TABLET PO (09:50)
[2024-04-10] MEDS: GABAPENTIN 300 MG CAPSULE PO ×3 (09:50→16:38)
[2024-04-10] MEDS: EZETIMIBE 10 MG TABLET PO (09:50)
[2024-04-10] MEDS: ESCITALOPRAM OXALATE 10 MG TABLET 20 MG PO (09:51)
[2024-04-10] MEDS: APIXABAN 5 MG TABLET PO ×2 (09:51→20:42)
[2024-04-10] MEDS: busPIRone HCL 5 MG TABLET PO ×2 (09:53→16:38)
[2024-04-10] MEDS: FUROSEMIDE INJ 40 MG/4 ML VIAL IV PUSH ×2 (09:53→16:40)
--- NOTE | 2024-04-10 10:51 | P.PNIM_ITS ---
Progress Note: A&P Assessment and Plan (1) Acute hypoxic respiratory failure: Code(s): J96.01 - Acute respiratory failure with hypoxia Status: Acute Assessment and Plan: * CTA 04/01 was negative for PE * CXR 04/06 showing congestive heart failure with cardiomegaly, pulmonary vascular congestion and mild pulmonary edema in the lower lung zones * Hx of DAMI wears Cpap at bedtime however her unit is not working at home. Considering her hypercapnia she would benefit from Bipap in AVAPS instead of Cpap. * TTE shown LVEF of 40-45% * ABG on admission showing pH 7.177, pCO2 78.2, pO2 76.5, Bicarb 28.3. Patient was placed on continuous bipap with follow up ABG showing 7.254, PCO2 61.8, pO2 69.9, bicarb 26.2 ABG on am labs show pH 7.323, pCO2 59.8, pO2 43.8, HCO3 30.3. Oxyhemoglobin 76.3. Significant decrease in oxyhemoglobin likely due to mask coming off and improper fit. * Pulmonology consulted Repeat the ApneaLink study tonight using the home ventilator and supplemental oxygen at 4 liters/minute following a mask fitting. (2) Atrial fibrillation with RVR: Code(s): I48.91 - Unspecified atrial fibrillation Status: Acute Assessment and Plan: * New onset afib * ChadsVasc score 6 (age 64=1, congestive heart failure=1, hypertension=1, DM=1, CAD=1, female sex=1). She was started on heparin drip. Stop heparin drip and start Eliquis 5 mg p.o. b.i.d. * continue eliquis and metoprolol * Echo shown LVEF 40-45% * Cardiology following Plan for AIDEN guided cardioversion as outpatient after 4 weeks of uninterrupted anticoagulation with Eliquis Scheduled 05/10/ (3) CHF (congestive heart failure): Code(s): I50.9 - Heart failure, unspecified Status: Acute Assessment and Plan: * Echo shown LVEF of 40-45% per Cardiology notation * Continue Jardiance and Metoprolol * Entresto and Lasix resumed as WILLIAN has resolved, Cr back to baseline * CXR showing congestive heart failure with cardiomegaly, pulmonary vascular congestion and mild pulmonary edema in the lower lung zones (4) WILLIAN (acute kidney injury): Code(s): N17.9 - Acute kidney failure, unspecified Status: Acute Assessment and Plan: * BUN/Cr 45/1.56 on am labs * Baseline creatinine 1.80-2.30 * Lasix and Entresto resumed * Avoid nephrotoxic medication * Nephrology following * Continue to trend (5) Hypothyroidism: Code(s): E03.9 - Hypothyroidism, unspecified Status: Acute Assessment and Plan: * Continue synthroid (6) Diabetes: Code(s): E11.9 - Type 2 diabetes mellitus without complications Status: Chronic Assessment and Plan: * Blood sugars ranging 102-153 * Will obtain Hgb A1C * Accu checks AC/HS * High dose SSI ordered * hypoglycemic protocol in place * Diabetic diet ordered Time Spent With Patient Time with patient: 25 - 35 minutes Subjective Date/time seen: 04/10/24 10:51 Interval history: 64yo F with a past medical history signficant for CAD s/p PCI, CHFrEF, dyslipidemia, obesity, DAMI, Hypertension, and DM2 who presents to the hospital for shortness of breath and palpitations. Patient is pleasant sitting up in her chair. she denies any shortness of breath on her current oxygen supplementation. She has no other complaints denying chest pain, palpitations, nausea/vomiting and abdominal pain. Review of Systems Review of Systems: All systems reviewed & are unremarkable except as noted in HPI and below Exam Narrative: AF HR 78 RR 20 SpO2 93 3.5 L NC BP 164/77 General: female in no acute respiratory distress who is nontoxic appearing, sitting up in chair HEENT: Normocephalic. Atraumatic. Extraocular movement intact. Sclera clear and anicteric. No facial asymmetry. Chest: Lungs are slightly diminished to auscultation bilaterally. No wheezes or crackles. CV: Heart was regular rate and rhythm. S1-S2. No murmurs, gallops, or rubs. Abd: Abdomen was soft. Nontender. Nondistended. Positive bowel sounds. No organomegaly or masses. Ext: No clubbing, cyanosis, or edema. 2+ DP pulses bilaterally. Neuro: Patient is alert. Speech is clear. Objective Data Vital Signs Vital Signs: Vital Signs - 24 hr 04/09/24 12:00 04/09/24 14:12 04/09/24 16:00 Temperature 97.6 F Pulse Rate 68 73 82 Respiratory Rate 18 Blood Pressure 153/71 H Pulse Oximetry 99 Oxygen Delivery Oxygen Flow Rate 04/09/24 20:00 04/09/24 20:00 04/09/24 20:29 Temperature Pulse Rate 77 88 Respiratory Rate Blood Pressure Pulse Oximetry 100 Oxygen Delivery Nasal Cannula Oxygen Flow Rate 3.5 04/09/24 20:49 04/10/24 00:00 04/10/24 04:00 Temperature 97.5 F L Pulse Rate 80 73 83 Respiratory Rate 18 Blood Pressure 158/53 H Pulse Oximetry 99 Oxygen Delivery Oxygen Flow Rate 04/10/24 05:56 04/10/24 08:04 04/10/24 09:50 Temperature 98.4 F Pulse Rate 78 83 83 Respiratory Rate 20 Blood Pressure 164/77 H Pulse Oximetry 93 Oxygen Delivery Oxygen Flow Rate 04/10/24 09:53 04/10/24 09:53 Temperature Pulse Rate 83 Respiratory Rate 20 Blood Pressure Pulse Oximetry 93 Oxygen Delivery Nasal Cannula Oxygen Flow Rate 3.5 Intake/Output Intake/Output: Intake & Output 04/07/24 04/08/24 04/09/24 04/10/24 23:59 23:59 23:59 23:59 Intake Total 880 1650 840 118 Output Total 200 0 0 Balance 880 1450 840 118 Meds/Results Medications: Active Medications Generic Name Dose Route Start Last Admin Trade Name Freq PRN Reason Stop Dose Admin Acetaminophen 650 mg 04/03/24 10:34 04/06/24 09:54 Acetaminophen 325 Mg Tablet PO 650 mg Q4H PRN Administration Headache Hydrocodone Bitart/Acetaminophen 1 tab 04/03/24 02:27 04/10/24 06:13 Hydrocodone/Acetaminophen (*Crx) 7.5-325 Mg Tablet PO 1 tab Q6H PRN Administration Pain Rated 7-10 Albuterol/Ipratropium 3 ml 04/02/24 00:22 Ipratropium 0.5 Mg/Albuterol Sulfate 2.5 Mg Ampul.Neb 3 Ml INHALATION Q4HRT PRN shortness of breath/Wheezing Allopurinol 300 mg 04/03/24 09:00 04/10/24 09:49 Allopurinol 100 Mg Tablet PO 300 mg QAM [facility] Administration Allopurinol 200 mg 04/03/24 18:00 04/09/24 17:14 Allopurinol 100 Mg Tablet PO 200 mg QPM [facility] Administration Apixaban 5 mg 04/03/24 21:00 04/10/24 09:51 Apixaban 5 Mg Tablet PO 5 mg Q12HR [facility] Administration Atorvastatin Calcium 80 mg 04/03/24 09:00 04/10/24 09:49 Atorvastatin 40 Mg Tablet PO 80 mg DAILY [facility] Administration Buspirone HCl 5 mg 04/02/24 17:00 04/10/24 09:53 Buspirone Hcl 5 Mg Tablet PO 5 mg BID [facility] Administration Ezetimibe 10 mg 04/03/24 09:00 04/10/24 09:50 Ezetimibe 10 Mg Tablet PO 10 mg DAILY [facility] Administration Empagliflozin 10 mg 04/03/24 09:00 04/10/24 09:50 Empagliflozin 10 Mg Tablet PO 10 mg DAILY [facility] Administration Escitalopram Oxalate 20 mg 04/03/24 09:00 04/10/24 09:51 Escitalopram Oxalate 10 Mg Tablet PO 20 mg DAILY [facility] Administration Furosemide 40 mg 04/10/24 09:00 04/10/24 09:53 Furosemide Inj 40 Mg/4 Ml Vial IV PUSH 40 mg BID [facility] Administration Gabapentin 300 mg 04/02/24 13:00 04/10/24 09:50 Gabapentin 300 Mg Capsule PO 300 mg TID [facility] Administration Insulin Aspart 4 - 8 units 04/06/24 17:00 04/10/24 07:50 Insulin Aspart (*Bkc) 100 Units/Ml SUB-Q Not Given [facility] Protocol Insulin Aspart 2 - 4 units 04/06/24 21:00 04/09/24 22:51 Insulin Aspart (*Bkc) 100 Units/Ml SUB-Q Not Given HS [facility] Protocol Isosorbide Mononitrate 120 mg 04/03/24 09:00 04/10/24 09:50 Isosorbide Mononitrate 60 Mg Tab.Er.24h PO 120 mg DAILY [facility] Administration Levothyroxine Sodium 100 mcg 04/03/24 06:30 04/10/24 06:09 Levothyroxine Sodium 100 Mcg Tablet PO 100 mcg DAILY@0630 [facility] Administration Melatonin 5 mg 04/02/24 00:22 Melatonin 5 Mg Tablet PO HS PRN Insomnia Metoprolol Tartrate 12.5 mg 04/02/24 00:30 04/10/24 09:50 Metoprolol Tartrate 12.5 Mg Tablet PO 12.5 mg Q12HR [facility] Administration Prochlorperazine Edisylate 10 mg 04/02/24 00:22 Prochlorperazine Edisylate 10 Mg/2 Ml Vial IV PUSH Q6H PRN Nausea And Vomiting Sacubitril/Valsartan 1 tab 04/02/24 21:00 04/05/24 08:13 Sacubitril/Valsartan 97-103 Mg Tablet PO 1 tab Q12HR [facility] Administration Radiology Results: ITS Impressions Chest CTA 04/01/24 19:46 IMPRESSION: No CT evidence of acute pulmonary embolus. No acute process detected in the chest. Venous Doppler Study 04/01/24 19:59 IMPRESSION: Patent bilateral lower extremity veins. No evidence of deep venous thrombosis. Renal Ultrasound 04/05/24 14:58 IMPRESSION: 1. Normal right kidney. 2. Severe atrophy of left kidney. Chest X-Ray 04/10/24 08:48 IMPRESSION: 1. Likely congestive heart failure with cardiomegaly and mild pulmonary edema. 2. Atelectasis versus less likely pneumonia in the left lower lung zone. Labs Labs: Laboratory Results - last 24 hr 04/09/24 04/09/24 04/09/24 11:44 12:28 16:12 WBC RBC Hgb Hct MCV MCH MCHC RDW Plt Count MPV Immature Gran % (Auto) Neut % (Auto) Lymph % (Auto) [place] % (Auto) Eos % (Auto) Baso % (Auto) Lymph # (Auto) [place] # (Auto) Eos # (Auto) Baso # (Auto) Abs Immat Gran (auto) Absolute Neuts (auto) Absolute Nucleated RBC Nucleated RBC % Puncture Site ABG pH ABG pCO2 ABG pO2 ABG PO2/FiO2 Ratio ABG HCO3 ABG O2 Saturation ABG O2 Content ABG Base Excess A-a Gradient Oxyhemoglobin Total Hemoglobin O2 Delivery Device O2 Liters/Min FiO2 Sodium 144 Potassium 5.2 H Chloride 109 H Carbon Dioxide 30 Anion Gap 5 BUN 47 H Creatinine 1.77 H Estim Creat Clear Calc 37 Estimated GFR 29 L Glucose 142 H POC Capillary Glucose 126 H 152 H Calcium 9.6 Total Bilirubin AST ALT Alkaline Phosphatase Total Protein Albumin 04/09/24 04/10/24 04/10/24 19:39 05:32 06:06 WBC 8.7 RBC 2.83 L Hgb 8.6 L Hct 28.5 L MCV 100.7 H MCH 30.4 MCHC 30.2 L RDW 14.5 Plt Count 219 MPV 10.1 Immature Gran % (Auto) 0.3 Neut % (Auto) 78.9 H Lymph % (Auto) 10.6 L [place] % (Auto) 7.1 Eos % (Auto) 2.6 Baso % (Auto) 0.5 Lymph # (Auto) 0.92 [place] # (Auto) 0.6 Eos # (Auto) 0.2 Baso # (Auto) 0.0 Abs Immat Gran (auto) 0.03 Absolute Neuts (auto) 6.9 H Absolute Nucleated RBC 0.000 Nucleated RBC % 0.0 Puncture Site Left radial ABG pH 7.323 L ABG pCO2 59.8 H ABG pO2 43.8 L* ABG PO2/FiO2 Ratio 1.22 ABG HCO3 30.3 H ABG O2 Saturation 74.8 L* ABG O2 Content 9.6 L ABG Base Excess 3.5 A-a Gradient 143.5 Oxyhemoglobin 76.3 L* Total Hemoglobin 8.9 L O2 Delivery Device Other device O2 Liters/Min 4.0 FiO2 36 Sodium 145 Potassium 5.2 H Chloride 108 H Carbon Dioxide 29 Anion Gap 8 BUN 45 H Creatinine 1.56 H Estim Creat Clear Calc 42 Estimated GFR 33 L Glucose 117 H POC Capillary Glucose 187 H Calcium 9.4 Total Bilirubin 0.5 AST 18 ALT 14 Alkaline Phosphatase 90 Total Protein 6.0 L Albumin 3.5 04/10/24 07:45 WBC RBC Hgb Hct MCV MCH MCHC RDW Plt Count MPV Immature Gran % (Auto) Neut % (Auto) Lymph % (Auto) [place] % (Auto) Eos % (Auto) Baso % (Auto) Lymph # (Auto) [place] # (Auto) Eos # (Auto) Baso # (Auto) Abs Immat Gran (auto) Absolute Neuts (auto) Absolute Nucleated RBC Nucleated RBC % Puncture Site ABG pH ABG pCO2 ABG pO2 ABG PO2/FiO2 Ratio ABG HCO3 ABG O2 Saturation ABG O2 Content ABG Base Excess A-a Gradient Oxyhemoglobin Total Hemoglobin O2 Delivery Device O2 Liters/Min FiO2 Sodium Potassium Chloride Carbon Dioxide Anion Gap BUN Creatinine Estim Creat Clear Calc Estimated GFR Glucose POC Capillary Glucose 113 H Calcium Total Bilirubin AST ALT Alkaline Phosphatase Total Protein Albumin Quality VTE Prophylaxis VTE prophylaxis: pharmacologic ordered
[2024-04-10 12:05] LABS: Glucose Point of Care 151 mg/dl (65-105)
--- NOTE | 2024-04-10 13:06 | P.PNNP_ITS ---
Subjective Date/time seen: 04/10/24 13:06 Objective Data Vital Signs Vital Signs: Vital Signs Temp Pulse Resp BP Pulse Ox O2 Del Method O2 Flow Rate 04/10/24 10:45 Nasal Cannula 2 04/10/24 09:53 83 04/10/24 09:53 20 93 Nasal Cannula 3.5 04/10/24 09:50 83 04/10/24 08:04 83 04/10/24 05:56 98.4 F 78 20 164/77 H 93 04/10/24 04:00 83 04/10/24 00:00 73 04/09/24 20:49 97.5 F L 80 18 158/53 H 99 04/09/24 20:29 88 04/09/24 20:00 77 04/09/24 20:00 100 Nasal Cannula 3.5 Intake/Output Intake/Output: Intake & Output 04/07/24 04/08/24 04/09/24 04/10/24 23:59 23:59 23:59 23:59 Intake Total 880 1650 840 358 Output Total 200 0 0 Balance 880 1450 840 358 Meds/Results Medications: Active Medications Generic Name Dose Route Start Last Admin Trade Name Freq PRN Reason Stop Dose Admin Acetaminophen 650 mg 04/03/24 10:34 04/06/24 09:54 Acetaminophen 325 Mg Tablet PO 650 mg Q4H PRN Administration Headache Hydrocodone Bitart/Acetaminophen 1 tab 04/03/24 02:27 04/10/24 06:13 Hydrocodone/Acetaminophen (*Crx) 7.5-325 Mg Tablet PO 1 tab Q6H PRN Administration Pain Rated 7-10 Albuterol/Ipratropium 3 ml 04/02/24 00:22 Ipratropium 0.5 Mg/Albuterol Sulfate 2.5 Mg Ampul.Neb 3 Ml INHALATION Q4HRT PRN shortness of breath/Wheezing Allopurinol 300 mg 04/03/24 09:00 04/10/24 09:49 Allopurinol 100 Mg Tablet PO 300 mg QAM PILO Administration Allopurinol 200 mg 04/03/24 18:00 04/09/24 17:14 Allopurinol 100 Mg Tablet PO 200 mg QPM PILO Administration Apixaban 5 mg 04/03/24 21:00 04/10/24 09:51 Apixaban 5 Mg Tablet PO 5 mg Q12HR PILO Administration Atorvastatin Calcium 80 mg 04/03/24 09:00 04/10/24 09:49 Atorvastatin 40 Mg Tablet PO 80 mg DAILY PILO Administration Buspirone HCl 5 mg 04/02/24 17:00 04/10/24 16:38 Buspirone Hcl 5 Mg Tablet PO 5 mg BID PILO Administration Ezetimibe 10 mg 04/03/24 09:00 04/10/24 09:50 Ezetimibe 10 Mg Tablet PO 10 mg DAILY PILO Administration Empagliflozin 10 mg 04/03/24 09:00 04/10/24 09:50 Empagliflozin 10 Mg Tablet PO 10 mg DAILY PILO Administration Escitalopram Oxalate 20 mg 04/03/24 09:00 04/10/24 09:51 Escitalopram Oxalate 10 Mg Tablet PO 20 mg DAILY PILO Administration Furosemide 40 mg 04/10/24 09:00 04/10/24 16:40 Furosemide Inj 40 Mg/4 Ml Vial IV PUSH 40 mg BID PILO Administration Gabapentin 300 mg 04/02/24 13:00 04/10/24 16:38 Gabapentin 300 Mg Capsule PO 300 mg TID PILO Administration Insulin Aspart 4 - 8 units 04/06/24 17:00 04/10/24 12:05 Insulin Aspart (*Bkc) 100 Units/Ml SUB-Q Not Given TIDWM [facility] Protocol Insulin Aspart 2 - 4 units 04/06/24 21:00 04/09/24 22:51 Insulin Aspart (*Bkc) 100 Units/Ml SUB-Q Not Given HS [facility] Protocol Isosorbide Mononitrate 120 mg 04/03/24 09:00 04/10/24 09:50 Isosorbide Mononitrate 60 Mg Tab.Er.24h PO 120 mg DAILY PILO Administration Levothyroxine Sodium 100 mcg 04/03/24 06:30 04/10/24 06:09 Levothyroxine Sodium 100 Mcg Tablet PO 100 mcg DAILY@0630 [facility] Administration Melatonin 5 mg 04/02/24 00:22 Melatonin 5 Mg Tablet PO HS PRN Insomnia Metoprolol Tartrate 12.5 mg 04/02/24 00:30 04/10/24 09:50 Metoprolol Tartrate 12.5 Mg Tablet PO 12.5 mg Q12HR PILO Administration Prochlorperazine Edisylate 10 mg 04/02/24 00:22 Prochlorperazine Edisylate 10 Mg/2 Ml Vial IV PUSH Q6H PRN Nausea And Vomiting Sacubitril/Valsartan 1 tab 04/11/24 09:00 Sacubitril/Valsartan 97-103 Mg Tablet PO Q12HR [facility] Radiology Results: ITS Impressions Chest CTA 04/01/24 19:46 IMPRESSION: No CT evidence of acute pulmonary embolus. No acute process detected in the chest. Venous Doppler Study 04/01/24 19:59 IMPRESSION: Patent bilateral lower extremity veins. No evidence of deep venous thrombosis. Renal Ultrasound 04/05/24 14:58 IMPRESSION: 1. Normal right kidney. 2. Severe atrophy of left kidney. Chest X-Ray 04/10/24 08:48 IMPRESSION: 1. Likely congestive heart failure with cardiomegaly and mild pulmonary edema. 2. Atelectasis versus less likely pneumonia in the left lower lung zone. Labs Labs: Laboratory Tests 04/10/24 06:06 04/10/24 06:06 Calcium 9.4 Total Bilirubin 0.5 AST 18 ALT 14 Alkaline Phosphatase 90 Total Protein 6.0 L Albumin 3.5 Quality resuem diuretics
[2024-04-10] MEDS: allopurinoL 100 MG TABLET 200 MG PO (17:43)
[2024-04-10 17:56] LABS: Glucose Point of Care 147 mg/dl (65-105)
[2024-04-10] MEDS: INSULIN ASPART (*BKC) 100 UNITS/ML SUB-Q (20:42)
[2024-04-11] VITALS (15 sets, daily range): BP systolic 109–133; BP diastolic 31–76; PULSE 68–89; RESP 18; TEMP 36.6–36.7; O2SAT 90–99
[2024-04-11 00:11] LABS: Glucose Point of Care 217 mg/dl (65-105)
[2024-04-11 05:52] LABS: Basophils Absolute Auto 0.1 K/mm3 (0.0-0.1); Basophils Percent Auto 0.6 % (0.2-1.2); Eosinophils Absolute Auto 0.2 K/mm3 (0-0.3); Eosinophils Percent Auto 1.7 % (0-4.4); Hematocrit 29.7 % (37.0-47.0); Hemoglobin 8.7 g/dL (12.0-15.0); Immature Granulocyte Absolute 0.03 K/mm3 (0.00-0.031); Immature Granulocyte Percent A 0.3 % (0-0.5); Lymphocytes Absolute Auto 0.76 K/mm3 (0.9-3.2); Lymphocytes Percent Auto 7.9 % (18.3-44.2); Mean Corpuscular HGB Conc 29.3 g/dl (32-36); Mean Corpuscular Hemoglobin 30.3 pg (26-34); Mean Corpuscular Volume 103.5 fl (80-100); Monocytes Absolute Auto 0.6 K/mm3 (0.1-0.6); Monocytes Percent Auto 6.6 % (2.6-8.5); Neutrophils Absolute Auto 7.9 K/mm3 (1.3-6.7); Neutrophils Percent Auto 82.9 % (45.5-73.1); Platelet Count Result 193 k/mm3 (150-375); Red Blood Count 2.87 M/mm3 (4.2-5.4); Red Cell Distribution Width 14.3 % (11.5-14.5); White Blood Count 9.6 K/mm3 (4.5-10.0)
[2024-04-11] MEDS: LEVOTHYROXINE SODIUM 100 MCG TABLET PO (05:54)
[2024-04-11 06:09] LABS: Alanine Aminotransferase 15 U/L (6-35); Albumin Level 3.4 g/dL (3.5-5.1); Alkaline Phosphatase 89 U/L (38-126); Anion Gap 9 mmol/L (4-12); Aspartate Amino Transferase 16 U/L (14-36); Bilirubin,Total 0.5 mg/dL (0.2-1.3); Blood Urea Nitrogen 48 mg/dL (7-17); Calcium 9.3 mg/dL (8.4-10.2); Carbon Dioxide 28 mmol/L (22-30); Chloride 104 mmol/L (98-107); Estimated CRCL calculation 39 ml/min; Estimated Glomerular Filt Rate 30; Glucose 131 mg/dL (65-110); Potassium 5.1 mmol/L (3.4-5.0); Sodium 141 mmol/L (137-145)
[2024-04-11 06:18] LABS: Anisocytosis 1+; Hypochromasia 1+; Platelet Estimate Adequate (Adequate); Schistocytes None Seen
--- NOTE | 2024-04-11 07:13 | P.PNIM_ITS ---
Progress Note: A&P Assessment and Plan (1) Acute hypoxic respiratory failure: Code(s): J96.01 - Acute respiratory failure with hypoxia Status: Acute Assessment and Plan: * CTA 04/01 was negative for PE * CXR 04/06 showing congestive heart failure with cardiomegaly, pulmonary vascular congestion and mild pulmonary edema in the lower lung zones * Hx of DAMI wears Cpap at bedtime however her unit is not working at home. Considering her hypercapnia she would benefit from Bipap in AVAPS instead of Cpap. * TTE shown LVEF of 40-45% * ABG on admission showing pH 7.177, pCO2 78.2, pO2 76.5, Bicarb 28.3. Patient was placed on continuous bipap with follow up ABG showing 7.254, PCO2 61.8, pO2 69.9, bicarb 26.2 ABG on am labs show pH 7.323, pCO2 59.8, pO2 43.8, HCO3 30.3. Oxyhemoglobin 76.3. Significant decrease in oxyhemoglobin likely due to mask coming off and improper fit. * Pulmonology consulted Patient weaned to 2.5L NC today, will continue to wean as tolerated. Chest XR this am shows central congestive change and questionable focal developing hazy right basilar airspace disease. Patient does not have signs of infection given that her WBC is WNL and she remains afebrile. Will hold on antibiotics at this time. She had an apnealink overnight however the mask fell off and she remained on nasal cannula most of the night as no one returned to place the mask. Repeat the ApneaLink study tonight using the home ventilator and supplemental oxygen at 4 liters/minute following a mask fitting. (2) Atrial fibrillation with RVR: Code(s): I48.91 - Unspecified atrial fibrillation Status: Acute Assessment and Plan: * New onset afib * ChadsVasc score 6 (age 64=1, congestive heart failure=1, hypertension=1, DM=1, CAD=1, female sex=1). She was started on heparin drip. Stop heparin drip and start Eliquis 5 mg p.o. b.i.d. * continue eliquis and metoprolol * Echo shown LVEF 40-45% * Cardiology following Plan for AIDEN guided cardioversion as outpatient after 4 weeks of uninterrupted anticoagulation with Eliquis Scheduled 05/10 (3) CHF (congestive heart failure): Code(s): I50.9 - Heart failure, unspecified Status: Acute Assessment and Plan: * Echo shown LVEF of 40-45% per Cardiology notation * Continue Jardiance and Metoprolol * Entresto and Lasix resumed as WILLIAN has improved * CXR showing congestive heart failure with cardiomegaly, pulmonary vascular congestion and mild pulmonary edema in the lower lung zones (4) WILLIAN (acute kidney injury): Code(s): N17.9 - Acute kidney failure, unspecified Status: Acute Assessment and Plan: * BUN/Cr 48/1.68 on am labs * Renal US: Normal right kidney, severe atrophy of left kidney. * Lasix and Entresto resumed * Avoid nephrotoxic medication * Nephrology following * Continue to trend (5) Hypothyroidism: Code(s): E03.9 - Hypothyroidism, unspecified Status: Acute Assessment and Plan: * Continue synthroid (6) Diabetes: Code(s): E11.9 - Type 2 diabetes mellitus without complications Status: Chronic Assessment and Plan: * Blood sugars ranging 102-153 * Will obtain Hgb A1C * Accu checks AC/HS * High dose SSI ordered * hypoglycemic protocol in place * Diabetic diet ordered Time Spent With Patient Time with patient: 25 - 35 minutes Subjective Date/time seen: 04/11/24 07:13 Interval history: 64yo F with a past medical history significant for CAD s/p PCI, CHFrEF, dyslipidemia, obesity, DAMI, Hypertension, and DM2 who presents to the hospital for shortness of breath and palpitations. Patient is pleasant sitting up comfortably in bed. She has no new complaints denying chest pain, shortness of breath, palpitations, nausea/vomiting and abdominal pain. She had an apnealink overnight however she states that around 1:30 the mask fell off, she notes that she called for it to be placed again however she remained on nasal cannula most of the night as no one returned to place the mask. She is to undergo an apnea link again tonight to reassess home settings. Review of Systems Review of Systems: All systems reviewed & are unremarkable except as noted in HPI and below Exam Narrative: AF HR 89 RR 18 SPO2 90 2.5L NC BP 133/76 General: female in no acute respiratory distress who is nontoxic appearing, sitting up in her bed HEENT: Normocephalic. Atraumatic. Extraocular movement intact. Sclera clear and anicteric. Chest: Lungs are clear to auscultation bilaterally. No wheezes or crackles. CV: Heart was regular rate and rhythm. S1-S2. No murmurs, gallops, or rubs. Abd: Abdomen was soft. Nontender. Nondistended. Positive bowel sounds. Objective Data Vital Signs Vital Signs: Vital Signs - 24 hr 04/10/24 08:04 04/10/24 09:50 04/10/24 09:53 Temperature Pulse Rate 83 83 Respiratory Rate 20 Blood Pressure Pulse Oximetry 93 Oxygen Delivery Nasal Cannula Oxygen Flow Rate 3.5 04/10/24 09:53 04/10/24 10:45 04/10/24 15:00 Temperature Pulse Rate 83 Respiratory Rate Blood Pressure Pulse Oximetry Oxygen Delivery Nasal Cannula Nasal Cannula Oxygen Flow Rate 2 4 04/10/24 16:00 04/10/24 16:00 04/10/24 20:00 Temperature 97.9 F Pulse Rate 79 86 85 Respiratory Rate 18 Blood Pressure 174/96 H Pulse Oximetry 99 Oxygen Delivery Oxygen Flow Rate 04/10/24 20:38 04/10/24 20:42 04/10/24 22:00 Temperature 97.0 F L Pulse Rate 85 85 Respiratory Rate 18 Blood Pressure 158/62 H Pulse Oximetry 100 100 Oxygen Delivery Nasal Cannula Oxygen Flow Rate 4 04/10/24 22:20 04/10/24 22:20 04/11/24 00:00 Temperature Pulse Rate 85 81 Respiratory Rate Blood Pressure Pulse Oximetry 99 99 Oxygen Delivery CPAP CPAP Oxygen Flow Rate 4 04/11/24 04:00 04/11/24 05:57 Temperature 98.1 F Pulse Rate 83 84 Respiratory Rate 18 Blood Pressure 133/76 Pulse Oximetry 99 Oxygen Delivery Oxygen Flow Rate Intake/Output Intake/Output: Intake & Output 04/08/24 04/09/24 04/10/24 04/11/24 23:59 23:59 23:59 23:59 Intake Total 5667 686 2348 Output Total 200 0 0 Balance 5976 273 7314 Meds/Results Medications: Active Medications Generic Name Dose Route Start Last Admin Trade Name Freq PRN Reason Stop Dose Admin Acetaminophen 650 mg 04/03/24 10:34 04/06/24 09:54 Acetaminophen 325 Mg Tablet PO 650 mg Q4H PRN Administration Headache Hydrocodone Bitart/Acetaminophen 1 tab 04/03/24 02:27 04/10/24 06:13 Hydrocodone/Acetaminophen (*Crx) 7.5-325 Mg Tablet PO 1 tab Q6H PRN Administration Pain Rated 7-10 Albuterol/Ipratropium 3 ml 04/02/24 00:22 Ipratropium 0.5 Mg/Albuterol Sulfate 2.5 Mg Ampul.Neb 3 Ml INHALATION Q4HRT PRN shortness of breath/Wheezing Allopurinol 300 mg 04/03/24 09:00 04/10/24 09:49 Allopurinol 100 Mg Tablet PO 300 mg QAM PILO Administration Allopurinol 200 mg 04/03/24 18:00 04/10/24 17:43 Allopurinol 100 Mg Tablet PO 200 mg QPM PILO Administration Apixaban 5 mg 04/03/24 21:00 04/10/24 20:42 Apixaban 5 Mg Tablet PO 5 mg Q12HR PILO Administration Atorvastatin Calcium 80 mg 04/03/24 09:00 04/10/24 09:49 Atorvastatin 40 Mg Tablet PO 80 mg DAILY PILO Administration Buspirone HCl 5 mg 04/02/24 17:00 04/10/24 16:38 Buspirone Hcl 5 Mg Tablet PO 5 mg BID PILO Administration Ezetimibe 10 mg 04/03/24 09:00 04/10/24 09:50 Ezetimibe 10 Mg Tablet PO 10 mg DAILY PILO Administration Empagliflozin 10 mg 04/03/24 09:00 04/10/24 09:50 Empagliflozin 10 Mg Tablet PO 10 mg DAILY PILO Administration Escitalopram Oxalate 20 mg 04/03/24 09:00 04/10/24 09:51 Escitalopram Oxalate 10 Mg Tablet PO 20 mg DAILY PILO Administration Furosemide 40 mg 04/10/24 09:00 04/10/24 16:40 Furosemide Inj 40 Mg/4 Ml Vial IV PUSH 40 mg BID PILO Administration Gabapentin 300 mg 04/02/24 13:00 04/10/24 16:38 Gabapentin 300 Mg Capsule PO 300 mg TID PILO Administration Insulin Aspart 4 - 8 units 04/06/24 17:00 04/10/24 17:15 Insulin Aspart (*Bkc) 100 Units/Ml SUB-Q Not Given TIDWM [facility] Protocol Insulin Aspart 2 - 4 units 04/06/24 21:00 04/10/24 20:42 Insulin Aspart (*Bkc) 100 Units/Ml SUB-Q 2 units HS PILO Administration Protocol Isosorbide Mononitrate 120 mg 04/03/24 09:00 04/10/24 09:50 Isosorbide Mononitrate 60 Mg Tab.Er.24h PO 120 mg DAILY PILO Administration Levothyroxine Sodium 100 mcg 04/03/24 06:30 04/11/24 05:54 Levothyroxine Sodium 100 Mcg Tablet PO 100 mcg DAILY@0630 PILO Administration Melatonin 5 mg 04/02/24 00:22 Melatonin 5 Mg Tablet PO HS PRN Insomnia Metoprolol Tartrate 12.5 mg 04/02/24 00:30 04/10/24 20:42 Metoprolol Tartrate 12.5 Mg Tablet PO 12.5 mg Q12HR PILO Administration Prochlorperazine Edisylate 10 mg 04/02/24 00:22 Prochlorperazine Edisylate 10 Mg/2 Ml Vial IV PUSH Q6H PRN Nausea And Vomiting Sacubitril/Valsartan 1 tab 04/11/24 09:00 Sacubitril/Valsartan 97-103 Mg Tablet PO Q12HR [facility] Radiology Results: ITS Impressions Chest CTA 04/01/24 19:46 IMPRESSION: No CT evidence of acute pulmonary embolus. No acute process detected in the chest. Venous Doppler Study 04/01/24 19:59 IMPRESSION: Patent bilateral lower extremity veins. No evidence of deep venous thrombosis. Renal Ultrasound 04/05/24 14:58 IMPRESSION: 1. Normal right kidney. 2. Severe atrophy of left kidney. Chest X-Ray 04/11/24 06:14 Impression: Central congestive change and questionable focal developing hazy right basilar airspace disease. Stable cardiomegaly. Labs Labs: Laboratory Results - last 24 hr 04/10/24 04/10/24 04/10/24 06:06 07:45 11:59 WBC 8.7 RBC 2.83 L Hgb 8.6 L Hct 28.5 L MCV 100.7 H MCH 30.4 MCHC 30.2 L RDW 14.5 Plt Count 219 MPV 10.1 Immature Gran % (Auto) 0.3 Neut % (Auto) 78.9 H Lymph % (Auto) 10.6 L [place] % (Auto) 7.1 Eos % (Auto) 2.6 Baso % (Auto) 0.5 Lymph # (Auto) 0.92 [place] # (Auto) 0.6 Eos # (Auto) 0.2 Baso # (Auto) 0.0 Abs Immat Gran (auto) 0.03 Absolute Neuts (auto) 6.9 H Absolute Nucleated RBC 0.000 Band Neutrophils % Nucleated RBC % 0.0 Platelet Estimate Hypochromasia Anisocytosis Schistocytes Sodium Potassium Chloride Carbon Dioxide Anion Gap BUN Creatinine Estim Creat Clear Calc Estimated GFR Glucose POC Capillary Glucose 113 H 151 H Calcium Total Bilirubin AST ALT Alkaline Phosphatase Total Protein Albumin 04/10/24 04/10/24 04/11/24 17:11 19:27 05:08 WBC 9.6 RBC 2.87 L Hgb 8.7 L Hct 29.7 L MCV 103.5 H MCH 30.3 MCHC 29.3 L RDW 14.3 Plt Count 193 MPV 10.0 Immature Gran % (Auto) 0.3 Neut % (Auto) 82.9 H Lymph % (Auto) 7.9 L [place] % (Auto) 6.6 Eos % (Auto) 1.7 Baso % (Auto) 0.6 Lymph # (Auto) 0.76 L [place] # (Auto) 0.6 Eos # (Auto) 0.2 Baso # (Auto) 0.1 Abs Immat Gran (auto) 0.03 Absolute Neuts (auto) 7.9 H Absolute Nucleated RBC 0.000 Band Neutrophils % Not Reportable Nucleated RBC % 0.0 Platelet Estimate Adequate Hypochromasia 1+ Anisocytosis 1+ Schistocytes None seen Sodium 141 Potassium 5.1 H Chloride 104 Carbon Dioxide 28 Anion Gap 9 BUN 48 H Creatinine 1.68 H Estim Creat Clear Calc 39 Estimated GFR 30 L Glucose 131 H POC Capillary Glucose 147 H 217 H Calcium 9.3 Total Bilirubin 0.5 AST 16 ALT 15 Alkaline Phosphatase 89 Total Protein 7.0 Albumin 3.4 L Quality VTE Prophylaxis VTE prophylaxis: pharmacologic ordered
[2024-04-11 08:05] LABS: Glucose Point of Care 125 mg/dl (65-105)
--- NOTE | 2024-04-11 09:08 | PM.PNPUL ---
Progress Note: A&P Assessment and Plan (1) Acute hypoxic respiratory failure: Code(s): J96.01 - Acute respiratory failure with hypoxia Status: Acute (2) Hypercapnic respiratory failure: Code(s): J96.92 - Respiratory failure, unspecified with hypercapnia Status: Acute Assessment and Plan: A 64-year-old female with morbid obesity and a history of sleep apnea, previously managed with CPAP therapy, presented with hypoxemia following a device malfunction approximately six weeks ago. She was diagnosed with atrial fibrillation with a rapid ventricular response and has been treated successfully, returning to normal sinus rhythm. Initial arterial blood gas analysis revealed respiratory acidosis, with a pH of approximately 7.26 and a pCO2 over 60 mmHg. The patient received BiPAP support followed by BiPAP AVAPS, leading to improvement in arterial blood gases, with recent pH levels above 7.3 and pCO2 below 60 mmHg. The patient was placed on a home ventilator unit and underwent an ApneaLink study last night. The ventilator settings include a tidal volume of 500 mL, pressure support range of 10-30 cm H2O, EPAP range of 4-18 cm H2O, and 4 L/min of oxygen bleed-in. The ApneaLink report indicated significant oxyhemoglobin desaturation, with saturation levels below 88% for more than 40% of sleep time. The saturation tracing showed a sudden drop, possibly due to the mask falling off. Upon physical examination, there has been no significant change; the patient presents with a few crackles at the lung bases but no wheezing is noted. An initial chest CT scan revealed prominent pulmonary arteries and cardiomegaly, which are indicative of potential pulmonary hypertension. However, the echocardiogram was of poor quality and unable to adequately assess right ventricular function. Today's chest X-ray again demonstrated signs of vascular congestion, cardiomegaly, and prominent pulmonary arteries. Additionally, there is a questionable infiltrate in the right lower lobe. The patient does not exhibit any symptoms that would suggest a lower respiratory tract infection. As previously mentioned, the ApneaLink monitor once more encountered issues, and the recorded severe oxyhemoglobin desaturation is likely attributable to limited use of the home ventilator. Upon further inquiry, the patient reported sleeping well while connected to the home ventilator during the first part of the night. Plan: The ApneaLink study will be repeated tonight, utilizing the home ventilator and administering supplemental oxygen at 4 liters per minute. We will continue to monitor the patient closely in collaboration with you. (3) CHF (congestive heart failure): Code(s): I50.9 - Heart failure, unspecified Status: Acute (4) Atrial fibrillation with RVR: Code(s): I48.91 - Unspecified atrial fibrillation Status: Acute (5) Acute on chronic systolic heart failure: Code(s): I50.23 - Acute on chronic systolic (congestive) heart failure Status: Acute Subjective Date/time seen: 04/11/24 09:08 Interval history: Patient has no new respiratory symptoms. She used home ventilator unit load supplemental oxygen last night but only short period of time. According to the respiratory therapy notes home unit found on the floor without by arteries. The patient stated that mask fell off after using the ventilator for a few hours. Patient also stated that she remained on just nasal cannula most of the night as the machine was not placed back on. Tracing shows severe oxygen hemoglobin desaturation again as before. Review of Systems Review of Systems: All systems reviewed & are unremarkable except as noted in HPI and below (HPI and below) Exam Narrative: GENERAL APPEARANCE: Well developed, well nourished, alert and cooperative, obese and appears to be in no acute distress while receiving a BiPAP support and supplemental oxygen SKIN: Inspection of the skin reveals no rashes, ulcerations or petechiae. HEENT: Sclerae anicteric and conjunctivae pink and moist. Extraocular movements were intact and pupils were equal, round, and reactive to light. The oral mucosa, hard and soft palate, tongue and posterior pharynx were normal. NECK: Supple. There was no thyroid enlargement, and no tenderness, or masses were felt. CHEST: Normal AP diameter and normal contour without any kyphoscoliosis. LUNGS: Auscultation of the lungs revealed normal breath sounds without any other adventitious sounds or rubs. CARDIAC: There was a regular rate and rhythm without any murmurs, gallops, rubs. ABDOMEN: Soft and nontender with normal bowel sounds. There was no organomegaly. LYMPH NODES: No lymphadenopathy was appreciated in the neck. EXTREMITIES: No cyanosis, clubbing or edema. NEUROLOGIC: Alert and oriented x 3. Normal affect. Objective Data Vital Signs Vital Signs: Vital Signs - 24 hr 04/10/24 09:50 04/10/24 09:53 04/10/24 09:53 Temperature Pulse Rate 83 83 Respiratory Rate 20 Blood Pressure Pulse Oximetry 93 Oxygen Delivery Nasal Cannula Oxygen Flow Rate 3.5 04/10/24 10:45 04/10/24 15:00 04/10/24 16:00 Temperature Pulse Rate 79 Respiratory Rate Blood Pressure Pulse Oximetry Oxygen Delivery Nasal Cannula Nasal Cannula Oxygen Flow Rate 2 4 04/10/24 16:00 04/10/24 20:00 04/10/24 20:38 Temperature 36.6 C Pulse Rate 86 85 Respiratory Rate 18 Blood Pressure 174/96 H Pulse Oximetry 99 100 Oxygen Delivery Nasal Cannula Oxygen Flow Rate 4 04/10/24 20:42 04/10/24 22:00 04/10/24 22:20 Temperature 36.1 C L Pulse Rate 85 85 85 Respiratory Rate 18 Blood Pressure 158/62 H Pulse Oximetry 100 99 Oxygen Delivery CPAP Oxygen Flow Rate 04/10/24 22:20 04/11/24 00:00 04/11/24 04:00 Temperature Pulse Rate 81 83 Respiratory Rate Blood Pressure Pulse Oximetry 99 Oxygen Delivery CPAP Oxygen Flow Rate 4 04/11/24 05:57 04/11/24 08:50 Temperature 36.7 C Pulse Rate 84 Respiratory Rate 18 Blood Pressure 133/76 Pulse Oximetry 99 90 Oxygen Delivery Nasal Cannula Oxygen Flow Rate 4 Intake/Output Intake/Output: Intake & Output 04/08/24 04/09/24 04/10/24 04/11/24 23:59 23:59 23:59 23:59 Intake Total 5886 504 1425 Output Total 200 0 0 Balance 5509 217 1220 Meds/Results Medications: Active Medications Generic Name Dose Route Start Last Admin Trade Name Freq PRN Reason Stop Dose Admin Acetaminophen 650 mg 04/03/24 10:34 04/06/24 09:54 Acetaminophen 325 Mg Tablet PO 650 mg Q4H PRN Administration Headache Hydrocodone Bitart/Acetaminophen 1 tab 04/03/24 02:27 04/10/24 06:13 Hydrocodone/Acetaminophen (*Crx) 7.5-325 Mg Tablet PO 1 tab Q6H PRN Administration Pain Rated 7-10 Albuterol/Ipratropium 3 ml 04/02/24 00:22 Ipratropium 0.5 Mg/Albuterol Sulfate 2.5 Mg Ampul.Neb 3 Ml INHALATION Q4HRT PRN shortness of breath/Wheezing Allopurinol 300 mg 04/03/24 09:00 04/10/24 09:49 Allopurinol 100 Mg Tablet PO 300 mg QAM PILO Administration Allopurinol 200 mg 04/03/24 18:00 04/10/24 17:43 Allopurinol 100 Mg Tablet PO 200 mg QPM PILO Administration Apixaban 5 mg 04/03/24 21:00 04/10/24 20:42 Apixaban 5 Mg Tablet PO 5 mg Q12HR PILO Administration Atorvastatin Calcium 80 mg 04/03/24 09:00 04/10/24 09:49 Atorvastatin 40 Mg Tablet PO 80 mg DAILY PILO Administration Buspirone HCl 5 mg 04/02/24 17:00 04/10/24 16:38 Buspirone Hcl 5 Mg Tablet PO 5 mg BID PILO Administration Ezetimibe 10 mg 04/03/24 09:00 04/10/24 09:50 Ezetimibe 10 Mg Tablet PO 10 mg DAILY PILO Administration Empagliflozin 10 mg 04/03/24 09:00 04/10/24 09:50 Empagliflozin 10 Mg Tablet PO 10 mg DAILY PILO Administration Escitalopram Oxalate 20 mg 04/03/24 09:00 04/10/24 09:51 Escitalopram Oxalate 10 Mg Tablet PO 20 mg DAILY PILO Administration Furosemide 40 mg 04/10/24 09:00 04/10/24 16:40 Furosemide Inj 40 Mg/4 Ml Vial IV PUSH 40 mg BID PILO Administration Gabapentin 300 mg 04/02/24 13:00 04/10/24 16:38 Gabapentin 300 Mg Capsule PO 300 mg TID PILO Administration Insulin Aspart 4 - 8 units 04/06/24 17:00 04/11/24 08:13 Insulin Aspart (*Bkc) 100 Units/Ml SUB-Q Not Given TIDWM [facility] Protocol Insulin Aspart 2 - 4 units 04/06/24 21:00 04/10/24 20:42 Insulin Aspart (*Bkc) 100 Units/Ml SUB-Q 2 units HS [facility] Administration Protocol Isosorbide Mononitrate 120 mg 04/03/24 09:00 04/10/24 09:50 Isosorbide Mononitrate 60 Mg Tab.Er.24h PO 120 mg DAILY PILO Administration Levothyroxine Sodium 100 mcg 04/03/24 06:30 04/11/24 05:54 Levothyroxine Sodium 100 Mcg Tablet PO 100 mcg DAILY@0630 [facility] Administration Melatonin 5 mg 04/02/24 00:22 Melatonin 5 Mg Tablet PO HS PRN Insomnia Metoprolol Tartrate 12.5 mg 04/02/24 00:30 04/10/24 20:42 Metoprolol Tartrate 12.5 Mg Tablet PO 12.5 mg Q12HR PILO Administration Prochlorperazine Edisylate 10 mg 04/02/24 00:22 Prochlorperazine Edisylate 10 Mg/2 Ml Vial IV PUSH Q6H PRN Nausea And Vomiting Sacubitril/Valsartan 1 tab 04/11/24 09:00 Sacubitril/Valsartan 97-103 Mg Tablet PO Q12HR [facility] Radiology Results: ITS Impressions Chest CTA 04/01/24 19:46 IMPRESSION: No CT evidence of acute pulmonary embolus. No acute process detected in the chest. Venous Doppler Study 04/01/24 19:59 IMPRESSION: Patent bilateral lower extremity veins. No evidence of deep venous thrombosis. Renal Ultrasound 04/05/24 14:58 IMPRESSION: 1. Normal right kidney. 2. Severe atrophy of left kidney. Chest X-Ray 04/11/24 06:14 Impression: Central congestive change and questionable focal developing hazy right basilar airspace disease. Stable cardiomegaly. Labs Labs: Laboratory Results - last 24 hr 04/10/24 04/10/24 04/10/24 11:59 17:11 19:27 WBC RBC Hgb Hct MCV MCH MCHC RDW Plt Count MPV Immature Gran % (Auto) Neut % (Auto) Lymph % (Auto) Graham % (Auto) Eos % (Auto) Baso % (Auto) Lymph # (Auto) Graham # (Auto) Eos # (Auto) Baso # (Auto) Abs Immat Gran (auto) Absolute Neuts (auto) Absolute Nucleated RBC Band Neutrophils % Nucleated RBC % Platelet Estimate Hypochromasia Anisocytosis Schistocytes Sodium Potassium Chloride Carbon Dioxide Anion Gap BUN Creatinine Estim Creat Clear Calc Estimated GFR Glucose POC Capillary Glucose 151 H 147 H 217 H Calcium Total Bilirubin AST ALT Alkaline Phosphatase Total Protein Albumin 04/11/24 04/11/24 05:08 08:02 WBC 9.6 RBC 2.87 L Hgb 8.7 L Hct 29.7 L MCV 103.5 H MCH 30.3 MCHC 29.3 L RDW 14.3 Plt Count 193 MPV 10.0 Immature Gran % (Auto) 0.3 Neut % (Auto) 82.9 H Lymph % (Auto) 7.9 L Graham % (Auto) 6.6 Eos % (Auto) 1.7 Baso % (Auto) 0.6 Lymph # (Auto) 0.76 L Graham # (Auto) 0.6 Eos # (Auto) 0.2 Baso # (Auto) 0.1 Abs Immat Gran (auto) 0.03 Absolute Neuts (auto) 7.9 H Absolute Nucleated RBC 0.000 Band Neutrophils % Not Reportable Nucleated RBC % 0.0 Platelet Estimate Adequate Hypochromasia 1+ Anisocytosis 1+ Schistocytes None seen Sodium 141 Potassium 5.1 H Chloride 104 Carbon Dioxide 28 Anion Gap 9 BUN 48 H Creatinine 1.68 H Estim Creat Clear Calc 39 Estimated GFR 30 L Glucose 131 H POC Capillary Glucose 125 H Calcium 9.3 Total Bilirubin 0.5 AST 16 ALT 15 Alkaline Phosphatase 89 Total Protein 7.0 Albumin 3.4 L
[2024-04-11] MEDS: FUROSEMIDE INJ 40 MG/4 ML VIAL IV PUSH ×2 (09:25→16:53)
[2024-04-11] MEDS: ATORVASTATIN 40 MG TABLET 80 MG PO (09:25)
[2024-04-11] MEDS: EZETIMIBE 10 MG TABLET PO (09:25)
[2024-04-11] MEDS: GABAPENTIN 300 MG CAPSULE PO ×3 (09:25→16:53)
[2024-04-11] MEDS: allopurinoL 100 MG TABLET 300 MG PO (09:25)
[2024-04-11] MEDS: ISOSORBIDE MONONITRATE 60 MG TAB.ER.24H 120 MG PO (09:25)
[2024-04-11] MEDS: METOPROLOL TARTRATE 12.5 MG TABLET PO ×2 (09:26→20:55)
[2024-04-11] MEDS: busPIRone HCL 5 MG TABLET PO ×2 (09:26→16:53)
[2024-04-11] MEDS: APIXABAN 5 MG TABLET PO ×2 (09:26→20:54)
[2024-04-11] MEDS: ESCITALOPRAM OXALATE 10 MG TABLET 20 MG PO (09:26)
[2024-04-11] MEDS: SACUBITRIL/VALSARTAN 97-103 MG TABLET 1 TAB PO ×2 (09:27→20:55)
[2024-04-11] MEDS: EMPAGLIFLOZIN 10 MG TABLET PO (09:27)
[2024-04-11 12:07] LABS: Glucose Point of Care 169 mg/dl (65-105)
--- NOTE | 2024-04-11 12:51 | PM.PNNEP ---
Subjective Date/time seen: 04/11/24 12:51 Interval history: Follow-up for acute kidney injury/acute renal failure on chronic kidney disease. Appears to be doing reasonably well at the time of my visit; breathing/respiratory status seems stable if not better currently; no other acute issues/events overnight or earlier this morning; no distress or other complaints voiced when seen. Objective Data Vital Signs Vital Signs: Vital Signs Temp Pulse Resp BP Pulse Ox O2 Del Method O2 Flow Rate 04/11/24 12:01 81 04/11/24 09:27 89 04/11/24 09:27 89 18 90 Nasal Cannula 2.5 04/11/24 09:26 89 04/11/24 08:50 90 Nasal Cannula 4 04/11/24 08:03 88 04/11/24 05:57 98.1 F 84 18 133/76 99 04/11/24 04:00 83 04/11/24 00:00 81 04/10/24 22:20 99 CPAP 4 04/10/24 22:20 85 99 CPAP 04/10/24 22:00 97.0 F L 85 18 158/62 H 100 04/10/24 20:42 85 04/10/24 20:38 100 Nasal Cannula 4 04/10/24 20:00 85 Intake/Output Intake/Output: Intake & Output 04/08/24 04/09/24 04/10/24 04/11/24 23:59 23:59 23:59 23:59 Intake Total 5146 190 8164 720 Output Total 200 0 0 Balance 6330 773 9386 720 Meds/Results Medications: Active Medications Generic Name Dose Route Start Last Admin Trade Name Freq PRN Reason Stop Dose Admin Acetaminophen 650 mg 04/03/24 10:34 04/06/24 09:54 Acetaminophen 325 Mg Tablet PO 650 mg Q4H PRN Administration Headache Hydrocodone Bitart/Acetaminophen 1 tab 04/03/24 02:27 04/10/24 06:13 Hydrocodone/Acetaminophen (*Crx) 7.5-325 Mg Tablet PO 1 tab Q6H PRN Administration Pain Rated 7-10 Albuterol/Ipratropium 3 ml 04/02/24 00:22 Ipratropium 0.5 Mg/Albuterol Sulfate 2.5 Mg Ampul.Neb 3 Ml INHALATION Q4HRT PRN shortness of breath/Wheezing Allopurinol 300 mg 04/03/24 09:00 04/11/24 09:25 Allopurinol 100 Mg Tablet PO 300 mg QAM PILO Administration Allopurinol 200 mg 04/03/24 18:00 04/11/24 17:02 Allopurinol 100 Mg Tablet PO 200 mg QPM PILO Administration Apixaban 5 mg 04/03/24 21:00 04/11/24 09:26 Apixaban 5 Mg Tablet PO 5 mg Q12HR PILO Administration Atorvastatin Calcium 80 mg 04/03/24 09:00 04/11/24 09:25 Atorvastatin 40 Mg Tablet PO 80 mg DAILY PILO Administration Buspirone HCl 5 mg 04/02/24 17:00 04/11/24 16:53 Buspirone Hcl 5 Mg Tablet PO 5 mg BID PILO Administration Ezetimibe 10 mg 04/03/24 09:00 04/11/24 09:25 Ezetimibe 10 Mg Tablet PO 10 mg DAILY PILO Administration Empagliflozin 10 mg 04/03/24 09:00 04/11/24 09:27 Empagliflozin 10 Mg Tablet PO 10 mg DAILY PILO Administration Escitalopram Oxalate 20 mg 04/03/24 09:00 04/11/24 09:26 Escitalopram Oxalate 10 Mg Tablet PO 20 mg DAILY PILO Administration Gabapentin 300 mg 04/02/24 13:00 04/11/24 16:53 Gabapentin 300 Mg Capsule PO 300 mg TID PILO Administration Insulin Aspart 4 - 8 units 04/06/24 17:00 04/11/24 17:01 Insulin Aspart (*Bkc) 100 Units/Ml SUB-Q Not Given TIDWM [facility] Protocol Insulin Aspart 2 - 4 units 04/06/24 21:00 04/10/24 20:42 Insulin Aspart (*Bkc) 100 Units/Ml SUB-Q 2 units HS PILO Administration Protocol Isosorbide Mononitrate 120 mg 04/03/24 09:00 04/11/24 09:25 Isosorbide Mononitrate 60 Mg Tab.Er.24h PO 120 mg DAILY PILO Administration Levothyroxine Sodium 100 mcg 04/03/24 06:30 04/11/24 05:54 Levothyroxine Sodium 100 Mcg Tablet PO 100 mcg DAILY@0630 PILO Administration Melatonin 5 mg 04/02/24 00:22 Melatonin 5 Mg Tablet PO HS PRN Insomnia Metoprolol Tartrate 12.5 mg 04/02/24 00:30 04/11/24 09:26 Metoprolol Tartrate 12.5 Mg Tablet PO 12.5 mg Q12HR PILO Administration Prochlorperazine Edisylate 10 mg 04/02/24 00:22 Prochlorperazine Edisylate 10 Mg/2 Ml Vial IV PUSH Q6H PRN Nausea And Vomiting Sacubitril/Valsartan 1 tab 04/11/24 09:00 04/11/24 09:27 Sacubitril/Valsartan 97-103 Mg Tablet PO 1 tab Q12HR PILO Administration Torsemide 10 mg 04/12/24 09:00 Torsemide 10 Mg Tablet PO QAM [facility] Radiology Results: ITS Impressions Chest CTA 04/01/24 19:46 IMPRESSION: No CT evidence of acute pulmonary embolus. No acute process detected in the chest. Venous Doppler Study 04/01/24 19:59 IMPRESSION: Patent bilateral lower extremity veins. No evidence of deep venous thrombosis. Renal Ultrasound 04/05/24 14:58 IMPRESSION: 1. Normal right kidney. 2. Severe atrophy of left kidney. Chest X-Ray 04/11/24 06:14 Impression: Central congestive change and questionable focal developing hazy right basilar airspace disease. Stable cardiomegaly. Labs Labs: Laboratory Tests 04/11/24 05:08 04/11/24 05:08 Calcium 9.3 Total Bilirubin 0.5 AST 16 ALT 15 Alkaline Phosphatase 89 Total Protein 7.0 Albumin 3.4 L
[2024-04-11 17:00] LABS: Glucose Point of Care 173 mg/dl (65-105)
[2024-04-11] MEDS: allopurinoL 100 MG TABLET 200 MG PO (17:02)
[2024-04-11 20:28] LABS: Glucose Point of Care 178 mg/dl (65-105)
[2024-04-12] VITALS (13 sets, daily range): BP systolic 121–146; BP diastolic 55–79; PULSE 63–93; RESP 18; TEMP 36.4–37.1; O2SAT 92–100
[2024-04-12] MEDS: LEVOTHYROXINE SODIUM 100 MCG TABLET PO (05:43)
[2024-04-12 06:59] LABS: Basophils Percent Auto 0.5 % (0.2-1.2); Eosinophils Absolute Auto 0.2 K/mm3 (0-0.3); Eosinophils Percent Auto 2.8 % (0-4.4); Hematocrit 27.7 % (37.0-47.0); Hemoglobin 8.4 g/dL (12.0-15.0); Immature Granulocyte Absolute 0.04 K/mm3 (0.00-0.031); Immature Granulocyte Percent A 0.5 % (0-0.5); Lymphocytes Absolute Auto 0.75 K/mm3 (0.9-3.2); Lymphocytes Percent Auto 9.4 % (18.3-44.2); Mean Corpuscular HGB Conc 30.3 g/dl (32-36); Mean Corpuscular Hemoglobin 30.7 pg (26-34); Mean Corpuscular Volume 101.1 fl (80-100); Mean Platelet Volume 9.5 fl (7.4-10.4); Monocytes Absolute Auto 0.7 K/mm3 (0.1-0.6); Monocytes Percent Auto 8.4 % (2.6-8.5); Neutrophils Absolute Auto 6.3 K/mm3 (1.3-6.7); Neutrophils Percent Auto 78.4 % (45.5-73.1); Platelet Count Result 170 k/mm3 (150-375); Red Blood Count 2.74 M/mm3 (4.2-5.4); Red Cell Distribution Width 14.5 % (11.5-14.5)
[2024-04-12 07:16] LABS: Alanine Aminotransferase 13 U/L (6-35); Albumin Level 3.4 g/dL (3.5-5.1); Alkaline Phosphatase 84 U/L (38-126); Anion Gap 7 mmol/L (4-12); Aspartate Amino Transferase 15 U/L (14-36); Bilirubin,Total 0.9 mg/dL (0.2-1.3); Blood Urea Nitrogen 47 mg/dL (7-17); Calcium 9.1 mg/dL (8.4-10.2); Carbon Dioxide 32 mmol/L (22-30); Chloride 103 mmol/L (98-107); Estimated CRCL calculation 35 ml/min; Estimated Glomerular Filt Rate 27; Glucose 126 mg/dL (65-110); Phosphorus 3.7 mg/dL (2.5-4.5); Potassium 4.8 mmol/L (3.4-5.0); Sodium 142 mmol/L (137-145)
[2024-04-12 08:12] LABS: Glucose Point of Care 107 mg/dl (65-105)
--- NOTE | 2024-04-12 08:47 | P.PNIM_ITS ---
Progress Note: A&P Assessment and Plan (1) Acute hypoxic respiratory failure: Code(s): J96.01 - Acute respiratory failure with hypoxia Status: Acute Assessment and Plan: * CTA 04/01 was negative for PE * CXR 04/06 showing congestive heart failure with cardiomegaly, pulmonary vascular congestion and mild pulmonary edema in the lower lung zones * Hx of DAMI wears Cpap at bedtime however her unit is not working at home. Considering her hypercapnia she would benefit from Bipap in AVAPS instead of Cpap. * TTE shown LVEF of 40-45% * ABG on admission showing pH 7.177, pCO2 78.2, pO2 76.5, Bicarb 28.3. Patient was placed on continuous bipap with follow up ABG showing 7.254, PCO2 61.8, pO2 69.9, bicarb 26.2 ABG on am labs show pH 7.323, pCO2 59.8, pO2 43.8, HCO3 30.3. Oxyhemoglobin 76.3. Significant decrease in oxyhemoglobin likely due to mask coming off and improper fit. * Pulmonology consulted Chest XR on 04/11 showed central congestive change and questionable focal developing hazy right basilar airspace disease. Patient does not have signs of infection given that her WBC is WNL and she remains afebrile. Will hold on antibiotics at this time. Patient weaned to 1L NC today with saturations 94%, will continue to wean as tolerated. She had an apnealink overnight which showed persistent hypoxemia despite being on home settings with a 4L bleed. Ventilator settings adjusted per pulmonology. (2) Atrial fibrillation with RVR: Code(s): I48.91 - Unspecified atrial fibrillation Status: Acute Assessment and Plan: * New onset afib * ChadsVasc score 6 (age 64=1, congestive heart failure=1, hypertension=1, DM=1, CAD=1, female sex=1). She was started on heparin drip. Stop heparin drip and start Eliquis 5 mg p.o. b.i.d. * continue eliquis and metoprolol * Echo shown LVEF 40-45% * Cardiology following Plan for AIDEN guided cardioversion as outpatient after 4 weeks of uninterrupted anticoagulation with Eliquis Scheduled 05/10 Resolved. (3) CHF (congestive heart failure): Code(s): I50.9 - Heart failure, unspecified Status: Acute Assessment and Plan: * Echo shown LVEF of 40-45% per Cardiology notation * Continue Jardiance and Metoprolol * Entresto resumed as WILLIAN has improved * Lasix transitioned to bumex per nephrology * CXR showing congestive heart failure with cardiomegaly, pulmonary vascular congestion and mild pulmonary edema in the lower lung zones (4) WILLIAN (acute kidney injury): Code(s): N17.9 - Acute kidney failure, unspecified Status: Acute Assessment and Plan: * BUN/Cr 47/1.87 on am labs * Renal US: Normal right kidney, severe atrophy of left kidney. * Entresto resumed * Lasix transitioned to torsemide * Avoid nephrotoxic medication * Nephrology following * Continue to trend (5) Hypothyroidism: Code(s): E03.9 - Hypothyroidism, unspecified Status: Acute Assessment and Plan: * Continue synthroid (6) Diabetes: Code(s): E11.9 - Type 2 diabetes mellitus without complications Status: Chronic Assessment and Plan: * Hgb A1C 7.2 * Accu checks AC/HS * High dose SSI ordered * hypoglycemic protocol in place * Diabetic diet ordered Time Spent With Patient Time with patient: 25 - 35 minutes Subjective Date/time seen: 04/12/24 08:47 Interval history: 64yo F with a past medical history significant for CAD s/p PCI, CHFrEF, dyslipidemia, obesity, DAMI, Hypertension, and DM2 who presents to the hospital for shortness of breath and palpitations. Patient is pleasant sitting on the side of her bed. She was weaned down to 1L NC with saturations 94% during assessment. She has no complaints at this time denying chest pain, shortness of breath, palpitations, nausea/vomiting and abdominal pain. She underwent an apnea link overnight which showed hypoxemia on home settings. Patient will require another apnealink tonight as pulmonology adjusts settings. Review of Systems Review of Systems: All systems reviewed & are unremarkable except as noted in HPI and below Exam Narrative: AF HR 74 RR 18 SPO2 94 1L NC (weaned during assessment) BP 146/55 General: female in no acute respiratory distress who is nontoxic appearing, sitting up in her bed HEENT: Normocephalic. Atraumatic. Extraocular movement intact. Sclera clear and anicteric. Chest: Lungs are clear to auscultation bilaterally. No wheezes or crackles. CV: Heart was regular rate and rhythm. S1-S2. No murmurs, gallops, or rubs. Abd: Abdomen was soft. Nontender. Nondistended. Positive bowel sounds. Objective Data Vital Signs Vital Signs: Vital Signs - 24 hr 04/11/24 08:50 04/11/24 09:26 04/11/24 09:27 Temperature Pulse Rate 89 89 Respiratory Rate 18 Blood Pressure Pulse Oximetry 90 90 Oxygen Delivery Nasal Cannula Nasal Cannula Oxygen Flow Rate 4 2.5 Fraction of Inspired Oxygen 04/11/24 09:27 04/11/24 12:01 04/11/24 14:00 Temperature 98 F Pulse Rate 89 81 87 Respiratory Rate 18 Blood Pressure 109/63 Pulse Oximetry 92 Oxygen Delivery Oxygen Flow Rate Fraction of Inspired Oxygen 04/11/24 16:04 04/11/24 20:00 04/11/24 20:48 Temperature Pulse Rate 78 78 Respiratory Rate Blood Pressure Pulse Oximetry 96 Oxygen Delivery Nasal Cannula Oxygen Flow Rate 2.5 Fraction of Inspired Oxygen 04/11/24 20:55 04/11/24 21:47 04/11/24 22:40 Temperature 97.8 F Pulse Rate 78 78 68 Respiratory Rate 18 Blood Pressure 121/31 L Pulse Oximetry 96 93 Oxygen Delivery CPAP Oxygen Flow Rate Fraction of Inspired Oxygen 04/11/24 22:40 04/12/24 00:00 04/12/24 04:00 Temperature Pulse Rate 72 63 Respiratory Rate Blood Pressure Pulse Oximetry 93 Oxygen Delivery CPAP Oxygen Flow Rate 4 Fraction of Inspired Oxygen 36 04/12/24 05:59 Temperature 97.6 F Pulse Rate 74 Respiratory Rate 18 Blood Pressure 146/55 H Pulse Oximetry 97 Oxygen Delivery Oxygen Flow Rate Fraction of Inspired Oxygen Intake/Output Intake/Output: Intake & Output 04/09/24 04/10/24 04/11/24 04/12/24 23:59 23:59 23:59 23:59 Intake Total 840 1098 0 Output Total 0 0 Balance 840 1098 0 Meds/Results Medications: Active Medications Generic Name Dose Route Start Last Admin Trade Name Freq PRN Reason Stop Dose Admin Acetaminophen 650 mg 04/03/24 10:34 04/06/24 09:54 Acetaminophen 325 Mg Tablet PO 650 mg Q4H PRN Administration Headache Hydrocodone Bitart/Acetaminophen 1 tab 04/03/24 02:27 03/05/25 06:13 Hydrocodone/Acetaminophen (*Crx) 7.5-325 Mg Tablet PO 1 tab Q6H PRN Administration Pain Rated 7-10 Albuterol/Ipratropium 3 ml 04/02/24 00:22 Ipratropium 0.5 Mg/Albuterol Sulfate 2.5 Mg Ampul.Neb 3 Ml INHALATION Q4HRT PRN shortness of breath/Wheezing Allopurinol 300 mg 04/03/24 09:00 04/11/24 09:25 Allopurinol 100 Mg Tablet PO 300 mg QAM PILO Administration Allopurinol 200 mg 04/03/24 18:00 04/11/24 17:02 Allopurinol 100 Mg Tablet PO 200 mg QPM PILO Administration Apixaban 5 mg 04/03/24 21:00 04/11/24 20:54 Apixaban 5 Mg Tablet PO 5 mg Q12HR PILO Administration Atorvastatin Calcium 80 mg 04/03/24 09:00 04/11/24 09:25 Atorvastatin 40 Mg Tablet PO 80 mg DAILY PILO Administration Buspirone HCl 5 mg 04/02/24 17:00 04/11/24 16:53 Buspirone Hcl 5 Mg Tablet PO 5 mg BID PILO Administration Ezetimibe 10 mg 04/03/24 09:00 04/11/24 09:25 Ezetimibe 10 Mg Tablet PO 10 mg DAILY PILO Administration Empagliflozin 10 mg 04/03/24 09:00 04/11/24 09:27 Empagliflozin 10 Mg Tablet PO 10 mg DAILY PILO Administration Escitalopram Oxalate 20 mg 04/03/24 09:00 04/11/24 09:26 Escitalopram Oxalate 10 Mg Tablet PO 20 mg DAILY [facility] Administration Gabapentin 300 mg 04/02/24 13:00 04/11/24 16:53 Gabapentin 300 Mg Capsule PO 300 mg TID PILO Administration Insulin Aspart 4 - 8 units 04/06/24 17:00 04/11/24 17:01 Insulin Aspart (*Bkc) 100 Units/Ml SUB-Q Not Given TIDWM [facility] Protocol Insulin Aspart 2 - 4 units 04/06/24 21:00 04/11/24 20:49 Insulin Aspart (*Bkc) 100 Units/Ml SUB-Q Not Given HS [facility] Protocol Isosorbide Mononitrate 120 mg 04/03/24 09:00 04/11/24 09:25 Isosorbide Mononitrate 60 Mg Tab.Er.24h PO 120 mg DAILY PILO Administration Levothyroxine Sodium 100 mcg 04/03/24 06:30 04/12/24 05:43 Levothyroxine Sodium 100 Mcg Tablet PO 100 mcg DAILY@0630 [facility] Administration Melatonin 5 mg 04/02/24 00:22 Melatonin 5 Mg Tablet PO HS PRN Insomnia Metoprolol Tartrate 12.5 mg 04/02/24 00:30 04/11/24 20:55 Metoprolol Tartrate 12.5 Mg Tablet PO 12.5 mg Q12HR PILO Administration Prochlorperazine Edisylate 10 mg 04/02/24 00:22 Prochlorperazine Edisylate 10 Mg/2 Ml Vial IV PUSH Q6H PRN Nausea And Vomiting Sacubitril/Valsartan 1 tab 04/11/24 09:00 04/11/24 20:55 Sacubitril/Valsartan 97-103 Mg Tablet PO 1 tab Q12HR PILO Administration Torsemide 10 mg 04/12/24 09:00 Torsemide 10 Mg Tablet PO QAM [facility] Radiology Results: ITS Impressions Chest CTA 04/01/24 19:46 IMPRESSION: No CT evidence of acute pulmonary embolus. No acute process detected in the chest. Venous Doppler Study 04/01/24 19:59 IMPRESSION: Patent bilateral lower extremity veins. No evidence of deep venous thrombosis. Renal Ultrasound 04/05/24 14:58 IMPRESSION: 1. Normal right kidney. 2. Severe atrophy of left kidney. Chest X-Ray 04/11/24 06:14 Impression: Central congestive change and questionable focal developing hazy right basilar airspace disease. Stable cardiomegaly. Labs Labs: Laboratory Results - last 24 hr 04/11/24 04/11/24 04/11/24 11:58 16:57 20:25 WBC RBC Hgb Hct MCV MCH MCHC RDW Plt Count MPV Immature Gran % (Auto) Neut % (Auto) Lymph % (Auto) [place] % (Auto) Eos % (Auto) Baso % (Auto) Lymph # (Auto) [place] # (Auto) Eos # (Auto) Baso # (Auto) Abs Immat Gran (auto) Absolute Neuts (auto) Absolute Nucleated RBC Nucleated RBC % Sodium Potassium Chloride Carbon Dioxide Anion Gap BUN Creatinine Estim Creat Clear Calc Estimated GFR Glucose POC Capillary Glucose 169 H 173 H 178 H Calcium Phosphorus Magnesium Total Bilirubin AST ALT Alkaline Phosphatase Total Protein Albumin 04/12/24 04/12/24 06:47 08:08 WBC 8.0 RBC 2.74 L Hgb 8.4 L Hct 27.7 L MCV 101.1 H MCH 30.7 MCHC 30.3 L RDW 14.5 Plt Count 170 MPV 9.5 Immature Gran % (Auto) 0.5 Neut % (Auto) 78.4 H Lymph % (Auto) 9.4 L [place] % (Auto) 8.4 Eos % (Auto) 2.8 Baso % (Auto) 0.5 Lymph # (Auto) 0.75 L [place] # (Auto) 0.7 H Eos # (Auto) 0.2 Baso # (Auto) 0.0 Abs Immat Gran (auto) 0.04 H Absolute Neuts (auto) 6.3 Absolute Nucleated RBC 0.000 Nucleated RBC % 0.0 Sodium 142 Potassium 4.8 Chloride 103 Carbon Dioxide 32 H Anion Gap 7 BUN 47 H Creatinine 1.87 H Estim Creat Clear Calc 35 Estimated GFR 27 L Glucose 126 H POC Capillary Glucose 107 H Calcium 9.1 Phosphorus 3.7 Magnesium 2.0 Total Bilirubin 0.9 AST 15 ALT 13 Alkaline Phosphatase 84 Total Protein 6.0 L Albumin 3.4 L Quality VTE Prophylaxis VTE prophylaxis: pharmacologic ordered
--- NOTE | 2024-04-12 09:37 | PM.PNPUL ---
Progress Note: A&P Assessment and Plan (1) Acute hypoxic respiratory failure: Code(s): J96.01 - Acute respiratory failure with hypoxia Status: Acute (2) Hypercapnic respiratory failure: Code(s): J96.92 - Respiratory failure, unspecified with hypercapnia Status: Acute Assessment and Plan: A 64-year-old female with morbid obesity and a history of sleep apnea, previously managed with CPAP therapy, presented with hypoxemia following a device malfunction approximately six weeks ago. She was diagnosed with atrial fibrillation with a rapid ventricular response and has been treated successfully, returning to normal sinus rhythm. Initial arterial blood gas analysis revealed respiratory acidosis, with a pH of approximately 7.26 and a pCO2 over 60 mmHg. The patient received BiPAP support followed by BiPAP AVAPS, leading to improvement in arterial blood gases, with recent pH levels above 7.3 and pCO2 below 60 mmHg. The patient was placed on a home ventilator unit and has undergone ApneaLink on 3 nights this week. She continued to have severe oxyhemoglobin desaturation which was initially attributed to poor mask fitting. The ventilator settings include a tidal volume of 500 mL, pressure support range of 10-30 cm H2O, EPAP range of 4-18 cm H2O, and 4 L/min of oxygen bleed-in. Last night despite better mask fitting she again had severe oxyhemoglobin desaturation. Upon questioning the patient stated that she sleeps well on the home unit. She has no new respiratory symptoms this a.m.. Upon physical examination, there has been no significant change; the patient presents with a few crackles at the lung bases but no wheezing is noted. An initial chest CT scan revealed prominent pulmonary arteries and cardiomegaly, which are indicative of potential pulmonary hypertension. However, the echocardiogram was of poor quality and unable to adequately assess right ventricular function. The most recent chest X-ray continues to show evidence of vascular congestion, cardiomegaly, and prominent pulmonary arteries. There is also a possible infiltrate observed in the right lower lobe. However, the patient does not display any symptoms indicative of a lower respiratory tract infection. The persistent nocturnal hypoxemia, despite the use of a home ventilator, may be attributed to pulmonary hypertension, residual pulmonary edema, or inadequate ventilatory support from the home unit. A review of the oximetry tracing revealed significant fluctuations in oxygen saturation, which could suggest frequent obstructive episodes, even with an EPAP range of up to 18 cm. Plan: The ventilator settings will be adjusted as follows: tidal volume set to 550 mL, EPAP pressure range adjusted to 4-22 cm H2O, respiratory rate set at 20 breaths per minute, and supplemental oxygen at 5 liters per minute. A new ApneaLink study will be conducted tonight. The patient has been advised to avoid taking opiate painkillers immediately before bedtime. (3) CHF (congestive heart failure): Code(s): I50.9 - Heart failure, unspecified Status: Acute (4) Atrial fibrillation with RVR: Code(s): I48.91 - Unspecified atrial fibrillation Status: Acute (5) Acute on chronic systolic heart failure: Code(s): I50.23 - Acute on chronic systolic (congestive) heart failure Status: Acute Subjective Date/time seen: 04/12/24 09:37 Interval history: Patient has no new respiratory symptoms. She slept well last night on home unit and supplemental oxygen 4 liters/minute. Fully awake alert this a.m. on just supplemental oxygen. No change in shortness of breath no fever cough or wheezing. No lower extremity edema. She again had significant oxyhemoglobin desaturation on ApneaLink. Review of Systems Review of Systems: All systems reviewed & are unremarkable except as noted in HPI and below Exam Narrative: GENERAL APPEARANCE: Well developed, well nourished, alert and cooperative, obese and appears to be in no acute distress while receiving a BiPAP support and supplemental oxygen SKIN: Inspection of the skin reveals no rashes, ulcerations or petechiae. HEENT: Sclerae anicteric and conjunctivae pink and moist. Extraocular movements were intact and pupils were equal, round, and reactive to light. The oral mucosa, hard and soft palate, tongue and posterior pharynx were normal. NECK: Supple. There was no thyroid enlargement, and no tenderness, or masses were felt. CHEST: Normal AP diameter and normal contour without any kyphoscoliosis. LUNGS: Auscultation of the lungs revealed normal breath sounds without any other adventitious sounds or rubs. CARDIAC: There was a regular rate and rhythm without any murmurs, gallops, rubs. ABDOMEN: Soft and nontender with normal bowel sounds. There was no organomegaly. LYMPH NODES: No lymphadenopathy was appreciated in the neck. EXTREMITIES: No cyanosis, clubbing or edema. NEUROLOGIC: Alert and oriented x 3. Normal affect. Objective Data Vital Signs Vital Signs: Vital Signs - 24 hr 04/11/24 12:01 04/11/24 14:00 04/11/24 16:04 Temperature 36.6 C Pulse Rate 81 87 78 Respiratory Rate 18 Blood Pressure 109/63 Pulse Oximetry 92 Oxygen Delivery Oxygen Flow Rate Fraction of Inspired Oxygen 04/11/24 20:00 04/11/24 20:48 04/11/24 20:55 Temperature Pulse Rate 78 78 Respiratory Rate Blood Pressure Pulse Oximetry 96 Oxygen Delivery Nasal Cannula Oxygen Flow Rate 2.5 Fraction of Inspired Oxygen 04/11/24 21:47 04/11/24 22:40 04/11/24 22:40 Temperature 36.6 C Pulse Rate 78 68 Respiratory Rate 18 Blood Pressure 121/31 L Pulse Oximetry 96 93 93 Oxygen Delivery CPAP CPAP Oxygen Flow Rate 4 Fraction of Inspired Oxygen 36 04/12/24 00:00 04/12/24 04:00 04/12/24 05:59 Temperature 36.4 C Pulse Rate 72 63 74 Respiratory Rate 18 Blood Pressure 146/55 H Pulse Oximetry 97 Oxygen Delivery Oxygen Flow Rate Fraction of Inspired Oxygen Intake/Output Intake/Output: Intake & Output 04/09/24 04/10/24 04/11/24 04/12/24 23:59 23:59 23:59 23:59 Intake Total 840 1098 2050 Output Total 0 0 Balance 840 1098 2050 Meds/Results Medications: Active Medications Generic Name Dose Route Start Last Admin Trade Name Freq PRN Reason Stop Dose Admin Acetaminophen 650 mg 04/03/24 10:34 04/06/24 09:54 Acetaminophen 325 Mg Tablet PO 650 mg Q4H PRN Administration Headache Hydrocodone Bitart/Acetaminophen 1 tab 04/03/24 02:27 04/10/24 06:13 Hydrocodone/Acetaminophen (*Crx) 7.5-325 Mg Tablet PO 1 tab Q6H PRN Administration Pain Rated 7-10 Albuterol/Ipratropium 3 ml 04/02/24 00:22 Ipratropium 0.5 Mg/Albuterol Sulfate 2.5 Mg Ampul.Neb 3 Ml INHALATION Q4HRT PRN shortness of breath/Wheezing Allopurinol 300 mg 04/03/24 09:00 04/11/24 09:25 Allopurinol 100 Mg Tablet PO 300 mg QAM PILO Administration Allopurinol 200 mg 04/03/24 18:00 04/11/24 17:02 Allopurinol 100 Mg Tablet PO 200 mg QPM PILO Administration Apixaban 5 mg 04/03/24 21:00 04/11/24 20:54 Apixaban 5 Mg Tablet PO 5 mg Q12HR PILO Administration Atorvastatin Calcium 80 mg 04/03/24 09:00 04/11/24 09:25 Atorvastatin 40 Mg Tablet PO 80 mg DAILY PILO Administration Buspirone HCl 5 mg 04/02/24 17:00 04/11/24 16:53 Buspirone Hcl 5 Mg Tablet PO 5 mg BID PILO Administration Ezetimibe 10 mg 04/03/24 09:00 04/11/24 09:25 Ezetimibe 10 Mg Tablet PO 10 mg DAILY PILO Administration Empagliflozin 10 mg 04/03/24 09:00 04/11/24 09:27 Empagliflozin 10 Mg Tablet PO 10 mg DAILY PILO Administration Escitalopram Oxalate 20 mg 04/03/24 09:00 04/11/24 09:26 Escitalopram Oxalate 10 Mg Tablet PO 20 mg DAILY [facility] Administration Gabapentin 300 mg 04/02/24 13:00 04/11/24 16:53 Gabapentin 300 Mg Capsule PO 300 mg TID [facility] Administration Insulin Aspart 4 - 8 units 04/06/24 17:00 04/11/24 17:01 Insulin Aspart (*Bkc) 100 Units/Ml SUB-Q Not Given TIDWM [facility] Protocol Insulin Aspart 2 - 4 units 04/06/24 21:00 04/11/24 20:49 Insulin Aspart (*Bkc) 100 Units/Ml SUB-Q Not Given HS [facility] Protocol Isosorbide Mononitrate 120 mg 04/03/24 09:00 04/11/24 09:25 Isosorbide Mononitrate 60 Mg Tab.Er.24h PO 120 mg DAILY [facility] Administration Levothyroxine Sodium 100 mcg 04/03/24 06:30 04/12/24 05:43 Levothyroxine Sodium 100 Mcg Tablet PO 100 mcg DAILY@0630 [facility] Administration Melatonin 5 mg 04/02/24 00:22 Melatonin 5 Mg Tablet PO HS PRN Insomnia Metoprolol Tartrate 12.5 mg 04/02/24 00:30 04/11/24 20:55 Metoprolol Tartrate 12.5 Mg Tablet PO 12.5 mg Q12HR [facility] Administration Prochlorperazine Edisylate 10 mg 04/02/24 00:22 Prochlorperazine Edisylate 10 Mg/2 Ml Vial IV PUSH Q6H PRN Nausea And Vomiting Sacubitril/Valsartan 1 tab 04/11/24 09:00 04/11/24 20:55 Sacubitril/Valsartan 97-103 Mg Tablet PO 1 tab Q12HR PILO Administration Torsemide 10 mg 04/12/24 09:00 Torsemide 10 Mg Tablet PO QAM [facility] Radiology Results: ITS Impressions Chest CTA 04/01/24 19:46 IMPRESSION: No CT evidence of acute pulmonary embolus. No acute process detected in the chest. Venous Doppler Study 04/01/24 19:59 IMPRESSION: Patent bilateral lower extremity veins. No evidence of deep venous thrombosis. Renal Ultrasound 04/05/24 14:58 IMPRESSION: 1. Normal right kidney. 2. Severe atrophy of left kidney. Chest X-Ray 04/11/24 06:14 Impression: Central congestive change and questionable focal developing hazy right basilar airspace disease. Stable cardiomegaly. Labs Labs: Laboratory Results - last 24 hr 04/11/24 04/11/24 04/11/24 11:58 16:57 20:25 WBC RBC Hgb Hct MCV MCH MCHC RDW Plt Count MPV Immature Gran % (Auto) Neut % (Auto) Lymph % (Auto) [place] % (Auto) Eos % (Auto) Baso % (Auto) Lymph # (Auto) [place] # (Auto) Eos # (Auto) Baso # (Auto) Abs Immat Gran (auto) Absolute Neuts (auto) Absolute Nucleated RBC Nucleated RBC % Sodium Potassium Chloride Carbon Dioxide Anion Gap BUN Creatinine Estim Creat Clear Calc Estimated GFR Glucose POC Capillary Glucose 169 H 173 H 178 H Calcium Phosphorus Magnesium Total Bilirubin AST ALT Alkaline Phosphatase Total Protein Albumin 04/12/24 04/12/24 06:47 08:08 WBC 8.0 RBC 2.74 L Hgb 8.4 L Hct 27.7 L MCV 101.1 H MCH 30.7 MCHC 30.3 L RDW 14.5 Plt Count 170 MPV 9.5 Immature Gran % (Auto) 0.5 Neut % (Auto) 78.4 H Lymph % (Auto) 9.4 L [place] % (Auto) 8.4 Eos % (Auto) 2.8 Baso % (Auto) 0.5 Lymph # (Auto) 0.75 L [place] # (Auto) 0.7 H Eos # (Auto) 0.2 Baso # (Auto) 0.0 Abs Immat Gran (auto) 0.04 H Absolute Neuts (auto) 6.3 Absolute Nucleated RBC 0.000 Nucleated RBC % 0.0 Sodium 142 Potassium 4.8 Chloride 103 Carbon Dioxide 32 H Anion Gap 7 BUN 47 H Creatinine 1.87 H Estim Creat Clear Calc 35 Estimated GFR 27 L Glucose 126 H POC Capillary Glucose 107 H Calcium 9.1 Phosphorus 3.7 Magnesium 2.0 Total Bilirubin 0.9 AST 15 ALT 13 Alkaline Phosphatase 84 Total Protein 6.0 L Albumin 3.4 L
[2024-04-12] MEDS: EMPAGLIFLOZIN 10 MG TABLET PO (10:15)
[2024-04-12] MEDS: allopurinoL 100 MG TABLET 300 MG PO (10:15)
--- NOTE | 2024-04-12 10:15 | P.PNNP_ITS ---
Subjective Date/time seen: 04/12/24 10:15 Objective Data Vital Signs Vital Signs: Vital Signs Temp Pulse Resp BP Pulse Ox O2 Del Method O2 Flow Rate 04/12/24 10:14 80 04/12/24 08:30 84 04/12/24 08:30 78 18 92 Nasal Cannula 2 04/12/24 05:59 97.6 F 74 18 146/55 H 97 04/12/24 04:00 63 04/12/24 00:00 72 04/11/24 22:40 93 CPAP 4 04/11/24 22:40 68 93 CPAP 04/11/24 21:47 97.8 F 78 18 121/31 L 96 04/11/24 20:55 78 04/11/24 20:48 96 Nasal Cannula 2.5 04/11/24 20:00 78 Intake/Output Intake/Output: Intake & Output 04/09/24 04/10/24 04/11/24 04/12/24 23:59 23:59 23:59 23:59 Intake Total 840 1098 2050 1390 Output Total 0 0 Balance 840 1098 2050 1390 Meds/Results Medications: Active Medications Generic Name Dose Route Start Last Admin Trade Name Freq PRN Reason Stop Dose Admin Acetaminophen 650 mg 04/03/24 10:34 04/06/24 09:54 Acetaminophen 325 Mg Tablet PO 650 mg Q4H PRN Administration Headache Hydrocodone Bitart/Acetaminophen 1 tab 04/03/24 02:27 04/10/24 06:13 Hydrocodone/Acetaminophen (*Crx) 7.5-325 Mg Tablet PO 1 tab Q6H PRN Administration Pain Rated 7-10 Albuterol/Ipratropium 3 ml 04/02/24 00:22 Ipratropium 0.5 Mg/Albuterol Sulfate 2.5 Mg Ampul.Neb 3 Ml INHALATION Q4HRT PRN shortness of breath/Wheezing Allopurinol 300 mg 04/03/24 09:00 04/12/24 10:15 Allopurinol 100 Mg Tablet PO 300 mg QAM PILO Administration Allopurinol 200 mg 04/03/24 18:00 04/12/24 17:23 Allopurinol 100 Mg Tablet PO 200 mg QPM PILO Administration Apixaban 5 mg 04/03/24 21:00 04/12/24 10:16 Apixaban 5 Mg Tablet PO 5 mg Q12HR [facility] Administration Atorvastatin Calcium 80 mg 04/03/24 09:00 04/12/24 10:17 Atorvastatin 40 Mg Tablet PO 80 mg DAILY [facility] Administration Buspirone HCl 5 mg 04/02/24 17:00 04/12/24 17:22 Buspirone Hcl 5 Mg Tablet PO 5 mg BID PILO Administration Ezetimibe 10 mg 04/03/24 09:00 04/12/24 10:16 Ezetimibe 10 Mg Tablet PO 10 mg DAILY [facility] Administration Empagliflozin 10 mg 04/03/24 09:00 04/12/24 10:15 Empagliflozin 10 Mg Tablet PO 10 mg DAILY [facility] Administration Escitalopram Oxalate 20 mg 04/03/24 09:00 04/12/24 10:17 Escitalopram Oxalate 10 Mg Tablet PO 20 mg DAILY [facility] Administration Gabapentin 300 mg 04/02/24 13:00 04/12/24 17:22 Gabapentin 300 Mg Capsule PO 300 mg TID PILO Administration Insulin Aspart 4 - 8 units 04/06/24 17:00 04/12/24 17:23 Insulin Aspart (*Bkc) 100 Units/Ml SUB-Q 4 units TIDWM [facility] Administration Protocol Insulin Aspart 2 - 4 units 04/06/24 21:00 04/11/24 20:49 Insulin Aspart (*Bkc) 100 Units/Ml SUB-Q Not Given HS [facility] Protocol Isosorbide Mononitrate 120 mg 04/03/24 09:00 04/12/24 10:17 Isosorbide Mononitrate 60 Mg Tab.Er.24h PO 120 mg DAILY [facility] Administration Levothyroxine Sodium 100 mcg 04/03/24 06:30 04/12/24 05:43 Levothyroxine Sodium 100 Mcg Tablet PO 100 mcg DAILY@0630 [facility] Administration Melatonin 5 mg 04/02/24 00:22 Melatonin 5 Mg Tablet PO HS PRN Insomnia Metoprolol Tartrate 12.5 mg 04/02/24 00:30 04/12/24 10:16 Metoprolol Tartrate 12.5 Mg Tablet PO 12.5 mg Q12HR [facility] Administration Prochlorperazine Edisylate 10 mg 04/02/24 00:22 Prochlorperazine Edisylate 10 Mg/2 Ml Vial IV PUSH Q6H PRN Nausea And Vomiting Sacubitril/Valsartan 1 tab 04/11/24 09:00 04/12/24 10:16 Sacubitril/Valsartan 97-103 Mg Tablet PO 1 tab Q12HR [facility] Administration Torsemide 10 mg 04/12/24 09:00 04/12/24 10:17 Torsemide 10 Mg Tablet PO 10 mg QAM [facility] Administration Radiology Results: ITS Impressions Chest CTA 04/01/24 19:46 IMPRESSION: No CT evidence of acute pulmonary embolus. No acute process detected in the chest. Venous Doppler Study 04/01/24 19:59 IMPRESSION: Patent bilateral lower extremity veins. No evidence of deep venous thrombosis. Renal Ultrasound 04/05/24 14:58 IMPRESSION: 1. Normal right kidney. 2. Severe atrophy of left kidney. Chest X-Ray 04/11/24 06:14 Impression: Central congestive change and questionable focal developing hazy right basilar airspace disease. Stable cardiomegaly. Labs Labs: Laboratory Tests 04/12/24 06:47 04/12/24 06:47 04/11/24 04/12/24 04/12/24 20:25 06:47 08:08 WBC 8.0 RBC 2.74 L Hgb 8.4 L Hct 27.7 L MCV 101.1 H MCH 30.7 MCHC 30.3 L RDW 14.5 Plt Count 170 MPV 9.5 Immature Gran % (Auto) 0.5 Neut % (Auto) 78.4 H Lymph % (Auto) 9.4 L [place] % (Auto) 8.4 Eos % (Auto) 2.8 Baso % (Auto) 0.5 Lymph # (Auto) 0.75 L [place] # (Auto) 0.7 H Eos # (Auto) 0.2 Baso # (Auto) 0.0 Abs Immat Gran (auto) 0.04 H Absolute Neuts (auto) 6.3 Absolute Nucleated RBC 0.000 Nucleated RBC % 0.0 Sodium 142 Potassium 4.8 Chloride 103 Carbon Dioxide 32 H Anion Gap 7 BUN 47 H Creatinine 1.87 H Estim Creat Clear Calc 35 Estimated GFR 27 L Glucose 126 H POC Capillary Glucose 178 H 107 H Calcium 9.1 Phosphorus 3.7 Magnesium 2.0 Total Bilirubin 0.9 AST 15 ALT 13 Alkaline Phosphatase 84 Total Protein 6.0 L Albumin 3.4 L 04/12/24 04/12/24 12:11 17:04 WBC RBC Hgb Hct MCV MCH MCHC RDW Plt Count MPV Immature Gran % (Auto) Neut % (Auto) Lymph % (Auto) [place] % (Auto) Eos % (Auto) Baso % (Auto) Lymph # (Auto) [place] # (Auto) Eos # (Auto) Baso # (Auto) Abs Immat Gran (auto) Absolute Neuts (auto) Absolute Nucleated RBC Nucleated RBC % Sodium Potassium Chloride Carbon Dioxide Anion Gap BUN Creatinine Estim Creat Clear Calc Estimated GFR Glucose POC Capillary Glucose 149 H 201 H Calcium Phosphorus Magnesium Total Bilirubin AST ALT Alkaline Phosphatase Total Protein Albumin
[2024-04-12] MEDS: APIXABAN 5 MG TABLET PO ×2 (10:16→20:53)
[2024-04-12] MEDS: SACUBITRIL/VALSARTAN 97-103 MG TABLET 1 TAB PO ×2 (10:16→20:53)
[2024-04-12] MEDS: METOPROLOL TARTRATE 12.5 MG TABLET PO ×2 (10:16→20:53)
[2024-04-12] MEDS: GABAPENTIN 300 MG CAPSULE PO ×3 (10:16→17:22)
[2024-04-12] MEDS: busPIRone HCL 5 MG TABLET PO ×2 (10:16→17:22)
[2024-04-12] MEDS: EZETIMIBE 10 MG TABLET PO (10:16)
[2024-04-12] MEDS: ISOSORBIDE MONONITRATE 60 MG TAB.ER.24H 120 MG PO (10:17)
[2024-04-12] MEDS: TORSEMIDE 10 MG TABLET PO (10:17)
[2024-04-12] MEDS: ATORVASTATIN 40 MG TABLET 80 MG PO (10:17)
[2024-04-12] MEDS: ESCITALOPRAM OXALATE 10 MG TABLET 20 MG PO (10:17)
[2024-04-12 12:15] LABS: Glucose Point of Care 149 mg/dl (65-105)
[2024-04-12 17:10] LABS: Glucose Point of Care 201 mg/dl (65-105)
[2024-04-12] MEDS: INSULIN ASPART (*BKC) 100 UNITS/ML SUB-Q (17:23)
[2024-04-12] MEDS: allopurinoL 100 MG TABLET 200 MG PO (17:23)
[2024-04-12 20:26] LABS: Glucose Point of Care 197 mg/dl (65-105)
[2024-04-13] VITALS (15 sets, daily range): BP systolic 111–138; BP diastolic 52–63; PULSE 72–93; RESP 14–20; TEMP 36.7–37.1; O2SAT 87–98
[2024-04-13] MEDS: LEVOTHYROXINE SODIUM 100 MCG TABLET PO (05:45)
[2024-04-13 07:23] LABS: Basophils Percent Auto 0.4 % (0.2-1.2); Eosinophils Absolute Auto 0.3 K/mm3 (0-0.3); Eosinophils Percent Auto 3.5 % (0-4.4); Hematocrit 28.5 % (37.0-47.0); Hemoglobin 8.6 g/dL (12.0-15.0); Immature Granulocyte Absolute 0.05 K/mm3 (0.00-0.031); Immature Granulocyte Percent A 0.7 % (0-0.5); Lymphocytes Absolute Auto 0.96 K/mm3 (0.9-3.2); Mean Corpuscular HGB Conc 30.2 g/dl (32-36); Mean Corpuscular Hemoglobin 30.1 pg (26-34); Mean Corpuscular Volume 99.7 fl (80-100); Mean Platelet Volume 9.5 fl (7.4-10.4); Monocytes Absolute Auto 0.6 K/mm3 (0.1-0.6); Monocytes Percent Auto 7.7 % (2.6-8.5); Neutrophils Absolute Auto 5.5 K/mm3 (1.3-6.7); Neutrophils Percent Auto 74.7 % (45.5-73.1); Platelet Count Result 183 k/mm3 (150-375); Red Blood Count 2.86 M/mm3 (4.2-5.4); Red Cell Distribution Width 14.5 % (11.5-14.5); White Blood Count 7.4 K/mm3 (4.5-10.0)
[2024-04-13 07:33] LABS: Alanine Aminotransferase 15 U/L (6-35); Albumin Level 3.3 g/dL (3.5-5.1); Alkaline Phosphatase 81 U/L (38-126); Anion Gap 5 mmol/L (4-12); Aspartate Amino Transferase 18 U/L (14-36); Bilirubin,Total 0.5 mg/dL (0.2-1.3); Blood Urea Nitrogen 48 mg/dL (7-17); Carbon Dioxide 32 mmol/L (22-30); Chloride 106 mmol/L (98-107); Estimated CRCL calculation 38 ml/min; Estimated Glomerular Filt Rate 30; Glucose 125 mg/dL (65-110); Magnesium 2.2 mg/dL (1.6-2.3); Phosphorus 3.3 mg/dL (2.5-4.5); Potassium 4.7 mmol/L (3.4-5.0); Sodium 143 mmol/L (137-145)
[2024-04-13 08:15] LABS: Glucose Point of Care 112 mg/dl (65-105)
[2024-04-13] MEDS: TORSEMIDE 10 MG TABLET PO (08:21)
[2024-04-13] MEDS: EZETIMIBE 10 MG TABLET PO (08:21)
[2024-04-13] MEDS: APIXABAN 5 MG TABLET PO ×2 (08:21→21:11)
[2024-04-13] MEDS: METOPROLOL TARTRATE 12.5 MG TABLET PO ×2 (08:21→21:11)
[2024-04-13] MEDS: GABAPENTIN 300 MG CAPSULE PO ×3 (08:21→17:07)
[2024-04-13] MEDS: SACUBITRIL/VALSARTAN 97-103 MG TABLET 1 TAB PO ×2 (08:21→21:11)
[2024-04-13] MEDS: ESCITALOPRAM OXALATE 10 MG TABLET 20 MG PO (08:22)
[2024-04-13] MEDS: ISOSORBIDE MONONITRATE 60 MG TAB.ER.24H 120 MG PO (08:22)
[2024-04-13] MEDS: busPIRone HCL 5 MG TABLET PO ×2 (08:22→17:07)
[2024-04-13] MEDS: allopurinoL 100 MG TABLET 300 MG PO (08:22)
[2024-04-13] MEDS: EMPAGLIFLOZIN 10 MG TABLET PO (08:22)
[2024-04-13] MEDS: ATORVASTATIN 40 MG TABLET 80 MG PO (08:22)
--- NOTE | 2024-04-13 09:27 | P.PNIM_ITS ---
Progress Note: A&P Assessment and Plan (1) Acute hypoxic respiratory failure: Code(s): J96.01 - Acute respiratory failure with hypoxia Status: Acute Assessment and Plan: * CTA 04/01 was negative for PE * CXR 04/06 showing congestive heart failure with cardiomegaly, pulmonary vascular congestion and mild pulmonary edema in the lower lung zones * Hx of DAMI wears Cpap at bedtime however her unit is not working at home. Considering her hypercapnia she would benefit from Bipap in AVAPS instead of Cpap. * TTE shown LVEF of 40-45% * ABG on admission showing pH 7.177, pCO2 78.2, pO2 76.5, Bicarb 28.3. Patient was placed on continuous bipap with follow up ABG showing 7.254, PCO2 61.8, pO2 69.9, bicarb 26.2 ABG on am labs show pH 7.323, pCO2 59.8, pO2 43.8, HCO3 30.3. Oxyhemoglobin 76.3. Significant decrease in oxyhemoglobin likely due to mask coming off and improper fit. * Pulmonology consulted Chest XR on 04/11 showed central congestive change and questionable focal developing hazy right basilar airspace disease. Patient does not have signs of infection given that her WBC is WNL and she remains afebrile. Will hold on antibiotics at this time. Patient weaned to RA today with saturations 94%, however she required 1L NC shortly after per nursing. Prior to discharge patient will likely require a home O2 evaluation. She states that she has had home oxygen in the past. Discussed patient with Dr. Romero and will obtain another apnea link tonight with a 6L bleed in. (2) Atrial fibrillation with RVR: Code(s): I48.91 - Unspecified atrial fibrillation Status: Acute Assessment and Plan: * New onset afib * ChadsVasc score 6 (age 64=1, congestive heart failure=1, hypertension=1, DM=1, CAD=1, female sex=1). She was started on heparin drip. Stop heparin drip and start Eliquis 5 mg p.o. b.i.d. * continue eliquis and metoprolol * Echo shown LVEF 40-45% * Cardiology following Plan for AIDEN guided cardioversion as outpatient after 4 weeks of uninterrupted anticoagulation with Eliquis Scheduled 4/4 Resolved. (3) CHF (congestive heart failure): Code(s): I50.9 - Heart failure, unspecified Status: Acute Assessment and Plan: * Chronic * Echo shown LVEF of 40-45% per Cardiology notation * Continue Jardiance and Metoprolol * Entresto resumed as WILLIAN has improved * Lasix transitioned to bumex per nephrology * CXR showing congestive heart failure with cardiomegaly, pulmonary vascular congestion and mild pulmonary edema in the lower lung zones (4) WILLIAN (acute kidney injury): Code(s): N17.9 - Acute kidney failure, unspecified Status: Acute Assessment and Plan: Etiology may include prior contrast on 04/01, diuretics, Entresto use, and borderline hypotension * BUN/Cr 48/1.72 on am labs, continue to improve * Renal US: Normal right kidney, severe atrophy of left kidney. * Entresto resumed * Lasix transitioned to torsemide * Avoid nephrotoxic medication * Nephrology following * Continue to trend (5) Hypothyroidism: Code(s): E03.9 - Hypothyroidism, unspecified Status: Acute Assessment and Plan: * Continue synthroid (6) Diabetes: Code(s): E11.9 - Type 2 diabetes mellitus without complications Status: Chronic Assessment and Plan: * Hgb A1C 7.2 * Accu checks AC/HS * High dose SSI ordered * hypoglycemic protocol in place * Diabetic diet ordered Time Spent With Patient Time with patient: 25 - 35 minutes Subjective Date/time seen: 04/13/24 09:27 Interval history: 64yo F with a past medical history significant for CAD s/p PCI, CHFrEF, dyslipidemia, obesity, DAMI, Hypertension, and DM2 who presents to the hospital for shortness of breath and palpitations. Patient is pleasant sitting up comfortably in her chair with family at bedside. She has no complaints denies chest pain, shortness a breath, palpitations, nausea/vomiting, and abdominal pain. Patient weaned to RA today with saturations 94%, however she required 1L NC shortly after per nursing. Prior to discharge patient will likely require a home O2 evaluation. She states that she has had home oxygen in the past. Discussed patient with Dr. Romero and will obtain another apnea link tonight with a 6L bleed in. Review of Systems Review of Systems: All systems reviewed & are unremarkable except as noted in HPI and below Exam Narrative: AF HR 83 RR 18 SPO2 96 1L NC BP 138/61 General: female in no acute respiratory distress who is nontoxic appearing, sitting up in her bed HEENT: Normocephalic. Atraumatic. Extraocular movement intact. Sclera clear and anicteric. Chest: Lungs are clear to auscultation bilaterally. No wheezes or crackles. CV: Heart was regular rate and rhythm. S1-S2. No murmurs, gallops, or rubs. Abd: Abdomen was soft. Nontender. Nondistended. Positive bowel sounds. Objective Data Vital Signs Vital Signs: Vital Signs - 24 hr 04/12/24 10:16 04/12/24 12:00 04/12/24 14:00 Temperature 98.7 F Pulse Rate 80 71 93 Respiratory Rate 18 Blood Pressure 145/79 H Pulse Oximetry 98 Oxygen Delivery Oxygen Flow Rate Fraction of Inspired Oxygen 04/12/24 16:00 04/12/24 20:00 04/12/24 20:50 Temperature Pulse Rate 68 80 Respiratory Rate Blood Pressure Pulse Oximetry 96 Oxygen Delivery Nasal Cannula Oxygen Flow Rate 1 Fraction of Inspired Oxygen 04/12/24 20:53 04/12/24 21:59 04/12/24 23:55 Temperature 98.1 F Pulse Rate 80 80 71 Respiratory Rate 18 Blood Pressure 121/58 L Pulse Oximetry 96 100 Oxygen Delivery CPAP Oxygen Flow Rate 5 Fraction of Inspired Oxygen 04/12/24 23:55 04/13/24 00:00 04/13/24 04:00 Temperature Pulse Rate 71 74 75 Respiratory Rate Blood Pressure Pulse Oximetry 100 Oxygen Delivery CPAP Oxygen Flow Rate Fraction of Inspired Oxygen 04/13/24 06:00 04/13/24 08:21 04/13/24 08:24 Temperature 98.2 F Pulse Rate 83 83 83 Respiratory Rate 18 18 Blood Pressure 138/61 Pulse Oximetry 94 96 Oxygen Delivery Nasal Cannula Oxygen Flow Rate 1 Fraction of Inspired Oxygen 36 Intake/Output Intake/Output: Intake & Output 04/10/24 04/11/24 04/12/24 04/13/24 23:59 23:59 23:59 23:59 Intake Total 1098 2050 1390 270 Output Total 0 Balance 1098 2050 1390 270 Meds/Results Medications: Active Medications Generic Name Dose Route Start Last Admin Trade Name Freq PRN Reason Stop Dose Admin Acetaminophen 650 mg 04/03/24 10:34 04/06/24 09:54 Acetaminophen 325 Mg Tablet PO 650 mg Q4H PRN Administration Headache Albuterol/Ipratropium 3 ml 04/02/24 00:22 Ipratropium 0.5 Mg/Albuterol Sulfate 2.5 Mg Ampul.Neb 3 Ml INHALATION Q4HRT PRN shortness of breath/Wheezing Allopurinol 300 mg 04/03/24 09:00 04/13/24 08:22 Allopurinol 100 Mg Tablet PO 300 mg QAM PILO Administration Allopurinol 200 mg 04/03/24 18:00 04/12/24 17:23 Allopurinol 100 Mg Tablet PO 200 mg QPM [facility] Administration Apixaban 5 mg 04/03/24 21:00 04/13/24 08:21 Apixaban 5 Mg Tablet PO 5 mg Q12HR [facility] Administration Atorvastatin Calcium 80 mg 04/03/24 09:00 04/13/24 08:22 Atorvastatin 40 Mg Tablet PO 80 mg DAILY [facility] Administration Buspirone HCl 5 mg 04/02/24 17:00 04/13/24 08:22 Buspirone Hcl 5 Mg Tablet PO 5 mg BID [facility] Administration Ezetimibe 10 mg 04/03/24 09:00 04/13/24 08:21 Ezetimibe 10 Mg Tablet PO 10 mg DAILY [facility] Administration Empagliflozin 10 mg 04/03/24 09:00 04/13/24 08:22 Empagliflozin 10 Mg Tablet PO 10 mg DAILY [facility] Administration Escitalopram Oxalate 20 mg 04/03/24 09:00 04/13/24 08:22 Escitalopram Oxalate 10 Mg Tablet PO 20 mg DAILY [facility] Administration Gabapentin 300 mg 04/02/24 13:00 04/13/24 08:21 Gabapentin 300 Mg Capsule PO 300 mg TID [facility] Administration Insulin Aspart 4 - 8 units 04/06/24 17:00 04/13/24 08:23 Insulin Aspart (*Bkc) 100 Units/Ml SUB-Q Not Given TIDWM [facility] Protocol Insulin Aspart 2 - 4 units 04/06/24 21:00 04/12/24 20:48 Insulin Aspart (*Bkc) 100 Units/Ml SUB-Q Not Given HS [facility] Protocol Isosorbide Mononitrate 120 mg 04/03/24 09:00 04/13/24 08:22 Isosorbide Mononitrate 60 Mg Tab.Er.24h PO 120 mg DAILY [facility] Administration Levothyroxine Sodium 100 mcg 04/03/24 06:30 04/13/24 05:45 Levothyroxine Sodium 100 Mcg Tablet PO 100 mcg DAILY@0630 [facility] Administration Melatonin 5 mg 04/02/24 00:22 Melatonin 5 Mg Tablet PO HS PRN Insomnia Metoprolol Tartrate 12.5 mg 04/02/24 00:30 04/13/24 08:21 Metoprolol Tartrate 12.5 Mg Tablet PO 12.5 mg Q12HR [facility] Administration Prochlorperazine Edisylate 10 mg 04/02/24 00:22 Prochlorperazine Edisylate 10 Mg/2 Ml Vial IV PUSH Q6H PRN Nausea And Vomiting Sacubitril/Valsartan 1 tab 04/11/24 09:00 04/13/24 08:21 Sacubitril/Valsartan 97-103 Mg Tablet PO 1 tab Q12HR [facility] Administration Torsemide 10 mg 04/12/24 09:00 04/13/24 08:21 Torsemide 10 Mg Tablet PO 10 mg QAM [facility] Administration Radiology Results: ITS Impressions Chest CTA 04/01/24 19:46 IMPRESSION: No CT evidence of acute pulmonary embolus. No acute process detected in the chest. Venous Doppler Study 04/01/24 19:59 IMPRESSION: Patent bilateral lower extremity veins. No evidence of deep venous thrombosis. Renal Ultrasound 04/05/24 14:58 IMPRESSION: 1. Normal right kidney. 2. Severe atrophy of left kidney. Chest X-Ray 04/11/24 06:14 Impression: Central congestive change and questionable focal developing hazy right basilar airspace disease. Stable cardiomegaly. Labs Labs: Laboratory Results - last 24 hr 04/12/24 04/12/24 04/12/24 12:11 17:04 20:11 WBC RBC Hgb Hct MCV MCH MCHC RDW Plt Count MPV Immature Gran % (Auto) Neut % (Auto) Lymph % (Auto) [place] % (Auto) Eos % (Auto) Baso % (Auto) Lymph # (Auto) [place] # (Auto) Eos # (Auto) Baso # (Auto) Abs Immat Gran (auto) Absolute Neuts (auto) Absolute Nucleated RBC Nucleated RBC % Sodium Potassium Chloride Carbon Dioxide Anion Gap BUN Creatinine Estim Creat Clear Calc Estimated GFR Glucose POC Capillary Glucose 149 H 201 H 197 H Calcium Phosphorus Magnesium Total Bilirubin AST ALT Alkaline Phosphatase Total Protein Albumin 04/13/24 04/13/24 07:11 08:09 WBC 7.4 RBC 2.86 L Hgb 8.6 L Hct 28.5 L MCV 99.7 MCH 30.1 MCHC 30.2 L RDW 14.5 Plt Count 183 MPV 9.5 Immature Gran % (Auto) 0.7 H Neut % (Auto) 74.7 H Lymph % (Auto) 13.0 L [place] % (Auto) 7.7 Eos % (Auto) 3.5 Baso % (Auto) 0.4 Lymph # (Auto) 0.96 [place] # (Auto) 0.6 Eos # (Auto) 0.3 Baso # (Auto) 0.0 Abs Immat Gran (auto) 0.05 H Absolute Neuts (auto) 5.5 Absolute Nucleated RBC 0.000 Nucleated RBC % 0.0 Sodium 143 Potassium 4.7 Chloride 106 Carbon Dioxide 32 H Anion Gap 5 BUN 48 H Creatinine 1.72 H Estim Creat Clear Calc 38 Estimated GFR 30 L Glucose 125 H POC Capillary Glucose 112 H Calcium 9.0 Phosphorus 3.3 Magnesium 2.2 Total Bilirubin 0.5 AST 18 ALT 15 Alkaline Phosphatase 81 Total Protein 7.0 Albumin 3.3 L Quality VTE Prophylaxis VTE prophylaxis: pharmacologic ordered
--- NOTE | 2024-04-13 09:54 | P.PNNP_ITS ---
Subjective Date/time seen: 04/13/24 09:54 Objective Data Vital Signs Vital Signs: Vital Signs Temp Pulse Resp BP Pulse Ox O2 Del Method O2 Flow Rate 04/13/24 08:24 83 18 96 Nasal Cannula 1 04/13/24 08:21 83 04/13/24 07:40 82 98 2 04/13/24 06:00 98.2 F 83 18 138/61 94 04/13/24 04:00 75 04/13/24 00:00 74 04/12/24 23:55 71 100 CPAP 04/12/24 23:55 71 100 CPAP 5 04/12/24 21:59 98.1 F 80 18 121/58 L 96 04/12/24 20:53 80 04/12/24 20:50 96 Nasal Cannula 1 04/12/24 20:00 80 04/12/24 16:00 68 Intake/Output Intake/Output: Intake & Output 04/10/24 04/11/24 04/12/24 04/13/24 23:59 23:59 23:59 23:59 Intake Total 1098 2050 1390 750 Output Total 0 Balance 1098 2050 1390 750 Meds/Results Medications: Active Medications Generic Name Dose Route Start Last Admin Trade Name Freq PRN Reason Stop Dose Admin Acetaminophen 650 mg 04/03/24 10:34 04/06/24 09:54 Acetaminophen 325 Mg Tablet PO 650 mg Q4H PRN Administration Headache Albuterol/Ipratropium 3 ml 04/02/24 00:22 Ipratropium 0.5 Mg/Albuterol Sulfate 2.5 Mg Ampul.Neb 3 Ml INHALATION Q4HRT PRN shortness of breath/Wheezing Allopurinol 300 mg 04/03/24 09:00 04/13/24 08:22 Allopurinol 100 Mg Tablet PO 300 mg QAM PILO Administration Allopurinol 200 mg 04/03/24 18:00 04/12/24 17:23 Allopurinol 100 Mg Tablet PO 200 mg QPM [facility] Administration Apixaban 5 mg 04/03/24 21:00 04/13/24 08:21 Apixaban 5 Mg Tablet PO 5 mg Q12HR [facility] Administration Atorvastatin Calcium 80 mg 04/03/24 09:00 04/13/24 08:22 Atorvastatin 40 Mg Tablet PO 80 mg DAILY [facility] Administration Buspirone HCl 5 mg 04/02/24 17:00 04/13/24 08:22 Buspirone Hcl 5 Mg Tablet PO 5 mg BID [facility] Administration Ezetimibe 10 mg 04/03/24 09:00 04/13/24 08:21 Ezetimibe 10 Mg Tablet PO 10 mg DAILY [facility] Administration Empagliflozin 10 mg 04/03/24 09:00 04/13/24 08:22 Empagliflozin 10 Mg Tablet PO 10 mg DAILY [facility] Administration Escitalopram Oxalate 20 mg 04/03/24 09:00 04/13/24 08:22 Escitalopram Oxalate 10 Mg Tablet PO 20 mg DAILY [facility] Administration Gabapentin 300 mg 04/02/24 13:00 04/13/24 12:47 Gabapentin 300 Mg Capsule PO 300 mg TID [facility] Administration Insulin Aspart 4 - 8 units 04/06/24 17:00 04/13/24 12:47 Insulin Aspart (*Bkc) 100 Units/Ml SUB-Q Not Given TIDWM [facility] Protocol Insulin Aspart 2 - 4 units 04/06/24 21:00 04/12/24 20:48 Insulin Aspart (*Bkc) 100 Units/Ml SUB-Q Not Given HS [facility] Protocol Isosorbide Mononitrate 120 mg 04/03/24 09:00 04/13/24 08:22 Isosorbide Mononitrate 60 Mg Tab.Er.24h PO 120 mg DAILY [facility] Administration Levothyroxine Sodium 100 mcg 04/03/24 06:30 04/13/24 05:45 Levothyroxine Sodium 100 Mcg Tablet PO 100 mcg DAILY@0630 [facility] Administration Melatonin 5 mg 04/02/24 00:22 Melatonin 5 Mg Tablet PO HS PRN Insomnia Metoprolol Tartrate 12.5 mg 04/02/24 00:30 04/13/24 08:21 Metoprolol Tartrate 12.5 Mg Tablet PO 12.5 mg Q12HR [facility] Administration Prochlorperazine Edisylate 10 mg 04/02/24 00:22 Prochlorperazine Edisylate 10 Mg/2 Ml Vial IV PUSH Q6H PRN Nausea And Vomiting Sacubitril/Valsartan 1 tab 04/11/24 09:00 04/13/24 08:21 Sacubitril/Valsartan 97-103 Mg Tablet PO 1 tab Q12HR [facility] Administration Torsemide 10 mg 04/12/24 09:00 04/13/24 08:21 Torsemide 10 Mg Tablet PO 10 mg QAM [facility] Administration Radiology Results: ITS Impressions Chest CTA 04/01/24 19:46 IMPRESSION: No CT evidence of acute pulmonary embolus. No acute process detected in the chest. Venous Doppler Study 04/01/24 19:59 IMPRESSION: Patent bilateral lower extremity veins. No evidence of deep venous thrombosis. Renal Ultrasound 04/05/24 14:58 IMPRESSION: 1. Normal right kidney. 2. Severe atrophy of left kidney. Chest X-Ray 04/11/24 06:14 Impression: Central congestive change and questionable focal developing hazy right basilar airspace disease. Stable cardiomegaly. Labs Labs: Laboratory Tests 04/13/24 07:11 04/13/24 07:11 Calcium 9.0 Phosphorus 3.3 Magnesium 2.2 Total Bilirubin 0.5 AST 18 ALT 15 Alkaline Phosphatase 81 Total Protein 7.0 Albumin 3.3 L
[2024-04-13 11:53] LABS: Glucose Point of Care 176 mg/dl (65-105)
[2024-04-13 16:06] LABS: Glucose Point of Care 151 mg/dl (65-105)
[2024-04-13] MEDS: allopurinoL 100 MG TABLET 200 MG PO (17:07)
[2024-04-13] MEDS: PROCHLORPERAZINE EDISYLATE 10 MG/2 ML VIAL IV PUSH (17:08)
[2024-04-13] MEDS: INSULIN ASPART (*BKC) 100 UNITS/ML SUB-Q (21:12)
[2024-04-13 22:35] LABS: Glucose Point of Care 207 mg/dl (65-105)
[2024-04-14] VITALS (14 sets, daily range): BP systolic 117–153; BP diastolic 41–87; PULSE 67–98; RESP 14–20; TEMP 36.4–36.8; O2SAT 91–98
[2024-04-14] MEDS: LEVOTHYROXINE SODIUM 100 MCG TABLET PO (05:36)
[2024-04-14 06:53] LABS: Basophils Percent Auto 0.4 % (0.2-1.2); Eosinophils Absolute Auto 0.3 K/mm3 (0-0.3); Eosinophils Percent Auto 4.8 % (0-4.4); Hematocrit 33.5 % (37.0-47.0); Hemoglobin 9.8 g/dL (12.0-15.0); Immature Granulocyte Absolute 0.03 K/mm3 (0.00-0.031); Immature Granulocyte Percent A 0.4 % (0-0.5); Lymphocytes Percent Auto 13.5 % (18.3-44.2); Mean Corpuscular HGB Conc 29.3 g/dl (32-36); Mean Corpuscular Hemoglobin 29.3 pg (26-34); Mean Corpuscular Volume 100.3 fl (80-100); Mean Platelet Volume 9.5 fl (7.4-10.4); Monocytes Absolute Auto 0.5 K/mm3 (0.1-0.6); Neutrophils Absolute Auto 4.9 K/mm3 (1.3-6.7); Neutrophils Percent Auto 73.9 % (45.5-73.1); Platelet Count Result 238 k/mm3 (150-375); Red Blood Count 3.34 M/mm3 (4.2-5.4); Red Cell Distribution Width 14.5 % (11.5-14.5); White Blood Count 6.7 K/mm3 (4.5-10.0)
[2024-04-14 07:06] LABS: Alanine Aminotransferase 17 U/L (6-35); Albumin Level 3.8 g/dL (3.5-5.1); Alkaline Phosphatase 92 U/L (38-126); Anion Gap 7 mmol/L (4-12); Aspartate Amino Transferase 20 U/L (14-36); Bilirubin,Total 0.6 mg/dL (0.2-1.3); Blood Urea Nitrogen 44 mg/dL (7-17); Calcium 9.8 mg/dL (8.4-10.2); Carbon Dioxide 33 mmol/L (22-30); Chloride 105 mmol/L (98-107); Estimated CRCL calculation 38 ml/min; Estimated Glomerular Filt Rate 30; Glucose 135 mg/dL (65-110); Magnesium 2.3 mg/dL (1.6-2.3); Phosphorus 3.9 mg/dL (2.5-4.5); Potassium 5.5 mmol/L (3.4-5.0); Sodium 145 mmol/L (137-145)
[2024-04-14 07:25] LABS: Hypochromasia 1+; Platelet Estimate Adequate (Adequate); Schistocytes None Seen; Stomatocytes 1+
--- NOTE | 2024-04-14 07:36 | P.PNIM_ITS ---
Progress Note: A&P Assessment and Plan (1) Acute hypoxic respiratory failure: Code(s): J96.01 - Acute respiratory failure with hypoxia Status: Acute Assessment and Plan: * CTA 04/01 was negative for PE * CXR 04/06 showing congestive heart failure with cardiomegaly, pulmonary vascular congestion and mild pulmonary edema in the lower lung zones * Hx of DAMI wears Cpap at bedtime however her unit is not working at home. Considering her hypercapnia she would benefit from Bipap in AVAPS instead of Cpap. * TTE shown LVEF of 40-45% * ABG on admission showing pH 7.177, pCO2 78.2, pO2 76.5, Bicarb 28.3. Patient was placed on continuous bipap with follow up ABG showing 7.254, PCO2 61.8, pO2 69.9, bicarb 26.2 ABG on am labs show pH 7.323, pCO2 59.8, pO2 43.8, HCO3 30.3. Oxyhemoglobin 76.3. Significant decrease in oxyhemoglobin likely due to mask coming off and improper fit. * Pulmonology consulted Chest XR on 04/11 showed central congestive change and questionable focal developing hazy right basilar airspace disease. Patient does not have signs of infection given that her WBC is WNL and she remains afebrile. Will hold on antibiotics at this time. Patient remains on 1L NC. Prior to discharge patient will likely require a home O2 evaluation. She states that she has had home oxygen in the past. Apnealink on 6 L bleed in performed overnight and patient continued to have saturations <88% for significant period of time. Discussed patient with Dr. Romero and will obtain another apnea link tonight with a 8L bleed in. (2) Atrial fibrillation with RVR: Code(s): I48.91 - Unspecified atrial fibrillation Status: Acute Assessment and Plan: * New onset afib * ChadsVasc score 6 (age 64=1, congestive heart failure=1, hypertension=1, DM=1, CAD=1, female sex=1). She was started on heparin drip. Stop heparin drip and start Eliquis 5 mg p.o. b.i.d. * continue eliquis and metoprolol * Echo shown LVEF 40-45% * Cardiology following Plan for AIDEN guided cardioversion as outpatient after 4 weeks of uninterrupted anticoagulation with Eliquis Scheduled 4/4 Resolved. Sinus rhyhtm on exam. (3) CHF (congestive heart failure): Code(s): I50.9 - Heart failure, unspecified Status: Acute Assessment and Plan: * Chronic * Echo shown LVEF of 40-45% per Cardiology notation * Continue Jardiance and Metoprolol * Entresto resumed as WILLIAN has improved * Lasix transitioned to bumex per nephrology * CXR showing congestive heart failure with cardiomegaly, pulmonary vascular congestion and mild pulmonary edema in the lower lung zones (4) WILLIAN (acute kidney injury): Code(s): N17.9 - Acute kidney failure, unspecified Status: Acute Assessment and Plan: Etiology may include prior contrast on 04/01, diuretics, Entresto use, and borderline hypotension Baseline creatinine runs ~ 1.8 - 2.3mg/dl for the last few years per Dr. Quintanilla Follows with Dr. Ortega for management of CKD * BUN/Cr 44/1.69 on am labs, continue to improve * Renal US: Normal right kidney, severe atrophy of left kidney. * Entresto resumed * Lasix transitioned to torsemide * Avoid nephrotoxic medication * Nephrology following * Continue to trend Resolved. Cr back to baseline. (5) Hypothyroidism: Code(s): E03.9 - Hypothyroidism, unspecified Status: Acute Assessment and Plan: * Continue synthroid (6) Diabetes: Code(s): E11.9 - Type 2 diabetes mellitus without complications Status: Chronic Assessment and Plan: * Hgb A1C 7.2 * Accu checks AC/HS * High dose SSI ordered * hypoglycemic protocol in place * Diabetic diet ordered Time Spent With Patient Time with patient: 25 - 35 minutes Subjective Date/time seen: 04/14/24 07:36 Interval history: 64yo F with a past medical history significant for CAD s/p PCI, CHFrEF, dyslipidemia, obesity, DAMI, Hypertension, and DM2 who presents to the hospital for shortness of breath and palpitations. Patient is pleasant sitting on the side of the bed. She has no complaints denying chest pain, shortness of breath, palpitations, nausea/vomiting and abdominal pain. Apnealink on 6 L bleed in performed overnight and patient continued to have saturations <88% for significant period of time. Discussed patient with Dr. Romero and will obtain another apnea link tonight with a 8L bleed in [facility]. Review of Systems Review of Systems: All systems reviewed & are unremarkable except as noted in HPI and below Exam Narrative: AF HR 72 RR 14 Spo2 92 1L NC BP 153/70 General: female in no acute respiratory distress who is nontoxic appearing, sitting up in her bed HEENT: Normocephalic. Atraumatic. Extraocular movement intact. Sclera clear and anicteric. Chest: Lungs are clear to auscultation bilaterally. No wheezes or crackles. CV: Heart was regular rate and rhythm. S1-S2. No murmurs, gallops, or rubs. Abd: Abdomen was soft. Nontender. Nondistended. Positive bowel sounds. Objective Data Vital Signs Vital Signs: Vital Signs - 24 hr 04/13/24 07:40 04/13/24 08:00 04/13/24 08:21 Temperature Pulse Rate 82 88 83 Respiratory Rate Blood Pressure Pulse Oximetry 98 Oxygen Delivery Oxygen Flow Rate 2 Fraction of Inspired Oxygen 04/13/24 08:24 04/13/24 10:10 04/13/24 12:00 Temperature Pulse Rate 83 84 93 Respiratory Rate 18 Blood Pressure Pulse Oximetry 96 87 L Oxygen Delivery Nasal Cannula Room Air Oxygen Flow Rate 1 Fraction of Inspired Oxygen 36 04/13/24 14:00 04/13/24 16:00 04/13/24 20:00 Temperature 98.8 F Pulse Rate 77 83 72 Respiratory Rate 20 14 Blood Pressure 111/63 Pulse Oximetry 98 97 Oxygen Delivery Nasal Cannula Oxygen Flow Rate 1 Fraction of Inspired Oxygen 04/13/24 20:00 04/13/24 21:11 04/13/24 21:12 Temperature 98.0 F Pulse Rate 72 80 80 Respiratory Rate 16 Blood Pressure 128/52 L Pulse Oximetry 97 Oxygen Delivery Oxygen Flow Rate Fraction of Inspired Oxygen 04/13/24 22:25 04/14/24 00:00 04/14/24 04:00 Temperature Pulse Rate 76 67 Respiratory Rate Blood Pressure Pulse Oximetry 97 Oxygen Delivery Nasal Cannula Oxygen Flow Rate 1 Fraction of Inspired Oxygen 04/14/24 05:39 Temperature 98.0 F Pulse Rate 72 Respiratory Rate 14 Blood Pressure 153/70 H Pulse Oximetry 92 Oxygen Delivery Oxygen Flow Rate Fraction of Inspired Oxygen Intake/Output Intake/Output: Intake & Output 04/11/24 04/12/24 04/13/24 04/15/24 23:59 23:59 23:59 00:59 Intake Total 2049 1390 1510 300 Balance 2049 1390 1510 300 Meds/Results Medications: Active Medications Generic Name Dose Route Start Last Admin Trade Name Freq PRN Reason Stop Dose Admin Acetaminophen 650 mg 04/03/24 10:34 04/06/24 09:54 Acetaminophen 325 Mg Tablet PO 650 mg Q4H PRN Administration Headache Albuterol/Ipratropium 3 ml 04/02/24 00:22 Ipratropium 0.5 Mg/Albuterol Sulfate 2.5 Mg Ampul.Neb 3 Ml INHALATION Q4HRT PRN shortness of breath/Wheezing Allopurinol 300 mg 04/03/24 09:00 04/13/24 08:22 Allopurinol 100 Mg Tablet PO 300 mg QAM PILO Administration Allopurinol 200 mg 04/03/24 18:00 04/13/24 17:07 Allopurinol 100 Mg Tablet PO 200 mg QPM PILO Administration Apixaban 5 mg 04/03/24 21:00 04/13/24 21:11 Apixaban 5 Mg Tablet PO 5 mg Q12HR PILO Administration Atorvastatin Calcium 80 mg 04/03/24 09:00 04/13/24 08:22 Atorvastatin 40 Mg Tablet PO 80 mg DAILY PILO Administration Buspirone HCl 5 mg 04/02/24 17:00 04/13/24 17:07 Buspirone Hcl 5 Mg Tablet PO 5 mg BID PILO Administration Ezetimibe 10 mg 04/03/24 09:00 04/13/24 08:21 Ezetimibe 10 Mg Tablet PO 10 mg DAILY PILO Administration Empagliflozin 10 mg 04/03/24 09:00 04/13/24 08:22 Empagliflozin 10 Mg Tablet PO 10 mg DAILY PILO Administration Escitalopram Oxalate 20 mg 04/03/24 09:00 04/13/24 08:22 Escitalopram Oxalate 10 Mg Tablet PO 20 mg DAILY PILO Administration Gabapentin 300 mg 04/02/24 13:00 04/13/24 17:07 Gabapentin 300 Mg Capsule PO 300 mg TID PILO Administration Insulin Aspart 4 - 8 units 04/06/24 17:00 04/13/24 17:07 Insulin Aspart (*Bkc) 100 Units/Ml SUB-Q Not Given TIDWM [facility] Protocol Insulin Aspart 2 - 4 units 04/06/24 21:00 04/13/24 21:12 Insulin Aspart (*Bkc) 100 Units/Ml SUB-Q 2 units HS PILO Administration Protocol Isosorbide Mononitrate 120 mg 04/03/24 09:00 04/13/24 08:22 Isosorbide Mononitrate 60 Mg Tab.Er.24h PO 120 mg DAILY PILO Administration Levothyroxine Sodium 100 mcg 04/03/24 06:30 04/14/24 05:36 Levothyroxine Sodium 100 Mcg Tablet PO 100 mcg DAILY@0630 PILO Administration Melatonin 5 mg 04/02/24 00:22 Melatonin 5 Mg Tablet PO HS PRN Insomnia Metoprolol Tartrate 12.5 mg 04/02/24 00:30 04/13/24 21:11 Metoprolol Tartrate 12.5 Mg Tablet PO 12.5 mg Q12HR PILO Administration Prochlorperazine Edisylate 10 mg 04/02/24 00:22 04/13/24 17:08 Prochlorperazine Edisylate 10 Mg/2 Ml Vial IV PUSH 10 mg Q6H PRN Administration Nausea And Vomiting Sacubitril/Valsartan 1 tab 04/11/24 09:00 04/13/24 21:11 Sacubitril/Valsartan 97-103 Mg Tablet PO 1 tab Q12HR PILO Administration Torsemide 10 mg 04/12/24 09:00 04/13/24 08:21 Torsemide 10 Mg Tablet PO 10 mg QAM PILO Administration Radiology Results: ITS Impressions Chest CTA 04/01/24 19:46 IMPRESSION: No CT evidence of acute pulmonary embolus. No acute process detected in the chest. Venous Doppler Study 04/01/24 19:59 IMPRESSION: Patent bilateral lower extremity veins. No evidence of deep venous thrombosis. Renal Ultrasound 04/05/24 14:58 IMPRESSION: 1. Normal right kidney. 2. Severe atrophy of left kidney. Chest X-Ray 04/11/24 06:14 Impression: Central congestive change and questionable focal developing hazy right basilar airspace disease. Stable cardiomegaly. Labs Labs: Laboratory Results - last 24 hr 04/13/24 04/13/24 04/13/24 07:11 08:09 11:39 WBC 7.4 RBC 2.86 L Hgb 8.6 L Hct 28.5 L MCV 99.7 MCH 30.1 MCHC 30.2 L RDW 14.5 Plt Count 183 MPV 9.5 Immature Gran % (Auto) 0.7 H Neut % (Auto) 74.7 H Lymph % (Auto) 13.0 L [place] % (Auto) 7.7 Eos % (Auto) 3.5 Baso % (Auto) 0.4 Lymph # (Auto) 0.96 [place] # (Auto) 0.6 Eos # (Auto) 0.3 Baso # (Auto) 0.0 Abs Immat Gran (auto) 0.05 H Absolute Neuts (auto) 5.5 Absolute Nucleated RBC 0.000 Band Neutrophils % Nucleated RBC % 0.0 Platelet Estimate Hypochromasia Stomatocytes Schistocytes Sodium 143 Potassium 4.7 Chloride 106 Carbon Dioxide 32 H Anion Gap 5 BUN 48 H Creatinine 1.72 H Estim Creat Clear Calc 38 Estimated GFR 30 L Glucose 125 H POC Capillary Glucose 112 H 176 H Calcium 9.0 Phosphorus 3.3 Magnesium 2.2 Total Bilirubin 0.5 AST 18 ALT 15 Alkaline Phosphatase 81 Total Protein 7.0 Albumin 3.3 L 04/13/24 04/13/24 04/14/24 16:03 21:16 06:33 WBC 6.7 RBC 3.34 L Hgb 9.8 L Hct 33.5 L MCV 100.3 H MCH 29.3 MCHC 29.3 L RDW 14.5 Plt Count 238 MPV 9.5 Immature Gran % (Auto) 0.4 Neut % (Auto) 73.9 H Lymph % (Auto) 13.5 L [place] % (Auto) 7.0 Eos % (Auto) 4.8 H Baso % (Auto) 0.4 Lymph # (Auto) 0.90 [place] # (Auto) 0.5 Eos # (Auto) 0.3 Baso # (Auto) 0.0 Abs Immat Gran (auto) 0.03 Absolute Neuts (auto) 4.9 Absolute Nucleated RBC 0.000 Band Neutrophils % Not Reportable Nucleated RBC % 0.0 Platelet Estimate Adequate Hypochromasia 1+ Stomatocytes 1+ Schistocytes None seen Sodium 145 Potassium 5.5 H Chloride 105 Carbon Dioxide 33 H Anion Gap 7 BUN 44 H Creatinine 1.69 H Estim Creat Clear Calc 38 Estimated GFR 30 L Glucose 135 H POC Capillary Glucose 151 H 207 H Calcium 9.8 Phosphorus 3.9 Magnesium 2.3 Total Bilirubin 0.6 AST 20 ALT 17 Alkaline Phosphatase 92 Total Protein 7.0 Albumin 3.8 Quality VTE Prophylaxis VTE prophylaxis: pharmacologic ordered
[2024-04-14 08:05] LABS: Glucose Point of Care 124 mg/dl (65-105)
[2024-04-14] MEDS: GABAPENTIN 300 MG CAPSULE PO ×4 (08:05→21:22)
[2024-04-14] MEDS: TORSEMIDE 10 MG TABLET PO (08:05)
[2024-04-14] MEDS: busPIRone HCL 5 MG TABLET PO ×2 (08:06→16:59)
[2024-04-14] MEDS: APIXABAN 5 MG TABLET PO ×2 (08:06→21:21)
[2024-04-14] MEDS: ESCITALOPRAM OXALATE 10 MG TABLET 20 MG PO (08:06)
[2024-04-14] MEDS: SACUBITRIL/VALSARTAN 97-103 MG TABLET 1 TAB PO ×2 (08:06→21:21)
[2024-04-14] MEDS: allopurinoL 100 MG TABLET 300 MG PO (08:06)
[2024-04-14] MEDS: EMPAGLIFLOZIN 10 MG TABLET PO (08:06)
[2024-04-14] MEDS: ATORVASTATIN 40 MG TABLET 80 MG PO (08:07)
[2024-04-14] MEDS: EZETIMIBE 10 MG TABLET PO (08:07)
[2024-04-14] MEDS: ISOSORBIDE MONONITRATE 60 MG TAB.ER.24H 120 MG PO (08:07)
[2024-04-14] MEDS: METOPROLOL TARTRATE 12.5 MG TABLET PO ×2 (08:08→21:21)
[2024-04-14] MEDS: TORSEMIDE 10 MG TABLET 30 MG PO (10:28)
[2024-04-14] MEDS: SODIUM ZIRCONIUM CYCLOSILICATE 10 GM POWD.PACK PO (10:29)
[2024-04-14 11:48] LABS: Glucose Point of Care 279 mg/dl (65-105)
[2024-04-14] MEDS: INSULIN ASPART (*BKC) 100 UNITS/ML SUB-Q ×2 (11:54→21:25)
[2024-04-14 16:50] LABS: Glucose Point of Care 181 mg/dl (65-105)
[2024-04-14] MEDS: allopurinoL 100 MG TABLET 200 MG PO (17:00)
[2024-04-14] MEDS: TORSEMIDE 20 MG TABLET PO (17:03)
[2024-04-14 20:49] LABS: Glucose Point of Care 261 mg/dl (65-105)
[2024-04-14 22:14] LABS: Glucose Point of Care 223 mg/dl (65-105)
[2024-04-15] VITALS (12 sets, daily range): BP systolic 134–171; BP diastolic 55–81; PULSE 59–86; RESP 16–18; TEMP 36.4–36.7; O2SAT 87–98
[2024-04-15 05:06] LABS: Basophils Percent Auto 0.5 % (0.2-1.2); Eosinophils Absolute Auto 0.3 K/mm3 (0-0.3); Eosinophils Percent Auto 4.1 % (0-4.4); Hematocrit 28.4 % (37.0-47.0); Hemoglobin 8.6 g/dL (12.0-15.0); Immature Granulocyte Absolute 0.02 K/mm3 (0.00-0.031); Immature Granulocyte Percent A 0.3 % (0-0.5); Lymphocytes Absolute Auto 0.86 K/mm3 (0.9-3.2); Lymphocytes Percent Auto 12.9 % (18.3-44.2); Mean Corpuscular HGB Conc 30.3 g/dl (32-36); Mean Corpuscular Hemoglobin 30.2 pg (26-34); Mean Corpuscular Volume 99.6 fl (80-100); Mean Platelet Volume 9.8 fl (7.4-10.4); Monocytes Absolute Auto 0.5 K/mm3 (0.1-0.6); Monocytes Percent Auto 7.8 % (2.6-8.5); Neutrophils Percent Auto 74.4 % (45.5-73.1); Platelet Count Result 222 k/mm3 (150-375); Red Blood Count 2.85 M/mm3 (4.2-5.4); Red Cell Distribution Width 14.5 % (11.5-14.5); White Blood Count 6.7 K/mm3 (4.5-10.0)
[2024-04-15 05:17] LABS: Alanine Aminotransferase 17 U/L (6-35); Albumin Level 3.4 g/dL (3.5-5.1); Alkaline Phosphatase 86 U/L (38-126); Anion Gap 7 mmol/L (4-12); Aspartate Amino Transferase 19 U/L (14-36); Bilirubin,Total 0.4 mg/dL (0.2-1.3); Blood Urea Nitrogen 49 mg/dL (7-17); Calcium 9.1 mg/dL (8.4-10.2); Carbon Dioxide 34 mmol/L (22-30); Chloride 102 mmol/L (98-107); Estimated CRCL calculation 38 ml/min; Estimated Glomerular Filt Rate 30; Glucose 190 mg/dL (65-110); Magnesium 2.1 mg/dL (1.6-2.3); Phosphorus 3.8 mg/dL (2.5-4.5); Potassium 5.4 mmol/L (3.4-5.0); Sodium 143 mmol/L (137-145)
[2024-04-15] MEDS: LEVOTHYROXINE SODIUM 100 MCG TABLET PO (06:10)
[2024-04-15 08:19] LABS: Glucose Point of Care 146 mg/dl (65-105)
[2024-04-15] MEDS: EZETIMIBE 10 MG TABLET PO (08:40)
[2024-04-15] MEDS: busPIRone HCL 5 MG TABLET PO (08:40)
[2024-04-15] MEDS: APIXABAN 5 MG TABLET PO (08:40)
[2024-04-15] MEDS: allopurinoL 100 MG TABLET 300 MG PO (08:41)
[2024-04-15] MEDS: ESCITALOPRAM OXALATE 10 MG TABLET 20 MG PO (08:41)
[2024-04-15] MEDS: METOPROLOL TARTRATE 12.5 MG TABLET PO (08:41)
[2024-04-15] MEDS: ISOSORBIDE MONONITRATE 60 MG TAB.ER.24H 120 MG PO (08:42)
[2024-04-15] MEDS: EMPAGLIFLOZIN 10 MG TABLET PO (08:42)
[2024-04-15] MEDS: TORSEMIDE 20 MG TABLET 40 MG PO (08:42)
[2024-04-15] MEDS: ATORVASTATIN 40 MG TABLET 80 MG PO (08:43)
--- NOTE | 2024-04-15 09:30 | P.PNPL_ITS ---
Progress Note: A&P Assessment and Plan (1) Acute hypoxic respiratory failure: Code(s): J96.01 - Acute respiratory failure with hypoxia Status: Acute (2) Hypercapnic respiratory failure: Code(s): J96.92 - Respiratory failure, unspecified with hypercapnia Status: Acute Assessment and Plan: A 64-year-old female with morbid obesity and a history of sleep apnea, previously managed with CPAP therapy, presented with hypoxemia following a device malfunction approximately six weeks ago. She was diagnosed with atrial fibrillation with a rapid ventricular response and has been treated successfully, returning to normal sinus rhythm. Initial arterial blood gas analysis revealed respiratory acidosis, with a pH of approximately 7.26 and a pCO2 over 60 mmHg. The patient received BiPAP support followed by BiPAP AVAPS, leading to improvement in arterial blood gases, with recent pH levels above 7.3 and pCO2 below 60 mmHg. The patient has been using a home ventilator unit and underwent several ApneaLink studies over the past week. Initially, she experienced severe oxyhemoglobin desaturation, which was thought to be due to a poor mask fit. The initial ventilator settings included a tidal volume of 500 mL, a pressure support range of 10-30 cm H2O, an EPAP range of 4-18 cm H2O, and 4 L/min of oxygen bleed-in. Over the past few days, ApneaLink studies were conducted with adjusted ventilator settings, such as increasing the EPAP range to 8-20 cm H2O and gradually increasing supplemental oxygen to 8 L/min. These adjustments resulted in a significant improvement in the patient's oxyhemoglobin saturation. Plan: From a respiratory standpoint, the patient is cleared for discharge with the following home ventilator settings: tidal volume of 550 mL, pressure support range of 10-30 cm H2O, EPAP range of 8-20 cm H2O, respiratory rate of 20 breaths per minute, and supplemental oxygen at 8 L/min during nighttime bleed-in. Add itionally, a home oxygen evaluation is necessary to assess the patient's daytime oxygen requirements. The patient has been given the pulmonary clinic's business card and is advised to schedule an appointment within the next two weeks. Please feel free to contact me with any questions.p (3) CHF (congestive heart failure): Code(s): I50.9 - Heart failure, unspecified Status: Acute (4) Atrial fibrillation with RVR: Code(s): I48.91 - Unspecified atrial fibrillation Status: Acute (5) Acute on chronic systolic heart failure: Code(s): I50.23 - Acute on chronic systolic (congestive) heart failure Status: Acute Subjective Date/time seen: 04/15/24 09:30 Interval history: Patient has had no new respiratory symptoms. Over the weekend she underwent ApneaLink study with a new home ventilator settings, EPAP range 8 to 20, and supplemental oxygen that was progressively increased from 4 L to 8 L because of continuing oxyhemoglobin desaturation. Finally on 8 liters/minute oxygen while the patient on the home ventilator unit her oxyhemoglobin saturation significantly improved. Patient is currently fully awake having no new respiratory issues. Review of Systems Review of Systems: All systems reviewed & are unremarkable except as noted in HPI and below (HPI and below) Exam Narrative: GENERAL APPEARANCE: Well developed, well nourished, alert and cooperative, obese and appears to be in no acute distress while receiving a BiPAP support and supplemental oxygen SKIN: Inspection of the skin reveals no rashes, ulcerations or petechiae. HEENT: Sclerae anicteric and conjunctivae pink and moist. Extraocular movements were intact and pupils were equal, round, and reactive to light. The oral mucosa, hard and soft palate, tongue and posterior pharynx were normal. NECK: Supple. There was no thyroid enlargement, and no tenderness, or masses were felt. CHEST: Normal AP diameter and normal contour without any kyphoscoliosis. LUNGS: Auscultation of the lungs revealed normal breath sounds without any other adventitious sounds or rubs. CARDIAC: There was a regular rate and rhythm without any murmurs, gallops, rubs. ABDOMEN: Soft and nontender with normal bowel sounds. There was no organomegaly. LYMPH NODES: No lymphadenopathy was appreciated in the neck. EXTREMITIES: No cyanosis, clubbing or edema. NEUROLOGIC: Alert and oriented x 3. Normal affect. Objective Data Vital Signs Vital Signs: Vital Signs - 24 hr 04/14/24 12:00 04/14/24 14:00 04/14/24 16:00 Temperature 36.7 C Pulse Rate 76 98 80 Respiratory Rate 20 Blood Pressure 134/57 L Pulse Oximetry 98 Oxygen Delivery Oxygen Flow Rate 04/14/24 20:00 04/14/24 20:00 04/14/24 21:21 Temperature Pulse Rate 79 81 Respiratory Rate Blood Pressure Pulse Oximetry 91 Oxygen Delivery Nasal Cannula Oxygen Flow Rate 2 04/14/24 21:58 04/14/24 22:15 04/14/24 23:53 Temperature 36.8 C Pulse Rate 82 77 Respiratory Rate 18 Blood Pressure 117/41 L Pulse Oximetry 96 97 97 Oxygen Delivery CPAP CPAP Oxygen Flow Rate 8 04/15/24 00:00 04/15/24 04:00 04/15/24 06:00 Temperature 36.7 C Pulse Rate 76 78 70 Respiratory Rate 18 Blood Pressure 160/67 H Pulse Oximetry 95 Oxygen Delivery Oxygen Flow Rate 04/15/24 08:36 04/15/24 08:41 Temperature 36.4 C Pulse Rate 85 81 Respiratory Rate 18 Blood Pressure 171/81 H Pulse Oximetry 93 Oxygen Delivery Oxygen Flow Rate Intake/Output Intake/Output: Intake & Output 04/12/24 04/13/24 04/15/24 04/15/24 23:59 23:59 00:59 23:59 Intake Total 1390 1510 3520 240 Balance 1390 1510 3520 240 Meds/Results Medications: Active Medications Generic Name Dose Route Start Last Admin Trade Name Freq PRN Reason Stop Dose Admin Acetaminophen 650 mg 04/03/24 10:34 04/06/24 09:54 Acetaminophen 325 Mg Tablet PO 650 mg Q4H PRN Administration Headache Albuterol/Ipratropium 3 ml 04/02/24 00:22 Ipratropium 0.5 Mg/Albuterol Sulfate 2.5 Mg Ampul.Neb 3 Ml INHALATION Q4HRT PRN shortness of breath/Wheezing Allopurinol 300 mg 04/03/24 09:00 04/15/24 08:41 Allopurinol 100 Mg Tablet PO 300 mg QAM PILO Administration Allopurinol 200 mg 04/03/24 18:00 04/14/24 17:00 Allopurinol 100 Mg Tablet PO 200 mg QPM PILO Administration Apixaban 5 mg 04/03/24 21:00 04/15/24 08:40 Apixaban 5 Mg Tablet PO 5 mg Q12HR PILO Administration Atorvastatin Calcium 80 mg 04/03/24 09:00 04/15/24 08:43 Atorvastatin 40 Mg Tablet PO 80 mg DAILY PILO Administration Buspirone HCl 5 mg 04/02/24 17:00 04/15/24 08:40 Buspirone Hcl 5 Mg Tablet PO 5 mg BID PILO Administration Ezetimibe 10 mg 04/03/24 09:00 04/15/24 08:40 Ezetimibe 10 Mg Tablet PO 10 mg DAILY PILO Administration Empagliflozin 10 mg 04/03/24 09:00 04/15/24 08:42 Empagliflozin 10 Mg Tablet PO 10 mg DAILY PILO Administration Escitalopram Oxalate 20 mg 04/03/24 09:00 04/15/24 08:41 Escitalopram Oxalate 10 Mg Tablet PO 20 mg DAILY PILO Administration Gabapentin 300 mg 04/02/24 13:00 04/14/24 21:22 Gabapentin 300 Mg Capsule PO 300 mg TID PILO Administration Insulin Aspart 4 - 8 units 04/06/24 17:00 04/15/24 08:46 Insulin Aspart (*Bkc) 100 Units/Ml SUB-Q Not Given TIDWM [facility] Protocol Insulin Aspart 2 - 4 units 04/06/24 21:00 04/14/24 21:25 Insulin Aspart (*Bkc) 100 Units/Ml SUB-Q 2 units HS PILO Administration Protocol Isosorbide Mononitrate 120 mg 04/03/24 09:00 04/15/24 08:42 Isosorbide Mononitrate 60 Mg Tab.Er.24h PO 120 mg DAILY PILO Administration Levothyroxine Sodium 100 mcg 04/03/24 06:30 04/15/24 06:10 Levothyroxine Sodium 100 Mcg Tablet PO 100 mcg DAILY@0630 PILO Administration Melatonin 5 mg 04/02/24 00:22 Melatonin 5 Mg Tablet PO HS PRN Insomnia Metoprolol Tartrate 12.5 mg 04/02/24 00:30 04/15/24 08:41 Metoprolol Tartrate 12.5 Mg Tablet PO 12.5 mg Q12HR PILO Administration Prochlorperazine Edisylate 10 mg 04/02/24 00:22 04/13/24 17:08 Prochlorperazine Edisylate 10 Mg/2 Ml Vial IV PUSH 10 mg Q6H PRN Administration Nausea And Vomiting Sacubitril/Valsartan 1 tab 04/11/24 09:00 04/14/24 21:21 Sacubitril/Valsartan 97-103 Mg Tablet PO 1 tab Q12HR PILO Administration Torsemide 40 mg 04/15/24 09:00 04/15/24 08:42 Torsemide 20 Mg Tablet PO 40 mg QAM PILO Administration Torsemide 20 mg 04/14/24 18:00 04/14/24 17:03 Torsemide 20 Mg Tablet PO 20 mg QPM PILO Administration Radiology Results: ITS Impressions Chest CTA 04/01/24 19:46 IMPRESSION: No CT evidence of acute pulmonary embolus. No acute process detected in the chest. Venous Doppler Study 04/01/24 19:59 IMPRESSION: Patent bilateral lower extremity veins. No evidence of deep venous thrombosis. Renal Ultrasound 04/05/24 14:58 IMPRESSION: 1. Normal right kidney. 2. Severe atrophy of left kidney. Chest X-Ray 04/11/24 06:14 Impression: Central congestive change and questionable focal developing hazy right basilar airspace disease. Stable cardiomegaly. Labs Labs: Laboratory Results - last 24 hr 04/14/24 04/14/24 04/14/24 11:30 16:47 20:39 WBC RBC Hgb Hct MCV MCH MCHC RDW Plt Count MPV Immature Gran % (Auto) Neut % (Auto) Lymph % (Auto) [place] % (Auto) Eos % (Auto) Baso % (Auto) Lymph # (Auto) [place] # (Auto) Eos # (Auto) Baso # (Auto) Abs Immat Gran (auto) Absolute Neuts (auto) Absolute Nucleated RBC Nucleated RBC % Sodium Potassium Chloride Carbon Dioxide Anion Gap BUN Creatinine Estim Creat Clear Calc Estimated GFR Glucose POC Capillary Glucose 279 H 181 H 261 H Calcium Phosphorus Magnesium Total Bilirubin AST ALT Alkaline Phosphatase Total Protein Albumin 04/14/24 04/15/24 04/15/24 21:30 04:24 08:14 WBC 6.7 RBC 2.85 L Hgb 8.6 L Hct 28.4 L MCV 99.6 MCH 30.2 MCHC 30.3 L RDW 14.5 Plt Count 222 MPV 9.8 Immature Gran % (Auto) 0.3 Neut % (Auto) 74.4 H Lymph % (Auto) 12.9 L [place] % (Auto) 7.8 Eos % (Auto) 4.1 Baso % (Auto) 0.5 Lymph # (Auto) 0.86 L [place] # (Auto) 0.5 Eos # (Auto) 0.3 Baso # (Auto) 0.0 Abs Immat Gran (auto) 0.02 Absolute Neuts (auto) 5.0 Absolute Nucleated RBC 0.000 Nucleated RBC % 0.0 Sodium 143 Potassium 5.4 H Chloride 102 Carbon Dioxide 34 H Anion Gap 7 BUN 49 H Creatinine 1.70 H Estim Creat Clear Calc 38 Estimated GFR 30 L Glucose 190 H POC Capillary Glucose 223 H 146 H Calcium 9.1 Phosphorus 3.8 Magnesium 2.1 Total Bilirubin 0.4 AST 19 ALT 17 Alkaline Phosphatase 86 Total Protein 6.0 L Albumin 3.4 L
--- NOTE | 2024-04-15 10:53 | HOMEO2EVAL ---
Evaluation was performed at [facility] Home Oxygen Evaluation RC: Home Oxygen (O2) Evaluation Start: 04/15/24 09:52 Freq: ONCE Status: Active Protocol: RPE Activity Type Activity Date Activity User E-sign Co-sign Detail Recorded Client Recorded Date Recorded By Document 04/15/24 10:30 MARA [email or web address] 04/15/24 10:53 MARA Document 04/15/24 10:31 MARA [email or web address] 04/15/24 10:53 MARA Document 04/15/24 10:35 MARA [email or web address] 04/15/24 10:53 MARA Document 04/15/24 10:52 [email or web address] [email or web address] 04/15/24 10:53 MARA 04/15/24 04/15/24 04/15/24 10:30 10:31 10:35 Home O2 Evaluation [Oxygen] -Test Phase Resting Resting Exercise -Oxygen Delivery Room Air Nasal Cannula Nasal Cannula -Oxygen Flow Rate (L/min) 1 1 [Pulse Oximetry] -Pulse Oximetry (90-100 %) 87 L 92 93 [Pulse Rate] -Pulse Rate (60-100 beats/min) 76 86 [Evaluation] -Activity Tolerance Excellent [Exercise] -Ambulation Distance (feet) 75 -Ambulation Distance (meters) 22.85 [Comments] -Home Oxygen Evaluation Comments Home O2 needed at 1 l resting and with ambulation/ exertion [Charges] -Evaluation Charges O2 Evaluation by Pulmonary 04/15/24 10:52 Home O2 Evaluation [Oxygen] -Test Phase Resting -Oxygen Delivery Nasal Cannula -Oxygen Flow Rate (L/min) 1 [Pulse Oximetry] -Pulse Oximetry (90-100 %) 93 [Pulse Rate] -Pulse Rate (60-100 beats/min) 72 [Evaluation] -Activity Tolerance [Exercise] -Ambulation Distance (feet) -Ambulation Distance (meters) [Comments] -Home Oxygen Evaluation Comments [Charges] -Evaluation Charges
--- NOTE | 2024-04-15 11:15 | PCRCNOTE ---
Home O2 set up with IV Respiratory Care, and NIV unit with [facility]. Pt requires 1 liter at rest and with exertion, and 8 liters bleed-in with dominique niv unit for sleep/naps.
[2024-04-15 12:11] LABS: Glucose Point of Care 327 mg/dl (65-105)
[2024-04-15] MEDS: GABAPENTIN 300 MG CAPSULE PO (12:27)
[2024-04-15] MEDS: INSULIN ASPART (*BKC) 100 UNITS/ML SUB-Q (12:27)
--- NOTE | 2024-04-15 13:20 | P.DS_ITS ---
DS: Admitting Diagnosis Discharge Date 04/15/2024 Admitting Diagnosis acute hypoxic respiratory failure a fib RVR chf willian hypothyroidism dm DS: Discharge Diagnosis Discharge Diagnosis (1) Acute hypoxic respiratory failure: Code(s): J96.01 - Acute respiratory failure with hypoxia Status: Acute (2) Atrial fibrillation with RVR: Code(s): I48.91 - Unspecified atrial fibrillation Status: Acute (3) CHF (congestive heart failure): Code(s): I50.9 - Heart failure, unspecified Status: Acute (4) WILLIAN (acute kidney injury): Code(s): N17.9 - Acute kidney failure, unspecified Status: Acute (5) Hypothyroidism: Code(s): E03.9 - Hypothyroidism, unspecified Status: Acute (6) Diabetes: Code(s): E11.9 - Type 2 diabetes mellitus without complications Status: Chronic DS: Summary Hospital Course Reason for hospitalization: acute hypoxic respiratory failure a fib RVR chf willian hypothyroidism dm Hospital Course: 64yo F with a past medical history significant for CAD s/p PCI, CHFrEF, dyslipid emia, obesity, DAMI, Hypertension, and DM2 who presents to the hospital for shortness of breath and palpitations. Patient noted to be hypoxic on arrival and was placed on supplemental oxygen. CTA negative for PE. ABG on admission showing pH 7.177, pCO2 78.2, pO2 76.5, Bicarb 28.3. Patient was placed on continuous bipap with follow up ABG showing 7.254, PCO2 61.8, pO2 69.9, bicarb 26.2. Throughout admission patients ABG returned to normal. Pulmonology consulted. CXR 04/06 showing congestive heart failure with cardiomegaly, pulmonary vascular congestion and mild pulmonary edema in the lower lung zones Throughout admission patient underwent several apnea links to adjust her home settings. Initially, she experienced severe oxyhemoglobin desaturation, however after further adjustments were made her levels remained stable. Patient to continue EPAP range to 8-20 cm H2O with supplemental oxygen of 8 L/min at home. Patient was noted to be in new onset afib RVR. Cardiology consulted. Patient s tarted on eliquis and remains on home metoprolol. Echo showing LVEF 40-45%. Prior to discharge patient converted back to sinus rhythm. Per cardiology plan for AIDEN CV in the outpatient setting after 4 weeks of eliquis. Throughout admission patient was noted to have an WILLIAN. Renal US showed normal right kidney and severe atrophy of the left. Nephrology was consulted and lasix was transitioned to torsemide. Prior to discharge discussed patient with Nephrology . He states it is okay for patient to be resumed on her torsemide and Entresto at discharge as her renal function has returned to baseline. At time of discharge patient has no complaints denying chest pain, shortness of breath, palpitations, nausea/vomiting and abdominal pain. Patient discharged home in a stable condition. She is to follow up with her PCP in 1 week and the specialists as scheduled. Status at Discharge Functional status at discharge: independent ambulation Time Spent with Patient Time attestation: Total time spent providing and/or coordinating discharge services: Time spent: Greater than 30 minutes Exam Narrative: AF HR 72 RR 16 SpO2 98 1L NC BP 134/55 General: female in no acute respiratory distress who is nontoxic appearing, sitting up in her bed HEENT: Normocephalic. Atraumatic. Extraocular movement intact. Sclera clear and anicteric. Chest: Lungs are clear to auscultation bilaterally. No wheezes or crackles. CV: Heart was regular rate and rhythm. S1-S2. No murmurs, gallops, or rubs. Abd: Abdomen was soft. Nontender. Nondistended. Positive bowel sounds. DS: Data Data Completed and Pending Completed studies during hospitalization: chest xr chest xr chest xr chest xr Labs on day of discharge: Labs from last 24 hours 04/15/24 04/15/24 04/15/24 12:06 08:14 04:24 WBC 6.7 RBC 2.85 L Hgb 8.6 L Hct 28.4 L MCV 99.6 MCH 30.2 MCHC 30.3 L RDW 14.5 Plt Count 222 MPV 9.8 Immature Gran % (Auto) 0.3 Neut % (Auto) 74.4 H Lymph % (Auto) 12.9 L Grant % (Auto) 7.8 Eos % (Auto) 4.1 Baso % (Auto) 0.5 Lymph # (Auto) 0.86 L Grant # (Auto) 0.5 Eos # (Auto) 0.3 Baso # (Auto) 0.0 Abs Immat Gran (auto) 0.02 Absolute Neuts (auto) 5.0 Absolute Nucleated RBC 0.000 Nucleated RBC % 0.0 Sodium 143 Potassium 5.4 H Chloride 102 Carbon Dioxide 34 H Anion Gap 7 BUN 49 H Creatinine 1.70 H Estim Creat Clear Calc 38 Estimated GFR 30 L Glucose 190 H POC Capillary Glucose 327 H 146 H Calcium 9.1 Phosphorus 3.8 Magnesium 2.1 Total Bilirubin 0.4 AST 19 ALT 17 Alkaline Phosphatase 86 Total Protein 6.0 L Albumin 3.4 L 04/14/24 04/14/24 04/14/24 21:30 20:39 16:47 WBC RBC Hgb Hct MCV MCH MCHC RDW Plt Count MPV Immature Gran % (Auto) Neut % (Auto) Lymph % (Auto) Grant % (Auto) Eos % (Auto) Baso % (Auto) Lymph # (Auto) Grant # (Auto) Eos # (Auto) Baso # (Auto) Abs Immat Gran (auto) Absolute Neuts (auto) Absolute Nucleated RBC Nucleated RBC % Sodium Potassium Chloride Carbon Dioxide Anion Gap BUN Creatinine Estim Creat Clear Calc Estimated GFR Glucose POC Capillary Glucose 223 H 261 H 181 H Calcium Phosphorus Magnesium Total Bilirubin AST ALT Alkaline Phosphatase Total Protein Albumin Discharge Plan Discharge Attending physician on discharge: Aldo Cunningham Consulting providers: Kerrie Wilson; Siddhartha Chen; Tracy Bullock; Kristofer Campa; Vince Whitaker; Alonso Barroso; Carolyne Gage; Peace Dominguez; Shani Wilkerson; Danny Quintanilla; Mireya Laws; Shayna Godfrey; Armando Ly; Jeannette Jones; Te Jovel V.; Melvin Heller; Michael Nelson Discharging Clinician: Shani Wilkerson Anticipated Discharge Date/Time: 04/06/24 07:40 Patient Disposition: Home, Self-Care Activity: as tolerated Diet: as tolerated, heart healthy and diabetic Discharge Instructions: Discharge disposition: Patient admitted to the hospital for shortness of breath Evaluated by pulmonology Per pulmonology: home ventilator settings: tidal volume of 550 mL, pressure support range of 10-30 cm H2O, EPAP range of 8-20 cm H2O, respiratory rate of 20 breaths per minute, and supplemental oxygen at 8 L/min during nighttime bleed-in. continue home oxygen supplementation of 1 liter nasal cannula at rest and with ambulation Follow up with pulmonology clinic in 2 weeks During admission patient noted to be in atrial fibrillation Evaluated by cardiology Started on eliquis and remains on metoprolol Attached is information on these medications Strict bleeding precautions since you are being started on eliquis including shaving with an electric razor, holding pressure for greater than 20 minutes for injury, protection of had with any falls, etc. Follow up with Cardiology in 4 weeks for AIDEN guided cardioversion Resumed your torsemide and entresto Recheck creatinine level in 1 week Follow up with Nephrology in 1 week Take medications as prescribed Monitor blood pressures Take caution while standing, rising, or moving Change positions slowly taking a break between each position change If you standing feel dizzy sit back down and take a break Encouraged to continue with yearly vaccinations Return to the emergency department if he developed sudden shortness of breath, chest pain, nausea, vomiting, upset stomach or intractable diarrhea Return to the emergency department if you develop fever greater than 101.5 Follow-up with the primary care physician within 1-2 weeks Thank you for [facility] for your healthcare needs Patient Instructions: Antibiotic Form, Torsemide (By mouth), Apixaban (By mouth), A-fib (Atrial Fibrillation) (DC), Using Oxygen at Home (DC), CPAP (GEN), Blood Thinners (DC) Patient Language: Chilean Stand Alone Forms: General Discharge Information Follow-up/Referrals: Pepe,Himanshu Cottrell MD [Primary Care Provider] - 1 Week Tracy Bullock MD [Physician] - 2 Weeks Colton Torre MD [Physician] - 4 Weeks Siddhartha Chen MD [Physician] - 2 Weeks Discharge Medications: New Eliquis 5 mg Tablet 5 mg PO Q12HR Qty: 60 0RF metoprolol tartrate 25 mg tablet 12.5 mg PO BID Qty: 30 0RF gabapentin [Neurontin] 300 mg Capsule 300 mg PO TID Qty: 90 0RF torsemide 20 mg Tablet 20 mg PO QPM Qty: 30 0RF torsemide 20 mg Tablet 40 mg PO QAM Qty: 30 0RF Continued allopurinol 100 mg tablet See Rx Instructions PO .COMPLEX Rx Instructions: 500 mg orally; 300 in the morning and 200 in the evening buspirone 5 mg tablet 5 mg PO BID atorvastatin 80 mg tablet 80 mg PO DAILY insulin lispro [Humalog KwikPen Insulin] 100 unit/mL insulin pen 1 sliding scale dose SUBCUT ACHS escitalopram oxalate 20 mg tablet 20 mg PO DAILY eplerenone 25 mg tablet 25 mg PO DAILY ezetimibe 10 mg tablet 10 mg PO DAILY Jardiance 10 mg tablet 10 mg PO DAILY sacubitril-valsartan [Entresto] 97-103 mg tablet 1 tablet PO BID Ozempic 0.25 mg or 0.5 mg (2 mg/3 mL) pen injector 0.25 mg SUBCUT WEEKLY isosorbide mononitrate 120 mg tablet extended release 24 hr 120 mg PO DAILY clopidogrel 75 mg tablet 75 mg PO DAILY levothyroxine 100 mcg tablet 100 mcg PO DAILY albuterol sulfate 90 mcg/actuation HFA aerosol inhaler 2 puff INHALATION PRN Held torsemide 10 mg tablet See Rx Instructions PO .COMPLEX Hold Instructions: Resume on 04/20/24. Follow up with cardiology as they may have changed this medication to Lasix however we have Lasix on hold due to your acute kidney injury. Continue to hold this medication and follow up with nephrology and Cardiology after you get your labs drawn. Rx Instructions: 60 mg- 40 mg in morning. 20 mg in the afternoon. orally; 10 mg orally 6; Discontinued metoprolol succinate 25 mg tablet extended release 24 hr 25 mg PO DAILY Other Ambulatory Orders: Basic Metabolic Panel (Routine) Timeframe: 1 Week Location: Determined by Patient Ordered By: Shani Wilkerson Date of admission: 04/02/24 09:14 Primary Care Provider: PepeHimanshu Admitting Provider: Aashish Carrillo Attending physician on admission: Dinora Ashby Condition: Stable Hospitalist MIPS Heart Failure (Exclusion) Patient has history of Heart Transplant or Left Ventricular Assistive Device?: No IF YES, STOP HERE Heart Failure (Qualifier) Patient has current or prior documentation of LVEF less than or equal to 40%, or mod/servere depressed LVSF?: Yes IF NO, STOP HERE If Yes, Heart Failure (Qualifier) Patient was prescribed or already taking an Angiotensin-Converting Enzyme (CHARLIE) Inhibitor, or Antiotensin Receptor Tarsha (ARB): Yes Patient was prescribed or already taking bisoprolol, carvedilol, or sustained release metoprolol succinate: Yes
== END 2024-04-15 14:08 | disposition home or self-care (01) | DRG 189 ==
LOC: ANHED 22:23 → ANHIMU 23:16 → ANH2MED 04-03 19:51
PROVIDERS: Internal Medicine Critical Care Medicine; Internal Medicine Nephrology; Internal Medicine Pulmonary Disease; Nurse Practitioner Acute Care; Nurse Practitioner Family; Admitting Provider Internal Medicine; Emergency Provider Physician Assistant; PCP Family Medicine; Visit Provider Student in an Organized Health Care Education/Training Program
DX: J96.01 Acute respiratory failure with hypoxia (principal); I13.0 Hypertensive heart and chronic kidney disease with heart failure and stage 1 through stage 4 chronic kidney disease, or unspecified chronic kidney disease; I50.23 Acute on chronic systolic (congestive) heart failure; N17.9 Acute kidney failure, unspecified; Z68.43 Body mass index [BMI] 50.0-59.9, adult; N18.4 Chronic kidney disease, stage 4 (severe); J96.12 Chronic respiratory failure with hypercapnia; I48.0 Paroxysmal atrial fibrillation; E03.9 Hypothyroidism, unspecified; E78.5 Hyperlipidemia, unspecified; E66.01 Morbid (severe) obesity due to excess calories; E11.22 Type 2 diabetes mellitus with diabetic chronic kidney disease; E11.42 Type 2 diabetes mellitus with diabetic polyneuropathy; G47.33 Obstructive sleep apnea (adult) (pediatric); I25.10 Atherosclerotic heart disease of native coronary artery without angina pectoris; Z88.0 Allergy status to penicillin; Z79.4 Long term (current) use of insulin; Z79.84 Long term (current) use of oral hypoglycemic drugs; Z79.85 Long-term (current) use of injectable non-insulin antidiabetic drugs; Z20.822 Contact with and (suspected) exposure to COVID-19; Z99.89 Dependence on other enabling machines and devices; Z95.5 Presence of coronary angioplasty implant and graft
CPT/HCPCS: 36415; 36600; 71045; 71275; 76775; 80048; 80053; 81001; 81050; 82140; 82375; 82550; 82570; 82803; 82805; 82948; 83036; 83050; 83735; 83880; 84100; 84156; 84300; 84484; 84540; 85018; 85025; 85610; 85730; 85999; 86704; 86706; 87340; 87637; 93005; 93970; 94003; 94618; 94762; 96374; 96375; 97162; 97165; 99291; A9270; C8929; G0378; J0780; J1644; J1815; J1940; J7030; Q9957; Q9967

== ENCOUNTER 2024-12-09 13:41 | Outpatient (CLI) | payer MEDICARE, MEDICAID, SELFPAY ==
--- NOTE | 2025-01-02 12:21 | P.PCNPFT_ITS ---
PFT Procedure Performed PFT Procedure Performed Spirometry with Pre/Post Bronchodilator Plethysmography (Lung Vol) Diffusing Cap (DLCO) Flow Vol Loop PFT Interpretation DOS: 12/09/2024 REQUESTING: Mireya Laws MD REASON FOR TESTING: Shortness of breath PULMONARY FUNCTION TESTS Results are reliable and reproducible. Repeatability of spirometry FEV1 maneuver pre and post bronchodilator is Grade A. Colton: GLI 2012 reference equations were used. Spirometry: The pre-bronchodilator FEV1 is 1.95 L, 90%, normal. The pre- bronchodilator FVC is 2.47 L, 90%. The FEV1/FVC ratio is 79%. After bronchodilator, the FEV1 is 1.99 L, 92%, +2. After bronchodilator, the FVC is 2.50 L, 91%, +1. The FEV1/FVC ratio is 80%. Lung volumes: The total lung capacity is 4.29 L, 91%. The residual volume is 1.63 L, 81%. The RV/TLC is 38%. The functional reserve capacity is 2.13 L, 79%. Airway resistance is normal. Diffusion: DLCO is 14.3, 71%. The DLCO/VA is 3.61, 81%. Flow volume loop: The flow volume loop shows a normal tracing. IMPRESSION: Normal spirometry without response to bronchodilator, normal lung volumes, normal diffusion. Lack of response to bronchodilator should not preclude use if clinically indicated. There are no prior studies for comparison Mireya Laws MD
--- NOTE | 2025-01-02 12:21 | WPDSIXMINUTE ---
Six Minute Walk Procedure Procedure Performed Pulmonary Stress Test (6 min walk) Six Minute Walk Six Minute Walk: DATE OF SERVICE: 12/09/2024 REQUESTING: Mireya Laws MD REASON FOR TESTING: Shortness of breath SIX MINUTE WALK This test was conducted per ATS guidelines. The patient used a wheeled walker for stability The initial saturation was 96%, and initial heart rate was 76 beats per minute. The patient walked without stopping, completing 243.8 m/800 feet. The saturation at the end of testing was 97%, and the heart rate was 99 beats per minute. The Zaria score for fatigue and dyspnea was 1 initially, and 3 at the end of testing. IMPRESSION: This is a normal study. The patient did not require supplemental oxygen with exertion. Mireya Laws MD
== END 2024-12-09 13:42 | disposition home or self-care (01) ==
LOC: ANHPFT 13:43
PROVIDERS: PCP Family Medicine; Visit Provider Internal Medicine Critical Care Medicine
DX: J96.92 Respiratory failure, unspecified with hypercapnia (principal); J45.909 Unspecified asthma, uncomplicated
CPT/HCPCS: 94060; 94618; 94726; 94729